=== PATIENT | male | born 1950 | race Hispanic/Latino ===

== ENCOUNTER 2016-07-20 12:24 | Inpatient (IN) | payer MEDICARE ==
[~2016-07-20] VITALS: Ht 170.2 cm; Wt 63.5 kg
[2016-07-20 12:24] VITALS: BP 122/69
[~2016-07-20 12:24] MED LIST: ACETAMINOPHEN325 M1 ORAL; ACETAMINOPHEN500 M5 PO; ACTOS15 MG ORAL; ACTOS30 MG ORAL; ASPIRIN; ASPIRIN81 MG ORAL; ATIVAN2 MG/ML PO; ATORVASTATIN CA80 MG ORAL; BUSPAR10 MG ORAL; CATAPRES0.1 MG ORAL; CEFTRIAXONE1 G2 IVPB; CIPRO500 MG PO; CLONIDINE0.1 MG ORAL; CLOPIDOGREL75 MG ORAL; COLACE100 MG ORAL; DILANTIN50 MG PO; DITROPAN XL5 MG ORAL; DOCUSATE SODIU100 MG ORAL; FEOSOL325 MG ORAL; FERROUS SULFAT325 MG ORAL; FINASTERIDE5 MG ORAL; FLOMAX0.4 MG ORAL; GEODON20 MG ORAL; GEODON40 MG ORAL; GLUCOPHAGE500 MG ORAL; GLUCOSE4 GM PO; HEPARIN SO5000 UNIT2 SUBQ; HEPARIN2000 UNIT/ SUBQ; IBUPROFEN400 MG ORAL; JANUMET 50-1,01 EACH ORAL; JANUVIA100 MG ORAL; KEPPRA500 MG ORAL; LAMICTAL25 MG ORAL; LEVAQUIN500 MG ORAL; LEVEMIR FL100 UNIT/1 SUBQ; LEVETIRACETAM500 MG ORAL; LISINOPRIL10 MG ORAL; LISINOPRIL20 MG ORAL; LORAZEPAM2 MG/1 M3 IVP; Levetiracetam ORAL; MAGNESIUM OXID400 M1 ORAL; MEGACE400 MG/11 PO; METFORMIN HCL1000 M1 ORAL; METFORMIN HCL500 M1 ORAL; MIRTAZAPINE15 M3 ORAL; MORPHINE 22 MG/1 ML IVP; MYLANTA II30 ML PO; NOVOLOG100 UNIT/3 SUBQ; NOVOLOG100 UNITS1 SUBQ; OMEPRAZOLE20 M2 ORAL; PANTOPRAZOLE SO40 MG ORAL; PLAVIX75 MG ORAL; POLYETHYLENE GL17 GM ORAL; PROSCAR5 MG ORAL; RISPERDAL1 MG ORAL; RISPERDAL2 MG ORAL; ROBITUSSIN DM5 ML PO; SERTRALINE HCL25 MG ORAL; SIMVASTATIN40 MG ORAL; STARLIX60 MG ORAL; TAMSULOSIN HCL0.4 MG ORAL; TRADJENTA5 MG PO; TYLENOL325 MG ORAL; ZESTRIL20 MG ORAL; ZOFRAN 4 MG4 MG/2 ML IVP; ZOFRAN4 M3 IVP; ZOLPIDEM TARTRAT5 MG ORAL; ZYPREXA2.5 MG ORAL
[2016-07-20] MEDS ORDERED: Haloperidol 5mg/ml Inj IM ONE (12:45)
[2016-07-20] MEDS ORDERED: ALBUTEROL2.5 MG/3 M INH (12:58)
[2016-07-20] MEDS ORDERED: DEPAKOTE ER500 MG ORAL (12:58)
[2016-07-20] MEDS ORDERED: STARLIX60 MG ORAL (12:58)
[2016-07-20] MEDS ORDERED: Ipratropium 0.02% Inh Soln 2.5ml UD HHN ONE (13:30)
[2016-07-20] MEDS ORDERED: LORazepam Inj 2mg/ml 1ml IM ONE (13:30)
[2016-07-20] MEDS ORDERED: Albuterol ud Inhalation HHN ONE (13:30)
[2016-07-20 13:40] VITALS: BP 105/58
--- NOTE | 2016-07-20 14:09 | Diagnostic Imaging Report ---
Indication: Dyspnea Comparison: 05/18/16 A single view chest radiograph was obtained. Findings: The left hemidiaphragm is mildly elevated. Heart size is within normal limits. Aorta is mildly patent. Bones are osteopenic. Impression: No acute findings
[2016-07-20 14:38] LABS: APPEARANCE,URINE CLEAR; KETONES,URINE 2+ (NEGATIVE); LEUKOCYTE ESTERASE ,URINE NEGATIVE (NEGATIVE); NITRITE,URINE NEGATIVE (NEGATIVE); PH,URINE 6 (4.5-8.0); PROTEIN,URINE NEGATIVE (NEGATIVE); UROBILINOGEN,URINE 1 MG/DL (0.0-1.0)
[2016-07-20 14:40] LABS: BASOPHILS % (AUTO) 1.2 % (0.0-2.0); EOSINOPHILS % (AUTO) 0.8 % (0.0-3.0); LYMPHOCYTES % (AUTO) 21.6 % (20.0-45.0); MEAN CORPUSCULAR HEMOGLOBIN 29.6 PG (27.0-31.0); MEAN CORPUSCULAR VOLUME 93 FL (80-99); MEAN PLATELET VOLUME 9.5 FL (6.5-10.1); MONOCYTES % (AUTO) 8.6 % (1.0-10.0); NEUTROPHILS % (AUTO) 67.8 % (45.0-75.0); PLATELET COUNT 158 K/UL (150-450); RED BLOOD COUNT 4.23 M/UL (4.70-6.10); RED CELL DISTRIBUTION WIDTH 12.4 % (11.6-14.8); WHITE BLOOD COUNT 6.3 K/UL (4.8-10.8)
[2016-07-20 14:49] LABS: BACTERIA,URINE OCCASIONAL /HPF; SQUAMOUS EPITHELIAL CELL,UR OCCASIONAL /LPF (NONE/OCC); WBC,URINE 0-2 /HPF (0 - 0)
[2016-07-20] MEDS ORDERED: Promethazine/Codeine 5ml UD ORAL PRN (15:00)
[2016-07-20] MEDS ORDERED: Morphine Sulfate 2mg/ml Inj IVP PRN (15:00)
[2016-07-20] MEDS ORDERED: DuoNeb 0.5-3(2.5)mg/3ml neb HHN PRN (15:00)
[2016-07-20] MEDS ORDERED: Nitroglycerin Subl 0.4mg tab (Bottle Of 25) SL PRN (15:00)
--- NOTE | 2016-07-20 15:01 | Emergency Room Report ---
History of Present Illness General Chief Complaint: Upper Respiratory Illness Source: Medical Record Present Illness HPI 65-year-old male presents ED for evaluation. Patient brought in by EMS for evaluation. Per convalescent home patient has been more weak than usual, congested. Patient has history of CVA and schizophrenia. Patient is unable to provide any additional history at this time. No reported fevers or chills. No reported cough chest pain or shortness of breath. Patient has history of COPD. No other aggravating or relieving factors. No other associated symptoms Allergies: Coded Allergies: No Known Allergies (Unverified , 01/05/13) Patient History Past Medical History: DM, HTN, CVA/TIA, seizures, psych hx Past Surgical History: none Social History: Denies: alcohol use, drug use, smoking Immunizations: UTD Reviewed Nursing Documentation: PMH: Agreed, PSxH: Agreed Nursing Documentation-PMH Hx Cardiac Problems: Yes - CHF Hx Hypertension: Yes Hx Diabetes: Yes Hx Cancer: No Hx Gastrointestinal Problems: No History Of Psychiatric Problem: Yes - anxiety disorder; schizophrenia; enecephalapathy Hx Neurological Problems: Yes - CVA, Dysphagia, epilepsy Hx Cerebrovascular Accident: Yes Hx Seizures: Yes Hx Epilepsy: Yes Hx Dysphasia: Yes Review of Systems All Other Systems: negative except mentioned in HPI Physical Exam Vital Signs Date Time Temp Pulse Resp B/P Pulse Ox O2 Delivery O2 Flow Rate FiO2 07/20/16 12:19 98.1 71 16 122/69 95 Room Air Sp02 EP Interpretation: reviewed, normal General Appearance: no apparent distress, alert, GCS 15, non-toxic Head: normocephalic Eyes: bilateral eye PERRL, bilateral eye normal inspection ENT: normal ENT inspection Neck: normal inspection Respiratory: decreased breath sounds, wheezing Cardiovascular #1: regular rate, rhythm, no edema Gastrointestinal: normal bowel sounds, non tender, soft, non-distended, no guarding, no rebound Rectal: deferred Genitourinary: no CVA tenderness Musculoskeletal: normal inspection Neurologic: other - CVA Psychiatric: other - schizophrenia Skin: normal inspection Lymphatic: normal inspection Medical Decision Making Diagnostic Impression: Primary Impression: COPD (chronic obstructive pulmonary disease) Qualified Codes: J44.9 - Chronic obstructive pulmonary disease, unspecified ER Course Hospital Course 65-year-old male presents to ED for reports of coughing congestion. History of COPD Differential diagnoses include: Pneumonia, CHF exacerbation, pneumothorax, fluid overload Clinical course Patient placed on stretcher. 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 After initial history and physical, I ordered nebulizer treatments. I ordered labs, IV fluids, EKG, chest x-ray, blood cultures, UA. Patient placed on nasal cannula with O2 saturation improving Labs - no leukocytosis, hemoglobin/hematocrit stable, electrolytes okay, lactate okay, troponins negative CXR - no acute infiltrate identified abx given. Case discussed with Dr. Gastelum and he agreed to the patient to his service for further care and support I feel this is a highly complex case requiring extensive working including EKG/ Rhythm strip, Xray/CT/US, Blood/urine lab work, repeat exams while in ED, and administration of strong opiates/narcotics for pain control, admission to hospital or close patient follow up. Diagnosis - COPD Patient admitted to floor in serious condition Labs Test 07/20/16 14:00 07/20/16 14:15 White Blood Count 6.3 K/UL (4.8-10.8) Red Blood Count 4.23 M/UL (4.70-6.10) Hemoglobin 12.5 G/DL (14.2-18.0) Hematocrit 39.2 % (42.0-52.0) Mean Corpuscular Volume 93 FL (80-99) Mean Corpuscular Hemoglobin 29.6 PG (27.0-31.0) Mean Corpuscular Hemoglobin Concent 32.0 G/DL (32.0-36.0) Red Cell Distribution Width 12.4 % (11.6-14.8) Platelet Count 158 K/UL (150-450) Mean Platelet Volume 9.5 FL (6.5-10.1) Neutrophils (%) (Auto) 67.8 % (45.0-75.0) Lymphocytes (%) (Auto) 21.6 % (20.0-45.0) Monocytes (%) (Auto) 8.6 % (1.0-10.0) Eosinophils (%) (Auto) 0.8 % (0.0-3.0) Basophils (%) (Auto) 1.2 % (0.0-2.0) Urine Color Yellow Urine Appearance Clear Urine pH 6 (4.5-8.0) Urine Specific [place] 1.010 (1.005-1.035) Urine Protein Negative (NEGATIVE) Urine Glucose (UA) Negative (NEGATIVE) Urine Ketones 2+ (NEGATIVE) Urine Occult Blood 1+ (NEGATIVE) Urine Nitrite Negative (NEGATIVE) Urine Bilirubin Negative (NEGATIVE) Urine Urobilinogen 1 MG/DL (0.0-1.0) Urine Leukocyte Esterase Negative (NEGATIVE) Urine RBC 2-4 /HPF (0 - 0) Urine WBC 0-2 /HPF (0 - 0) Urine Squamous Epithelial Cells Occasional /LPF Urine Bacteria Occasional /HPF (NONE) EKG Diagnostic Results Rate: normal Rhythm: NSR ST Segments: no acute changes ASA given to the pt in ED: No Rhythm Strip Diag. Results EP Interpretation: yes Rhythm: NSR, no PVC's, no ectopy Chest X-Ray Diagnostic Results EP Interpretation: Yes Findings: no consolidation, no effusion, no pneumothorax, no acute cardiopulmonary disease Number of Views: 1 Last Vital Signs Date Time Temp Pulse Resp B/P Pulse Ox O2 Delivery O2 Flow Rate FiO2 07/20/16 13:40 98.1 65 20 105/58 98 Room Air Status: improved Disposition: ADMITTED INPATIENT Condition: Serious Referrals: FABIO GASTELUM (PCP) GRACE JEFFERS M.D. Jul 20, 2016 15:01
[2016-07-20 15:12] LABS: ALANINE AMINOTRANSFERASE 12 U/L (3-41); ALBUMIN/GLOBULIN RATIO 1.6 (1.0-2.7); ANION GAP 13 (5-15); ASPARTATE AMINO TRANSFERASE 19 U/L (5-40); CARBON DIOXIDE 27 mEQ/L (20-30); CHLORIDE 100 mEQ/L (98-107); CREATININE 0.9 mg/dL (0.7-1.2); GLOMERULAR FILTRATION RATE > 60 mL/min (>60); HEMOLYSIS 39; POTASSIUM 4.3 mEQ/L (3.4-4.9); SODIUM 140 mEQ/L (135-145); TOTAL PROTEIN 6.6 g/dL (6.6-8.7); TROPONIN I < 0.30 ng/mL (<=0.30)
--- NOTE | 2016-07-20 15:18 | Infectious Diseases Prog Note ---
Assessment/Plan Problems: (1) Upper respiratory infection Assessment & Plan: will start doxycycline, send influenza screening (2) COPD (chronic obstructive pulmonary disease) Assessment & Plan: with acute exacerbation, continue nebulizer treatment, steroids, and doxycycline (3) DM (diabetes mellitus) Assessment & Plan: recommend tight glycemic control to keep blood glucose between 80-120 (4) HTN (hypertension) Assessment & Plan: continue meds to keep systolic less than 140 Subjective Allergies: Coded Allergies: No Known Allergies (Unverified , 01/05/13) Objective Vital Signs Last 24 Hour Vital Signs Date Time Temp Pulse Resp B/P Pulse Ox O2 Delivery O2 Flow Rate FiO2 07/20/16 13:40 98.1 65 20 105/58 98 Room Air 07/20/16 12:24 71 16 Room Air 07/20/16 12:24 98.1 16 122/69 95 Room Air 07/20/16 12:19 98.1 71 16 122/69 95 Room Air Height (Feet): 5 Height (Inches): 7.00 Weight (Pounds): 140 Laboratory Tests Test 07/20/16 14:00 07/20/16 14:15 White Blood Count 6.3 K/UL (4.8-10.8) Red Blood Count 4.23 M/UL (4.70-6.10) L Hemoglobin 12.5 G/DL (14.2-18.0) L Hematocrit 39.2 % (42.0-52.0) L Mean Corpuscular Volume 93 FL (80-99) Mean Corpuscular Hemoglobin 29.6 PG (27.0-31.0) Mean Corpuscular Hemoglobin Concent 32.0 G/DL (32.0-36.0) Red Cell Distribution Width 12.4 % (11.6-14.8) Platelet Count 158 K/UL (150-450) Mean Platelet Volume 9.5 FL (6.5-10.1) Neutrophils (%) (Auto) 67.8 % (45.0-75.0) Lymphocytes (%) (Auto) 21.6 % (20.0-45.0) Monocytes (%) (Auto) 8.6 % (1.0-10.0) Eosinophils (%) (Auto) 0.8 % (0.0-3.0) Basophils (%) (Auto) 1.2 % (0.0-2.0) Sodium Level 140 mEQ/L (135-145) Potassium Level 4.3 mEQ/L (3.4-4.9) Chloride Level 100 mEQ/L (98-107) Carbon Dioxide Level 27 mEQ/L (20-30) Anion Gap 13 (5-15) Blood Urea Nitrogen 17 mg/dL (7-23) Creatinine 0.9 mg/dL (0.7-1.2) Estimat Glomerular Filtration Rate > 60 mL/min (>60) Glucose Level 152 mg/dL (74-106) H Lactic Acid Level 1.50 mmol/L (0.66-2.22) Calcium Level 9.0 mg/dL (8.6-10.2) Total Bilirubin 0.4 mg/dL (0.0-1.2) Aspartate Amino Transf (AST/SGOT) 19 U/L (5-40) Alanine Aminotransferase (ALT/SGPT) 12 U/L (3-41) Alkaline Phosphatase 42 U/L (40-129) Total Creatine Kinase 104 U/L (38-174) Creatine Kinase MB Pending Troponin I Pending Pro-B-Type Natriuretic Peptide Pending Total Protein 6.6 g/dL (6.6-8.7) Albumin 4.1 g/dL (3.5-5.2) Globulin 2.5 g/dL Albumin/Globulin Ratio 1.6 (1.0-2.7) Urine Color Yellow Urine Appearance Clear Urine pH 6 (4.5-8.0) Urine Specific [place] 1.010 (1.005-1.035) Urine Protein Negative (NEGATIVE) Urine Glucose (UA) Negative (NEGATIVE) Urine Ketones 2+ (NEGATIVE) H Urine Occult Blood 1+ (NEGATIVE) H Urine Nitrite Negative (NEGATIVE) Urine Bilirubin Negative (NEGATIVE) Urine Urobilinogen 1 MG/DL (0.0-1.0) H Urine Leukocyte Esterase Negative (NEGATIVE) Urine RBC 2-4 /HPF (0 - 0) H Urine WBC 0-2 /HPF (0 - 0) Urine Squamous Epithelial Cells Occasional /LPF Urine Bacteria Occasional /HPF (NONE) Current Medications Medications (Trade) Dose Ordered Sig/Kun Route PRN Reason Start Time Stop Time Status Last Admin Dose Admin Acetaminophen (Tylenol) 650 mg Q4H PRN ORAL fever 07/20/16 15:00 08/19/16 14:59 UNV Albuterol/ Ipratropium (DuoNeb 0.5-3(2.5)mg/3ml) 3 ml EVERY 4 HOURS PRN HHN dyspnea 07/20/16 15:00 07/25/16 14:59 UNV Atorvastatin Calcium (Lipitor) 80 mg BEDTIME ORAL 07/20/16 21:00 08/19/16 20:59 UNV Buspirone HCl (Buspar) 7.5 mg BID ORAL 07/20/16 18:00 08/19/16 17:59 UNV Clonidine HCl (Catapres) 0.1 mg EVERY 4 HOURS PRN ORAL sbp more than 160 07/20/16 15:00 08/19/16 14:59 UNV Clonidine HCl (Catapres) 0.1 mg Q6H PRN ORAL For High Blood Pressure 07/20/16 15:00 08/19/16 14:59 UNV Dextrose (Dextrose 50%) STAT PRN IV Hypoglycemia 07/20/16 15:00 08/19/16 14:59 UNV Dextrose (Dextrose 50%) STAT PRN IV Hypoglycemia 07/20/16 15:00 08/19/16 14:59 UNV Divalproex Sodium (Depakote ER) 500 mg EVERY 12 HOURS ORAL 07/20/16 21:00 08/19/16 20:59 UNV Finasteride (Proscar) 5 mg DAILY ORAL 07/21/16 09:00 08/20/16 08:59 UNV Heparin Sodium (Porcine) (Heparin 5000 units/ml) 5,000 units EVERY 12 HOURS SUBQ 07/20/16 21:00 08/19/16 20:59 UNV Insulin Aspart (NovoLOG) BEFORE MEALS AND HS SUBQ 07/20/16 16:30 08/19/16 16:29 UNV Lamotrigine (LaMICtal) 25 mg BID ORAL 07/20/16 18:00 08/19/16 17:59 UNV Lisinopril (Prinivil) 20 mg DAILY ORAL 07/21/16 09:00 08/20/16 08:59 UNV Lorazepam (Ativan 2mg/ml 1ml) 0.5 mg Q4H PRN IV For Anxiety 07/20/16 15:00 07/27/16 14:59 UNV Methylprednisolone Sodium Succinate (Solu-MEDROL) 60 mg EVERY 6 HOURS IV 07/20/16 18:00 08/19/16 17:59 UNV Morphine Sulfate (Morphine Sulfate) 2 mg EVERY 4 HOURS PRN IVP severe pain 7-10 07/20/16 15:00 07/27/16 14:59 UNV Nitroglycerin (Ntg) 0.4 mg Q5M X 3 DOSES PRN SL Prn Chest Pain 07/20/16 15:00 08/19/16 14:59 UNV Olanzapine (ZyPREXA) 2.5 mg BID ORAL 07/20/16 18:00 08/19/16 17:59 UNV Ondansetron HCl (Zofran) 4 mg Q6H PRN IVP Nausea & Vomiting 07/20/16 15:00 08/19/16 14:59 UNV Promethazine HCl/ Codeine (Phenergan with Codeine) 5 ml EVERY 6 HOURS PRN ORAL cough 07/20/16 15:00 08/19/16 14:59 UNV Tamsulosin HCl (Flomax) 0.4 mg BEDTIME ORAL 07/20/16 21:00 08/19/16 20:59 UNV Temazepam (Restoril) 15 mg HSPRN PRN ORAL Insomnia 07/20/16 15:00 07/27/16 14:59 UNV Theophylline (John-Dur) 100 mg EVERY 12 HOURS ORAL 07/20/16 21:00 08/19/16 20:59 UNV Ziprasidone (Geodon) 40 mg DAILY ORAL 07/21/16 09:00 08/20/16 08:59 UNV Marcus Mobley M.D. Jul 20, 2016 15:18
[2016-07-20 15:22] LABS: CKMB 2.5 ng/mL (< 6.7)
[2016-07-20 15:41] VITALS: BP 111/61
--- NOTE | 2016-07-20 16:22 | Consultation ---
History of Present Illness General Date patient seen: Jul 20, 2016 Chief Complaint: Upper Respiratory Illness Present Illness HPI 65-year-old male with hx of CVA, COPD, bed bound, snf resident presents ED for evaluation of weakness, cough, dyspnea and congestion . Patient has history of CVA and schizophrenia. Patient is unable to provide any additional history at this time. No reported fevers or chills. No other aggravating or relieving factors. He is awake, can't communicate but looks comfortable and awake. Allergies: Coded Allergies: No Known Allergies (Unverified , 01/05/13) Medication History Scheduled Aspirin* (Aspirin*), 81 MG ORAL DAILY, (Reported) Atorvastatin Calcium* (Lipitor*), 80 MG ORAL BEDTIME, (Reported) Buspirone Hcl* (Buspar*), 7.5 MG ORAL BID, (Reported) Ceftriaxone Sodium (Ceftriaxone), 1 GM IVPB DAILY, (Reported) Clopidogrel Bisulfate* (Plavix*), 75 MG ORAL DAILY Clopidogrel Bisulfate* (Plavix*), 75 MG ORAL DAILY, (Reported) Divalproex Sodium* (Depakote Er*), 500 MG ORAL EVERY 12 HOURS, (Reported) Docusate Sodium* (Colace*), 100 MG ORAL TWICE A DAY Ferrous Sulfate (Feosol), 325 MG ORAL DAILY Finasteride (Finasteride), 5 MG ORAL DAILY Finasteride* (Proscar*), 5 MG ORAL DAILY, (Reported) Heparin Sod (Porcine) (Heparin Sodium*), 5,000 UNITS SUBQ EVERY 12 HOURS, ( Reported) Insulin Aspart (Novolog Flexpen), 0 UNITS SUBQ NOVOTIAC Insulin Detemir (Levemir Flexpen), 10 UNITS SUBQ BIAC Lamotrigine* (Lamictal*), 25 MG ORAL BID Lisinopril (Lisinopril*), 20 MG ORAL DAILY Lisinopril* (Zestril*), 20 MG ORAL DAILY, (Reported) Magnesium Oxide (Magnesium Oxide), 400 MG ORAL BID, (Reported) Megestrol Acetate (Megace), 400 MG PO DAILY, (Reported) Metformin Hcl* (Glucophage*), 500 MG ORAL BEFORE BREAKFAST Metformin Hcl* (Metformin Hcl*), 1,000 MG ORAL BID, (Reported) Nateglinide* (Starlix*), 120 MG ORAL THREE TIMES A DAY, (Reported) Nateglinide* (Starlix*), 120 MG ORAL THREE TIMES A DAY, (Reported) Olanzapine* (Zyprexa*), 2.5 MG ORAL BID, (Reported) Oxybutynin Chloride (Ditropan Xl), 2.5 MG ORAL BID, (Reported) Sitagliptin (Januvia), 100 MG ORAL ACBREAKFAST Tamsulosin HCl (Flomax), 0.4 MG ORAL BEDTIME Ziprasidone Hcl* (Geodon*), 40 MG ORAL DAILY [Levetiracetam], 500 MG ORAL Q12HR Scheduled PRN Acetaminophen* (Acetaminophen*), 650 MG ORAL Q6H PRN for Mild Pain/Temp > 100.5 Al Hydroxide/mg Hydroxide (Mag-Al Plus Suspension), 30 ML PO Q6HR PRN for dyspepsia, (Reported) Albuterol Sulfate* (Albuterol Sulfate Hhn*), 3 ML INH Q6H PRN for Shortness of Breath, (Reported) Clonidine HCl (Clonidine HCl), 0.1 MG ORAL Q6H PRN for For High Blood Pressure Clonidine Hcl* (Catapres*), 0.1 MG ORAL EVERY 6 HOURS PRN for For High Blood Pressure, (Reported) Lorazepam (Lorazepam), 0.5 MG IVP Q4H PRN for For Anxiety, (Reported) Morphine Sulfate* (Morphine Sulfate*), 1 MG IVP Q4HR PRN for For Pain, (Reported ) Ondansetron* (Zofran*), 4 MG IVP Q6HR PRN for Nausea & Vomiting, (Reported) Ondansetron* (Zofran*), 4 MG IVP Q6H PRN for Nausea & Vomiting, (Reported) Polyethylene Glycol 3350* (Polyethylene Glycol 3350*), 17 GM ORAL HS PRN for Constipation, (Reported) Zolpidem Tartrate* (Zolpidem Tartrate*), 5 MG ORAL BEDTIME PRN for Insomnia, ( Reported) Patient History Healthcare decision maker Resuscitation status Advanced Directive on File Past Medical/Surgical History Past Medical/Surgical History: (1) Arterial ischemic stroke, multifocal, mult vascular territories, chron (2) HTN (hypertension) (3) DM (diabetes mellitus) (4) COPD (chronic obstructive pulmonary disease) (5) Seizure disorder Review of Systems Respiratory: Reports: cough, shortness of breath All Other Systems: negative except mentioned in HPI Physical Exam General Appearance: WD/WN Lines, tubes and drains: peripheral, central line HEENT: normocephalic, atraumatic Neck: non-tender, normal alignment, abnormal alignment, limited range of motion Respiratory/Chest: chest wall non-tender, lungs clear Breasts: no masses Cardiovascular/Chest: normal peripheral pulses Abdomen: normal bowel sounds, non tender Last 24 Hour Vital Signs Date Time Temp Pulse Resp B/P Pulse Ox O2 Delivery O2 Flow Rate FiO2 07/20/16 15:41 98.0 66 15 111/61 95 Room Air 07/20/16 13:40 98.1 65 20 105/58 98 Room Air 07/20/16 12:24 71 16 Room Air 07/20/16 12:24 98.1 16 122/69 95 Room Air 07/20/16 12:19 98.1 71 16 122/69 95 Room Air Laboratory Tests Test 07/20/16 14:00 07/20/16 14:15 White Blood Count 6.3 K/UL (4.8-10.8) Red Blood Count 4.23 M/UL (4.70-6.10) L Hemoglobin 12.5 G/DL (14.2-18.0) L Hematocrit 39.2 % (42.0-52.0) L Mean Corpuscular Volume 93 FL (80-99) Mean Corpuscular Hemoglobin 29.6 PG (27.0-31.0) Mean Corpuscular Hemoglobin Concent 32.0 G/DL (32.0-36.0) Red Cell Distribution Width 12.4 % (11.6-14.8) Platelet Count 158 K/UL (150-450) Mean Platelet Volume 9.5 FL (6.5-10.1) Neutrophils (%) (Auto) 67.8 % (45.0-75.0) Lymphocytes (%) (Auto) 21.6 % (20.0-45.0) Monocytes (%) (Auto) 8.6 % (1.0-10.0) Eosinophils (%) (Auto) 0.8 % (0.0-3.0) Basophils (%) (Auto) 1.2 % (0.0-2.0) Sodium Level 140 mEQ/L (135-145) Potassium Level 4.3 mEQ/L (3.4-4.9) Chloride Level 100 mEQ/L (98-107) Carbon Dioxide Level 27 mEQ/L (20-30) Anion Gap 13 (5-15) Blood Urea Nitrogen 17 mg/dL (7-23) Creatinine 0.9 mg/dL (0.7-1.2) Estimat Glomerular Filtration Rate > 60 mL/min (>60) Glucose Level 152 mg/dL (74-106) H Lactic Acid Level 1.50 mmol/L (0.66-2.22) Calcium Level 9.0 mg/dL (8.6-10.2) Total Bilirubin 0.4 mg/dL (0.0-1.2) Aspartate Amino Transf (AST/SGOT) 19 U/L (5-40) Alanine Aminotransferase (ALT/SGPT) 12 U/L (3-41) Alkaline Phosphatase 42 U/L (40-129) Total Creatine Kinase 104 U/L (38-174) Creatine Kinase MB 2.5 ng/mL (< 6.7) Creatine Kinase MB Relative Index 2.4 Troponin I < 0.30 ng/mL (<=0.30) Pro-B-Type Natriuretic Peptide 241 pg/mL (0-125) H Total Protein 6.6 g/dL (6.6-8.7) Albumin 4.1 g/dL (3.5-5.2) Globulin 2.5 g/dL Albumin/Globulin Ratio 1.6 (1.0-2.7) Urine Color Yellow Urine Appearance Clear Urine pH 6 (4.5-8.0) Urine Specific [place] 1.010 (1.005-1.035) Urine Protein Negative (NEGATIVE) Urine Glucose (UA) Negative (NEGATIVE) Urine Ketones 2+ (NEGATIVE) H Urine Occult Blood 1+ (NEGATIVE) H Urine Nitrite Negative (NEGATIVE) Urine Bilirubin Negative (NEGATIVE) Urine Urobilinogen 1 MG/DL (0.0-1.0) H Urine Leukocyte Esterase Negative (NEGATIVE) Urine RBC 2-4 /HPF (0 - 0) H Urine WBC 0-2 /HPF (0 - 0) Urine Squamous Epithelial Cells Occasional /LPF Urine Bacteria Occasional /HPF (NONE) Microbiology Date/Time Source Procedure Growth Status 07/20/16 14:15 Nasal Nares Influenza Types A,B Antigen (LIZA) - Final Complete Height (Feet): 5 Height (Inches): 7.00 Weight (Pounds): 140 Medications Current Medications Medications (Trade) Dose Ordered Sig/Kun Route PRN Reason Start Time Stop Time Status Last Admin Dose Admin Acetaminophen (Tylenol) 650 mg Q4H PRN ORAL fever 07/20/16 15:00 08/19/16 14:59 UNV Albuterol/ Ipratropium (DuoNeb 0.5-3(2.5)mg/3ml) 3 ml EVERY 4 HOURS PRN HHN dyspnea 07/20/16 15:00 07/25/16 14:59 UNV Atorvastatin Calcium (Lipitor) 80 mg BEDTIME ORAL 07/20/16 21:00 08/19/16 20:59 UNV Buspirone HCl (Buspar) 7.5 mg BID ORAL 07/20/16 18:00 08/19/16 17:59 UNV Clonidine HCl (Catapres) 0.1 mg EVERY 4 HOURS PRN ORAL sbp more than 160 07/20/16 15:00 08/19/16 14:59 UNV Dextrose (Dextrose 50%) STAT PRN IV Hypoglycemia 07/20/16 15:00 08/19/16 14:59 Divalproex Sodium (Depakote ER) 500 mg EVERY 12 HOURS ORAL 07/20/16 21:00 08/19/16 20:59 UNV Doxycycline Monohydrate (Vibramycin) 100 mg ONCE ONCE ORAL 07/20/16 15:30 07/20/16 15:31 UNV Finasteride (Proscar) 5 mg DAILY ORAL 07/21/16 09:00 08/20/16 08:59 UNV Heparin Sodium (Porcine) (Heparin 5000 units/ml) 5,000 units EVERY 12 HOURS SUBQ 07/20/16 21:00 08/19/16 20:59 UNV Insulin Aspart (NovoLOG) BEFORE MEALS AND HS SUBQ 07/20/16 16:30 08/19/16 16:29 UNV Lamotrigine (LaMICtal) 25 mg BID ORAL 07/20/16 18:00 08/19/16 17:59 UNV Lisinopril (Prinivil) 20 mg DAILY ORAL 07/21/16 09:00 08/20/16 08:59 UNV Lorazepam (Ativan 2mg/ml 1ml) 0.5 mg Q4H PRN IV For Anxiety 07/20/16 15:00 07/27/16 14:59 UNV Methylprednisolone Sodium Succinate (Solu-MEDROL) 60 mg EVERY 6 HOURS IV 07/20/16 18:00 08/19/16 17:59 UNV Morphine Sulfate (Morphine Sulfate) 2 mg EVERY 4 HOURS PRN IVP severe pain 7-10 07/20/16 15:00 07/27/16 14:59 UNV Nitroglycerin (Ntg) 0.4 mg Q5M X 3 DOSES PRN SL Prn Chest Pain 07/20/16 15:00 08/19/16 14:59 Olanzapine (ZyPREXA) 2.5 mg BID ORAL 07/20/16 18:00 08/19/16 17:59 UNV Ondansetron HCl (Zofran) 4 mg Q6H PRN IVP Nausea & Vomiting 07/20/16 15:00 08/19/16 14:59 UNV Promethazine HCl/ Codeine (Phenergan with Codeine) 5 ml EVERY 6 HOURS PRN ORAL cough 07/20/16 15:00 08/19/16 14:59 Tamsulosin HCl (Flomax) 0.4 mg BEDTIME ORAL 07/20/16 21:00 08/19/16 20:59 UNV Temazepam (Restoril) 15 mg HSPRN PRN ORAL Insomnia 07/20/16 15:00 07/27/16 14:59 UNV Theophylline (John-Dur) 100 mg EVERY 12 HOURS ORAL 07/20/16 21:00 08/19/16 20:59 UNV Ziprasidone (Geodon) 40 mg DAILY ORAL 07/21/16 09:00 08/20/16 08:59 UNV Assessment/Plan Problem List: (1) Upper respiratory infection ICD Codes: J06.9 - Acute upper respiratory infection, unspecified SNOMED: 04690257 Qualifiers: (2) COPD with acute exacerbation ICD Codes: J44.1 - Chronic obstructive pulmonary disease with (acute) exacerbation SNOMED: 983260086 (3) Seizure disorder ICD Codes: G40.909 - Seizure disorder SNOMED: 585833914 (4) Episode of generalized weakness ICD Codes: R53.1 - Weakness SNOMED: 02759124 (5) HTN (hypertension) ICD Codes: I10 - Hypertension SNOMED: 59504621 Qualifiers: Qualified Codes: I10 - Essential (primary) hypertension Assessment/Plan respiratory treatment IV antibiotics check sputum check cultures f/u MICHELLE Segal Jul 20, 2016 16:22
[2016-07-20 17:41] VITALS: BP 125/70
[2016-07-20 19:56] VITALS: BP 160/83
[2016-07-20] MEDS: Atorvastatin 80mg tab ORAL SCH (21:00)
[2016-07-20] MEDS: Heparin 5000 units/ml inj SUBQ SCH (21:00)
[2016-07-20] MEDS: Tamsulosin 0.4mg cap ORAL SCH (21:00)
[2016-07-20] MEDS: Theophylline ER 100mg ORAL SCH (21:00)
[2016-07-20] MEDS ORDERED: LORazepam 1mg tab ORAL ONE (22:30)
[2016-07-20] MEDS ORDERED: cloNIDine 0.2mg Tab ORAL ONE (22:30)
[2016-07-20 22:50] VITALS: BP 146/76
--- NOTE | 2016-07-20 23:58 | History and Physical Report ---
DATE OF ADMISSION: 07/20/2016 TIME SEEN: At 3 p.m. ADMITTING PHYSICIAN: Nura Carter M.D. CONSULTING PHYSICIAN: 1. Mey Latham M.D. 2. Marcus Mobley M.D. 3. Berto Umana M.D. CHIEF COMPLAINT: Shortness of breath. BRIEF HISTORY OF PRESENT ILLNESS: This is a 65-year-old male, from [facility], presents to [place] ER with history of increasing shortness of breath for two days, getting worse, coughing, diagnosed with pneumonia and sepsis and encephalopathy, being admitted to the medical floor. Currently, calm in bed in the ER and not talking. REVIEW OF SYSTEMS: Not available. PAST MEDICAL HISTORY: Encephalopathy, CVA, and COPD. PAST SURGICAL HISTORY: Unknown. ALLERGIES: Denies. MEDICATIONS: Proscar, Prinivil, Geodon, Depakote, Lamictal, Zyprexa, Flomax, Solu-Medrol, and Catapres. SOCIAL HISTORY: No smoke. No alcohol. No intravenous drug abuse. FAMILY HISTORY: Noncontributory. PHYSICAL EXAMINATION: GENERAL: The patient is lethargic, in bed, oriented x1, no acute distress. VITAL SIGNS: Temperature is 98 degrees, pulse 65, respirations 20, and blood pressure 105/58. CARDIOVASCULAR: No murmur. LUNGS: Poor air exchange. ABDOMEN: Bowel sounds are positive. Nontender. Nondistended. EXTREMITIES: No cyanosis, clubbing, or edema. NEUROLOGICAL: The patient moves all extremities, slightly weak, x4. LABORATORY DATA: Hemoglobin is 12.5, otherwise CBC is normal. BMP is pending. Urinalysis, 2+ ketones and 1+ occult blood. ASSESSMENT: 1. Shortness of breath. 2. Pneumonia. 3. Encephalopathy. 4. Cerebrovascular accident. 5. Anemia. 6. Chronic obstructive pulmonary disease. PLAN: Continue premedications. O2 and pulmonary treatment. Steroids . Antibiotics per Infectious Diseases. Blood pressure and blood sugar control. Psychiatric treatment. OT/PT and dietary evaluation. CBC and BMP in the morning. Nura Carter D.O. DR: Adilia JOB#: [id number] CC:
--- NOTE | 2016-07-21 01:07 | Consultation ---
DATE OF CONSULTATION: REASON FOR CONSULTATION: Upper respiratory infection, COPD exacerbation, and recommendation for antibiotics therapy. REQUESTING PHYSICIAN: Nura Carter D.O. HISTORY OF PRESENT ILLNESS: The patient is a 65-year-old male with psychiatric disorder, dementia, and schizophrenia, was brought into [facility] for evaluation of upper respiratory illness. The patient was found to be congested. He is a poor historian, cannot provide any history. In the emergency room, temperature was 98.1 degrees with O2 saturation 95% on room air. Lung exam showed wheezing with diminished breathing sounds. Chest x-ray showed no evidence of acute infiltration or effusion. The patient was admitted to the hospital for evaluation of upper respiratory infection, bronchitis, and COPD exacerbation and I was asked by the primary provider for antibiotics recommendation. PAST MEDICAL HISTORY: Significant for diabetes, hypertension, CVA, seizure, and schizophrenia. PAST SURGICAL HISTORY: Negative. MEDICATIONS: He is on Proscar, Geodon, Lipitor, Depakote, Flomax, theophylline, BuSpar, lamotrigine, Zyprexa, methylprednisolone, NovoLog, Catapres, DuoNeb, Tylenol, morphine, Zofran, Ativan, Restoril, and nitroglycerin. ALLERGIES: He has no known drug allergy. SOCIAL HISTORY: He lives in detention facility. No recent drugs, tobacco, or alcohol. FAMILY HISTORY: Unable to obtain at this time. REVIEW OF SYSTEMS: Unable to obtain. The patient is a poor historian, cannot provide any history. PHYSICAL EXAMINATION: VITAL SIGNS: Temperature 98.1 degrees, pulse 65, respiration 20, blood pressure 105/68, and saturation 98% on room air. GENERAL: The patient is a middle-age male with dementia, lying in bed, alert, nonverbal, does not follow commands. HEENT: Normocephalic and atraumatic. Pupils reactive to light . NECK: Supple. No lymphadenopathy. CARDIOVASCULAR: Regular rate and rhythm. No murmur. LUNGS: Diminished breathing sound with wheezing on both sides. ABDOMEN: Soft, nontender, and nondistended. Positive bowel sounds. EXTREMITIES: No edema. No cyanosis. SKIN: No rash. No hives. LABORATORY AND DIAGNOSTIC DATA: Labs showed white count of 6.3, hemoglobin 12.5, platelet count of 158,000. BUN and creatinine so far pending. AST and ALT are pending. Urinalysis showed negative leukocyte esterase, negative nitrite, and 0-2 WBC. Microbiology pending. Imaging, chest x-ray showed no evidence of acute infiltration or effusion. ASSESSMENT AND PLAN: 1. Upper respiratory infection. The patient will be started on doxycycline empirically. We will send influenza screening. Await results. 2. Chronic obstructive pulmonary disease with acute exacerbation. Continue nebulizer treatment, steroids, and start doxycycline. 3. Diabetes. Recommend tight glycemic control to keep blood glucose between 80 to 120. 4. Hypertension. Continue oral medications to keep systolic blood sugar less than 140. 5. Psychiatric disorder, schizophrenic. Continue psychiatric medications. Follow up with Psychiatry. Marcus Mobley M.D. DR: Adam JOB#: [id number] CC: MASON
[2016-07-21 04:00] VITALS: BP 127/73
[2016-07-21] MEDS: Solu-MEDROL 125mg Inj IV SCH ×4 (06:04→17:28)
[2016-07-21] MEDS: NovoLOG Insulin Flexpen SUBQ SCH ×4 (06:32→20:34)
[2016-07-21 08:00] VITALS: BP 105/59
[2016-07-21 08:22] LABS: BASOPHILS % (AUTO) 0.5 % (0.0-2.0); EOSINOPHILS % (AUTO) 0.3 % (0.0-3.0); LYMPHOCYTES % (AUTO) 17.4 % (20.0-45.0); MEAN CORPUSCULAR HEMOGLOBIN 31.2 PG (27.0-31.0); MEAN CORPUSCULAR VOLUME 92 FL (80-99); MEAN PLATELET VOLUME 9.4 FL (6.5-10.1); MONOCYTES % (AUTO) 3.5 % (1.0-10.0); NEUTROPHILS % (AUTO) 78.4 % (45.0-75.0); PLATELET COUNT 151 K/UL (150-450); RED BLOOD COUNT 3.84 M/UL (4.70-6.10); RED CELL DISTRIBUTION WIDTH 12.4 % (11.6-14.8)
[2016-07-21 08:46] LABS: ALANINE AMINOTRANSFERASE 9 U/L (3-41); ALBUMIN/GLOBULIN RATIO 1.4 (1.0-2.7); ANION GAP 15 (5-15); ASPARTATE AMINO TRANSFERASE 15 U/L (5-40); CALCIUM 9.2 mg/dL (8.6-10.2); CARBON DIOXIDE 27 mEQ/L (20-30); CHLORIDE 101 mEQ/L (98-107); CREATININE 0.8 mg/dL (0.7-1.2); GLOMERULAR FILTRATION RATE > 60 mL/min (>60); HEMOLYSIS 5; POTASSIUM 4.4 mEQ/L (3.4-4.9); SODIUM 143 mEQ/L (135-145); TOTAL PROTEIN 6.4 g/dL (6.6-8.7)
[2016-07-21] MEDS: Lisinopril 20mg tab ORAL SCH (09:00)
[2016-07-21] MEDS: Heparin 5000 units/ml inj SUBQ SCH ×2 (09:00→20:33)
[2016-07-21] MEDS: Theophylline ER 100mg ORAL SCH ×2 (09:16→20:30)
[2016-07-21] MEDS: Depakote ER 500mg tab ORAL SCH ×2 (09:16→20:31)
[2016-07-21] MEDS: BusPIRone 5mg Tab ORAL SCH ×2 (09:18→17:28)
[2016-07-21] MEDS: Ziprasidone 20mg cap ORAL SCH (10:33)
[2016-07-21] MEDS: OLANZapine 2.5mg tab ORAL SCH ×3 (10:33→20:30)
[2016-07-21 12:00] VITALS: BP 115/63
--- NOTE | 2016-07-21 14:56 | General Progress Note ---
Assessment/Plan Problem List: (1) Pneumonia ICD Codes: J18.9 - Pneumonia, unspecified organism SNOMED: 102910761 (2) Arterial ischemic stroke, MCA (middle cerebral artery), right, chronic ICD Codes: Z86.73 - Arterial ischemic stroke, MCA (middle cerebral artery), right, chronic SNOMED: 399909905 (3) Sepsis ICD Codes: A41.9 - Sepsis, unspecified organism SNOMED: 32438718 (4) Encephalopathy ICD Codes: G93.40 - Encephalopathy, unspecified SNOMED: 71747844 (5) Episode of generalized weakness ICD Codes: R53.1 - Weakness SNOMED: 61666183 (6) Seizure disorder ICD Codes: G40.909 - Seizure disorder SNOMED: 643129980 (7) HTN (hypertension) ICD Codes: I10 - Hypertension SNOMED: 14808157 (8) COPD (chronic obstructive pulmonary disease) ICD Codes: J44.9 - Chronic obstructive pulmonary disease, unspecified SNOMED: 60511413 Qualifiers: Qualified Codes: J44.9 - Chronic obstructive pulmonary disease, unspecified Status: stable, progressing, tolerating diet Assessment/Plan o2 pulm tx ot pt diet abx cbc bmp am Subjective Constitutional: Reports: weakness Allergies: Coded Allergies: No Known Allergies (Unverified , 01/05/13) All Systems: reviewed and negative except above Subjective sleepy calm Objective Last 24 Hour Vital Signs Date Time Temp Pulse Resp B/P Pulse Ox O2 Delivery O2 Flow Rate FiO2 07/21/16 12:00 97.2 62 18 115/63 98 07/21/16 09:00 105/59 07/21/16 08:00 96.1 61 19 105/59 95 07/21/16 04:00 98.2 92 20 127/73 95 Room Air 07/20/16 22:50 97.3 67 18 146/76 94 Room Air 07/20/16 22:41 98.0 68 14 175/90 98 Room Air 07/20/16 22:39 175/90 07/20/16 21:17 Room Air 07/20/16 21:16 62 15 98 Room Air 07/20/16 21:16 62 15 Room Air 07/20/16 19:56 98.0 62 15 160/83 98 Room Air 07/20/16 17:41 98.0 67 11 125/70 96 Room Air 07/20/16 15:41 98.0 66 15 111/61 95 Room Air Intake and Output 07/20/16 07/21/16 18:59 06:59 Intake Total 120 ml Balance 120 ml Intake Oral 120 ml # Bowel Movements 2 Laboratory Tests 07/21/16 07:30: White Blood Count 5.0, Red Blood Count 3.84L, Hemoglobin 12.0L, Hematocrit 35.2L , Mean Corpuscular Volume 92, Mean Corpuscular Hemoglobin 31.2H, Mean Corpuscular Hemoglobin Concent 34.0, Red Cell Distribution Width 12.4, Platelet Count 151, Mean Platelet Volume 9.4, Neutrophils (%) (Auto) 78.4H, Lymphocytes ( %) (Auto) 17.4L, Monocytes (%) (Auto) 3.5, Eosinophils (%) (Auto) 0.3, Basophils (%) (Auto) 0.5, Sodium Level 143, Potassium Level 4.4, Chloride Level 101, Carbon Dioxide Level 27, Anion Gap 15, Blood Urea Nitrogen 18, Creatinine 0.8, Estimat Glomerular Filtration Rate > 60, Glucose Level 205H, Calcium Level 9.2, Total Bilirubin 0.4, Aspartate Amino Transf (AST/SGOT) 15, Alanine Aminotransferase (ALT/SGPT) 9, Alkaline Phosphatase 48, Total Protein 6.4L, Albumin 3.8, Globulin 2.6, Albumin/Globulin Ratio 1.4 Height (Feet): 5 Height (Inches): 7.00 Weight (Pounds): 140 General Appearance: lethargic EENT: normal ENT inspection Neck: normal alignment Cardiovascular: normal peripheral pulses, normal rate, regular rhythm Respiratory/Chest: chest wall non-tender, lungs clear, normal breath sounds Abdomen: normal bowel sounds, non tender, soft Extremities: normal inspection Edema: no edema noted Arm (L), no edema noted Arm (R), no edema noted Leg (L), no edema noted Leg (R), no edema noted Pedal (L), no edema noted Pedal (R), no edema noted Generalized Neurologic: motor weakness Skin: normal pigmentation, warm/dry FABIO GASTELUM Jul 21, 2016 14:56
[2016-07-21 16:00] VITALS: BP 100/61
--- NOTE | 2016-07-21 17:29 | Pulmonology Progress Note ---
Assessment/Plan Problems: (1) Upper respiratory infection (2) COPD with acute exacerbation (3) Seizure disorder (4) Episode of generalized weakness (5) HTN (hypertension) Assessment/Plan respiratory treatment IV antibiotics check sputum tolerating diet improving already dc planning in 1/2 days Subjective ROS Limited/Unobtainable: No Constitutional: Reports: no symptoms HEENT: Repors: no symptoms Respiratory: Reports: no symptoms Allergies: Coded Allergies: No Known Allergies (Unverified , 01/05/13) Objective Last 24 Hour Vital Signs Date Time Temp Pulse Resp B/P Pulse Ox O2 Delivery O2 Flow Rate FiO2 07/21/16 12:00 97.2 62 18 115/63 98 07/21/16 09:00 105/59 07/21/16 08:00 96.1 61 19 105/59 95 07/21/16 04:00 98.2 92 20 127/73 95 Room Air 07/20/16 22:50 97.3 67 18 146/76 94 Room Air 07/20/16 22:41 98.0 68 14 175/90 98 Room Air 07/20/16 22:39 175/90 07/20/16 21:17 Room Air 07/20/16 21:16 62 15 98 Room Air 07/20/16 21:16 62 15 Room Air 07/20/16 19:56 98.0 62 15 160/83 98 Room Air 07/20/16 17:41 98.0 67 11 125/70 96 Room Air Intake and Output 07/20/16 07/21/16 18:59 06:59 Intake Total 120 ml Balance 120 ml Intake Oral 120 ml # Bowel Movements 2 HEENT: normocephalic, atraumatic Respiratory/Chest: chest wall non-tender, lungs clear Cardiovascular: normal peripheral pulses, normal rate Abdomen: normal bowel sounds, soft, non tender Extremities: no cyanosis 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 Microbiology Date/Time Source Procedure Growth Status 07/20/16 14:15 Nasal Nares Influenza Types A,B Antigen (LIZA) - Final Complete Laboratory Tests 07/21/16 07:30: White Blood Count 5.0, Red Blood Count 3.84L, Hemoglobin 12.0L, Hematocrit 35.2L , Mean Corpuscular Volume 92, Mean Corpuscular Hemoglobin 31.2H, Mean Corpuscular Hemoglobin Concent 34.0, Red Cell Distribution Width 12.4, Platelet Count 151, Mean Platelet Volume 9.4, Neutrophils (%) (Auto) 78.4H, Lymphocytes ( %) (Auto) 17.4L, Monocytes (%) (Auto) 3.5, Eosinophils (%) (Auto) 0.3, Basophils (%) (Auto) 0.5, Sodium Level 143, Potassium Level 4.4, Chloride Level 101, Carbon Dioxide Level 27, Anion Gap 15, Blood Urea Nitrogen 18, Creatinine 0.8, Estimat Glomerular Filtration Rate > 60, Glucose Level 205H, Calcium Level 9.2, Total Bilirubin 0.4, Aspartate Amino Transf (AST/SGOT) 15, Alanine Aminotransferase (ALT/SGPT) 9, Alkaline Phosphatase 48, Total Protein 6.4L, Albumin 3.8, Globulin 2.6, Albumin/Globulin Ratio 1.4 Current Medications Medications (Trade) Dose Ordered Sig/Kun Route PRN Reason Start Time Stop Time Status Last Admin Dose Admin Acetaminophen (Tylenol) 650 mg Q4H PRN ORAL fever 07/20/16 15:00 08/19/16 14:59 Albuterol/ Ipratropium (DuoNeb 0.5-3(2.5)mg/3ml) 3 ml EVERY 4 HOURS PRN HHN dyspnea 07/20/16 15:00 07/25/16 14:59 Atorvastatin Calcium (Lipitor) 80 mg BEDTIME ORAL 07/20/16 21:00 08/19/16 20:59 07/20/16 21:00 Buspirone HCl (Buspar) 7.5 mg BID ORAL 07/21/16 09:00 08/20/16 08:59 07/21/16 09:18 Clonidine HCl (Catapres) 0.1 mg EVERY 4 HOURS PRN ORAL sbp more than 160 07/20/16 15:00 08/19/16 14:59 Dextrose (Dextrose 50%) STAT PRN IV Hypoglycemia 07/20/16 15:00 08/19/16 14:59 Divalproex Sodium (Depakote ER) 500 mg EVERY 12 HOURS ORAL 07/21/16 09:00 08/20/16 08:59 07/21/16 09:16 Doxycycline Monohydrate (Vibramycin) 100 mg Q12HR ORAL 07/20/16 21:00 07/27/16 20:59 07/21/16 09:16 Finasteride (Proscar) 5 mg DAILY ORAL 07/21/16 09:00 08/20/16 08:59 07/21/16 09:16 Heparin Sodium (Porcine) (Heparin 5000 units/ml) 5,000 units EVERY 12 HOURS SUBQ 07/20/16 21:00 08/19/16 20:59 07/20/16 21:00 Insulin Aspart (NovoLOG) BEFORE MEALS AND HS SUBQ 07/21/16 06:30 08/20/16 06:29 07/21/16 16:44 Lamotrigine (LaMICtal) 25 mg BID ORAL 07/21/16 09:00 08/20/16 08:59 07/21/16 09:16 Lisinopril (Prinivil) 20 mg DAILY ORAL 07/21/16 09:00 08/20/16 08:59 Lorazepam (Ativan 2mg/ml 1ml) 0.5 mg Q4H PRN IV For Anxiety 07/20/16 15:00 07/27/16 14:59 Methylprednisolone Sodium Succinate (Solu-MEDROL) 60 mg EVERY 6 HOURS IV 07/21/16 00:00 08/20/16 00:00 07/21/16 13:44 Morphine Sulfate (Morphine Sulfate) 2 mg EVERY 4 HOURS PRN IVP severe pain 7-10 07/20/16 15:00 07/27/16 14:59 Nitroglycerin (Ntg) 0.4 mg Q5M X 3 DOSES PRN SL Prn Chest Pain 07/20/16 15:00 08/19/16 14:59 Olanzapine (ZyPREXA) 2.5 mg Q12HR ORAL 07/21/16 00:00 08/20/16 00:00 07/21/16 10:33 Ondansetron HCl (Zofran) 4 mg Q6H PRN IVP Nausea & Vomiting 07/20/16 15:00 08/19/16 14:59 Promethazine HCl/ Codeine (Phenergan with Codeine) 5 ml EVERY 6 HOURS PRN ORAL cough 07/20/16 15:00 08/19/16 14:59 Tamsulosin HCl (Flomax) 0.4 mg BEDTIME ORAL 07/20/16 21:00 08/19/16 20:59 07/20/16 21:00 Temazepam (Restoril) 15 mg HSPRN PRN ORAL Insomnia 07/20/16 15:00 07/27/16 14:59 Theophylline (John-Dur) 100 mg EVERY 12 HOURS ORAL 07/20/16 21:00 08/19/16 20:59 07/21/16 09:16 Ziprasidone (Geodon) 40 mg DAILY ORAL 07/21/16 09:00 08/20/16 08:59 07/21/16 10:33 MICHELLE POLLARD Jul 21, 2016 17:29
[2016-07-21 20:00] VITALS: BP_SYST 148; BP_SYST 97; BP_DIAS 58; BP_DIAS 78
--- NOTE | 2016-07-21 20:19 | Cardiology Report ---
APPROVED REPORT EKG Measurement Heart [id number] Sinus bradycardia Right bundle branch block Abnormal ECG
[2016-07-21] MEDS: Tamsulosin 0.4mg cap ORAL SCH (20:30)
[2016-07-21] MEDS: Atorvastatin 80mg tab ORAL SCH (20:30)
[2016-07-22] VITALS: BP 124/72
[2016-07-22] MEDS: Solu-MEDROL 125mg Inj IV SCH ×4 (00:23→17:44)
[2016-07-22 04:00] VITALS: BP 134/71
[2016-07-22] MEDS: LORazepam Inj 2mg/ml 1ml IV PRN (04:57)
[2016-07-22] MEDS: NovoLOG Insulin Flexpen SUBQ SCH ×4 (06:56→22:05)
[2016-07-22 07:18] LABS: BASOPHILS % (AUTO) 0.3 % (0.0-2.0); LYMPHOCYTES % (AUTO) 10.6 % (20.0-45.0); MEAN CORPUSCULAR HEMOGLOBIN 30.4 PG (27.0-31.0); MEAN CORPUSCULAR HGB CONC 33.2 G/DL (32.0-36.0); MEAN CORPUSCULAR VOLUME 92 FL (80-99); MEAN PLATELET VOLUME 9.2 FL (6.5-10.1); MONOCYTES % (AUTO) 7.4 % (1.0-10.0); NEUTROPHILS % (AUTO) 81.8 % (45.0-75.0); PLATELET COUNT 168 K/UL (150-450); RED BLOOD COUNT 3.98 M/UL (4.70-6.10); RED CELL DISTRIBUTION WIDTH 12.3 % (11.6-14.8); WHITE BLOOD COUNT 11.7 K/UL (4.8-10.8)
[2016-07-22 07:27] LABS: ANION GAP 14 (5-15); CALCIUM 9.2 mg/dL (8.6-10.2); CARBON DIOXIDE 27 mEQ/L (20-30); CHLORIDE 102 mEQ/L (98-107); CREATININE 0.9 mg/dL (0.7-1.2); GLOMERULAR FILTRATION RATE > 60 mL/min (>60); HEMOLYSIS 14; POTASSIUM 4.5 mEQ/L (3.4-4.9); SODIUM 143 mEQ/L (135-145)
[2016-07-22 08:00] VITALS: BP 120/59
[2016-07-22] MEDS: Depakote ER 500mg tab ORAL SCH ×2 (08:34→22:02)
[2016-07-22] MEDS: OLANZapine 2.5mg tab ORAL SCH ×2 (08:34→22:02)
[2016-07-22] MEDS: Theophylline ER 100mg ORAL SCH ×2 (08:34→22:02)
[2016-07-22] MEDS: BusPIRone 5mg Tab ORAL SCH ×2 (08:34→17:45)
[2016-07-22] MEDS: Ziprasidone 20mg cap ORAL SCH (08:34)
[2016-07-22] MEDS: Lisinopril 20mg tab ORAL SCH (08:38)
[2016-07-22] MEDS: Heparin 5000 units/ml inj SUBQ SCH ×2 (08:39→22:05)
--- NOTE | 2016-07-22 08:47 | General Progress Note ---
Assessment/Plan Problem List: (1) Pneumonia ICD Codes: J18.9 - Pneumonia, unspecified organism SNOMED: 213434876 (2) Arterial ischemic stroke, MCA (middle cerebral artery), right, chronic ICD Codes: Z86.73 - Arterial ischemic stroke, MCA (middle cerebral artery), right, chronic SNOMED: 359389460 (3) Sepsis ICD Codes: A41.9 - Sepsis, unspecified organism SNOMED: 01620919 (4) Encephalopathy ICD Codes: G93.40 - Encephalopathy, unspecified SNOMED: 93904181 (5) Episode of generalized weakness ICD Codes: R53.1 - Weakness SNOMED: 95078059 (6) Seizure disorder ICD Codes: G40.909 - Seizure disorder SNOMED: 978527104 (7) HTN (hypertension) ICD Codes: I10 - Hypertension SNOMED: 69330478 Qualifiers: Qualified Codes: I10 - Essential (primary) hypertension (8) COPD (chronic obstructive pulmonary disease) ICD Codes: J44.9 - Chronic obstructive pulmonary disease, unspecified SNOMED: 66839337 Qualifiers: Qualified Codes: J44.9 - Chronic obstructive pulmonary disease, unspecified Status: stable, progressing, tolerating diet Assessment/Plan o2 pulm tx ot pt diet abx cbc bmp am dc if clear by id and pulm Subjective Constitutional: Reports: weakness Allergies: Coded Allergies: No Known Allergies (Unverified , 01/05/13) All Systems: reviewed and negative except above Subjective sleepy calm Objective Last 24 Hour Vital Signs Date Time Temp Pulse Resp B/P Pulse Ox O2 Delivery O2 Flow Rate FiO2 07/22/16 08:38 120/59 07/22/16 04:00 97.8 68 18 134/71 99 Room Air 07/22/16 00:00 97.5 72 17 124/72 97 Room Air 07/21/16 20:00 98.1 70 16 148/78 96 Room Air 07/21/16 16:00 97.5 70 19 100/61 96 07/21/16 12:00 97.2 62 18 115/63 98 07/21/16 09:00 105/59 Intake and Output 07/21/16 07/22/16 19:00 07:00 Intake Total 300 ml 540 ml Balance 300 ml 540 ml Intake Oral 300 ml 540 ml # Voids 2 Laboratory Tests 07/22/16 05:25: White Blood Count 11.7#H, Red Blood Count 3.98L, Hemoglobin 12.1L, Hematocrit 36.5L, Mean Corpuscular Volume 92, Mean Corpuscular Hemoglobin 30.4, Mean Corpuscular Hemoglobin Concent 33.2, Red Cell Distribution Width 12.3, Platelet Count 168, Mean Platelet Volume 9.2, Neutrophils (%) (Auto) 81.8H, Lymphocytes ( %) (Auto) 10.6L, Monocytes (%) (Auto) 7.4, Eosinophils (%) (Auto) 0.0, Basophils (%) (Auto) 0.3, Sodium Level 143, Potassium Level 4.5, Chloride Level 102, Carbon Dioxide Level 27, Anion Gap 14, Blood Urea Nitrogen 23, Creatinine 0.9, Estimat Glomerular Filtration Rate > 60, Glucose Level 290H, Calcium Level 9.2 Height (Feet): 5 Height (Inches): 7.00 Weight (Pounds): 140 General Appearance: lethargic EENT: normal ENT inspection Neck: normal alignment Cardiovascular: normal peripheral pulses, normal rate, regular rhythm Respiratory/Chest: chest wall non-tender, lungs clear, normal breath sounds Abdomen: normal bowel sounds, non tender, soft Extremities: normal inspection Edema: no edema noted Arm (L), no edema noted Arm (R), no edema noted Leg (L), no edema noted Leg (R), no edema noted Pedal (L), no edema noted Pedal (R), no edema noted Generalized Neurologic: motor weakness Skin: normal pigmentation, warm/dry FABIO GASTELUM Jul 22, 2016 08:47
[2016-07-22 12:00] VITALS: BP 119/55
--- NOTE | 2016-07-22 15:05 | Pulmonology Progress Note ---
Assessment/Plan Problems: (1) Upper respiratory infection (2) COPD with acute exacerbation (3) Seizure disorder (4) Episode of generalized weakness (5) HTN (hypertension) Assessment/Plan afebrile respiratory treatment IV antibiotics check sputum, not available yet tolerating diet improving already dc planning in 1/2 days Subjective Constitutional: Reports: no symptoms HEENT: Repors: no symptoms Respiratory: Reports: productive cough, sputum Cardiovascular: Reports: no symptoms Genitourinary: Reports: no symptoms Neurologic: Reports: no symptoms Allergies: Coded Allergies: No Known Allergies (Unverified , 01/05/13) Objective Last 24 Hour Vital Signs Date Time Temp Pulse Resp B/P Pulse Ox O2 Delivery O2 Flow Rate FiO2 07/22/16 12:00 96.4 54 20 119/55 98 Room Air 07/22/16 08:38 120/59 07/22/16 08:00 97.0 69 19 120/59 97 Room Air 07/22/16 04:00 97.8 68 18 134/71 99 Room Air 07/22/16 00:00 97.5 72 17 124/72 97 Room Air 07/21/16 20:00 98.1 70 16 148/78 96 Room Air 07/21/16 16:00 97.5 70 19 100/61 96 Intake and Output 07/21/16 07/22/16 19:00 07:00 Intake Total 300 ml 540 ml Balance 300 ml 540 ml Intake Oral 300 ml 540 ml # Voids 2 General Appearance: WD/WN HEENT: normocephalic, atraumatic Respiratory/Chest: chest wall non-tender, lungs clear Cardiovascular: normal peripheral pulses, normal rate Abdomen: normal bowel sounds, soft, non tender Microbiology Date/Time Source Procedure Growth Status 07/20/16 14:15 Blood Blood Culture - Preliminary NO GROWTH AFTER 24 HOURS Resulted 07/20/16 14:00 Blood Blood Culture - Preliminary NO GROWTH AFTER 24 HOURS Resulted 07/20/16 14:20 Nasal Nares MRSA Culture - Final NO METHICILLIN RESISTANT STAPH AUREUS... Complete 07/20/16 14:15 Nasal Nares Influenza Types A,B Antigen (LIZA) - Final Complete 07/20/16 14:20 Rectum VRE Culture - Final NO VANCOMYCIN RESISTANT ENTEROCOCCUS ... Complete Laboratory Tests 07/22/16 05:25: White Blood Count 11.7#H, Red Blood Count 3.98L, Hemoglobin 12.1L, Hematocrit 36.5L, Mean Corpuscular Volume 92, Mean Corpuscular Hemoglobin 30.4, Mean Corpuscular Hemoglobin Concent 33.2, Red Cell Distribution Width 12.3, Platelet Count 168, Mean Platelet Volume 9.2, Neutrophils (%) (Auto) 81.8H, Lymphocytes ( %) (Auto) 10.6L, Monocytes (%) (Auto) 7.4, Eosinophils (%) (Auto) 0.0, Basophils (%) (Auto) 0.3, Sodium Level 143, Potassium Level 4.5, Chloride Level 102, Carbon Dioxide Level 27, Anion Gap 14, Blood Urea Nitrogen 23, Creatinine 0.9, Estimat Glomerular Filtration Rate > 60, Glucose Level 290H, Calcium Level 9.2 Current Medications Medications (Trade) Dose Ordered Sig/Kun Route PRN Reason Start Time Stop Time Status Last Admin Dose Admin Acetaminophen (Tylenol) 650 mg Q4H PRN ORAL fever 07/20/16 15:00 08/19/16 14:59 Albuterol/ Ipratropium (DuoNeb 0.5-3(2.5)mg/3ml) 3 ml EVERY 4 HOURS PRN HHN dyspnea 07/20/16 15:00 07/25/16 14:59 Atorvastatin Calcium (Lipitor) 80 mg BEDTIME ORAL 07/20/16 21:00 08/19/16 20:59 07/21/16 20:30 Buspirone HCl (Buspar) 7.5 mg BID ORAL 07/21/16 09:00 08/20/16 08:59 07/22/16 08:34 Clonidine HCl (Catapres) 0.1 mg EVERY 4 HOURS PRN ORAL sbp more than 160 07/20/16 15:00 08/19/16 14:59 Dextrose (Dextrose 50%) STAT PRN IV Hypoglycemia 07/20/16 15:00 08/19/16 14:59 Divalproex Sodium (Depakote ER) 500 mg EVERY 12 HOURS ORAL 07/21/16 09:00 08/20/16 08:59 07/22/16 08:34 Doxycycline Monohydrate (Vibramycin) 100 mg Q12HR ORAL 07/20/16 21:00 07/27/16 20:59 07/22/16 08:38 Finasteride (Proscar) 5 mg DAILY ORAL 07/21/16 09:00 08/20/16 08:59 07/22/16 08:34 Heparin Sodium (Porcine) (Heparin 5000 units/ml) 5,000 units EVERY 12 HOURS SUBQ 07/20/16 21:00 08/19/16 20:59 07/22/16 08:39 Insulin Aspart (NovoLOG) BEFORE MEALS AND HS SUBQ 07/21/16 06:30 08/20/16 06:29 07/22/16 12:22 Lamotrigine (LaMICtal) 25 mg BID ORAL 07/21/16 09:00 08/20/16 08:59 07/22/16 08:34 Lisinopril (Prinivil) 20 mg DAILY ORAL 07/21/16 09:00 08/20/16 08:59 07/22/16 08:38 Lorazepam (Ativan 2mg/ml 1ml) 0.5 mg Q4H PRN IV For Anxiety 07/20/16 15:00 07/27/16 14:59 07/22/16 04:57 Methylprednisolone Sodium Succinate (Solu-MEDROL) 60 mg EVERY 6 HOURS IV 07/21/16 00:00 08/20/16 00:00 07/22/16 12:20 Morphine Sulfate (Morphine Sulfate) 2 mg EVERY 4 HOURS PRN IVP severe pain 7-10 07/20/16 15:00 07/27/16 14:59 Nitroglycerin (Ntg) 0.4 mg Q5M X 3 DOSES PRN SL Prn Chest Pain 07/20/16 15:00 08/19/16 14:59 Olanzapine (ZyPREXA) 2.5 mg Q12HR ORAL 07/21/16 00:00 08/20/16 00:00 07/22/16 08:34 Ondansetron HCl (Zofran) 4 mg Q6H PRN IVP Nausea & Vomiting 07/20/16 15:00 08/19/16 14:59 Promethazine HCl/ Codeine (Phenergan with Codeine) 5 ml EVERY 6 HOURS PRN ORAL cough 07/20/16 15:00 08/19/16 14:59 Tamsulosin HCl (Flomax) 0.4 mg BEDTIME ORAL 07/20/16 21:00 08/19/16 20:59 07/21/16 20:30 Temazepam (Restoril) 15 mg HSPRN PRN ORAL Insomnia 07/20/16 15:00 07/27/16 14:59 07/22/16 01:13 Theophylline (John-Dur) 100 mg EVERY 12 HOURS ORAL 07/20/16 21:00 08/19/16 20:59 07/22/16 08:34 Ziprasidone (Geodon) 40 mg DAILY ORAL 07/21/16 09:00 08/20/16 08:59 07/22/16 08:34 MICHELLE POLLARD Jul 22, 2016 15:05
[2016-07-22 16:00] VITALS: BP 102/51
[2016-07-22] MEDS ORDERED: D5NS 1000ml IV ONE (17:39)
--- NOTE | 2016-07-22 18:24 | Infectious Diseases Prog Note ---
Assessment/Plan Problems: (1) Upper respiratory infection Assessment & Plan: continue doxycycline for 7 days, influenza screening is negative (2) COPD (chronic obstructive pulmonary disease) Assessment & Plan: with acute exacerbation, continue nebulizer treatment, steroids, and doxycycline (3) DM (diabetes mellitus) Assessment & Plan: recommend tight glycemic control to keep blood glucose between 80-120 (4) HTN (hypertension) Assessment & Plan: continue meds to keep systolic less than 140 Subjective ROS Limited/Unobtainable: Yes Allergies: Coded Allergies: No Known Allergies (Unverified , 01/05/13) Subjective she is nonverbal, respond to questions by nodding her head. afebrile. Objective Vital Signs Last 24 Hour Vital Signs Date Time Temp Pulse Resp B/P Pulse Ox O2 Delivery O2 Flow Rate FiO2 07/22/16 16:00 96.6 65 18 102/51 96 Room Air 07/22/16 12:00 96.4 54 20 119/55 98 Room Air 07/22/16 08:38 120/59 07/22/16 08:00 97.0 69 19 120/59 97 Room Air 07/22/16 04:00 97.8 68 18 134/71 99 Room Air 07/22/16 00:00 97.5 72 17 124/72 97 Room Air 07/21/16 20:00 98.1 70 16 148/78 96 Room Air Height (Feet): 5 Height (Inches): 7.00 Weight (Pounds): 140 General Appearance: WD/WN, no acute distress HEENT: normocephalic, atraumatic, anicteric, mucous membranes moist Respiratory/Chest: normal breath sounds, no respiratory distress, no accessory muscle use, decreased breath sounds, crackles/rales Cardiovascular: normal peripheral pulses, normal rate, regular rhythm, no gallop/murmur, no JVD Abdomen: normal bowel sounds, soft, non tender, no organomegaly, non distended , no mass, no scars Extremities: no cyanosis, no clubbing Skin: no rash, no lesions Microbiology Date/Time Source Procedure Growth Status 07/20/16 14:15 Blood Blood Culture - Preliminary NO GROWTH AFTER 24 HOURS Resulted 07/20/16 14:00 Blood Blood Culture - Preliminary NO GROWTH AFTER 24 HOURS Resulted 07/20/16 14:20 Nasal Nares MRSA Culture - Final NO METHICILLIN RESISTANT STAPH AUREUS... Complete 07/20/16 14:15 Nasal Nares Influenza Types A,B Antigen (LIZA) - Final Complete 07/20/16 14:20 Rectum VRE Culture - Final NO VANCOMYCIN RESISTANT ENTEROCOCCUS ... Complete Laboratory Tests Test 07/22/16 05:25 White Blood Count 11.7 K/UL (4.8-10.8) #H Red Blood Count 3.98 M/UL (4.70-6.10) L Hemoglobin 12.1 G/DL (14.2-18.0) L Hematocrit 36.5 % (42.0-52.0) L Mean Corpuscular Volume 92 FL (80-99) Mean Corpuscular Hemoglobin 30.4 PG (27.0-31.0) Mean Corpuscular Hemoglobin Concent 33.2 G/DL (32.0-36.0) Red Cell Distribution Width 12.3 % (11.6-14.8) Platelet Count 168 K/UL (150-450) Mean Platelet Volume 9.2 FL (6.5-10.1) Neutrophils (%) (Auto) 81.8 % (45.0-75.0) H Lymphocytes (%) (Auto) 10.6 % (20.0-45.0) L Monocytes (%) (Auto) 7.4 % (1.0-10.0) Eosinophils (%) (Auto) 0.0 % (0.0-3.0) Basophils (%) (Auto) 0.3 % (0.0-2.0) Sodium Level 143 mEQ/L (135-145) Potassium Level 4.5 mEQ/L (3.4-4.9) Chloride Level 102 mEQ/L (98-107) Carbon Dioxide Level 27 mEQ/L (20-30) Anion Gap 14 (5-15) Blood Urea Nitrogen 23 mg/dL (7-23) Creatinine 0.9 mg/dL (0.7-1.2) Estimat Glomerular Filtration Rate > 60 mL/min (>60) Glucose Level 290 mg/dL (74-106) H Calcium Level 9.2 mg/dL (8.6-10.2) Current Medications Medications (Trade) Dose Ordered Sig/Kun Route PRN Reason Start Time Stop Time Status Last Admin Dose Admin Acetaminophen (Tylenol) 650 mg Q4H PRN ORAL fever 07/20/16 15:00 08/19/16 14:59 Albuterol/ Ipratropium (DuoNeb 0.5-3(2.5)mg/3ml) 3 ml EVERY 4 HOURS PRN HHN dyspnea 07/20/16 15:00 07/25/16 14:59 Atorvastatin Calcium (Lipitor) 80 mg BEDTIME ORAL 07/20/16 21:00 08/19/16 20:59 07/21/16 20:30 Buspirone HCl (Buspar) 7.5 mg BID ORAL 07/21/16 09:00 08/20/16 08:59 07/22/16 17:45 Clonidine HCl (Catapres) 0.1 mg EVERY 4 HOURS PRN ORAL sbp more than 160 07/20/16 15:00 08/19/16 14:59 Dextrose (Dextrose 50%) STAT PRN IV Hypoglycemia 07/20/16 15:00 08/19/16 14:59 Divalproex Sodium (Depakote ER) 500 mg EVERY 12 HOURS ORAL 07/21/16 09:00 08/20/16 08:59 07/22/16 08:34 Doxycycline Monohydrate (Vibramycin) 100 mg Q12HR ORAL 07/20/16 21:00 07/27/16 20:59 07/22/16 08:38 Finasteride (Proscar) 5 mg DAILY ORAL 07/21/16 09:00 08/20/16 08:59 07/22/16 08:34 Heparin Sodium (Porcine) (Heparin 5000 units/ml) 5,000 units EVERY 12 HOURS SUBQ 07/20/16 21:00 08/19/16 20:59 07/22/16 08:39 Insulin Aspart (NovoLOG) BEFORE MEALS AND HS SUBQ 07/21/16 06:30 08/20/16 06:29 07/22/16 16:41 Lamotrigine (LaMICtal) 25 mg BID ORAL 07/21/16 09:00 08/20/16 08:59 07/22/16 17:45 Lisinopril (Prinivil) 20 mg DAILY ORAL 07/21/16 09:00 08/20/16 08:59 07/22/16 08:38 Lorazepam (Ativan 2mg/ml 1ml) 0.5 mg Q4H PRN IV For Anxiety 07/20/16 15:00 07/27/16 14:59 07/22/16 04:57 Methylprednisolone Sodium Succinate (Solu-MEDROL) 60 mg EVERY 6 HOURS IV 07/21/16 00:00 08/20/16 00:00 07/22/16 17:44 Morphine Sulfate (Morphine Sulfate) 2 mg EVERY 4 HOURS PRN IVP severe pain 7-10 07/20/16 15:00 07/27/16 14:59 Nitroglycerin (Ntg) 0.4 mg Q5M X 3 DOSES PRN SL Prn Chest Pain 07/20/16 15:00 08/19/16 14:59 Olanzapine (ZyPREXA) 2.5 mg Q12HR ORAL 07/21/16 00:00 08/20/16 00:00 07/22/16 08:34 Ondansetron HCl (Zofran) 4 mg Q6H PRN IVP Nausea & Vomiting 07/20/16 15:00 08/19/16 14:59 Promethazine HCl/ Codeine (Phenergan with Codeine) 5 ml EVERY 6 HOURS PRN ORAL cough 07/20/16 15:00 08/19/16 14:59 Tamsulosin HCl (Flomax) 0.4 mg BEDTIME ORAL 07/20/16 21:00 08/19/16 20:59 07/21/16 20:30 Temazepam (Restoril) 15 mg HSPRN PRN ORAL Insomnia 07/20/16 15:00 07/27/16 14:59 07/22/16 01:13 Theophylline (John-Dur) 100 mg EVERY 12 HOURS ORAL 07/20/16 21:00 08/19/16 20:59 07/22/16 08:34 Ziprasidone (Geodon) 40 mg DAILY ORAL 07/21/16 09:00 08/20/16 08:59 07/22/16 08:34 Marcus Mobley M.D. Jul 22, 2016 18:24
[2016-07-22 19:00] VITALS: BP 118/58
--- NOTE | 2016-07-22 20:18 | Consultation ---
DATE OF CONSULTATION: 07/21/2016 POOR AUDIO QUALITY PSYCHOTHERAPY CONSULTATION PROGRESS NOTE CONSULTING PHYSICIAN: Beulah Villavicencio M.D. REFERRING PHYSICIAN: Nura Carter D.O. HISTORY OF PRESENT ILLNESS: The patient is a 65-year-old male. The patient has the history of paranoid schizophrenia. The patient is recently admitted to the hospital for pneumonia. The patient is confused, disorganized, altered mental status, . Of note, the patient has auditory and visual hallucinations. No suicidal or homicidal thoughts of ideation. The patient is lethargic. She has altered mental status. The patient PAST MEDICAL HISTORY: Includes a history of encephalopathy, CVA, and COPD. ALLERGIES: The patient has no known drug allergies. SUBSTANCE ABUSE HISTORY: There is no indication of history of alcohol use, illicit substance use, or smoking cigarettes for this patient. PSYCHIATRIC HISTORY: There is no indicated history of paranoid schizophrenia. No prior psychiatric hospitalizations in the past. SOCIAL HISTORY: The patient is 65-year-old male , financially sustained through Medicare. MENTAL STATUS EXAMINATION: The patient is alert and oriented to person and place. His mood is depressed. Affect is . Thought process, disorganized. The patient has poor attention and concentration. Poor insight, judgment, and impulse control. This clinician assessed the patient. Provided the patient with supportive psychotherapy, reality orientation, and coping skills. Encouraging the patient to . DIAGNOSES: AXIS I: 1. Altered mental status. 2. Paranoid schizophrenia. AXIS II: Deferred. AXIS III: Per History and Physical. AXIS IV: Psychosocial stressors are moderate. PLAN: We will continue to monitor the patient . Beulah Villavicencio PsyD. DR: Tomasa JOB#: [id number] CC:
[2016-07-22] MEDS: Atorvastatin 80mg tab ORAL SCH (22:02)
[2016-07-22] MEDS: Tamsulosin 0.4mg cap ORAL SCH (22:02)
[2016-07-23 00:33] VITALS: BP 126/59
--- NOTE | 2016-07-23 02:58 | Progress Note ---
DATE: 07/22/2016 PSYCHOTHERAPY CONSULTATION PROGRESS NOTE SUBJECTIVE: The patient is a 65-year-old male, very disorganized, confused, altered in mental status, requires continued hospitalization . This clinician assessed this patient and provided the patient with supportive psychotherapy, reality orientation, and coping skills. Encouraging the patient to participate in his treatment. Continue with medication management and behavioral management. This clinician has reviewed the patient's chart. Discussed the treatment with the nursing staff. Beulah Villavicencio PsyD. DR: ALECIA JOB#: [id number] CC:
[2016-07-23 04:52] VITALS: BP 100/52
[2016-07-23] MEDS: NovoLOG Insulin Flexpen SUBQ SCH ×4 (05:50→21:14)
[2016-07-23] MEDS: Solu-MEDROL 125mg Inj IV SCH ×2 (05:50)
[2016-07-23 08:00] VITALS: BP 147/86
[2016-07-23 08:21] LABS: ANION GAP 15 (5-15); CALCIUM 9.5 mg/dL (8.6-10.2); CARBON DIOXIDE 27 mEQ/L (20-30); CHLORIDE 101 mEQ/L (98-107); CREATININE 0.9 mg/dL (0.7-1.2); GLOMERULAR FILTRATION RATE > 60 mL/min (>60); HEMOLYSIS 6; POTASSIUM 4.4 mEQ/L (3.4-4.9); SODIUM 143 mEQ/L (135-145)
[2016-07-23 08:37] LABS: BASOPHILS % (AUTO) 0.2 % (0.0-2.0); LYMPHOCYTES % (AUTO) 14.1 % (20.0-45.0); MEAN CORPUSCULAR HEMOGLOBIN 30.4 PG (27.0-31.0); MEAN CORPUSCULAR VOLUME 92 FL (80-99); MEAN PLATELET VOLUME 8.4 FL (6.5-10.1); MONOCYTES % (AUTO) 3.8 % (1.0-10.0); NEUTROPHILS % (AUTO) 81.8 % (45.0-75.0); PLATELET COUNT 196 K/UL (150-450); RED BLOOD COUNT 4.31 M/UL (4.70-6.10); RED CELL DISTRIBUTION WIDTH 12.3 % (11.6-14.8); WHITE BLOOD COUNT 10.5 K/UL (4.8-10.8)
[2016-07-23] MEDS: BusPIRone 5mg Tab ORAL SCH ×2 (10:05→16:53)
[2016-07-23] MEDS: Depakote ER 500mg tab ORAL SCH ×2 (10:06→21:10)
[2016-07-23] MEDS: Ziprasidone 20mg cap ORAL SCH (10:07)
[2016-07-23] MEDS: OLANZapine 2.5mg tab ORAL SCH ×2 (10:08→21:09)
[2016-07-23] MEDS: Lisinopril 20mg tab ORAL SCH (10:08)
[2016-07-23] MEDS: Heparin 5000 units/ml inj SUBQ SCH ×2 (10:10→21:15)
--- NOTE | 2016-07-23 10:58 | Pulmonology Progress Note ---
Assessment/Plan Problems: (1) Upper respiratory infection (2) COPD with acute exacerbation (3) Seizure disorder (4) Episode of generalized weakness (5) HTN (hypertension) Assessment/Plan afebrile respiratory treatment IV antibiotics check sputum, not available yet tolerating diet improving already decrease solumedrol to qd no cultures yes VRE rectum dc planning in 1/2 days Subjective ROS Limited/Unobtainable: No Interval Events: didn't sleep last nig, sleepy now Constitutional: Reports: no symptoms Allergies: Coded Allergies: No Known Allergies (Unverified , 01/05/13) Objective Last 24 Hour Vital Signs Date Time Temp Pulse Resp B/P Pulse Ox O2 Delivery O2 Flow Rate FiO2 07/23/16 10:08 147/86 07/23/16 08:00 97.0 68 18 147/86 97 Room Air 07/23/16 04:52 97.2 72 19 100/52 97 Room Air 07/23/16 00:33 97.2 66 19 126/59 98 Room Air 07/22/16 19:00 97.1 70 18 118/58 97 Room Air 07/22/16 16:00 96.6 65 18 102/51 96 Room Air 07/22/16 12:00 96.4 54 20 119/55 98 Room Air Intake and Output 07/22/16 07/23/16 19:00 07:00 Intake Total 240 ml 300 ml Balance 240 ml 300 ml Intake Oral 240 ml 300 ml # Voids 2 4 # Bowel Movements 1 2 General Appearance: WD/WN HEENT: normocephalic, atraumatic Respiratory/Chest: chest wall non-tender, lungs clear Cardiovascular: normal peripheral pulses, normal rate Abdomen: normal bowel sounds, soft, non tender, no scars Extremities: no cyanosis Skin: no rash, no ulcers Microbiology Date/Time Source Procedure Growth Status 07/20/16 14:15 Blood Blood Culture - Preliminary NO GROWTH AFTER 48 HOURS Resulted 07/20/16 14:00 Blood Blood Culture - Preliminary NO GROWTH AFTER 48 HOURS Resulted 07/20/16 14:20 Nasal Nares MRSA Culture - Final NO METHICILLIN RESISTANT STAPH AUREUS... Complete 07/20/16 14:15 Nasal Nares Influenza Types A,B Antigen (LIZA) - Final Complete 07/20/16 14:20 Rectum VRE Culture - Final NO VANCOMYCIN RESISTANT ENTEROCOCCUS ... Complete Laboratory Tests 07/23/16 07:45: White Blood Count 10.5, Red Blood Count 4.31L, Hemoglobin 13.1L, Hematocrit 39.7L, Mean Corpuscular Volume 92, Mean Corpuscular Hemoglobin 30.4, Mean Corpuscular Hemoglobin Concent 33.0, Red Cell Distribution Width 12.3, Platelet Count 196, Mean Platelet Volume 8.4, Neutrophils (%) (Auto) 81.8H, Lymphocytes ( %) (Auto) 14.1L, Monocytes (%) (Auto) 3.8, Eosinophils (%) (Auto) 0.0, Basophils (%) (Auto) 0.2, Sodium Level 143, Potassium Level 4.4, Chloride Level 101, Carbon Dioxide Level 27, Anion Gap 15, Blood Urea Nitrogen 21, Creatinine 0.9, Estimat Glomerular Filtration Rate > 60, Glucose Level 240H, Calcium Level 9.5 Current Medications Medications (Trade) Dose Ordered Sig/Kun Route PRN Reason Start Time Stop Time Status Last Admin Dose Admin Acetaminophen (Tylenol) 650 mg Q4H PRN ORAL fever 07/20/16 15:00 08/19/16 14:59 Albuterol/ Ipratropium (DuoNeb 0.5-3(2.5)mg/3ml) 3 ml EVERY 4 HOURS PRN HHN dyspnea 07/20/16 15:00 07/25/16 14:59 Atorvastatin Calcium (Lipitor) 80 mg BEDTIME ORAL 07/20/16 21:00 08/19/16 20:59 07/22/16 22:02 Buspirone HCl (Buspar) 7.5 mg BID ORAL 07/21/16 09:00 08/20/16 08:59 07/23/16 10:05 Clonidine HCl (Catapres) 0.1 mg EVERY 4 HOURS PRN ORAL sbp more than 160 07/20/16 15:00 08/19/16 14:59 Dextrose (Dextrose 50%) STAT PRN IV Hypoglycemia 07/20/16 15:00 08/19/16 14:59 Divalproex Sodium (Depakote ER) 500 mg EVERY 12 HOURS ORAL 07/21/16 09:00 08/20/16 08:59 07/23/16 10:06 Doxycycline Monohydrate (Vibramycin) 100 mg Q12HR ORAL 07/20/16 21:00 07/27/16 20:59 07/23/16 10:08 Finasteride (Proscar) 5 mg DAILY ORAL 07/21/16 09:00 08/20/16 08:59 07/23/16 10:08 Heparin Sodium (Porcine) (Heparin 5000 units/ml) 5,000 units EVERY 12 HOURS SUBQ 07/20/16 21:00 08/19/16 20:59 07/23/16 10:10 Insulin Aspart (NovoLOG) BEFORE MEALS AND HS SUBQ 07/21/16 06:30 08/20/16 06:29 07/23/16 05:50 Lamotrigine (LaMICtal) 25 mg BID ORAL 07/21/16 09:00 08/20/16 08:59 07/23/16 10:07 Lisinopril (Prinivil) 20 mg DAILY ORAL 07/21/16 09:00 08/20/16 08:59 07/23/16 10:08 Lorazepam (Ativan 2mg/ml 1ml) 0.5 mg Q4H PRN IV For Anxiety 07/20/16 15:00 07/27/16 14:59 07/22/16 04:57 Methylprednisolone Sodium Succinate (Solu-MEDROL) 60 mg EVERY 6 HOURS IV 07/21/16 00:00 08/20/16 00:00 07/23/16 05:50 Morphine Sulfate (Morphine Sulfate) 2 mg EVERY 4 HOURS PRN IVP severe pain 7-10 07/20/16 15:00 07/27/16 14:59 Nitroglycerin (Ntg) 0.4 mg Q5M X 3 DOSES PRN SL Prn Chest Pain 07/20/16 15:00 08/19/16 14:59 Olanzapine (ZyPREXA) 2.5 mg Q12HR ORAL 07/21/16 00:00 08/20/16 00:00 07/23/16 10:08 Ondansetron HCl (Zofran) 4 mg Q6H PRN IVP Nausea & Vomiting 07/20/16 15:00 08/19/16 14:59 Promethazine HCl/ Codeine (Phenergan with Codeine) 5 ml EVERY 6 HOURS PRN ORAL cough 07/20/16 15:00 08/19/16 14:59 Tamsulosin HCl (Flomax) 0.4 mg BEDTIME ORAL 07/20/16 21:00 08/19/16 20:59 07/22/16 22:02 Temazepam (Restoril) 15 mg HSPRN PRN ORAL Insomnia 07/20/16 15:00 07/27/16 14:59 07/23/16 03:26 Theophylline (John-Dur) 100 mg EVERY 12 HOURS ORAL 07/20/16 21:00 08/19/16 20:59 07/22/16 22:02 Ziprasidone (Geodon) 40 mg DAILY ORAL 07/21/16 09:00 08/20/16 08:59 07/23/16 10:07 MICHELLE POLLARD Jul 23, 2016 10:58
[2016-07-23 12:00] VITALS: BP 114/41
[2016-07-23] MEDS: Theophylline ER 100mg ORAL SCH ×2 (12:38→21:10)
--- NOTE | 2016-07-23 13:33 | General Progress Note ---
Assessment/Plan Problem List: (1) Pneumonia ICD Codes: J18.9 - Pneumonia, unspecified organism SNOMED: 940123199 (2) Altered level of consciousness ICD Codes: R40.4 - Transient alteration of awareness SNOMED: 3030503 (3) Prerenal azotemia ICD Codes: R79.89 - Other specified abnormal findings of blood chemistry SNOMED: 004758331 (4) HTN (hypertension) ICD Codes: I10 - Hypertension SNOMED: 25124154 Qualifiers: Qualified Codes: I10 - Essential (primary) hypertension (5) DM (diabetes mellitus) ICD Codes: E11.9 - Diabetes mellitus SNOMED: 80571079 (6) COPD (chronic obstructive pulmonary disease) ICD Codes: J44.9 - Chronic obstructive pulmonary disease, unspecified SNOMED: 11426790 Qualifiers: Qualified Codes: J44.9 - Chronic obstructive pulmonary disease, unspecified (7) Seizure disorder ICD Codes: G40.909 - Seizure disorder SNOMED: 227546227 Status: progressing Assessment/Plan afebrile vitals stable no wheezing no acute events reviewed chart and labs Subjective ROS Limited/Unobtainable: Yes Constitutional: Reports: no symptoms Allergies: Coded Allergies: No Known Allergies (Unverified , 01/05/13) Objective Last 24 Hour Vital Signs Date Time Temp Pulse Resp B/P Pulse Ox O2 Delivery O2 Flow Rate FiO2 07/23/16 12:00 96.0 72 18 114/41 94 Room Air 07/23/16 10:08 147/86 07/23/16 08:00 97.0 68 18 147/86 97 Room Air 07/23/16 04:52 97.2 72 19 100/52 97 Room Air 07/23/16 00:33 97.2 66 19 126/59 98 Room Air 07/22/16 19:00 97.1 70 18 118/58 97 Room Air 07/22/16 16:00 96.6 65 18 102/51 96 Room Air Intake and Output 07/22/16 07/23/16 19:00 07:00 Intake Total 240 ml 300 ml Balance 240 ml 300 ml Intake Oral 240 ml 300 ml # Voids 2 4 # Bowel Movements 1 2 Laboratory Tests 07/23/16 07:45: White Blood Count 10.5, Red Blood Count 4.31L, Hemoglobin 13.1L, Hematocrit 39.7L, Mean Corpuscular Volume 92, Mean Corpuscular Hemoglobin 30.4, Mean Corpuscular Hemoglobin Concent 33.0, Red Cell Distribution Width 12.3, Platelet Count 196, Mean Platelet Volume 8.4, Neutrophils (%) (Auto) 81.8H, Lymphocytes ( %) (Auto) 14.1L, Monocytes (%) (Auto) 3.8, Eosinophils (%) (Auto) 0.0, Basophils (%) (Auto) 0.2, Sodium Level 143, Potassium Level 4.4, Chloride Level 101, Carbon Dioxide Level 27, Anion Gap 15, Blood Urea Nitrogen 21, Creatinine 0.9, Estimat Glomerular Filtration Rate > 60, Glucose Level 240H, Calcium Level 9.5 Height (Feet): 5 Height (Inches): 7.00 Weight (Pounds): 140 EENT: PERRL/EOMI Neck: supple Cardiovascular: normal rate Respiratory/Chest: lungs clear Abdomen: soft Mireille Soto MD Jul 23, 2016 13:33
--- NOTE | 2016-07-23 14:51 | Infectious Diseases Prog Note ---
Assessment/Plan Problems: (1) Upper respiratory infection Assessment & Plan: continue doxycycline for 7 days, influenza screening is negative (2) COPD (chronic obstructive pulmonary disease) Assessment & Plan: with acute exacerbation, continue nebulizer treatment, steroids, and doxycycline (3) DM (diabetes mellitus) Assessment & Plan: recommend tight glycemic control to keep blood glucose between 80-120 (4) HTN (hypertension) Assessment & Plan: continue meds to keep systolic less than 140 (5) Urinary retention Assessment & Plan: recommend austin catheter , and voiding trials . Subjective ROS Limited/Unobtainable: Yes Allergies: Coded Allergies: No Known Allergies (Unverified , 01/05/13) Subjective she is nonverbal, respond to questions by nodding her head. afebrile. Objective Vital Signs Last 24 Hour Vital Signs Date Time Temp Pulse Resp B/P Pulse Ox O2 Delivery O2 Flow Rate FiO2 07/23/16 12:00 96.0 72 18 114/41 94 Room Air 07/23/16 10:08 147/86 07/23/16 08:00 97.0 68 18 147/86 97 Room Air 07/23/16 04:52 97.2 72 19 100/52 97 Room Air 07/23/16 00:33 97.2 66 19 126/59 98 Room Air 07/22/16 19:00 97.1 70 18 118/58 97 Room Air 07/22/16 16:00 96.6 65 18 102/51 96 Room Air Height (Feet): 5 Height (Inches): 7.00 Weight (Pounds): 140 General Appearance: WD/WN, no acute distress HEENT: normocephalic, atraumatic, anicteric, mucous membranes moist Respiratory/Chest: chest wall non-tender, normal breath sounds, no respiratory distress, no accessory muscle use, decreased breath sounds Cardiovascular: normal peripheral pulses, normal rate, regular rhythm, no gallop/murmur Abdomen: normal bowel sounds, soft, non tender, no organomegaly, non distended , no mass, no scars Extremities: no cyanosis, no clubbing Skin: no rash, no lesions, no ulcers Laboratory Tests Test 07/23/16 07:45 White Blood Count 10.5 K/UL (4.8-10.8) Red Blood Count 4.31 M/UL (4.70-6.10) L Hemoglobin 13.1 G/DL (14.2-18.0) L Hematocrit 39.7 % (42.0-52.0) L Mean Corpuscular Volume 92 FL (80-99) Mean Corpuscular Hemoglobin 30.4 PG (27.0-31.0) Mean Corpuscular Hemoglobin Concent 33.0 G/DL (32.0-36.0) Red Cell Distribution Width 12.3 % (11.6-14.8) Platelet Count 196 K/UL (150-450) Mean Platelet Volume 8.4 FL (6.5-10.1) Neutrophils (%) (Auto) 81.8 % (45.0-75.0) H Lymphocytes (%) (Auto) 14.1 % (20.0-45.0) L Monocytes (%) (Auto) 3.8 % (1.0-10.0) Eosinophils (%) (Auto) 0.0 % (0.0-3.0) Basophils (%) (Auto) 0.2 % (0.0-2.0) Sodium Level 143 mEQ/L (135-145) Potassium Level 4.4 mEQ/L (3.4-4.9) Chloride Level 101 mEQ/L (98-107) Carbon Dioxide Level 27 mEQ/L (20-30) Anion Gap 15 (5-15) Blood Urea Nitrogen 21 mg/dL (7-23) Creatinine 0.9 mg/dL (0.7-1.2) Estimat Glomerular Filtration Rate > 60 mL/min (>60) Glucose Level 240 mg/dL (74-106) H Calcium Level 9.5 mg/dL (8.6-10.2) Current Medications Medications (Trade) Dose Ordered Sig/Kun Route PRN Reason Start Time Stop Time Status Last Admin Dose Admin Acetaminophen (Tylenol) 650 mg Q4H PRN ORAL fever 07/20/16 15:00 08/19/16 14:59 Albuterol/ Ipratropium (DuoNeb 0.5-3(2.5)mg/3ml) 3 ml EVERY 4 HOURS PRN HHN dyspnea 07/20/16 15:00 07/25/16 14:59 Atorvastatin Calcium (Lipitor) 80 mg BEDTIME ORAL 07/20/16 21:00 08/19/16 20:59 07/22/16 22:02 Buspirone HCl (Buspar) 7.5 mg BID ORAL 07/21/16 09:00 08/20/16 08:59 07/23/16 10:05 Clonidine HCl (Catapres) 0.1 mg EVERY 4 HOURS PRN ORAL sbp more than 160 07/20/16 15:00 08/19/16 14:59 Dextrose (Dextrose 50%) STAT PRN IV Hypoglycemia 07/20/16 15:00 08/19/16 14:59 Divalproex Sodium (Depakote ER) 500 mg EVERY 12 HOURS ORAL 07/21/16 09:00 08/20/16 08:59 07/23/16 10:06 Doxycycline Monohydrate (Vibramycin) 100 mg Q12HR ORAL 07/20/16 21:00 07/27/16 20:59 07/23/16 10:08 Finasteride (Proscar) 5 mg DAILY ORAL 07/21/16 09:00 08/20/16 08:59 07/23/16 10:08 Heparin Sodium (Porcine) (Heparin 5000 units/ml) 5,000 units EVERY 12 HOURS SUBQ 07/20/16 21:00 08/19/16 20:59 07/23/16 10:10 Insulin Aspart (NovoLOG) BEFORE MEALS AND HS SUBQ 07/21/16 06:30 08/20/16 06:29 07/23/16 12:39 Lamotrigine (LaMICtal) 25 mg BID ORAL 07/21/16 09:00 08/20/16 08:59 07/23/16 10:07 Lisinopril (Prinivil) 20 mg DAILY ORAL 07/21/16 09:00 08/20/16 08:59 07/23/16 10:08 Lorazepam (Ativan 2mg/ml 1ml) 0.5 mg Q4H PRN IV For Anxiety 07/20/16 15:00 07/27/16 14:59 07/22/16 04:57 Methylprednisolone Sodium Succinate (Solu-MEDROL) 60 mg DAILY IV 07/24/16 09:00 08/23/16 08:59 Morphine Sulfate (Morphine Sulfate) 2 mg EVERY 4 HOURS PRN IVP severe pain 7-10 07/20/16 15:00 07/27/16 14:59 Nitroglycerin (Ntg) 0.4 mg Q5M X 3 DOSES PRN SL Prn Chest Pain 07/20/16 15:00 08/19/16 14:59 Olanzapine (ZyPREXA) 2.5 mg Q12HR ORAL 07/21/16 00:00 08/20/16 00:00 07/23/16 10:08 Ondansetron HCl (Zofran) 4 mg Q6H PRN IVP Nausea & Vomiting 07/20/16 15:00 08/19/16 14:59 Promethazine HCl/ Codeine (Phenergan with Codeine) 5 ml EVERY 6 HOURS PRN ORAL cough 07/20/16 15:00 08/19/16 14:59 Tamsulosin HCl (Flomax) 0.4 mg BEDTIME ORAL 07/20/16 21:00 08/19/16 20:59 07/22/16 22:02 Temazepam (Restoril) 15 mg HSPRN PRN ORAL Insomnia 07/20/16 15:00 07/27/16 14:59 07/23/16 03:26 Theophylline (John-Dur) 100 mg EVERY 12 HOURS ORAL 07/20/16 21:00 08/19/16 20:59 07/23/16 12:38 Ziprasidone (Geodon) 40 mg DAILY ORAL 07/21/16 09:00 08/20/16 08:59 07/23/16 10:07 Marcus Mobley M.D. Jul 23, 2016 14:51
[2016-07-23 16:00] VITALS: BP 106/56
[2016-07-23] MEDS: LORazepam Inj 2mg/ml 1ml IV PRN (19:08)
[2016-07-23 20:00] VITALS: BP 109/58
[2016-07-23] MEDS: Atorvastatin 80mg tab ORAL SCH (21:09)
[2016-07-23] MEDS: Tamsulosin 0.4mg cap ORAL SCH (21:11)
[2016-07-24] VITALS: BP 133/72
[2016-07-24 04:00] VITALS: BP 135/69
[2016-07-24] MEDS: LORazepam Inj 2mg/ml 1ml IV PRN (04:33)
[2016-07-24] MEDS: NovoLOG Insulin Flexpen SUBQ SCH ×3 (05:46→17:11)
[2016-07-24 07:36] LABS: BASOPHILS % (AUTO) 0.7 % (0.0-2.0); EOSINOPHILS % (AUTO) 0.1 % (0.0-3.0); LYMPHOCYTES % (AUTO) 26.6 % (20.0-45.0); MEAN CORPUSCULAR HEMOGLOBIN 30.9 PG (27.0-31.0); MEAN CORPUSCULAR HGB CONC 33.2 G/DL (32.0-36.0); MEAN CORPUSCULAR VOLUME 93 FL (80-99); MEAN PLATELET VOLUME 8.2 FL (6.5-10.1); MONOCYTES % (AUTO) 6.8 % (1.0-10.0); NEUTROPHILS % (AUTO) 65.8 % (45.0-75.0); PLATELET COUNT 194 K/UL (150-450); RED BLOOD COUNT 3.89 M/UL (4.70-6.10); RED CELL DISTRIBUTION WIDTH 12.6 % (11.6-14.8); WHITE BLOOD COUNT 12.8 K/UL (4.8-10.8)
[2016-07-24 07:56] LABS: ALANINE AMINOTRANSFERASE 9 U/L (3-41); ALBUMIN/GLOBULIN RATIO 1.3 (1.0-2.7); ANION GAP 15 (5-15); ASPARTATE AMINO TRANSFERASE 10 U/L (5-40); CALCIUM 9.3 mg/dL (8.6-10.2); CARBON DIOXIDE 28 mEQ/L (20-30); CHLORIDE 101 mEQ/L (98-107); GLOMERULAR FILTRATION RATE > 60 mL/min (>60); HEMOLYSIS 25; MAGNESIUM 1.5 mg/dL (1.7-2.5); PHOSPHORUS 2.8 mg/dL (2.5-4.8); POTASSIUM 4.5 mEQ/L (3.4-4.9); SODIUM 144 mEQ/L (135-145); TOTAL PROTEIN 6.3 g/dL (6.6-8.7)
[2016-07-24 08:00] VITALS: BP 103/58
[2016-07-24] MEDS ORDERED: Solu-MEDROL 125mg Inj IV SCH (09:00)
[2016-07-24] MEDS: BusPIRone 5mg Tab ORAL SCH ×2 (09:40→18:35)
[2016-07-24] MEDS: Theophylline ER 100mg ORAL SCH (09:40)
[2016-07-24] MEDS: OLANZapine 2.5mg tab ORAL SCH (09:40)
[2016-07-24] MEDS: Depakote ER 500mg tab ORAL SCH (09:40)
[2016-07-24] MEDS: Ziprasidone 20mg cap ORAL SCH (09:41)
[2016-07-24] MEDS: Heparin 5000 units/ml inj SUBQ SCH (09:45)
[2016-07-24] MEDS: Lisinopril 20mg tab ORAL SCH (09:46)
[2016-07-24 12:00] VITALS: BP_SYST 127; BP_SYST 139; BP_DIAS 64; BP_DIAS 73
--- NOTE | 2016-07-24 13:29 | General Progress Note ---
Assessment/Plan Problem List: (1) Pneumonia ICD Codes: J18.9 - Pneumonia, unspecified organism SNOMED: 848420903 (2) Altered level of consciousness ICD Codes: R40.4 - Transient alteration of awareness SNOMED: 4110075 (3) Prerenal azotemia ICD Codes: R79.89 - Other specified abnormal findings of blood chemistry SNOMED: 777283573 (4) HTN (hypertension) ICD Codes: I10 - Hypertension SNOMED: 67670519 Qualifiers: Qualified Codes: I10 - Essential (primary) hypertension (5) DM (diabetes mellitus) ICD Codes: E11.9 - Diabetes mellitus SNOMED: 70814934 (6) COPD (chronic obstructive pulmonary disease) ICD Codes: J44.9 - Chronic obstructive pulmonary disease, unspecified SNOMED: 89159642 Qualifiers: Qualified Codes: J44.9 - Chronic obstructive pulmonary disease, unspecified (7) Seizure disorder ICD Codes: G40.909 - Seizure disorder SNOMED: 578004302 Status: progressing Assessment/Plan vitals stable resp insuff sepsis anemia dm cri Subjective ROS Limited/Unobtainable: Yes Constitutional: Reports: no symptoms Allergies: Coded Allergies: No Known Allergies (Unverified , 01/05/13) Objective Last 24 Hour Vital Signs Date Time Temp Pulse Resp B/P Pulse Ox O2 Delivery O2 Flow Rate FiO2 07/24/16 12:00 96.3 61 18 127/64 97 Room Air 07/24/16 09:46 103/58 07/24/16 08:00 96.3 70 18 103/58 97 Room Air 07/24/16 04:00 97.2 70 19 135/69 95 Room Air 07/24/16 00:00 97.3 68 20 133/72 96 Room Air 07/23/16 20:00 97.2 77 20 109/58 98 Room Air 07/23/16 16:00 97.2 76 20 106/56 97 Room Air Intake and Output 07/23/16 07/24/16 19:00 07:00 Intake Total 720 ml 360 ml Output Total 650 ml Balance 720 ml -290 ml Intake Oral 720 ml 360 ml Output Urine Total 650 ml # Voids 3 # Bowel Movements 1 Laboratory Tests 07/24/16 05:45: White Blood Count 12.8H, Red Blood Count 3.89L, Hemoglobin 12.0L, Hematocrit 36.1L, Mean Corpuscular Volume 93, Mean Corpuscular Hemoglobin 30.9, Mean Corpuscular Hemoglobin Concent 33.2, Red Cell Distribution Width 12.6, Platelet Count 194, Mean Platelet Volume 8.2, Neutrophils (%) (Auto) 65.8, Lymphocytes (% ) (Auto) 26.6, Monocytes (%) (Auto) 6.8, Eosinophils (%) (Auto) 0.1, Basophils ( %) (Auto) 0.7, Sodium Level 144, Potassium Level 4.5, Chloride Level 101, Carbon Dioxide Level 28, Anion Gap 15, Blood Urea Nitrogen 22, Creatinine 1.0, Estimat Glomerular Filtration Rate > 60, Glucose Level 282H, Calcium Level 9.3, Phosphorus Level 2.8, Magnesium Level 1.5L, Total Bilirubin 0.2, Aspartate Amino Transf (AST/SGOT) 10, Alanine Aminotransferase (ALT/SGPT) 9, Alkaline Phosphatase 56, Total Protein 6.3L, Albumin 3.6, Globulin 2.7, Albumin/Globulin Ratio 1.3 Height (Feet): 5 Height (Inches): 7.00 Weight (Pounds): 140 EENT: PERRL/EOMI Neck: supple Cardiovascular: normal rate Respiratory/Chest: lungs clear Abdomen: soft Mireille Soto MD Jul 24, 2016 13:29
[2016-07-24 16:00] VITALS: BP 124/77
--- NOTE | 2016-07-24 16:22 | Infectious Diseases Prog Note ---
Assessment/Plan Problems: (1) Upper respiratory infection Assessment & Plan: continue doxycycline for 7 days, influenza screening is negative (2) COPD (chronic obstructive pulmonary disease) Assessment & Plan: with acute exacerbation, continue nebulizer treatment, steroids, and doxycycline (3) DM (diabetes mellitus) Assessment & Plan: recommend tight glycemic control to keep blood glucose between 80-120 (4) HTN (hypertension) Assessment & Plan: continue meds to keep systolic less than 140 (5) Urinary retention Assessment & Plan: recommend austin catheter , and voiding trials . Subjective ROS Limited/Unobtainable: Yes Allergies: Coded Allergies: No Known Allergies (Unverified , 01/05/13) Subjective she is nonverbal, respond to questions by nodding her head. afebrile. Objective Vital Signs Last 24 Hour Vital Signs Date Time Temp Pulse Resp B/P Pulse Ox O2 Delivery O2 Flow Rate FiO2 07/24/16 12:00 96.3 61 18 127/64 97 Room Air 07/24/16 09:46 103/58 07/24/16 08:00 96.3 70 18 103/58 97 Room Air 07/24/16 04:00 97.2 70 19 135/69 95 Room Air 07/24/16 00:00 97.3 68 20 133/72 96 Room Air 07/23/16 20:00 97.2 77 20 109/58 98 Room Air Height (Feet): 5 Height (Inches): 7.00 Weight (Pounds): 140 General Appearance: WD/WN, no acute distress HEENT: normocephalic, atraumatic, anicteric, mucous membranes moist Respiratory/Chest: chest wall non-tender, normal breath sounds, no respiratory distress, no accessory muscle use, decreased breath sounds, crackles/rales Cardiovascular: normal peripheral pulses, normal rate, regular rhythm, no gallop/murmur Abdomen: normal bowel sounds, soft, non tender, no organomegaly, non distended , no mass, no scars Extremities: no cyanosis, no clubbing Skin: no rash, no lesions, no ulcers Laboratory Tests Test 07/24/16 05:45 White Blood Count 12.8 K/UL (4.8-10.8) H Red Blood Count 3.89 M/UL (4.70-6.10) L Hemoglobin 12.0 G/DL (14.2-18.0) L Hematocrit 36.1 % (42.0-52.0) L Mean Corpuscular Volume 93 FL (80-99) Mean Corpuscular Hemoglobin 30.9 PG (27.0-31.0) Mean Corpuscular Hemoglobin Concent 33.2 G/DL (32.0-36.0) Red Cell Distribution Width 12.6 % (11.6-14.8) Platelet Count 194 K/UL (150-450) Mean Platelet Volume 8.2 FL (6.5-10.1) Neutrophils (%) (Auto) 65.8 % (45.0-75.0) Lymphocytes (%) (Auto) 26.6 % (20.0-45.0) Monocytes (%) (Auto) 6.8 % (1.0-10.0) Eosinophils (%) (Auto) 0.1 % (0.0-3.0) Basophils (%) (Auto) 0.7 % (0.0-2.0) Sodium Level 144 mEQ/L (135-145) Potassium Level 4.5 mEQ/L (3.4-4.9) Chloride Level 101 mEQ/L (98-107) Carbon Dioxide Level 28 mEQ/L (20-30) Anion Gap 15 (5-15) Blood Urea Nitrogen 22 mg/dL (7-23) Creatinine 1.0 mg/dL (0.7-1.2) Estimat Glomerular Filtration Rate > 60 mL/min (>60) Glucose Level 282 mg/dL (74-106) H Calcium Level 9.3 mg/dL (8.6-10.2) Phosphorus Level 2.8 mg/dL (2.5-4.8) Magnesium Level 1.5 mg/dL (1.7-2.5) L Total Bilirubin 0.2 mg/dL (0.0-1.2) Aspartate Amino Transf (AST/SGOT) 10 U/L (5-40) Alanine Aminotransferase (ALT/SGPT) 9 U/L (3-41) Alkaline Phosphatase 56 U/L (40-129) Total Protein 6.3 g/dL (6.6-8.7) L Albumin 3.6 g/dL (3.5-5.2) Globulin 2.7 g/dL Albumin/Globulin Ratio 1.3 (1.0-2.7) Current Medications Medications (Trade) Dose Ordered Sig/Kun Route PRN Reason Start Time Stop Time Status Last Admin Dose Admin Acetaminophen (Tylenol) 650 mg Q4H PRN ORAL fever 07/20/16 15:00 08/19/16 14:59 Albuterol/ Ipratropium (DuoNeb 0.5-3(2.5)mg/3ml) 3 ml EVERY 4 HOURS PRN HHN dyspnea 07/20/16 15:00 07/25/16 14:59 Atorvastatin Calcium (Lipitor) 80 mg BEDTIME ORAL 07/20/16 21:00 08/19/16 20:59 07/23/16 21:09 Buspirone HCl (Buspar) 7.5 mg BID ORAL 07/21/16 09:00 08/20/16 08:59 07/24/16 09:40 Clonidine HCl (Catapres) 0.1 mg EVERY 4 HOURS PRN ORAL sbp more than 160 07/20/16 15:00 08/19/16 14:59 Dextrose (Dextrose 50%) STAT PRN IV Hypoglycemia 07/20/16 15:00 08/19/16 14:59 Divalproex Sodium (Depakote ER) 500 mg EVERY 12 HOURS ORAL 07/21/16 09:00 08/20/16 08:59 07/24/16 09:40 Doxycycline Monohydrate (Vibramycin) 100 mg Q12HR ORAL 07/20/16 21:00 07/27/16 20:59 07/24/16 09:41 Finasteride (Proscar) 5 mg DAILY ORAL 07/21/16 09:00 08/20/16 08:59 07/24/16 09:43 Heparin Sodium (Porcine) (Heparin 5000 units/ml) 5,000 units EVERY 12 HOURS SUBQ 07/20/16 21:00 08/19/16 20:59 07/24/16 09:45 Insulin Aspart (NovoLOG) BEFORE MEALS AND HS SUBQ 07/21/16 06:30 08/20/16 06:29 07/24/16 12:47 Lamotrigine (LaMICtal) 25 mg BID ORAL 07/21/16 09:00 08/20/16 08:59 07/24/16 09:40 Lisinopril (Prinivil) 20 mg DAILY ORAL 07/21/16 09:00 08/20/16 08:59 07/24/16 09:46 Lorazepam (Ativan 2mg/ml 1ml) 0.5 mg Q4H PRN IV For Anxiety 07/20/16 15:00 07/27/16 14:59 07/24/16 04:33 Methylprednisolone Sodium Succinate (Solu-MEDROL) 60 mg DAILY IV 07/24/16 09:00 08/23/16 08:59 07/24/16 09:41 Morphine Sulfate (Morphine Sulfate) 2 mg EVERY 4 HOURS PRN IVP severe pain 7-10 07/20/16 15:00 07/27/16 14:59 Nitroglycerin (Ntg) 0.4 mg Q5M X 3 DOSES PRN SL Prn Chest Pain 07/20/16 15:00 08/19/16 14:59 Olanzapine (ZyPREXA) 2.5 mg Q12HR ORAL 07/21/16 00:00 08/20/16 00:00 07/24/16 09:40 Ondansetron HCl (Zofran) 4 mg Q6H PRN IVP Nausea & Vomiting 07/20/16 15:00 08/19/16 14:59 Promethazine HCl/ Codeine (Phenergan with Codeine) 5 ml EVERY 6 HOURS PRN ORAL cough 07/20/16 15:00 08/19/16 14:59 Tamsulosin HCl (Flomax) 0.4 mg BEDTIME ORAL 07/20/16 21:00 08/19/16 20:59 07/23/16 21:11 Temazepam (Restoril) 15 mg HSPRN PRN ORAL Insomnia 07/20/16 15:00 07/27/16 14:59 07/23/16 21:28 Theophylline (John-Dur) 100 mg EVERY 12 HOURS ORAL 07/20/16 21:00 08/19/16 20:59 07/24/16 09:40 Ziprasidone (Geodon) 40 mg DAILY ORAL 07/21/16 09:00 08/20/16 08:59 07/24/16 09:41 Marcus Mobley M.D. Jul 24, 2016 16:22
[2016-07-24] MEDS ORDERED: ATORVASTATIN CA40 MG ORAL (17:49)
[2016-07-24] MEDS ORDERED: CATAPRES0.1 MG ORAL (17:53)
[2016-07-24] MEDS ORDERED: PROMETHAZINE-C118 M1 ORAL (17:56)
[2016-07-24] MEDS ORDERED: VIBRAMYCIN100 MG ORAL (17:58)
[2016-07-24] MEDS ORDERED: IPRATROPIU0.2 MG/1 M HHN (18:02)
[2016-07-24] MEDS ORDERED: [UNRECOGNIZED DRUG - OTHER] IV (18:07)
[2016-07-24] MEDS ORDERED: MORPHINE 22 MG/1 ML IVP (18:09)
[2016-07-24] MEDS ORDERED: NITROGLYCERIN0.4 MG SL (18:11)
[2016-07-24] MEDS ORDERED: SALINE 10ML FLU10 ML IVF (18:20)
[2016-07-24] MEDS ORDERED: TEMAZEPAM15 MG ORAL (18:21)
[2016-07-24] MEDS ORDERED: THEOPHYLLINE A100 MG ORAL (18:24)
--- NOTE | 2016-07-24 19:07 | Pulmonology Progress Note ---
Assessment/Plan Problems: (1) Upper respiratory infection (2) COPD with acute exacerbation (3) Seizure disorder (4) Episode of generalized weakness (5) HTN (hypertension) Assessment/Plan afebrile respiratory treatment IV antibiotics check sputum, not available yet tolerating diet improving already decrease solumedrol to qd no cultures yes VRE rectum dc planning in 1/2 days Subjective ROS Limited/Unobtainable: Yes Constitutional: Reports: fatigue Respiratory: Reports: dyspnea at rest, dyspnea on exertion, productive cough, shortness of breath, sputum Neurologic: Reports: confusion, headache, weakness Allergies: Coded Allergies: No Known Allergies (Unverified , 01/05/13) Objective Last 24 Hour Vital Signs Date Time Temp Pulse Resp B/P Pulse Ox O2 Delivery O2 Flow Rate FiO2 07/24/16 16:00 98.2 75 20 124/77 99 Room Air 07/24/16 12:00 96.3 61 18 127/64 97 Room Air 07/24/16 09:46 103/58 07/24/16 08:00 96.3 70 18 103/58 97 Room Air 07/24/16 04:00 97.2 70 19 135/69 95 Room Air 07/24/16 00:00 97.3 68 20 133/72 96 Room Air 07/23/16 20:00 97.2 77 20 109/58 98 Room Air Intake and Output 07/23/16 07/24/16 19:00 07:00 Intake Total 720 ml 360 ml Output Total 650 ml Balance 720 ml -290 ml Intake Oral 720 ml 360 ml Output Urine Total 650 ml # Voids 3 # Bowel Movements 1 General Appearance: no acute distress HEENT: normocephalic, atraumatic, anicteric, PERRL Respiratory/Chest: chest wall non-tender, decreased breath sounds, accessory muscle use, crackles/rales, rhonchi Cardiovascular: normal peripheral pulses, normal rate, regular rhythm, no JVD Abdomen: normal bowel sounds, soft, non tender, no organomegaly Genitourinary: normal external genitalia Extremities: no cyanosis Skin: no rash, no lesions Neurologic/Psychiatric: manager in home II-XII grossly normal, no motor/sensory deficits Laboratory Tests 07/24/16 05:45: White Blood Count 12.8H, Red Blood Count 3.89L, Hemoglobin 12.0L, Hematocrit 36.1L, Mean Corpuscular Volume 93, Mean Corpuscular Hemoglobin 30.9, Mean Corpuscular Hemoglobin Concent 33.2, Red Cell Distribution Width 12.6, Platelet Count 194, Mean Platelet Volume 8.2, Neutrophils (%) (Auto) 65.8, Lymphocytes (% ) (Auto) 26.6, Monocytes (%) (Auto) 6.8, Eosinophils (%) (Auto) 0.1, Basophils ( %) (Auto) 0.7, Sodium Level 144, Potassium Level 4.5, Chloride Level 101, Carbon Dioxide Level 28, Anion Gap 15, Blood Urea Nitrogen 22, Creatinine 1.0, Estimat Glomerular Filtration Rate > 60, Glucose Level 282H, Calcium Level 9.3, Phosphorus Level 2.8, Magnesium Level 1.5L, Total Bilirubin 0.2, Aspartate Amino Transf (AST/SGOT) 10, Alanine Aminotransferase (ALT/SGPT) 9, Alkaline Phosphatase 56, Total Protein 6.3L, Albumin 3.6, Globulin 2.7, Albumin/Globulin Ratio 1.3 Current Medications Medications (Trade) Dose Ordered Sig/Kun Route PRN Reason Start Time Stop Time Status Last Admin Dose Admin Acetaminophen (Tylenol) 650 mg Q4H PRN ORAL fever 07/20/16 15:00 08/19/16 14:59 Albuterol/ Ipratropium (DuoNeb 0.5-3(2.5)mg/3ml) 3 ml EVERY 4 HOURS PRN HHN dyspnea 07/20/16 15:00 07/25/16 14:59 Atorvastatin Calcium (Lipitor) 80 mg BEDTIME ORAL 07/20/16 21:00 08/19/16 20:59 07/23/16 21:09 Buspirone HCl (Buspar) 7.5 mg BID ORAL 07/21/16 09:00 08/20/16 08:59 07/24/16 18:35 Clonidine HCl (Catapres) 0.1 mg EVERY 4 HOURS PRN ORAL sbp more than 160 07/20/16 15:00 08/19/16 14:59 Dextrose (Dextrose 50%) STAT PRN IV Hypoglycemia 07/20/16 15:00 08/19/16 14:59 Divalproex Sodium (Depakote ER) 500 mg EVERY 12 HOURS ORAL 07/21/16 09:00 08/20/16 08:59 07/24/16 09:40 Doxycycline Monohydrate (Vibramycin) 100 mg Q12HR ORAL 07/20/16 21:00 07/27/16 20:59 07/24/16 09:41 Finasteride (Proscar) 5 mg DAILY ORAL 07/21/16 09:00 08/20/16 08:59 07/24/16 09:43 Heparin Sodium (Porcine) (Heparin 5000 units/ml) 5,000 units EVERY 12 HOURS SUBQ 07/20/16 21:00 08/19/16 20:59 07/24/16 09:45 Insulin Aspart (NovoLOG) BEFORE MEALS AND HS SUBQ 07/21/16 06:30 08/20/16 06:29 07/24/16 17:11 Lamotrigine (LaMICtal) 25 mg BID ORAL 07/21/16 09:00 08/20/16 08:59 07/24/16 18:35 Lisinopril (Prinivil) 20 mg DAILY ORAL 07/21/16 09:00 08/20/16 08:59 07/24/16 09:46 Lorazepam (Ativan 2mg/ml 1ml) 0.5 mg Q4H PRN IV For Anxiety 07/20/16 15:00 07/27/16 14:59 07/24/16 04:33 Methylprednisolone Sodium Succinate (Solu-MEDROL) 60 mg DAILY IV 07/24/16 09:00 08/23/16 08:59 07/24/16 09:41 Morphine Sulfate (Morphine Sulfate) 2 mg EVERY 4 HOURS PRN IVP severe pain 7-10 07/20/16 15:00 07/27/16 14:59 Nitroglycerin (Ntg) 0.4 mg Q5M X 3 DOSES PRN SL Prn Chest Pain 07/20/16 15:00 08/19/16 14:59 Olanzapine (ZyPREXA) 2.5 mg Q12HR ORAL 07/21/16 00:00 08/20/16 00:00 07/24/16 09:40 Ondansetron HCl (Zofran) 4 mg Q6H PRN IVP Nausea & Vomiting 07/20/16 15:00 08/19/16 14:59 Promethazine HCl/ Codeine (Phenergan with Codeine) 5 ml EVERY 6 HOURS PRN ORAL cough 07/20/16 15:00 08/19/16 14:59 Tamsulosin HCl (Flomax) 0.4 mg BEDTIME ORAL 07/20/16 21:00 08/19/16 20:59 07/23/16 21:11 Temazepam (Restoril) 15 mg HSPRN PRN ORAL Insomnia 07/20/16 15:00 07/27/16 14:59 07/23/16 21:28 Theophylline (John-Dur) 100 mg EVERY 12 HOURS ORAL 07/20/16 21:00 08/19/16 20:59 07/24/16 09:40 Ziprasidone (Geodon) 40 mg DAILY ORAL 07/21/16 09:00 08/20/16 08:59 07/24/16 09:41 MICHELLE POLLARD Jul 24, 2016 19:07
--- NOTE | 2016-07-25 02:27 | Progress Note ---
DATE: 07/23/2016 PSYCHOTHERAPY CONSULTATION PROGRESS NOTE SUBJECTIVE: The patient is a 65-year-old male. The patient has been very disorganized, confused, and altered mental status. He is also helpless, hopeless, and weak requiring continuous hospitalization for stabilization of symptoms. Mood is depressed. Affect is blunted. Thought process, disorganized. Has poor attention and concentration. Poor insight, judgment and impulse control. This clinician assessed the patient, provided the patient with supportive psychotherapy, reality orientation, coping skills, encouraging the patient to participate in treatment, and requires continuous hospitalization for stabilization of symptoms. This clinician assessed the patient's mental status and provided the patient with supportive psychotherapy. Continue with medication management and behavioral management. This clinician has reviewed the patient's chart. Discussed the treatment with nursing staff. Beulah Villavicencio PsyD. DR: Latisha JOB#: [id number] CC:
[2016-07-25] MEDS ORDERED: MEDROL4 MG ORAL (13:10)
--- NOTE | 2016-07-25 13:15 | Discharge Summary ---
Discharge Summary Hospital Course Date of Admission Jul 20, 2016 at 14:56 Date of Discharge Jul 24, 2016 at 19:40 Admitting Diagnosis PNEUMONIA HPI Pj Moon is a 65 year old male who was admitted on Jul 20, 2016 at 14:56 for Pneumonia Hospital Course dc summary dictated #[id number] Discharge Medications New Medications: Methylprednisolone* (Medrol*) 4 Mg Tablet 4 MG ORAL DAILY, #10 TAB 0 Refills Continued Medications: Acetaminophen* (Acetaminophen*) 325 Mg Tablet 650 MG ORAL Q6H PRN for Mild Pain/Temp > 100.5, #1 TAB Atorvastatin Calcium* (Atorvastatin Calcium*) 40 Mg Tablet 80 MG ORAL BEDTIME, TAB Buspirone Hcl* (Buspar*) 10 Mg Tablet 7.5 MG ORAL BID, #15 TAB 0 Refills Clonidine Hcl* (Catapres*) 0.1 Mg Tablet 0.1 MG ORAL EVERY 4 HOURS PRN for PRN, TAB SBP >160 Codeine/Promethazine Hcl* (Promethazine-Codeine Syrup*) 118 Ml Syrup 5 ML ORAL Q6H PRN for For Cough, ML 0 Refills Divalproex Sodium* (Depakote Er*) 500 Mg Tab.er.24h 500 MG ORAL EVERY 12 HOURS, TAB Doxycycline Hyclate* (Vibramycin*) 100 Mg Capsule 100 MG ORAL EVERY 12 HOURS, CAP 0 Refills Finasteride* (Proscar*) 5 Mg Tablet 5 MG ORAL DAILY, #30 TAB 0 Refills Heparin Sod (Porcine) (Heparin Sodium*) 5 000/1 Ml Vial 5000 UNITS SUBQ EVERY 12 HOURS, VIAL Insulin Aspart (Novolog Flexpen) 100 Units/Ml Pen 0 UNITS SUBQ NOVOTIAC, #1 EA Ipratropium [place] 0.5MG/2.5ML (Ipratropium [place] 0.5MG/2.5ML) 0.2 Mg/1 Ml Solution 0.5 MG HHN Q4HR PRN for Shortness of Breath, EA Lamotrigine* (Lamictal*) 25 Mg Tablet 25 MG ORAL BID, #1 TAB Lisinopril (Lisinopril*) 20 Mg Tablet 20 MG ORAL DAILY, #1 TAB Nitroglycerin (Nitroglycerin) 0.4 Mg Tab.subl 0.4 MG SL Q5MIN X 3 DOSES PRN PRN for Prn Chest Pain, TAB Olanzapine* (Zyprexa*) 2.5 Mg Tablet 2.5 MG ORAL Q12HR, TAB 0 Refills Saline (Sodium Chloride) 2.5 Ml Syringe 10 ML IVF Q8HR PRN for LINE FLUSH, SYR Tamsulosin HCl (Flomax) 0.4 Mg Cap 0.4 MG ORAL BEDTIME, #1 CAP Temazepam (Temazepam*) 15 Mg Capsule 15 MG ORAL BEDTIME PRN for PRN INSOMNIA, CAP 0 Refills Theophylline (Theodur*) 100 Mg Tab.er.12h 100 MG ORAL Q12HR, TAB 0 Refills Ziprasidone Hcl* (Geodon*) 20 Mg Capsule 40 MG ORAL DAILY, #1 CAP Discontinued Medications: Al Hydroxide/mg Hydroxide (Mag-Al Plus Suspension) 30 Ml Oral.susp 30 ML PO Q6HR PRN for dyspepsia, ML Albuterol Sulfate* (Albuterol Sulfate Hhn*) 2.5 Mg/3 Ml Vial.neb 3 ML INH Q6H PRN for Shortness of Breath, #30 EA 0 Refills Aspirin* (Aspirin*) 81 Mg Tab.chew 81 MG ORAL DAILY, TAB Atorvastatin Calcium* (Lipitor*) 80 Mg Tablet 80 MG ORAL BEDTIME, TAB Ceftriaxone Sodium (Ceftriaxone) 1 Gm Vial.port 1 GM IVPB DAILY, VIAL Clonidine HCl (Clonidine HCl) 0.1 Mg Tab 0.1 MG ORAL Q6H PRN for For High Blood Pressure, #1 TAB Clonidine Hcl* (Catapres*) 0.1 Mg Tablet 0.1 MG ORAL EVERY 6 HOURS PRN for For High Blood Pressure, TAB Clopidogrel Bisulfate* (Plavix*) 75 Mg Tablet 75 MG ORAL DAILY, #1 TAB Clopidogrel Bisulfate* (Plavix*) 75 Mg Tablet 75 MG ORAL DAILY, TAB Docusate Sodium* (Colace*) 100 Mg Capsule 100 MG ORAL TWICE A DAY, #1 CAP Ferrous Sulfate (Feosol) 325 Mg Tablet 325 MG ORAL DAILY, #1 TAB Finasteride (Finasteride) 5 Mg Tablet 5 MG ORAL DAILY, #1 TAB Insulin Detemir (Levemir Flexpen) 100 Unit/1 Ml Insuln.pen 10 UNITS SUBQ BIAC, #1 EA Lisinopril* (Zestril*) 20 Mg Tablet 20 MG ORAL DAILY, TAB Lorazepam (Lorazepam) 2 Mg/1 Ml Syringe 0.5 MG IVP Q4H PRN for For Anxiety, EA Magnesium Oxide (Magnesium Oxide) 400 Mg Tablet 400 MG ORAL BID, #30 TAB 0 Refills Megestrol Acetate (Megace) 400 Mg/10 Ml Oral.susp 400 MG PO DAILY, ML Metformin Hcl* (Glucophage*) 500 Mg Tablet 500 MG ORAL BEFORE BREAKFAST, #1 TAB Metformin Hcl* (Metformin Hcl*) 1,000 Mg Tablet 1000 MG ORAL BID, TAB Methylprednisolone Sod Succ (Methylprednisolone Sod Succ) 125 Mg Vial 60 MG IV DAILY, VIAL Morphine Sulfate* (Morphine Sulfate*) 2 Mg/1 Ml Cartridge 1 MG IVP Q4HR PRN for For Pain, EA Morphine Sulfate* (Morphine Sulfate*) 2 Mg/1 Ml Cartridge 2 MG IVP Q4HR PRN for PRN SEVERE PAIN 7-10, EA Nateglinide* (Starlix*) 60 Mg Tablet 120 MG ORAL THREE TIMES A DAY, TAB Nateglinide* (Starlix*) 60 Mg Tablet 120 MG ORAL THREE TIMES A DAY, TAB Ondansetron* (Zofran*) 4 Mg Tablet 4 MG IVP Q6HR PRN for Nausea & Vomiting, TAB Ondansetron* (Zofran*) 4 Mg/2 Ml Vial 4 MG IVP Q6H PRN for Nausea & Vomiting, VIAL Oxybutynin Chloride (Ditropan Xl) 5 Mg Tab.er.24 2.5 MG ORAL BID, TAB Polyethylene Glycol 3350* (Polyethylene Glycol 3350*) 17 Gm Powd.pack 17 GM ORAL HS PRN for Constipation, PACKET Sitagliptin (Januvia) 100 Mg Tab 100 MG ORAL ACBREAKFAST, #1 TAB Zolpidem Tartrate* (Zolpidem Tartrate*) 5 Mg Tablet 5 MG ORAL BEDTIME PRN for Insomnia, TAB 0 Refills [Levetiracetam] () 500 MG TAB 500 MG ORAL Q12HR, #1 Discharge Discharge Disposition Patient was discharged to [facility] ([facility]) Discharge Diagnoses: Dennis (Reginabhumika)Sarah NP Jul 25, 2016 13:15
--- NOTE | 2016-07-26 03:47 | Discharge Summary ---
DATE OF ADMISSION: 07/20/2016 DATE OF DISCHARGE: 07/24/2016 ADMITTING DIAGNOSES: 1. Chronic obstructive pulmonary disease with acute exacerbation. 2. Upper respiratory infection. 3. Seizure disorder. 4. Hypertension. 5. Acute toxic encephalopathy with altered level of consciousness possibly related to paranoid schizophrenia. DISCHARGE DIAGNOSES: 1. Upper respiratory infection. 2. Acute chronic obstructive pulmonary disease exacerbation. 3. Diabetes mellitus. 4. Hypertension. 5. Acute toxic encephalopathy, likely related tp paranoid schizophrenia, improved 6. Paranoid schizophrenia. 7. Seizure disorder. HOSPITAL STAY FOR PROBLEM: 1. Influenza screen was negative. The patient will be continued on doxycycline for 7 days. ID and pulmonary followed the patient. 2. Supplemental oxygen and pulmonary toilet were provided as needed. IV steroids with tapering administered in the hospital. Chest x-ray revealed no acute cardiopulmonary disease. Upon discharge, IV steroids were changed to oral Medrol Dosepak and continue oral antibiotics as indicated above ( doxycycline x 7 days). Continue antitussive as needed. Continue theophylline. Continue inhalers at home 3. Blood sugar was managed with sliding scale of insulin as needed. May need further optimization of antiglycemic regimen as outpatient. Blood sugar stable. 4, Blood pressure was managed with ACVE, stable. 5/6. Mental status back to the baseline. Acute toxic encephalopathy possibly due the paranoid schizophrenia and psychiatric medication. Psych therapist had seen the patient. The patient was continued on Zyprexa and Geodon. 7. Seizure precautions were maintained, no seizure activities while in the hospital. The patient was continued on Depakote and Lamictal. DISCHARGE MEDICATIONS: See medication reconciliation list. CONDITION: Stable. DISCHARGE INSTRUCTIONS: The patient was discharged to [facility] facility. FOLLOWUP: Follow up with medical doctor at the facility. Nura Carter D.O. Saarh Harriseleno N.P. DR: FLOYD JOB#: [id number] CC: MASON
--- NOTE | 2016-07-28 20:38 | Progress Note ---
DATE: 07/23/2016 SUBJECTIVE: This is a 65-year-old male patient. He continued to have some confusion, disorganized thought process, and altered mental status. PLAN: Continue treatment with BuSpar 7.5 mg twice a day, , Zyprexa 2.5 mg twice a day. Chart reviewed and discussed with staff. Seen and assessed at bedside. Berto Umana M.D. DR: DEX JOB#: [id number] CC:
--- NOTE | 2016-07-28 20:47 | Progress Note ---
DATE: 07/24/2016 PSYCHIATRIC PROGRESS NOTE PLAN: My plan for this patient is to continue treatment with Geodon 40 mg daily, Zyprexa 2.5 mg twice a day, and BuSpar 7.5 mg twice a day. Chart was reviewed and discussed with staff. He was seen and assessed at the bedside. Berto Umana M.D. DR: SAM JOB#: [id number] CC:
--- NOTE | 2016-07-29 00:37 | Consultation ---
DATE OF CONSULTATION: 07/21/2016 HISTORY OF PRESENT ILLNESS: This is a 65-year-old male patient who was admitted to [facility] confused, disorganized, and poor cognition secondary to progression of his medical illness. This patient was admitted to [facility] secondary to shortness of breath. The patient came in from [facility] to [facility] coughing diagnosed with pneumonia and sepsis, and he was admitted to the medical floor, but this patient has underlying diagnosis of schizoaffective, bipolar type, on Geodon and Depakote as well as Lamictal and Zyprexa. A psychiatric consultation was requested for to stabilize his mood swings and mood lability, and agitation has started to become more escalated secondary to the progression of his medical illness. PAST PSYCHIATRIC HISTORY: Schizoaffective, bipolar type. He has had psychiatric admissions. MEDICAL HISTORY: CVA, COPD, hyperlipidemia, and hypertension. ALLERGIES: No known drug allergies. SOCIAL HISTORY: The patient lives in a chcf, [facility]. He is financially supported by [employer] and Medicare. SUBSTANCE ABUSE HISTORY: Denies drug and alcohol use. MENTAL STATUS EXAMINATION: This is a 65-year-old male. He has some psychomotor agitation. Mood is irritable and agitated. Affect guarded and restricted. Thought process is disorganized and illogical. Denies suicidal or homicidal thoughts. His insight and judgment are poor. DIAGNOSIS: Schizoaffective, bipolar type. PLAN: Plan for this patient is throughout his hospital course at [facility], I am going to treat him with a dose of BuSpar 7.5 mg twice a day to reduce anxiety, and Depakote 500 mg twice a day for mood stabilization, as well as treatment with Geodon 40 mg daily, and Zyprexa 2.5 mg q. 12.h. He will continued to be followed by Psychiatry throughout his hospital course. Chart reviewed. Discussed with staff. I would like to thank, Dr. Nura Carter, for this interesting consultation. Chart reviewed and discussed with staff. The patient is seen and assessed at bedside. Berto Umana M.D. DR: SHI JOB#: [id number] CC:
== END 2016-07-24 19:40 | DRG 190 ==
LOC: ENRESERVDT → ENRESERVTM → EDBD 12:24 → EMR 14:41 → 3E 14:56 → EDBEDREQ 21:44 → 3E 07-21 01:00 → 4W 07-24 08:45
DX: J44.1 Chronic obstructive pulmonary disease with (acute) exacerbation (principal); G92 Toxic encephalopathy; I10 Essential (primary) hypertension; D64.9 Anemia, unspecified; E11.9 Type 2 diabetes mellitus without complications; F20.0 Paranoid schizophrenia; J06.9 Acute upper respiratory infection, unspecified; G40.909 Epilepsy, unspecified, not intractable, without status epilepticus; Z74.01 Bed confinement status; Z79.4 Long term (current) use of insulin; R53.1 Weakness; Z86.73 Personal history of transient ischemic attack (TIA), and cerebral infarction without residual deficits; R33.9 Retention of urine, unspecified
CPT/HCPCS: 36415; 71010; 80048; 80053; 81003; 82550; 82553; 82962; 83605; 83735; 83880; 84100; 84484; 85025; 86710; 87040; 87081; 93005; 94640; 94664; J1815

== ENCOUNTER 2017-04-10 11:15 | Inpatient (IN) | payer MEDICARE, MEDICAID ==
[~2017-04-10] VITALS: Ht 170.2 cm; Wt 68.0 kg
[~2017-04-10 11:15] MED LIST changes: +ALBUTEROL2.5 MG/3 M INH; +ATORVASTATIN CA40 MG ORAL; +DEPAKOTE ER500 MG ORAL; +IPRATROPIU0.2 MG/1 M HHN; +LORazepam Inj 2mg/ml 1ml IV ONE; +MEDROL4 MG ORAL; +NITROGLYCERIN0.4 MG SL; +PROMETHAZINE-C118 M1 ORAL; +SALINE 10ML FLU10 ML IVF; +TEMAZEPAM15 MG ORAL; +THEOPHYLLINE A100 MG ORAL; +VIBRAMYCIN100 MG ORAL; +[UNRECOGNIZED DRUG - OTHER] IV; +levETIRAcetam 500 MG in D5W 110 ML IV ONE
[2017-04-10 11:40] VITALS: BP 147/72
[2017-04-10] MEDS ORDERED: levETIRAcetam 500mg vial IV ONE (11:41)
[2017-04-10 11:55] LABS: BASOPHILS % (AUTO) 1.1 % (0.0-2.0); EOSINOPHILS % (AUTO) 1.9 % (0.0-3.0); LYMPHOCYTES % (AUTO) 40.5 % (20.0-45.0); MEAN CORPUSCULAR HGB CONC 32.8 G/DL (32.0-36.0); MEAN CORPUSCULAR VOLUME 95 FL (80-99); MEAN PLATELET VOLUME 6.7 FL (6.5-10.1); MONOCYTES % (AUTO) 8.2 % (1.0-10.0); NEUTROPHILS % (AUTO) 48.4 % (45.0-75.0); PLATELET COUNT 206 K/UL (150-450); RED BLOOD COUNT 4.22 M/UL (4.70-6.10); RED CELL DISTRIBUTION WIDTH 12.6 % (11.6-14.8); WHITE BLOOD COUNT 6.1 K/UL (4.8-10.8)
[2017-04-10 12:07] LABS: ALANINE AMINOTRANSFERASE 12 U/L (3-41); ALBUMIN/GLOBULIN RATIO 1.5 (1.0-2.7); ANION GAP 16 (5-15); ASPARTATE AMINO TRANSFERASE 24 U/L (5-40); CALCIUM 9.5 mg/dL (8.6-10.2); CARBON DIOXIDE 27 mEQ/L (20-30); CHLORIDE 98 mEQ/L (98-107); GLOMERULAR FILTRATION RATE > 60 mL/min (>60); HEMOLYSIS 7; POTASSIUM 4.4 mEQ/L (3.4-4.9); SODIUM 141 mEQ/L (135-145); TOTAL PROTEIN 7.2 g/dL (6.6-8.7); TROPONIN I < 0.30 ng/mL (<=0.30)
--- NOTE | 2017-04-10 12:10 | Diagnostic Imaging Report ---
Indication: Dyspnea Comparison: 07/20/16 A single view chest radiograph was obtained. Findings: Cardiomediastinal appearance is within normal limits for age. Lungs are clear although lung volumes are very low. Pulmonary vascularity is appropriate. The diaphragmatic contour is smooth and costophrenic angles are sharp. No pleural effusions are identified. The bones are osteopenic. Impression: No acute findings
[2017-04-10] MEDS ORDERED: COLACE100 MG ORAL (12:37)
[2017-04-10] MEDS ORDERED: FLEET ENEMA133 ML RECTAL (12:40)
[2017-04-10] MEDS ORDERED: DULCOLAX10 MG RC (12:40)
[2017-04-10] MEDS ORDERED: DEXTROSE PO (12:40)
[2017-04-10] MEDS ORDERED: GLUCAGON W/DILUE1 MG IM (12:41)
[2017-04-10] MEDS ORDERED: INSULIN NPH SUBQ ×2 (12:44)
--- NOTE | 2017-04-10 13:00 | Emergency Room Report ---
History of Present Illness General Chief Complaint: Seizure Source: Medical Record, EMS Present Illness HPI The patient is brought in by EMS. [facility] Is a history of seizures. He's on the monitor Lo. The assumption is that he is been getting his medications. The seizure lasted 1 minute. Paramedics transported patient. His blood sugar was 142 in the field. There is no history of trauma aside from oral trauma when he the inside of his mouth during the seizure. The patient is able to vocalize but does not follow commands. He's had a stroke in the past. Review of medication list only reveals lamotrigine for seizures. (Later review of prior hospitalization reveals depakote.) H/O DM H/O paranoid schizophrenia H/O COPD Allergies: Coded Allergies: No Known Allergies (Unverified , 01/05/13) Patient History Limited by: medical condition Past Medical History: see triage record, old chart reviewed Social History: Denies: smoking, alcohol use, drug use Social History Narrative SNF Reviewed Nursing Documentation: PMH: Agreed, PSxH: Agreed Nursing Documentation-PMH Hx Cardiac Problems: Yes - CHF Hx Hypertension: Yes Hx Diabetes: Yes Hx Cancer: No Hx Gastrointestinal Problems: No Hx Neurological Problems: Yes - CVA, Dysphagia, epilepsy Hx Cerebrovascular Accident: Yes Hx Seizures: Yes Hx Epilepsy: Yes Hx Dysphasia: Yes Review of Systems All Other Systems: limited Physical Exam Vital Signs Date Time Temp Pulse Resp B/P (MAP) Pulse Ox O2 Delivery O2 Flow Rate FiO2 04/10/17 11:16 97.7 92 20 164/92 95 Room Air Sp02 EP Interpretation: reviewed, normal General Appearance: no apparent distress, non-toxic, Chronically Ill, Postictal Head: normocephalic, atraumatic Eyes: bilateral eye normal inspection, bilateral eye PERRL ENT: moist mucus membranes - poor dentition, old blood R side of mouth, no active bleeding or obvious tongue macerations Neck: supple Respiratory: lungs clear, normal breath sounds Cardiovascular #1: regular rate, rhythm Cardiovascular #2: 2+ radial (L) Gastrointestinal: normal inspection, normal bowel sounds, non tender, no mass, non-distended Musculoskeletal: other - contractures L arm and leg Neurologic: alert - post ictal, responds to voice, responsive, motor weakness - L hemiparesis, Babinski - L Psychiatric: depressed affect - post ictal Skin: normal inspection, normal color, no rash Medical Decision Making Diagnostic Impression: Primary Impression: Epileptic seizure, generalized Additional Impressions: Uncontrolled seizures Qualified Codes: R56.9 - Unspecified convulsions Status post CVA DM (diabetes mellitus) Qualified Codes: E10.8 - Type 1 diabetes mellitus with unspecified complications ER Course Patient with generalized seizure with h/o same post CVA. On meds. DDx; non- compliance, breakthrough seizure, bleed, electrolyte abnormalities, cardiac cause amongst others. Emergent evaluation with EKG, CXR, labs and CT head. Treatment with ativan and dose of keppra as may need coverage beyond lamotrigine. Clinically not with aspiration. Some minimal oral trauma without continued bleeding. CT unable to complete due to movement - due to improving mentation, choose to observe and CT if mentation worsens. CXR no infiltrates. Labs with normal WBC, lytes. Patient with improving mentation. Needs observation to determine if seizures controlled with current treatment. Admit telemetry Dr. Gastelum. Laboratory Tests Test 04/10/17 11:35 White Blood Count 6.1 K/UL (4.8-10.8) Red Blood Count 4.22 M/UL (4.70-6.10) L Hemoglobin 13.1 G/DL (14.2-18.0) L Hematocrit 39.9 % (42.0-52.0) L Mean Corpuscular Volume 95 FL (80-99) Mean Corpuscular Hemoglobin 31.0 PG (27.0-31.0) Mean Corpuscular Hemoglobin Concent 32.8 G/DL (32.0-36.0) Red Cell Distribution Width 12.6 % (11.6-14.8) Platelet Count 206 K/UL (150-450) Mean Platelet Volume 6.7 FL (6.5-10.1) Neutrophils (%) (Auto) 48.4 % (45.0-75.0) Lymphocytes (%) (Auto) 40.5 % (20.0-45.0) Monocytes (%) (Auto) 8.2 % (1.0-10.0) Eosinophils (%) (Auto) 1.9 % (0.0-3.0) Basophils (%) (Auto) 1.1 % (0.0-2.0) Sodium Level 141 mEQ/L (135-145) Potassium Level 4.4 mEQ/L (3.4-4.9) Chloride Level 98 mEQ/L (98-107) Carbon Dioxide Level 27 mEQ/L (20-30) Anion Gap 16 (5-15) H Blood Urea Nitrogen 10 mg/dL (7-23) Creatinine 1.0 mg/dL (0.7-1.2) Estimate Glomerular Filtration Rate > 60 mL/min (>60) Glucose Level 194 mg/dL (74-106) H Calcium Level 9.5 mg/dL (8.6-10.2) Total Bilirubin 0.5 mg/dL (0.0-1.2) Aspartate Amino Transferase (AST) 24 U/L (5-40) Alanine Aminotransferase (ALT) 12 U/L (3-41) Alkaline Phosphatase 46 U/L (40-129) Total Creatine Kinase 117 U/L (38-174) Troponin I < 0.30 ng/mL (<=0.30) Total Protein 7.2 g/dL (6.6-8.7) Albumin 4.4 g/dL (3.5-5.2) Globulin 2.8 g/dL Albumin/Globulin Ratio 1.5 (1.0-2.7) EKG Diagnostic Results Rate: normal Rhythm: NSR ST Segments: other - Left axis deviation right bundle-branch block Rhythm Strip Diag. Results EP Interpretation: yes Rhythm: NSR, no PVC's, no ectopy Last Vital Signs Date Time Temp Pulse Resp B/P (MAP) Pulse Ox O2 Delivery O2 Flow Rate FiO2 04/10/17 20:00 97.3 76 18 159/86 95 Room Air Status: improved Disposition: ADMITTED INPATIENT Condition: Serious Referrals: FABIO GASTELUM (PCP) Abe Staley M.D. Apr 10, 2017 13:00
[2017-04-10 13:19] LABS: APPEARANCE,URINE CLEAR; KETONES,URINE 1+ (NEGATIVE); LEUKOCYTE ESTERASE ,URINE NEGATIVE (NEGATIVE); NITRITE,URINE NEGATIVE (NEGATIVE); PH,URINE 8 (4.5-8.0); PROTEIN,URINE 2+ (NEGATIVE); UROBILINOGEN,URINE NORMAL MG/DL (0.0-1.0)
[2017-04-10 13:21] VITALS: BP 158/78
[2017-04-10 13:32] LABS: BACTERIA,URINE FEW /HPF; SQUAMOUS EPITHELIAL CELL,UR OCCASIONAL /LPF (NONE/OCC); WBC,URINE 0-2 /HPF (0 - 0)
[2017-04-10] MEDS ORDERED: Morphine Sulfate 2mg/ml Inj IVP PRN (15:45)
[2017-04-10] MEDS ORDERED: Miralax 17gm pkt ORAL PRN (15:45)
[2017-04-10] MEDS ORDERED: Mylanta II UD 30ml ORAL PRN (15:45)
[2017-04-10 15:58] VITALS: BP 140/94
[2017-04-10 16:00] VITALS: BP 150/92
[2017-04-10] MEDS ORDERED: LORazepam Inj 2mg/ml 1ml IV ONE (16:30)
[2017-04-10] MEDS ORDERED: LORazepam Inj 2mg/ml 1ml IV PRN (17:00)
[2017-04-10] MEDS: BusPIRone 5mg Tab ORAL SCH (17:01)
[2017-04-10] MEDS: NovoLOG Insulin Flexpen SUBQ SCH ×2 (17:02→21:25)
--- NOTE | 2017-04-10 17:41 | Neurology Progress Note ---
Objective Physical Exam Last Vital Signs Date Time Temp Pulse Resp B/P (MAP) Pulse Ox O2 Delivery O2 Flow Rate FiO2 04/10/17 16:00 96.9 92 19 150/92 95 Room Air Laboratory Tests Test 04/10/17 11:35 04/10/17 12:30 White Blood Count 6.1 K/UL (4.8-10.8) Red Blood Count 4.22 M/UL (4.70-6.10) L Hemoglobin 13.1 G/DL (14.2-18.0) L Hematocrit 39.9 % (42.0-52.0) L Mean Corpuscular Volume 95 FL (80-99) Mean Corpuscular Hemoglobin 31.0 PG (27.0-31.0) Mean Corpuscular Hemoglobin Concent 32.8 G/DL (32.0-36.0) Red Cell Distribution Width 12.6 % (11.6-14.8) Platelet Count 206 K/UL (150-450) Mean Platelet Volume 6.7 FL (6.5-10.1) Neutrophils (%) (Auto) 48.4 % (45.0-75.0) Lymphocytes (%) (Auto) 40.5 % (20.0-45.0) Monocytes (%) (Auto) 8.2 % (1.0-10.0) Eosinophils (%) (Auto) 1.9 % (0.0-3.0) Basophils (%) (Auto) 1.1 % (0.0-2.0) Sodium Level 141 mEQ/L (135-145) Potassium Level 4.4 mEQ/L (3.4-4.9) Chloride Level 98 mEQ/L (98-107) Carbon Dioxide Level 27 mEQ/L (20-30) Anion Gap 16 (5-15) H Blood Urea Nitrogen 10 mg/dL (7-23) Creatinine 1.0 mg/dL (0.7-1.2) Estimat Glomerular Filtration Rate > 60 mL/min (>60) Glucose Level 194 mg/dL (74-106) H Calcium Level 9.5 mg/dL (8.6-10.2) Total Bilirubin 0.5 mg/dL (0.0-1.2) Aspartate Amino Transf (AST/SGOT) 24 U/L (5-40) Alanine Aminotransferase (ALT/SGPT) 12 U/L (3-41) Alkaline Phosphatase 46 U/L (40-129) Total Creatine Kinase 117 U/L (38-174) Troponin I < 0.30 ng/mL (<=0.30) Total Protein 7.2 g/dL (6.6-8.7) Albumin 4.4 g/dL (3.5-5.2) Globulin 2.8 g/dL Albumin/Globulin Ratio 1.5 (1.0-2.7) Urine Color Pale yellow Urine Appearance Clear Urine pH 8 (4.5-8.0) Urine Specific [place] 1.015 (1.005-1.035) Urine Protein 2+ (NEGATIVE) H Urine Glucose (UA) Negative (NEGATIVE) Urine Ketones 1+ (NEGATIVE) H Urine Occult Blood 2+ (NEGATIVE) H Urine Nitrite Negative (NEGATIVE) Urine Bilirubin Negative (NEGATIVE) Urine Urobilinogen Normal MG/DL (0.0-1.0) Urine Leukocyte Esterase Negative (NEGATIVE) Urine RBC 2-4 /HPF (0 - 0) H Urine WBC 0-2 /HPF (0 - 0) Urine Squamous Epithelial Cells Occasional /LPF Urine Bacteria Few /HPF (NONE) Impression/Recommendations Recommendations #[id number] JAIRO SALAS Apr 10, 2017 17:41
[2017-04-10 20:00] VITALS: BP 159/86
[2017-04-10] MEDS ORDERED: Depakote ER 500mg tab ORAL SCH (21:00)
[2017-04-10] MEDS ORDERED: Zolpidem 5mg tab ORAL PRN (21:00)
[2017-04-10] MEDS: Depakote ER 500mg tab ORAL SCH (21:17)
[2017-04-10] MEDS: Tamsulosin 0.4mg cap ORAL SCH (21:17)
[2017-04-10] MEDS: Theophylline ER 100mg ORAL SCH (21:17)
[2017-04-10] MEDS: OLANZapine 2.5mg tab ORAL SCH (21:17)
[2017-04-10] MEDS: Heparin 5000 units/ml inj SUBQ SCH (21:22)
--- NOTE | 2017-04-10 22:15 | History and Physical Report ---
DATE OF ADMISSION: 04/10/2017 TIME: At 2 p.m. ATTENDING PHYSICIAN: Nura Carter D.O. CONSULTANTS: 1. Rody Jerry M.D. 2. Brandon Bui M.D. 3. Berto Umana M.D. CHIEF COMPLAINT: Recurrent seizure and confusion. Brief History: This is a 66-year-old male from [facility], presents with seizure x2, postictal. The patient was diagnosed with the above in the ER, being admitted to the telemetry for further care. Currently, confused in bed, not talking much. Past Medial History: Includes seizure, CVA, hypertension, diabetes, and COPD. PAST SURGICAL HISTORY: Unknown. ALLERGIES: Denies. MEDICATIONS: Include Keppra and Ativan. Social History: No smoking. No alcohol. No intravenous drug abuse. FAMILY HISTORY: Noncontributory. REVIEW OF SYSTEMS: Not available. PHYSICAL EXAMINATION: GENERAL: Calm in bed, oriented x1, in no acute distress. Vital Signs: Temperature is 97 degrees, pulse 90, respirations 20, and blood pressure 158/78. CARDIOVASCULAR: No murmurs. LUNGS: Distant and clear. ABDOMEN: Positive bowel sounds. Nontender and nondistended. EXTREMITIES: No cyanosis, clubbing, or edema. Neurological: The patient is slightly weak x4, otherwise moves all extremities. Laboratory Data: Labs at this time show white count of 13, hemoglobin 13.1, otherwise CBC normal. BMP shows glucose 194, otherwise BMP normal. Urinalysis, 2+ occult blood, 1+ ketone, 2+ protein, otherwise normal. ASSESSMENT: 1. Seizure. 2. Altered mental status. 3. Cerebrovascular accident. 4. Anemia. 5. Diabetes. 6. Hypertension. 7. Chronic obstructive pulmonary disease. PLAN: 1. Continue premedications. 2. OT, PT, and dietary evaluation. 3. CBC and BMP in the morning. 4. Resume home medications. 5. Blood pressure and blood sugar control. 6. Seizure control. 7. Dietary followup. 8. Dr. Jerry, Dr. Bui, and Dr. Umana to consult. 9. We will continue to follow this patient. Nura Carter D.O. DR: GLENROY JOB#: [id number] CC:
[2017-04-11] VITALS: BP 130/85
--- NOTE | 2017-04-11 01:15 | Consultation ---
DATE OF CONSULTATION: 04/10/2017 NEUROLOGICAL CONSULTATION CONSULTING PHYSICIAN: Brandon Bui M.D. REQUESTING PHYSICIAN: Nura Carter D.O. History Of Present Illness: The patient is a 66-year-old chronically ill man, resident of a nursing facility, was admitted to this hospital after he had an episode of generalized seizure episode. Note that the patient is suffering from chronic seizure disorder. His current seizure lasted about 1 minute. Paramedics were called to the scene. Blood sugar was 142 in the field. He had a bitten tongue. Admission chest x-ray, no acute findings. Admission vital signs remained stable. Blood pressure 147/72, heart rate of 107, and temperature 96.9. Lab work was obtained revealing mild anemia, hemoglobin 13.1 and hematocrit 39.9. Chemistry panel with blood sugar 194, and anion gap of 16, otherwise, normal study. Urinalysis, 1+ ketone and 2+ protein. Since admission until present time, there was no further paroxysmal event according to nursing staff. The patient became extremely agitated and restless. He was able to speak Romanian only. He was demanding to remove monitors. He was yelling, screaming, able to follow few simple commands given in Romanian. He was then sedated with 2 mg of Ativan IV, still able to proceed with his dinner eating, but with limited verbal output. EKG, right bundle-branch block with normal sinus rhythm. Past Medical History: The patient has extensive medical history. This includes COPD. He had a previous stroke with left hemiparesis, diabetes type 2, hypertension, and chronic schizophrenia. Medications: His treatment list included atorvastatin, BuSpar, clonidine, cough syrup, Depakote 500 mg b.i.d., doxycycline, finasteride, glucagon, insulin, Lamictal 25 mg b.i.d., lisinopril, Medrol, nitroglycerin, olanzapine 2.5 mg b.i.d., tamsulosin, temazepam, theophylline, and Geodon 40 mg daily. Since admission until present, there was no seizure activity. ALLERGIES: None reported. SOCIAL HISTORY: Resident of a nursing facility. FAMILY HISTORY: Unavailable. REVIEW OF SYMPTOMS: Unable to obtain due to the patient's status. PHYSICAL EXAMINATION: General: A well-developed, somewhat malnourished appearing man, lying in bed, now being helped with dinner. Vital Signs: Stable. Blood pressure 150/92, temperature 96.9, and heart rate of 92. HEENT: Head, normocephalic. There is no evidence of trauma. Eyes, ears, and throat are clear. NECK: Supple. Musculoskeletal: Upper and lower extremities, with contracted left upper extremity. Peripheral pulses 1+ and symmetric. Neurologic: Mental Status: The patient is alert, but nonverbal. Does not have any eye contact home and refusing to follow command, but still able to eat. Cranial Nerves Cranial Nerve II: Pupils both responding to light and accommodation. Extraocular movements full range. CRANIAL NERVE V: Normal corneal responses. CRANIAL NERVE VII: Drooped left nasolabial fold. CRANIAL NERVE VIII: Grossly normal hearing. Cranial Nerves IX through XII: Tongue is in midline. Symmetric palate elevation. No evidence of dysphagia. Motor examination revealed a normal muscle tone and strength, right upper and right lower extremity. Spastic left extremities with spastic contracture of left wrist, weakness 1/5 left arm, 3/5 left lower extremity. Deep tendon reflexes 3+ on the left and 1+ on the right. Positive Babinski on the left. SENSORY EXAMINATION: Withdrawing to pin stimulation in all limbs. IMPRESSION: 1. Chronic seizure disorder exacerbation. 2. 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 3. Diabetes type 2. 4. Hypertension. 5. Chronic psychiatric disorder. 6. Chronic obstructive pulmonary disease. RECOMMENDATION: 1. Continue with sedative treatment including Geodon and olanzapine, as per Psychiatry. 2. Maintain appropriate blood pressure and diabetes control. 3. Obtain Depakote level and increase the dose up to mid high therapeutic range. 4. We will adjust Lamictal dose appropriately. 5. Check electroencephalogram and get a CT of the brain without contrast for baseline. Thank you for allowing me to see this interesting patient in neurological consultation. Brandon Bui M.D. DR: WARD JOB#: [id number] CC:
[2017-04-11 04:00] VITALS: BP 121/75
[2017-04-11] MEDS: NovoLOG Insulin Flexpen SUBQ SCH ×4 (06:39→21:00)
[2017-04-11 08:00] VITALS: BP 105/69
[2017-04-11 08:21] LABS: BASOPHILS % (AUTO) 0.9 % (0.0-2.0); EOSINOPHILS % (AUTO) 1.8 % (0.0-3.0); LYMPHOCYTES % (AUTO) 37.5 % (20.0-45.0); MEAN CORPUSCULAR HEMOGLOBIN 31.6 PG (27.0-31.0); MEAN CORPUSCULAR HGB CONC 33.5 G/DL (32.0-36.0); MEAN CORPUSCULAR VOLUME 94 FL (80-99); NEUTROPHILS % (AUTO) 52.9 % (45.0-75.0); PLATELET COUNT 237 K/UL (150-450); RED BLOOD COUNT 3.85 M/UL (4.70-6.10); RED CELL DISTRIBUTION WIDTH 12.5 % (11.6-14.8); WHITE BLOOD COUNT 5.8 K/UL (4.8-10.8)
[2017-04-11 08:31] LABS: ALANINE AMINOTRANSFERASE 10 U/L (3-41); ALBUMIN/GLOBULIN RATIO 1.3 (1.0-2.7); ANION GAP 10 (5-15); ASPARTATE AMINO TRANSFERASE 14 U/L (5-40); CALCIUM 9.2 mg/dL (8.6-10.2); CARBON DIOXIDE 29 mEQ/L (20-30); CHLORIDE 104 mEQ/L (98-107); GLOMERULAR FILTRATION RATE > 60 mL/min (>60); HEMOLYSIS 0; SODIUM 143 mEQ/L (135-145); TOTAL PROTEIN 6.6 g/dL (6.6-8.7)
[2017-04-11] MEDS: Ziprasidone 20mg cap ORAL SCH (09:00)
[2017-04-11] MEDS: Theophylline ER 100mg ORAL SCH ×2 (09:00→21:00)
[2017-04-11] MEDS: Depakote ER 500mg tab ORAL SCH (09:00)
[2017-04-11] MEDS: Lisinopril 20mg tab ORAL SCH (09:00)
[2017-04-11] MEDS: BusPIRone 5mg Tab ORAL SCH ×2 (09:00→17:02)
[2017-04-11] MEDS: OLANZapine 2.5mg tab ORAL SCH ×2 (09:00→21:00)
--- NOTE | 2017-04-11 09:48 | Consultation ---
History of Present Illness General Date patient seen: Apr 10, 2017 Chief Complaint: Seizure Present Illness HPI 66 year old male with hx of CVA, chronic seizures, DM, paranoid, schizophrenia, COPD, brought in by EMS with CC of seizure at [facility]. The seizure lasted 1 minute. Paramedics transported patient. The patient is able to vocalize but does not follow commands. He is admitted to telemetry for further work up. Allergies: Coded Allergies: No Known Allergies (Unverified , 01/05/13) Medication History Scheduled Atorvastatin Calcium* (Atorvastatin Calcium*), 80 MG ORAL BEDTIME, (Reported) Buspirone Hcl* (Buspar*), 5 MG ORAL BID, (Reported) Divalproex Sodium* (Depakote Er*), 500 MG ORAL EVERY 12 HOURS, (Reported) Docusate Sodium* (Colace*), 100 MG ORAL DAILY, (Reported) Doxycycline Hyclate* (Vibramycin*), 100 MG ORAL EVERY 12 HOURS, (Reported) Finasteride* (Proscar*), 5 MG ORAL DAILY, (Reported) Heparin Sod (Porcine) (Heparin Sodium*), 5,000 UNITS SUBQ EVERY 12 HOURS, ( Reported) Insulin Aspart (Novolog Flexpen), 0 UNITS SUBQ NOVOTIAC Lamotrigine* (Lamictal*), 25 MG ORAL BID Lisinopril (Lisinopril*), 20 MG ORAL DAILY Methylprednisolone* (Medrol*), 4 MG ORAL DAILY Olanzapine* (Zyprexa*), 2.5 MG ORAL Q12HR, (Reported) Tamsulosin HCl (Flomax), 0.4 MG ORAL BEDTIME Theophylline (Theodur*), 100 MG ORAL Q12HR, (Reported) Ziprasidone Hcl* (Geodon*), 40 MG ORAL DAILY [Insulin Nph], 12 UNITS SUBQ MORNING, (Reported) [Insulin Nph], 6 UNITS SUBQ EVENING, (Reported) Scheduled PRN Acetaminophen* (Acetaminophen 325MG Tablet*), 650 MG ORAL Q6H PRN for Mild Pain/ Temp > 100.5 Bisacodyl (Dulcolax), 10 MG RC DAILY PRN for Constipation, (Reported) Clonidine Hcl* (Catapres*), 0.1 MG ORAL EVERY 4 HOURS PRN for PRN, (Reported) Codeine/Promethazine Hcl* (Promethazine-Codeine Syrup*), 5 ML ORAL Q6H PRN for For Cough, (Reported) Glucagon (Glucagen), 1 MG IM PRN PRN for Hypoglycemia, (Reported) Ipratropium Sewell 0.5MG/2.5ML (Ipratropium [place]ell 0.5MG/2.5ML), 0.5 MG HHN Q4HR PRN for Shortness of Breath, (Reported) Na Phos,M-B/Na Phos,Di-Ba* (Fleet Enema*), 133 ML RECTAL DAILY PRN for Constipation, (Reported) Nitroglycerin (Nitroglycerin), 0.4 MG SL Q5MIN X 3 DOSES PRN PRN for Prn Chest Pain, (Reported) Saline (Sodium Chloride), 10 ML IVF Q8HR PRN for LINE FLUSH, (Reported) Temazepam (Temazepam*), 15 MG ORAL BEDTIME PRN for PRN INSOMNIA, (Reported) [Dextrose Powder], 15 GM PO PRN PRN for Hypoglycemia, (Reported) Patient History Healthcare decision maker Resuscitation status Full Code Advanced Directive on File No Review of Systems All Other Systems: negative except mentioned in HPI Physical Exam General Appearance: WD/WN Lines, tubes and drains: peripheral HEENT: normocephalic, atraumatic Neck: non-tender, normal alignment Respiratory/Chest: chest wall non-tender, lungs clear Cardiovascular/Chest: normal peripheral pulses, normal rate Abdomen: non tender Genitourinary/Rectal: normal genital exam Last 24 Hour Vital Signs Date Time Temp Pulse Resp B/P (MAP) Pulse Ox O2 Delivery O2 Flow Rate FiO2 04/11/17 08:00 96.8 67 22 105/69 96 Room Air 04/11/17 04:00 97.4 70 18 121/75 96 Room Air 04/11/17 04:00 71 04/11/17 00:00 97.9 73 18 130/85 95 Room Air 04/11/17 00:00 78 04/10/17 20:00 78 04/10/17 20:00 97.3 76 18 159/86 95 Room Air 04/10/17 16:00 89 04/10/17 16:00 96.9 92 19 150/92 95 Room Air 04/10/17 15:58 98.1 86 18 140/94 96 Room Air 04/10/17 13:42 107 24 163/83 97 Room Air 04/10/17 13:21 90 20 158/78 100 Room Air 04/10/17 11:40 79 20 147/72 100 Room Air 04/10/17 11:26 92 20 Room Air 04/10/17 11:16 97.7 92 20 164/92 95 Room Air Intake and Output 04/11/17 04/12/17 19:00 07:00 Intake Total 220 ml Balance 220 ml Intake Oral 220 ml Laboratory Tests Test 04/10/17 11:35 04/10/17 12:30 04/11/17 07:45 White Blood Count 6.1 K/UL (4.8-10.8) 5.8 K/UL (4.8-10.8) Red Blood Count 4.22 M/UL (4.70-6.10) L 3.85 M/UL (4.70-6.10) L Hemoglobin 13.1 G/DL (14.2-18.0) L 12.2 G/DL (14.2-18.0) L Hematocrit 39.9 % (42.0-52.0) L 36.3 % (42.0-52.0) L Mean Corpuscular Volume 95 FL (80-99) 94 FL (80-99) Mean Corpuscular Hemoglobin 31.0 PG (27.0-31.0) 31.6 PG (27.0-31.0) H Mean Corpuscular Hemoglobin Concent 32.8 G/DL (32.0-36.0) 33.5 G/DL (32.0-36.0) Red Cell Distribution Width 12.6 % (11.6-14.8) 12.5 % (11.6-14.8) Platelet Count 206 K/UL (150-450) 237 K/UL (150-450) Mean Platelet Volume 6.7 FL (6.5-10.1) 7.0 FL (6.5-10.1) Neutrophils (%) (Auto) 48.4 % (45.0-75.0) 52.9 % (45.0-75.0) Lymphocytes (%) (Auto) 40.5 % (20.0-45.0) 37.5 % (20.0-45.0) Monocytes (%) (Auto) 8.2 % (1.0-10.0) 7.0 % (1.0-10.0) Eosinophils (%) (Auto) 1.9 % (0.0-3.0) 1.8 % (0.0-3.0) Basophils (%) (Auto) 1.1 % (0.0-2.0) 0.9 % (0.0-2.0) Sodium Level 141 mEQ/L (135-145) 143 mEQ/L (135-145) Potassium Level 4.4 mEQ/L (3.4-4.9) 4.0 mEQ/L (3.4-4.9) Chloride Level 98 mEQ/L (98-107) 104 mEQ/L (98-107) Carbon Dioxide Level 27 mEQ/L (20-30) 29 mEQ/L (20-30) Anion Gap 16 (5-15) H 10 (5-15) Blood Urea Nitrogen 10 mg/dL (7-23) 13 mg/dL (7-23) Creatinine 1.0 mg/dL (0.7-1.2) 1.0 mg/dL (0.7-1.2) Estimat Glomerular Filtration Rate > 60 mL/min (>60) > 60 mL/min (>60) Glucose Level 194 mg/dL (74-106) H 141 mg/dL (74-106) H Calcium Level 9.5 mg/dL (8.6-10.2) 9.2 mg/dL (8.6-10.2) Total Bilirubin 0.5 mg/dL (0.0-1.2) 0.6 mg/dL (0.0-1.2) Aspartate Amino Transf (AST/SGOT) 24 U/L (5-40) 14 U/L (5-40) Alanine Aminotransferase (ALT/SGPT) 12 U/L (3-41) 10 U/L (3-41) Alkaline Phosphatase 46 U/L (40-129) 45 U/L (40-129) Total Creatine Kinase 117 U/L (38-174) Troponin I < 0.30 ng/mL (<=0.30) Total Protein 7.2 g/dL (6.6-8.7) 6.6 g/dL (6.6-8.7) Albumin 4.4 g/dL (3.5-5.2) 3.8 g/dL (3.5-5.2) Globulin 2.8 g/dL 2.8 g/dL Albumin/Globulin Ratio 1.5 (1.0-2.7) 1.3 (1.0-2.7) Valproic Acid (Depakene) Level 21 ug/mL (50-100) L Urine Color Pale yellow Urine Appearance Clear Urine pH 8 (4.5-8.0) Urine Specific [place] 1.015 (1.005-1.035) Urine Protein 2+ (NEGATIVE) H Urine Glucose (UA) Negative (NEGATIVE) Urine Ketones 1+ (NEGATIVE) H Urine Occult Blood 2+ (NEGATIVE) H Urine Nitrite Negative (NEGATIVE) Urine Bilirubin Negative (NEGATIVE) Urine Urobilinogen Normal MG/DL (0.0-1.0) Urine Leukocyte Esterase Negative (NEGATIVE) Urine RBC 2-4 /HPF (0 - 0) H Urine WBC 0-2 /HPF (0 - 0) Urine Squamous Epithelial Cells Occasional /LPF Urine Bacteria Few /HPF (NONE) Height (Feet): 5 Height (Inches): 7.00 Weight (Pounds): 150 Medications Current Medications Medications (Trade) Dose Ordered Sig/Kun Route PRN Reason Start Time Stop Time Status Last Admin Dose Admin Acetaminophen (Tylenol) 650 mg Q4H PRN ORAL T>100.5 04/10/17 15:45 05/10/17 15:44 Al Hydroxide/Mg Hydroxide (Mylanta II) 30 ml Q6H PRN ORAL dyspepsia 04/10/17 15:45 05/10/17 15:44 Buspirone HCl (Buspar) 5 mg BID ORAL 04/10/17 18:00 05/10/17 17:59 04/10/17 17:01 Clonidine HCl (Catapres) 0.1 mg Q4H PRN ORAL SBP>160 mmHg 04/10/17 15:45 05/10/17 15:44 Dextrose (Dextrose 50%) STAT PRN IV Hypoglycemia 04/10/17 15:45 05/10/17 15:44 Divalproex Sodium (Depakote ER) 1,000 mg EVERY 12 HOURS ORAL 04/10/17 21:00 11/1/17 20:59 04/10/17 21:17 Finasteride (Proscar) 5 mg DAILY ORAL 04/11/17 09:00 05/11/17 08:59 Heparin Sodium (Porcine) (Heparin 5000 units/ml) 5,000 units EVERY 12 HOURS SUBQ 04/10/17 21:00 05/10/17 20:59 04/10/17 21:22 Insulin Aspart (NovoLOG) BEFORE MEALS AND HS SUBQ 04/10/17 17:30 05/10/17 17:29 04/11/17 06:39 Lamotrigine (LaMICtal) 25 mg BID ORAL 04/10/17 18:00 05/10/17 17:59 04/10/17 17:30 Levetiracetam (Keppra) 500 mg Q12HR ORAL 04/10/17 17:45 05/10/17 17:44 04/10/17 21:16 Lisinopril (Prinivil) 20 mg DAILY ORAL 04/11/17 09:00 05/11/17 08:59 Lorazepam (Ativan 2mg/ml 1ml) 2 mg EVERY HOUR PRN IV seizures 04/10/17 17:00 04/17/17 16:59 04/10/17 21:27 Morphine Sulfate (Morphine Sulfate) 1 mg Q4H PRN IVP PAIN 4-10 04/10/17 15:45 04/17/17 15:44 Olanzapine (ZyPREXA) 2.5 mg Q12HR ORAL 04/10/17 21:00 05/10/17 20:59 04/10/17 21:17 Ondansetron HCl (Zofran) 4 mg Q6H PRN IVP Nausea & Vomiting 04/10/17 17:00 05/10/17 16:59 Polyethylene Glycol (Miralax) 17 gm HSPRN PRN ORAL Constipation 04/10/17 15:45 05/10/17 15:44 Tamsulosin HCl (Flomax) 0.4 mg BEDTIME ORAL 04/10/17 21:00 05/10/17 20:59 04/10/17 21:17 Theophylline (John-Dur) 100 mg Q12HR ORAL 04/10/17 21:00 05/10/17 20:59 04/10/17 21:17 Ziprasidone (Geodon) 40 mg DAILY ORAL 04/11/17 09:00 05/11/17 08:59 Zolpidem Tartrate (Ambien) 5 mg HSPRN PRN ORAL Insomnia 04/10/17 21:00 04/17/17 20:59 Assessment/Plan Problem List: (1) Uncontrolled seizures ICD Codes: R56.9 - Unspecified convulsions SNOMED: 17959240 Qualifiers: Qualified Codes: R56.9 - Unspecified convulsions (2) COPD (chronic obstructive pulmonary disease) ICD Codes: J44.9 - Chronic obstructive pulmonary disease, unspecified SNOMED: 24611011 (3) DM (diabetes mellitus) ICD Codes: E11.9 - Diabetes mellitus SNOMED: 25603715 Qualifiers: Qualified Codes: E10.8 - Type 1 diabetes mellitus with unspecified complications (4) Status post CVA ICD Codes: Z86.73 - Personal history of transient ischemic attack (TIA), and cerebral infarction without residual deficits SNOMED: 194888460 (5) HTN (hypertension) ICD Codes: I10 - Hypertension SNOMED: 86748775 Assessment/Plan telemetry monitoring neuro evaluation Ativan prn sliding scale swallow evaluation MICHELLE POLLARD Apr 11, 2017 09:48
--- NOTE | 2017-04-11 09:53 | Pulmonology Progress Note ---
Assessment/Plan Problems: (1) Uncontrolled seizures (2) COPD (chronic obstructive pulmonary disease) (3) DM (diabetes mellitus) (4) Status post CVA (5) HTN (hypertension) Assessment/Plan swallow study pending aspiration precaution sliding scale dvt propylaxis Subjective ROS Limited/Unobtainable: Yes Interval Events: awake, not cohorent Allergies: Coded Allergies: No Known Allergies (Unverified , 01/05/13) Objective Last 24 Hour Vital Signs Date Time Temp Pulse Resp B/P (MAP) Pulse Ox O2 Delivery O2 Flow Rate FiO2 04/11/17 08:00 96.8 67 22 105/69 96 Room Air 04/11/17 04:00 97.4 70 18 121/75 96 Room Air 04/11/17 04:00 71 04/11/17 00:00 97.9 73 18 130/85 95 Room Air 04/11/17 00:00 78 04/10/17 20:00 78 04/10/17 20:00 97.3 76 18 159/86 95 Room Air 04/10/17 16:00 89 04/10/17 16:00 96.9 92 19 150/92 95 Room Air 04/10/17 15:58 98.1 86 18 140/94 96 Room Air 04/10/17 13:42 107 24 163/83 97 Room Air 04/10/17 13:21 90 20 158/78 100 Room Air 04/10/17 11:40 79 20 147/72 100 Room Air 04/10/17 11:26 92 20 Room Air 04/10/17 11:16 97.7 92 20 164/92 95 Room Air Intake and Output 04/11/17 04/12/17 19:00 07:00 Intake Total 220 ml Balance 220 ml Intake Oral 220 ml General Appearance: cachetic HEENT: normocephalic, atraumatic Respiratory/Chest: chest wall non-tender, lungs clear, normal breath sounds Cardiovascular: normal peripheral pulses, normal rate Abdomen: normal bowel sounds, soft, non tender Genitourinary: normal external genitalia Extremities: no cyanosis Skin: no rash Neurologic/Psychiatric: mobile nurse II-XII grossly normal Laboratory Tests 04/10/17 11:35: White Blood Count 6.1, Red Blood Count 4.22L, Hemoglobin 13.1L, Hematocrit 39.9L , Mean Corpuscular Volume 95, Mean Corpuscular Hemoglobin 31.0, Mean Corpuscular Hemoglobin Concent 32.8, Red Cell Distribution Width 12.6, Platelet Count 206, Mean Platelet Volume 6.7, Neutrophils (%) (Auto) 48.4, Lymphocytes (% ) (Auto) 40.5, Monocytes (%) (Auto) 8.2, Eosinophils (%) (Auto) 1.9, Basophils ( %) (Auto) 1.1, Sodium Level 141, Potassium Level 4.4, Chloride Level 98, Carbon Dioxide Level 27, Anion Gap 16H, Blood Urea Nitrogen 10, Creatinine 1.0, Estimat Glomerular Filtration Rate > 60, Glucose Level 194H, Calcium Level 9.5, Total Bilirubin 0.5, Aspartate Amino Transf (AST/SGOT) 24, Alanine Aminotransferase (ALT/SGPT) 12, Alkaline Phosphatase 46, Total Creatine Kinase 117, Troponin I < 0.30, Total Protein 7.2, Albumin 4.4, Globulin 2.8, Albumin/ Globulin Ratio 1.5, Valproic Acid (Depakene) Level 21L 04/10/17 12:30: Urine Color Pale yellow, Urine Appearance Clear, Urine pH 8, Urine Specific [place] 1.015, Urine Protein 2+H, Urine Glucose (UA) Negative, Urine Ketones 1+H , Urine Occult Blood 2+H, Urine Nitrite Negative, Urine Bilirubin Negative, Urine Urobilinogen Normal, Urine Leukocyte Esterase Negative, Urine RBC 2-4H, Urine WBC 0-2, Urine Squamous Epithelial Cells Occasional, Urine Bacteria Few 04/11/17 07:45: White Blood Count 5.8, Red Blood Count 3.85L, Hemoglobin 12.2L, Hematocrit 36.3L , Mean Corpuscular Volume 94, Mean Corpuscular Hemoglobin 31.6H, Mean Corpuscular Hemoglobin Concent 33.5, Red Cell Distribution Width 12.5, Platelet Count 237, Mean Platelet Volume 7.0, Neutrophils (%) (Auto) 52.9, Lymphocytes (% ) (Auto) 37.5, Monocytes (%) (Auto) 7.0, Eosinophils (%) (Auto) 1.8, Basophils ( %) (Auto) 0.9, Sodium Level 143, Potassium Level 4.0, Chloride Level 104, Carbon Dioxide Level 29, Anion Gap 10, Blood Urea Nitrogen 13, Creatinine 1.0, Estimat Glomerular Filtration Rate > 60, Glucose Level 141H, Calcium Level 9.2, Total Bilirubin 0.6, Aspartate Amino Transf (AST/SGOT) 14, Alanine Aminotransferase (ALT/SGPT) 10, Alkaline Phosphatase 45, Total Protein 6.6, Albumin 3.8, Globulin 2.8, Albumin/Globulin Ratio 1.3 Current Medications Medications (Trade) Dose Ordered Sig/Kun Route PRN Reason Start Time Stop Time Status Last Admin Dose Admin Acetaminophen (Tylenol) 650 mg Q4H PRN ORAL T>100.5 04/10/17 15:45 05/10/17 15:44 Al Hydroxide/Mg Hydroxide (Mylanta II) 30 ml Q6H PRN ORAL dyspepsia 04/10/17 15:45 05/10/17 15:44 Buspirone HCl (Buspar) 5 mg BID ORAL 04/10/17 18:00 05/10/17 17:59 04/10/17 17:01 Clonidine HCl (Catapres) 0.1 mg Q4H PRN ORAL SBP>160 mmHg 04/10/17 15:45 05/10/17 15:44 Dextrose (Dextrose 50%) STAT PRN IV Hypoglycemia 04/10/17 15:45 05/10/17 15:44 Divalproex Sodium (Depakote ER) 1,000 mg EVERY 12 HOURS ORAL 04/10/17 21:00 05/10/17 20:59 04/10/17 21:17 Finasteride (Proscar) 5 mg DAILY ORAL 04/11/17 09:00 05/11/17 08:59 Heparin Sodium (Porcine) (Heparin 5000 units/ml) 5,000 units EVERY 12 HOURS SUBQ 04/10/17 21:00 05/10/17 20:59 04/10/17 21:22 Insulin Aspart (NovoLOG) BEFORE MEALS AND HS SUBQ 04/10/17 17:30 05/10/17 17:29 04/11/17 06:39 Lamotrigine (LaMICtal) 25 mg BID ORAL 04/10/17 18:00 05/10/17 17:59 04/10/17 17:30 Levetiracetam (Keppra) 500 mg Q12HR ORAL 04/10/17 17:45 05/10/17 17:44 04/10/17 21:16 Lisinopril (Prinivil) 20 mg DAILY ORAL 04/11/17 09:00 05/11/17 08:59 Lorazepam (Ativan 2mg/ml 1ml) 2 mg EVERY HOUR PRN IV seizures 04/10/17 17:00 04/17/17 16:59 04/10/17 21:27 Morphine Sulfate (Morphine Sulfate) 1 mg Q4H PRN IVP PAIN 4-10 04/10/17 15:45 04/17/17 15:44 Olanzapine (ZyPREXA) 2.5 mg Q12HR ORAL 04/10/17 21:00 05/10/17 20:59 04/10/17 21:17 Ondansetron HCl (Zofran) 4 mg Q6H PRN IVP Nausea & Vomiting 04/10/17 17:00 05/10/17 16:59 Polyethylene Glycol (Miralax) 17 gm HSPRN PRN ORAL Constipation 04/10/17 15:45 05/10/17 15:44 Tamsulosin HCl (Flomax) 0.4 mg BEDTIME ORAL 04/10/17 21:00 05/10/17 20:59 04/10/17 21:17 Theophylline (John-Dur) 100 mg Q12HR ORAL 04/10/17 21:00 05/10/17 20:59 04/10/17 21:17 Ziprasidone (Geodon) 40 mg DAILY ORAL 04/11/17 09:00 05/11/17 08:59 Zolpidem Tartrate (Ambien) 5 mg HSPRN PRN ORAL Insomnia 04/10/17 21:00 04/17/17 20:59 MICHELLE POLLARD Apr 11, 2017 09:53
[2017-04-11] MEDS: Heparin 5000 units/ml inj SUBQ SCH ×2 (10:18→21:20)
[2017-04-11] MEDS ORDERED: LORazepam Inj 2mg/ml 1ml IV PRN (10:45)
[2017-04-11 12:00] VITALS: BP 129/78
--- NOTE | 2017-04-11 12:39 | Diagnostic Imaging Report ---
Indication: Seizure. Headache Technique: Contiguous 5 mm thick transaxial imaging of the head obtained in a Siemens Sensation [address] scanner. Soft tissue and bone windows generated. Total Dose length Product (DLP): [address] Dose Index Volume (CTDIvol): 70.38, 0.15 mGy Comparison: 05/18/16 Findings: Large area of encephalomalacia demonstrated within the right posterior parietal lobe involving a portion of the right temporal lobe consistent with an old infarct. Focal volume loss associated with mild compensatory dilatation of the right lateral ventricle. There is moderate generalized atrophy of the brain noted globally involving cerebrum and cerebellum. No edema or mass effect, midline shift or acute hemorrhage identified. Small cystic focus noted in the left superior cerebellum and within bilateral basal ganglia consistent with old infarcts. Confluent low attenuation of periventricular white matter noted. The osseous structures are unremarkable. Vascular calcifications of anterior and posterior circulation arteries noted. Impression: No definite evidence of acute intracranial bleed, mass effect or edema. Old right MCA distribution infarct unchanged from the last study. Old left superior cerebellar infarct. Old bilateral basal ganglia lacunar infarct. Moderate generalized atrophy the brain. Periventricular low-attenuation consistent chronic small as a disease. Atherosclerotic vascular disease The CT scanner at [facility] is accredited by the [employer] and the scans are performed using dose optimization techniques as appropriate to a performed exam including Automatic Exposure control.
--- NOTE | 2017-04-11 13:09 | General Progress Note ---
Assessment/Plan Problem List: (1) Acute CVA (cerebrovascular accident) ICD Codes: I63.9 - Acute CVA (cerebrovascular accident) SNOMED: 298170986 (2) Seizure disorder ICD Codes: G40.909 - Seizure disorder SNOMED: 321222420 (3) Encephalopathy ICD Codes: G93.40 - Encephalopathy, unspecified SNOMED: 78393029 (4) COPD with acute exacerbation ICD Codes: J44.1 - Chronic obstructive pulmonary disease with (acute) exacerbation SNOMED: 582350352 (5) DM (diabetes mellitus) ICD Codes: E11.9 - Diabetes mellitus SNOMED: 95172625 Qualifiers: Qualified Codes: E10.8 - Type 1 diabetes mellitus with unspecified complications (6) Altered level of consciousness ICD Codes: R40.4 - Transient alteration of awareness SNOMED: 7134621 (7) HTN (hypertension) ICD Codes: I10 - Hypertension SNOMED: 50928814 Status: stable, progressing, tolerating diet Assessment/Plan seizure control ot pt diet cbc bmp am ltach eval Subjective Constitutional: Reports: weakness Allergies: Coded Allergies: No Known Allergies (Unverified , 01/05/13) All Systems: reviewed and negative except above Subjective calm confused in bed Objective Last 24 Hour Vital Signs Date Time Temp Pulse Resp B/P (MAP) Pulse Ox O2 Delivery O2 Flow Rate FiO2 04/11/17 12:00 83 04/11/17 08:00 96.8 67 22 105/69 96 Room Air 04/11/17 08:00 74 04/11/17 04:00 97.4 70 18 121/75 96 Room Air 04/11/17 04:00 71 04/11/17 00:00 97.9 73 18 130/85 95 Room Air 04/11/17 00:00 78 04/10/17 20:00 78 04/10/17 20:00 97.3 76 18 159/86 95 Room Air 04/10/17 16:00 89 04/10/17 16:00 96.9 92 19 150/92 95 Room Air 04/10/17 15:58 98.1 86 18 140/94 96 Room Air 04/10/17 13:42 107 24 163/83 97 Room Air 04/10/17 13:21 90 20 158/78 100 Room Air Intake and Output 04/11/17 04/12/17 19:00 07:00 Intake Total 220 ml Balance 220 ml Intake Oral 220 ml Laboratory Tests 04/11/17 07:45: White Blood Count 5.8, Red Blood Count 3.85L, Hemoglobin 12.2L, Hematocrit 36.3L , Mean Corpuscular Volume 94, Mean Corpuscular Hemoglobin 31.6H, Mean Corpuscular Hemoglobin Concent 33.5, Red Cell Distribution Width 12.5, Platelet Count 237, Mean Platelet Volume 7.0, Neutrophils (%) (Auto) 52.9, Lymphocytes (% ) (Auto) 37.5, Monocytes (%) (Auto) 7.0, Eosinophils (%) (Auto) 1.8, Basophils ( %) (Auto) 0.9, Sodium Level 143, Potassium Level 4.0, Chloride Level 104, Carbon Dioxide Level 29, Anion Gap 10, Blood Urea Nitrogen 13, Creatinine 1.0, Estimat Glomerular Filtration Rate > 60, Glucose Level 141H, Calcium Level 9.2, Total Bilirubin 0.6, Aspartate Amino Transf (AST/SGOT) 14, Alanine Aminotransferase (ALT/SGPT) 10, Alkaline Phosphatase 45, Total Protein 6.6, Albumin 3.8, Globulin 2.8, Albumin/Globulin Ratio 1.3 Height (Feet): 5 Height (Inches): 7.00 Weight (Pounds): 150 General Appearance: lethargic, confused EENT: normal ENT inspection Neck: normal alignment Cardiovascular: normal peripheral pulses, normal rate, regular rhythm Respiratory/Chest: chest wall non-tender, lungs clear, normal breath sounds Abdomen: normal bowel sounds, non tender, soft Extremities: normal inspection Edema: no edema noted Arm (L), no edema noted Arm (R), no edema noted Leg (L), no edema noted Leg (R), no edema noted Pedal (L), no edema noted Pedal (R), no edema noted Generalized Edema: trace edema, mild edema FABIO GASTELUM Apr 11, 2017 13:09
--- NOTE | 2017-04-11 13:15 | Neurology Progress Note ---
Interim History Interim History ROS Limited/Unobtainable: Yes Complaints: none Events: no sz noted Objective Physical Exam Last Vital Signs Date Time Temp Pulse Resp B/P (MAP) Pulse Ox O2 Delivery O2 Flow Rate FiO2 04/11/17 12:00 83 04/11/17 08:00 96.8 22 105/69 96 Room Air Laboratory Tests Test 04/11/17 07:45 White Blood Count 5.8 K/UL (4.8-10.8) Red Blood Count 3.85 M/UL (4.70-6.10) L Hemoglobin 12.2 G/DL (14.2-18.0) L Hematocrit 36.3 % (42.0-52.0) L Mean Corpuscular Volume 94 FL (80-99) Mean Corpuscular Hemoglobin 31.6 PG (27.0-31.0) H Mean Corpuscular Hemoglobin Concent 33.5 G/DL (32.0-36.0) Red Cell Distribution Width 12.5 % (11.6-14.8) Platelet Count 237 K/UL (150-450) Mean Platelet Volume 7.0 FL (6.5-10.1) Neutrophils (%) (Auto) 52.9 % (45.0-75.0) Lymphocytes (%) (Auto) 37.5 % (20.0-45.0) Monocytes (%) (Auto) 7.0 % (1.0-10.0) Eosinophils (%) (Auto) 1.8 % (0.0-3.0) Basophils (%) (Auto) 0.9 % (0.0-2.0) Sodium Level 143 mEQ/L (135-145) Potassium Level 4.0 mEQ/L (3.4-4.9) Chloride Level 104 mEQ/L (98-107) Carbon Dioxide Level 29 mEQ/L (20-30) Anion Gap 10 (5-15) Blood Urea Nitrogen 13 mg/dL (7-23) Creatinine 1.0 mg/dL (0.7-1.2) Estimat Glomerular Filtration Rate > 60 mL/min (>60) Glucose Level 141 mg/dL (74-106) H Calcium Level 9.2 mg/dL (8.6-10.2) Total Bilirubin 0.6 mg/dL (0.0-1.2) Aspartate Amino Transf (AST/SGOT) 14 U/L (5-40) Alanine Aminotransferase (ALT/SGPT) 10 U/L (3-41) Alkaline Phosphatase 45 U/L (40-129) Total Protein 6.6 g/dL (6.6-8.7) Albumin 3.8 g/dL (3.5-5.2) Globulin 2.8 g/dL Albumin/Globulin Ratio 1.3 (1.0-2.7) General: well developed, well nourished, no acute distress Head: normocophalic, atraumatic Neck: no rigidity Neurologic Exam Mental Status: awake, other - very limited verbal output, confused Speech: other - slurry Language: other - expr aphasia Cranial Nerve II: no papilledema Cranial Nerves III, IV, : pupils Cranial Nerve V: masseters function normal Cranial Nerve VIII: no nystagmus Cranial Nerve IX: gag response Cranial Nerve XI: trapezii function normal Cranial Nerve XII: no tongue atrophy/fasciculations Motor System: other - spastic L side Sensory: normal pinprick Coordination: other Deep Tendon Reflexes: 0 bicep (L), 0 bicep (R), 0 tricep (L), 0 tricep (R), 0 brachioradialis (L), 0 brachioradialis (R), 0 knee (L), 0 knee (R), 0 ankle (L) , 0 ankle (R) Reflexes: extensor plantar (L), extensor plantar (R) Impression/Recommendations Problems: (1) Epileptic seizure, generalized (2) Arterial ischemic stroke, multifocal, mult vascular territories, chron (3) DM (diabetes mellitus) (4) COPD (chronic obstructive pulmonary disease) (5) HTN (hypertension) Status: stable, progressing, tolerating diet Recommendations #[id number] depakote 1000mg bid EEg CT brain noted JAIRO SALAS Apr 11, 2017 13:15
[2017-04-11] MEDS: Valproate Sodium INJ 1,000 MG in D5W 55 ML IV SCH ×2 (13:42→21:11)
[2017-04-11] MEDS: levETIRAcetam 500mg/NS100ml 100 ML IVPB SCH (14:57)
[2017-04-11 16:00] VITALS: BP_SYST 138; BP_SYST 150; BP_DIAS 78; BP_DIAS 79
--- NOTE | 2017-04-11 17:37 | GI Initial Consult Note ---
History of Present Illness General Date patient seen: Apr 11, 2017 Time patient seen: 17:25 Reason for Hospitalization: Seizure Referring physician: FABIO GASTELUM Reason for Consultation: DYSPHAGIA Present Illness HPI The patient is brought in by EMS. He [facility] a [facility] at [facility]. Is a history of seizures. He's on the monitor Ol. The assumption is that he is been getting his medications. The seizure lasted 1 minute. Paramedics transported patient. His blood sugar was 142 in the field. There is no history of trauma aside from oral trauma when he the inside of his mouth during the seizure. The patient is able to vocalize but does not follow commands. He's had a stroke in the past. Review of medication list only reveals lamotrigine for seizures. (Later review of prior hospitalization reveals depakote.) H/O DM H/O paranoid schizophrenia H/O COPD GI Consult for dysphagia. HPI as noted above. ROS limited, patient lethargic possibly due to over medication. Pt seen on floor, asleep NAD with no active s/ sx of N/V/D. Patient presents today with mild anemia and dysphagia. ST evaluation noted patient high risk for aspiration at this time. Unknown history of any endoscopic procedures. Home Meds Active Scripts Methylprednisolone* (MEDROL*) 4 Mg Tablet, 4 MG ORAL DAILY, #10 TAB 0 Refills Prov:Collins (Vanchtein)Sarah TRADE MARKER 07/25/16 Ziprasidone Hcl* (GEODON*) 20 Mg Capsule, 40 MG ORAL DAILY, #1 CAP Prov:Ny Diez TRADE MARKER 09/21/15 Tamsulosin HCl (Flomax) 0.4 Mg Cap, 0.4 MG ORAL BEDTIME, #1 CAP Prov:Ny Diez TRADE MARKER 09/21/15 Lisinopril (LISINOPRIL*) 20 Mg Tablet, 20 MG ORAL DAILY, #1 TAB Prov:Ny Diez TRADE MARKER 09/21/15 Lamotrigine* (LAMICTAL*) 25 Mg Tablet, 25 MG ORAL BID, #1 TAB Prov:Ny Diez TRADE MARKER 09/21/15 Insulin Aspart (Novolog Flexpen) 100 Units/Ml Pen, 0 UNITS SUBQ NOVOTIAC, #1 EA Prov:Ny Diez TRADE MARKER 09/21/15 Acetaminophen* (ACETAMINOPHEN 325MG TABLET*) 325 Mg Tablet, 650 MG ORAL Q6H Y for Mild Pain/Temp > 100.5, #1 TAB Prov:Ny Diez TRADE MARKER 09/21/15 Reported Medications [Insulin Nph] No Conflict Check, 6 UNITS SUBQ EVENING 04/10/17 [Insulin Nph] No Conflict Check, 12 UNITS SUBQ MORNING 04/10/17 Glucagon (Glucagen) 1 Mg/1 Ml Vial, 1 MG IM PRN Y for Hypoglycemia, VIAL 04/10/17 Na Phos,M-B/Na Phos,Di-Ba* (FLEET ENEMA*) 133 Ml Enema, 133 ML RECTAL DAILY Y for Constipation, ML 0 Refills 04/10/17 Bisacodyl (DULCOLAX) 10 Mg Supp.rect, 10 MG RC DAILY Y for Constipation, SUPP 04/10/17 [Dextrose Powder] No Conflict Check, 15 GM PO PRN Y for Hypoglycemia 04/10/17 Docusate Sodium* (COLACE*) 100 Mg Capsule, 100 MG ORAL DAILY, CAP 04/10/17 Theophylline (THEODUR*) 100 Mg Tab.er.12h, 100 MG ORAL Q12HR, TAB 0 Refills 07/24/16 Temazepam (TEMAZEPAM*) 15 Mg Capsule, 15 MG ORAL BEDTIME Y for PRN INSOMNIA, CAP 0 Refills 07/24/16 Saline (Sodium Chloride) 2.5 Ml Syringe, 10 ML IVF Q8HR Y for LINE FLUSH, SYR 07/24/16 Nitroglycerin (NITROGLYCERIN) 0.4 Mg Tab.subl, 0.4 MG SL Q5MIN X 3 DOSES PRN Y for Prn Chest Pain, TAB 07/24/16 Ipratropium [place] 0.5MG/2.5ML (IPRATROPIUM BROMIDE 0.5MG/2.5ML) 0.2 Mg/1 Ml Solution, 0.5 MG HHN Q4HR Y for Shortness of Breath, EA 07/24/16 Doxycycline Hyclate* (VIBRAMYCIN*) 100 Mg Capsule, 100 MG ORAL EVERY 12 HOURS, CAP 0 Refills 07/24/16 Codeine/Promethazine Hcl* (PROMETHAZINE-CODEINE SYRUP*) 118 Ml Syrup, 5 ML ORAL Q6H Y for For Cough, ML 0 Refills 07/24/16 Clonidine Hcl* (CATAPRES*) 0.1 Mg Tablet, 0.1 MG ORAL EVERY 4 HOURS Y for PRN, TAB SBP >160 07/24/16 Atorvastatin Calcium* (ATORVASTATIN CALCIUM*) 40 Mg Tablet, 80 MG ORAL BEDTIME, TAB 07/24/16 Divalproex Sodium* (DEPAKOTE ER*) 500 Mg Tab.er.24h, 500 MG ORAL EVERY 12 HOURS , TAB 07/20/16 Heparin Sod (Porcine) (HEPARIN SODIUM*) 5 000/1 Ml Vial, 5000 UNITS SUBQ EVERY 12 HOURS, VIAL 05/20/16 Olanzapine* (ZYPREXA*) 2.5 Mg Tablet, 2.5 MG ORAL Q12HR, TAB 0 Refills 05/18/16 Buspirone Hcl* (BUSPAR*) 10 Mg Tablet, 5 MG ORAL BID, #15 TAB 0 Refills 05/18/16 Finasteride* (PROSCAR*) 5 Mg Tablet, 5 MG ORAL DAILY, #30 TAB 0 Refills 05/18/16 Med list reviewed/reconciled: Yes Allergies: Coded Allergies: No Known Allergies (Unverified , 01/05/13) Patient History Limited by: medical condition History Provided By: Medical Record PMH Narrative Limited by: medical condition Past Medical History: see triage record, old chart reviewed Social History: Denies: smoking, alcohol use, drug use Social History Narrative SNF Reviewed Nursing Documentation: PMH: Agreed, PSxH: Agreed Nursing Documentation-PMH Hx Cardiac Problems: Yes - CHF Hx Hypertension: Yes Hx Diabetes: Yes Hx Cancer: No Hx Gastrointestinal Problems: No Hx Neurological Problems: Yes - CVA, Dysphagia, epilepsy Hx Cerebrovascular Accident: Yes Hx Seizures: Yes Hx Epilepsy: Yes Hx Dysphasia: Yes Review of Systems All Other Systems: limited Physical Exam Vital Signs Date Time Temp Pulse Resp B/P (MAP) Pulse Ox O2 Delivery O2 Flow Rate FiO2 04/10/17 11:16 97.7 92 20 164/92 95 Room Air Sp02 EP Interpretation: reviewed Labs Laboratory Tests Test 04/11/17 07:45 White Blood Count 5.8 K/UL (4.8-10.8) Red Blood Count 3.85 M/UL (4.70-6.10) L Hemoglobin 12.2 G/DL (14.2-18.0) L Hematocrit 36.3 % (42.0-52.0) L Mean Corpuscular Volume 94 FL (80-99) Mean Corpuscular Hemoglobin 31.6 PG (27.0-31.0) H Mean Corpuscular Hemoglobin Concent 33.5 G/DL (32.0-36.0) Red Cell Distribution Width 12.5 % (11.6-14.8) Platelet Count 237 K/UL (150-450) Mean Platelet Volume 7.0 FL (6.5-10.1) Neutrophils (%) (Auto) 52.9 % (45.0-75.0) Lymphocytes (%) (Auto) 37.5 % (20.0-45.0) Monocytes (%) (Auto) 7.0 % (1.0-10.0) Eosinophils (%) (Auto) 1.8 % (0.0-3.0) Basophils (%) (Auto) 0.9 % (0.0-2.0) Sodium Level 143 mEQ/L (135-145) Potassium Level 4.0 mEQ/L (3.4-4.9) Chloride Level 104 mEQ/L (98-107) Carbon Dioxide Level 29 mEQ/L (20-30) Anion Gap 10 (5-15) Blood Urea Nitrogen 13 mg/dL (7-23) Creatinine 1.0 mg/dL (0.7-1.2) Estimat Glomerular Filtration Rate > 60 mL/min (>60) Glucose Level 141 mg/dL (74-106) H Calcium Level 9.2 mg/dL (8.6-10.2) Total Bilirubin 0.6 mg/dL (0.0-1.2) Aspartate Amino Transf (AST/SGOT) 14 U/L (5-40) Alanine Aminotransferase (ALT/SGPT) 10 U/L (3-41) Alkaline Phosphatase 45 U/L (40-129) Total Protein 6.6 g/dL (6.6-8.7) Albumin 3.8 g/dL (3.5-5.2) Globulin 2.8 g/dL Albumin/Globulin Ratio 1.3 (1.0-2.7) General Appearance: no apparent distress, lethargic Head: normocephalic EENT: PERRL/EOMI, normal ENT inspection Neck: supple Respiratory: normal breath sounds, no respiratory distress Cardiovascular: normal rate Gastrointestinal: normal inspection, non tender, soft Skin: normal inspection, normal color, no rash, warm/dry Lymphatic: normal inspection, no adenopathy Current Medications Current Medications Medications (Trade) Dose Ordered Sig/Kun Route PRN Reason Start Time Stop Time Status Last Admin Dose Admin Acetaminophen (Tylenol) 650 mg Q4H PRN ORAL T>100.5 04/10/17 15:45 05/10/17 15:44 Al Hydroxide/Mg Hydroxide (Mylanta II) 30 ml Q6H PRN ORAL dyspepsia 04/10/17 15:45 05/10/17 15:44 Buspirone HCl (Buspar) 5 mg BID ORAL 04/10/17 18:00 05/10/17 17:59 04/10/17 17:01 Clonidine HCl (Catapres) 0.1 mg Q4H PRN ORAL SBP>160 mmHg 04/10/17 15:45 05/10/17 15:44 Dextrose (Dextrose 50%) STAT PRN IV Hypoglycemia 04/10/17 15:45 05/10/17 15:44 Finasteride (Proscar) 5 mg DAILY ORAL 04/11/17 09:00 05/11/17 08:59 Heparin Sodium (Porcine) (Heparin 5000 units/ml) 5,000 units EVERY 12 HOURS SUBQ 04/10/17 21:00 05/10/17 20:59 04/11/17 10:18 Insulin Aspart (NovoLOG) BEFORE MEALS AND HS SUBQ 04/10/17 17:30 05/10/17 17:29 04/11/17 06:39 Levetiracetam 100 ml @ 400 mls/hr Q12H IVPB 04/11/17 14:30 05/11/17 14:29 04/11/17 14:57 Lisinopril (Prinivil) 20 mg DAILY ORAL 04/11/17 09:00 05/11/17 08:59 Lorazepam (Ativan 2mg/ml 1ml) 2 mg EVERY HOUR PRN IV seizures 04/10/17 17:00 04/17/17 16:59 04/10/17 21:27 Lorazepam (Ativan 2mg/ml 1ml) 2 mg Q4H PRN IV Agitation 04/11/17 10:45 04/18/17 10:44 04/11/17 11:19 Morphine Sulfate (Morphine Sulfate) 1 mg Q4H PRN IVP PAIN 4-10 04/10/17 15:45 04/17/17 15:44 Olanzapine (ZyPREXA) 2.5 mg Q12HR ORAL 04/10/17 21:00 05/10/17 20:59 04/10/17 21:17 Ondansetron HCl (Zofran) 4 mg Q6H PRN IVP Nausea & Vomiting 04/10/17 17:00 05/10/17 16:59 Polyethylene Glycol (Miralax) 17 gm HSPRN PRN ORAL Constipation 04/10/17 15:45 05/10/17 15:44 Tamsulosin HCl (Flomax) 0.4 mg BEDTIME ORAL 04/10/17 21:00 05/10/17 20:59 04/10/17 21:17 Theophylline (John-Dur) 100 mg Q12HR ORAL 04/10/17 21:00 05/10/17 20:59 04/10/17 21:17 Valproate Sodium 1000 mg/Dextrose 65 ml @ 32.5 mls/hr Q12HR IV 04/11/17 13:00 05/11/17 12:59 04/11/17 13:42 Ziprasidone (Geodon) 40 mg DAILY ORAL 04/11/17 09:00 05/11/17 08:59 Zolpidem Tartrate (Ambien) 5 mg HSPRN PRN ORAL Insomnia 04/10/17 21:00 04/17/17 20:59 GI: Plan Problems: (1) Dysphagia (2) Encounter for PEG (percutaneous endoscopic gastrostomy) (3) Anemia (4) Encephalopathy (5) DM (diabetes mellitus) Plan hold off PEG placement at this time ST will reassess tomorrow when more alert and awake >> patient may have been overmedicated. monitor H&H H2B prophylaxis DM mgmt fu labs Discussed with Dr. Stephens. Thank you for referring this patient, we will follow. Tara Muñiz N.P. Apr 11, 2017 17:36
--- NOTE | 2017-04-11 18:03 | Cardiology Report ---
APPROVED REPORT EKG Measurement Heart [id number] Normal sinus rhythm Left axis deviation Right bundle branch block Abnormal ECG
[2017-04-11 20:00] VITALS: BP 138/81
[2017-04-11] MEDS: Tamsulosin 0.4mg cap ORAL SCH (21:00)
[2017-04-11] MEDS ORDERED: levETIRAcetam 500mg/NS100ml 100 ML IVPB SCH (21:00)
--- NOTE | 2017-04-11 22:45 | Infectious Diseases Prog Note ---
Assessment/Plan Problems: (1) Epileptic seizure, generalized Assessment & Plan: with no infectious etiology, controlled on seizure meds, neurology is following (2) DM (diabetes mellitus) Assessment & Plan: recommend tight glycemic control to keep blood glucose less that 120 fasting and less than 130 pre meals (3) COPD (chronic obstructive pulmonary disease) Assessment & Plan: continue inhalers and oxygen therapy (4) HTN (hypertension) Assessment & Plan: continue meds , keep blood pressure less than 140/90 Subjective Allergies: Coded Allergies: No Known Allergies (Unverified , 01/05/13) Objective Vital Signs Last 24 Hour Vital Signs Date Time Temp Pulse Resp B/P (MAP) Pulse Ox O2 Delivery O2 Flow Rate FiO2 04/11/17 20:00 97.5 61 20 138/81 96 04/11/17 16:00 97.2 80 22 138/79 95 Room Air 04/11/17 16:00 78 04/11/17 12:00 83 04/11/17 12:00 96.9 85 21 129/78 95 Room Air 04/11/17 08:00 96.8 67 22 105/69 96 Room Air 04/11/17 08:00 74 04/11/17 04:00 97.4 70 18 121/75 96 Room Air 04/11/17 04:00 71 04/11/17 00:00 97.9 73 18 130/85 95 Room Air 04/11/17 00:00 78 Height (Feet): 5 Height (Inches): 7.00 Weight (Pounds): 150 Laboratory Tests Test 04/11/17 07:45 White Blood Count 5.8 K/UL (4.8-10.8) Red Blood Count 3.85 M/UL (4.70-6.10) L Hemoglobin 12.2 G/DL (14.2-18.0) L Hematocrit 36.3 % (42.0-52.0) L Mean Corpuscular Volume 94 FL (80-99) Mean Corpuscular Hemoglobin 31.6 PG (27.0-31.0) H Mean Corpuscular Hemoglobin Concent 33.5 G/DL (32.0-36.0) Red Cell Distribution Width 12.5 % (11.6-14.8) Platelet Count 237 K/UL (150-450) Mean Platelet Volume 7.0 FL (6.5-10.1) Neutrophils (%) (Auto) 52.9 % (45.0-75.0) Lymphocytes (%) (Auto) 37.5 % (20.0-45.0) Monocytes (%) (Auto) 7.0 % (1.0-10.0) Eosinophils (%) (Auto) 1.8 % (0.0-3.0) Basophils (%) (Auto) 0.9 % (0.0-2.0) Sodium Level 143 mEQ/L (135-145) Potassium Level 4.0 mEQ/L (3.4-4.9) Chloride Level 104 mEQ/L (98-107) Carbon Dioxide Level 29 mEQ/L (20-30) Anion Gap 10 (5-15) Blood Urea Nitrogen 13 mg/dL (7-23) Creatinine 1.0 mg/dL (0.7-1.2) Estimat Glomerular Filtration Rate > 60 mL/min (>60) Glucose Level 141 mg/dL (74-106) H Calcium Level 9.2 mg/dL (8.6-10.2) Total Bilirubin 0.6 mg/dL (0.0-1.2) Aspartate Amino Transf (AST/SGOT) 14 U/L (5-40) Alanine Aminotransferase (ALT/SGPT) 10 U/L (3-41) Alkaline Phosphatase 45 U/L (40-129) Total Protein 6.6 g/dL (6.6-8.7) Albumin 3.8 g/dL (3.5-5.2) Globulin 2.8 g/dL Albumin/Globulin Ratio 1.3 (1.0-2.7) Current Medications Medications (Trade) Dose Ordered Sig/Kun Route PRN Reason Start Time Stop Time Status Last Admin Dose Admin Acetaminophen (Tylenol) 650 mg Q4H PRN ORAL T>100.5 04/10/17 15:45 05/10/17 15:44 Al Hydroxide/Mg Hydroxide (Mylanta II) 30 ml Q6H PRN ORAL dyspepsia 04/10/17 15:45 05/10/17 15:44 Buspirone HCl (Buspar) 5 mg BID ORAL 04/10/17 18:00 05/10/17 17:59 04/10/17 17:01 Clonidine HCl (Catapres) 0.1 mg Q4H PRN ORAL SBP>160 mmHg 04/10/17 15:45 05/10/17 15:44 Dextrose (Dextrose 50%) STAT PRN IV Hypoglycemia 04/10/17 15:45 05/10/17 15:44 Finasteride (Proscar) 5 mg DAILY ORAL 04/11/17 09:00 05/11/17 08:59 Heparin Sodium (Porcine) (Heparin 5000 units/ml) 5,000 units EVERY 12 HOURS SUBQ 04/10/17 21:00 05/10/17 20:59 04/11/17 21:20 Insulin Aspart (NovoLOG) BEFORE MEALS AND HS SUBQ 04/10/17 17:30 05/10/17 17:29 04/11/17 06:39 Levetiracetam 100 ml @ 400 mls/hr Q12H IVPB 04/11/17 14:30 05/11/17 14:29 04/11/17 14:57 Lisinopril (Prinivil) 20 mg DAILY ORAL 04/11/17 09:00 05/11/17 08:59 Lorazepam (Ativan 2mg/ml 1ml) 2 mg EVERY HOUR PRN IV seizures 04/10/17 17:00 04/17/17 16:59 04/10/17 21:27 Lorazepam (Ativan 2mg/ml 1ml) 2 mg Q4H PRN IV Agitation 04/11/17 10:45 04/18/17 10:44 04/11/17 11:19 Morphine Sulfate (Morphine Sulfate) 1 mg Q4H PRN IVP PAIN 4-10 04/10/17 15:45 04/17/17 15:44 Olanzapine (ZyPREXA) 2.5 mg Q12HR ORAL 04/10/17 21:00 05/10/17 20:59 04/10/17 21:17 Ondansetron HCl (Zofran) 4 mg Q6H PRN IVP Nausea & Vomiting 04/10/17 17:00 05/10/17 16:59 Polyethylene Glycol (Miralax) 17 gm HSPRN PRN ORAL Constipation 04/10/17 15:45 05/10/17 15:44 Ranitidine HCl (Zantac) 150 mg BEDTIME ORAL 04/11/17 21:00 05/11/17 20:59 Tamsulosin HCl (Flomax) 0.4 mg BEDTIME ORAL 04/10/17 21:00 05/10/17 20:59 04/10/17 21:17 Theophylline (John-Dur) 100 mg Q12HR ORAL 04/10/17 21:00 05/10/17 20:59 04/10/17 21:17 Valproate Sodium 1000 mg/Dextrose 65 ml @ 32.5 mls/hr Q12HR IV 04/11/17 13:00 05/11/17 12:59 04/11/17 21:11 Ziprasidone (Geodon) 40 mg DAILY ORAL 04/11/17 09:00 05/11/17 08:59 Zolpidem Tartrate (Ambien) 5 mg HSPRN PRN ORAL Insomnia 04/10/17 21:00 04/17/17 20:59 Marcus Mobley M.D. Apr 11, 2017 22:45
[2017-04-12] VITALS: BP 152/87
[2017-04-12] MEDS: levETIRAcetam 500mg/NS100ml 100 ML IVPB SCH ×2 (02:13→15:35)
[2017-04-12 04:00] VITALS: BP 141/84
[2017-04-12] MEDS: NovoLOG Insulin Flexpen SUBQ SCH ×4 (06:28→21:04)
[2017-04-12 08:16] VITALS: BP 164/94
--- NOTE | 2017-04-12 08:47 | Electroencephalogram ---
DATE OF PROCEDURE: 04/10/2017 ELECTROENCEPHALOGRAPHY REPORT REQUESTING PHYSICIAN: Nura Carter D.O. 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 TECHNIQUE: EEG was done using 18 electrodes placed scalp to scalp, scalp to ear montages according to 10/20 International System. During the recording, the patient was awake or drowsy, but very difficult behavior, become agitated, restless, was given sedation with 2 mg of Ativan, which did not affect his agitation. Background activity in the most wakeful portions consists of poorly regulated mixture of 4 to 6 cycles per second theta activities with intermittent appearance of delta transients predominantly right frontal central region, occasional in the left temporal region. There was significant amount of EMG and movement artifact obscuring this recording. No paroxysmal activities noted during the recording. The patient pulled out some electrodes, to be replaced. He was continuously moving with his head side to side. IMPRESSION: Abnormal EEG presenting with generalized slowing, intermittent delta wave transients predominantly right frontal central region. COMMENT: Above abnormality indicate presence of global cerebral dysfunction, which may relate to underlying toxic metabolic derangement or multiple sites of structural lesion. More significant slowing in the right frontal central region may indicate underlying significant structural abnormality. Absence of paroxysmal seizure activities does not rule out seizure disorder. Brandon Bui M.D. DR: WARD JOB#: [id number] CC: MASON
[2017-04-12] MEDS: OLANZapine 2.5mg tab ORAL SCH ×2 (09:00→20:53)
[2017-04-12] MEDS ORDERED: Haloperidol Decanoate 50mg Inj IM ONE (09:00)
[2017-04-12] MEDS: Theophylline ER 100mg ORAL SCH ×2 (09:00→20:53)
[2017-04-12] MEDS: Lisinopril 20mg tab ORAL SCH (09:00)
[2017-04-12] MEDS: BusPIRone 5mg Tab ORAL SCH ×2 (09:00→17:30)
[2017-04-12] MEDS: Ziprasidone 20mg cap ORAL SCH (09:00)
[2017-04-12] MEDS: Heparin 5000 units/ml inj SUBQ SCH ×2 (09:56→20:55)
[2017-04-12 10:14] LABS: BASOPHILS % (AUTO) 0.8 % (0.0-2.0); EOSINOPHILS % (AUTO) 1.3 % (0.0-3.0); LYMPHOCYTES % (AUTO) 27.7 % (20.0-45.0); MEAN CORPUSCULAR HEMOGLOBIN 30.9 PG (27.0-31.0); MEAN CORPUSCULAR HGB CONC 32.7 G/DL (32.0-36.0); MEAN CORPUSCULAR VOLUME 95 FL (80-99); MEAN PLATELET VOLUME 7.3 FL (6.5-10.1); MONOCYTES % (AUTO) 5.4 % (1.0-10.0); NEUTROPHILS % (AUTO) 64.8 % (45.0-75.0); PLATELET COUNT 229 K/UL (150-450); RED BLOOD COUNT 4.66 M/UL (4.70-6.10); RED CELL DISTRIBUTION WIDTH 12.4 % (11.6-14.8); WHITE BLOOD COUNT 6.2 K/UL (4.8-10.8)
--- NOTE | 2017-04-12 10:24 | GI Progress Note ---
Assessment/Plan Problems: (1) Encounter for PEG (percutaneous endoscopic gastrostomy) ICD Codes: Z43.1 - Encounter for attention to gastrostomy SNOMED: 613987794, 398499396 (2) Dysphagia ICD Codes: R13.10 - Dysphagia, unspecified SNOMED: 23254310, 622502824 (3) Anemia ICD Codes: D64.9 - Anemia, unspecified SNOMED: 157559051 (4) Encephalopathy ICD Codes: G93.40 - Encephalopathy, unspecified SNOMED: 25088485 (5) DM (diabetes mellitus) ICD Codes: E11.9 - Diabetes mellitus SNOMED: 76078201 Qualifiers: Qualified Codes: E10.8 - Type 1 diabetes mellitus with unspecified complications Status: unchanged Status Narrative Discussed with Dr. Stephens. Assessment/Plan hold off PEG placement at this time fu ST evaluation when patient more alert monitor H&H H2B prophylaxis DM mgmt fu labs Subjective Subjective limited Objective Last 24 Hour Vital Signs Date Time Temp Pulse Resp B/P (MAP) Pulse Ox O2 Delivery O2 Flow Rate FiO2 04/12/17 08:16 96.3 74 20 164/94 100 Room Air 04/12/17 04:00 97.0 59 20 141/84 99 Room Air 04/12/17 00:00 97.0 65 20 152/87 97 Room Air 04/11/17 20:00 97.5 61 20 138/81 96 04/11/17 16:00 97.2 80 22 138/79 95 Room Air 04/11/17 16:00 78 04/11/17 12:00 83 04/11/17 12:00 96.9 85 21 129/78 95 Room Air Intake and Output 04/12/17 04/13/17 19:00 07:00 # Voids 1 Laboratory Tests Test 04/12/17 09:40 White Blood Count 6.2 K/UL (4.8-10.8) Red Blood Count 4.66 M/UL (4.70-6.10) L Hemoglobin 14.4 G/DL (14.2-18.0) Hematocrit 44.0 % (42.0-52.0) Mean Corpuscular Volume 95 FL (80-99) Mean Corpuscular Hemoglobin 30.9 PG (27.0-31.0) Mean Corpuscular Hemoglobin Concent 32.7 G/DL (32.0-36.0) Red Cell Distribution Width 12.4 % (11.6-14.8) Platelet Count 229 K/UL (150-450) Mean Platelet Volume 7.3 FL (6.5-10.1) Neutrophils (%) (Auto) 64.8 % (45.0-75.0) Lymphocytes (%) (Auto) 27.7 % (20.0-45.0) Monocytes (%) (Auto) 5.4 % (1.0-10.0) Eosinophils (%) (Auto) 1.3 % (0.0-3.0) Basophils (%) (Auto) 0.8 % (0.0-2.0) Sodium Level Pending Potassium Level Pending Chloride Level Pending Carbon Dioxide Level Pending Blood Urea Nitrogen Pending Creatinine Pending Estimat Glomerular Filtration Rate Pending Glucose Level Pending Calcium Level Pending Phosphorus Level Pending Magnesium Level Pending Height (Feet): 5 Height (Inches): 7.00 Weight (Pounds): 150 General Appearance: lethargic, thin, other - sleepy Cardiovascular: normal rate Respiratory/Chest: no respiratory distress Abdominal Exam: normal bowel sounds, non tender, soft Tara Muñiz N.P. Apr 12, 2017 10:24
[2017-04-12 10:30] LABS: ANION GAP 10 (5-15); CALCIUM 9.7 mg/dL (8.6-10.2); CARBON DIOXIDE 30 mEQ/L (20-30); CHLORIDE 100 mEQ/L (98-107); CREATININE 0.9 mg/dL (0.7-1.2); GLOMERULAR FILTRATION RATE > 60 mL/min (>60); HEMOLYSIS 2; POTASSIUM 3.9 mEQ/L (3.4-4.9); SODIUM 140 mEQ/L (135-145)
[2017-04-12] MEDS: Valproate Sodium INJ 1,000 MG in D5W 55 ML IV SCH ×2 (10:34→20:53)
[2017-04-12 10:41] LABS: MAGNESIUM 1.7 mg/dL (1.7-2.5); PHOSPHORUS 3.9 mg/dL (2.5-4.8)
[2017-04-12 11:23] VITALS: BP 140/92
--- NOTE | 2017-04-12 13:14 | Pulmonology Progress Note ---
Assessment/Plan Problems: (1) Uncontrolled seizures (2) COPD (chronic obstructive pulmonary disease) (3) DM (diabetes mellitus) (4) Status post CVA (5) HTN (hypertension) Assessment/Plan no more seizures refusing telemetry swallow study pending aspiration precaution sliding scale dvt propylaxis med/surg Subjective ROS Limited/Unobtainable: No Interval Events: refusing telemetry Constitutional: Reports: no symptoms Respiratory: Reports: no symptoms Cardiovascular: Reports: no symptoms Allergies: Coded Allergies: No Known Allergies (Unverified , 01/05/13) Objective Last 24 Hour Vital Signs Date Time Temp Pulse Resp B/P (MAP) Pulse Ox O2 Delivery O2 Flow Rate FiO2 04/12/17 11:23 96.2 61 20 140/92 99 Room Air 04/12/17 08:16 96.3 74 20 164/94 100 Room Air 04/12/17 04:00 97.0 59 20 141/84 99 Room Air 04/12/17 00:00 97.0 65 20 152/87 97 Room Air 04/11/17 20:00 97.5 61 20 138/81 96 04/11/17 16:00 97.2 80 22 138/79 95 Room Air 04/11/17 16:00 78 Intake and Output 04/12/17 04/13/17 19:00 07:00 # Voids 1 General Appearance: WD/WN HEENT: normocephalic Respiratory/Chest: chest wall non-tender, lungs clear Cardiovascular: normal peripheral pulses, normal rate Abdomen: normal bowel sounds, soft, non tender Extremities: no cyanosis Skin: no rash, no ulcers Microbiology Date/Time Source Procedure Growth Status 04/10/17 12:40 Nasal Nares MRSA Culture - Final NO METHICILLIN RESISTANT STAPH AUREUS... Complete 04/10/17 12:40 Rectum VRE Culture - Final NO VANCOMYCIN RESISTANT ENTEROCOCCUS ... Complete Laboratory Tests 04/12/17 09:40: White Blood Count 6.2, Red Blood Count 4.66L, Hemoglobin 14.4, Hematocrit 44.0, Mean Corpuscular Volume 95, Mean Corpuscular Hemoglobin 30.9, Mean Corpuscular Hemoglobin Concent 32.7, Red Cell Distribution Width 12.4, Platelet Count 229, Mean Platelet Volume 7.3, Neutrophils (%) (Auto) 64.8, Lymphocytes (%) (Auto) 27.7, Monocytes (%) (Auto) 5.4, Eosinophils (%) (Auto) 1.3, Basophils (%) (Auto ) 0.8, Sodium Level 140, Potassium Level 3.9, Chloride Level 100, Carbon Dioxide Level 30, Anion Gap 10, Blood Urea Nitrogen 14, Creatinine 0.9, Estimat Glomerular Filtration Rate > 60, Glucose Level 141H, Calcium Level 9.7, Phosphorus Level 3.9, Magnesium Level 1.7 Current Medications Medications (Trade) Dose Ordered Sig/Kun Route PRN Reason Start Time Stop Time Status Last Admin Dose Admin Acetaminophen (Tylenol) 650 mg Q4H PRN ORAL T>100.5 04/10/17 15:45 05/10/17 15:44 Al Hydroxide/Mg Hydroxide (Mylanta II) 30 ml Q6H PRN ORAL dyspepsia 04/10/17 15:45 05/10/17 15:44 Buspirone HCl (Buspar) 5 mg BID ORAL 04/10/17 18:00 05/10/17 17:59 04/10/17 17:01 Clonidine HCl (Catapres) 0.1 mg Q4H PRN ORAL SBP>160 mmHg 04/10/17 15:45 05/10/17 15:44 Dextrose (Dextrose 50%) STAT PRN IV Hypoglycemia 04/10/17 15:45 05/10/17 15:44 Finasteride (Proscar) 5 mg DAILY ORAL 04/11/17 09:00 05/11/17 08:59 Heparin Sodium (Porcine) (Heparin 5000 units/ml) 5,000 units EVERY 12 HOURS SUBQ 04/10/17 21:00 05/10/17 20:59 04/12/17 09:56 Insulin Aspart (NovoLOG) BEFORE MEALS AND HS SUBQ 04/10/17 17:30 05/10/17 17:29 04/11/17 06:39 Levetiracetam 100 ml @ 400 mls/hr Q12H IVPB 04/11/17 14:30 05/11/17 14:29 04/12/17 02:13 Lisinopril (Prinivil) 20 mg DAILY ORAL 04/11/17 09:00 05/11/17 08:59 Lorazepam (Ativan 2mg/ml 1ml) 2 mg EVERY HOUR PRN IV seizures 04/10/17 17:00 04/17/17 16:59 04/10/17 21:27 Lorazepam (Ativan 2mg/ml 1ml) 2 mg Q4H PRN IV Agitation 04/11/17 10:45 04/18/17 10:44 04/11/17 11:19 Morphine Sulfate (Morphine Sulfate) 1 mg Q4H PRN IVP PAIN 4-10 04/10/17 15:45 04/17/17 15:44 Olanzapine (ZyPREXA) 2.5 mg Q12HR ORAL 04/10/17 21:00 05/10/17 20:59 04/10/17 21:17 Ondansetron HCl (Zofran) 4 mg Q6H PRN IVP Nausea & Vomiting 04/10/17 17:00 05/10/17 16:59 Polyethylene Glycol (Miralax) 17 gm HSPRN PRN ORAL Constipation 04/10/17 15:45 05/10/17 15:44 Ranitidine HCl (Zantac) 150 mg BEDTIME ORAL 04/11/17 21:00 05/11/17 20:59 Tamsulosin HCl (Flomax) 0.4 mg BEDTIME ORAL 04/10/17 21:00 05/10/17 20:59 04/10/17 21:17 Theophylline (John-Dur) 100 mg Q12HR ORAL 04/10/17 21:00 05/10/17 20:59 04/10/17 21:17 Valproate Sodium 1000 mg/Dextrose 65 ml @ 32.5 mls/hr Q12HR IV 04/11/17 13:00 05/11/17 12:59 04/12/17 10:34 Ziprasidone (Geodon) 40 mg DAILY ORAL 04/11/17 09:00 05/11/17 08:59 Zolpidem Tartrate (Ambien) 5 mg HSPRN PRN ORAL Insomnia 04/10/17 21:00 04/17/17 20:59 MICHELLE POLLARD Apr 12, 2017 13:14
--- NOTE | 2017-04-12 13:47 | General Progress Note ---
Assessment/Plan Problem List: (1) Acute CVA (cerebrovascular accident) ICD Codes: I63.9 - Acute CVA (cerebrovascular accident) SNOMED: 784148095 (2) Seizure disorder ICD Codes: G40.909 - Seizure disorder SNOMED: 205163658 (3) Encephalopathy ICD Codes: G93.40 - Encephalopathy, unspecified SNOMED: 32463307 (4) COPD with acute exacerbation ICD Codes: J44.1 - Chronic obstructive pulmonary disease with (acute) exacerbation SNOMED: 379637214 (5) DM (diabetes mellitus) ICD Codes: E11.9 - Diabetes mellitus SNOMED: 61107604 Qualifiers: Qualified Codes: E10.8 - Type 1 diabetes mellitus with unspecified complications (6) Altered level of consciousness ICD Codes: R40.4 - Transient alteration of awareness SNOMED: 1706484 (7) HTN (hypertension) ICD Codes: I10 - Hypertension SNOMED: 10300347 Status: unchanged Assessment/Plan seizure control ot pt diet cbc bmp am ltach transfer Subjective Constitutional: Reports: weakness Allergies: Coded Allergies: No Known Allergies (Unverified , 01/05/13) All Systems: reviewed and negative except above Subjective calm confused in bed Objective Last 24 Hour Vital Signs Date Time Temp Pulse Resp B/P (MAP) Pulse Ox O2 Delivery O2 Flow Rate FiO2 04/12/17 12:00 58 04/12/17 11:23 96.2 61 20 140/92 99 Room Air 04/12/17 09:16 60 04/12/17 08:16 96.3 74 20 164/94 100 Room Air 04/12/17 04:00 97.0 59 20 141/84 99 Room Air 04/12/17 00:00 97.0 65 20 152/87 97 Room Air 04/11/17 20:00 97.5 61 20 138/81 96 04/11/17 16:00 97.2 80 22 138/79 95 Room Air 04/11/17 16:00 78 Intake and Output 04/12/17 04/13/17 19:00 07:00 # Voids 1 Laboratory Tests 04/12/17 09:40: White Blood Count 6.2, Red Blood Count 4.66L, Hemoglobin 14.4, Hematocrit 44.0, Mean Corpuscular Volume 95, Mean Corpuscular Hemoglobin 30.9, Mean Corpuscular Hemoglobin Concent 32.7, Red Cell Distribution Width 12.4, Platelet Count 229, Mean Platelet Volume 7.3, Neutrophils (%) (Auto) 64.8, Lymphocytes (%) (Auto) 27.7, Monocytes (%) (Auto) 5.4, Eosinophils (%) (Auto) 1.3, Basophils (%) (Auto ) 0.8, Sodium Level 140, Potassium Level 3.9, Chloride Level 100, Carbon Dioxide Level 30, Anion Gap 10, Blood Urea Nitrogen 14, Creatinine 0.9, Estimat Glomerular Filtration Rate > 60, Glucose Level 141H, Calcium Level 9.7, Phosphorus Level 3.9, Magnesium Level 1.7 Height (Feet): 5 Height (Inches): 7.00 Weight (Pounds): 150 General Appearance: lethargic, confused EENT: normal ENT inspection Neck: normal alignment Cardiovascular: normal peripheral pulses, normal rate, regular rhythm Respiratory/Chest: chest wall non-tender, lungs clear, normal breath sounds Abdomen: normal bowel sounds, non tender, soft Extremities: normal inspection Edema: no edema noted Arm (L), no edema noted Arm (R), no edema noted Leg (L), no edema noted Leg (R), no edema noted Pedal (L), no edema noted Pedal (R), no edema noted Generalized Neurologic: motor weakness Skin: normal pigmentation, warm/dry FABIO GASTELUM Apr 12, 2017 13:46
--- NOTE | 2017-04-12 14:54 | Infectious Diseases Prog Note ---
Assessment/Plan Problems: (1) Epileptic seizure, generalized Assessment & Plan: no evidence of infection to explain his seizure , now controlled on seizure meds, neurology is following, will monitor labs and vitals (2) DM (diabetes mellitus) Assessment & Plan: recommend tight glycemic control to keep blood glucose less that 120 fasting and less than 130 pre meals (3) COPD (chronic obstructive pulmonary disease) Assessment & Plan: continue inhalers and oxygen therapy (4) HTN (hypertension) Assessment & Plan: continue meds , keep blood pressure less than 140/90 Subjective ROS Limited/Unobtainable: Yes Allergies: Coded Allergies: No Known Allergies (Unverified , 01/05/13) Subjective he was awake and alert, no seizure activity, no fever or chills , no cough or SOB Objective Vital Signs Last 24 Hour Vital Signs Date Time Temp Pulse Resp B/P (MAP) Pulse Ox O2 Delivery O2 Flow Rate FiO2 04/12/17 12:00 58 04/12/17 11:23 96.2 61 20 140/92 99 Room Air 04/12/17 09:16 60 04/12/17 08:16 96.3 74 20 164/94 100 Room Air 04/12/17 04:00 97.0 59 20 141/84 99 Room Air 04/12/17 00:00 97.0 65 20 152/87 97 Room Air 04/11/17 20:00 97.5 61 20 138/81 96 04/11/17 16:00 97.2 80 22 138/79 95 Room Air 04/11/17 16:00 78 Height (Feet): 5 Height (Inches): 7.00 Weight (Pounds): 150 General Appearance: WD/WN, no acute distress HEENT: normocephalic, atraumatic, anicteric, mucous membranes moist, PERRL, EOMI, pharynx normal, supple, no JVD Respiratory/Chest: chest wall non-tender, lungs clear, normal breath sounds, no respiratory distress, no accessory muscle use Cardiovascular: normal peripheral pulses, normal rate, regular rhythm, no gallop/murmur, no JVD Abdomen: normal bowel sounds, soft, non tender, no organomegaly, non distended , no mass, no scars Extremities: no cyanosis, no clubbing Skin: no rash, no lesions, no ulcers Neurologic/Psychiatric: alert, responsive Lymphatic: no neck adenopathy, no groin adenopathy Microbiology Date/Time Source Procedure Growth Status 04/10/17 12:40 Nasal Nares MRSA Culture - Final NO METHICILLIN RESISTANT STAPH AUREUS... Complete 04/10/17 12:40 Rectum VRE Culture - Final NO VANCOMYCIN RESISTANT ENTEROCOCCUS ... Complete Laboratory Tests Test 04/12/17 09:40 White Blood Count 6.2 K/UL (4.8-10.8) Red Blood Count 4.66 M/UL (4.70-6.10) L Hemoglobin 14.4 G/DL (14.2-18.0) Hematocrit 44.0 % (42.0-52.0) Mean Corpuscular Volume 95 FL (80-99) Mean Corpuscular Hemoglobin 30.9 PG (27.0-31.0) Mean Corpuscular Hemoglobin Concent 32.7 G/DL (32.0-36.0) Red Cell Distribution Width 12.4 % (11.6-14.8) Platelet Count 229 K/UL (150-450) Mean Platelet Volume 7.3 FL (6.5-10.1) Neutrophils (%) (Auto) 64.8 % (45.0-75.0) Lymphocytes (%) (Auto) 27.7 % (20.0-45.0) Monocytes (%) (Auto) 5.4 % (1.0-10.0) Eosinophils (%) (Auto) 1.3 % (0.0-3.0) Basophils (%) (Auto) 0.8 % (0.0-2.0) Sodium Level 140 mEQ/L (135-145) Potassium Level 3.9 mEQ/L (3.4-4.9) Chloride Level 100 mEQ/L (98-107) Carbon Dioxide Level 30 mEQ/L (20-30) Anion Gap 10 (5-15) Blood Urea Nitrogen 14 mg/dL (7-23) Creatinine 0.9 mg/dL (0.7-1.2) Estimat Glomerular Filtration Rate > 60 mL/min (>60) Glucose Level 141 mg/dL (74-106) H Calcium Level 9.7 mg/dL (8.6-10.2) Phosphorus Level 3.9 mg/dL (2.5-4.8) Magnesium Level 1.7 mg/dL (1.7-2.5) Current Medications Medications (Trade) Dose Ordered Sig/Kun Route PRN Reason Start Time Stop Time Status Last Admin Dose Admin Acetaminophen (Tylenol) 650 mg Q4H PRN ORAL T>100.5 04/10/17 15:45 05/10/17 15:44 Al Hydroxide/Mg Hydroxide (Mylanta II) 30 ml Q6H PRN ORAL dyspepsia 04/10/17 15:45 05/10/17 15:44 Buspirone HCl (Buspar) 5 mg BID ORAL 04/10/17 18:00 05/10/17 17:59 04/10/17 17:01 Clonidine HCl (Catapres) 0.1 mg Q4H PRN ORAL SBP>160 mmHg 04/10/17 15:45 05/10/17 15:44 Dextrose (Dextrose 50%) STAT PRN IV Hypoglycemia 04/10/17 15:45 05/10/17 15:44 Finasteride (Proscar) 5 mg DAILY ORAL 04/11/17 09:00 05/11/17 08:59 Heparin Sodium (Porcine) (Heparin 5000 units/ml) 5,000 units EVERY 12 HOURS SUBQ 04/10/17 21:00 05/10/17 20:59 04/12/17 09:56 Insulin Aspart (NovoLOG) BEFORE MEALS AND HS SUBQ 04/10/17 17:30 05/10/17 17:29 04/11/17 06:39 Levetiracetam 100 ml @ 400 mls/hr Q12H IVPB 04/11/17 14:30 05/11/17 14:29 04/12/17 02:13 Lisinopril (Prinivil) 20 mg DAILY ORAL 04/11/17 09:00 05/11/17 08:59 Lorazepam (Ativan 2mg/ml 1ml) 2 mg EVERY HOUR PRN IV seizures 04/10/17 17:00 04/17/17 16:59 04/10/17 21:27 Lorazepam (Ativan 2mg/ml 1ml) 2 mg Q4H PRN IV Agitation 04/11/17 10:45 04/18/17 10:44 04/11/17 11:19 Morphine Sulfate (Morphine Sulfate) 1 mg Q4H PRN IVP PAIN 4-10 04/10/17 15:45 04/17/17 15:44 Olanzapine (ZyPREXA) 2.5 mg Q12HR ORAL 04/10/17 21:00 05/10/17 20:59 04/10/17 21:17 Ondansetron HCl (Zofran) 4 mg Q6H PRN IVP Nausea & Vomiting 04/10/17 17:00 05/10/17 16:59 Polyethylene Glycol (Miralax) 17 gm HSPRN PRN ORAL Constipation 04/10/17 15:45 05/10/17 15:44 Ranitidine HCl (Zantac) 150 mg BEDTIME ORAL 04/11/17 21:00 05/11/17 20:59 Tamsulosin HCl (Flomax) 0.4 mg BEDTIME ORAL 04/10/17 21:00 05/10/17 20:59 04/10/17 21:17 Theophylline (John-Dur) 100 mg Q12HR ORAL 04/10/17 21:00 05/10/17 20:59 04/10/17 21:17 Valproate Sodium 1000 mg/Dextrose 65 ml @ 32.5 mls/hr Q12HR IV 04/11/17 13:00 05/11/17 12:59 04/12/17 10:34 Ziprasidone (Geodon) 40 mg DAILY ORAL 04/11/17 09:00 05/11/17 08:59 Zolpidem Tartrate (Ambien) 5 mg HSPRN PRN ORAL Insomnia 04/10/17 21:00 04/17/17 20:59 Marcus Mobley M.D. Apr 12, 2017 14:54
[2017-04-12 15:17] VITALS: BP 125/68
--- NOTE | 2017-04-12 17:45 | Consultation ---
DATE OF CONSULTATION: 04/12/2017 INITIAL PSYCHIATRIC CONSULTATION History Of Present Illness: This is a 66-year-old male patient, who was admitted to [facility]. The reason for his admission is secondary to uncontrolled seizure, but in addition to seizure disorder, the patient has a history of paranoid schizophrenia. He is normally on psychotropic medications, but currently he is NPO right at this point. He came in from [facility] and he has also altered mental status and confusion. ALLERGIES: He has no known drug allergies. Social History: He lives in [facility]. Financially supported by [employer] and Medicare. SUBSTANCE ABUSE HISTORY: Denies drug or alcohol use. FAMILY PSYCHIATRIC HISTORY: No known family psychiatric history. Psychiatric History: Multiple psychiatric admissions, previously diagnosed with paranoid schizophrenia. Mental Status Examination: This is a 66-year-old male with psychomotor retardation. Mood is depressed. Affect guarded and restricted. Thought process, disorganized and illogical. Denies any current suicidal or homicidal thoughts. Insight and judgment is poor. Diagnosis: Paranoid schizophrenia with acute exacerbation, rule out dementia with psychosis. Plan: My plan for this patient is, since he is NPO currently, he does have a current psychotropic medication regimen consisting of Geodon 40 mg daily, Zyprexa 2.5 mg twice a day, which I am going to continue, but even though he has medication regimen currently, since he is on NPO status, I am going to do is I am going to also order a Haldol decanoate shot for this patient because he has been having a lot of restlessness and agitation and since he does not have any oral psychotropics to stabilize his mood he will need another route for getting his mood stabilization, so he will continue to be followed by Psychiatry. His chart is reviewed and discussed with staff. Seen and assessed at the bedside. I am going to give him Haldol decanoate 50 mg IM x1 now and I have to carry him over till the time when he is NPO. Chart reviewed and discussed with staff. I would like to thank, Dr. Nura Carter, for this interesting consultation. The patient continued to be followed by Psychiatry throughout his hospital course. The patient is seen and assessed at bedside. Berto Dong, M.D. DR: SOPHIE JOB#: [id number] CC:
[2017-04-12] MEDS ORDERED: LORazepam Inj 2mg/ml 1ml IV PRN ×2 (19:00)
[2017-04-12] MEDS ORDERED: Miralax 17gm pkt ORAL PRN (19:00)
[2017-04-12] MEDS ORDERED: Morphine Sulfate 2mg/ml Inj IVP PRN (19:00)
[2017-04-12] MEDS ORDERED: Mylanta II UD 30ml ORAL PRN (19:00)
[2017-04-12 20:00] VITALS: BP 138/62
[2017-04-12] MEDS ORDERED: Zolpidem 5mg tab ORAL PRN (21:00)
[2017-04-12] MEDS ORDERED: Tamsulosin 0.4mg cap ORAL SCH (21:00)
[2017-04-13] VITALS: BP 144/78
--- NOTE | 2017-04-13 00:15 | Consultation ---
DATE OF CONSULTATION: 04/12/2017 INFECTIOUS DISEASE CONSULTATION CONSULTING PHYSICIAN: Marcus Mobley M.D. REQUESTING PHYSICIAN: Nura Carter D.O. Reason For Consultation: Epileptic seizure, rule out infectious etiology. History Of Present Illness: The patient is a 66-year-old male with past medical history of CHF, hypertension, diabetes, seizure disorder, and CVA with dysphagia, who [facility]. The patient has well known history of seizure and his episode lasted about 1 minute as per the prison home personnel. When paramedics arrived, his blood sugar was 142 in the field. He was not actively seizing. There was no trauma to the head. The patient was taking his seizure medication as per the prison staff, so he was admitted to the hospital for further evaluation and management and I was consulted by the primary provider to rule out infectious etiology to rule out possible infection which triggered his breakthrough seizure. As of note, the patient is poor historian cannot provide any history. History was mainly obtained from the medical record. REVIEW OF SYSTEMS: Unable to obtain. The patient is poor historian. Past Medical History: Significant for congestive heart failure, hypertension, diabetes, CVA, dysphagia, seizure disorder, and epilepsy. PAST SURGICAL HISTORY: Negative. ALLERGIES: He has no known drug allergy. Medications: He is on ranitidine, Keppra, valproic acid, lorazepam, finasteride, lisinopril, Zyprexa, Geodon, Flomax, and John-Dur. FAMILY HISTORY: Unable to obtain. Social History: He lives at the prison facility. No recent drugs, tobacco, or alcohol. PHYSICAL EXAMINATION: Vital Signs: Temperature 96.9, pulse 83, respirations 21, blood pressure 129/78, and saturation 95% on room air. General: A middle-aged male, lying in bed, awake, alert, nonverbal, confused, no acute agitation, and not in distress. HEENT: Normocephalic and atraumatic. Pupils are reactive to light equally. Pale sclerae. Unable to assess oral mucosa. He does not follow command. NECK: Supple. No lymphadenopathy. CARDIOVASCULAR: Regular rate and rhythm. No murmur or gallop. Lungs: Clear bilaterally. No wheezing or rhonchi. Normal breathing effort. Abdomen: Soft, nontender, and nondistended. Positive bowel sounds. No hepatosplenomegaly. No ascites. Extremities: No edema or cyanosis. No ulceration. No pressure wounds. Laboratory And Diagnostic Data: Labs showed white count of 5.8, hemoglobin of 12.2, hematocrit of 36.3, and platelet count of 237,000. BUN of 13 and creatinine of 1. Urinalysis showed +1 ketone, +2 occult blood, 2 to 4 red blood cells, WBC 0 to 2, and few bacteria. Microbiology screening for VRE and MRSA is pending. IMAGING: Chest x-ray showed no acute finding or infiltration. Head CT scan showed no definite evidence of acute intracranial bleed, mass effect, or edema; old right MCA distribution infarct unchanged from the last study, old left superior cerebellar infarct, and old bilateral basal ganglia lacunar infarct. ASSESSMENT AND RECOMMENDATION: 1. Epileptic seizure, generalized. Based on his blood test and images, there is no evidence of infectious etiology at this point. We will keep him off antibiotics. No further workup is needed from infection standpoint. Continue seizure medications. Neurology is following. Continue neuro-check. 2. Diabetes. Recommend tight glycemic control to keep blood glucose less than 100 fasting and less than 130 pre-meals. 3. Chronic obstructive pulmonary disease. Continue inhalers and oxygen therapy. 4. Hypertension. Continue medications to keep blood pressure less than 140/90. Marcus Mobley M.D. DR: EARLE JOB#: [id number] CC:
[2017-04-13] MEDS: levETIRAcetam 500mg/NS100ml 100 ML IVPB SCH ×2 (02:01→15:17)
[2017-04-13 04:10] VITALS: BP 130/60
[2017-04-13] MEDS: NovoLOG Insulin Flexpen SUBQ SCH ×2 (05:50→12:54)
[2017-04-13 07:34] LABS: ANION GAP 14 (5-15); CALCIUM 9.4 mg/dL (8.6-10.2); CARBON DIOXIDE 26 mEQ/L (20-30); CHLORIDE 105 mEQ/L (98-107); CREATININE 0.8 mg/dL (0.7-1.2); GLOMERULAR FILTRATION RATE > 60 mL/min (>60); HEMOLYSIS 92; POTASSIUM 4.7 mEQ/L (3.4-4.9); SODIUM 145 mEQ/L (135-145)
[2017-04-13 07:35] LABS: BASOPHILS % (AUTO) 0.7 % (0.0-2.0); EOSINOPHILS % (AUTO) 1.2 % (0.0-3.0); LYMPHOCYTES % (AUTO) 29.6 % (20.0-45.0); MEAN CORPUSCULAR HEMOGLOBIN 30.1 PG (27.0-31.0); MEAN CORPUSCULAR HGB CONC 31.1 G/DL (32.0-36.0); MEAN CORPUSCULAR VOLUME 97 FL (80-99); MEAN PLATELET VOLUME 6.9 FL (6.5-10.1); MONOCYTES % (AUTO) 7.8 % (1.0-10.0); NEUTROPHILS % (AUTO) 60.8 % (45.0-75.0); PLATELET COUNT 194 K/UL (150-450); RED BLOOD COUNT 4.23 M/UL (4.70-6.10); RED CELL DISTRIBUTION WIDTH 12.2 % (11.6-14.8); WHITE BLOOD COUNT 7.3 K/UL (4.8-10.8)
[2017-04-13 08:15] VITALS: BP 134/73
[2017-04-13] MEDS ORDERED: Ziprasidone 20mg cap ORAL SCH (09:00)
[2017-04-13] MEDS ORDERED: BusPIRone 5mg Tab ORAL SCH (09:00)
[2017-04-13] MEDS ORDERED: Lisinopril 20mg tab ORAL SCH (09:00)
[2017-04-13] MEDS: Valproate Sodium INJ 1,000 MG in D5W 55 ML IV SCH (09:38)
[2017-04-13] MEDS: OLANZapine 2.5mg tab ORAL SCH (09:39)
[2017-04-13] MEDS: Theophylline ER 100mg ORAL SCH (09:39)
[2017-04-13] MEDS: Heparin 5000 units/ml inj SUBQ SCH (09:41)
[2017-04-13] MEDS ORDERED: ATIVAN2 MG/1 ML IV ×2 (10:37→10:38)
[2017-04-13] MEDS ORDERED: ZOFRAN 4 MG4 MG/2 ML IV (10:38)
[2017-04-13] MEDS ORDERED: MIRALAX17 G2 ORAL (10:38)
[2017-04-13] MEDS ORDERED: MORPHINE 22 MG/1 ML IV (10:38)
[2017-04-13] MEDS ORDERED: AMBIEN5 MG ORAL (10:39)
[2017-04-13] MEDS ORDERED: ZANTAC150 MG ORAL (10:39)
[2017-04-13] MEDS ORDERED: MYLANTA30 M1 PO (10:39)
[2017-04-13] MEDS ORDERED: LEVETIRACETAM500 MG ORAL (10:41)
[2017-04-13] MEDS ORDERED: DEPAKOTE250 MG PO (10:41)
--- NOTE | 2017-04-13 10:42 | GI Progress Note ---
Assessment/Plan Problems: (1) Encounter for PEG (percutaneous endoscopic gastrostomy) ICD Codes: Z43.1 - Encounter for attention to gastrostomy SNOMED: 438406572, 793160585 (2) Dysphagia ICD Codes: R13.10 - Dysphagia, unspecified SNOMED: 94211608, 676000001 (3) Anemia ICD Codes: D64.9 - Anemia, unspecified SNOMED: 240364523 (4) Encephalopathy ICD Codes: G93.40 - Encephalopathy, unspecified SNOMED: 31640399 (5) DM (diabetes mellitus) ICD Codes: E11.9 - Diabetes mellitus SNOMED: 20015230 Qualifiers: Qualified Codes: E10.8 - Type 1 diabetes mellitus with unspecified complications Status: stable Status Narrative Discussed with Dr. Stephens. Assessment/Plan clear for DC per GI standpoint hold PEG, patient passed ST eval currently tolerating diet monitor H&H H2B prophylaxis DM mgmt fu labs Subjective Subjective limited Objective Last 24 Hour Vital Signs Date Time Temp Pulse Resp B/P (MAP) Pulse Ox O2 Delivery O2 Flow Rate FiO2 04/13/17 09:39 134/73 04/13/17 08:15 97.7 58 20 134/73 96 Room Air 04/13/17 04:10 97.7 64 19 130/60 97 Room Air 04/13/17 00:00 97.8 66 20 144/78 97 Room Air 04/12/17 20:00 97.9 67 20 138/62 94 Room Air 04/12/17 16:00 73 04/12/17 15:17 97.1 64 20 125/68 98 Room Air 04/12/17 12:00 58 04/12/17 11:23 96.2 61 20 140/92 99 Room Air Laboratory Tests Test 04/13/17 04:35 White Blood Count 7.3 K/UL (4.8-10.8) Red Blood Count 4.23 M/UL (4.70-6.10) L Hemoglobin 12.7 G/DL (14.2-18.0) L Hematocrit 40.9 % (42.0-52.0) L Mean Corpuscular Volume 97 FL (80-99) Mean Corpuscular Hemoglobin 30.1 PG (27.0-31.0) Mean Corpuscular Hemoglobin Concent 31.1 G/DL (32.0-36.0) L Red Cell Distribution Width 12.2 % (11.6-14.8) Platelet Count 194 K/UL (150-450) Mean Platelet Volume 6.9 FL (6.5-10.1) Neutrophils (%) (Auto) 60.8 % (45.0-75.0) Lymphocytes (%) (Auto) 29.6 % (20.0-45.0) Monocytes (%) (Auto) 7.8 % (1.0-10.0) Eosinophils (%) (Auto) 1.2 % (0.0-3.0) Basophils (%) (Auto) 0.7 % (0.0-2.0) Sodium Level 145 mEQ/L (135-145) Potassium Level 4.7 mEQ/L (3.4-4.9) Chloride Level 105 mEQ/L (98-107) Carbon Dioxide Level 26 mEQ/L (20-30) Anion Gap 14 (5-15) Blood Urea Nitrogen 14 mg/dL (7-23) Creatinine 0.8 mg/dL (0.7-1.2) Estimat Glomerular Filtration Rate > 60 mL/min (>60) Glucose Level 117 mg/dL (74-106) H Calcium Level 9.4 mg/dL (8.6-10.2) Height (Feet): 5 Height (Inches): 7.00 Weight (Pounds): 150 General Appearance: no apparent distress, alert Cardiovascular: normal rate Respiratory/Chest: normal breath sounds, no respiratory distress Abdominal Exam: normal bowel sounds, non tender, soft Tara Muñiz N.P. Apr 13, 2017 10:42
--- NOTE | 2017-04-13 11:54 | Diagnostic Imaging Report ---
Indication: Dysphasia Procedure and findings: Real-time fluoroscopic imaging performed in a lateral projection in conjunction with the speech pathologist evaluation. Variable consistencies of barium given per mouth. Findings: Significant abnormalities of both oral and pharyngeal phases of swallowing are demonstrated. Total fluoroscopic time 142 seconds. No penetration or aspiration appreciated. Other abnormalities are significant such as a severe delay in swallowing. Abnormal video swallow. Please refer to speech pathology evaluation for more information.
[2017-04-13 11:56] VITALS: BP 119/68
--- NOTE | 2017-04-13 14:43 | General Progress Note ---
Assessment/Plan Problem List: (1) Acute CVA (cerebrovascular accident) ICD Codes: I63.9 - Acute CVA (cerebrovascular accident) SNOMED: 407373397 (2) Seizure disorder ICD Codes: G40.909 - Seizure disorder SNOMED: 878035924 (3) Encephalopathy ICD Codes: G93.40 - Encephalopathy, unspecified SNOMED: 92894265 (4) COPD with acute exacerbation ICD Codes: J44.1 - Chronic obstructive pulmonary disease with (acute) exacerbation SNOMED: 697120158 (5) DM (diabetes mellitus) ICD Codes: E11.9 - Diabetes mellitus SNOMED: 37149715 Qualifiers: Qualified Codes: E10.8 - Type 1 diabetes mellitus with unspecified complications (6) Altered level of consciousness ICD Codes: R40.4 - Transient alteration of awareness SNOMED: 8089996 (7) HTN (hypertension) ICD Codes: I10 - Hypertension SNOMED: 56319632 Status: stable, progressing, tolerating diet Assessment/Plan seizure control ot pt diet cbc bmp am dc plan snf Subjective Constitutional: Reports: weakness Allergies: Coded Allergies: No Known Allergies (Unverified , 01/05/13) All Systems: reviewed and negative except above Subjective calm confused in bed Objective Last 24 Hour Vital Signs Date Time Temp Pulse Resp B/P (MAP) Pulse Ox O2 Delivery O2 Flow Rate FiO2 04/13/17 11:56 97.1 60 19 119/68 97 Room Air 04/13/17 09:39 134/73 04/13/17 08:15 97.7 58 20 134/73 96 Room Air 04/13/17 04:10 97.7 64 19 130/60 97 Room Air 04/13/17 00:00 97.8 66 20 144/78 97 Room Air 04/12/17 20:00 97.9 67 20 138/62 94 Room Air 04/12/17 16:00 73 04/12/17 15:17 97.1 64 20 125/68 98 Room Air Laboratory Tests 04/13/17 04:35: White Blood Count 7.3, Red Blood Count 4.23L, Hemoglobin 12.7L, Hematocrit 40.9L , Mean Corpuscular Volume 97, Mean Corpuscular Hemoglobin 30.1, Mean Corpuscular Hemoglobin Concent 31.1L, Red Cell Distribution Width 12.2, Platelet Count 194, Mean Platelet Volume 6.9, Neutrophils (%) (Auto) 60.8, Lymphocytes (%) (Auto) 29.6, Monocytes (%) (Auto) 7.8, Eosinophils (%) (Auto) 1.2, Basophils (%) (Auto) 0.7, Sodium Level 145, Potassium Level 4.7, Chloride Level 105, Carbon Dioxide Level 26, Anion Gap 14, Blood Urea Nitrogen 14, Creatinine 0.8, Estimat Glomerular Filtration Rate > 60, Glucose Level 117H, Calcium Level 9.4 Height (Feet): 5 Height (Inches): 7.00 Weight (Pounds): 150 General Appearance: lethargic, confused EENT: normal ENT inspection Neck: normal alignment Cardiovascular: normal peripheral pulses, normal rate, regular rhythm Respiratory/Chest: chest wall non-tender, lungs clear, normal breath sounds Abdomen: normal bowel sounds, non tender, soft Extremities: normal inspection Edema: no edema noted Arm (L), no edema noted Arm (R), no edema noted Leg (L), no edema noted Leg (R), no edema noted Pedal (L), no edema noted Pedal (R), no edema noted Generalized Neurologic: motor weakness Skin: normal pigmentation, warm/dry FABIO GASTELUM Apr 13, 2017 14:43
--- NOTE | 2017-04-13 16:22 | Infectious Diseases Prog Note ---
Assessment/Plan Problems: (1) Epileptic seizure, generalized Assessment & Plan: no evidence of infection to explain his seizure , with negative CXR and UA. controlled on seizure meds, neurology is following, will monitor labs and vitals (2) DM (diabetes mellitus) Assessment & Plan: recommend tight glycemic control to keep blood glucose less that 120 fasting and less than 130 pre meals (3) COPD (chronic obstructive pulmonary disease) Assessment & Plan: continue inhalers and oxygen therapy (4) HTN (hypertension) Assessment & Plan: continue meds , keep blood pressure less than 140/90 Subjective ROS Limited/Unobtainable: Yes Allergies: Coded Allergies: No Known Allergies (Unverified , 01/05/13) Subjective he was awake and alert, no seizure activity, no fever or chills , no cough or SOB Objective Vital Signs Last 24 Hour Vital Signs Date Time Temp Pulse Resp B/P (MAP) Pulse Ox O2 Delivery O2 Flow Rate FiO2 04/13/17 11:56 97.1 60 19 119/68 97 Room Air 04/13/17 09:39 134/73 04/13/17 08:15 97.7 58 20 134/73 96 Room Air 04/13/17 04:10 97.7 64 19 130/60 97 Room Air 04/13/17 00:00 97.8 66 20 144/78 97 Room Air 04/12/17 20:00 97.9 67 20 138/62 94 Room Air Height (Feet): 5 Height (Inches): 7.00 Weight (Pounds): 150 General Appearance: WD/WN, no acute distress HEENT: normocephalic, atraumatic, anicteric, mucous membranes moist, EOMI, pharynx normal, supple Respiratory/Chest: chest wall non-tender, no respiratory distress, no accessory muscle use, decreased breath sounds Cardiovascular: normal peripheral pulses, normal rate, regular rhythm, no gallop/murmur, no JVD Abdomen: normal bowel sounds, soft, non tender, no organomegaly, non distended , no mass, no scars Extremities: no cyanosis, no clubbing Skin: no rash, no lesions, no ulcers Neurologic/Psychiatric: abnormal gait, alert, oriented x 3 Lymphatic: no neck adenopathy, no groin adenopathy Laboratory Tests Test 04/13/17 04:35 White Blood Count 7.3 K/UL (4.8-10.8) Red Blood Count 4.23 M/UL (4.70-6.10) L Hemoglobin 12.7 G/DL (14.2-18.0) L Hematocrit 40.9 % (42.0-52.0) L Mean Corpuscular Volume 97 FL (80-99) Mean Corpuscular Hemoglobin 30.1 PG (27.0-31.0) Mean Corpuscular Hemoglobin Concent 31.1 G/DL (32.0-36.0) L Red Cell Distribution Width 12.2 % (11.6-14.8) Platelet Count 194 K/UL (150-450) Mean Platelet Volume 6.9 FL (6.5-10.1) Neutrophils (%) (Auto) 60.8 % (45.0-75.0) Lymphocytes (%) (Auto) 29.6 % (20.0-45.0) Monocytes (%) (Auto) 7.8 % (1.0-10.0) Eosinophils (%) (Auto) 1.2 % (0.0-3.0) Basophils (%) (Auto) 0.7 % (0.0-2.0) Sodium Level 145 mEQ/L (135-145) Potassium Level 4.7 mEQ/L (3.4-4.9) Chloride Level 105 mEQ/L (98-107) Carbon Dioxide Level 26 mEQ/L (20-30) Anion Gap 14 (5-15) Blood Urea Nitrogen 14 mg/dL (7-23) Creatinine 0.8 mg/dL (0.7-1.2) Estimat Glomerular Filtration Rate > 60 mL/min (>60) Glucose Level 117 mg/dL (74-106) H Calcium Level 9.4 mg/dL (8.6-10.2) Current Medications Medications (Trade) Dose Ordered Sig/Kun Route PRN Reason Start Time Stop Time Status Last Admin Dose Admin Acetaminophen (Tylenol) 650 mg Q4H PRN ORAL T>100.5 04/12/17 19:00 05/10/17 18:59 Al Hydroxide/Mg Hydroxide (Mylanta II) 30 ml Q6H PRN ORAL dyspepsia 04/12/17 19:00 05/10/17 18:59 Buspirone HCl (Buspar) 5 mg BID ORAL 04/13/17 09:00 05/10/17 17:59 04/13/17 09:39 Clonidine HCl (Catapres) 0.1 mg Q4H PRN ORAL SBP>160 mmHg 04/12/17 19:00 05/10/17 18:59 Dextrose (Dextrose 50%) STAT PRN IV Hypoglycemia 04/12/17 19:00 05/12/17 18:59 Finasteride (Proscar) 5 mg DAILY ORAL 04/13/17 09:00 05/11/17 08:59 04/13/17 09:39 Heparin Sodium (Porcine) (Heparin 5000 units/ml) 5,000 units EVERY 12 HOURS SUBQ 04/12/17 21:00 05/10/17 20:59 04/13/17 09:41 Insulin Aspart (NovoLOG) BEFORE MEALS AND HS SUBQ 04/12/17 21:00 05/10/17 17:29 04/13/17 12:54 Levetiracetam 100 ml @ 400 mls/hr Q12H IVPB 04/13/17 02:30 05/11/17 14:29 04/13/17 15:17 Lisinopril (Prinivil) 20 mg DAILY ORAL 04/13/17 09:00 05/11/17 08:59 04/13/17 09:39 Lorazepam (Ativan 2mg/ml 1ml) 2 mg Q1H PRN IV seizures 04/12/17 19:00 04/19/17 18:59 Lorazepam (Ativan 2mg/ml 1ml) 2 mg Q4H PRN IV Agitation 04/12/17 19:00 04/18/17 18:59 Morphine Sulfate (Morphine Sulfate) 1 mg Q4H PRN IVP PAIN 4-10 04/12/17 19:00 04/17/17 18:59 Olanzapine (ZyPREXA) 2.5 mg Q12HR ORAL 04/12/17 21:00 05/10/17 20:59 04/13/17 09:39 Ondansetron HCl (Zofran) 4 mg Q6H PRN IVP Nausea & Vomiting 04/12/17 19:00 05/10/17 18:59 Polyethylene Glycol (Miralax) 17 gm HSPRN PRN ORAL Constipation 04/12/17 19:00 05/12/17 18:59 Ranitidine HCl (Zantac) 150 mg BEDTIME ORAL 04/12/17 21:00 05/11/17 20:59 04/12/17 20:53 Tamsulosin HCl (Flomax) 0.4 mg BEDTIME ORAL 04/12/17 21:00 05/10/17 20:59 04/12/17 20:53 Theophylline (John-Dur) 100 mg Q12HR ORAL 04/12/17 21:00 05/10/17 20:59 04/13/17 09:39 Valproate Sodium 1000 mg/Dextrose 65 ml @ 32.5 mls/hr Q12HR IV 04/12/17 21:00 05/11/17 12:59 04/13/17 09:38 Ziprasidone (Geodon) 40 mg DAILY ORAL 04/13/17 09:00 05/11/17 08:59 04/13/17 09:39 Zolpidem Tartrate (Ambien) 5 mg HSPRN PRN ORAL Insomnia 04/12/17 21:00 04/17/17 20:59 Marcus Mobley M.D. Apr 13, 2017 16:22
--- NOTE | 2017-04-13 16:28 | Pulmonology Progress Note ---
Assessment/Plan Problems: (1) Uncontrolled seizures (2) COPD (chronic obstructive pulmonary disease) (3) DM (diabetes mellitus) (4) Status post CVA (5) HTN (hypertension) Assessment/Plan no more seizures refusing telemetry swallow study pending aspiration precaution sliding scale dvt propylaxis med/surg dc planning Subjective ROS Limited/Unobtainable: No Constitutional: Reports: no symptoms HEENT: Repors: no symptoms Respiratory: Reports: no symptoms Allergies: Coded Allergies: No Known Allergies (Unverified , 01/05/13) Objective Last 24 Hour Vital Signs Date Time Temp Pulse Resp B/P (MAP) Pulse Ox O2 Delivery O2 Flow Rate FiO2 04/13/17 11:56 97.1 60 19 119/68 97 Room Air 04/13/17 09:39 134/73 04/13/17 08:15 97.7 58 20 134/73 96 Room Air 04/13/17 04:10 97.7 64 19 130/60 97 Room Air 04/13/17 00:00 97.8 66 20 144/78 97 Room Air 04/12/17 20:00 97.9 67 20 138/62 94 Room Air Intake and Output 04/13/17 04/14/17 19:00 07:00 Intake Total 240 ml Balance 240 ml Intake Oral 240 ml General Appearance: WD/WN HEENT: normocephalic Respiratory/Chest: chest wall non-tender, lungs clear Cardiovascular: normal peripheral pulses Abdomen: normal bowel sounds Skin: no rash Laboratory Tests 04/13/17 04:35: White Blood Count 7.3, Red Blood Count 4.23L, Hemoglobin 12.7L, Hematocrit 40.9L , Mean Corpuscular Volume 97, Mean Corpuscular Hemoglobin 30.1, Mean Corpuscular Hemoglobin Concent 31.1L, Red Cell Distribution Width 12.2, Platelet Count 194, Mean Platelet Volume 6.9, Neutrophils (%) (Auto) 60.8, Lymphocytes (%) (Auto) 29.6, Monocytes (%) (Auto) 7.8, Eosinophils (%) (Auto) 1.2, Basophils (%) (Auto) 0.7, Sodium Level 145, Potassium Level 4.7, Chloride Level 105, Carbon Dioxide Level 26, Anion Gap 14, Blood Urea Nitrogen 14, Creatinine 0.8, Estimat Glomerular Filtration Rate > 60, Glucose Level 117H, Calcium Level 9.4 Current Medications Medications (Trade) Dose Ordered Sig/Kun Route PRN Reason Start Time Stop Time Status Last Admin Dose Admin Acetaminophen (Tylenol) 650 mg Q4H PRN ORAL T>100.5 04/12/17 19:00 05/10/17 18:59 Al Hydroxide/Mg Hydroxide (Mylanta II) 30 ml Q6H PRN ORAL dyspepsia 04/12/17 19:00 05/10/17 18:59 Buspirone HCl (Buspar) 5 mg BID ORAL 04/13/17 09:00 05/10/17 17:59 04/13/17 09:39 Clonidine HCl (Catapres) 0.1 mg Q4H PRN ORAL SBP>160 mmHg 04/12/17 19:00 05/10/17 18:59 Dextrose (Dextrose 50%) STAT PRN IV Hypoglycemia 04/12/17 19:00 05/12/17 18:59 Finasteride (Proscar) 5 mg DAILY ORAL 04/13/17 09:00 05/11/17 08:59 04/13/17 09:39 Heparin Sodium (Porcine) (Heparin 5000 units/ml) 5,000 units EVERY 12 HOURS SUBQ 04/12/17 21:00 05/10/17 20:59 04/13/17 09:41 Insulin Aspart (NovoLOG) BEFORE MEALS AND HS SUBQ 04/12/17 21:00 05/10/17 17:29 04/13/17 12:54 Levetiracetam 100 ml @ 400 mls/hr Q12H IVPB 04/13/17 02:30 05/11/17 14:29 04/13/17 15:17 Lisinopril (Prinivil) 20 mg DAILY ORAL 04/13/17 09:00 05/11/17 08:59 04/13/17 09:39 Lorazepam (Ativan 2mg/ml 1ml) 2 mg Q1H PRN IV seizures 04/12/17 19:00 04/19/17 18:59 Lorazepam (Ativan 2mg/ml 1ml) 2 mg Q4H PRN IV Agitation 04/12/17 19:00 04/18/17 18:59 Morphine Sulfate (Morphine Sulfate) 1 mg Q4H PRN IVP PAIN 4-10 04/12/17 19:00 04/17/17 18:59 Olanzapine (ZyPREXA) 2.5 mg Q12HR ORAL 04/12/17 21:00 05/10/17 20:59 04/13/17 09:39 Ondansetron HCl (Zofran) 4 mg Q6H PRN IVP Nausea & Vomiting 04/12/17 19:00 05/10/17 18:59 Polyethylene Glycol (Miralax) 17 gm HSPRN PRN ORAL Constipation 04/12/17 19:00 05/12/17 18:59 Ranitidine HCl (Zantac) 150 mg BEDTIME ORAL 04/12/17 21:00 05/11/17 20:59 04/12/17 20:53 Tamsulosin HCl (Flomax) 0.4 mg BEDTIME ORAL 04/12/17 21:00 05/10/17 20:59 04/12/17 20:53 Theophylline (John-Dur) 100 mg Q12HR ORAL 04/12/17 21:00 05/10/17 20:59 04/13/17 09:39 Valproate Sodium 1000 mg/Dextrose 65 ml @ 32.5 mls/hr Q12HR IV 04/12/17 21:00 05/11/17 12:59 04/13/17 09:38 Ziprasidone (Geodon) 40 mg DAILY ORAL 04/13/17 09:00 05/11/17 08:59 04/13/17 09:39 Zolpidem Tartrate (Ambien) 5 mg HSPRN PRN ORAL Insomnia 04/12/17 21:00 04/17/17 20:59 MICHELLE POLLARD Apr 13, 2017 16:28
[2017-04-13] MEDS ORDERED: Tubing IV Secondary IV ONE ×2 (16:44)
[2017-04-13] MEDS ORDERED: NS 275ml ONE ×2 (16:44)
--- NOTE | 2017-04-14 08:00 | Progress Note ---
DATE: 04/13/2017 Subjective: The patient is a 66-year-old male patient with seizure disorder, paranoid schizophrenia. Plan: I am going to continue treatment with medications to prevent any decline in his cognition to prevent any decline in his cognition . Chart was reviewed and discussed with staff. Seen and assessed in his room. Berto Umana M.D. DR: Marbin JOB#: [id number] CC:
--- NOTE | 2017-04-14 10:42 | Discharge Summary ---
Discharge Summary Hospital Course Date of Admission Apr 10, 2017 at 12:44 Date of Discharge Apr 13, 2017 at 16:45 Admitting Diagnosis uncontrolled seizures LEX Moon is a 66 year old male who was admitted on Apr 10, 2017 at 12:44 for Uncontrolled Seizures Hospital Course [id number] Discharge Discharge Disposition Patient was discharged to SNF/Subacute Facility(03) Discharge Diagnoses: Ny Diez NP Apr 14, 2017 10:42
--- NOTE | 2017-04-14 19:45 | Discharge Summary 2 SIG ---
DATE OF ADMISSION: 04/10/2017 DATE OF DISCHARGE: 04/13/2017 CONSULTANTS: 1. Berto Umana M.D. 2. Mey Latham M.D. 3. Marcus Mobley M.D. 4. James Stephens M.D. 5. Brandon Bui M.D. Brief Hospital Course: The patient is a 66-year-old male from [facility], presented to [place] for seizure x2 at the residential. On evaluation at ED, CT of the head was negative. Chest x-ray done showed no infiltrate. Blood work was stable. EKG showed left axis deviation with right bundle-branch block. Normal sinus rhythm. He was then admitted to telemetry for seizures and was placed on seizure precautions. He was seen by Dr. Bui. There has been no further paroxysmal event; however, the patient became extremely agitated and restless and was screaming and yelling, demanding to remove the monitors. EEG done showed abnormal EEG with generalized slowing, intermittent delta wave transient predominantly in the right frontal central region. Head CT showed no definite evidence of acute intracranial bleed, mass effect, or edema. There was an old right MCA distribution infarct, an old left superior cerebellar infarct, old bilateral basal ganglia lacunar infarct. Valproic acid level was 21. He was given Depacon and Keppra. He has history of paranoid schizophrenia and was continued on Geodon and Zyprexa. He was given Haldol p.r.n. for restlessness. He underwent a swallow evaluation and was noted to be high risk for aspiration. He was placed on NPO. He had a re-evaluation done while more alert and was able to pass evaluation. He was then started on diet. There was no evidence of infectious etiology for seizure. Chest x-ray and UA were negative. He was observed off antibiotic treatment. He was eventually discharged back to SNF. FINAL DIAGNOSES: 1. Seizure disorder with acute exacerbation. 2. Encephalopathy. 3. Old cerebrovascular accident. 4. Chronic obstructive pulmonary disease. 5. Hypertension. 6. Encephalopathy. 7. Dysphagia. 8. Anemia. DISPOSITION: The patient was discharged to [facility]. DISCHARGE MEDICATIONS: Refer to medication list. Nura Carter D.O. I have been assigned to dictate discharge summary on this account and I was not involved in the patient's management. Ny Diez N.P. DR: AMBER JOB#: [id number] CC: MASON
== END 2017-04-13 16:45 | DRG 100 ==
LOC: EDBD 11:15 → EMR 12:41 → 2E 12:44 → EDBEDREQ 12:54 → 2E 14:12 → 4E 04-12 18:34
DX: G40.409 Other generalized epilepsy and epileptic syndromes, not intractable, without status epilepticus (principal); G93.40 Encephalopathy, unspecified; I69.354 Hemiplegia and hemiparesis following cerebral infarction affecting left non-dominant side; R13.10 Dysphagia, unspecified; I10 Essential (primary) hypertension; E11.9 Type 2 diabetes mellitus without complications; D64.9 Anemia, unspecified; J44.9 Chronic obstructive pulmonary disease, unspecified; F20.0 Paranoid schizophrenia; Z79.4 Long term (current) use of insulin
CPT/HCPCS: 36415; 70450; 71010; 74230; 80048; 80053; 80164; 80299; 81003; 82550; 82962; 83735; 84100; 84484; 85025; 87081; 93005; 95819; 97803; 99285; J1815

== ENCOUNTER 2017-09-23 16:35 | Inpatient (IN) | payer MEDICARE, MEDICAID ==
[~2017-09-23] VITALS: Ht 162.6 cm; Wt 63.0 kg
[~2017-09-23 16:35] MED LIST changes: +AMBIEN5 MG ORAL; +ATIVAN2 MG/1 ML IV; +DEPAKOTE250 MG PO; +DEXTROSE PO; +DULCOLAX10 MG RC; +FLEET ENEMA133 ML RECTAL; +GLUCAGON W/DILUE1 MG IM; +INSULIN NPH SUBQ; -LORazepam Inj 2mg/ml 1ml IV ONE; +MIRALAX17 G2 ORAL; +MORPHINE 22 MG/1 ML IV; +MYLANTA30 M1 PO; +ZANTAC150 MG ORAL; +ZOFRAN 4 MG4 MG/2 ML IV; -levETIRAcetam 500 MG in D5W 110 ML IV ONE
--- NOTE | 2017-09-23 16:57 | Emergency Room Report ---
History of Present Illness General Chief Complaint: Skin Rash/Abscess Source: Medical Record, EMS Present Illness HPI Patient presents from nursing facility with reports of abscess Medical records are being reviewed to see if patient is on antibiotics currently and how long the area has been ongoing Patient himself is not able to provide us that information Does limit the history of present illness No reports of vomiting or diarrhea Unknown regarding fever After review of medical records are notes from back possibly 6 days ago regarding application of basitracin and on that area no other obvious oral antibiotics Allergies: Coded Allergies: No Known Allergies (Unverified , 01/05/13) Patient History Limited by: medical condition Past Medical History: see triage record Pertinent Family History: unable to obtain Reviewed Nursing Documentation: PMH: Agreed, PSxH: Agreed Nursing Documentation-PMH Hx Cardiac Problems: Yes - CHF Hx Hypertension: Yes Hx Diabetes: Yes Hx Cancer: No Hx Gastrointestinal Problems: No Hx Neurological Problems: Yes - CVA, Dysphagia, epilepsy Hx Cerebrovascular Accident: Yes Hx Seizures: Yes Hx Epilepsy: Yes Hx Dysphasia: Yes Review of Systems All Other Systems: negative except mentioned in HPI Physical Exam Vital Signs Date Time Temp Pulse Resp B/P (MAP) Pulse Ox O2 Delivery O2 Flow Rate FiO2 09/23/17 16:33 99.5 90 16 159/67 90 Room Air 99.5 Sp02 EP Interpretation: reviewed, normal General Appearance: no apparent distress Head: normocephalic, atraumatic Eyes: bilateral eye PERRL ENT: normal pharynx, no angioedema Neck: supple Respiratory: lungs clear, normal breath sounds, no rhonchi Cardiovascular #1: regular rate, rhythm, no edema Gastrointestinal: non tender, soft Musculoskeletal: other - Left-sided hemiparesis Neurologic: responsive - To verbal commands and minimal response, moves her right side without deficit Skin: other - Large area of erythema with associated fluctuance involves the flank area on the right side, there is a central area of opening and there is some discharge from that region Lymphatic: no adenopathy Medical Decision Making Diagnostic Impression: Primary Impression: Abscess ER Course Multiple differentials considered Given the large an external evaluation of the area we also obtained imaging Patient initiated on IV antibiotics and hydration This area will require further specialty consultation and inpatient care Patient's white blood for count also elevated Labs Test 09/23/17 17:05 White Blood Count 16.0 K/UL (4.8-10.8) Red Blood Count 4.00 M/UL (4.70-6.10) Hemoglobin 12.2 G/DL (14.2-18.0) Hematocrit 36.9 % (42.0-52.0) Mean Corpuscular Volume 92 FL (80-99) Mean Corpuscular Hemoglobin 30.6 PG (27.0-31.0) Mean Corpuscular Hemoglobin Concent 33.1 G/DL (32.0-36.0) Red Cell Distribution Width 12.4 % (11.6-14.8) Platelet Count 258 K/UL (150-450) Mean Platelet Volume 7.0 FL (6.5-10.1) Neutrophils (%) (Auto) 82.6 % (45.0-75.0) Lymphocytes (%) (Auto) 6.8 % (20.0-45.0) Monocytes (%) (Auto) 10.0 % (1.0-10.0) Eosinophils (%) (Auto) 0.3 % (0.0-3.0) Basophils (%) (Auto) 0.4 % (0.0-2.0) Sodium Level 137 MMOL/L (136-145) Potassium Level 4.5 MMOL/L (3.5-5.1) Chloride Level 99 MMOL/L (98-107) Carbon Dioxide Level 30 MMOL/L (21-32) Anion Gap 8 mmol/L (5-15) Blood Urea Nitrogen 29 mg/dL (7-18) Creatinine 1.4 MG/DL (0.55-1.30) Estimat Glomerular Filtration Rate 51.0 mL/min (>60) Glucose Level 348 MG/DL (74-106) Lactic Acid Level 1.30 mmol/L (0.66-2.22) Calcium Level 8.5 MG/DL (8.5-10.1) Total Bilirubin 0.5 MG/DL (0.2-1.0) Aspartate Amino Transf (AST/SGOT) 12 U/L (15-37) Alanine Aminotransferase (ALT/SGPT) 11 U/L (12-78) Alkaline Phosphatase 63 U/L (46-116) Total Creatine Kinase 117 U/L (26-308) Creatine Kinase MB 1.0 NG/ML (0.0-3.6) Creatine Kinase MB Relative Index 0.8 Total Protein 7.7 G/DL (6.4-8.2) Albumin 3.3 G/DL (3.4-5.0) Globulin 4.4 g/dL Albumin/Globulin Ratio 0.8 (1.0-2.7) EKG Diagnostic Results Rate: normal Rhythm: NSR ST Segments: no acute changes Other Impression rbbb Rhythm Strip Diag. Results EP Interpretation: yes Rate: 77 Rhythm: NSR, no PVC's, no ectopy, other - Prolonged QRS in line with right bundle branch block Chest X-Ray Diagnostic Results Chest X-Ray Diagnostic Results : Chest X-Ray Ordered: Yes # of Views/Limited/Complete: 1 View Indication: Chest Pain EP Interpretation: Yes Interpretation: no consolidation, no effusion, no pneumothorax Impression: No acute disease Electronically Signed by: Mireille Jamison DO CT/MRI/US Diagnostic Results CT/MRI/US Diagnostic Results : Impression cT chestCT CHEST Without Contrast: Left lower lung linear and slightly nodular opacities. Question atelectasis, scarring, infectious or inflammatory. Evaluation is limited without contrast. Right mid to inferior lateral back has an area of subcutaneous soft tissue swelling. Presence of peripheral enhancing fluid collection cannot be well assessed without contrast. Most prominent soft tissue thickening Last Vital Signs Date Time Temp Pulse Resp B/P (MAP) Pulse Ox O2 Delivery O2 Flow Rate FiO2 09/23/17 16:33 99.5 90 16 159/67 90 Room Air 99.5 Status: improved Disposition: ADMITTED INPATIENT Condition: Serious Mireille Jamison DO Sep 23, 2017 16:57
[2017-09-23] MEDS ORDERED: Vancomycin 1.5gm/D5W 250ml 250 ML IVPB ONE (17:00)
[2017-09-23] MEDS ORDERED: ceFAZolin 1gm/50ml Premix 50 ML IV ONE (17:00)
[2017-09-23] MEDS ORDERED: NS 1000ml 2,200 ML IVLG ONE (17:00)
[2017-09-23 17:10] VITALS: BP 138/79
[2017-09-23 17:42] LABS: BASOPHILS % (AUTO) 0.4 % (0.0-2.0); EOSINOPHILS % (AUTO) 0.3 % (0.0-3.0); HEMATOCRIT 36.9 % (42.0-52.0); HEMOGLOBIN 12.2 G/DL (14.2-18.0); LYMPHOCYTES % (AUTO) 6.8 % (20.0-45.0); MEAN CORPUSCULAR VOLUME 92 FL (80-99); NEUTROPHILS % (AUTO) 82.6 % (45.0-75.0); PLATELET COUNT 258 K/UL (150-450); RED CELL DISTRIBUTION WIDTH 12.4 % (11.6-14.8)
[2017-09-23 18:00] LABS: ANION GAP 8 mmol/L (5-15); BLOOD UREA NITROGEN 29 mg/dL (7-18); CALCIUM 8.5 MG/DL (8.5-10.1); CARBON DIOXIDE 30 MMOL/L (21-32); CHLORIDE 99 MMOL/L (98-107); CREATININE 1.4 MG/DL (0.55-1.30); POTASSIUM 4.5 MMOL/L (3.5-5.1); SODIUM 137 MMOL/L (136-145)
[2017-09-23] MEDS ORDERED: BISACODYL10 M1 RC (18:07)
[2017-09-23] MEDS ORDERED: ACETAMINOPHEN325 M1 ORAL (18:07)
[2017-09-23] MEDS ORDERED: VALPROIC A250 MG/5 M PO (18:07)
[2017-09-23] MEDS ORDERED: NOVOLIN N100 UNIT/1 SUBQ ×2 (18:07)
[2017-09-23] MEDS ORDERED: FLEET ENEMA133 ML RECTAL (18:07)
[2017-09-23] MEDS ORDERED: MILK OF MA400 MG/51 ORAL (18:07)
[2017-09-23] MEDS ORDERED: DOCUSATE SODIU100 MG ORAL (18:07)
[2017-09-23 18:18] LABS: ALANINE AMINOTRANSFERASE 11 U/L (12-78); ALBUMIN 3.3 G/DL (3.4-5.0); ALBUMIN/GLOBULIN RATIO 0.8 (1.0-2.7); ALKALINE PHOSPHATASE 63 U/L (46-116); ASPARTATE AMINO TRANSFERASE 12 U/L (15-37); BILIRUBIN,TOTAL 0.5 MG/DL (0.2-1.0); CREATINE KINASE 117 U/L (26-308)
[2017-09-23] MEDS ORDERED: ceFAZolin sod 1 GM in NS 55 ML IVPB ONE (18:30)
[2017-09-23] MEDS ORDERED: MULTIVITAMINS1 EAC8 ORAL (20:13)
--- NOTE | 2017-09-23 20:44 | Consultation ---
Consult Note Consult Note ID DIC # [id number] OSEAS BOSS M.D. Sep 23, 2017 20:44
[2017-09-23] MEDS ORDERED: Milk of Magnesia 30ml Ud ORAL PRN (21:15)
[2017-09-23] MEDS: BusPIRone 5mg Tab ORAL SCH (21:15)
[2017-09-23] MEDS: D5 1/2NS 1,000 ML IV SCH (22:43)
[2017-09-23] MEDS: NovoLOG Insulin Flexpen SUBQ SCH (22:44)
[2017-09-24] VITALS: BP 122/68
[2017-09-24 04:00] VITALS: BP 128/62
--- NOTE | 2017-09-24 05:45 | Consultation ---
DATE OF CONSULTATION: 09/24/2017 INFECTIOUS DISEASE CONSULTATION CONSULTING PHYSICIAN: Parish Singh M.D. REFERRING PHYSICIAN: Nura Carter D.O. REASON FOR CONSULTATION: Evaluation of the patient for right chest abscess, antibiotic management. HISTORY OF PRESENT ILLNESS: The patient is a 66-year-old male with multiple medical problems, who was brought from [facility] to this medical facility due to abscesses on the right side of the chest. Infectious Disease consultation has been requested for further evaluation of the patient's antibiotic management. The patient is a poor historian, most of the information was gathered speaking to staff. PAST MEDICAL HISTORY: 1. CVA. 2. Seizure disorder. 3. History of dysphagia in the past. 4. Hyperlipidemia. 5. Hypertension. 6. BPH. 7. Diabetes. 8. Schizophrenia. 9. Depression/anxiety. MEDICATIONS: The patient received one dose of Ancef and vancomycin in the emergency room. ALLERGIES: No known drug allergies. SOCIAL HISTORY: The patient lives in assisted. PHYSICAL EXAMINATION: VITAL SIGNS: Temperature 98.6 degrees, pulse 83, respiratory rate 18, and blood pressure 122/86. HEENT: No pale conjunctivae. No icterus. NECK: No lymphadenopathy. CHEST: Clear. The patient has right lower chest abscess with erythema and cellulitis in the area, mild purulent discharge. ABDOMEN: Soft. EXTREMITIES: No cyanosis. NEUROLOGIC: Awake. LABORATORY AND DIAGNOSTIC DATA: White blood cells 16, hemoglobin 12 and platelets 258. BUN 29 and creatinine 1.4. Chest CT with no contrast was done. Preliminary report shows soft-tissue abscess. Official report is pending. ASSESSMENT: The patient is a 66-year-old male with: 1. Leukocytosis. 2. Right chest abscess, most likely due to Staphylococcus aureus. 3. Rule out bacteremia. 4. Doubt abscess at this time. 5. Doubt there is extension of infection come from the lungs towards the chest at this time, however, the official report of CT scan is pending. PLAN: 1. We will continue the patient on IV vancomycin. 2. Monitor CBC. 3. Monitor BMP. 4. Monitor cultures (blood, wound). 5. Monitor CBC. 6. Monitor BMP. 7. Monitor chest x-ray. 8. We will follow on the final CT report. Thank you, Dr. Nura Carter, for allowing me to participate in the care of the patient. We will follow the patient for surgical evaluation and recommendation for possible incision and drainage. Parish Singh M.D. DR: STEPHAN JOB#: [id number] CC:
[2017-09-24] MEDS: NovoLOG Insulin Flexpen SUBQ SCH ×4 (05:51→20:44)
[2017-09-24 08:00] VITALS: BP 100/56
[2017-09-24] MEDS: Heparin 5000 units/ml inj SUBQ SCH ×2 (09:00→20:44)
[2017-09-24] MEDS: Lisinopril 20mg tab ORAL SCH (09:00)
[2017-09-24] MEDS: OLANZapine 2.5mg tab ORAL SCH ×2 (09:05→17:55)
[2017-09-24] MEDS: Docusate 100mg cap ORAL SCH (09:05)
[2017-09-24] MEDS: BusPIRone 5mg Tab ORAL SCH ×2 (09:36→17:55)
--- NOTE | 2017-09-24 10:24 | Diagnostic Imaging Report ---
Indication: Chest pain Technique: XRAY Chest 1v Comparison: 04/10/2017 Findings: Heart size and mediastinal contours are stable. There is slight prominence of the vascular markings. No definite focal airspace consolidation is appreciated. No pleural effusion or pneumothorax. No acute osseous abnormality. Impression: Question mild pulmonary vascular congestion/fluid overload. Study obtained via the emergency department however patient admitted to the hospital at time of dictation of the final report.
[2017-09-24 11:02] LABS: BASOPHILS % (AUTO) 0.5 % (0.0-2.0); EOSINOPHILS % (AUTO) 0.8 % (0.0-3.0); HEMATOCRIT 34.2 % (42.0-52.0); HEMOGLOBIN 11.5 G/DL (14.2-18.0); LYMPHOCYTES % (AUTO) 12.6 % (20.0-45.0); MEAN CORPUSCULAR VOLUME 92 FL (80-99); MONOCYTES % (AUTO) 10.7 % (1.0-10.0); NEUTROPHILS % (AUTO) 75.5 % (45.0-75.0); PLATELET COUNT 255 K/UL (150-450); RED BLOOD COUNT 3.74 M/UL (4.70-6.10); RED CELL DISTRIBUTION WIDTH 12.1 % (11.6-14.8); WHITE BLOOD COUNT 13.5 K/UL (4.8-10.8)
[2017-09-24 11:16] LABS: ANION GAP 9 mmol/L (5-15); BLOOD UREA NITROGEN 25 mg/dL (7-18); CALCIUM 8.3 MG/DL (8.5-10.1); CARBON DIOXIDE 27 MMOL/L (21-32); CHLORIDE 103 MMOL/L (98-107); CREATININE 1.1 MG/DL (0.55-1.30); SODIUM 139 MMOL/L (136-145)
[2017-09-24 12:00] VITALS: BP 99/58
--- NOTE | 2017-09-24 13:06 | Consultation ---
History of Present Illness General Date patient seen: Sep 24, 2017 Chief Complaint: Skin Rash/Abscess Reason for Consultation: right chest wall abscess Present Illness HPI 66 year old male with multiple medical comorbidities who is currently under care of care facility was transferred to [facility] for evaluation of right lateral chest wall infection. From notes seems that started out as smaller site of infection that was noted about a week ago and treated with topical cream. Did not respond to therapy and enlarged with erythema, edema, skin breakdown prompting evaluation at [facility]. Patient alert but given medical condition limited and cannot give history. On admission noted to have moderate sized right lateral superficial chest wall infection with leukocytosis. Surgery called to evaluate above. Patient seen, chart reviewed, exam performed. Allergies: Coded Allergies: No Known Allergies (Unverified , 01/05/13) Medication History Scheduled Buspirone Hcl* (Buspar*), 5 MG ORAL BID, (Reported) Docusate Sodium* (Docusate Sodium*), 100 MG ORAL DAILY, (Reported) Finasteride* (Proscar*), 5 MG ORAL DAILY, (Reported) Levetiracetam* (Levetiracetam*), 500 MG ORAL Q12HR, (Reported) Lisinopril (Lisinopril*), 20 MG ORAL DAILY Multivitamin With Minerals (Multivitamins With Minerals*), 1 TAB ORAL DAILY, ( Reported) Nph, Human Insulin Isophane* (Novolin N*), 12 UNITS SUBQ BEFORE BREAKFAST, ( Reported) Nph, Human Insulin Isophane* (Novolin N*), 6 UNITS SUBQ QPM, (Reported) Olanzapine* (Zyprexa*), 2.5 MG ORAL BID, (Reported) Valproate Sodium (Valproic Acid), 10 ML PO BID, (Reported) Scheduled PRN Acetaminophen* (Acetaminophen 325MG Tablet*), 650 MG ORAL Q4H PRN for Fever/ Headache/Mild Pain, (Reported) Bisacodyl (Bisacodyl), 10 MG RC for Constipation, (Reported) Magnesium Hydroxide* (Milk Of Magnesia*), 30 ML ORAL HS PRN for Constipation, ( Reported) Na Phos,M-B/Na Phos,Di-Ba* (Fleet Enema*), 133 ML RECTAL for Constipation, ( Reported) Discontinued Medications Acetaminophen* (Acetaminophen 325MG Tablet*), 650 MG ORAL Q6H PRN for Mild Pain/ Temp > 100.5 Discontinued Reason: Pt stopped taking med Al Hydroxide/mg Hydroxide (Mag-Al Liquid), 30 ML PO Q6HR PRN for GASTRIC UPSET, (Reported) Discontinued Reason: Prescription changed Clonidine Hcl* (Catapres*), 0.1 MG ORAL EVERY 4 HOURS PRN for PRN, (Reported) Discontinued Reason: Pt stopped taking med Divalproex Sodium* (Depakote Er*), 500 MG ORAL EVERY 12 HOURS, (Reported) Discontinued Reason: Prescription changed Divalproex Sodium* (Depakote*), 500 MG PO Q12HR, (Reported) Discontinued Reason: Pt stopped taking med Insulin Aspart (Novolog Flexpen), 0 UNITS SUBQ NOVOTIAC Discontinued Reason: Pt stopped taking med Lorazepam* (Ativan*), 2 MG IV Q1HR PRN for SEIZURES, (Reported) Discontinued Reason: Therapy completed Morphine Sulfate* (Morphine Sulfate*), 1 MG IV Q4HR PRN for For Pain, (Reported) Discontinued Reason: Therapy completed Ondansetron* (Zofran*), 4 MG IV Q6H PRN for Nausea & Vomiting, (Reported) Discontinued Reason: Therapy completed Polyethylene Glycol 3350* (Miralax*), 17 GM ORAL HS PRN for Constipation, ( Reported) Discontinued Reason: Pt stopped taking med Ranitidine Hcl* (Zantac*), 150 MG ORAL BEDTIME, (Reported) Discontinued Reason: Pt stopped taking med Tamsulosin HCl (Flomax), 0.4 MG ORAL BEDTIME Discontinued Reason: Pt stopped taking med Theophylline (Theodur*), 100 MG ORAL Q12HR, (Reported) Discontinued Reason: Pt stopped taking med Ziprasidone Hcl* (Geodon*), 40 MG ORAL DAILY Discontinued Reason: Pt stopped taking med Zolpidem Tartrate* (Ambien*), 5 MG ORAL BEDTIME PRN for Insomnia, (Reported) Discontinued Reason: Pt stopped taking med Patient History Limited by: medical condition History Provided By: Medical Record, PMD Healthcare decision maker Resuscitation status Full Code Advanced Directive on File Past Medical/Surgical History Past Medical/Surgical History: (1) Fever (2) Hypokalemia (3) Hypoglycemia (4) Rhabdomyolysis (5) Bacteremia (6) Upper respiratory infection (7) Sepsis (8) Pneumonia (9) Arterial ischemic stroke, MCA (middle cerebral artery), right, chronic (10) Episode of generalized weakness (11) Prerenal azotemia (12) Pneumonia (13) Urinary retention (14) DM (diabetes mellitus) (15) COPD (chronic obstructive pulmonary disease) (16) HTN (hypertension) (17) Uncontrolled seizures (18) Seizure disorder (19) Encephalopathy (20) Altered level of consciousness (21) COPD with acute exacerbation (22) Acute CVA (cerebrovascular accident) (23) Arterial ischemic stroke, multifocal, mult vascular territories, chron (24) Anemia (25) Dysphagia (26) Encounter for PEG (percutaneous endoscopic gastrostomy) (27) Abscess Review of Systems ROS Narrative cannot obtain given patients medical condition Physical Exam General Appearance: no apparent distress Lines, tubes and drains: peripheral HEENT: mucous membranes moist Neck: normal alignment Respiratory/Chest: lungs clear, normal breath sounds, no respiratory distress, no accessory muscle use Cardiovascular/Chest: normal peripheral pulses, normal rate Abdomen: normal bowel sounds, non tender, soft, no organomegaly, no mass Extremities: normal inspection Skin Exam: warm/dry, other - right lateral mid axillary line superficial chest wall cellullitis noted. hard, tender, red, superficial skin breakdown, no fluctuance noted. Neurologic: alert Last 24 Hour Vital Signs Date Time Temp Pulse Resp B/P (MAP) Pulse Ox O2 Delivery O2 Flow Rate FiO2 09/24/17 12:00 98.4 84 17 99/58 97 Room Air 98.4 09/24/17 09:00 100/56 09/24/17 08:00 98.4 72 18 100/56 95 Room Air 98.4 09/24/17 04:00 98.5 80 20 128/62 95 98.5 09/24/17 04:00 Room Air 09/24/17 00:00 Room Air 09/24/17 00:00 98.6 84 20 122/68 95 98.6 09/23/17 18:40 98.9 18 147/84 95 09/23/17 17:10 98.7 18 138/79 96 Room Air 98.7 09/23/17 16:33 99.5 90 16 159/67 90 Room Air 99.5 Intake and Output 09/23/17 09/24/17 19:00 07:00 Intake Total 0 ml 60 ml Balance 0 ml 60 ml Intake Oral 0 ml IV Total 60 ml # Voids 3 Laboratory Tests Test 09/23/17 17:05 09/24/17 10:40 White Blood Count 16.0 K/UL (4.8-10.8) H 13.5 K/UL (4.8-10.8) H Red Blood Count 4.00 M/UL (4.70-6.10) L 3.74 M/UL (4.70-6.10) L Hemoglobin 12.2 G/DL (14.2-18.0) L 11.5 G/DL (14.2-18.0) L Hematocrit 36.9 % (42.0-52.0) L 34.2 % (42.0-52.0) L Mean Corpuscular Volume 92 FL (80-99) 92 FL (80-99) Mean Corpuscular Hemoglobin 30.6 PG (27.0-31.0) 30.8 PG (27.0-31.0) Mean Corpuscular Hemoglobin Concent 33.1 G/DL (32.0-36.0) 33.6 G/DL (32.0-36.0) Red Cell Distribution Width 12.4 % (11.6-14.8) 12.1 % (11.6-14.8) Platelet Count 258 K/UL (150-450) 255 K/UL (150-450) Mean Platelet Volume 7.0 FL (6.5-10.1) 6.9 FL (6.5-10.1) Neutrophils (%) (Auto) 82.6 % (45.0-75.0) H 75.5 % (45.0-75.0) H Lymphocytes (%) (Auto) 6.8 % (20.0-45.0) L 12.6 % (20.0-45.0) L Monocytes (%) (Auto) 10.0 % (1.0-10.0) 10.7 % (1.0-10.0) H Eosinophils (%) (Auto) 0.3 % (0.0-3.0) 0.8 % (0.0-3.0) Basophils (%) (Auto) 0.4 % (0.0-2.0) 0.5 % (0.0-2.0) Sodium Level 137 MMOL/L (136-145) 139 MMOL/L (136-145) Potassium Level 4.5 MMOL/L (3.5-5.1) 4.0 MMOL/L (3.5-5.1) Chloride Level 99 MMOL/L (98-107) 103 MMOL/L (98-107) Carbon Dioxide Level 30 MMOL/L (21-32) 27 MMOL/L (21-32) Anion Gap 8 mmol/L (5-15) 9 mmol/L (5-15) Blood Urea Nitrogen 29 mg/dL (7-18) H 25 mg/dL (7-18) H Creatinine 1.4 MG/DL (0.55-1.30) H 1.1 MG/DL (0.55-1.30) Estimat Glomerular Filtration Rate 51.0 mL/min (>60) > 60 mL/min (>60) Glucose Level 348 MG/DL (74-106) H 162 MG/DL (74-106) #H Lactic Acid Level 1.30 mmol/L (0.66-2.22) Calcium Level 8.5 MG/DL (8.5-10.1) 8.3 MG/DL (8.5-10.1) L Total Bilirubin 0.5 MG/DL (0.2-1.0) Aspartate Amino Transf (AST/SGOT) 12 U/L (15-37) L Alanine Aminotransferase (ALT/SGPT) 11 U/L (12-78) L Alkaline Phosphatase 63 U/L (46-116) Total Creatine Kinase 117 U/L (26-308) Creatine Kinase MB 1.0 NG/ML (0.0-3.6) Creatine Kinase MB Relative Index 0.8 Total Protein 7.7 G/DL (6.4-8.2) Albumin 3.3 G/DL (3.4-5.0) L Globulin 4.4 g/dL Albumin/Globulin Ratio 0.8 (1.0-2.7) L Height (Feet): 5 Height (Inches): 4.00 Weight (Pounds): 139 Medications Current Medications Medications (Trade) Dose Ordered Sig/Kun Route PRN Reason Start Time Stop Time Status Last Admin Dose Admin Acetaminophen (Tylenol) 650 mg Q4H PRN ORAL Fever/Headache/Mild Pain 09/23/17 21:15 4/16/18 21:14 Bisacodyl (Dulcolax) 10 mg DAILYPRN PRN RECTAL Constipation 09/23/17 21:15 10/23/17 21:14 Buspirone HCl (Buspar) 5 mg BID ORAL 09/23/17 21:15 10/23/17 21:14 09/24/17 09:36 Dextrose (Dextrose 50%) STAT PRN IV Hypoglycemia 09/23/17 21:15 10/23/17 21:14 Dextrose/Sodium Chloride 1,000 ml @ 60 mls/hr [id number] IV 09/23/17 22:00 10/23/17 21:59 09/23/17 22:43 Docusate Sodium (Colace) 100 mg DAILY ORAL 09/24/17 09:00 10/24/17 08:59 09/24/17 09:05 Finasteride (Proscar) 5 mg DAILY ORAL 09/24/17 09:00 10/24/17 08:59 09/24/17 09:05 Heparin Sodium (Porcine) (Heparin 5000 units/ml) 5,000 units EVERY 12 HOURS SUBQ 09/24/17 09:00 10/24/17 08:59 Insulin Aspart (NovoLOG) BEFORE MEALS AND HS SUBQ 09/24/17 06:30 10/24/17 06:29 09/24/17 12:24 Levetiracetam (Keppra) 500 mg Q12HR ORAL 09/23/17 21:15 10/23/17 21:14 09/24/17 09:05 Lisinopril (Prinivil) 20 mg DAILY ORAL 09/24/17 09:00 10/24/17 08:59 Magnesium Hydroxide (Mom) 30 ml DAILYPRN PRN ORAL Constipation 09/23/17 21:15 10/23/17 21:14 Olanzapine (ZyPREXA) 2.5 mg BID ORAL 09/24/17 09:00 10/24/17 08:59 09/24/17 09:05 Valproic Acid (Depakene) 250 mg TWICE A DAY ORAL 09/24/17 09:00 10/24/17 08:59 09/24/17 09:05 Vancomycin HCl (Vanco rx to dose) 1 ea DAILY PRN MISC Per rx protocol 09/23/17 20:45 10/23/17 20:44 Vancomycin HCl/ Dextrose 250 ml @ 166.667 mls/hr Q24H IVPB 09/24/17 18:00 09/29/17 17:59 Assessment/Plan Problem List: (1) Abscess Assessment & Plan: 66M right lateral superficial chest wall abscess. Afebrile , HD stable, leukocytosis improving. On exam has moderate sized area of induration without fluctuance. skin breakdown noted around apex. erythema, edema, warmth. no underlying abscess appreciated on exam. CT scan reviewed and moderate superficial (dermis/subcutaneous fat) area of cellulitis noted. no abscess or drainable fluid collection seen on CT. no extension to chest wall/ribs/lungs noted. -No acute surgical intervention necessary. area of cellulitis may form abscess later that may need drainage but currently no drainable fluid collection noted/ abscess noted. -keep skin clean and dry. dressing to protect skin from further breakdown. -Abx as per ID. input appreciated. -thank you for this consultation. will follow with recs. ICD Codes: L02.91 - Cutaneous abscess, unspecified SNOMED: [id number] Status: stable Dre Hope Sep 24, 2017 13:06
[2017-09-24] MEDS: D5 1/2NS 1,000 ML IV SCH (14:45)
--- NOTE | 2017-09-24 15:12 | Diagnostic Imaging Report ---
Indication: Pain. On the upper back. Technique: CT chest was performed utilizing automated exposure control without intravenous contrast material. Axial, sagittal and coronal images were generated. CT dose: Total DLP 920.52 mGycm; CTDI vol 26.5 mGy Comparison: None Findings: Limited evaluation of soft tissue structures without intravenous contrast. Partially visualized in the right mid to lower lateral back is an area of subcutaneous soft tissue swelling (series 3 image #50). Presence of peripheral enhancing fluid collection cannot be well-established without contrast. There is apparent overlying skin thickening. Correlation with physical exam recommended. If IV contrast cannot be administered, focused ultrasound could performed to assess for fluid collection. Evaluation of the chest and lungs limited by patient motion. There are linear opacities in the left lower lobe raising question for atelectasis, scarring or infection/inflammation. No pleural effusion or pneumothorax. Heart appears borderline enlarged. Question coronary arterial calcifications. Perinephric stranding is partially visualized. There is interposition of the colon anterior to the liver. There are degenerative changes of the spine. No acute osseous abnormality seen. IMPRESSION: Partially visualized soft tissue swelling and skin thickening about the right lateral mid/lower back as detailed above. Correlate with physical exam assess for cellulitis. Evaluation is limited without contrast and the presence of a rim-enhancing fluid collection/abscess cannot be well established. Consider focused ultrasound evaluation to assess for fluid component. Opacities in the left lower lobe may related to atelectasis, scarring, infection or inflammation. Please note that evaluation of the lungs is limited due to significant respiratory motion. Additional findings as above. This corresponds with the preliminary report issued by the stat rad radiologist. The CT scanner at [facility] is accredited by the [employer] and the scans are performed using protocols designed to limit radiation exposure to as low as reasonably achievable to attain images of sufficient resolution adequate for diagnostic evaluation.
[2017-09-24 16:00] VITALS: BP 101/62
[2017-09-24] MEDS ORDERED: D5 1/2NS 1000ml IV ONE (16:38)
[2017-09-24] MEDS: Vancomycin 1250mg/D5W 250ml IVPB SCH (17:43)
--- NOTE | 2017-09-24 18:15 | History and Physical Report ---
DATE OF ADMISSION: 09/23/2017 APPROXIMATE TIME: 9 a.m. CONSULTANTS: 1. Dre Hope M.D. 2. Parish Singh M.D. CHIEF COMPLAINT: Flank abscess. BRIEF HISTORY: This is a 66-year-old male from [facility] presented with left flank abscess, been dealing over the last couple of days, getting worse, came to [place], diagnosed with the above and admitted to medical floor for further treatment. Currently, calm in bed, eating. No complaint. No chest pain. No shortness of breath. No nausea, vomiting, or diarrhea. PAST MEDICAL HISTORY: Includes COPD, diabetes, hypertension, CVA, seizure. PAST SURGICAL HISTORY: PEG placement MEDICATIONS: Include vancomycin, heparin, docusate sodium, finasteride, lisinopril, olanzapine, insulin, Tylenol. ALLERGIES: Denies. SOCIAL HISTORY: No smoking. No alcohol. No intravenous drug abuse. FAMILY HISTORY: Noncontributory. PHYSICAL EXAMINATION: GENERAL: Calm in bed, oriented x2, in no acute distress. VITAL SIGNS: Temperature is 98, pulse 80, respiratory rate 20, blood pressure 128/62. CARDIOVASCULAR: No murmur. LUNGS: Poor exchange. ABDOMEN: Bowel sounds distant. EXTREMITIES: Show no cyanosis, clubbing, or edema. NEUROLOGIC: Left hemipareses noted, slightly weak. LABORATORY AND DIAGNOSTIC DATA: White count 16, hemoglobin and hematocrit, anemia 12 and 36, platelets 258. BMP show BUN and creatinine 29 and 1.4, glucose 348. ASSESSMENT: 1. Flank abscess. 2. Leukocytosis. 3. Hypertension. 4. Diabetes. 5. Anemia. 6. Renal insufficiency. 7. COPD. 8. CVA. 9. Seizure. PLAN: 1. Continue previous medications. 2. Wound care. 3. OT/PT. 4. Dietary followup. 5. Blood pressure and blood sugar control. 6. CBC and BMP in the morning. Dr. Hope, Dr. Singh, to consult. We will continue to follow the patient. Nura Carter D.O. DR: Barbra JOB#: [id number] CC:
[2017-09-24 20:00] VITALS: BP 113/56
[2017-09-25] VITALS: BP 119/59
[2017-09-25 04:00] VITALS: BP 115/57
--- NOTE | 2017-09-25 05:00 | Consultation ---
DATE OF CONSULTATION: 09/24/2017 PSYCHOTHERAPY CONSULTATION PROGRESS NOTE CONSULTING PHYSICIAN: Beulah Villavicencio PsyD. TREATING ATTENDING PHYSICIAN: Nura Carter D.O. HISTORY OF PRESENT ILLNESS: The patient is a 66-year-old male patient. The patient presented here from the nursing facility. The patient was brought into the hospital for flank abscess. He has a history of COPD and diabetes. The patient has a history of mental illness as well including a history of paranoid schizophrenia. The patient has been slightly disorganized, confused, altered in his mental status, helpless and for this reason, he is referred for psychotherapeutic services. This clinician assessed the patient. The patient remains disorganized, confused, helpless, and has no logical or viable plan for his self-care. The patient requires hospitalization for stabilization of symptoms. There is no indication of auditory or visual hallucinations. There is no indication of suicidal or homicidal thoughts of ideation. The patient is a 66-year-old male patient. PAST MEDICAL HISTORY: Includes history of CVA, hypertension, COPD, diabetes, and seizure disorder. ALLERGIES: The patient has no known drug allergies. SUBSTANCE ABUSE HISTORY: There is no indication of alcohol use, illicit substance use, or smoking cigarettes. PSYCHIATRIC HISTORY: The patient has history of schizophrenia and has been treated with psychotropic medications in the past. SOCIAL HISTORY: The patient is a 66-year-old male patient from [facility]. Financially sustained through [employer]. He is a single male patient. MENTAL STATUS EXAMINATION: The patient is alert and oriented to person and place. Mood is dysphoric. Affect blunted. Thought process disorganized. Poor attention and concentration. DIAGNOSIS: Schizophrenia, paranoid type. PLAN: Assessed the patient and assessed the patient's mental status, provided the patient with reality orientation, adjusting the patient's current inability to . At this time, the patient has no logical or viable plan for his self-care. continue with behavioral management. This clinician has reviewed the patient's chart and discussed the treatment with treatment team. Beulah Villavicencio PsyD. DR: DON JOB#: [id number] CC:
[2017-09-25] MEDS: D5 1/2NS 1,000 ML IV SCH (06:05)
[2017-09-25] MEDS: NovoLOG Insulin Flexpen SUBQ SCH ×4 (06:08→20:54)
[2017-09-25 08:00] VITALS: BP 119/69
[2017-09-25] MEDS: OLANZapine 2.5mg tab ORAL SCH ×4 (09:00→19:06)
[2017-09-25] MEDS: Heparin 5000 units/ml inj SUBQ SCH ×3 (09:00→20:55)
[2017-09-25] MEDS: Docusate 100mg cap ORAL SCH ×2 (09:00→09:23)
[2017-09-25] MEDS: Lisinopril 20mg tab ORAL SCH ×2 (09:00→09:22)
[2017-09-25] MEDS: BusPIRone 5mg Tab ORAL SCH ×4 (09:00→19:06)
--- NOTE | 2017-09-25 10:30 | Consultation ---
DATE OF CONSULTATION: 09/25/2017 INITIAL PSYCHIATRIC EVALUATION REPORT CONSULTING PHYSICIAN: Berto Umana M.D. HISTORY OF PRESENT ILLNESS: This is a 66-year-old male patient, who was admitted to [facility]. He was admitted because he had a flank abscess. The patient does have a history of schizoaffective, bipolar type and also his mood lability has worsened secondary to stress of his medical illness. So, daily psychiatric consultation has been requested by this patient's attending physician. I saw and assessed this patient at bedside today. He is confused. He has intermittent bouts of agitation, so his cognition has declined below baseline. So, the goal is to prevent any further decline in his cognition. MEDICAL HISTORY: This patient has a diagnosis of COPD, diabetes, hypertension, status post CVA, and seizure disorder. MEDICATIONS: His psychotropic medications on admission, he is on Zyprexa 2.5 mg p.o. twice a day and he is also on a dose of Depakote 250 mg twice a day to stabilize his mood and he is also on BuSpar 5 mg twice a day as an antianxiety, and he continues to have some mood lability and confusion. SOCIAL HISTORY: Lives in a senior living. Financially supported by [employer] and Medicare. FAMILY PSYCHIATRIC HISTORY: Denies. PSYCHIATRIC HISTORY: He has a diagnosis of schizoaffective, bipolar type. He has had previous psychiatric admissions. SUBSTANCE ABUSE HISTORY: Denies drug and alcohol use. STRENGTHS: He is moderately better and he has a place to live. WEAKNESSES: He is impulsive and minimal support system. MENTAL STATUS EXAMINATION: This is a 66-year-old male with psychomotor retardation. Mood is depressed. Affect guarded and restricted. Thought process, disorganized and illogical. Denies any current suicidal or homicidal thoughts. Insight and judgment is poor. Memory is 2/3 recall, so, poor memory. Orientation x2. Speech is low volume and slurred. Denies suicidal or homicidal thoughts. DIAGNOSES: 1. Schizoaffective, bipolar type. 2. Medical problems include chronic obstructive pulmonary disease, diabetes, hypertension, cerebrovascular accident, and seizures. 3. Psychosocial stressors, financial. PLAN: Plan for this patient is I am going to treat this patient with Zyprexa 2.5 mg twice a day, Depakote 250 mg twice a day, and BuSpar 5 mg twice a day. Provided 20 minutes supportive therapy to this patient and encouraged him to interact appropriately with staff and other patients. The patient was seen and assessed at bedside. Chart was reviewed and discussed with staff. I would like to thank, Dr. Nura Carter, for this interesting consultation. I will be happy to follow this patient with you throughout his hospital course. Berto Umana M.D. DR: VJ JOB#: [id number] CC:
[2017-09-25 11:04] LABS: BASOPHILS % (AUTO) 0.7 % (0.0-2.0); HEMATOCRIT 31.8 % (42.0-52.0); HEMOGLOBIN 10.7 G/DL (14.2-18.0); LYMPHOCYTES % (AUTO) 14.3 % (20.0-45.0); MEAN CORPUSCULAR VOLUME 92 FL (80-99); MONOCYTES % (AUTO) 10.7 % (1.0-10.0); NEUTROPHILS % (AUTO) 73.4 % (45.0-75.0); PLATELET COUNT 258 K/UL (150-450); RED BLOOD COUNT 3.47 M/UL (4.70-6.10); RED CELL DISTRIBUTION WIDTH 11.7 % (11.6-14.8); WHITE BLOOD COUNT 9.9 K/UL (4.8-10.8)
[2017-09-25 11:24] LABS: ANION GAP 6 mmol/L (5-15); BLOOD UREA NITROGEN 15 mg/dL (7-18); CALCIUM 8.1 MG/DL (8.5-10.1); CARBON DIOXIDE 29 MMOL/L (21-32); CHLORIDE 103 MMOL/L (98-107); CREATININE 0.9 MG/DL (0.55-1.30); POTASSIUM 4.1 MMOL/L (3.5-5.1); SODIUM 138 MMOL/L (136-145)
--- NOTE | 2017-09-25 11:47 | General Surgery Progress Note ---
General Surgery-Progress Note Subjective Symptoms: improved Additional Comments no acute events. Objective Last 24 Hour Vital Signs Date Time Temp Pulse Resp B/P (MAP) Pulse Ox O2 Delivery O2 Flow Rate FiO2 09/25/17 08:00 98.2 71 20 119/69 98 98.2 09/25/17 04:00 Room Air 09/25/17 04:00 97.4 74 20 115/57 92 97.4 09/25/17 00:00 97.5 76 20 119/59 93 97.5 09/25/17 00:00 Room Air 09/24/17 20:00 97.5 75 20 113/56 94 97.5 09/24/17 20:00 Room Air 09/24/17 16:00 98.2 81 18 101/62 98 Room Air 98.2 09/24/17 12:00 98.4 84 17 99/58 97 Room Air 98.4 I&O Intake and Output 09/24/17 09/25/17 19:00 07:00 Intake Total 946.667 ml 683.333 ml Output Total 650 ml Balance 296.667 ml 683.333 ml Intake Oral 240 ml IV Total 706.667 ml 683.333 ml Output Urine Total 650 ml # Voids 3 Dressing: saturated Wound: clean, intact Drains: none Cardiovascular: RSR Respiratory: clear Abdomen: soft, non-tender, present bowel sounds Extremities: no edema, no tenderness Laboratory Tests Test 09/25/17 09:50 White Blood Count 9.9 K/UL (4.8-10.8) Red Blood Count 3.47 M/UL (4.70-6.10) L Hemoglobin 10.7 G/DL (14.2-18.0) L Hematocrit 31.8 % (42.0-52.0) L Mean Corpuscular Volume 92 FL (80-99) Mean Corpuscular Hemoglobin 30.7 PG (27.0-31.0) Mean Corpuscular Hemoglobin Concent 33.6 G/DL (32.0-36.0) Red Cell Distribution Width 11.7 % (11.6-14.8) Platelet Count 258 K/UL (150-450) Mean Platelet Volume 7.3 FL (6.5-10.1) Neutrophils (%) (Auto) 73.4 % (45.0-75.0) Lymphocytes (%) (Auto) 14.3 % (20.0-45.0) L Monocytes (%) (Auto) 10.7 % (1.0-10.0) H Eosinophils (%) (Auto) 1.0 % (0.0-3.0) Basophils (%) (Auto) 0.7 % (0.0-2.0) Sodium Level Pending Potassium Level Pending Chloride Level Pending Carbon Dioxide Level Pending Blood Urea Nitrogen Pending Creatinine Pending Estimat Glomerular Filtration Rate Pending Glucose Level Pending Calcium Level Pending Plan Problems: (1) Abscess Assessment & Plan: 66M right lateral superficial chest wall abscess. Afebrile , HD stable, leukocytosis resolved. On exam has moderate sized area of induration without fluctuance. skin breakdown noted around apex. erythema, edema, warmth. no underlying abscess appreciated on exam. CT scan reviewed and moderate superficial (dermis/subcutaneous fat) area of cellulitis noted. no abscess or drainable fluid collection seen on CT. no extension to chest wall/ribs/lungs noted. -No acute surgical intervention necessary. area of cellulitis may form abscess later that may need drainage but currently no drainable fluid collection noted/ abscess noted. -keep skin clean and dry. dressing to protect skin from further breakdown. -Abx as per ID. input appreciated. -thank you for this consultation. will follow with recs. Dre Hope Sep 25, 2017 11:47
[2017-09-25 12:00] VITALS: BP 127/65
--- NOTE | 2017-09-25 13:13 | Consultation ---
History of Present Illness General Date patient seen: Sep 24, 2017 Chief Complaint: Skin Rash/Abscess Reason for Consultation: right chest wall abscess Present Illness HPI late entry for 09/24 - This is a 66-year-old male with PMH for CVA, Seizure disorder, Dyslipidemia. HTN. DM. BPH, Psychiatric disorder who was brought from [facility] due to abscesses on the right side of his chest. Patient unable to give further history given his medical condition. He had elevated BUN/Cr and nephrology was consulted. Allergies: Coded Allergies: No Known Allergies (Unverified , 01/05/13) Medication History Scheduled Buspirone Hcl* (Buspar*), 5 MG ORAL BID, (Reported) Docusate Sodium* (Docusate Sodium*), 100 MG ORAL DAILY, (Reported) Finasteride* (Proscar*), 5 MG ORAL DAILY, (Reported) Levetiracetam* (Levetiracetam*), 500 MG ORAL Q12HR, (Reported) Lisinopril (Lisinopril*), 20 MG ORAL DAILY Multivitamin With Minerals (Multivitamins With Minerals*), 1 TAB ORAL DAILY, ( Reported) Nph, Human Insulin Isophane* (Novolin N*), 12 UNITS SUBQ BEFORE BREAKFAST, ( Reported) Nph, Human Insulin Isophane* (Novolin N*), 6 UNITS SUBQ QPM, (Reported) Olanzapine* (Zyprexa*), 2.5 MG ORAL BID, (Reported) Valproate Sodium (Valproic Acid), 10 ML PO BID, (Reported) Scheduled PRN Acetaminophen* (Acetaminophen 325MG Tablet*), 650 MG ORAL Q4H PRN for Fever/ Headache/Mild Pain, (Reported) Bisacodyl (Bisacodyl), 10 MG RC for Constipation, (Reported) Magnesium Hydroxide* (Milk Of Magnesia*), 30 ML ORAL HS PRN for Constipation, ( Reported) Na Phos,M-B/Na Phos,Di-Ba* (Fleet Enema*), 133 ML RECTAL for Constipation, ( Reported) Discontinued Medications Acetaminophen* (Acetaminophen 325MG Tablet*), 650 MG ORAL Q6H PRN for Mild Pain/ Temp > 100.5 Discontinued Reason: Pt stopped taking med Al Hydroxide/mg Hydroxide (Mag-Al Liquid), 30 ML PO Q6HR PRN for GASTRIC UPSET, (Reported) Discontinued Reason: Prescription changed Clonidine Hcl* (Catapres*), 0.1 MG ORAL EVERY 4 HOURS PRN for PRN, (Reported) Discontinued Reason: Pt stopped taking med Divalproex Sodium* (Depakote Er*), 500 MG ORAL EVERY 12 HOURS, (Reported) Discontinued Reason: Prescription changed Divalproex Sodium* (Depakote*), 500 MG PO Q12HR, (Reported) Discontinued Reason: Pt stopped taking med Insulin Aspart (Novolog Flexpen), 0 UNITS SUBQ NOVOTIAC Discontinued Reason: Pt stopped taking med Lorazepam* (Ativan*), 2 MG IV Q1HR PRN for SEIZURES, (Reported) Discontinued Reason: Therapy completed Morphine Sulfate* (Morphine Sulfate*), 1 MG IV Q4HR PRN for For Pain, (Reported) Discontinued Reason: Therapy completed Ondansetron* (Zofran*), 4 MG IV Q6H PRN for Nausea & Vomiting, (Reported) Discontinued Reason: Therapy completed Polyethylene Glycol 3350* (Miralax*), 17 GM ORAL HS PRN for Constipation, ( Reported) Discontinued Reason: Pt stopped taking med Ranitidine Hcl* (Zantac*), 150 MG ORAL BEDTIME, (Reported) Discontinued Reason: Pt stopped taking med Tamsulosin HCl (Flomax), 0.4 MG ORAL BEDTIME Discontinued Reason: Pt stopped taking med Theophylline (Theodur*), 100 MG ORAL Q12HR, (Reported) Discontinued Reason: Pt stopped taking med Ziprasidone Hcl* (Geodon*), 40 MG ORAL DAILY Discontinued Reason: Pt stopped taking med Zolpidem Tartrate* (Ambien*), 5 MG ORAL BEDTIME PRN for Insomnia, (Reported) Discontinued Reason: Pt stopped taking med Patient History History Provided By: Medical Record Healthcare decision maker Resuscitation status Full Code Advanced Directive on File Past Medical/Surgical History Past Medical/Surgical History: (1) COPD (chronic obstructive pulmonary disease) (2) HTN (hypertension) (3) DM (diabetes mellitus) (4) Encephalopathy Review of Systems ROS Narrative unable to obtain Physical Exam General Appearance: WD/WN, no apparent distress HEENT: normocephalic Respiratory/Chest: lungs clear Cardiovascular/Chest: normal rate, regular rhythm Abdomen: normal bowel sounds, non tender, soft Extremities: no edema Neurologic: alert Last 24 Hour Vital Signs Date Time Temp Pulse Resp B/P (MAP) Pulse Ox O2 Delivery O2 Flow Rate FiO2 09/25/17 08:00 98.2 71 20 119/69 98 98.2 09/25/17 04:00 Room Air 09/25/17 04:00 97.4 74 20 115/57 92 97.4 09/25/17 00:00 97.5 76 20 119/59 93 97.5 09/25/17 00:00 Room Air 09/24/17 20:00 97.5 75 20 113/56 94 97.5 09/24/17 20:00 Room Air 09/24/17 16:00 98.2 81 18 101/62 98 Room Air 98.2 Intake and Output 09/24/17 09/25/17 19:00 07:00 Intake Total 946.667 ml 683.333 ml Output Total 650 ml Balance 296.667 ml 683.333 ml Intake Oral 240 ml IV Total 706.667 ml 683.333 ml Output Urine Total 650 ml # Voids 3 Laboratory Tests Test 09/25/17 09:50 White Blood Count 9.9 K/UL (4.8-10.8) Red Blood Count 3.47 M/UL (4.70-6.10) L Hemoglobin 10.7 G/DL (14.2-18.0) L Hematocrit 31.8 % (42.0-52.0) L Mean Corpuscular Volume 92 FL (80-99) Mean Corpuscular Hemoglobin 30.7 PG (27.0-31.0) Mean Corpuscular Hemoglobin Concent 33.6 G/DL (32.0-36.0) Red Cell Distribution Width 11.7 % (11.6-14.8) Platelet Count 258 K/UL (150-450) Mean Platelet Volume 7.3 FL (6.5-10.1) Neutrophils (%) (Auto) 73.4 % (45.0-75.0) Lymphocytes (%) (Auto) 14.3 % (20.0-45.0) L Monocytes (%) (Auto) 10.7 % (1.0-10.0) H Eosinophils (%) (Auto) 1.0 % (0.0-3.0) Basophils (%) (Auto) 0.7 % (0.0-2.0) Sodium Level 138 MMOL/L (136-145) Potassium Level 4.1 MMOL/L (3.5-5.1) Chloride Level 103 MMOL/L (98-107) Carbon Dioxide Level 29 MMOL/L (21-32) Anion Gap 6 mmol/L (5-15) Blood Urea Nitrogen 15 mg/dL (7-18) Creatinine 0.9 MG/DL (0.55-1.30) Estimat Glomerular Filtration Rate > 60 mL/min (>60) Glucose Level 218 MG/DL (74-106) H Calcium Level 8.1 MG/DL (8.5-10.1) L Height (Feet): 5 Height (Inches): 4.00 Weight (Pounds): 139 Medications Current Medications Medications (Trade) Dose Ordered Sig/Kun Route PRN Reason Start Time Stop Time Status Last Admin Dose Admin Acetaminophen (Tylenol) 650 mg Q4H PRN ORAL Fever/Headache/Mild Pain 09/23/17 21:15 10/23/17 21:14 Bisacodyl (Dulcolax) 10 mg DAILYPRN PRN RECTAL Constipation 09/23/17 21:15 10/23/17 21:14 Buspirone HCl (Buspar) 5 mg BID ORAL 09/23/17 21:15 10/23/17 21:14 09/24/17 09:36 Dextrose (Dextrose 50%) STAT PRN IV Hypoglycemia 09/23/17 21:15 10/23/17 21:14 Dextrose/Sodium Chloride 1,000 ml @ 60 mls/hr [id number] IV 09/23/17 22:00 10/23/17 21:59 09/25/17 06:05 Docusate Sodium (Colace) 100 mg DAILY ORAL 09/24/17 09:00 10/24/17 08:59 09/24/17 09:05 Finasteride (Proscar) 5 mg DAILY ORAL 09/24/17 09:00 10/24/17 08:59 09/24/17 09:05 Heparin Sodium (Porcine) (Heparin 5000 units/ml) 5,000 units EVERY 12 HOURS SUBQ 09/24/17 09:00 10/24/17 08:59 09/24/17 20:44 Insulin Aspart (NovoLOG) BEFORE MEALS AND HS SUBQ 09/24/17 06:30 10/24/17 06:29 09/25/17 06:08 Levetiracetam (Keppra) 500 mg Q12HR ORAL 09/23/17 21:15 10/23/17 21:14 09/24/17 20:43 Lisinopril (Prinivil) 20 mg DAILY ORAL 09/24/17 09:00 10/24/17 08:59 Magnesium Hydroxide (Mom) 30 ml DAILYPRN PRN ORAL Constipation 09/23/17 21:15 10/23/17 21:14 Olanzapine (ZyPREXA) 2.5 mg BID ORAL 09/24/17 09:00 10/24/17 08:59 09/24/17 09:05 Valproic Acid (Depakene) 250 mg TWICE A DAY ORAL 09/24/17 09:00 10/24/17 08:59 09/24/17 09:05 Vancomycin HCl (Vanco rx to dose) 1 ea DAILY PRN MISC Per rx protocol 09/23/17 20:45 10/23/17 20:44 Vancomycin HCl/ Dextrose 250 ml @ 166.667 mls/hr Q24H IVPB 09/24/17 18:00 09/29/17 17:59 09/24/17 17:43 Assessment/Plan Problem List: (1) Abscess ICD Codes: L02.91 - Cutaneous abscess, unspecified SNOMED: 469647373 (2) HTN (hypertension) ICD Codes: I10 - Hypertension SNOMED: 90658483 (3) DM (diabetes mellitus) ICD Codes: E11.9 - Diabetes mellitus SNOMED: 83249021 (4) Encephalopathy ICD Codes: G93.40 - Encephalopathy, unspecified SNOMED: 54493481 (5) Sepsis ICD Codes: A41.9 - Sepsis, unspecified organism SNOMED: 27343705 (6) Prerenal azotemia ICD Codes: R79.89 - Other specified abnormal findings of blood chemistry SNOMED: 591416904 Assessment/Plan cont IVF. Monitor renal function. Monitor I/O. s Avoid nephrotoxic meds. Monitor labs. Best reis thanks. MARTA HARMAN Sep 25, 2017 13:13
--- NOTE | 2017-09-25 14:27 | Wound Care Consultation ---
Wound Assessment Wound Assessment : Wound Number: 1 Wound Present on Admission: Yes New Wound: No Status Change of Wound: No Wound Location Body Site Modif: right Wound Location Body Site: other - flank Wound Type: abscess Geraldo Test: Does not Geraldo Wound Thickness: Full Thickness Wound Length: 2.5 Wound Width: 3.5 Wound Depth: utd Percent of Wound [place]/Red: 100 Wound Drainage Description: Serosanguineous Wound Drainage Amount: Moderate Wound Drainage Odor: None/Absent Tissue Surrounding Wound: Erythemic - and indurated Wound General Appearance: Draining Wound Comment #1 Right flank abscess Recommendation -Cleanse with saline, pat dry, apply Xeroform gauze, cover with Biatain silicone drg daily and PRN soiled/dislodged -Optimize nutrition -Keep clean and dry -Assess and f/u with MD for any changes ELPIDIO GUALLPA RN Sep 25, 2017 14:27
--- NOTE | 2017-09-25 14:29 | General Progress Note ---
Assessment/Plan Problem List: (1) Seizure ICD Codes: R56.9 - Unspecified convulsions SNOMED: 14385355 (2) Renal insufficiency ICD Codes: N28.9 - Disorder of kidney and ureter, unspecified SNOMED: 793848265, 657644199 (3) HTN (hypertension) ICD Codes: I10 - Hypertension SNOMED: 58752533 (4) DM (diabetes mellitus) ICD Codes: E11.9 - Diabetes mellitus SNOMED: 95933791 (5) COPD with acute exacerbation ICD Codes: J44.1 - Chronic obstructive pulmonary disease with (acute) exacerbation SNOMED: 632343242 (6) Episode of generalized weakness ICD Codes: R53.1 - Weakness SNOMED: 41403251 (7) Acute CVA (cerebrovascular accident) ICD Codes: I63.9 - Acute CVA (cerebrovascular accident) SNOMED: 442429613 (8) Abscess ICD Codes: L02.91 - Cutaneous abscess, unspecified SNOMED: 151951009 Status: unchanged Assessment/Plan ot pt diet wound care abx cbc bmp am Subjective Constitutional: Reports: weakness Allergies: Coded Allergies: No Known Allergies (Unverified , 01/05/13) All Systems: reviewed and negative except above Subjective sleepy in bed Objective Last 24 Hour Vital Signs Date Time Temp Pulse Resp B/P (MAP) Pulse Ox O2 Delivery O2 Flow Rate FiO2 09/25/17 12:00 97.7 71 20 127/65 98 97.7 09/25/17 08:00 98.2 71 20 119/69 98 98.2 09/25/17 04:00 Room Air 09/25/17 04:00 97.4 74 20 115/57 92 97.4 09/25/17 00:00 97.5 76 20 119/59 93 97.5 09/25/17 00:00 Room Air 09/24/17 20:00 97.5 75 20 113/56 94 97.5 09/24/17 20:00 Room Air 09/24/17 16:00 98.2 81 18 101/62 98 Room Air 98.2 Intake and Output 09/24/17 09/25/17 19:00 07:00 Intake Total 946.667 ml 683.333 ml Output Total 650 ml Balance 296.667 ml 683.333 ml Intake Oral 240 ml IV Total 706.667 ml 683.333 ml Output Urine Total 650 ml # Voids 3 Laboratory Tests 09/25/17 09:50: White Blood Count 9.9, Red Blood Count 3.47L, Hemoglobin 10.7L, Hematocrit 31.8L , Mean Corpuscular Volume 92, Mean Corpuscular Hemoglobin 30.7, Mean Corpuscular Hemoglobin Concent 33.6, Red Cell Distribution Width 11.7, Platelet Count 258, Mean Platelet Volume 7.3, Neutrophils (%) (Auto) 73.4, Lymphocytes (% ) (Auto) 14.3L, Monocytes (%) (Auto) 10.7H, Eosinophils (%) (Auto) 1.0, Basophils (%) (Auto) 0.7, Sodium Level 138, Potassium Level 4.1, Chloride Level 103, Carbon Dioxide Level 29, Anion Gap 6, Blood Urea Nitrogen 15, Creatinine 0.9, Estimat Glomerular Filtration Rate > 60, Glucose Level 218H, Calcium Level 8.1L Height (Feet): 5 Height (Inches): 4.00 Weight (Pounds): 139 General Appearance: lethargic EENT: normal ENT inspection Neck: normal alignment Cardiovascular: normal peripheral pulses, normal rate, regular rhythm Respiratory/Chest: chest wall non-tender, lungs clear, normal breath sounds Abdomen: normal bowel sounds, non tender, soft Extremities: normal inspection Edema: no edema noted Arm (L), no edema noted Arm (R), no edema noted Leg (L), no edema noted Leg (R), no edema noted Pedal (L), no edema noted Pedal (R), no edema noted Generalized Neurologic: motor weakness Skin: normal pigmentation, warm/dry FABIO GASTEULM Sep 25, 2017 14:29
[2017-09-25 16:00] VITALS: BP 139/62
[2017-09-25] MEDS: Vancomycin 1250mg/D5W 250ml IVPB SCH (19:00)
--- NOTE | 2017-09-25 19:09 | Infectious Diseases Prog Note ---
Assessment/Plan Assessment/Plan ASSESSMENT: The patient is a 66-year-old male with: 1. Leukocytosis, resolved. 2. Right chest cellulitis, 2ry to S. aureus- r/o MRSA- monitor for development of abscess -woudn cx S. aureus (sensi pending) -CT chest: Partially visualized soft tissue swelling and skin thickening about the right lateral mid/lower back as detailed above. Correlate with physical exam assess for cellulitis. Evaluation is limited without contrast and the presence of a rim-enhancing fluid collection/abscess cannot be well established. Consider focused ultrasound evaluation to assess for fluid component. Opacities in the left lower lobe may related to atelectasis, scarring , infection or inflammation. Please note that evaluation of the lungs is limited due to significant respiratory motion. 3. Rule out bacteremia. -. CVA. - Seizure disorder. -. History of dysphagia in the past. -. Hyperlipidemia. -. Hypertension. -. BPH. -. Diabetes. -. Schizophrenia. -. Depression/anxiety. PLAN: 1. We will continue the patient on IV vancomycin #09/16- pending S. aureus sensi.; may be able to switch to PO once improved and pending susceptibilities. 2. Monitor CBC. 3. Monitor BMP. 4. Monitor cultures (blood, wound). 5. Monitor CBC. 6. Monitor BMP. 7. Monitor chest x-ray. 8. appreciate surgical input- will monitor closely for developement of abscess and need for I+D. Thank you, Dr. Nura Carter, for allowing me to participate in the care of the patient. We will follow the patient for surgical evaluation and recommendation for possible incision and drainage. Subjective Allergies: Coded Allergies: No Known Allergies (Unverified , 01/05/13) Subjective afebrile leukocytosis resolved Objective Vital Signs Last 24 Hour Vital Signs Date Time Temp Pulse Resp B/P (MAP) Pulse Ox O2 Delivery O2 Flow Rate FiO2 09/25/17 16:00 97.2 77 18 139/62 97 97.2 09/25/17 12:00 97.7 71 20 127/65 98 97.7 09/25/17 08:00 98.2 71 20 119/69 98 98.2 09/25/17 04:00 Room Air 09/25/17 04:00 97.4 74 20 115/57 92 97.4 09/25/17 00:00 97.5 76 20 119/59 93 97.5 09/25/17 00:00 Room Air 09/24/17 20:00 97.5 75 20 113/56 94 97.5 09/24/17 20:00 Room Air Height (Feet): 5 Height (Inches): 4.00 Weight (Pounds): 139 Objective HEENT: No pale conjunctivae. No icterus. NECK: No lymphadenopathy. CHEST: Clear. The patient has right lower chest abscess with erythema and cellulitis in the area, mild purulent discharge. ABDOMEN: Soft. EXTREMITIES: No cyanosis. NEUROLOGIC: Awake. Microbiology Date/Time Source Procedure Growth Status 09/23/17 17:05 Blood Blood Culture - Preliminary NO GROWTH AFTER 24 HOURS Resulted 09/23/17 17:05 Blood Blood Culture - Preliminary NO GROWTH AFTER 24 HOURS Resulted 09/23/17 20:00 Nasal Nares MRSA Culture - Final NO METHICILLIN RESISTANT STAPH AUREUS... Complete 09/23/17 23:30 Back Gram Stain - Final Resulted 09/23/17 23:30 Wound Culture - Preliminary Staphylococcus Aureus Resulted Laboratory Tests Test 09/25/17 09:50 White Blood Count 9.9 K/UL (4.8-10.8) Red Blood Count 3.47 M/UL (4.70-6.10) L Hemoglobin 10.7 G/DL (14.2-18.0) L Hematocrit 31.8 % (42.0-52.0) L Mean Corpuscular Volume 92 FL (80-99) Mean Corpuscular Hemoglobin 30.7 PG (27.0-31.0) Mean Corpuscular Hemoglobin Concent 33.6 G/DL (32.0-36.0) Red Cell Distribution Width 11.7 % (11.6-14.8) Platelet Count 258 K/UL (150-450) Mean Platelet Volume 7.3 FL (6.5-10.1) Neutrophils (%) (Auto) 73.4 % (45.0-75.0) Lymphocytes (%) (Auto) 14.3 % (20.0-45.0) L Monocytes (%) (Auto) 10.7 % (1.0-10.0) H Eosinophils (%) (Auto) 1.0 % (0.0-3.0) Basophils (%) (Auto) 0.7 % (0.0-2.0) Sodium Level 138 MMOL/L (136-145) Potassium Level 4.1 MMOL/L (3.5-5.1) Chloride Level 103 MMOL/L (98-107) Carbon Dioxide Level 29 MMOL/L (21-32) Anion Gap 6 mmol/L (5-15) Blood Urea Nitrogen 15 mg/dL (7-18) Creatinine 0.9 MG/DL (0.55-1.30) Estimat Glomerular Filtration Rate > 60 mL/min (>60) Glucose Level 218 MG/DL (74-106) H Calcium Level 8.1 MG/DL (8.5-10.1) L Current Medications Medications (Trade) Dose Ordered Sig/Kun Route PRN Reason Start Time Stop Time Status Last Admin Dose Admin Acetaminophen (Tylenol) 650 mg Q4H PRN ORAL Fever/Headache/Mild Pain 09/23/17 21:15 10/23/17 21:14 Bisacodyl (Dulcolax) 10 mg DAILYPRN PRN RECTAL Constipation 09/23/17 21:15 10/23/17 21:14 Buspirone HCl (Buspar) 5 mg BID ORAL 09/23/17 21:15 10/23/17 21:14 09/24/17 09:36 Dextrose (Dextrose 50%) STAT PRN IV Hypoglycemia 09/23/17 21:15 10/23/17 21:14 Dextrose/Sodium Chloride 1,000 ml @ 60 mls/hr [id number] IV 09/23/17 22:00 10/23/17 21:59 09/25/17 06:05 Docusate Sodium (Colace) 100 mg DAILY ORAL 09/24/17 09:00 10/24/17 08:59 09/24/17 09:05 Finasteride (Proscar) 5 mg DAILY ORAL 09/24/17 09:00 10/24/17 08:59 09/24/17 09:05 Heparin Sodium (Porcine) (Heparin 5000 units/ml) 5,000 units EVERY 12 HOURS SUBQ 09/24/17 09:00 10/24/17 08:59 09/24/17 20:44 Insulin Aspart (NovoLOG) BEFORE MEALS AND HS SUBQ 09/24/17 06:30 10/24/17 06:29 09/25/17 06:08 Levetiracetam (Keppra) 500 mg Q12HR ORAL 09/23/17 21:15 10/23/17 21:14 09/24/17 20:43 Lisinopril (Prinivil) 20 mg DAILY ORAL 09/24/17 09:00 10/24/17 08:59 Magnesium Hydroxide (Mom) 30 ml DAILYPRN PRN ORAL Constipation 09/23/17 21:15 10/23/17 21:14 Olanzapine (ZyPREXA) 2.5 mg BID ORAL 09/24/17 09:00 10/24/17 08:59 09/24/17 09:05 Valproic Acid (Depakene) 250 mg TWICE A DAY ORAL 09/24/17 09:00 10/24/17 08:59 09/24/17 09:05 Vancomycin HCl (Vanco rx to dose) 1 ea DAILY PRN MISC Per rx protocol 09/23/17 20:45 10/23/17 20:44 Vancomycin HCl/ Dextrose 250 ml @ 166.667 mls/hr Q24H IVPB 09/24/17 18:00 09/29/17 17:59 09/24/17 17:43 Shell Niño M.D. Sep 25, 2017 19:09
[2017-09-25 20:00] VITALS: BP 110/56
[2017-09-26] VITALS: BP 114/64
[2017-09-26] MEDS: D5 1/2NS 1,000 ML IV SCH ×2 (02:29→16:40)
[2017-09-26 04:00] VITALS: BP 100/53
[2017-09-26] MEDS: NovoLOG Insulin Flexpen SUBQ SCH ×4 (05:41→20:44)
[2017-09-26 08:00] VITALS: BP 123/56
[2017-09-26] MEDS: Lisinopril 20mg tab ORAL SCH ×2 (09:00→09:55)
[2017-09-26] MEDS: BusPIRone 5mg Tab ORAL SCH ×3 (09:00→17:12)
[2017-09-26] MEDS: Docusate 100mg cap ORAL SCH (09:00)
[2017-09-26] MEDS: OLANZapine 2.5mg tab ORAL SCH ×3 (09:00→17:12)
[2017-09-26 09:25] LABS: BASOPHILS % (AUTO) 0.9 % (0.0-2.0); EOSINOPHILS % (AUTO) 1.5 % (0.0-3.0); HEMATOCRIT 31.3 % (42.0-52.0); HEMOGLOBIN 10.5 G/DL (14.2-18.0); LYMPHOCYTES % (AUTO) 14.6 % (20.0-45.0); MEAN CORPUSCULAR VOLUME 91 FL (80-99); MONOCYTES % (AUTO) 10.2 % (1.0-10.0); NEUTROPHILS % (AUTO) 72.9 % (45.0-75.0); PLATELET COUNT 284 K/UL (150-450); RED BLOOD COUNT 3.44 M/UL (4.70-6.10); RED CELL DISTRIBUTION WIDTH 11.4 % (11.6-14.8); WHITE BLOOD COUNT 8.1 K/UL (4.8-10.8)
[2017-09-26] MEDS: Heparin 5000 units/ml inj SUBQ SCH ×2 (09:56→20:45)
[2017-09-26 10:03] LABS: ANION GAP 8 mmol/L (5-15); BLOOD UREA NITROGEN 13 mg/dL (7-18); CALCIUM 8.4 MG/DL (8.5-10.1); CARBON DIOXIDE 27 MMOL/L (21-32); CHLORIDE 103 MMOL/L (98-107); POTASSIUM 4.1 MMOL/L (3.5-5.1); SODIUM 138 MMOL/L (136-145)
[2017-09-26 12:00] VITALS: BP 118/66
[2017-09-26] MEDS ORDERED: Haloperidol Decanoate 50mg Inj IM SCH (13:00)
--- NOTE | 2017-09-26 13:17 | General Surgery Progress Note ---
General Surgery-Progress Note Subjective Symptoms: improved, pain same Objective Last 24 Hour Vital Signs Date Time Temp Pulse Resp B/P (MAP) Pulse Ox O2 Delivery O2 Flow Rate FiO2 09/26/17 12:00 97.7 72 19 118/66 93 97.7 09/26/17 09:00 123/56 09/26/17 08:00 98.1 79 18 123/56 93 98.1 09/26/17 04:00 98.4 66 20 100/53 95 98.4 09/26/17 00:00 98.2 73 21 114/64 95 98.2 09/25/17 20:00 98.4 74 19 110/56 96 98.4 09/25/17 16:00 97.2 77 18 139/62 97 97.2 I&O Intake and Output 09/25/17 09/26/17 19:00 07:00 Intake Total 270 ml 550.000 ml Output Total 800 ml Balance 270 ml -250.000 ml Intake Oral 270 ml IV Total 550.000 ml Output Urine Total 800 ml # Voids 2 # Bowel Movements 1 Dressing: saturated Wound: clean, intact, other - cellulitis improving. no abscses noted still Drains: none Cardiovascular: RSR Respiratory: clear Abdomen: soft, flat, non-tender, present bowel sounds Extremities: no cyanosis Laboratory Tests Test 09/26/17 09:00 White Blood Count 8.1 K/UL (4.8-10.8) Red Blood Count 3.44 M/UL (4.70-6.10) L Hemoglobin 10.5 G/DL (14.2-18.0) L Hematocrit 31.3 % (42.0-52.0) L Mean Corpuscular Volume 91 FL (80-99) Mean Corpuscular Hemoglobin 30.5 PG (27.0-31.0) Mean Corpuscular Hemoglobin Concent 33.5 G/DL (32.0-36.0) Red Cell Distribution Width 11.4 % (11.6-14.8) L Platelet Count 284 K/UL (150-450) Mean Platelet Volume 6.6 FL (6.5-10.1) Neutrophils (%) (Auto) 72.9 % (45.0-75.0) Lymphocytes (%) (Auto) 14.6 % (20.0-45.0) L Monocytes (%) (Auto) 10.2 % (1.0-10.0) H Eosinophils (%) (Auto) 1.5 % (0.0-3.0) Basophils (%) (Auto) 0.9 % (0.0-2.0) Sodium Level 138 MMOL/L (136-145) Potassium Level 4.1 MMOL/L (3.5-5.1) Chloride Level 103 MMOL/L (98-107) Carbon Dioxide Level 27 MMOL/L (21-32) Anion Gap 8 mmol/L (5-15) Blood Urea Nitrogen 13 mg/dL (7-18) Creatinine 1.0 MG/DL (0.55-1.30) Estimat Glomerular Filtration Rate > 60 mL/min (>60) Glucose Level 237 MG/DL (74-106) H Calcium Level 8.4 MG/DL (8.5-10.1) L Plan Problems: (1) Abscess Assessment & Plan: 66M right lateral superficial chest wall abscess. Afebrile , HD stable, leukocytosis resolved. On exam has moderate sized area of induration without fluctuance. skin breakdown noted around apex. erythema, edema, warmth. no underlying abscess appreciated on exam. CT scan reviewed and moderate superficial (dermis/subcutaneous fat) area of cellulitis noted. no abscess or drainable fluid collection seen on CT. no extension to chest wall/ribs/lungs noted. -No acute surgical intervention necessary. area of cellulitis may form abscess later that may need drainage but currently no drainable fluid collection noted/ abscess noted. -keep skin clean and dry. dressing to protect skin from further breakdown. -Abx as per ID. input appreciated. -thank you for this consultation. will follow with recs. Dre Hope Sep 26, 2017 13:17
--- NOTE | 2017-09-26 13:18 | Infectious Diseases Prog Note ---
Assessment/Plan Assessment/Plan ASSESSMENT: The patient is a 66-year-old male with: 1. Leukocytosis, resolved. 2. Right chest cellulitis, 2ry to MRSA- monitor for development of abscess -woudn cx MRSA (S vancomycin, bactrim, tetracycline) -CT chest: Partially visualized soft tissue swelling and skin thickening about the right lateral mid/lower back as detailed above. Correlate with physical exam assess for cellulitis. Evaluation is limited without contrast and the presence of a rim-enhancing fluid collection/abscess cannot be well established. Consider focused ultrasound evaluation to assess for fluid component. Opacities in the left lower lobe may related to atelectasis, scarring , infection or inflammation. Please note that evaluation of the lungs is limited due to significant respiratory motion. -Bcx NTD -. CVA. - Seizure disorder. -. History of dysphagia in the past. -. Hyperlipidemia. -. Hypertension. -. BPH. -. Diabetes. -. Schizophrenia. -. Depression/anxiety. PLAN: 1. We will continue the patient on IV vancomycin #10/17- for MRSA cellulitis.; will switch to PO Bactrim or Doxycycline once further improvement. 2. Monitor CBC. 3. Monitor BMP. 4. Monitor cultures (blood, wound). 5. Monitor CBC. 6. Monitor BMP. 7. Monitor chest x-ray. 8. appreciate surgical input- will monitor closely for development of abscess and need for I+D. Thank you, Dr. Nura Carter, for allowing me to participate in the care of the patient. We will follow the patient for surgical evaluation and recommendation for possible incision and drainage. Subjective Allergies: Coded Allergies: No Known Allergies (Unverified , 01/05/13) Subjective afebrile leukocytosis resolved Bcx NTD wound cx gerw MRSA Objective Vital Signs Last 24 Hour Vital Signs Date Time Temp Pulse Resp B/P (MAP) Pulse Ox O2 Delivery O2 Flow Rate FiO2 09/26/17 12:00 97.7 72 19 118/66 93 97.7 09/26/17 09:00 123/56 09/26/17 08:00 98.1 79 18 123/56 93 98.1 09/26/17 04:00 98.4 66 20 100/53 95 98.4 09/26/17 00:00 98.2 73 21 114/64 95 98.2 09/25/17 20:00 98.4 74 19 110/56 96 98.4 09/25/17 16:00 97.2 77 18 139/62 97 97.2 Height (Feet): 5 Height (Inches): 4.00 Weight (Pounds): 139 Objective HEENT: No pale conjunctivae. No icterus. NECK: No lymphadenopathy. CHEST: Clear. The patient has right posterior lower chest area of erythema, induration, TTP and purulent discharge- has not yet formed into abscess ABDOMEN: Soft. EXTREMITIES: No cyanosis. NEUROLOGIC: Awake. Microbiology Date/Time Source Procedure Growth Status 09/23/17 17:05 Blood Blood Culture - Preliminary NO GROWTH AFTER 48 HOURS Resulted 09/23/17 17:05 Blood Blood Culture - Preliminary NO GROWTH AFTER 48 HOURS Resulted 09/23/17 20:00 Nasal Nares MRSA Culture - Final NO METHICILLIN RESISTANT STAPH AUREUS... Complete 09/23/17 23:30 Back Gram Stain - Final Resulted 09/23/17 23:30 Wound Culture - Preliminary Staphylococcus Aureus - Mrsa Resulted Laboratory Tests Test 09/26/17 09:00 White Blood Count 8.1 K/UL (4.8-10.8) Red Blood Count 3.44 M/UL (4.70-6.10) L Hemoglobin 10.5 G/DL (14.2-18.0) L Hematocrit 31.3 % (42.0-52.0) L Mean Corpuscular Volume 91 FL (80-99) Mean Corpuscular Hemoglobin 30.5 PG (27.0-31.0) Mean Corpuscular Hemoglobin Concent 33.5 G/DL (32.0-36.0) Red Cell Distribution Width 11.4 % (11.6-14.8) L Platelet Count 284 K/UL (150-450) Mean Platelet Volume 6.6 FL (6.5-10.1) Neutrophils (%) (Auto) 72.9 % (45.0-75.0) Lymphocytes (%) (Auto) 14.6 % (20.0-45.0) L Monocytes (%) (Auto) 10.2 % (1.0-10.0) H Eosinophils (%) (Auto) 1.5 % (0.0-3.0) Basophils (%) (Auto) 0.9 % (0.0-2.0) Sodium Level 138 MMOL/L (136-145) Potassium Level 4.1 MMOL/L (3.5-5.1) Chloride Level 103 MMOL/L (98-107) Carbon Dioxide Level 27 MMOL/L (21-32) Anion Gap 8 mmol/L (5-15) Blood Urea Nitrogen 13 mg/dL (7-18) Creatinine 1.0 MG/DL (0.55-1.30) Estimat Glomerular Filtration Rate > 60 mL/min (>60) Glucose Level 237 MG/DL (74-106) H Calcium Level 8.4 MG/DL (8.5-10.1) L Current Medications Medications (Trade) Dose Ordered Sig/Kun Route PRN Reason Start Time Stop Time Status Last Admin Dose Admin Acetaminophen (Tylenol) 650 mg Q4H PRN ORAL Fever/Headache/Mild Pain 09/23/17 21:15 10/23/17 21:14 Bisacodyl (Dulcolax) 10 mg DAILYPRN PRN RECTAL Constipation 09/23/17 21:15 10/23/17 21:14 Buspirone HCl (Buspar) 5 mg BID ORAL 09/23/17 21:15 10/23/17 21:14 09/24/17 09:36 Dextrose (Dextrose 50%) STAT PRN IV Hypoglycemia 09/23/17 21:15 10/23/17 21:14 Dextrose/Sodium Chloride 1,000 ml @ 60 mls/hr [id number] IV 09/23/17 22:00 10/23/17 21:59 09/26/17 02:29 Docusate Sodium (Colace) 100 mg DAILY ORAL 09/24/17 09:00 10/24/17 08:59 09/24/17 09:05 Finasteride (Proscar) 5 mg DAILY ORAL 09/24/17 09:00 10/24/17 08:59 09/24/17 09:05 Haloperidol Decanoate (Haldol) 50 mg [id number] IM 09/26/17 13:00 10/26/17 12:59 Heparin Sodium (Porcine) (Heparin 5000 units/ml) 5,000 units EVERY 12 HOURS SUBQ 09/24/17 09:00 10/24/17 08:59 09/26/17 09:56 Insulin Aspart (NovoLOG) BEFORE MEALS AND HS SUBQ 09/24/17 06:30 4/17/18 06:29 09/26/17 12:42 Levetiracetam (Keppra) 500 mg Q12HR ORAL 09/23/17 21:15 10/23/17 21:14 09/24/17 20:43 Lisinopril (Prinivil) 20 mg DAILY ORAL 09/24/17 09:00 10/24/17 08:59 Magnesium Hydroxide (Mom) 30 ml DAILYPRN PRN ORAL Constipation 09/23/17 21:15 10/23/17 21:14 Olanzapine (ZyPREXA) 2.5 mg BID ORAL 09/24/17 09:00 10/24/17 08:59 09/24/17 09:05 Valproic Acid (Depakene) 250 mg TWICE A DAY ORAL 09/24/17 09:00 10/24/17 08:59 09/24/17 09:05 Vancomycin HCl (Vanco rx to dose) 1 ea DAILY PRN MISC Per rx protocol 09/23/17 20:45 10/23/17 20:44 Vancomycin HCl/ Dextrose 250 ml @ 166.667 mls/hr Q24H IVPB 09/24/17 18:00 09/29/17 17:59 09/25/17 19:00 Shell Niño M.D. Sep 26, 2017 13:18
--- NOTE | 2017-09-26 14:18 | General Progress Note ---
Assessment/Plan Problem List: (1) Seizure ICD Codes: R56.9 - Unspecified convulsions SNOMED: 25555290 (2) Renal insufficiency ICD Codes: N28.9 - Disorder of kidney and ureter, unspecified SNOMED: 016256350, 113308388 (3) HTN (hypertension) ICD Codes: I10 - Hypertension SNOMED: 79426611 (4) DM (diabetes mellitus) ICD Codes: E11.9 - Diabetes mellitus SNOMED: 29526619 (5) COPD with acute exacerbation ICD Codes: J44.1 - Chronic obstructive pulmonary disease with (acute) exacerbation SNOMED: 281271166 (6) Episode of generalized weakness ICD Codes: R53.1 - Weakness SNOMED: 13797769 (7) Acute CVA (cerebrovascular accident) ICD Codes: I63.9 - Acute CVA (cerebrovascular accident) SNOMED: 581118612 (8) Abscess ICD Codes: L02.91 - Cutaneous abscess, unspecified SNOMED: 711942243 Status: unchanged Assessment/Plan ot pt diet wound care abx cbc bmp am psyc transfer Subjective Constitutional: Reports: weakness Allergies: Coded Allergies: No Known Allergies (Unverified , 01/05/13) All Systems: reviewed and negative except above Subjective sleepy in bed refusing meds Objective Last 24 Hour Vital Signs Date Time Temp Pulse Resp B/P (MAP) Pulse Ox O2 Delivery O2 Flow Rate FiO2 09/26/17 12:00 97.7 72 19 118/66 93 97.7 09/26/17 09:00 123/56 09/26/17 08:00 98.1 79 18 123/56 93 98.1 09/26/17 04:00 98.4 66 20 100/53 95 98.4 09/26/17 00:00 98.2 73 21 114/64 95 98.2 09/25/17 20:00 98.4 74 19 110/56 96 98.4 09/25/17 16:00 97.2 77 18 139/62 97 97.2 Intake and Output 09/25/17 09/26/17 19:00 07:00 Intake Total 270 ml 550.000 ml Output Total 800 ml Balance 270 ml -250.000 ml Intake Oral 270 ml IV Total 550.000 ml Output Urine Total 800 ml # Voids 2 # Bowel Movements 1 Laboratory Tests 09/26/17 09:00: White Blood Count 8.1, Red Blood Count 3.44L, Hemoglobin 10.5L, Hematocrit 31.3L , Mean Corpuscular Volume 91, Mean Corpuscular Hemoglobin 30.5, Mean Corpuscular Hemoglobin Concent 33.5, Red Cell Distribution Width 11.4L, Platelet Count 284, Mean Platelet Volume 6.6, Neutrophils (%) (Auto) 72.9, Lymphocytes (%) (Auto) 14.6L, Monocytes (%) (Auto) 10.2H, Eosinophils (%) (Auto ) 1.5, Basophils (%) (Auto) 0.9, Sodium Level 138, Potassium Level 4.1, Chloride Level 103, Carbon Dioxide Level 27, Anion Gap 8, Blood Urea Nitrogen 13 , Creatinine 1.0, Estimat Glomerular Filtration Rate > 60, Glucose Level 237H, Calcium Level 8.4L Height (Feet): 5 Height (Inches): 4.00 Weight (Pounds): 139 General Appearance: lethargic, confused EENT: normal ENT inspection Neck: normal alignment Cardiovascular: normal peripheral pulses, normal rate, regular rhythm Respiratory/Chest: chest wall non-tender, lungs clear, normal breath sounds Abdomen: normal bowel sounds, non tender, soft Extremities: normal inspection Edema: no edema noted Arm (L), no edema noted Arm (R), no edema noted Leg (L), no edema noted Leg (R), no edema noted Pedal (L), no edema noted Pedal (R), no edema noted Generalized Neurologic: motor weakness Skin: normal pigmentation, warm/dry FABIO GASTELUM Sep 26, 2017 14:18
[2017-09-26 16:00] VITALS: BP 136/72
[2017-09-26] MEDS: Valproic Acid 250mg/5ml Liquid ORAL SCH (17:12)
[2017-09-26] MEDS: Vancomycin 1250mg/D5W 250ml IVPB SCH (17:50)
--- NOTE | 2017-09-26 18:43 | Cardiology Report ---
APPROVED REPORT EKG Measurement Heart [id number] OR 118P [id number] Normal sinus rhythm Left axis deviation Right bundle branch block Abnormal ECG
[2017-09-26 20:00] VITALS: BP 101/51
[2017-09-26] MEDS: levETIRAcetam 500mg/5ml Liquid ORAL SCH (20:38)
[2017-09-27] VITALS: BP 103/46
[2017-09-27] MEDS: Vancomycin 750mg/NS 250ml IVPB SCH ×2 (01:25→14:07)
--- NOTE | 2017-09-27 02:46 | Progress Note ---
DATE: 09/26/2017 NOTE: POOR AUDIO SUBJECTIVE: The patient is a 66-year-old male patient extreme mood lability. That is why his attending has requested daily psychiatric consultation. As far as this patient's he is confused, disorganized, some slight agitation. MENTAL STATUS EXAMINATION: This is a 66-year-old male with psychomotor . Affect is guarded and restricted. Thought process, disorganized and illogical. Does not have any suicidal or homicidal thoughts. Insight and judgment is poor. DIAGNOSIS: Schizoaffective, bipolar type. PLAN: Treat him with Zyprexa 2.5 mg twice a day, Depakote 250 mg twice a day, and BuSpar 5 mg twice a day. Provided 18 to 20 minutes of supportive therapy. Encouraged him to interact appropriately with staff and other patients. Chart reviewed and discussed with staff. Seen and assessed at bedside. Betro Umana M.D. DR: SARAH JOB#: [id number] CC:
--- NOTE | 2017-09-27 04:16 | Progress Note ---
DATE: 09/25/2017 PSYCHOTHERAPY CONSULTATION PROGRESS NOTE TREATING ATTENDING PHYSICIAN: Nura Carter D.O. SUBJECTIVE: The patient is a 66-year-old male patient. The patient is from [facility]. The patient has been confused and disorganized in his mental status. He is communicative, has anxiety and feelings of helplessness. He remains slightly disorganized. He requires frequent redirection and reality orientation. DIAGNOSIS: Schizophrenia, paranoid type. PLAN: This clinician assessed this patient. The patient states that he wants to be able to return back to his nursing facility and . Provided the patient with reality orientation and provided the patient with supportive psychotherapy. Encouraging the patient to participate in treatment milieu. Adjusting the patient's poor frustration tolerance and confusion. This clinician has reviewed the patient's chart and discussed the treatment with treatment team. Beulah Villavicencio PsyD. DR: Carlos JOB#: [id number] CC:
[2017-09-27 04:33] VITALS: BP 143/68
[2017-09-27] MEDS: NovoLOG Insulin Flexpen SUBQ SCH ×3 (05:38→17:42)
[2017-09-27 09:00] VITALS: BP 116/66
[2017-09-27] MEDS: levETIRAcetam 500mg/5ml Liquid ORAL SCH (09:00)
[2017-09-27] MEDS: Heparin 5000 units/ml inj SUBQ SCH (09:00)
[2017-09-27] MEDS: OLANZapine 2.5mg tab ORAL SCH ×2 (09:00→18:00)
[2017-09-27] MEDS ORDERED: Docusate 100mg/10ml Liq GT SCH (09:00)
[2017-09-27] MEDS: Lisinopril 20mg tab ORAL SCH (09:00)
[2017-09-27] MEDS: Valproic Acid 250mg/5ml Liquid ORAL SCH (09:00)
[2017-09-27] MEDS: BusPIRone 5mg Tab ORAL SCH ×2 (09:00→18:00)
[2017-09-27] MEDS: D5 1/2NS 1,000 ML IV SCH (09:20)
--- NOTE | 2017-09-27 11:16 | Neurology Progress Note ---
Objective Physical Exam Last Vital Signs Date Time Temp Pulse Resp B/P (MAP) Pulse Ox O2 Delivery O2 Flow Rate FiO2 09/27/17 09:00 97.2 82 16 116/66 96 97.2 09/25/17 04:00 Room Air Laboratory Tests Test 09/26/17 17:20 Vancomycin Level Trough 6.3 ug/mL (5.0-12.0) Impression/Recommendations Problems: (1) Seizure disorder (2) Arterial ischemic stroke, MCA (middle cerebral artery), right, chronic (3) DM (diabetes mellitus) (4) HTN (hypertension) Status: unchanged Recommendations patient examined will dictate d/w staff nilson lin CT brain --patient lethargic JAIRO SALAS Sep 27, 2017 11:16
[2017-09-27 12:00] VITALS: BP 136/69
--- NOTE | 2017-09-27 12:18 | General Surgery Progress Note ---
General Surgery-Progress Note Subjective Symptoms: improved Additional Comments area of cellulitis much improved. Objective Last 24 Hour Vital Signs Date Time Temp Pulse Resp B/P (MAP) Pulse Ox O2 Delivery O2 Flow Rate FiO2 09/27/17 09:00 97.2 82 16 116/66 96 97.2 09/27/17 09:00 116/66 09/27/17 04:33 98.7 66 17 143/68 95 98.7 09/27/17 00:00 98.0 66 20 103/46 97 98.0 09/26/17 20:00 98.2 73 20 101/51 94 98.2 09/26/17 16:00 98.1 75 19 136/72 96 98.1 I&O Intake and Output 09/26/17 09/27/17 19:00 07:00 Intake Total 526.667 ml 730.000 ml Balance 526.667 ml 730.000 ml Intake Oral 360 ml 240 ml IV Total 166.667 ml 490.000 ml # Voids 3 3 # Bowel Movements 2 1 Wound: clean, intact Drains: none Cardiovascular: RSR Respiratory: clear Abdomen: soft, flat, non-tender, present bowel sounds Extremities: no edema, no tenderness, no cyanosis Laboratory Tests Test 09/26/17 17:20 Vancomycin Level Trough 6.3 ug/mL (5.0-12.0) Plan Problems: (1) Abscess Assessment & Plan: 66M right lateral superficial chest wall abscess. Afebrile , HD stable, leukocytosis resolved. On exam has moderate sized area of induration withOUT fluctuance. skin breakdown noted around apex. erythema, edema, warmth. no underlying abscess appreciated on exam. CT scan reviewed and moderate superficial (dermis/subcutaneous fat) area of cellulitis noted. no abscess or drainable fluid collection seen on CT. no extension to chest wall/ribs/lungs noted. cellulitis much improved since admission. -No acute surgical intervention necessary. area of cellulitis may form abscess later that may need drainage but currently no drainable fluid collection noted/ abscess noted. -keep skin clean and dry. dressing to protect skin from further breakdown. -Abx as per ID. input appreciated. -no abscess seems to be forming. can transition to oral antibiotics and discharge when ready. okay to go from surgical standpoint. can follow up as an outpatient. -thank you for this consultation. Dre Hope Sep 27, 2017 12:18
--- NOTE | 2017-09-27 14:49 | General Progress Note ---
Assessment/Plan Problem List: (1) Seizure ICD Codes: R56.9 - Unspecified convulsions SNOMED: 29339404 (2) Renal insufficiency ICD Codes: N28.9 - Disorder of kidney and ureter, unspecified SNOMED: 743276628, 509311308 (3) HTN (hypertension) ICD Codes: I10 - Hypertension SNOMED: 70919927 (4) DM (diabetes mellitus) ICD Codes: E11.9 - Diabetes mellitus SNOMED: 95076340 (5) COPD with acute exacerbation ICD Codes: J44.1 - Chronic obstructive pulmonary disease with (acute) exacerbation SNOMED: 403916642 (6) Episode of generalized weakness ICD Codes: R53.1 - Weakness SNOMED: 50007756 (7) Acute CVA (cerebrovascular accident) ICD Codes: I63.9 - Acute CVA (cerebrovascular accident) SNOMED: 149065609 (8) Abscess ICD Codes: L02.91 - Cutaneous abscess, unspecified SNOMED: 047530289 Status: unchanged Assessment/Plan ot pt diet wound care abx cbc bmp am dc if clear Subjective Constitutional: Reports: weakness Allergies: Coded Allergies: No Known Allergies (Unverified , 01/05/13) All Systems: reviewed and negative except above Subjective sleepy in bed refusing meds Objective Last 24 Hour Vital Signs Date Time Temp Pulse Resp B/P (MAP) Pulse Ox O2 Delivery O2 Flow Rate FiO2 09/27/17 12:00 97.3 74 18 136/69 95 97.3 09/27/17 09:00 97.2 82 16 116/66 96 97.2 09/27/17 09:00 116/66 09/27/17 04:33 98.7 66 17 143/68 95 98.7 09/27/17 00:00 98.0 66 20 103/46 97 98.0 09/26/17 20:00 98.2 73 20 101/51 94 98.2 09/26/17 16:00 98.1 75 19 136/72 96 98.1 Intake and Output 09/26/17 09/27/17 19:00 07:00 Intake Total 526.667 ml 730.000 ml Balance 526.667 ml 730.000 ml Intake Oral 360 ml 240 ml IV Total 166.667 ml 490.000 ml # Voids 3 3 # Bowel Movements 2 1 Laboratory Tests 09/26/17 17:20: Vancomycin Level Trough 6.3 Height (Feet): 5 Height (Inches): 4.00 Weight (Pounds): 139 General Appearance: lethargic EENT: normal ENT inspection Neck: normal alignment Cardiovascular: normal peripheral pulses, normal rate, regular rhythm Respiratory/Chest: chest wall non-tender, lungs clear, normal breath sounds Abdomen: normal bowel sounds, non tender, soft Extremities: normal inspection Edema: no edema noted Arm (L), no edema noted Arm (R), no edema noted Leg (L), no edema noted Leg (R), no edema noted Pedal (L), no edema noted Pedal (R), no edema noted Generalized Neurologic: motor weakness Skin: normal pigmentation, warm/dry FABIO GASTELUM Sep 27, 2017 14:49
--- NOTE | 2017-09-27 15:27 | Infectious Diseases Prog Note ---
Assessment/Plan Assessment/Plan ASSESSMENT: The patient is a 66-year-old male with: 1. Leukocytosis, resolved. 2. Right chest cellulitis, 2ry to MRSA- much improved today 09/27 -woudn cx MRSA (S vancomycin, bactrim, tetracycline) -CT chest: Partially visualized soft tissue swelling and skin thickening about the right lateral mid/lower back as detailed above. Correlate with physical exam assess for cellulitis. Evaluation is limited without contrast and the presence of a rim-enhancing fluid collection/abscess cannot be well established. Consider focused ultrasound evaluation to assess for fluid component. Opacities in the left lower lobe may related to atelectasis, scarring , infection or inflammation. Please note that evaluation of the lungs is limited due to significant respiratory motion. -Bcx NTD -. CVA. - Seizure disorder. -. History of dysphagia in the past. -. Hyperlipidemia. -. Hypertension. -. BPH. -. Diabetes. -. Schizophrenia. -. Depression/anxiety. PLAN: 1. Switch IV vancomycin #11/20 to PO Bactrim DS 1 tab bid for MRSA cellulitis 2. Monitor CBC. 3. Monitor BMP. 4. Monitor cultures (blood, wound). 5. Monitor CBC. 6. Monitor BMP. 7. Monitor chest x-ray. Thank you, Dr. Nura Carter, for allowing me to participate in the care of the patient. Discussed with RN Subjective Allergies: Coded Allergies: No Known Allergies (Unverified , 01/05/13) Subjective afebrile no leukocytosis Bcx NTD wound cx gerw MRSA Objective Vital Signs Last 24 Hour Vital Signs Date Time Temp Pulse Resp B/P (MAP) Pulse Ox O2 Delivery O2 Flow Rate FiO2 09/27/17 12:00 97.3 74 18 136/69 95 97.3 09/27/17 09:00 97.2 82 16 116/66 96 97.2 09/27/17 09:00 116/66 09/27/17 04:33 98.7 66 17 143/68 95 98.7 09/27/17 00:00 98.0 66 20 103/46 97 98.0 09/26/17 20:00 98.2 73 20 101/51 94 98.2 09/26/17 16:00 98.1 75 19 136/72 96 98.1 Height (Feet): 5 Height (Inches): 4.00 Weight (Pounds): 139 Objective HEENT: No pale conjunctivae. No icterus. NECK: No lymphadenopathy. CHEST: Clear. The patient has right posterior lower chest area of erythema, induration, TTP and purulent discharge- much improved ABDOMEN: Soft. EXTREMITIES: No cyanosis. NEUROLOGIC: Awake. Laboratory Tests Test 09/26/17 17:20 Vancomycin Level Trough 6.3 ug/mL (5.0-12.0) Current Medications Medications (Trade) Dose Ordered Sig/Kun Route PRN Reason Start Time Stop Time Status Last Admin Dose Admin Acetaminophen (Tylenol) 650 mg Q4H PRN ORAL Fever/Headache/Mild Pain 09/23/17 21:15 10/23/17 21:14 Bisacodyl (Dulcolax) 10 mg DAILYPRN PRN RECTAL Constipation 09/23/17 21:15 10/23/17 21:14 Buspirone HCl (Buspar) 5 mg BID ORAL 09/23/17 21:15 10/23/17 21:14 09/26/17 17:12 Dextrose (Dextrose 50%) STAT PRN IV Hypoglycemia 09/23/17 21:15 10/23/17 21:14 Dextrose/Sodium Chloride 1,000 ml @ 60 mls/hr [id number] IV 09/23/17 22:00 10/23/17 21:59 09/26/17 02:29 Docusate Sodium (Colace) 100 mg DAILY GT 09/27/17 09:00 10/27/17 08:59 Finasteride (Proscar) 5 mg DAILY ORAL 09/24/17 09:00 10/24/17 08:59 09/24/17 09:05 Haloperidol Decanoate (Haldol) 50 mg [id number] IM 09/26/17 13:00 10/26/17 12:59 09/26/17 13:55 Heparin Sodium (Porcine) (Heparin 5000 units/ml) 5,000 units EVERY 12 HOURS SUBQ 09/24/17 09:00 10/24/17 08:59 09/26/17 20:45 Insulin Aspart (NovoLOG) BEFORE MEALS AND HS SUBQ 09/24/17 06:30 10/24/17 06:29 09/27/17 11:54 Levetiracetam 100 ml @ 400 mls/hr Q12HR ONCE IVPB 09/27/17 21:00 09/27/17 21:14 Lisinopril (Prinivil) 20 mg DAILY ORAL 09/24/17 09:00 10/24/17 08:59 Magnesium Hydroxide (Mom) 30 ml DAILYPRN PRN ORAL Constipation 09/23/17 21:15 10/23/17 21:14 Olanzapine (ZyPREXA) 2.5 mg BID ORAL 09/24/17 09:00 10/24/17 08:59 09/26/17 17:12 Valproate Sodium 250 mg/Dextrose 57.5 ml @ 60 mls/hr Q12H IVPB 09/27/17 20:00 10/27/17 19:59 Vancomycin HCl (Vanco rx to dose) 1 ea DAILY PRN MISC Per rx protocol 09/23/17 20:45 10/23/17 20:44 Vancomycin/Sodium Chloride 250 ml @ 166.667 mls/hr Q12HR@0200,1400 IVPB 09/27/17 02:00 10/02/17 01:59 09/27/17 14:07 Shell Niño M.D. Sep 27, 2017 15:27
[2017-09-27] MEDS ORDERED: BACTRIM DS TAB1 EAC1 ORAL ×2 (15:47→15:49)
[2017-09-27] MEDS ORDERED: HEPARIN SO5000 UNIT2 SUBQ (15:55)
[2017-09-27] MEDS ORDERED: NOVOLOG100 UNIT/4 SQ (15:57)
[2017-09-27] MEDS ORDERED: NOVOLOG100 UNITS1 (15:58)
[2017-09-27 16:00] VITALS: BP 124/74
--- NOTE | 2017-09-27 16:16 | Diagnostic Imaging Report ---
Indications: Altered mental status Technique: Spiral acquisitions obtained through the brain. Angled axial and coronal 5 x 5 mm slices were reconstructed. Total dose length product 1376.09 mGycm. CTDI vol(s) 70.38 mGy. Dose reduction achieved using automated exposure control Comparison: 04/11/2017 Findings: Again demonstrated is a large area of encephalomalacia in the posterior left temporal and parietal lobes. Some dystrophic calcifications are seen at the posterior aspect of this There is resultant ex vacuo dilatation of the posterior body, atrium, and temporal horn of the right lateral ventricle. There is generalized age-related enlargement of the ventricles and extra-axial CSF spaces. Multiple old lacunar infarcts are seen in the left cerebellar hemisphere in the bilateral basal ganglia and left periventricular deep white matter. No acute intracranial hemorrhage or edema. No mass effect nor midline shift. The calvarium is intact. Sinuses are clear. Impression: Chronic and age-related changes, as described Large right convexity infarct, probably in the middle cerebral artery distribution, unchanged from 04/11/2017 Other old infarcts as described Negative for acute intracranial bleed or mass effect The CT scanner at [facility] is accredited by the [employer] and the scans are performed using protocols designed to limit radiation exposure to as low as reasonably achievable to attain images of sufficient resolution adequate for diagnostic evaluation.
[2017-09-27 16:18] VITALS: BP 124/74
--- NOTE | 2017-09-27 16:39 | Neurology Progress Note ---
Objective Physical Exam Last Vital Signs Date Time Temp Pulse Resp B/P (MAP) Pulse Ox O2 Delivery O2 Flow Rate FiO2 09/27/17 16:18 97.8 64 19 124/74 96 Room Air 97.8 Laboratory Tests Test 09/26/17 17:20 Vancomycin Level Trough 6.3 ug/mL (5.0-12.0) Impression/Recommendations Problems: (1) Seizure disorder (2) Arterial ischemic stroke, MCA (middle cerebral artery), right, chronic (3) DM (diabetes mellitus) (4) HTN (hypertension) Status: unchanged Recommendations patient examined will dictate d/w staff nilson judd and [place] CT brain --patient lethargic #[id number] JAIRO SALAS Sep 27, 2017 16:39
--- NOTE | 2017-09-27 19:01 | Progress Note ---
SUBJECTIVE: The patient is a 66-year-old male patient. He is confused and disorganized. He has got mood lability. He also has some agitation and irritability. Cognition has declined below baseline. That is why, his attending physician has requested daily psychiatric consultation to prevent any further decline in his cognition. He is confused and disorganized. He is still very mood labile. MENTAL STATUS EXAMINATION: This is a 66-year-old male with psychomotor agitation. Mood is irritable and agitated. Affect guarded and restricted. Thought process, disorganized and illogical. Denies any current suicidal or homicidal thoughts. Insight and judgment is poor. DIAGNOSIS: Schizoaffective, bipolar type. PLAN: Treat him with Zyprexa 2.5 mg twice a day, Depakote 250 mg twice a day, and BuSpar 5 mg twice a day. Provide 18-20 minutes of supportive therapy and encourage him to interact appropriately with staff. Also transfer to Psych when medically cleared and also Haldol decanoate 50 mg IM every two weeks for long-acting antipsychotic mood stabilization. Chart reviewed. Discussed with staff. Seen and assessed at bedside. Berto Umana M.D. DR: HARPER JOB#: [id number] CC:
[2017-09-27] MEDS ORDERED: Valproate Sodium INJ 250 MG in D5W 55 ML IVPB SCH (20:00)
[2017-09-27] MEDS ORDERED: levETIRAcetam 500mg/NS100ml 100 ML IVPB ONE (21:00)
[2017-09-27] MEDS ORDERED: D5 1/2NS 1000ml IV ONE (22:51)
[2017-09-27] MEDS ORDERED: Tubing IV Secondary IV ONE (22:51)
--- NOTE | 2017-09-28 00:31 | Consultation ---
DATE OF CONSULTATION: 09/27/2017 G NEUROLOGICAL CONSULTATION CONSULTING PHYSICIAN: Brandon Bui M.D. REQUESTING PHYSICIAN: Nura Carter D.O. HISTORY OF PRESENT ILLNESS: This is a 66-year-old man with multiple medical issues including chronic seizure disorder, now seen in neurological consultation to adjust treatment. The patient who is maintained on Keppra for his underlying seizure activities stopped using p.o. medications. Possible exacerbation of seizures was expected and Neurology consult was requested. The patient was admitted from nursing facility as he developed left flank abscess. The patient was started on IV fluids and antibiotics displaying some improvement, but continued to have behavioral abnormalities, refusal to eat, and refusal to take medications. He is being seen by Psychiatry addressing issue of underlying dementia. He is now being treated with Zyprexa. He is on Depakote 250 b.i.d. and BuSpar 5 mg. Current laboratory work with hemoglobin 10.5 and hematocrit 31.3. Chemistry panel with blood sugar 237 and calcium 8.4. Stat CT of the brain was just obtained. This revealed a large right convexity infart in right MCA distribution unchanged from previous study in May 2017, multiple other small infarcts, old were noted. Right chest cellulitis secondary to MRSA now improved. PAST MEDICAL HISTORY: The patient has a history of hyperlipidemia, hypertension, benign prostatic hypertrophy, diabetes type 2, chronic schizophrenia, and multiple strokes with vascular dementia. FAMILY HISTORY: Noncontributory. SOCIAL HISTORY: No evidence of alcohol or drug abuse. Now, a resident of nursing facility. REVIEW OF SYMPTOMS: Unable to obtain due to the patient's status. PHYSICAL EXAMINATION: GENERAL: A well-developed, somewhat cachectic, ill-appearing man, not in acute distress, lying comfortably in bed. Appears asleep. VITAL SIGNS: Now stable. Afebrile. Blood pressure 124/74. HEENT: Head, normocephalic. There is no evidence of injuries. Eyes, ears, and throat are clear. NECK: Supple. No meningeal signs. MUSCULOSKELETAL EXAMINATION: No deformities. Peripheral pulses 1+ and symmetric. MENTAL STATUS: The patient is arousable. He has a brief eye contact. He does not follow commands. Not cooperative. Nonverbal. CRANIAL NERVE II: Pupils both responding to light and accommodation. Extraocular movements normal. CRANIAL NERVE V: Normal corneal responses. CRANIAL NERVE VII: Drooped left nasolabial fold. CRANIAL NERVE VIII: Probably decreased hearing. CRANIAL NERVES IX THROUGH XII: Reduced gag response. MOTOR EXAMINATION: Revealed spasticity with weakness 3/5 in the left upper and left lower extremity. Deep tendon reflexes 2+ on the left and 1+ on the right. Positive Babinski on the left. SENSORY EXAMINATION: Inconsistent response to pin stimulation. IMPRESSION: 1. Vascular dementia with behavioral abnormalities. 2. Chronic psychiatric disorder exacerbation. 3. Chronic seizure disorder, fair control. 4. Extensive ischemic cerebrovascular disease, multiple ischemic strokes, with the large right middle cerebral artery distribution stroke in the past. 5. Hypertension. 6. Diabetes type 2. RECOMMENDATIONS: Start IV injection of Keppra 500 mg b.i.d. Continue with Depakote 250 b.i.d. Behavioral abnormalities to be deferred to Psychiatry. Neurologically, the patient is now stable. Thank you for allowing me to see this interesting patient in neurological consultation. Brandon Bui M.D. DR: YADY JOB#: [id number] CC:
--- NOTE | 2017-09-28 00:46 | Progress Note ---
PSYCHOTHERAPY CONSULTATION PROGRESS NOTE TREATING ATTENDING PHYSICIAN: Nura Carter D.O. SUBJECTIVE: The patient is a 66-year-old male patient. The patient has been confused and disorganized. He has feelings of helpless because his family wants to be able to the patient's coping skills . Encouraging the patient to participate in treatment milieu. Providing him with reality orientation the patient has. The clinician has reviewed the patient's chart and discussed the treatment with the treatment team. Beulah Villavicencio PsyD. DR: ASHANTI JOB#: [id number] CC:
--- NOTE | 2017-09-28 14:15 | Discharge Summary ---
Discharge Summary Hospital Course Date of Admission Sep 23, 2017 at 17:24 Date of Discharge Sep 27, 2017 at 19:10 Admitting Diagnosis FLANK ABCESS HPI Pj Moon is a 66 year old male who was admitted on Sep 23, 2017 at 17:24 for Flank Abcess Hospital Course [id number] Discharge Discharge Disposition Patient was discharged to SNF/Subacute Facility(03) Ny Diez NP Sep 28, 2017 14:15
--- NOTE | 2017-09-29 03:16 | Discharge Summary 2 SIG ---
DATE OF ADMISSION: 09/23/2017 DATE OF DISCHARGE: 09/27/2017 CONSULTANTS: 1. Shell Niño M.D. 2. Dre Hope M.D. 3. Berto Umana M.D. 4. Beulah Villavicencio PSYD. 5. Brandon Bui M.D. BRIEF HOSPITAL COURSE: The patient is a 66-year-old male from [facility], who presented with left flank pain. It has been ongoing for a couple of days and has gotten worse. He has history significant for COPD, diabetes, hypertension, CVA, seizure, dysphagia with PEG tube. On evaluation at ED, blood work showed leukocytosis. WBC was 16. There was a large area of erythema with associated fluctuance on the area of the right flank. There was central opening and some discharge coming out. CT of the chest showed left lower lung linear and slightly nodular opacity, there was a right [id number] lateral back area of subcutaneous soft tissue swelling and presence of peripheral-enhancing fluid collection. He had a chest x-ray done that showed no consolidation or effusion and no pneumothorax. EKG was in normal sinus rhythm. He was admitted for evaluation of right-sided chest abscess. He was followed by Infectious Disease specialist and was started on IV vancomycin. Surgical evaluation was done. There was no underlying abscess appreciated on exam. No extension to chest wall and lungs noted. No acute surgical intervention necessary. He was given wound care. He underwent neurologic evaluation. The patient has seizure disorder and has been maintained on Keppra however stopped using his medications. Stat CT of the brain was obtained and revealed a large right convexity infarct in right MCA distribution, unchanged from previous study in 05/29/2017. He was given IV Keppra 500 mg b.i.d. and Depakote 250 mg b.i.d. Psychiatric evaluation was done. He was diagnosed with schizoaffective bipolar-type and was given Zyprexa and BuSpar. Wound culture with growth of MRSA. Blood culture did not isolate any growth. IV vancomycin was transitioned to p.o. Bactrim DS and the patient was eventually discharged back to senior care. FINAL DIAGNOSES: 1. Right chest cellulitis secondary to MRSA. 2. CVA. 3. History of dysphagia in the past. 4. Hyperlipidemia. 5. BPH. 6. Depression/anxiety. 7. Vascular dementia with behavioral abnormalities. 8. Chronic psychiatric disorder with exacerbation. 9. Chronic seizure disorder. 10. Extensive ischemic cerebrovascular disease with multiple ischemic strokes and a large right middle cerebral artery distribution stroke in the past. 11. Type 2 diabetes. 12. Hypertension. 13. Schizoaffective, bipolar type. DISPOSITION: The patient was discharged to custodial facility. DISCHARGE MEDICATIONS: Refer to medication list. Nura Carter D.O. I have been assigned to dictate discharge summary on this account and I was not involved in the patient's management. Ny Diez N.P. DR: Anamaria JOB#: [id number] CC: MASON
== END 2017-09-27 19:10 | DRG 602 ==
LOC: EDBD 16:35 → EMR 17:18 → 4E 17:24 → EDBEDREQ 17:51 → 4E 09-25 15:00
DX: L02.213 Cutaneous abscess of chest wall (principal); G93.40 Encephalopathy, unspecified; F01.51 Vascular dementia, unspecified severity, with behavioral disturbance; I67.82 Cerebral ischemia; B95.62 Methicillin resistant Staphylococcus aureus infection as the cause of diseases classified elsewhere; I10 Essential (primary) hypertension; E11.9 Type 2 diabetes mellitus without complications; J44.9 Chronic obstructive pulmonary disease, unspecified; F25.0 Schizoaffective disorder, bipolar type; L03.313 Cellulitis of chest wall; D64.9 Anemia, unspecified; N28.9 Disorder of kidney and ureter, unspecified; Z86.73 Personal history of transient ischemic attack (TIA), and cerebral infarction without residual deficits; N40.0 Benign prostatic hyperplasia without lower urinary tract symptoms; E78.5 Hyperlipidemia, unspecified; G40.909 Epilepsy, unspecified, not intractable, without status epilepticus; F41.8 Other specified anxiety disorders; Z79.4 Long term (current) use of insulin
CPT/HCPCS: 36415; 70450; 71045; 71250; 80048; 80053; 80202; 80299; 82550; 82553; 82962; 83605; 85025; 87040; 87070; 87081; 87181; 87205; 93005; 99285; J1815

== ENCOUNTER 2018-06-07 16:02 | Inpatient (IN) | payer MEDICARE, MEDICAID ==
[~2018-06-07] VITALS: Ht 170.2 cm; Wt 56.4 kg
[~2018-06-07 16:02] MED LIST changes: +BACTRIM DS TAB1 EAC1 ORAL; +BISACODYL10 M1 RC; +MILK OF MA400 MG/51 ORAL; +MULTIVITAMINS1 EAC8 ORAL; +NOVOLIN N100 UNIT/1 SUBQ; +NOVOLOG100 UNIT/4 SQ; +NOVOLOG100 UNITS1; +VALPROIC A250 MG/5 M PO
[2018-06-07 17:13] VITALS: BP 125/76
--- NOTE | 2018-06-07 17:16 | Emergency Room Report ---
History of Present Illness General Chief Complaint: General Complaint Source: Patient, Medical Record Present Illness HPI 67-year-old male sent from long term for change in mental status, thought to be likely hepatic encephalopathy. Patient has a history of a stroke and residual left hemiparesis, Hebrew-speaking, and is currently having no complaints but is only alert oriented to person. Allergies: Coded Allergies: No Known Allergies (Unverified , 01/05/13) Patient History Limited by: medical condition Past Medical History: see triage record Reviewed Nursing Documentation: PMH: Agreed; PSxH: Agreed Nursing Documentation-PMH Past Medical History: No History, Except For Hx Hypertension: Yes Hx COPD: Yes Hx Diabetes: Yes Hx Cancer: No Hx Gastrointestinal Problems: Yes Hx Neurological Problems: Yes Hx Cerebrovascular Accident: Yes Hx Seizures: Yes Hx Epilepsy: Yes Hx Dysphasia: Yes Review of Systems All Other Systems: negative except mentioned in HPI Physical Exam Vital Signs Date Time Temp Pulse Resp B/P (MAP) Pulse Ox O2 Delivery O2 Flow Rate FiO2 06/07/18 15:53 98.2 94 21 115/70 91 Room Air Sp02 EP Interpretation: reviewed, normal General Appearance: no apparent distress, alert, non-toxic Head: normocephalic Eyes: bilateral eye normal inspection, bilateral eye EOMI ENT: normal ENT inspection, hearing grossly normal, normal pharynx, no angioedema, normal voice, moist mucus membranes Neck: normal inspection, full range of motion, supple, supple/symm/no masses Respiratory: chest non-tender, lungs clear, normal breath sounds, chest symmetrical, palpation of chest normal Cardiovascular #1: normal peripheral pulses, regular rate, rhythm Cardiovascular #2: 2+ radial (R), 2+ radial (L) Gastrointestinal: normal inspection, non tender, soft, no mass, no guarding, no rebound Rectal: deferred Genitourinary: normal inspection, no CVA tenderness Musculoskeletal: back normal, gait/station normal, normal range of motion, non- tender, no calf tenderness Neurologic: alert, responsive, maintenance coordinator III-XII nml as tested - L facial droop, motor strength/tone normal - L sided weakness, sensory intact, speech normal - dysarthric Psychiatric: mood/affect normal Skin: normal color, no rash, warm/dry, normal turgor Lymphatic: no adenopathy Medical Decision Making Diagnostic Impression: Primary Impression: Encephalopathy ER Course Patient with normal eval today, sent for possible hepatic encephalopathy but normal exam other than L sided deficits, workup normal. Recent labs showed elevated ammonia per Dr. Carter, d/w him, he'd like to admit to repeat eval in AM. EKG Diagnostic Results EKG Time: 17:06 EP Interpretation: no st-t changes, no twi's Rate: normal Rhythm: NSR ST Segments: no acute changes ASA given to the pt in ED: No Rhythm Strip Diag. Results Rhythm Strip Time: 17:15 EP Interpretation: yes Rate: 78 Rhythm: NSR, no PVC's, no ectopy Last Vital Signs Date Time Temp Pulse Resp B/P (MAP) Pulse Ox O2 Delivery O2 Flow Rate FiO2 06/07/18 15:53 98.2 94 21 115/70 91 Room Air Disposition: ADMITTED INPATIENT Condition: Stable Referrals: Nura Carter DO (PCP) AMY PHELPS M.D Jun 07, 2018 17:15
[2018-06-07 17:51] LABS: EOSINOPHILS % (AUTO) 0.5 % (0.0-3.0); HEMATOCRIT 34.6 % (42.0-52.0); HEMOGLOBIN 11.7 G/DL (14.2-18.0); MEAN CORPUSCULAR VOLUME 88 FL (80-99); NEUTROPHILS % (AUTO) 55.6 % (45.0-75.0); PLATELET COUNT 316 K/UL (150-450); RED BLOOD COUNT 3.92 M/UL (4.70-6.10); RED CELL DISTRIBUTION WIDTH 11.4 % (11.6-14.8)
[2018-06-07 17:57] LABS: CHLORIDE 103 MMOL/L (98-107); CREATININE 0.9 MG/DL (0.55-1.30); SODIUM 139 MMOL/L (136-145)
[2018-06-07 18:02] LABS: AMMONIA < 10 umol/L (11-32)
[2018-06-07 18:05] LABS: ALANINE AMINOTRANSFERASE 8 U/L (12-78); ALBUMIN 3.5 G/DL (3.4-5.0); ALBUMIN/GLOBULIN RATIO 0.8 (1.0-2.7); ALKALINE PHOSPHATASE 51 U/L (46-116); ANION GAP 8 mmol/L (5-15); ASPARTATE AMINO TRANSFERASE 10 U/L (15-37); BILIRUBIN,TOTAL 0.3 MG/DL (0.2-1.0); BLOOD UREA NITROGEN 28 mg/dL (7-18); CALCIUM 8.9 MG/DL (8.5-10.1); CARBON DIOXIDE 28 MMOL/L (21-32); POTASSIUM 4.3 MMOL/L (3.5-5.1)
[2018-06-07 19:01] VITALS: BP 162/82
[2018-06-07 19:17] LABS: APPEARANCE,URINE CLEAR; BILIRUBIN, URINE NEGATIVE (NEGATIVE); GLUCOSE, URINE (UA) NEGATIVE (NEGATIVE); KETONES,URINE 1+ (NEGATIVE); LEUKOCYTE ESTERASE ,URINE NEGATIVE (NEGATIVE); NITRITE,URINE NEGATIVE (NEGATIVE); PH,URINE 6 (4.5-8.0); PROTEIN,URINE NEGATIVE (NEGATIVE); UROBILINOGEN,URINE 1 MG/DL (0.0-1.0)
[2018-06-07 19:20] LABS: COLOR,URINE YELLOW
[2018-06-07] MEDS ORDERED: Mylanta II UD 30ml ORAL PRN (21:45)
[2018-06-07] MEDS ORDERED: Morphine Sulfate 2mg/ml Inj IVP PRN (21:45)
[2018-06-07] MEDS ORDERED: Miralax 17gm pkt ORAL PRN (21:45)
[2018-06-07 23:30] VITALS: BP 158/79
[2018-06-08 00:32] VITALS: BP 151/81
[2018-06-08] MEDS ORDERED: FLEET ENEMA133 ML RECTAL (02:16)
[2018-06-08] MEDS ORDERED: TYLENOL325 M1 PO (02:33)
[2018-06-08] MEDS ORDERED: TYLENOL EXTRA500 MG ORAL (02:35)
[2018-06-08] MEDS ORDERED: METFORMIN HCL1000 M1 ORAL (02:38)
[2018-06-08] MEDS: Zolpidem 5mg tab ORAL PRN (02:40)
[2018-06-08 04:00] VITALS: BP 144/75
[2018-06-08] MEDS: NovoLOG Insulin Flexpen SUBQ SCH ×4 (07:03→21:05)
[2018-06-08 08:00] VITALS: BP 100/67
[2018-06-08] MEDS: OLANZapine 2.5mg tab ORAL SCH ×4 (08:13→17:49)
[2018-06-08] MEDS: BusPIRone 10mg Tab ORAL SCH ×4 (08:13→17:49)
[2018-06-08] MEDS: Heparin 5000 units/ml inj SUBQ SCH ×2 (08:14→21:05)
--- NOTE | 2018-06-08 09:31 | Diagnostic Imaging Report ---
Indications: Altered mental status Technique: Spiral acquisitions obtained through the brain. Angled axial and coronal 5 x 5 mm slices were reconstructed. Total dose length product 1404.24 mGycm. CTDI vol(s) 70.38 mGy. Dose reduction achieved using automated exposure control Comparison: 09/27/2017 Findings: Large area of encephalomalacia involving the right temporal and parietal lobes again demonstrated, unchanged. Extensive periventricular deep white matter low-attenuation is unchanged. Ventriculomegaly and generalized enlargement of the cortical sulci is again demonstrated. Multiple old bilateral basal ganglia lacunar infarcts and left fonseca radiata lacunar infarcts again demonstrated. There is an old infarct in the left cerebellar hemisphere again noted. No acute intracranial hemorrhage nor edema. No mass effect nor midline shift. Visualized orbits and sinuses are unremarkable. There is evidence of minimal mastoid opacification on the right. Impression: Multiple old infarcts, as described, also demonstrated on prior 09/27/2017 exam Other chronic and age-related changes, as described Negative for acute intracranial bleed or mass effect This agrees with the preliminary interpretation provided overnight by [facility] teleradiology service. The CT scanner at [facility] is accredited by the [employer] and the scans are performed using protocols designed to limit radiation exposure to as low as reasonably achievable to attain images of sufficient resolution adequate for diagnostic evaluation.
--- NOTE | 2018-06-08 09:36 | Diagnostic Imaging Report ---
Indication: Shortness of breath Technique: One view of the chest Comparison: 09/23/2017 Findings: Lungs and pleural spaces are clear. Heart size is normal. No significant interim change Impression: No acute process
[2018-06-08 10:36] LABS: BASOPHILS % (AUTO) 1.2 % (0.0-2.0); HEMATOCRIT 35.5 % (42.0-52.0); HEMOGLOBIN 11.8 G/DL (14.2-18.0); LYMPHOCYTES % (AUTO) 30.4 % (20.0-45.0); MEAN CORPUSCULAR VOLUME 88 FL (80-99); MONOCYTES % (AUTO) 8.9 % (1.0-10.0); NEUTROPHILS % (AUTO) 57.5 % (45.0-75.0); PLATELET COUNT 290 K/UL (150-450); RED BLOOD COUNT 4.01 M/UL (4.70-6.10); RED CELL DISTRIBUTION WIDTH 11.7 % (11.6-14.8); WHITE BLOOD COUNT 4.7 K/UL (4.8-10.8)
[2018-06-08 10:50] LABS: ALANINE AMINOTRANSFERASE 9 U/L (12-78); ALBUMIN 3.4 G/DL (3.4-5.0); ALBUMIN/GLOBULIN RATIO 0.8 (1.0-2.7); ALKALINE PHOSPHATASE 52 U/L (46-116); ANION GAP 7 mmol/L (5-15); ASPARTATE AMINO TRANSFERASE 11 U/L (15-37); BILIRUBIN,TOTAL 0.3 MG/DL (0.2-1.0); BLOOD UREA NITROGEN 22 mg/dL (7-18); CALCIUM 8.7 MG/DL (8.5-10.1); CARBON DIOXIDE 29 MMOL/L (21-32); CHLORIDE 104 MMOL/L (98-107); CHOLESTEROL 205 MG/DL (< 200); CREATININE 0.9 MG/DL (0.55-1.30); HDL CHOLESTEROL 53 MG/DL (40-60); POTASSIUM 4.1 MMOL/L (3.5-5.1); SODIUM 140 MMOL/L (136-145); TRIGLYCERIDES 83 MG/DL (30-150)
[2018-06-08 12:00] VITALS: BP 123/73
--- NOTE | 2018-06-08 12:48 | Consultation ---
History of Present Illness General Date patient seen: Jun 08, 2018 Chief Complaint: General Complaint Present Illness HPI 67-year-old male with hx of COPD, seizures, HTN, CVA with residual left hemiparesis,bed bound, half-way resident sent in from half-way for change in mental status. Pt is awake, but doesn't seem to understand or follow any commands. Allergies: Coded Allergies: No Known Allergies (Unverified , 01/05/13) Medication History Scheduled Buspirone Hcl* (Buspar*), 5 MG ORAL BID, (Reported) Docusate Sodium* (Docusate Sodium*), 100 MG ORAL DAILY, (Reported) Finasteride* (Proscar*), 5 MG ORAL DAILY, (Reported) Heparin Sod (Porcine) (Heparin Sodium*), 5,000 UNITS SUBQ EVERY 12 HOURS, ( Reported) Levetiracetam* (Levetiracetam*), 500 MG ORAL Q12HR, (Reported) Lisinopril (Lisinopril*), 20 MG ORAL DAILY Metformin Hcl* (Metformin Hcl*), 1,000 MG ORAL BID, (Reported) Multivitamin With Minerals (Multivitamins With Minerals*), 1 TAB ORAL DAILY, ( Reported) Nph, Human Insulin Isophane* (Novolin N*), 12 UNITS SUBQ BEFORE BREAKFAST, ( Reported) Nph, Human Insulin Isophane* (Novolin N*), 6 UNITS SUBQ QPM, (Reported) Olanzapine* (Zyprexa*), 2.5 MG ORAL BID, (Reported) Trimethoprim/Sulfamethoxazole 160/800* (Bactrim Ds Tablet*), 1 TAB ORAL BID, ( Reported) Trimethoprim/Sulfamethoxazole 160/800* (Bactrim Ds Tablet*), 1 TAB ORAL BID, ( Reported) Valproate Sodium (Valproic Acid), 10 ML PO BID, (Reported) Scheduled PRN Acetaminophen (Tylenol), 325 MG PO Q4HR PRN for Mild Pain (Pain Scale 1-3), ( Reported) Acetaminophen* (Acetaminophen 325MG Tablet*), 650 MG ORAL Q4H PRN for Fever/ Headache/Mild Pain, (Reported) Acetaminophen* (Tylenol Extra Strength*), 500 MG ORAL Q4HR PRN for Moderate Breakthru Pain (5-7), (Reported) Bisacodyl (Bisacodyl), 10 MG RC for Constipation, (Reported) Magnesium Hydroxide* (Milk Of Magnesia*), 30 ML ORAL HS PRN for Constipation, ( Reported) Na Phos,M-B/Na Phos,Di-Ba* (Fleet Enema*), 133 ML RECTAL for Constipation, ( Reported) Na Phos,M-B/Na Phos,Di-Ba* (Fleet Enema*), 133 ML RECTAL DAILY PRN for Constipation, (Reported) Miscellaneous Medications Insulin Aspart (Novolog), 100 UNIT SQ, (Reported) Insulin Aspart (Novolog Flexpen), (Reported) Patient History Healthcare decision maker N/A Resuscitation status Full Code Advanced Directive on File No Past Medical/Surgical History Past Medical/Surgical History: (1) COPD (chronic obstructive pulmonary disease) (2) Anemia (3) Seizure disorder (4) HTN (hypertension) (5) DM (diabetes mellitus) Review of Systems All Other Systems: negative except mentioned in HPI Physical Exam General Appearance: cachetic Lines, tubes and drains: peripheral HEENT: normocephalic, atraumatic Neck: non-tender, normal alignment Respiratory/Chest: chest wall non-tender, lungs clear Breasts: no masses Cardiovascular/Chest: normal peripheral pulses Abdomen: hyperactive bowel sounds Extremities: normal range of motion Last 24 Hour Vital Signs Date Time Temp Pulse Resp B/P (MAP) Pulse Ox O2 Delivery O2 Flow Rate FiO2 06/08/18 12:00 99.5 66 18 123/73 (90) 97 06/08/18 09:00 Room Air 06/08/18 08:00 97.0 79 18 100/67 (78) 97 06/08/18 04:00 97.7 66 20 144/75 (98) 97 06/08/18 01:00 Room Air 06/08/18 00:32 97.5 61 18 151/81 (104) 96 06/07/18 23:50 97.4 72 20 158/79 100 Room Air 06/07/18 23:30 97.4 72 20 158/79 100 Room Air 06/07/18 19:01 98.2 80 22 162/82 98 Room Air 06/07/18 17:13 98.2 76 21 125/76 96 Room Air 06/07/18 16:54 94 21 Room Air 06/07/18 15:53 98.2 94 21 115/70 91 Room Air Intake and Output 06/07/18 06/08/18 18:59 06:59 Intake Total 420 ml Balance 420 ml Intake Oral 420 ml # Voids 3 # Bowel Movements 3 Laboratory Tests Test 06/07/18 17:10 06/07/18 19:00 06/07/18 21:32 06/08/18 10:05 White Blood Count 6.0 K/UL (4.8-10.8) 4.7 K/UL (4.8-10.8) L Red Blood Count 3.92 M/UL (4.70-6.10) L 4.01 M/UL (4.70-6.10) L Hemoglobin 11.7 G/DL (14.2-18.0) L 11.8 G/DL (14.2-18.0) L Hematocrit 34.6 % (42.0-52.0) L 35.5 % (42.0-52.0) L Mean Corpuscular Volume 88 FL (80-99) 88 FL (80-99) Mean Corpuscular Hemoglobin 29.8 PG (27.0-31.0) 29.5 PG (27.0-31.0) Mean Corpuscular Hemoglobin Concent 33.8 G/DL (32.0-36.0) 33.3 G/DL (32.0-36.0) Red Cell Distribution Width 11.4 % (11.6-14.8) L 11.7 % (11.6-14.8) Platelet Count 316 K/UL (150-450) 290 K/UL (150-450) Mean Platelet Volume 6.3 FL (6.5-10.1) L 6.5 FL (6.5-10.1) Neutrophils (%) (Auto) 55.6 % (45.0-75.0) 57.5 % (45.0-75.0) Lymphocytes (%) (Auto) 35.0 % (20.0-45.0) 30.4 % (20.0-45.0) Monocytes (%) (Auto) 8.0 % (1.0-10.0) 8.9 % (1.0-10.0) Eosinophils (%) (Auto) 0.5 % (0.0-3.0) 2.0 % (0.0-3.0) Basophils (%) (Auto) 1.0 % (0.0-2.0) 1.2 % (0.0-2.0) Prothrombin Time 10.7 SEC (9.30-11.50) Prothromb Time International Ratio 1.0 (0.9-1.1) Activated Partial Thromboplast Time 27 SEC (23-33) Sodium Level 139 MMOL/L (136-145) 140 MMOL/L (136-145) Potassium Level 4.3 MMOL/L (3.5-5.1) 4.1 MMOL/L (3.5-5.1) Chloride Level 103 MMOL/L (98-107) 104 MMOL/L (98-107) Carbon Dioxide Level 28 MMOL/L (21-32) 29 MMOL/L (21-32) Anion Gap 8 mmol/L (5-15) 7 mmol/L (5-15) Blood Urea Nitrogen 28 mg/dL (7-18) H 22 mg/dL (7-18) H Creatinine 0.9 MG/DL (0.55-1.30) 0.9 MG/DL (0.55-1.30) Estimat Glomerular Filtration Rate > 60 mL/min (>60) > 60 mL/min (>60) Glucose Level 177 MG/DL (74-106) H 168 MG/DL (74-106) H Calcium Level 8.9 MG/DL (8.5-10.1) 8.7 MG/DL (8.5-10.1) Total Bilirubin 0.3 MG/DL (0.2-1.0) 0.3 MG/DL (0.2-1.0) Aspartate Amino Transf (AST/SGOT) 10 U/L (15-37) L 11 U/L (15-37) L Alanine Aminotransferase (ALT/SGPT) 8 U/L (12-78) L 9 U/L (12-78) L Alkaline Phosphatase 51 U/L (46-116) 52 U/L (46-116) Ammonia < 10 umol/L (11-32) L < 10 umol/L (11-32) L Troponin I 0.000 ng/mL (0.000-0.056) Total Protein 7.9 G/DL (6.4-8.2) 7.8 G/DL (6.4-8.2) Albumin 3.5 G/DL (3.4-5.0) 3.4 G/DL (3.4-5.0) Globulin 4.4 g/dL 4.4 g/dL Albumin/Globulin Ratio 0.8 (1.0-2.7) L 0.8 (1.0-2.7) L Thyroid Stimulating Hormone (TSH) 1.249 uiU/mL (0.358-3.740) Serum Alcohol < 3 mg/dL Urine Color Yellow Urine Appearance Clear Urine pH 6 (4.5-8.0) Urine Specific [place] 1.015 (1.005-1.035) Urine Protein Negative (NEGATIVE) Urine Glucose (UA) Negative (NEGATIVE) Urine Ketones 1+ (NEGATIVE) H Urine Blood 3+ (NEGATIVE) H Urine Nitrite Negative (NEGATIVE) Urine Bilirubin Negative (NEGATIVE) Urine Urobilinogen 1 MG/DL (0.0-1.0) H Urine Leukocyte Esterase Negative (NEGATIVE) Urine RBC 5-10 /HPF (0 - 0) H Urine WBC 0 /HPF (0 - 0) Urine Squamous Epithelial Cells Few /LPF (NONE/OCC) Urine Bacteria Occasional /HPF (NONE) Urine Opiates Screen Negative (NEGATIVE) Urine Barbiturates Screen Negative (NEGATIVE) Phencyclidine (PCP) Screen Negative (NEGATIVE) Urine Amphetamines Screen Negative (NEGATIVE) Urine Benzodiazepines Screen Negative (NEGATIVE) Urine Cocaine Screen Negative (NEGATIVE) Urine Marijuana (THC) Screen Negative (NEGATIVE) Triglycerides Level 83 MG/DL (30-150) Cholesterol Level 205 MG/DL (< 200) H LDL Cholesterol 141 mg/dL (<100) H HDL Cholesterol 53 MG/DL (40-60) Cholesterol/HDL Ratio 3.9 (3.3-4.4) Microbiology Date/Time Source Procedure Growth Status 06/07/18 18:50 Rectum Received Height (Feet): 5 Height (Inches): 7.00 Weight (Pounds): 118 Medications Current Medications Medications (Trade) Dose Ordered Sig/Kun Route PRN Reason Start Time Stop Time Status Last Admin Dose Admin Acetaminophen (Tylenol) 650 mg Q4H PRN ORAL fever 06/07/18 21:45 07/07/18 21:44 Al Hydroxide/Mg Hydroxide (Mylanta II) 30 ml Q6H PRN ORAL dyspepsia 06/07/18 21:45 07/07/18 21:44 Buspirone HCl (Buspar) 5 mg BID ORAL 06/08/18 09:00 07/08/18 08:59 06/08/18 08:13 Dextrose (Dextrose 50%) 25 ml Q30M PRN IV Hypoglycemia 06/07/18 21:45 07/07/18 21:44 Dextrose (Dextrose 50%) 50 ml Q30M PRN IV Hypoglycemia 06/07/18 21:45 07/07/18 21:44 Heparin Sodium (Porcine) (Heparin 5000 units/ml) 5,000 units EVERY 12 HOURS SUBQ 06/08/18 09:00 07/08/18 08:59 06/08/18 08:14 Insulin Aspart (NovoLOG) BEFORE MEALS AND HS SUBQ 06/08/18 06:30 07/08/18 06:29 06/08/18 11:38 Levetiracetam (Keppra) 500 mg Q12HR ORAL 06/08/18 09:00 07/08/18 08:59 06/08/18 08:13 Lorazepam (Ativan 2mg/ml 1ml) 0.5 mg Q4H PRN IV For Anxiety 06/07/18 21:45 06/14/18 21:44 Morphine Sulfate (Morphine Sulfate) 1 mg Q4H PRN IVP For Pain 06/07/18 21:45 06/14/18 21:44 Olanzapine (ZyPREXA) 2.5 mg BID ORAL 06/08/18 09:00 07/08/18 08:59 06/08/18 08:13 Ondansetron HCl (Zofran) 4 mg Q6H PRN IVP Nausea & Vomiting 06/07/18 21:45 07/07/18 21:44 Polyethylene Glycol (Miralax) 17 gm HSPRN PRN ORAL Constipation 06/07/18 21:45 07/07/18 21:44 Zolpidem Tartrate (Ambien) 5 mg HSPRN PRN ORAL Insomnia 06/07/18 21:45 06/14/18 21:44 06/08/18 02:40 Assessment/Plan Problem List: (1) Acute encephalopathy ICD Codes: G93.40 - Encephalopathy, unspecified SNOMED: 82466207, 180120796 (2) COPD (chronic obstructive pulmonary disease) ICD Codes: J44.9 - Chronic obstructive pulmonary disease, unspecified SNOMED: 01388257 (3) Seizure disorder ICD Codes: G40.909 - Seizure disorder SNOMED: 384437230 (4) HTN (hypertension) ICD Codes: I10 - Hypertension SNOMED: 38979324 (5) DM (diabetes mellitus) ICD Codes: E11.9 - Diabetes mellitus SNOMED: 28850654 Assessment/Plan rule out acute hepatic encephalopathy. unlikely considering normal Neuro evaluation sliding scale diabetic diet fall precaution seizure precaution Mey Latham MD Jun 08, 2018 12:48
--- NOTE | 2018-06-08 13:00 | Cardiac Electrophysiology PN ---
Subjective Subjective [id number] Objective Last 24 Hour Vital Signs Date Time Temp Pulse Resp B/P (MAP) Pulse Ox O2 Delivery O2 Flow Rate FiO2 06/08/18 12:00 99.5 66 18 123/73 (90) 97 06/08/18 09:00 Room Air 06/08/18 08:00 97.0 79 18 100/67 (78) 97 06/08/18 04:00 97.7 66 20 144/75 (98) 97 06/08/18 01:00 Room Air 06/08/18 00:32 97.5 61 18 151/81 (104) 96 06/07/18 23:50 97.4 72 20 158/79 100 Room Air 06/07/18 23:30 97.4 72 20 158/79 100 Room Air 06/07/18 19:01 98.2 80 22 162/82 98 Room Air 06/07/18 17:13 98.2 76 21 125/76 96 Room Air 06/07/18 16:54 94 21 Room Air 06/07/18 15:53 98.2 94 21 115/70 91 Room Air Intake and Output 06/07/18 06/08/18 18:59 06:59 Intake Total 420 ml Balance 420 ml Intake Oral 420 ml # Voids 3 # Bowel Movements 3 Laboratory Tests Test 06/07/18 17:10 06/07/18 19:00 06/07/18 21:32 06/08/18 10:05 White Blood Count 6.0 K/UL (4.8-10.8) 4.7 K/UL (4.8-10.8) L Red Blood Count 3.92 M/UL (4.70-6.10) L 4.01 M/UL (4.70-6.10) L Hemoglobin 11.7 G/DL (14.2-18.0) L 11.8 G/DL (14.2-18.0) L Hematocrit 34.6 % (42.0-52.0) L 35.5 % (42.0-52.0) L Mean Corpuscular Volume 88 FL (80-99) 88 FL (80-99) Mean Corpuscular Hemoglobin 29.8 PG (27.0-31.0) 29.5 PG (27.0-31.0) Mean Corpuscular Hemoglobin Concent 33.8 G/DL (32.0-36.0) 33.3 G/DL (32.0-36.0) Red Cell Distribution Width 11.4 % (11.6-14.8) L 11.7 % (11.6-14.8) Platelet Count 316 K/UL (150-450) 290 K/UL (150-450) Mean Platelet Volume 6.3 FL (6.5-10.1) L 6.5 FL (6.5-10.1) Neutrophils (%) (Auto) 55.6 % (45.0-75.0) 57.5 % (45.0-75.0) Lymphocytes (%) (Auto) 35.0 % (20.0-45.0) 30.4 % (20.0-45.0) Monocytes (%) (Auto) 8.0 % (1.0-10.0) 8.9 % (1.0-10.0) Eosinophils (%) (Auto) 0.5 % (0.0-3.0) 2.0 % (0.0-3.0) Basophils (%) (Auto) 1.0 % (0.0-2.0) 1.2 % (0.0-2.0) Prothrombin Time 10.7 SEC (9.30-11.50) Prothromb Time International Ratio 1.0 (0.9-1.1) Activated Partial Thromboplast Time 27 SEC (23-33) Sodium Level 139 MMOL/L (136-145) 140 MMOL/L (136-145) Potassium Level 4.3 MMOL/L (3.5-5.1) 4.1 MMOL/L (3.5-5.1) Chloride Level 103 MMOL/L (98-107) 104 MMOL/L (98-107) Carbon Dioxide Level 28 MMOL/L (21-32) 29 MMOL/L (21-32) Anion Gap 8 mmol/L (5-15) 7 mmol/L (5-15) Blood Urea Nitrogen 28 mg/dL (7-18) H 22 mg/dL (7-18) H Creatinine 0.9 MG/DL (0.55-1.30) 0.9 MG/DL (0.55-1.30) Estimat Glomerular Filtration Rate > 60 mL/min (>60) > 60 mL/min (>60) Glucose Level 177 MG/DL (74-106) H 168 MG/DL (74-106) H Calcium Level 8.9 MG/DL (8.5-10.1) 8.7 MG/DL (8.5-10.1) Total Bilirubin 0.3 MG/DL (0.2-1.0) 0.3 MG/DL (0.2-1.0) Aspartate Amino Transf (AST/SGOT) 10 U/L (15-37) L 11 U/L (15-37) L Alanine Aminotransferase (ALT/SGPT) 8 U/L (12-78) L 9 U/L (12-78) L Alkaline Phosphatase 51 U/L (46-116) 52 U/L (46-116) Ammonia < 10 umol/L (11-32) L < 10 umol/L (11-32) L Troponin I 0.000 ng/mL (0.000-0.056) Total Protein 7.9 G/DL (6.4-8.2) 7.8 G/DL (6.4-8.2) Albumin 3.5 G/DL (3.4-5.0) 3.4 G/DL (3.4-5.0) Globulin 4.4 g/dL 4.4 g/dL Albumin/Globulin Ratio 0.8 (1.0-2.7) L 0.8 (1.0-2.7) L Thyroid Stimulating Hormone (TSH) 1.249 uiU/mL (0.358-3.740) Serum Alcohol < 3 mg/dL Urine Color Yellow Urine Appearance Clear Urine pH 6 (4.5-8.0) Urine Specific [place] 1.015 (1.005-1.035) Urine Protein Negative (NEGATIVE) Urine Glucose (UA) Negative (NEGATIVE) Urine Ketones 1+ (NEGATIVE) H Urine Blood 3+ (NEGATIVE) H Urine Nitrite Negative (NEGATIVE) Urine Bilirubin Negative (NEGATIVE) Urine Urobilinogen 1 MG/DL (0.0-1.0) H Urine Leukocyte Esterase Negative (NEGATIVE) Urine RBC 5-10 /HPF (0 - 0) H Urine WBC 0 /HPF (0 - 0) Urine Squamous Epithelial Cells Few /LPF (NONE/OCC) Urine Bacteria Occasional /HPF (NONE) Urine Opiates Screen Negative (NEGATIVE) Urine Barbiturates Screen Negative (NEGATIVE) Phencyclidine (PCP) Screen Negative (NEGATIVE) Urine Amphetamines Screen Negative (NEGATIVE) Urine Benzodiazepines Screen Negative (NEGATIVE) Urine Cocaine Screen Negative (NEGATIVE) Urine Marijuana (THC) Screen Negative (NEGATIVE) Triglycerides Level 83 MG/DL (30-150) Cholesterol Level 205 MG/DL (< 200) H LDL Cholesterol 141 mg/dL (<100) H HDL Cholesterol 53 MG/DL (40-60) Cholesterol/HDL Ratio 3.9 (3.3-4.4) Microbiology Date/Time Source Procedure Growth Status 06/07/18 18:50 Rectum Received Javier Becker MD Jun 08, 2018 13:00
--- NOTE | 2018-06-08 13:05 | GI Initial Consult Note ---
History of Present Illness General Date patient seen: Jun 08, 2018 Time patient seen: 13:06 Reason for Hospitalization: General Complaint Referring physician: FABIO GASTELUM Reason for Consultation: HEPATIC ENCEPHALOPATHY Present Illness HPI 67-year-old male sent from assisted for change in mental status, thought to be likely hepatic encephalopathy. Patient has a history of a stroke and residual left hemiparesis, Serbian-speaking, and is currently having no complaints but is only alert oriented to person. GI consulted for AMS, possible hepatic encephalopathy. ROS limited, patient is alert and oriented x1 denies any pain at this time. Previous history noted in chart include; H/O DM. H/O paranoid schizophrenia. H/O COPD. Patient had previous admission here at [facility] 1 year ago, where he passed ST evaluation. Unknown history of endoscopy / colonoscopy. Labs reviewed; GI Consult for dysphagia. HPI as noted above. ROS limited, patient lethargic possibly due to over medication. Pt seen on floor, asleep NAD with no active s/ sx of N/V/D. Patient presents today with mild anemia and dysphagia. ST evaluation noted patient high risk for aspiration at this time. Unknown history of any endoscopic procedures. Labs reviewed show mild anemia and leukopenia. No transaminitis. Ammonia levels low. Home Meds Active Scripts Lisinopril (LISINOPRIL*) 20 Mg Tablet, 20 MG ORAL DAILY, #1 TAB Prov:Ny Diez [facility] 09/21/15 Reported Medications Metformin Hcl* (METFORMIN HCL*) 1,000 Mg Tablet, 1000 MG ORAL BID, TAB 06/08/18 Acetaminophen* (TYLENOL EXTRA STRENGTH*) 500 Mg Tablet, 500 MG ORAL Q4HR PRN for Moderate [place] Pain (5-7), TAB 0 Refills 06/08/18 Acetaminophen (Tylenol) 325 Mg Capsule, 325 MG PO Q4HR PRN for Mild Pain (Pain Scale 1-3), CAP 06/08/18 Na Phos,M-B/Na Phos,Di-Ba* (FLEET ENEMA*) 133 Ml Enema, 133 ML RECTAL DAILY PRN for Constipation, ML 0 Refills 06/08/18 Insulin Aspart (Novolog Flexpen) 100 Unit/1 Ml Insuln.pen 09/27/17 Insulin Aspart (NOVOLOG) 100 Unit/1 Ml Cartridge, 100 UNIT SQ per sliding scale 09/27/17 Heparin Sod (Porcine) (HEPARIN SODIUM*) 5 000/1 Ml Vial, 5000 UNITS SUBQ EVERY 12 HOURS, VIAL 09/27/17 Trimethoprim/Sulfamethoxazole 160/800* (BACTRIM DS TABLET*) 1 Each Tablet, 1 TAB ORAL BID, #18 TAB 18 Trimethoprim/Sulfamethoxazole 160/800* (BACTRIM DS TABLET*) 1 Each Tablet, 1 TAB ORAL BID, #18 TAB 18 Multivitamin With Minerals (MULTIVITAMINS WITH MINERALS*) 1 Each Tablet, 1 TAB ORAL DAILY, TAB 09/23/17 Na Phos,M-B/Na Phos,Di-Ba* (FLEET ENEMA*) 133 Ml Enema, 133 ML RECTAL PRN for Constipation 09/23/17 Bisacodyl (BISACODYL) 10 Mg Supp.rect, 10 MG RC PRN for Constipation, SUPP 09/23/17 Docusate Sodium* (DOCUSATE SODIUM*) 100 Mg Capsule, 100 MG ORAL DAILY, CAP 09/23/17 Nph, Human Insulin Isophane* (NOVOLIN N*) 100 Unit/1 Ml Vial, 6 UNITS SUBQ QPM, VIAL 09/23/17 Nph, Human Insulin Isophane* (NOVOLIN N*) 100 Unit/1 Ml Vial, 12 UNITS SUBQ BEFORE BREAKFAST, VIAL 09/23/17 Acetaminophen* (ACETAMINOPHEN 325MG TABLET*) 325 Mg Tablet, 650 MG ORAL Q4H PRN for Fever/Headache/Mild Pain 09/23/17 Magnesium Hydroxide* (MILK OF MAGNESIA*) 400 Mg/5 Ml Oral.susp, 30 ML ORAL HS PRN for Constipation, ML 09/23/17 Valproate Sodium (VALPROIC ACID) 250 Mg/5 Ml Solution, 10 ML PO BID 09/23/17 Levetiracetam* (LEVETIRACETAM*) 500 Mg Tablet, 500 MG ORAL Q12HR 04/13/17 Olanzapine* (ZYPREXA*) 2.5 Mg Tablet, 2.5 MG ORAL BID 05/18/16 Buspirone Hcl* (BUSPAR*) 10 Mg Tablet, 5 MG ORAL BID 05/18/16 Finasteride* (PROSCAR*) 5 Mg Tablet, 5 MG ORAL DAILY 05/18/16 Med list reviewed/reconciled: Yes Allergies: Coded Allergies: No Known Allergies (Unverified , 01/05/13) Patient History Limited by: medical condition History Provided By: Medical Record PMH Narrative Past Medical History: No History, Except For Hx Hypertension: Yes Hx COPD: Yes Hx Diabetes: Yes Hx Cancer: No Hx Gastrointestinal Problems: Yes Hx Neurological Problems: Yes Hx Cerebrovascular Accident: Yes Hx Seizures: Yes Hx Epilepsy: Yes Hx Dysphasia: Yes Social History: Denies: smoking, alcohol use, drug use, other Review of Systems All Other Systems: negative except mentioned in HPI Physical Exam Vital Signs Date Time Temp Pulse Resp B/P (MAP) Pulse Ox O2 Delivery O2 Flow Rate FiO2 06/07/18 15:53 98.2 94 21 115/70 91 Room Air Sp02 EP Interpretation: reviewed, normal Labs Laboratory Tests Test 06/07/18 17:10 06/07/18 19:00 06/07/18 21:32 06/08/18 10:05 White Blood Count 6.0 K/UL (4.8-10.8) 4.7 K/UL (4.8-10.8) L Red Blood Count 3.92 M/UL (4.70-6.10) L 4.01 M/UL (4.70-6.10) L Hemoglobin 11.7 G/DL (14.2-18.0) L 11.8 G/DL (14.2-18.0) L Hematocrit 34.6 % (42.0-52.0) L 35.5 % (42.0-52.0) L Mean Corpuscular Volume 88 FL (80-99) 88 FL (80-99) Mean Corpuscular Hemoglobin 29.8 PG (27.0-31.0) 29.5 PG (27.0-31.0) Mean Corpuscular Hemoglobin Concent 33.8 G/DL (32.0-36.0) 33.3 G/DL (32.0-36.0) Red Cell Distribution Width 11.4 % (11.6-14.8) L 11.7 % (11.6-14.8) Platelet Count 316 K/UL (150-450) 290 K/UL (150-450) Mean Platelet Volume 6.3 FL (6.5-10.1) L 6.5 FL (6.5-10.1) Neutrophils (%) (Auto) 55.6 % (45.0-75.0) 57.5 % (45.0-75.0) Lymphocytes (%) (Auto) 35.0 % (20.0-45.0) 30.4 % (20.0-45.0) Monocytes (%) (Auto) 8.0 % (1.0-10.0) 8.9 % (1.0-10.0) Eosinophils (%) (Auto) 0.5 % (0.0-3.0) 2.0 % (0.0-3.0) Basophils (%) (Auto) 1.0 % (0.0-2.0) 1.2 % (0.0-2.0) Prothrombin Time 10.7 SEC (9.30-11.50) Prothromb Time International Ratio 1.0 (0.9-1.1) Activated Partial Thromboplast Time 27 SEC (23-33) Sodium Level 139 MMOL/L (136-145) 140 MMOL/L (136-145) Potassium Level 4.3 MMOL/L (3.5-5.1) 4.1 MMOL/L (3.5-5.1) Chloride Level 103 MMOL/L (98-107) 104 MMOL/L (98-107) Carbon Dioxide Level 28 MMOL/L (21-32) 29 MMOL/L (21-32) Anion Gap 8 mmol/L (5-15) 7 mmol/L (5-15) Blood Urea Nitrogen 28 mg/dL (7-18) H 22 mg/dL (7-18) H Creatinine 0.9 MG/DL (0.55-1.30) 0.9 MG/DL (0.55-1.30) Estimat Glomerular Filtration Rate > 60 mL/min (>60) > 60 mL/min (>60) Glucose Level 177 MG/DL (74-106) H 168 MG/DL (74-106) H Calcium Level 8.9 MG/DL (8.5-10.1) 8.7 MG/DL (8.5-10.1) Total Bilirubin 0.3 MG/DL (0.2-1.0) 0.3 MG/DL (0.2-1.0) Aspartate Amino Transf (AST/SGOT) 10 U/L (15-37) L 11 U/L (15-37) L Alanine Aminotransferase (ALT/SGPT) 8 U/L (12-78) L 9 U/L (12-78) L Alkaline Phosphatase 51 U/L (46-116) 52 U/L (46-116) Ammonia < 10 umol/L (11-32) L < 10 umol/L (11-32) L Troponin I 0.000 ng/mL (0.000-0.056) Total Protein 7.9 G/DL (6.4-8.2) 7.8 G/DL (6.4-8.2) Albumin 3.5 G/DL (3.4-5.0) 3.4 G/DL (3.4-5.0) Globulin 4.4 g/dL 4.4 g/dL Albumin/Globulin Ratio 0.8 (1.0-2.7) L 0.8 (1.0-2.7) L Thyroid Stimulating Hormone (TSH) 1.249 uiU/mL (0.358-3.740) Serum Alcohol < 3 mg/dL Urine Color Yellow Urine Appearance Clear Urine pH 6 (4.5-8.0) Urine Specific [place] 1.015 (1.005-1.035) Urine Protein Negative (NEGATIVE) Urine Glucose (UA) Negative (NEGATIVE) Urine Ketones 1+ (NEGATIVE) H Urine Blood 3+ (NEGATIVE) H Urine Nitrite Negative (NEGATIVE) Urine Bilirubin Negative (NEGATIVE) Urine Urobilinogen 1 MG/DL (0.0-1.0) H Urine Leukocyte Esterase Negative (NEGATIVE) Urine RBC 5-10 /HPF (0 - 0) H Urine WBC 0 /HPF (0 - 0) Urine Squamous Epithelial Cells Few /LPF (NONE/OCC) Urine Bacteria Occasional /HPF (NONE) Urine Opiates Screen Negative (NEGATIVE) Urine Barbiturates Screen Negative (NEGATIVE) Phencyclidine (PCP) Screen Negative (NEGATIVE) Urine Amphetamines Screen Negative (NEGATIVE) Urine Benzodiazepines Screen Negative (NEGATIVE) Urine Cocaine Screen Negative (NEGATIVE) Urine Marijuana (THC) Screen Negative (NEGATIVE) Triglycerides Level 83 MG/DL (30-150) Cholesterol Level 205 MG/DL (< 200) H LDL Cholesterol 141 mg/dL (<100) H HDL Cholesterol 53 MG/DL (40-60) Cholesterol/HDL Ratio 3.9 (3.3-4.4) General Appearance: well appearing, no apparent distress, alert Head: normocephalic EENT: PERRL/EOMI, normal ENT inspection Neck: supple Respiratory: normal breath sounds, no respiratory distress Cardiovascular: normal rate Gastrointestinal: normal inspection, non tender, soft, normal bowel sounds, non -distended Rectal: deferred Genitourinary: deferred Musculoskeletal: other - left hemiparesis Neurologic: alert, responsive Psychiatric: memory normal Skin: normal inspection, normal color, no rash, warm/dry, palpation normal, well hydrated Lymphatic: normal inspection, no adenopathy Current Medications Current Medications Medications (Trade) Dose Ordered Sig/Kun Route PRN Reason Start Time Stop Time Status Last Admin Dose Admin Acetaminophen (Tylenol) 650 mg Q4H PRN ORAL fever 06/07/18 21:45 07/07/18 21:44 Al Hydroxide/Mg Hydroxide (Mylanta II) 30 ml Q6H PRN ORAL dyspepsia 06/07/18 21:45 07/07/18 21:44 Buspirone HCl (Buspar) 5 mg BID ORAL 06/08/18 09:00 07/08/18 08:59 06/08/18 08:13 Dextrose (Dextrose 50%) 25 ml Q30M PRN IV Hypoglycemia 06/07/18 21:45 07/07/18 21:44 Dextrose (Dextrose 50%) 50 ml Q30M PRN IV Hypoglycemia 06/07/18 21:45 07/07/18 21:44 Heparin Sodium (Porcine) (Heparin 5000 units/ml) 5,000 units EVERY 12 HOURS SUBQ 06/08/18 09:00 07/08/18 08:59 06/08/18 08:14 Insulin Aspart (NovoLOG) BEFORE MEALS AND HS SUBQ 06/08/18 06:30 07/08/18 06:29 06/08/18 11:38 Levetiracetam (Keppra) 500 mg Q12HR ORAL 06/08/18 09:00 07/08/18 08:59 06/08/18 08:13 Lorazepam (Ativan 2mg/ml 1ml) 0.5 mg Q4H PRN IV For Anxiety 06/07/18 21:45 06/14/18 21:44 Morphine Sulfate (Morphine Sulfate) 1 mg Q4H PRN IVP For Pain 06/07/18 21:45 06/14/18 21:44 Olanzapine (ZyPREXA) 2.5 mg BID ORAL 06/08/18 09:00 07/08/18 08:59 06/08/18 08:13 Ondansetron HCl (Zofran) 4 mg Q6H PRN IVP Nausea & Vomiting 06/07/18 21:45 07/07/18 21:44 Polyethylene Glycol (Miralax) 17 gm HSPRN PRN ORAL Constipation 06/07/18 21:45 07/07/18 21:44 Zolpidem Tartrate (Ambien) 5 mg HSPRN PRN ORAL Insomnia 06/07/18 21:45 06/14/18 21:44 06/08/18 02:40 GI: Plan Problems: (1) Dysphagia (2) Anemia (3) Acute encephalopathy Plan AMS not due to hepatic encephalopathy given no transaminitis, no history of cirrhosis and normal ammonia levels. history of dysphagia >> passed by ST last year CVA with left hemiparesis okay to advance diet DM management anemia work up OB stool r/o GI bleed monitor H&H, prn transfusions bowel regime ppi fu labs outpatient GI procedures Discussed with Dr. Stephens. Thank you for this patient referral, we will follow. The patient was seen and examined at bedside and all new and available data was reviewed in the patients chart. I agree with the above findings, impression and plan. (Patient seen earlier today. Signature stamp does not reflect patient encounter time.). - MD Mary Kay Black,[facility] Jun 08, 2018 13:05
[2018-06-08 16:00] VITALS: BP 141/78
--- NOTE | 2018-06-08 19:30 | History and Physical Report ---
DATE OF ADMISSION: 06/07/2018 CONSULTANTS: 1. Mey Latham M.D. 2. James Stephens M.D. CHIEF COMPLAINT: Increased confusion, weakness, and hepatic encephalopathy. BRIEF HISTORY: This is a 67-year-old male from [facility] presented with the above-mentioned diagnosis, admitted to medical floor for further treatment. Currently, eating, calm, slightly confused, no complaint. PAST MEDICAL HISTORY: Includes hypertension, chronic obstructive pulmonary disease, seizure, diabetes, and CVA. PAST SURGICAL HISTORY: Unknown. MEDICATIONS: Include BuSpar, Keppra, Zyprexa, heparin, NovoLog, Tylenol, morphine, MiraLAX, Zofran, Ambien, and Mylanta. ALLERGIES: Denies. SOCIAL HISTORY: No smoking. No alcohol. No intravenous drug abuse. FAMILY HISTORY: Noncontributory. REVIEW OF SYSTEMS: No chest pain. No shortness of breath. No nausea, vomiting, or diarrhea. Unavailable. The patient is not very forthcoming. PHYSICAL EXAMINATION: GENERAL: Calm in bed, slightly confused. No complaint. Oriented x1, in no acute distress. VITAL SIGNS: Temperature is 99, pulse 66, respirations 18, and blood pressure 123/73. CARDIOVASCULAR: No murmurs. LUNGS: Distant and clear. ABDOMEN: Bowel sounds positive. Nontender and nondistended. EXTREMITIES: No cyanosis, clubbing, or edema. NEUROLOGIC: The patient moves all extremities, slightly weak. LABORATORY AND DIAGNOSTIC DATA: Labs, at this time, show hemoglobin 11.8, white count 4.7, otherwise CBC is normal. BMP show BUN 22 and glucose 168. INR is 1.0. Urine toxicology is negative. Urinalysis 3+ blood and 1+ ketone. ASSESSMENT: 1. Weakness. 2. Hypertension. 3. Encephalopathy. 4. Chronic obstructive pulmonary disease. 5. Seizure. 6. Diabetes. 7. CVA. 8. Anemia. 9. Confusion. PLAN: 1. Continue previous medications. 2. Blood pressure control. 3. Seizure control. 4. Blood sugar control. 5. Dietary followup. 6. OT, PT, and dietary evaluation. 7. CBC and BMP in the morning. 8. We will continue to follow the patient. Nura Carter D.O. DR: ALEJA JOB#: [id number] CC:
[2018-06-08 20:00] VITALS: BP 135/71
--- NOTE | 2018-06-08 20:00 | Consultation ---
DATE OF CONSULTATION: 06/08/2018 CARDIOLOGY CONSULTATION CONSULTING PHYSICIAN: Javier Becker M.D. REFERRING PHYSICIAN: Nura Carter D.O. REASON FOR CONSULTATION: Evaluation of hypertension. HISTORY OF PRESENT ILLNESS: The patient is a 67-year-old gentleman with history of hypertension and history of CVA with left hemiplegia, as well as seizure disorder, chronic obstructive pulmonary disease, who is bedbound, group home resident, was sent for altered mental status and hypertension. The patient was admitted and Cardiology consultation was obtained for further evaluation. At the time of my evaluation, the patient is alert, but is not fully communicative. REVIEW OF SYSTEMS: Cannot be obtained. PAST MEDICAL HISTORY: Includes: 1. Hypertension. 2. Seizure disorder. 3. CVA. 4. Chronic obstructive pulmonary disease. 5. Left hemiplegia. MEDICATIONS: Include lisinopril, levetiracetam, metformin, Novolin, Zyprexa, Bactrim, valproic acid. FAMILY HISTORY: Noncontributory. PHYSICAL EXAMINATION: VITAL SIGNS: Blood pressure of 122/73, pulse 66, respirations 18, and he is afebrile. His initial blood pressure was 151/81. HEENT: Head and neck Showed no JVD or carotid bruit. LUNGS: Clear. CARDIOVASCULAR: Regular S1 and S2 with no gallop or murmur. ABDOMEN: Soft. EXTREMITIES: No pitting edema. ASSESSMENT AND PLAN: 1. Hypertension. Resume the patient's lisinopril. I will add p.r.n. clonidine to his medical regimen and get an echocardiogram to evaluate for ejection fraction and wall motion abnormality. 2. Seizure disorder on Keppra. 3. Altered mental status and psychosis, on Zyprexa. 4. Diabetes on insulin. 5. History of CVA with left hemiplegia. Thank you very much, Dr. Carter for allowing me to participate in the care of this patient. Please do not hesitate to contact me for any questions regarding my evaluation. Javier Becker M.D. DR: Giorgio JOB#: [id number] CC:
[2018-06-09] VITALS: BP 119/75
[2018-06-09 04:00] VITALS: BP 137/87
[2018-06-09] MEDS: NovoLOG Insulin Flexpen SUBQ SCH ×5 (06:30→22:01)
--- NOTE | 2018-06-09 06:44 | General Progress Note ---
Assessment/Plan Problem List: (1) Acute encephalopathy ICD Codes: G93.40 - Encephalopathy, unspecified SNOMED: 98829369, 756479282 (2) Anemia ICD Codes: D64.9 - Anemia, unspecified SNOMED: 518053433 (3) Seizure disorder ICD Codes: G40.909 - Seizure disorder SNOMED: 179953551 (4) HTN (hypertension) ICD Codes: I10 - Hypertension SNOMED: 20072700 (5) DM (diabetes mellitus) ICD Codes: E11.9 - Diabetes mellitus SNOMED: 46140574 (6) Arterial ischemic stroke, MCA (middle cerebral artery), right, chronic ICD Codes: Z86.73 - Arterial ischemic stroke, MCA (middle cerebral artery), right, chronic SNOMED: 076855454 Assessment/Plan anemia work up caloric count fu labs dvt prophylaxis Subjective ROS Limited/Unobtainable: No Allergies: Coded Allergies: No Known Allergies (Unverified , 01/05/13) Objective Last 24 Hour Vital Signs Date Time Temp Pulse Resp B/P (MAP) Pulse Ox O2 Delivery O2 Flow Rate FiO2 06/09/18 04:00 97.2 64 16 137/87 (104) 98 06/09/18 00:00 61 16 119/75 (90) 06/08/18 21:00 Room Air 06/08/18 20:00 97.0 68 20 135/71 (92) 96 06/08/18 16:00 97.5 70 18 141/78 (99) 97 06/08/18 12:00 99.5 66 18 123/73 (90) 97 06/08/18 09:00 Room Air 06/08/18 08:00 97.0 79 18 100/67 (78) 97 Intake and Output 06/08/18 06/09/18 19:00 07:00 Intake Total 520 ml Balance 520 ml Intake Oral 520 ml # Voids 5 Laboratory Tests 06/08/18 10:05: White Blood Count 4.7L, Red Blood Count 4.01L, Hemoglobin 11.8L, Hematocrit 35.5L, Mean Corpuscular Volume 88, Mean Corpuscular Hemoglobin 29.5, Mean Corpuscular Hemoglobin Concent 33.3, Red Cell Distribution Width 11.7, Platelet Count 290, Mean Platelet Volume 6.5, Neutrophils (%) (Auto) 57.5, Lymphocytes (% ) (Auto) 30.4, Monocytes (%) (Auto) 8.9, Eosinophils (%) (Auto) 2.0, Basophils ( %) (Auto) 1.2, Sodium Level 140, Potassium Level 4.1, Chloride Level 104, Carbon Dioxide Level 29, Anion Gap 7, Blood Urea Nitrogen 22H, Creatinine 0.9, Estimat Glomerular Filtration Rate > 60, Glucose Level 168H, Calcium Level 8.7, Total Bilirubin 0.3, Aspartate Amino Transf (AST/SGOT) 11L, Alanine Aminotransferase (ALT/SGPT) 9L, Alkaline Phosphatase 52, Total Protein 7.8, Albumin 3.4, Globulin 4.4, Albumin/Globulin Ratio 0.8L, Triglycerides Level 83, Cholesterol Level 205H, LDL Cholesterol 141H, HDL Cholesterol 53, Cholesterol/ HDL Ratio 3.9 06/09/18 05:40: White Blood Count [Pending], Red Blood Count [Pending], Hemoglobin [Pending], Hematocrit [Pending], Mean Corpuscular Volume [Pending], Mean Corpuscular Hemoglobin [Pending], Mean Corpuscular Hemoglobin Concent [Pending], Red Cell Distribution Width [Pending], Platelet Count [Pending], Mean Platelet Volume [ Pending], Neutrophils (%) (Auto) [Pending], Lymphocytes (%) (Auto) [Pending], Monocytes (%) (Auto) [Pending], Eosinophils (%) (Auto) [Pending], Basophils (%) (Auto) [Pending], Sodium Level [Pending], Potassium Level [Pending], Chloride Level [Pending], Carbon Dioxide Level [Pending], Blood Urea Nitrogen [Pending], Creatinine [Pending], Estimat Glomerular Filtration Rate [Pending], Glucose Level [Pending], Calcium Level [Pending], Total Bilirubin [Pending], Aspartate Amino Transf (AST/SGOT) [Pending], Alanine Aminotransferase (ALT/SGPT) [Pending] , Alkaline Phosphatase [Pending], Total Protein [Pending], Albumin [Pending], Globulin [Pending], Prothrombin Time [Pending], Prothromb Time International Ratio [Pending], Activated Partial Thromboplast Time [Pending], Phosphorus Level [Pending], Magnesium Level [Pending], Troponin I [Pending], Pro-B-Type Natriuretic Peptide [Pending] Height (Feet): 5 Height (Inches): 7.00 Weight (Pounds): 118 General Appearance: confused EENT: normal ENT inspection Neck: supple Cardiovascular: normal rate Respiratory/Chest: lungs clear Abdomen: normal bowel sounds, non tender, soft Extremities: non-tender James Stephens MD Jun 09, 2018 06:44
[2018-06-09 06:46] LABS: BASOPHILS % (AUTO) 1.4 % (0.0-2.0); EOSINOPHILS % (AUTO) 1.5 % (0.0-3.0); HEMATOCRIT 35.7 % (42.0-52.0); LYMPHOCYTES % (AUTO) 49.6 % (20.0-45.0); MEAN CORPUSCULAR VOLUME 89 FL (80-99); MONOCYTES % (AUTO) 9.5 % (1.0-10.0); PLATELET COUNT 303 K/UL (150-450); RED BLOOD COUNT 4.03 M/UL (4.70-6.10); RED CELL DISTRIBUTION WIDTH 12.1 % (11.6-14.8); WHITE BLOOD COUNT 5.2 K/UL (4.8-10.8)
[2018-06-09 07:09] LABS: ALANINE AMINOTRANSFERASE 8 U/L (12-78); ALBUMIN 3.5 G/DL (3.4-5.0); ALBUMIN/GLOBULIN RATIO 0.8 (1.0-2.7); ALKALINE PHOSPHATASE 49 U/L (46-116); ANION GAP 6 mmol/L (5-15); ASPARTATE AMINO TRANSFERASE 11 U/L (15-37); BILIRUBIN,TOTAL 0.3 MG/DL (0.2-1.0); BLOOD UREA NITROGEN 20 mg/dL (7-18); CALCIUM 8.9 MG/DL (8.5-10.1); CARBON DIOXIDE 30 MMOL/L (21-32); CHLORIDE 105 MMOL/L (98-107); CREATININE 0.9 MG/DL (0.55-1.30); POTASSIUM 3.8 MMOL/L (3.5-5.1); SODIUM 141 MMOL/L (136-145)
--- NOTE | 2018-06-09 08:15 | General Progress Note ---
Assessment/Plan Problem List: (1) Acute encephalopathy ICD Codes: G93.40 - Encephalopathy, unspecified SNOMED: 29241669, 694716413 (2) COPD (chronic obstructive pulmonary disease) ICD Codes: J44.9 - Chronic obstructive pulmonary disease, unspecified SNOMED: 91732486 (3) Anemia ICD Codes: D64.9 - Anemia, unspecified SNOMED: 819032729 (4) DM (diabetes mellitus) ICD Codes: E11.9 - Diabetes mellitus SNOMED: 23386146 (5) Acute CVA (cerebrovascular accident) ICD Codes: I63.9 - Acute CVA (cerebrovascular accident) SNOMED: 240474030 (6) Seizure disorder ICD Codes: G40.909 - Seizure disorder SNOMED: 894664759 (7) HTN (hypertension) ICD Codes: I10 - Hypertension SNOMED: 76194703 Status: unchanged Assessment/Plan ot pt diet bp bs seizure control cbc bmp am Subjective Allergies: Coded Allergies: No Known Allergies (Unverified , 01/05/13) All Systems: reviewed and negative except above Subjective calm in bed eating Objective Last 24 Hour Vital Signs Date Time Temp Pulse Resp B/P (MAP) Pulse Ox O2 Delivery O2 Flow Rate FiO2 06/09/18 04:00 97.2 64 16 137/87 (104) 98 06/09/18 00:00 61 16 119/75 (90) 06/08/18 21:00 Room Air 06/08/18 20:00 97.0 68 20 135/71 (92) 96 06/08/18 16:00 97.5 70 18 141/78 (99) 97 06/08/18 12:00 99.5 66 18 123/73 (90) 97 06/08/18 09:00 Room Air Intake and Output 06/08/18 06/09/18 19:00 07:00 Intake Total 520 ml Output Total 3 ml Balance 520 ml -3 ml Intake Oral 520 ml Output Urine Total 3 ml # Voids 5 Laboratory Tests 06/08/18 10:05: White Blood Count 4.7L, Red Blood Count 4.01L, Hemoglobin 11.8L, Hematocrit 35.5L, Mean Corpuscular Volume 88, Mean Corpuscular Hemoglobin 29.5, Mean Corpuscular Hemoglobin Concent 33.3, Red Cell Distribution Width 11.7, Platelet Count 290, Mean Platelet Volume 6.5, Neutrophils (%) (Auto) 57.5, Lymphocytes (% ) (Auto) 30.4, Monocytes (%) (Auto) 8.9, Eosinophils (%) (Auto) 2.0, Basophils ( %) (Auto) 1.2, Sodium Level 140, Potassium Level 4.1, Chloride Level 104, Carbon Dioxide Level 29, Anion Gap 7, Blood Urea Nitrogen 22H, Creatinine 0.9, Estimat Glomerular Filtration Rate > 60, Glucose Level 168H, Calcium Level 8.7, Total Bilirubin 0.3, Aspartate Amino Transf (AST/SGOT) 11L, Alanine Aminotransferase (ALT/SGPT) 9L, Alkaline Phosphatase 52, Total Protein 7.8, Albumin 3.4, Globulin 4.4, Albumin/Globulin Ratio 0.8L, Triglycerides Level 83, Cholesterol Level 205H, LDL Cholesterol 141H, HDL Cholesterol 53, Cholesterol/ HDL Ratio 3.9 06/09/18 05:40: White Blood Count 5.2, Red Blood Count 4.03L, Hemoglobin 12.0L, Hematocrit 35.7L , Mean Corpuscular Volume 89, Mean Corpuscular Hemoglobin 29.8, Mean Corpuscular Hemoglobin Concent 33.7, Red Cell Distribution Width 12.1, Platelet Count 303, Mean Platelet Volume 6.5, Neutrophils (%) (Auto) 38.0L, Lymphocytes ( %) (Auto) 49.6H, Monocytes (%) (Auto) 9.5, Eosinophils (%) (Auto) 1.5, Basophils (%) (Auto) 1.4, Sodium Level 141, Potassium Level 3.8, Chloride Level 105, Carbon Dioxide Level 30, Anion Gap 6, Blood Urea Nitrogen 20H, Creatinine 0.9, Estimat Glomerular Filtration Rate > 60, Glucose Level 132H, Calcium Level 8.9, Total Bilirubin 0.3, Aspartate Amino Transf (AST/SGOT) 11L, Alanine Aminotransferase (ALT/SGPT) 8L, Alkaline Phosphatase 49, Total Protein 7.9, Albumin 3.5, Globulin 4.4, Albumin/Globulin Ratio 0.8L, Prothrombin Time 10.9, Prothromb Time International Ratio 1.0, Activated Partial Thromboplast Time 27, Phosphorus Level 4.0, Magnesium Level 1.5L, Troponin I 0.001, Pro-B-Type Natriuretic Peptide 98, Thyroid Stimulating Hormone (TSH) 2.504 Height (Feet): 5 Height (Inches): 7.00 Weight (Pounds): 118 General Appearance: lethargic EENT: normal ENT inspection Neck: normal alignment Cardiovascular: normal peripheral pulses, normal rate, regular rhythm Respiratory/Chest: chest wall non-tender, lungs clear, normal breath sounds Abdomen: normal bowel sounds, non tender, soft Extremities: normal inspection Edema: no edema noted Arm (L), no edema noted Arm (R), no edema noted Leg (L), no edema noted Leg (R), no edema noted Pedal (L), no edema noted Pedal (R), no edema noted Generalized Neurologic: responsive, motor weakness Skin: normal pigmentation, warm/dry Nura Carter DO Jun 09, 2018 08:15
--- NOTE | 2018-06-09 08:42 | Pulmonology Progress Note ---
Assessment/Plan Assessment/Plan ASSESSMENT Acute encephalopathy on chronic psychosis COPD Hypertension Seizure disorder Severe protein calorie malnutrition Anemia Hyperlipidemia Extensive cerebrovascular disease with multiple CVAs and residual left hemiparesis Diabetes mellitus Hypo Mg PLAN OF CARE Med Surg floor CT head with evidence of multiply old infarcts, no acute intracranial pathology. Urine tox negative, serum alcohol negative ,ammonia level within range possible seizure? consider neuro eval no evidence of infection to explain AMS chest x-ray stable O2 prn to keep sat above 92 % BP management with RAGHAV and Clonidine prn ECHO with pEF 55% , mild LVH, no evidence of wall motion abnormality to the extent visualized cardio follows lipid panel with elevated TC and LDL, start Lipitor, continue low cholesterol low fat diabetic cardiac diet swallow eval replace Mg seizure precautions, continue Keppra BS management with SSI dietary recs regarding severe malnutrition implemented in POC monitor H&H with goal to keep hemoglobin above 7 , GI follows PT/OT anemia workup in progress continue Zyprexa consider psych eval -per PMD discretion case discussed and evaluated by supervising physician Subjective Allergies: Coded Allergies: No Known Allergies (Unverified , 01/05/13) Subjective no signs of resp distress Mg-1.5 Objective Last 24 Hour Vital Signs Date Time Temp Pulse Resp B/P (MAP) Pulse Ox O2 Delivery O2 Flow Rate FiO2 06/09/18 04:00 97.2 64 16 137/87 (104) 98 06/09/18 00:00 61 16 119/75 (90) 06/08/18 21:00 Room Air 06/08/18 20:00 97.0 68 20 135/71 (92) 96 06/08/18 16:00 97.5 70 18 141/78 (99) 97 06/08/18 12:00 99.5 66 18 123/73 (90) 97 06/08/18 09:00 Room Air Intake and Output 06/08/18 06/09/18 19:00 07:00 Intake Total 520 ml Output Total 3 ml Balance 520 ml -3 ml Intake Oral 520 ml Output Urine Total 3 ml # Voids 5 General Appearance: no acute distress, other - bedridden, sleeping but easily arousable, not willing to be engaged in eye contact or conversation HEENT: normocephalic, atraumatic Respiratory/Chest: lungs clear - with moderate air exchange Cardiovascular: normal rate Abdomen: normal bowel sounds, soft, non tender, non distended Extremities: no edema, other - L hemiparesis Neurologic/Psychiatric: abnormal gait - bedridden , other - not verbally responsive, Left hemiparesis Musculoskeletal: atrophy - BLE Microbiology Date/Time Source Procedure Growth Status 06/07/18 18:50 Rectum Received Laboratory Tests 06/08/18 10:05: White Blood Count 4.7L, Red Blood Count 4.01L, Hemoglobin 11.8L, Hematocrit 35.5L, Mean Corpuscular Volume 88, Mean Corpuscular Hemoglobin 29.5, Mean Corpuscular Hemoglobin Concent 33.3, Red Cell Distribution Width 11.7, Platelet Count 290, Mean Platelet Volume 6.5, Neutrophils (%) (Auto) 57.5, Lymphocytes (% ) (Auto) 30.4, Monocytes (%) (Auto) 8.9, Eosinophils (%) (Auto) 2.0, Basophils ( %) (Auto) 1.2, Sodium Level 140, Potassium Level 4.1, Chloride Level 104, Carbon Dioxide Level 29, Anion Gap 7, Blood Urea Nitrogen 22H, Creatinine 0.9, Estimat Glomerular Filtration Rate > 60, Glucose Level 168H, Calcium Level 8.7, Total Bilirubin 0.3, Aspartate Amino Transf (AST/SGOT) 11L, Alanine Aminotransferase (ALT/SGPT) 9L, Alkaline Phosphatase 52, Total Protein 7.8, Albumin 3.4, Globulin 4.4, Albumin/Globulin Ratio 0.8L, Triglycerides Level 83, Cholesterol Level 205H, LDL Cholesterol 141H, HDL Cholesterol 53, Cholesterol/ HDL Ratio 3.9 06/09/18 05:40: White Blood Count 5.2, Red Blood Count 4.03L, Hemoglobin 12.0L, Hematocrit 35.7L , Mean Corpuscular Volume 89, Mean Corpuscular Hemoglobin 29.8, Mean Corpuscular Hemoglobin Concent 33.7, Red Cell Distribution Width 12.1, Platelet Count 303, Mean Platelet Volume 6.5, Neutrophils (%) (Auto) 38.0L, Lymphocytes ( %) (Auto) 49.6H, Monocytes (%) (Auto) 9.5, Eosinophils (%) (Auto) 1.5, Basophils (%) (Auto) 1.4, Sodium Level 141, Potassium Level 3.8, Chloride Level 105, Carbon Dioxide Level 30, Anion Gap 6, Blood Urea Nitrogen 20H, Creatinine 0.9, Estimat Glomerular Filtration Rate > 60, Glucose Level 132H, Calcium Level 8.9, Total Bilirubin 0.3, Aspartate Amino Transf (AST/SGOT) 11L, Alanine Aminotransferase (ALT/SGPT) 8L, Alkaline Phosphatase 49, Total Protein 7.9, Albumin 3.5, Globulin 4.4, Albumin/Globulin Ratio 0.8L, Prothrombin Time 10.9, Prothromb Time International Ratio 1.0, Activated Partial Thromboplast Time 27, Phosphorus Level 4.0, Magnesium Level 1.5L, Troponin I 0.001, Pro-B-Type Natriuretic Peptide 98, Thyroid Stimulating Hormone (TSH) 2.504 Current Medications Medications (Trade) Dose Ordered Sig/Kun Route PRN Reason Start Time Stop Time Status Last Admin Dose Admin Acetaminophen (Tylenol) 650 mg Q4H PRN ORAL fever 06/07/18 21:45 07/07/18 21:44 Al Hydroxide/Mg Hydroxide (Mylanta II) 30 ml Q6H PRN ORAL dyspepsia 06/07/18 21:45 07/07/18 21:44 Buspirone HCl (Buspar) 5 mg BID ORAL 06/08/18 18:00 07/08/18 17:59 Dextrose (Dextrose 50%) 25 ml Q30M PRN IV Hypoglycemia 06/07/18 21:45 07/07/18 21:44 Dextrose (Dextrose 50%) 50 ml Q30M PRN IV Hypoglycemia 06/07/18 21:45 07/07/18 21:44 Docusate Sodium (Colace) 100 mg TWICE A DAY ORAL 06/09/18 09:00 07/09/18 08:59 Heparin Sodium (Porcine) (Heparin 5000 units/ml) 5,000 units EVERY 12 HOURS SUBQ 06/08/18 09:00 07/08/18 08:59 06/08/18 21:05 Insulin Aspart (NovoLOG) BEFORE MEALS AND HS SUBQ 06/08/18 06:30 07/08/18 06:29 06/08/18 21:05 Levetiracetam (Keppra) 500 mg Q12HR ORAL 06/08/18 09:00 07/08/18 08:59 06/08/18 21:05 Lorazepam (Ativan 2mg/ml 1ml) 0.5 mg Q4H PRN IV For Anxiety 06/07/18 21:45 06/14/18 21:44 Morphine Sulfate (Morphine Sulfate) 1 mg Q4H PRN IVP For Pain 06/07/18 21:45 06/14/18 21:44 Olanzapine (ZyPREXA) 2.5 mg BID ORAL 06/08/18 18:00 07/08/18 17:59 Ondansetron HCl (Zofran) 4 mg Q6H PRN IVP Nausea & Vomiting 06/07/18 21:45 07/07/18 21:44 Polyethylene Glycol (Miralax) 17 gm HSPRN PRN ORAL Constipation 06/07/18 21:45 07/07/18 21:44 Zolpidem Tartrate (Ambien) 5 mg HSPRN PRN ORAL Insomnia 06/07/18 21:45 06/14/18 21:44 06/08/18 02:40 Sarah Collins NP Jun 09, 2018 08:42
[2018-06-09 09:00] VITALS: BP 117/62
[2018-06-09] MEDS: BusPIRone 10mg Tab ORAL SCH ×2 (09:11→17:04)
[2018-06-09] MEDS: Docusate 100mg cap ORAL SCH ×2 (09:11→17:04)
[2018-06-09] MEDS: OLANZapine 2.5mg tab ORAL SCH ×2 (09:11→17:04)
[2018-06-09] MEDS: Heparin 5000 units/ml inj SUBQ SCH ×2 (09:17→21:42)
[2018-06-09 11:53] VITALS: BP 101/54
[2018-06-09] MEDS: LORazepam Inj 2mg/ml 1ml IV PRN (14:12)
--- NOTE | 2018-06-09 14:31 | Cardiology Report ---
APPROVED REPORT EXAM: Two-dimensional and M-mode echocardiogram with Doppler and color Doppler. INDICATION Hypertension M-Mode DIMENSIONS IVSd1.2 (0.7-1.1cm)Left Atrium (MM)3.2 (1.6-4.0cm) LVDd3.7 (3.5-5.6cm)Aortic Root2.7 (2.0-3.7cm) PWd1.1 (0.7-1.1cm)Aortic Cusp Exc.1.5 (1.5-2.0cm) LVDs2.1 (2.5-4.0cm) PWs1.5 cm Technically difficult and limited study due to poor acoustic windows and patient was agitated. Study quality precludes accurate assessment of regional wall motion. Normal left ventricular chamber size, systolic function and wall motion to extent visualized. Left ventricular ejection fraction estimated to be 55 %. Mild left ventricular hypertrophy. Anterior Echo-free space, may be due to pericardial fat or effusion. All other cardiac chamber sizes are within normal limits. Mild focal aortic valve sclerosis with adequate cusp excursion. Mildly thickened mitral valve leaflets with normal excursion. Mild mitral annulus and aortic root calcification. Pulmonic valve not well visualized. Normal tricuspid valve structure. Subcostal views not obtainable. A color flow and spectral Doppler study was performed and revealed: No aortic insufficiency. No mitral regurgitation. Mitral diastolic velocities suggest mild left ventricular diastolic dysfunction (Grade I).
--- NOTE | 2018-06-09 14:53 | Cardiology Report ---
APPROVED REPORT EKG Measurement Heart [id number] Normal sinus rhythm Right bundle branch block Abnormal ECG
--- NOTE | 2018-06-09 15:33 | Cardiac Electrophysiology PN ---
Assessment/Plan Assessment/Plan 1. Hypertension. Continue lisinopril and p.r.n. clonidine Echo EF 55% 2. Seizure disorder on Keppra. 3. Altered mental status and psychosis, on Zyprexa. 4. Diabetes on insulin. 5. History of CVA with left hemiplegia. Subjective Subjective More alert in NAD. BP better. Coughing with food Objective Last 24 Hour Vital Signs Date Time Temp Pulse Resp B/P (MAP) Pulse Ox O2 Delivery O2 Flow Rate FiO2 06/09/18 11:53 97.4 63 18 101/54 (70) 95 06/09/18 09:00 97.2 67 17 117/62 (80) 97 06/09/18 09:00 Room Air 06/09/18 04:00 97.2 64 16 137/87 (104) 98 06/09/18 00:00 61 16 119/75 (90) 06/08/18 21:00 Room Air 06/08/18 20:00 97.0 68 20 135/71 (92) 96 06/08/18 16:00 97.5 70 18 141/78 (99) 97 Intake and Output 06/08/18 06/09/18 18:59 06:59 Intake Total 520 ml Output Total 3 ml Balance 520 ml -3 ml Intake Oral 520 ml Output Urine Total 3 ml # Voids 5 Laboratory Tests Test 06/09/18 05:40 White Blood Count 5.2 K/UL (4.8-10.8) Red Blood Count 4.03 M/UL (4.70-6.10) L Hemoglobin 12.0 G/DL (14.2-18.0) L Hematocrit 35.7 % (42.0-52.0) L Mean Corpuscular Volume 89 FL (80-99) Mean Corpuscular Hemoglobin 29.8 PG (27.0-31.0) Mean Corpuscular Hemoglobin Concent 33.7 G/DL (32.0-36.0) Red Cell Distribution Width 12.1 % (11.6-14.8) Platelet Count 303 K/UL (150-450) Mean Platelet Volume 6.5 FL (6.5-10.1) Neutrophils (%) (Auto) 38.0 % (45.0-75.0) L Lymphocytes (%) (Auto) 49.6 % (20.0-45.0) H Monocytes (%) (Auto) 9.5 % (1.0-10.0) Eosinophils (%) (Auto) 1.5 % (0.0-3.0) Basophils (%) (Auto) 1.4 % (0.0-2.0) Prothrombin Time 10.9 SEC (9.30-11.50) Prothromb Time International Ratio 1.0 (0.9-1.1) Activated Partial Thromboplast Time 27 SEC (23-33) Sodium Level 141 MMOL/L (136-145) Potassium Level 3.8 MMOL/L (3.5-5.1) Chloride Level 105 MMOL/L (98-107) Carbon Dioxide Level 30 MMOL/L (21-32) Anion Gap 6 mmol/L (5-15) Blood Urea Nitrogen 20 mg/dL (7-18) H Creatinine 0.9 MG/DL (0.55-1.30) Estimat Glomerular Filtration Rate > 60 mL/min (>60) Glucose Level 132 MG/DL (74-106) H Calcium Level 8.9 MG/DL (8.5-10.1) Phosphorus Level 4.0 MG/DL (2.5-4.9) Magnesium Level 1.5 MG/DL (1.8-2.4) L Total Bilirubin 0.3 MG/DL (0.2-1.0) Aspartate Amino Transf (AST/SGOT) 11 U/L (15-37) L Alanine Aminotransferase (ALT/SGPT) 8 U/L (12-78) L Alkaline Phosphatase 49 U/L (46-116) Troponin I 0.001 ng/mL (0.000-0.056) Pro-B-Type Natriuretic Peptide 98 pg/mL (0-125) Total Protein 7.9 G/DL (6.4-8.2) Albumin 3.5 G/DL (3.4-5.0) Globulin 4.4 g/dL Albumin/Globulin Ratio 0.8 (1.0-2.7) L Thyroid Stimulating Hormone (TSH) 2.504 uiU/mL (0.358-3.740) Microbiology Date/Time Source Procedure Growth Status 06/07/18 18:50 Rectum Received Objective HEENT: No JVD or carotid bruit. LUNGS: Clear. CARDIOVASCULAR: Regular S1 and S2 with no gallop or murmur. ABDOMEN: Soft. EXTREMITIES: No pitting edema. Javier Becker MD Jun 09, 2018 15:33
[2018-06-09 15:47] VITALS: BP 130/72
--- NOTE | 2018-06-09 19:36 | Diagnostic Imaging Report ---
EXAM: XR Chest, 1 View CLINICAL HISTORY: COUGH TECHNIQUE: Frontal view of the chest. COMPARISON: 06/07/18 FINDINGS: Lungs: The lungs are grossly clear. Pleural space: No plain film evidence for pneumothorax. Heart: Unremarkable. No cardiomegaly. Mediastinum: Unremarkable. Bones/joints: Unremarkable. IMPRESSION: Unremarkable frontal view of the chest.
[2018-06-09 20:00] VITALS: BP 127/76
[2018-06-10] VITALS: BP 132/68
--- NOTE | 2018-06-10 02:00 | Consultation ---
DATE OF CONSULTATION: 06/09/2018 NOTE: POOR AUDIO. PSYCHOTHERAPY CONSULTATION PROGRESS NOTE CONSULTING PHYSICIAN: Beulah Villavicencio M.D. TREATING ATTENDING PHYSICIAN: Nura Carter D.O. HISTORY OF PRESENT ILLNESS: This patient is a 67-year-old male patient from [facility]. The patient has been very confused and disorganized. The patient has a long-term history of paranoid schizophrenia. The patient is admitted at this time to the hospital for increased confusion, weakness, and hepatic encephalopathy. The patient has been confused, disorganized, and referred for psychotherapeutic services. The patient , the patient is very disoriented, confused, very minimal in his expressions. He is a very poor historian and denies any feelings of helplessness and hopelessness and depression. He had a very difficult time recalling information such as his birthday, living prior to this hospitalization, pending. The patient at this time has no logical plan for his own self-care. He is disheveled. The patient was eating his meal by himself today. He is cooperative . PAST MEDICAL HISTORY: Includes a history of hypertension, COPD, seizures, diabetes, CVA. ALLERGIES: The patient has no known drug allergies. SUBSTANCE ABUSE HISTORY: As noted, there is no indication of alcohol use, illicit substance use, or smoking cigarettes. PSYCHIATRIC HISTORY: The patient has history of paranoid schizophrenia and treated with psychotropic medications in the past. SOCIAL HISTORY: The patient is a 67-year-old male patient from [facility]. Financially sustained through [facility]. MENTAL STATUS EXAMINATION: The patient is alert and oriented to person. Mood is dysphoric. Affect is blunted. Thought process is disorganized. Thought content, he has poor attention and concentration. Poor insight, judgment, and impulse control. ASSESSMENT AND PLAN: 1. Paranoid schizophrenia. 2. Hypertension, COPD, seizures, diabetes, and CVA. 3. Psychosocial stressors, moderate. This clinician assessed the patient. Provided the patient with supportive psychotherapy, which is any current emotional hospital setting. At this time, the patient . The patient is confused and oriented only to person, place, time, and situation. Encouraging the patient to participate in treatment milieu. hospitalization and current status. Continue with behavioral management. This clinician has reviewed the patient's chart and discussed the treatment with treatment team. provided 35 minutes. Beulah Villavicencio PsyD. DR: DON JOB#: [id number] CC:
[2018-06-10 04:00] VITALS: BP 121/72
[2018-06-10] MEDS: NovoLOG Insulin Flexpen SUBQ SCH ×4 (06:29→20:49)
[2018-06-10 07:19] LABS: BASOPHILS % (AUTO) 1.2 % (0.0-2.0); EOSINOPHILS % (AUTO) 1.8 % (0.0-3.0); HEMATOCRIT 36.3 % (42.0-52.0); HEMOGLOBIN 12.1 G/DL (14.2-18.0); LYMPHOCYTES % (AUTO) 43.9 % (20.0-45.0); MEAN CORPUSCULAR VOLUME 90 FL (80-99); MONOCYTES % (AUTO) 10.2 % (1.0-10.0); NEUTROPHILS % (AUTO) 42.9 % (45.0-75.0); PLATELET COUNT 306 K/UL (150-450); RED BLOOD COUNT 4.04 M/UL (4.70-6.10); RED CELL DISTRIBUTION WIDTH 11.9 % (11.6-14.8); WHITE BLOOD COUNT 5.2 K/UL (4.8-10.8)
[2018-06-10 07:40] LABS: ANION GAP 10 mmol/L (5-15); BLOOD UREA NITROGEN 19 mg/dL (7-18); CARBON DIOXIDE 29 MMOL/L (21-32); CHLORIDE 105 MMOL/L (98-107); CREATININE 0.9 MG/DL (0.55-1.30); POTASSIUM 4.1 MMOL/L (3.5-5.1); SODIUM 143 MMOL/L (136-145)
[2018-06-10 08:00] VITALS: BP 143/74
[2018-06-10] MEDS: Docusate 100mg cap ORAL SCH ×2 (08:01→17:03)
[2018-06-10] MEDS: BusPIRone 10mg Tab ORAL SCH ×2 (08:02→17:03)
[2018-06-10] MEDS: Heparin 5000 units/ml inj SUBQ SCH ×2 (08:03→20:49)
[2018-06-10] MEDS: OLANZapine 2.5mg tab ORAL SCH ×2 (08:03→17:03)
[2018-06-10 08:11] LABS: % IRON SATURATION 34 % (15-50); IRON 104 ug/dL (50-175); TOTAL IRON BINDING CAPACITY 309 ug/dL (250-450)
--- NOTE | 2018-06-10 08:11 | General Progress Note ---
Assessment/Plan Problem List: (1) Acute encephalopathy ICD Codes: G93.40 - Encephalopathy, unspecified SNOMED: 07461379, 153814341 (2) COPD (chronic obstructive pulmonary disease) ICD Codes: J44.9 - Chronic obstructive pulmonary disease, unspecified SNOMED: 16493955 (3) Anemia ICD Codes: D64.9 - Anemia, unspecified SNOMED: 842361076 (4) DM (diabetes mellitus) ICD Codes: E11.9 - Diabetes mellitus SNOMED: 49062683 (5) Acute CVA (cerebrovascular accident) ICD Codes: I63.9 - Acute CVA (cerebrovascular accident) SNOMED: 985805679 (6) Seizure disorder ICD Codes: G40.909 - Seizure disorder SNOMED: 037256976 (7) HTN (hypertension) ICD Codes: I10 - Hypertension SNOMED: 87482369 Status: stable, progressing Assessment/Plan ot pt diet bp bs seizure control dc plan if clear Subjective Constitutional: Reports: weakness Allergies: Coded Allergies: No Known Allergies (Unverified , 01/05/13) All Systems: reviewed and negative except above Subjective calm in bed eating Objective Last 24 Hour Vital Signs Date Time Temp Pulse Resp B/P (MAP) Pulse Ox O2 Delivery O2 Flow Rate FiO2 06/10/18 04:00 97.5 56 19 121/72 (88) 97 06/10/18 00:00 97.5 66 19 132/68 (89) 96 06/09/18 21:00 Room Air 06/09/18 20:00 96.8 72 17 127/76 (93) 93 06/09/18 15:47 97.0 66 18 130/72 (91) 96 06/09/18 11:53 97.4 63 18 101/54 (70) 95 06/09/18 09:00 97.2 67 17 117/62 (80) 97 06/09/18 09:00 Room Air Intake and Output 06/09/18 06/10/18 19:00 07:00 Intake Total 920 ml Balance 920 ml Intake Oral 720 ml IV Total 200 ml # Voids 4 3 # Bowel Movements 1 Laboratory Tests 06/10/18 06:05: White Blood Count 5.2, Red Blood Count 4.04L, Hemoglobin 12.1L, Hematocrit 36.3L , Mean Corpuscular Volume 90, Mean Corpuscular Hemoglobin 29.8, Mean Corpuscular Hemoglobin Concent 33.2, Red Cell Distribution Width 11.9, Platelet Count 306, Mean Platelet Volume 6.9, Neutrophils (%) (Auto) 42.9L, Lymphocytes ( %) (Auto) 43.9, Monocytes (%) (Auto) 10.2H, Eosinophils (%) (Auto) 1.8, Basophils (%) (Auto) 1.2, Sodium Level 143, Potassium Level 4.1, Chloride Level 105, Carbon Dioxide Level 29, Anion Gap 10, Blood Urea Nitrogen 19H, Creatinine 0.9, Estimat Glomerular Filtration Rate > 60, Glucose Level 157H, Calcium Level 9.0, Magnesium Level 1.8, Iron Level [Pending], Unsaturated Iron Binding [ Pending], Carcinoembryonic Antigen [Pending], Vitamin B12 Level [Pending], Folate [Pending], Free Thyroxine 0.91 Height (Feet): 5 Height (Inches): 7.00 Weight (Pounds): 118 General Appearance: lethargic EENT: normal ENT inspection Neck: normal alignment Cardiovascular: normal peripheral pulses, normal rate, regular rhythm Respiratory/Chest: chest wall non-tender, lungs clear, normal breath sounds Abdomen: normal bowel sounds, non tender, soft Extremities: normal range of motion Edema: no edema noted Arm (L), no edema noted Arm (R), no edema noted Leg (L), no edema noted Leg (R), no edema noted Pedal (L), no edema noted Pedal (R), no edema noted Generalized Neurologic: motor weakness Skin: normal pigmentation, warm/dry Nura Carter DO Jun 10, 2018 08:11
--- NOTE | 2018-06-10 08:30 | General Progress Note ---
Assessment/Plan Problem List: (1) Acute encephalopathy ICD Codes: G93.40 - Encephalopathy, unspecified SNOMED: 38278510, 651200624 (2) Anemia ICD Codes: D64.9 - Anemia, unspecified SNOMED: 957636945 (3) Seizure disorder ICD Codes: G40.909 - Seizure disorder SNOMED: 570853234 (4) HTN (hypertension) ICD Codes: I10 - Hypertension SNOMED: 04560888 (5) DM (diabetes mellitus) ICD Codes: E11.9 - Diabetes mellitus SNOMED: 14112976 (6) Arterial ischemic stroke, MCA (middle cerebral artery), right, chronic ICD Codes: Z86.73 - Arterial ischemic stroke, MCA (middle cerebral artery), right, chronic SNOMED: 536885854 Assessment/Plan anemia work up caloric count fu labs dvt prophylaxis Subjective Allergies: Coded Allergies: No Known Allergies (Unverified , 01/05/13) Objective Last 24 Hour Vital Signs Date Time Temp Pulse Resp B/P (MAP) Pulse Ox O2 Delivery O2 Flow Rate FiO2 06/10/18 08:00 97.8 65 20 143/74 (97) 98 06/10/18 04:00 97.5 56 19 121/72 (88) 97 06/10/18 00:00 97.5 66 19 132/68 (89) 96 06/09/18 21:00 Room Air 06/09/18 20:00 96.8 72 17 127/76 (93) 93 06/09/18 15:47 97.0 66 18 130/72 (91) 96 06/09/18 11:53 97.4 63 18 101/54 (70) 95 06/09/18 09:00 97.2 67 17 117/62 (80) 97 06/09/18 09:00 Room Air Intake and Output 06/09/18 06/10/18 19:00 07:00 Intake Total 920 ml Balance 920 ml Intake Oral 720 ml IV Total 200 ml # Voids 4 3 # Bowel Movements 1 Laboratory Tests 06/10/18 06:05: White Blood Count 5.2, Red Blood Count 4.04L, Hemoglobin 12.1L, Hematocrit 36.3L , Mean Corpuscular Volume 90, Mean Corpuscular Hemoglobin 29.8, Mean Corpuscular Hemoglobin Concent 33.2, Red Cell Distribution Width 11.9, Platelet Count 306, Mean Platelet Volume 6.9, Neutrophils (%) (Auto) 42.9L, Lymphocytes ( %) (Auto) 43.9, Monocytes (%) (Auto) 10.2H, Eosinophils (%) (Auto) 1.8, Basophils (%) (Auto) 1.2, Sodium Level 143, Potassium Level 4.1, Chloride Level 105, Carbon Dioxide Level 29, Anion Gap 10, Blood Urea Nitrogen 19H, Creatinine 0.9, Estimat Glomerular Filtration Rate > 60, Glucose Level 157H, Calcium Level 9.0, Magnesium Level 1.8, Iron Level 104, Total Iron Binding Capacity 309, Percent Iron Saturation 34, Unsaturated Iron Binding 205, Carcinoembryonic Antigen [Pending], Vitamin B12 Level [Pending], Folate 5.6L, Free Thyroxine 0.91 Height (Feet): 5 Height (Inches): 7.00 Weight (Pounds): 118 General Appearance: no apparent distress EENT: normal ENT inspection Neck: supple Cardiovascular: normal rate Respiratory/Chest: decreased breath sounds Abdomen: normal bowel sounds, non tender, soft Extremities: non-tender James Stephens MD Jun 10, 2018 08:30
--- NOTE | 2018-06-10 09:02 | Pulmonology Progress Note ---
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 Urine tox negative, serum alcohol negative ,ammonia level within range possible seizure? consider neuro eval no evidence of infection to explain AMS chest x-ray stable O2 prn to keep sat above 92 % BP management with RAGHAV and Clonidine prn ECHO with pEF 55% , mild LVH, no evidence of wall motion abnormality to the extent visualized cardio follows lipid panel with elevated TC and LDL, start Lipitor, continue low cholesterol low fat diabetic cardiac diet swallow eval Mg stable after replacement seizure precautions, continue Keppra BS management with SSI dietary recs regarding severe malnutrition implemented in POC monitor H&H with goal to keep hemoglobin above 7 , GI follows PT/OT anemia workup with stable iron, normocytic, likely of chronic disease also noted folate deficiency, started on folic acid supplement continue Zyprexa consider psych eval -per PMD discretion case discussed and evaluated by supervising physician Subjective Allergies: Coded Allergies: No Known Allergies (Unverified , 01/05/13) Subjective no signs of resp distress Mg-1.5 Objective Last 24 Hour Vital Signs Date Time Temp Pulse Resp B/P (MAP) Pulse Ox O2 Delivery O2 Flow Rate FiO2 06/10/18 08:00 97.8 65 20 143/74 (97) 98 06/10/18 04:00 97.5 56 19 121/72 (88) 97 06/10/18 00:00 97.5 66 19 132/68 (89) 96 06/09/18 21:00 Room Air 06/09/18 20:00 96.8 72 17 127/76 (93) 93 06/09/18 15:47 97.0 66 18 130/72 (91) 96 06/09/18 11:53 97.4 63 18 101/54 (70) 95 Intake and Output 06/09/18 06/10/18 19:00 07:00 Intake Total 920 ml Balance 920 ml Intake Oral 720 ml IV Total 200 ml # Voids 4 3 # Bowel Movements 1 Objective General Appearance: no acute distress, bedridden, sleeping but easily arousable, not willing to be engaged in eye contact or conversation HEENT: normocephalic, atraumatic Respiratory/Chest: lungs clear with moderate air exchange Cardiovascular: normal rate Abdomen: normal bowel sounds, soft, non tender, non distended Extremities: no edema, L hemiparesis Neurologic/Psychiatric: abnormal gait - bedridden , not verbally responsive, left hemiparesis Musculoskeletal: atrophy of BLE Microbiology Date/Time Source Procedure Growth Status 06/07/18 18:50 Rectum - Final NO CARBAPENEM-RESISTANT ENTEROBACTERI... Complete 06/07/18 18:50 Rectum VRE Culture - Final NO VANCOMYCIN RESISTANT ENTEROCOCCUS ... Complete Laboratory Tests 06/10/18 06:05: White Blood Count 5.2, Red Blood Count 4.04L, Hemoglobin 12.1L, Hematocrit 36.3L , Mean Corpuscular Volume 90, Mean Corpuscular Hemoglobin 29.8, Mean Corpuscular Hemoglobin Concent 33.2, Red Cell Distribution Width 11.9, Platelet Count 306, Mean Platelet Volume 6.9, Neutrophils (%) (Auto) 42.9L, Lymphocytes ( %) (Auto) 43.9, Monocytes (%) (Auto) 10.2H, Eosinophils (%) (Auto) 1.8, Basophils (%) (Auto) 1.2, Sodium Level 143, Potassium Level 4.1, Chloride Level 105, Carbon Dioxide Level 29, Anion Gap 10, Blood Urea Nitrogen 19H, Creatinine 0.9, Estimat Glomerular Filtration Rate > 60, Glucose Level 157H, Calcium Level 9.0, Magnesium Level 1.8, Iron Level 104, Total Iron Binding Capacity 309, Percent Iron Saturation 34, Unsaturated Iron Binding 205, Carcinoembryonic Antigen [Pending], Vitamin B12 Level 639, Folate 5.6L, Free Thyroxine 0.91 Current Medications Medications (Trade) Dose Ordered Sig/Kun Route PRN Reason Start Time Stop Time Status Last Admin Dose Admin Acetaminophen (Tylenol) 650 mg Q4H PRN ORAL fever 06/07/18 21:45 07/07/18 21:44 Al Hydroxide/Mg Hydroxide (Mylanta II) 30 ml Q6H PRN ORAL dyspepsia 06/07/18 21:45 07/07/18 21:44 Atorvastatin Calcium (Lipitor) 10 mg BEDTIME ORAL 06/09/18 21:00 07/09/18 20:59 06/09/18 21:40 Buspirone HCl (Buspar) 5 mg BID ORAL 06/08/18 18:00 07/08/18 17:59 06/10/18 08:02 Dextrose (Dextrose 50%) 25 ml Q30M PRN IV Hypoglycemia 06/07/18 21:45 07/07/18 21:44 Dextrose (Dextrose 50%) 50 ml Q30M PRN IV Hypoglycemia 06/07/18 21:45 07/07/18 21:44 Docusate Sodium (Colace) 100 mg TWICE A DAY ORAL 06/09/18 09:00 07/09/18 08:59 06/10/18 08:01 Folic Acid (Folate) 1 mg DAILY ORAL 06/10/18 09:00 07/10/18 08:59 Heparin Sodium (Porcine) (Heparin 5000 units/ml) 5,000 units EVERY 12 HOURS SUBQ 06/08/18 09:00 07/08/18 08:59 06/10/18 08:03 Insulin Aspart (NovoLOG) BEFORE MEALS AND HS SUBQ 06/08/18 06:30 07/08/18 06:29 06/09/18 22:01 Levetiracetam (Keppra) 500 mg Q12HR ORAL 06/08/18 09:00 07/08/18 08:59 06/10/18 08:01 Lorazepam (Ativan 2mg/ml 1ml) 0.5 mg Q4H PRN IV For Anxiety 06/07/18 21:45 06/14/18 21:44 06/09/18 14:12 Morphine Sulfate (Morphine Sulfate) 1 mg Q4H PRN IVP For Pain 06/07/18 21:45 06/14/18 21:44 Olanzapine (ZyPREXA) 2.5 mg BID ORAL 06/08/18 18:00 07/08/18 17:59 06/10/18 08:03 Ondansetron HCl (Zofran) 4 mg Q6H PRN IVP Nausea & Vomiting 06/07/18 21:45 07/07/18 21:44 Polyethylene Glycol (Miralax) 17 gm HSPRN PRN ORAL Constipation 06/07/18 21:45 07/07/18 21:44 Zolpidem Tartrate (Ambien) 5 mg HSPRN PRN ORAL Insomnia 06/07/18 21:45 06/14/18 21:44 06/08/18 02:40 Sarah Collins NP Jun 10, 2018 09:02
[2018-06-10 11:24] VITALS: BP 104/58
[2018-06-10] MEDS: LORazepam Inj 2mg/ml 1ml IV PRN ×2 (15:28→22:41)
[2018-06-10 16:02] VITALS: BP 130/67
[2018-06-10 20:00] VITALS: BP 150/76
[2018-06-11] VITALS: BP 143/82
[2018-06-11 04:00] VITALS: BP 131/60
[2018-06-11] MEDS: NovoLOG Insulin Flexpen SUBQ SCH ×4 (06:02→20:56)
[2018-06-11 07:34] LABS: BASOPHILS % (AUTO) 1.3 % (0.0-2.0); EOSINOPHILS % (AUTO) 1.5 % (0.0-3.0); HEMATOCRIT 35.7 % (42.0-52.0); HEMOGLOBIN 12.1 G/DL (14.2-18.0); LYMPHOCYTES % (AUTO) 46.4 % (20.0-45.0); MEAN CORPUSCULAR VOLUME 89 FL (80-99); MONOCYTES % (AUTO) 8.1 % (1.0-10.0); NEUTROPHILS % (AUTO) 42.7 % (45.0-75.0); PLATELET COUNT 280 K/UL (150-450); RED CELL DISTRIBUTION WIDTH 11.8 % (11.6-14.8); WHITE BLOOD COUNT 6.4 K/UL (4.8-10.8)
[2018-06-11 07:46] LABS: ANION GAP 10 mmol/L (5-15); BLOOD UREA NITROGEN 17 mg/dL (7-18); CALCIUM 8.9 MG/DL (8.5-10.1); CARBON DIOXIDE 26 MMOL/L (21-32); CHLORIDE 106 MMOL/L (98-107); CREATININE 0.8 MG/DL (0.55-1.30); POTASSIUM 3.9 MMOL/L (3.5-5.1); SODIUM 142 MMOL/L (136-145)
[2018-06-11 08:00] VITALS: BP 116/71
[2018-06-11] MEDS: Docusate 100mg cap ORAL SCH ×2 (08:13→18:21)
[2018-06-11] MEDS: Heparin 5000 units/ml inj SUBQ SCH ×2 (08:14→20:54)
[2018-06-11] MEDS: BusPIRone 10mg Tab ORAL SCH ×2 (08:14→18:21)
--- NOTE | 2018-06-11 11:02 | GI Progress Note ---
Assessment/Plan Problems: (1) Anemia ICD Codes: D64.9 - Anemia, unspecified SNOMED: 545021302 (2) Dysphagia ICD Codes: R13.10 - Dysphagia, unspecified SNOMED: 48061450, 977717606 (3) Uncontrolled seizures ICD Codes: R56.9 - Unspecified convulsions SNOMED: 42938306 (4) DM (diabetes mellitus) ICD Codes: E11.9 - Diabetes mellitus SNOMED: 62690084 Status: stable Status Narrative Discussed with Dr. Stephens. Assessment/Plan anemia work up >> folate deficiency OB stool pending caloric count pending ADA diet, tolerating fu labs dvt prophylaxis outpatient GI procedures The patient was seen and examined at bedside and all new and available data was reviewed in the patients chart. I agree with the above findings, impression and plan. (Patient seen earlier today. Signature stamp does not reflect patient encounter time.). - James Stephens MD Subjective Gastrointestinal/Abdominal: Reports: no symptoms Objective Last 24 Hour Vital Signs Date Time Temp Pulse Resp B/P (MAP) Pulse Ox O2 Delivery O2 Flow Rate FiO2 06/11/18 08:00 97.7 72 20 116/71 (86) 99 06/11/18 04:00 96.6 67 17 131/60 (83) 100 06/11/18 00:00 97.7 63 19 143/82 (102) 98 06/10/18 21:00 Room Air 06/10/18 20:00 97.5 76 16 150/76 (100) 97 06/10/18 16:02 97.2 67 20 130/67 (88) 97 06/10/18 11:24 97.7 59 16 104/58 (73) 95 Intake and Output 06/10/18 06/11/18 19:00 07:00 Intake Total 600 ml Balance 600 ml Intake Oral 600 ml # Voids 2 2 Laboratory Tests Test 06/11/18 06:10 White Blood Count 6.4 K/UL (4.8-10.8) Red Blood Count 4.00 M/UL (4.70-6.10) L Hemoglobin 12.1 G/DL (14.2-18.0) L Hematocrit 35.7 % (42.0-52.0) L Mean Corpuscular Volume 89 FL (80-99) Mean Corpuscular Hemoglobin 30.2 PG (27.0-31.0) Mean Corpuscular Hemoglobin Concent 33.8 G/DL (32.0-36.0) Red Cell Distribution Width 11.8 % (11.6-14.8) Platelet Count 280 K/UL (150-450) Mean Platelet Volume 6.6 FL (6.5-10.1) Neutrophils (%) (Auto) 42.7 % (45.0-75.0) L Lymphocytes (%) (Auto) 46.4 % (20.0-45.0) H Monocytes (%) (Auto) 8.1 % (1.0-10.0) Eosinophils (%) (Auto) 1.5 % (0.0-3.0) Basophils (%) (Auto) 1.3 % (0.0-2.0) Sodium Level 142 MMOL/L (136-145) Potassium Level 3.9 MMOL/L (3.5-5.1) Chloride Level 106 MMOL/L (98-107) Carbon Dioxide Level 26 MMOL/L (21-32) Anion Gap 10 mmol/L (5-15) Blood Urea Nitrogen 17 mg/dL (7-18) Creatinine 0.8 MG/DL (0.55-1.30) Estimat Glomerular Filtration Rate > 60 mL/min (>60) Glucose Level 147 MG/DL (74-106) H Calcium Level 8.9 MG/DL (8.5-10.1) Height (Feet): 5 Height (Inches): 7.00 Weight (Pounds): 118 General Appearance: WD/WN, no apparent distress, alert Cardiovascular: normal rate Respiratory/Chest: normal breath sounds, no respiratory distress Abdominal Exam: normal bowel sounds, non tender, soft Extremities: normal range of motion, non-tender Orville Muñiz NP Jun 11, 2018 11:02
--- NOTE | 2018-06-11 11:29 | Cardiac Electrophysiology PN ---
Assessment/Plan Assessment/Plan 1. Hypertension. Continue lisinopril and p.r.n. clonidine Echo EF 55% 2. Seizure disorder on Keppra. 3. Altered mental status and psychosis, on Zyprexa. 4. Diabetes on insulin. 5. History of CVA with left hemiplegia. KUSHAL RN Subjective Subjective More alert in NAD. BP better. Able to feed himself. No events overnight Objective Last 24 Hour Vital Signs Date Time Temp Pulse Resp B/P (MAP) Pulse Ox O2 Delivery O2 Flow Rate FiO2 06/11/18 08:00 97.7 72 20 116/71 (86) 99 06/11/18 04:00 96.6 67 17 131/60 (83) 100 06/11/18 00:00 97.7 63 19 143/82 (102) 98 06/10/18 21:00 Room Air 06/10/18 20:00 97.5 76 16 150/76 (100) 97 06/10/18 16:02 97.2 67 20 130/67 (88) 97 Intake and Output 06/10/18 06/11/18 19:00 07:00 Intake Total 600 ml Balance 600 ml Intake Oral 600 ml # Voids 2 2 Laboratory Tests Test 06/11/18 06:10 White Blood Count 6.4 K/UL (4.8-10.8) Red Blood Count 4.00 M/UL (4.70-6.10) L Hemoglobin 12.1 G/DL (14.2-18.0) L Hematocrit 35.7 % (42.0-52.0) L Mean Corpuscular Volume 89 FL (80-99) Mean Corpuscular Hemoglobin 30.2 PG (27.0-31.0) Mean Corpuscular Hemoglobin Concent 33.8 G/DL (32.0-36.0) Red Cell Distribution Width 11.8 % (11.6-14.8) Platelet Count 280 K/UL (150-450) Mean Platelet Volume 6.6 FL (6.5-10.1) Neutrophils (%) (Auto) 42.7 % (45.0-75.0) L Lymphocytes (%) (Auto) 46.4 % (20.0-45.0) H Monocytes (%) (Auto) 8.1 % (1.0-10.0) Eosinophils (%) (Auto) 1.5 % (0.0-3.0) Basophils (%) (Auto) 1.3 % (0.0-2.0) Sodium Level 142 MMOL/L (136-145) Potassium Level 3.9 MMOL/L (3.5-5.1) Chloride Level 106 MMOL/L (98-107) Carbon Dioxide Level 26 MMOL/L (21-32) Anion Gap 10 mmol/L (5-15) Blood Urea Nitrogen 17 mg/dL (7-18) Creatinine 0.8 MG/DL (0.55-1.30) Estimat Glomerular Filtration Rate > 60 mL/min (>60) Glucose Level 147 MG/DL (74-106) H Calcium Level 8.9 MG/DL (8.5-10.1) Objective HEENT: No JVD or carotid bruit. LUNGS: Clear. CARDIOVASCULAR: Regular S1 and S2 with no gallop or murmur. ABDOMEN: Soft. EXTREMITIES: No pitting edema. Javier Becker MD Jun 11, 2018 11:29
[2018-06-11 12:00] VITALS: BP 140/87
--- NOTE | 2018-06-11 13:01 | General Progress Note ---
Assessment/Plan Problem List: (1) Acute encephalopathy ICD Codes: G93.40 - Encephalopathy, unspecified SNOMED: 71482376, 333015500 (2) COPD (chronic obstructive pulmonary disease) ICD Codes: J44.9 - Chronic obstructive pulmonary disease, unspecified SNOMED: 80520067 (3) Anemia ICD Codes: D64.9 - Anemia, unspecified SNOMED: 949883816 (4) DM (diabetes mellitus) ICD Codes: E11.9 - Diabetes mellitus SNOMED: 98941588 (5) Acute CVA (cerebrovascular accident) ICD Codes: I63.9 - Acute CVA (cerebrovascular accident) SNOMED: 287182172 (6) Seizure disorder ICD Codes: G40.909 - Seizure disorder SNOMED: 593433155 (7) HTN (hypertension) ICD Codes: I10 - Hypertension SNOMED: 14518019 Status: stable, progressing Assessment/Plan ot pt diet bp bs seizure control dc if clear Subjective Constitutional: Reports: weakness Allergies: Coded Allergies: No Known Allergies (Unverified , 01/05/13) All Systems: reviewed and negative except above Subjective calm in bed eating Objective Last 24 Hour Vital Signs Date Time Temp Pulse Resp B/P (MAP) Pulse Ox O2 Delivery O2 Flow Rate FiO2 06/11/18 12:00 97.6 67 20 140/87 (104) 95 06/11/18 08:00 97.7 72 20 116/71 (86) 99 06/11/18 04:00 96.6 67 17 131/60 (83) 100 06/11/18 00:00 97.7 63 19 143/82 (102) 98 06/10/18 21:00 Room Air 06/10/18 20:00 97.5 76 16 150/76 (100) 97 06/10/18 16:02 97.2 67 20 130/67 (88) 97 Intake and Output 06/10/18 06/11/18 19:00 07:00 Intake Total 600 ml Balance 600 ml Intake Oral 600 ml # Voids 2 2 Laboratory Tests 06/11/18 06:10: White Blood Count 6.4, Red Blood Count 4.00L, Hemoglobin 12.1L, Hematocrit 35.7L , Mean Corpuscular Volume 89, Mean Corpuscular Hemoglobin 30.2, Mean Corpuscular Hemoglobin Concent 33.8, Red Cell Distribution Width 11.8, Platelet Count 280, Mean Platelet Volume 6.6, Neutrophils (%) (Auto) 42.7L, Lymphocytes ( %) (Auto) 46.4H, Monocytes (%) (Auto) 8.1, Eosinophils (%) (Auto) 1.5, Basophils (%) (Auto) 1.3, Sodium Level 142, Potassium Level 3.9, Chloride Level 106, Carbon Dioxide Level 26, Anion Gap 10, Blood Urea Nitrogen 17, Creatinine 0.8, Estimat Glomerular Filtration Rate > 60, Glucose Level 147H, Calcium Level 8.9 Height (Feet): 5 Height (Inches): 7.00 Weight (Pounds): 118 General Appearance: lethargic EENT: normal ENT inspection Neck: normal alignment Cardiovascular: normal peripheral pulses, normal rate, regular rhythm Respiratory/Chest: chest wall non-tender, lungs clear, normal breath sounds Abdomen: normal bowel sounds, non tender, soft Extremities: normal inspection Edema: no edema noted Arm (L), no edema noted Arm (R), no edema noted Leg (L), no edema noted Leg (R), no edema noted Pedal (L), no edema noted Pedal (R), no edema noted Generalized Neurologic: motor weakness Skin: normal pigmentation, warm/dry Nura Carter DO Jun 11, 2018 13:01
--- NOTE | 2018-06-11 14:45 | Pulmonology Progress Note ---
Assessment/Plan Problems: (1) Acute encephalopathy (2) COPD (chronic obstructive pulmonary disease) (3) Seizure disorder (4) HTN (hypertension) (5) DM (diabetes mellitus) Assessment/Plan improving respiratory treatment sliding scale diabetic diet monitor BP no more seizures dc planning Subjective ROS Limited/Unobtainable: No Constitutional: Reports: no symptoms HEENT: Repors: no symptoms Respiratory: Reports: no symptoms Allergies: Coded Allergies: No Known Allergies (Unverified , 01/05/13) Objective Last 24 Hour Vital Signs Date Time Temp Pulse Resp B/P (MAP) Pulse Ox O2 Delivery O2 Flow Rate FiO2 06/11/18 12:00 97.6 67 20 140/87 (104) 95 06/11/18 09:00 Room Air 06/11/18 08:00 97.7 72 20 116/71 (86) 99 06/11/18 04:00 96.6 67 17 131/60 (83) 100 06/11/18 00:00 97.7 63 19 143/82 (102) 98 06/10/18 21:00 Room Air 06/10/18 20:00 97.5 76 16 150/76 (100) 97 06/10/18 16:02 97.2 67 20 130/67 (88) 97 Intake and Output 06/10/18 06/11/18 19:00 07:00 Intake Total 600 ml Balance 600 ml Intake Oral 600 ml # Voids 2 2 Objective General Appearance: WD/WN HEENT: normocephalic, atraumatic Respiratory/Chest: chest wall non-tender, lungs clear Breasts: no masses Cardiovascular: normal peripheral pulses Abdomen: normal bowel sounds, soft, non tender, no organomegaly 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 Lymphatic: no neck adenopathy Laboratory Tests 06/11/18 06:10: White Blood Count 6.4, Red Blood Count 4.00L, Hemoglobin 12.1L, Hematocrit 35.7L , Mean Corpuscular Volume 89, Mean Corpuscular Hemoglobin 30.2, Mean Corpuscular Hemoglobin Concent 33.8, Red Cell Distribution Width 11.8, Platelet Count 280, Mean Platelet Volume 6.6, Neutrophils (%) (Auto) 42.7L, Lymphocytes ( %) (Auto) 46.4H, Monocytes (%) (Auto) 8.1, Eosinophils (%) (Auto) 1.5, Basophils (%) (Auto) 1.3, Sodium Level 142, Potassium Level 3.9, Chloride Level 106, Carbon Dioxide Level 26, Anion Gap 10, Blood Urea Nitrogen 17, Creatinine 0.8, Estimat Glomerular Filtration Rate > 60, Glucose Level 147H, Calcium Level 8.9 Current Medications Medications (Trade) Dose Ordered Sig/Kun Route PRN Reason Start Time Stop Time Status Last Admin Dose Admin Acetaminophen (Tylenol) 650 mg Q4H PRN ORAL fever 06/07/18 21:45 07/07/18 21:44 Al Hydroxide/Mg Hydroxide (Mylanta II) 30 ml Q6H PRN ORAL dyspepsia 06/07/18 21:45 07/07/18 21:44 Atorvastatin Calcium (Lipitor) 10 mg BEDTIME ORAL 06/09/18 21:00 07/09/18 20:59 06/10/18 20:48 Buspirone HCl (Buspar) 5 mg BID ORAL 06/08/18 18:00 07/08/18 17:59 06/11/18 08:14 Dextrose (Dextrose 50%) 25 ml Q30M PRN IV Hypoglycemia 06/07/18 21:45 07/07/18 21:44 Dextrose (Dextrose 50%) 50 ml Q30M PRN IV Hypoglycemia 06/07/18 21:45 07/07/18 21:44 Docusate Sodium (Colace) 100 mg TWICE A DAY ORAL 06/09/18 09:00 07/09/18 08:59 06/11/18 08:13 Folic Acid (Folate) 1 mg DAILY ORAL 06/10/18 09:00 07/10/18 08:59 06/11/18 08:14 Folic Acid (Folate) 1 mg DAILY ORAL 06/11/18 09:00 07/11/18 08:59 Heparin Sodium (Porcine) (Heparin 5000 units/ml) 5,000 units EVERY 12 HOURS SUBQ 06/08/18 09:00 07/08/18 08:59 06/11/18 08:14 Insulin Aspart (NovoLOG) BEFORE MEALS AND HS SUBQ 06/08/18 06:30 07/08/18 06:29 06/11/18 12:14 Levetiracetam (Keppra) 500 mg Q12HR ORAL 06/08/18 09:00 07/08/18 08:59 06/11/18 08:13 Lorazepam (Ativan 2mg/ml 1ml) 0.5 mg Q4H PRN IV For Anxiety 06/07/18 21:45 06/14/18 21:44 06/10/18 22:41 Morphine Sulfate (Morphine Sulfate) 1 mg Q4H PRN IVP For Pain 06/07/18 21:45 06/14/18 21:44 Olanzapine (ZyPREXA) 5 mg BID ORAL 06/11/18 09:00 07/08/18 17:59 06/11/18 08:14 Ondansetron HCl (Zofran) 4 mg Q6H PRN IVP Nausea & Vomiting 06/07/18 21:45 07/07/18 21:44 Polyethylene Glycol (Miralax) 17 gm HSPRN PRN ORAL Constipation 06/07/18 21:45 07/07/18 21:44 06/10/18 17:03 Valproic Acid (Depakene) 500 mg TWICE A DAY ORAL 06/11/18 09:00 07/11/18 08:59 06/11/18 08:13 Zolpidem Tartrate (Ambien) 5 mg HSPRN PRN ORAL Insomnia 06/07/18 21:45 06/14/18 21:44 06/08/18 02:40 Mey Latham MD Jun 11, 2018 14:45
[2018-06-11 16:00] VITALS: BP 138/72
--- NOTE | 2018-06-11 16:00 | Consultation ---
DATE OF CONSULTATION: 06/11/2018 CONSULTING PHYSICIAN: Berto Umana M.D. HISTORY OF PRESENT ILLNESS: The patient is a 67-year-old with hypertension, confused, disorganized . MEDICAL HISTORY: Hypertension. ALLERGIES: No known drug allergies. PSYCHOTROPIC MEDICATIONS: On admission, mg twice a day. SOCIAL HISTORY: He lives [place]. Financially supported by [employer] and Medicare. PSYCHIATRIC HISTORY: Paranoid schizophrenia. MENTAL STATUS EXAMINATION: The patient is a 67-year-old male. Appearance is disheveled. Attitude, irritable and agitated. Affect guarded and restricted. Intellect poor. Mood depressed and anxious. Motor activity, psychomotor agitation. Attention span is poor. Orientation x2. Speech is pressured. Thought process, disorganized and illogical. Insight and judgment are poor. DIAGNOSES: 1. Paranoid schizophrenia, bipolar. 2. Hypertension. 3. Psychosocial stressors, financial. PLAN: Plan is to treat him with Depakote 500 mg twice a day. Provided 20 minutes of cognitive behavioral therapy to help identify his automatic negative thoughts and to help with negative thoughts to more positive thoughts to reduce depression, anxiety, and suicidal thoughts. . Berto Umana M.D. DR: VJ JOB#: [id number] CC:
[2018-06-11 20:00] VITALS: BP 156/92
[2018-06-12] VITALS: BP 148/69
[2018-06-12] MEDS: LORazepam Inj 2mg/ml 1ml IV PRN (02:19)
[2018-06-12 04:00] VITALS: BP 137/67
[2018-06-12] MEDS: NovoLOG Insulin Flexpen SUBQ SCH ×4 (06:25→20:43)
[2018-06-12 06:48] LABS: ANION GAP 8 mmol/L (5-15); BLOOD UREA NITROGEN 16 mg/dL (7-18); CALCIUM 8.9 MG/DL (8.5-10.1); CARBON DIOXIDE 29 MMOL/L (21-32); CHLORIDE 104 MMOL/L (98-107); CREATININE 0.9 MG/DL (0.55-1.30); POTASSIUM 4.4 MMOL/L (3.5-5.1); SODIUM 141 MMOL/L (136-145)
[2018-06-12 07:02] LABS: BASOPHILS % (AUTO) 0.6 % (0.0-2.0); EOSINOPHILS % (AUTO) 0.8 % (0.0-3.0); HEMATOCRIT 35.2 % (42.0-52.0); HEMOGLOBIN 12.1 G/DL (14.2-18.0); LYMPHOCYTES % (AUTO) 18.5 % (20.0-45.0); MEAN CORPUSCULAR VOLUME 89 FL (80-99); MONOCYTES % (AUTO) 10.8 % (1.0-10.0); NEUTROPHILS % (AUTO) 69.4 % (45.0-75.0); PLATELET COUNT 293 K/UL (150-450); RED BLOOD COUNT 3.95 M/UL (4.70-6.10); RED CELL DISTRIBUTION WIDTH 12.1 % (11.6-14.8); WHITE BLOOD COUNT 12.9 K/UL (4.8-10.8)
[2018-06-12] MEDS: Docusate 100mg cap ORAL SCH ×2 (08:06→17:09)
[2018-06-12] MEDS: BusPIRone 10mg Tab ORAL SCH ×2 (08:06→17:09)
[2018-06-12] MEDS: Heparin 5000 units/ml inj SUBQ SCH ×2 (08:07→20:43)
[2018-06-12 09:00] VITALS: BP 116/59
[2018-06-12 12:00] VITALS: BP 100/50
--- NOTE | 2018-06-12 12:12 | Consultation ---
History of Present Illness General Date patient seen: Jun 12, 2018 Chief Complaint: General Complaint Referring physician: FABIO GASTELUM Reason for Consultation: HEPATIC ENCEPHALOPATHY Present Illness HPI 67 y/o M with hx of paranoid schizophrenia, HTN, HLD, BPH, COPD, DM2, Depression /Anxiety, seizure disorder, CVA w/ L hemiplegia, bedbound, [facility] resident presents to ED on 06/07 with mental status change (increased confusion) and weakness Of note, admitted here in September 2017 for R side chest abscess 2ry to MRSA Allergies: Coded Allergies: No Known Allergies (Unverified , 01/05/13) Medication History Scheduled Buspirone Hcl* (Buspar*), 5 MG ORAL BID, (Reported) Docusate Sodium* (Docusate Sodium*), 100 MG ORAL DAILY, (Reported) Finasteride* (Proscar*), 5 MG ORAL DAILY, (Reported) Heparin Sod (Porcine) (Heparin Sodium*), 5,000 UNITS SUBQ EVERY 12 HOURS, ( Reported) Levetiracetam* (Levetiracetam*), 500 MG ORAL Q12HR, (Reported) Lisinopril (Lisinopril*), 20 MG ORAL DAILY Metformin Hcl* (Metformin Hcl*), 1,000 MG ORAL BID, (Reported) Multivitamin With Minerals (Multivitamins With Minerals*), 1 TAB ORAL DAILY, ( Reported) Nph, Human Insulin Isophane* (Novolin N*), 12 UNITS SUBQ BEFORE BREAKFAST, ( Reported) Nph, Human Insulin Isophane* (Novolin N*), 6 UNITS SUBQ QPM, (Reported) Olanzapine* (Zyprexa*), 2.5 MG ORAL BID, (Reported) Trimethoprim/Sulfamethoxazole 160/800* (Bactrim Ds Tablet*), 1 TAB ORAL BID, ( Reported) Trimethoprim/Sulfamethoxazole 160/800* (Bactrim Ds Tablet*), 1 TAB ORAL BID, ( Reported) Valproate Sodium (Valproic Acid), 10 ML PO BID, (Reported) Scheduled PRN Acetaminophen (Tylenol), 325 MG PO Q4HR PRN for Mild Pain (Pain Scale 1-3), ( Reported) Acetaminophen* (Acetaminophen 325MG Tablet*), 650 MG ORAL Q4H PRN for Fever/ Headache/Mild Pain, (Reported) Acetaminophen* (Tylenol Extra Strength*), 500 MG ORAL Q4HR PRN for Moderate Breakthru Pain (5-7), (Reported) Bisacodyl (Bisacodyl), 10 MG RC for Constipation, (Reported) Magnesium Hydroxide* (Milk Of Magnesia*), 30 ML ORAL HS PRN for Constipation, ( Reported) Na Phos,M-B/Na Phos,Di-Ba* (Fleet Enema*), 133 ML RECTAL for Constipation, ( Reported) Na Phos,M-B/Na Phos,Di-Ba* (Fleet Enema*), 133 ML RECTAL DAILY PRN for Constipation, (Reported) Miscellaneous Medications Insulin Aspart (Novolog), 100 UNIT SQ, (Reported) Insulin Aspart (Novolog Flexpen), (Reported) Patient History Healthcare decision maker N/A Resuscitation status Full Code Advanced Directive on File No Patient History Narrative Pmhx: as above Shx:no indication of alcohol use, illicit substance use, or smoking cigarettes. FHx: non contributory Physical Exam Physical Exam Narrative GENERAL: Calm in bed, slightly confused. No complaint. Oriented x1, in no acute distress. CARDIOVASCULAR: No murmurs. LUNGS: Distant and clear. ABDOMEN: Bowel sounds positive. Nontender and nondistended. EXTREMITIES: No cyanosis, clubbing, or edema. NEUROLOGIC: The patient moves all extremities, slightly weak. Last 24 Hour Vital Signs Date Time Temp Pulse Resp B/P (MAP) Pulse Ox O2 Delivery O2 Flow Rate FiO2 06/12/18 09:00 97.0 61 11 116/59 (78) 96 06/12/18 08:29 Room Air 06/12/18 04:00 97.0 65 17 137/67 (90) 96 06/12/18 00:00 98.7 65 18 148/69 (95) 100 06/11/18 21:00 Room Air 06/11/18 20:00 97.3 78 17 156/92 (113) 95 06/11/18 16:00 98.8 65 19 138/72 (94) 99 65 Intake and Output 06/11/18 06/12/18 19:00 07:00 Intake Total 720 ml Balance 720 ml Intake Oral 720 ml # Voids 3 2 # Bowel Movements 1 1 Laboratory Tests Test 06/11/18 16:30 06/12/18 05:35 Stool Occult Blood Negative (NEGATIVE) White Blood Count 12.9 K/UL (4.8-10.8) #H Red Blood Count 3.95 M/UL (4.70-6.10) L Hemoglobin 12.1 G/DL (14.2-18.0) L Hematocrit 35.2 % (42.0-52.0) L Mean Corpuscular Volume 89 FL (80-99) Mean Corpuscular Hemoglobin 30.5 PG (27.0-31.0) Mean Corpuscular Hemoglobin Concent 34.2 G/DL (32.0-36.0) Red Cell Distribution Width 12.1 % (11.6-14.8) Platelet Count 293 K/UL (150-450) Mean Platelet Volume 7.0 FL (6.5-10.1) Neutrophils (%) (Auto) 69.4 % (45.0-75.0) Lymphocytes (%) (Auto) 18.5 % (20.0-45.0) L Monocytes (%) (Auto) 10.8 % (1.0-10.0) H Eosinophils (%) (Auto) 0.8 % (0.0-3.0) Basophils (%) (Auto) 0.6 % (0.0-2.0) Sodium Level 141 MMOL/L (136-145) Potassium Level 4.4 MMOL/L (3.5-5.1) Chloride Level 104 MMOL/L (98-107) Carbon Dioxide Level 29 MMOL/L (21-32) Anion Gap 8 mmol/L (5-15) Blood Urea Nitrogen 16 mg/dL (7-18) Creatinine 0.9 MG/DL (0.55-1.30) Estimat Glomerular Filtration Rate > 60 mL/min (>60) Glucose Level 140 MG/DL (74-106) H Calcium Level 8.9 MG/DL (8.5-10.1) Height (Feet): 5 Height (Inches): 7.00 Weight (Pounds): 118 Medications Current Medications Medications (Trade) Dose Ordered Sig/Kun Route PRN Reason Start Time Stop Time Status Last Admin Dose Admin Acetaminophen (Tylenol) 650 mg Q4H PRN ORAL fever 06/07/18 21:45 07/07/18 21:44 Al Hydroxide/Mg Hydroxide (Mylanta II) 30 ml Q6H PRN ORAL dyspepsia 06/07/18 21:45 07/07/18 21:44 Atorvastatin Calcium (Lipitor) 10 mg BEDTIME ORAL 06/09/18 21:00 07/09/18 20:59 06/11/18 20:53 Buspirone HCl (Buspar) 5 mg BID ORAL 06/08/18 18:00 07/08/18 17:59 06/12/18 08:06 Dextrose (Dextrose 50%) 25 ml Q30M PRN IV Hypoglycemia 06/07/18 21:45 07/07/18 21:44 Dextrose (Dextrose 50%) 50 ml Q30M PRN IV Hypoglycemia 06/07/18 21:45 07/07/18 21:44 Docusate Sodium (Colace) 100 mg TWICE A DAY ORAL 06/09/18 09:00 07/09/18 08:59 06/12/18 08:06 Folic Acid (Folate) 1 mg DAILY ORAL 06/10/18 09:00 07/10/18 08:59 06/12/18 08:06 Heparin Sodium (Porcine) (Heparin 5000 units/ml) 5,000 units EVERY 12 HOURS SUBQ 06/08/18 09:00 07/08/18 08:59 06/12/18 08:07 Insulin Aspart (NovoLOG) BEFORE MEALS AND HS SUBQ 06/08/18 06:30 07/08/18 06:29 06/12/18 06:25 Levetiracetam (Keppra) 500 mg Q12HR ORAL 06/08/18 09:00 07/08/18 08:59 06/12/18 08:06 Lorazepam (Ativan 2mg/ml 1ml) 0.5 mg Q4H PRN IV For Anxiety 06/07/18 21:45 06/14/18 21:44 06/12/18 02:19 Morphine Sulfate (Morphine Sulfate) 1 mg Q4H PRN IVP For Pain 06/07/18 21:45 06/14/18 21:44 Olanzapine (ZyPREXA) 5 mg BID ORAL 06/11/18 09:00 07/08/18 17:59 06/12/18 08:06 Ondansetron HCl (Zofran) 4 mg Q6H PRN IVP Nausea & Vomiting 06/07/18 21:45 07/07/18 21:44 Polyethylene Glycol (Miralax) 17 gm HSPRN PRN ORAL Constipation 06/07/18 21:45 07/07/18 21:44 06/10/18 17:03 Valproic Acid (Depakene) 500 mg TWICE A DAY ORAL 06/11/18 09:00 07/11/18 08:59 06/12/18 08:06 Zolpidem Tartrate (Ambien) 5 mg HSPRN PRN ORAL Insomnia 06/07/18 21:45 06/14/18 21:44 06/08/18 02:40 Assessment/Plan Assessment/Plan Abx: Assessment: Acute encephalopathy -CT head:Multiple old infarcts, as described, also demonstrated on prior 2017 exam. Other chronic and age-related changes, as described. Negative for acute intracranial bleed or mass effect Seizures episodes Afebrile Mild leukocytosis- suspect likely reactive, no evidence of infectious process. -u/a neg -06/09 CXR: The lungs are grossly clear. hx of R chest abscess 2ry to MRSA -09/2017 wound cx MRSA (S vancomycin, bactrim, tetracycline) -. CVA w/ L hemiplegia - Seizure disorder. -. History of dysphagia in the past. -. Hyperlipidemia. -. Hypertension. -. BPH. -. Diabetes. -. Schizophrenia. -. Depression/anxiety. -. COPD -. bedbound -. [facility] resident Plan: -Continue to monitor off abx -10/05 SP Bactrim #8 -09/27/17 SP IV Vancomycin #5 -f/u cx -Monitor CBC/CMP, temperatures -Aspiration precautions -CBC, CMP am Thank you for this consultation. Will continue to follow along with you. Discussed with Shell Lozano M.D. Jun 12, 2018 12:12
--- NOTE | 2018-06-12 12:28 | General Progress Note ---
Assessment/Plan Problem List: (1) Acute encephalopathy ICD Codes: G93.40 - Encephalopathy, unspecified SNOMED: 96967526, 481981254 (2) COPD (chronic obstructive pulmonary disease) ICD Codes: J44.9 - Chronic obstructive pulmonary disease, unspecified SNOMED: 48312838 (3) Anemia ICD Codes: D64.9 - Anemia, unspecified SNOMED: 906416263 (4) DM (diabetes mellitus) ICD Codes: E11.9 - Diabetes mellitus SNOMED: 47282253 (5) Acute CVA (cerebrovascular accident) ICD Codes: I63.9 - Acute CVA (cerebrovascular accident) SNOMED: 425186187 (6) Seizure disorder ICD Codes: G40.909 - Seizure disorder SNOMED: 010375598 (7) HTN (hypertension) ICD Codes: I10 - Hypertension SNOMED: 14881844 Status: stable, progressing Assessment/Plan ot pt diet bp bs seizure control cbc bmp am dc if clear by id neuro and cardio Subjective Constitutional: Reports: weakness Allergies: Coded Allergies: No Known Allergies (Unverified , 01/05/13) All Systems: reviewed and negative except above Subjective calm in bed sleepy Objective Last 24 Hour Vital Signs Date Time Temp Pulse Resp B/P (MAP) Pulse Ox O2 Delivery O2 Flow Rate FiO2 06/12/18 09:00 97.0 61 11 116/59 (78) 96 06/12/18 08:29 Room Air 06/12/18 04:00 97.0 65 17 137/67 (90) 96 06/12/18 00:00 98.7 65 18 148/69 (95) 100 06/11/18 21:00 Room Air 06/11/18 20:00 97.3 78 17 156/92 (113) 95 06/11/18 16:00 98.8 65 19 138/72 (94) 99 65 Intake and Output 06/11/18 06/12/18 19:00 07:00 Intake Total 720 ml Balance 720 ml Intake Oral 720 ml # Voids 3 2 # Bowel Movements 1 1 Laboratory Tests 06/11/18 16:30: Stool Occult Blood Negative 06/12/18 05:35: White Blood Count 12.9#H, Red Blood Count 3.95L, Hemoglobin 12.1L, Hematocrit 35.2L, Mean Corpuscular Volume 89, Mean Corpuscular Hemoglobin 30.5, Mean Corpuscular Hemoglobin Concent 34.2, Red Cell Distribution Width 12.1, Platelet Count 293, Mean Platelet Volume 7.0, Neutrophils (%) (Auto) 69.4, Lymphocytes (% ) (Auto) 18.5L, Monocytes (%) (Auto) 10.8H, Eosinophils (%) (Auto) 0.8, Basophils (%) (Auto) 0.6, Sodium Level 141, Potassium Level 4.4, Chloride Level 104, Carbon Dioxide Level 29, Anion Gap 8, Blood Urea Nitrogen 16, Creatinine 0.9, Estimat Glomerular Filtration Rate > 60, Glucose Level 140H, Calcium Level 8.9 Height (Feet): 5 Height (Inches): 7.00 Weight (Pounds): 118 General Appearance: lethargic EENT: normal ENT inspection Neck: normal alignment Cardiovascular: normal peripheral pulses, normal rate, regular rhythm Respiratory/Chest: chest wall non-tender, lungs clear, normal breath sounds Abdomen: normal bowel sounds, non tender, soft Extremities: normal inspection Edema: no edema noted Arm (L), no edema noted Arm (R), no edema noted Leg (L), no edema noted Leg (R), no edema noted Pedal (L), no edema noted Pedal (R), no edema noted Generalized Neurologic: motor weakness Skin: normal pigmentation, warm/dry Nura Carter DO Jun 12, 2018 12:28
--- NOTE | 2018-06-12 13:47 | Pulmonology Progress Note ---
Assessment/Plan Problems: (1) Acute encephalopathy (2) COPD (chronic obstructive pulmonary disease) (3) Seizure disorder (4) HTN (hypertension) (5) DM (diabetes mellitus) Assessment/Plan improving respiratory treatment sliding scale diabetic diet monitor BP no more seizures dc planning for today Subjective ROS Limited/Unobtainable: No Constitutional: Reports: no symptoms HEENT: Repors: no symptoms Respiratory: Reports: no symptoms Allergies: Coded Allergies: No Known Allergies (Unverified , 01/05/13) Objective Last 24 Hour Vital Signs Date Time Temp Pulse Resp B/P (MAP) Pulse Ox O2 Delivery O2 Flow Rate FiO2 06/12/18 12:00 96.8 67 13 100/50 (67) 96 67 06/12/18 09:00 97.0 61 11 116/59 (78) 96 06/12/18 08:29 Room Air 06/12/18 04:00 97.0 65 17 137/67 (90) 96 06/12/18 00:00 98.7 65 18 148/69 (95) 100 06/11/18 21:00 Room Air 06/11/18 20:00 97.3 78 17 156/92 (113) 95 06/11/18 16:00 98.8 65 19 138/72 (94) 99 65 Intake and Output 06/11/18 06/12/18 19:00 07:00 Intake Total 720 ml Balance 720 ml Intake Oral 720 ml # Voids 3 2 # Bowel Movements 1 1 Objective General Appearance: WD/WN HEENT: normocephalic, atraumatic Respiratory/Chest: chest wall non-tender, lungs clear Breasts: no masses Cardiovascular: normal peripheral pulses Abdomen: normal bowel sounds, soft, non tender, no organomegaly 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 Lymphatic: no neck adenopathy Laboratory Tests 06/11/18 16:30: Stool Occult Blood Negative 06/12/18 05:35: White Blood Count 12.9#H, Red Blood Count 3.95L, Hemoglobin 12.1L, Hematocrit 35.2L, Mean Corpuscular Volume 89, Mean Corpuscular Hemoglobin 30.5, Mean Corpuscular Hemoglobin Concent 34.2, Red Cell Distribution Width 12.1, Platelet Count 293, Mean Platelet Volume 7.0, Neutrophils (%) (Auto) 69.4, Lymphocytes (% ) (Auto) 18.5L, Monocytes (%) (Auto) 10.8H, Eosinophils (%) (Auto) 0.8, Basophils (%) (Auto) 0.6, Sodium Level 141, Potassium Level 4.4, Chloride Level 104, Carbon Dioxide Level 29, Anion Gap 8, Blood Urea Nitrogen 16, Creatinine 0.9, Estimat Glomerular Filtration Rate > 60, Glucose Level 140H, Calcium Level 8.9 Current Medications Medications (Trade) Dose Ordered Sig/Kun Route PRN Reason Start Time Stop Time Status Last Admin Dose Admin Acetaminophen (Tylenol) 650 mg Q4H PRN ORAL fever 06/07/18 21:45 07/07/18 21:44 Al Hydroxide/Mg Hydroxide (Mylanta II) 30 ml Q6H PRN ORAL dyspepsia 06/07/18 21:45 07/07/18 21:44 Atorvastatin Calcium (Lipitor) 10 mg BEDTIME ORAL 06/09/18 21:00 07/09/18 20:59 06/11/18 20:53 Buspirone HCl (Buspar) 5 mg BID ORAL 06/08/18 18:00 07/08/18 17:59 06/12/18 08:06 Dextrose (Dextrose 50%) 25 ml Q30M PRN IV Hypoglycemia 06/07/18 21:45 07/07/18 21:44 Dextrose (Dextrose 50%) 50 ml Q30M PRN IV Hypoglycemia 06/07/18 21:45 07/07/18 21:44 Docusate Sodium (Colace) 100 mg TWICE A DAY ORAL 06/09/18 09:00 07/09/18 08:59 06/12/18 08:06 Folic Acid (Folate) 1 mg DAILY ORAL 06/10/18 09:00 07/10/18 08:59 06/12/18 08:06 Heparin Sodium (Porcine) (Heparin 5000 units/ml) 5,000 units EVERY 12 HOURS SUBQ 06/08/18 09:00 07/08/18 08:59 06/12/18 08:07 Insulin Aspart (NovoLOG) BEFORE MEALS AND HS SUBQ 06/08/18 06:30 07/08/18 06:29 06/12/18 13:00 Levetiracetam (Keppra) 500 mg Q12HR ORAL 06/08/18 09:00 07/08/18 08:59 06/12/18 08:06 Lorazepam (Ativan 2mg/ml 1ml) 0.5 mg Q4H PRN IV For Anxiety 06/07/18 21:45 06/14/18 21:44 06/12/18 02:19 Morphine Sulfate (Morphine Sulfate) 1 mg Q4H PRN IVP For Pain 06/07/18 21:45 06/14/18 21:44 Olanzapine (ZyPREXA) 5 mg BID ORAL 06/11/18 09:00 07/08/18 17:59 06/12/18 08:06 Ondansetron HCl (Zofran) 4 mg Q6H PRN IVP Nausea & Vomiting 06/07/18 21:45 07/07/18 21:44 Polyethylene Glycol (Miralax) 17 gm HSPRN PRN ORAL Constipation 06/07/18 21:45 07/07/18 21:44 06/10/18 17:03 Valproic Acid (Depakene) 500 mg TWICE A DAY ORAL 06/11/18 09:00 07/11/18 08:59 06/12/18 08:06 Zolpidem Tartrate (Ambien) 5 mg HSPRN PRN ORAL Insomnia 06/07/18 21:45 06/14/18 21:44 06/08/18 02:40 Mey Latham MD Jun 12, 2018 13:47
--- NOTE | 2018-06-12 15:22 | Cardiac Electrophysiology PN ---
Assessment/Plan Assessment/Plan 1. Hypertension. Continue lisinopril and p.r.n. clonidine Echo EF 55% 2. Seizure disorder on Keppra.Neuro eval pending 3. Altered mental status and psychosis, on Zyprexa. 4. Diabetes on insulin. 5. History of CVA with left hemiplegia. KUSHAL RN Subjective Subjective Comfortable in NAD. No events overnight. Awaiting neuro consult for ? seizure Objective Last 24 Hour Vital Signs Date Time Temp Pulse Resp B/P (MAP) Pulse Ox O2 Delivery O2 Flow Rate FiO2 06/12/18 12:00 96.8 67 13 100/50 (67) 96 67 06/12/18 09:00 97.0 61 11 116/59 (78) 96 06/12/18 08:29 Room Air 06/12/18 04:00 97.0 65 17 137/67 (90) 96 06/12/18 00:00 98.7 65 18 148/69 (95) 100 06/11/18 21:00 Room Air 06/11/18 20:00 97.3 78 17 156/92 (113) 95 06/11/18 16:00 98.8 65 19 138/72 (94) 99 65 Intake and Output 06/11/18 06/12/18 19:00 07:00 Intake Total 720 ml Balance 720 ml Intake Oral 720 ml # Voids 3 2 # Bowel Movements 1 1 Laboratory Tests Test 06/11/18 16:30 06/12/18 05:35 Stool Occult Blood Negative (NEGATIVE) White Blood Count 12.9 K/UL (4.8-10.8) #H Red Blood Count 3.95 M/UL (4.70-6.10) L Hemoglobin 12.1 G/DL (14.2-18.0) L Hematocrit 35.2 % (42.0-52.0) L Mean Corpuscular Volume 89 FL (80-99) Mean Corpuscular Hemoglobin 30.5 PG (27.0-31.0) Mean Corpuscular Hemoglobin Concent 34.2 G/DL (32.0-36.0) Red Cell Distribution Width 12.1 % (11.6-14.8) Platelet Count 293 K/UL (150-450) Mean Platelet Volume 7.0 FL (6.5-10.1) Neutrophils (%) (Auto) 69.4 % (45.0-75.0) Lymphocytes (%) (Auto) 18.5 % (20.0-45.0) L Monocytes (%) (Auto) 10.8 % (1.0-10.0) H Eosinophils (%) (Auto) 0.8 % (0.0-3.0) Basophils (%) (Auto) 0.6 % (0.0-2.0) Sodium Level 141 MMOL/L (136-145) Potassium Level 4.4 MMOL/L (3.5-5.1) Chloride Level 104 MMOL/L (98-107) Carbon Dioxide Level 29 MMOL/L (21-32) Anion Gap 8 mmol/L (5-15) Blood Urea Nitrogen 16 mg/dL (7-18) Creatinine 0.9 MG/DL (0.55-1.30) Estimat Glomerular Filtration Rate > 60 mL/min (>60) Glucose Level 140 MG/DL (74-106) H Calcium Level 8.9 MG/DL (8.5-10.1) Objective HEENT: No JVD or carotid bruit. LUNGS: Clear. CARDIOVASCULAR: Regular S1 and S2 with no gallop or murmur. ABDOMEN: Soft. EXTREMITIES: No pitting edema. Javier Becker MD Jun 12, 2018 15:22
[2018-06-12 16:00] VITALS: BP 95/53
--- NOTE | 2018-06-12 16:03 | GI Progress Note ---
Assessment/Plan Problems: (1) Anemia ICD Codes: D64.9 - Anemia, unspecified SNOMED: 956805058 (2) Dysphagia ICD Codes: R13.10 - Dysphagia, unspecified SNOMED: 50062290, 089722702 (3) Uncontrolled seizures ICD Codes: R56.9 - Unspecified convulsions SNOMED: 06241934 (4) DM (diabetes mellitus) ICD Codes: E11.9 - Diabetes mellitus SNOMED: 05843481 Status: stable Status Narrative Discussed with Dr. Stephens. Assessment/Plan anemia work up >> folate deficiency OB stool negative caloric count pending symptomatic treatment ADA diet, tolerating fu labs dvt prophylaxis outpatient GI procedures The patient was seen and examined at bedside and all new and available data was reviewed in the patients chart. I agree with the above findings, impression and plan. (Patient seen earlier today. Signature stamp does not reflect patient encounter time.). - James Stephens MD Subjective Gastrointestinal/Abdominal: Reports: no symptoms Objective Last 24 Hour Vital Signs Date Time Temp Pulse Resp B/P (MAP) Pulse Ox O2 Delivery O2 Flow Rate FiO2 06/12/18 12:00 96.8 67 13 100/50 (67) 96 67 06/12/18 09:00 97.0 61 11 116/59 (78) 96 06/12/18 08:29 Room Air 06/12/18 04:00 97.0 65 17 137/67 (90) 96 06/12/18 00:00 98.7 65 18 148/69 (95) 100 06/11/18 21:00 Room Air 06/11/18 20:00 97.3 78 17 156/92 (113) 95 Intake and Output 06/11/18 06/12/18 19:00 07:00 Intake Total 720 ml Balance 720 ml Intake Oral 720 ml # Voids 3 2 # Bowel Movements 1 1 Laboratory Tests Test 06/11/18 16:30 06/12/18 05:35 Stool Occult Blood Negative (NEGATIVE) White Blood Count 12.9 K/UL (4.8-10.8) #H Red Blood Count 3.95 M/UL (4.70-6.10) L Hemoglobin 12.1 G/DL (14.2-18.0) L Hematocrit 35.2 % (42.0-52.0) L Mean Corpuscular Volume 89 FL (80-99) Mean Corpuscular Hemoglobin 30.5 PG (27.0-31.0) Mean Corpuscular Hemoglobin Concent 34.2 G/DL (32.0-36.0) Red Cell Distribution Width 12.1 % (11.6-14.8) Platelet Count 293 K/UL (150-450) Mean Platelet Volume 7.0 FL (6.5-10.1) Neutrophils (%) (Auto) 69.4 % (45.0-75.0) Lymphocytes (%) (Auto) 18.5 % (20.0-45.0) L Monocytes (%) (Auto) 10.8 % (1.0-10.0) H Eosinophils (%) (Auto) 0.8 % (0.0-3.0) Basophils (%) (Auto) 0.6 % (0.0-2.0) Sodium Level 141 MMOL/L (136-145) Potassium Level 4.4 MMOL/L (3.5-5.1) Chloride Level 104 MMOL/L (98-107) Carbon Dioxide Level 29 MMOL/L (21-32) Anion Gap 8 mmol/L (5-15) Blood Urea Nitrogen 16 mg/dL (7-18) Creatinine 0.9 MG/DL (0.55-1.30) Estimat Glomerular Filtration Rate > 60 mL/min (>60) Glucose Level 140 MG/DL (74-106) H Calcium Level 8.9 MG/DL (8.5-10.1) Height (Feet): 5 Height (Inches): 7.00 Weight (Pounds): 118 General Appearance: WD/WN, no apparent distress, alert, thin Cardiovascular: normal rate Respiratory/Chest: normal breath sounds, no respiratory distress Abdominal Exam: normal bowel sounds, non tender, soft Extremities: non-tender Orville Muñiz NP Jun 12, 2018 16:03
[2018-06-12 20:00] VITALS: BP 121/71
[2018-06-12] MEDS: Zolpidem 5mg tab ORAL PRN (20:42)
[2018-06-13] VITALS: BP 137/69
--- NOTE | 2018-06-13 | Consultation ---
DATE OF CONSULTATION: 06/12/2018 CONSULTING PHYSICIAN: Berto Umana M.D. HISTORY OF PRESENT ILLNESS: This is a 67-year-old male patient with hypertension, increased mood lability and agitation worsened by stress of his medical illness. That is why his attending has requested daily psychiatric consultation. MENTAL STATUS EXAMINATION: The patient is a 67-year-old male. Appearance is disheveled. Attitude, irritable and agitated. Affect, guarded and restricted. Intellect poor. Mood, depressed and anxious. Motor activity, psychomotor agitation. Attention is poor. Orientation x2. Speech is pressured. Thought process is logical. Thought content, auditory hallucinations and paranoid delusions. Insight and judgment is poor. As far as his . DIAGNOSIS: Schizoaffective, bipolar type. PLAN: Treat him with Zyprexa 5 mg twice a day, , BuSpar 5 mg twice a day. Provided him with 20 minutes of cognitive behavioral therapy to help him identify automatic negative thoughts and help him to convert the negative thoughts to more positive thinking to reduce depression and anxiety. Chart reviewed. Discussed with staff. Seen and assessed in his room. Berto Umana M.D. DR: GERRI JOB#: [id number] CC:
[2018-06-13 04:00] VITALS: BP 150/70
[2018-06-13] MEDS: NovoLOG Insulin Flexpen SUBQ SCH ×2 (05:38→12:21)
[2018-06-13 06:35] LABS: EOSINOPHILS % (AUTO) 1.7 % (0.0-3.0); HEMATOCRIT 35.4 % (42.0-52.0); HEMOGLOBIN 11.8 G/DL (14.2-18.0); LYMPHOCYTES % (AUTO) 35.7 % (20.0-45.0); MEAN CORPUSCULAR VOLUME 90 FL (80-99); MONOCYTES % (AUTO) 9.9 % (1.0-10.0); NEUTROPHILS % (AUTO) 51.7 % (45.0-75.0); PLATELET COUNT 302 K/UL (150-450); RED BLOOD COUNT 3.92 M/UL (4.70-6.10); RED CELL DISTRIBUTION WIDTH 12.2 % (11.6-14.8); WHITE BLOOD COUNT 7.3 K/UL (4.8-10.8)
[2018-06-13 06:59] LABS: ALANINE AMINOTRANSFERASE 14 U/L (12-78); ALBUMIN 3.5 G/DL (3.4-5.0); ALBUMIN/GLOBULIN RATIO 0.7 (1.0-2.7); ALKALINE PHOSPHATASE 58 U/L (46-116); ANION GAP 9 mmol/L (5-15); ASPARTATE AMINO TRANSFERASE 10 U/L (15-37); BILIRUBIN,TOTAL 0.4 MG/DL (0.2-1.0); BLOOD UREA NITROGEN 18 mg/dL (7-18); CALCIUM 9.3 MG/DL (8.5-10.1); CARBON DIOXIDE 28 MMOL/L (21-32); CHLORIDE 108 MMOL/L (98-107); CREATININE 0.9 MG/DL (0.55-1.30); POTASSIUM 4.2 MMOL/L (3.5-5.1); SODIUM 145 MMOL/L (136-145)
[2018-06-13 08:00] VITALS: BP 152/78
--- NOTE | 2018-06-13 09:34 | General Progress Note ---
Assessment/Plan Problem List: (1) Acute encephalopathy ICD Codes: G93.40 - Encephalopathy, unspecified SNOMED: 89871529, 957610122 (2) Anemia ICD Codes: D64.9 - Anemia, unspecified SNOMED: 316865537 (3) Seizure disorder ICD Codes: G40.909 - Seizure disorder SNOMED: 104051641 (4) HTN (hypertension) ICD Codes: I10 - Hypertension SNOMED: 60945477 (5) DM (diabetes mellitus) ICD Codes: E11.9 - Diabetes mellitus SNOMED: 49428907 (6) Arterial ischemic stroke, MCA (middle cerebral artery), right, chronic ICD Codes: Z86.73 - Arterial ischemic stroke, MCA (middle cerebral artery), right, chronic SNOMED: 863417380 Assessment/Plan stable H&H fu labs dvt prophylaxis no plans for GI procedures in this admission Subjective ROS Limited/Unobtainable: No Allergies: Coded Allergies: No Known Allergies (Unverified , 01/05/13) Objective Last 24 Hour Vital Signs Date Time Temp Pulse Resp B/P (MAP) Pulse Ox O2 Delivery O2 Flow Rate FiO2 06/13/18 04:00 96.4 62 16 150/70 (96) 93 06/13/18 00:00 74 18 137/69 (91) 06/12/18 21:00 Room Air 06/12/18 20:00 97.4 83 16 121/71 (88) 96 06/12/18 16:00 97.5 64 18 95/53 (67) 98 64 06/12/18 12:00 96.8 67 13 100/50 (67) 96 67 Intake and Output 06/12/18 06/13/18 19:00 07:00 Intake Total 680 ml Balance 680 ml Intake Oral 680 ml # Voids 3 2 Laboratory Tests 06/13/18 05:50: White Blood Count 7.3, Red Blood Count 3.92L, Hemoglobin 11.8L, Hematocrit 35.4L , Mean Corpuscular Volume 90, Mean Corpuscular Hemoglobin 30.1, Mean Corpuscular Hemoglobin Concent 33.3, Red Cell Distribution Width 12.2, Platelet Count 302, Mean Platelet Volume 7.3, Neutrophils (%) (Auto) 51.7, Lymphocytes (% ) (Auto) 35.7, Monocytes (%) (Auto) 9.9, Eosinophils (%) (Auto) 1.7, Basophils ( %) (Auto) 1.0, Sodium Level 145, Potassium Level 4.2, Chloride Level 108H, Carbon Dioxide Level 28, Anion Gap 9, Blood Urea Nitrogen 18, Creatinine 0.9, Estimat Glomerular Filtration Rate > 60, Glucose Level 157H, Calcium Level 9.3, Total Bilirubin 0.4, Aspartate Amino Transf (AST/SGOT) 10L, Alanine Aminotransferase (ALT/SGPT) 14, Alkaline Phosphatase 58, Total Protein 8.3H, Albumin 3.5, Globulin 4.8, Albumin/Globulin Ratio 0.7L Height (Feet): 5 Height (Inches): 7.00 Weight (Pounds): 124 General Appearance: no apparent distress EENT: normal ENT inspection Neck: supple Cardiovascular: normal rate Respiratory/Chest: decreased breath sounds Abdomen: normal bowel sounds, non tender, soft Extremities: non-tender James Stehpens MD Jun 13, 2018 09:34
[2018-06-13] MEDS: Heparin 5000 units/ml inj SUBQ SCH (09:37)
[2018-06-13] MEDS: Docusate 100mg cap ORAL SCH (09:37)
[2018-06-13] MEDS: BusPIRone 10mg Tab ORAL SCH (09:38)
--- NOTE | 2018-06-13 11:58 | Cardiac Electrophysiology PN ---
Assessment/Plan Assessment/Plan 1. Hypertension. Start lisinopril 10 daily and p.r.n. clonidine Echo EF 55% 2. Seizure disorder on Keppra.FU with Neuro 3. Altered mental status and psychosis, on Zyprexa. 4. Diabetes on insulin. 5. History of CVA with left hemiplegia.MRI brain pending DW RN Subjective Subjective Comfortable in NAD. No events overnight. MRI brain pending Objective Last 24 Hour Vital Signs Date Time Temp Pulse Resp B/P (MAP) Pulse Ox O2 Delivery O2 Flow Rate FiO2 06/13/18 09:00 Room Air 06/13/18 08:00 97.3 73 12 152/78 (102) 100 06/13/18 04:00 96.4 62 16 150/70 (96) 93 06/13/18 00:00 74 18 137/69 (91) 06/12/18 21:00 Room Air 06/12/18 20:00 97.4 83 16 121/71 (88) 96 06/12/18 16:00 97.5 64 18 95/53 (67) 98 64 06/12/18 12:00 96.8 67 13 100/50 (67) 96 67 Intake and Output 06/12/18 06/13/18 19:00 07:00 Intake Total 680 ml Balance 680 ml Intake Oral 680 ml # Voids 3 2 Laboratory Tests Test 06/13/18 05:50 White Blood Count 7.3 K/UL (4.8-10.8) Red Blood Count 3.92 M/UL (4.70-6.10) L Hemoglobin 11.8 G/DL (14.2-18.0) L Hematocrit 35.4 % (42.0-52.0) L Mean Corpuscular Volume 90 FL (80-99) Mean Corpuscular Hemoglobin 30.1 PG (27.0-31.0) Mean Corpuscular Hemoglobin Concent 33.3 G/DL (32.0-36.0) Red Cell Distribution Width 12.2 % (11.6-14.8) Platelet Count 302 K/UL (150-450) Mean Platelet Volume 7.3 FL (6.5-10.1) Neutrophils (%) (Auto) 51.7 % (45.0-75.0) Lymphocytes (%) (Auto) 35.7 % (20.0-45.0) Monocytes (%) (Auto) 9.9 % (1.0-10.0) Eosinophils (%) (Auto) 1.7 % (0.0-3.0) Basophils (%) (Auto) 1.0 % (0.0-2.0) Sodium Level 145 MMOL/L (136-145) Potassium Level 4.2 MMOL/L (3.5-5.1) Chloride Level 108 MMOL/L (98-107) H Carbon Dioxide Level 28 MMOL/L (21-32) Anion Gap 9 mmol/L (5-15) Blood Urea Nitrogen 18 mg/dL (7-18) Creatinine 0.9 MG/DL (0.55-1.30) Estimat Glomerular Filtration Rate > 60 mL/min (>60) Glucose Level 157 MG/DL (74-106) H Calcium Level 9.3 MG/DL (8.5-10.1) Total Bilirubin 0.4 MG/DL (0.2-1.0) Aspartate Amino Transf (AST/SGOT) 10 U/L (15-37) L Alanine Aminotransferase (ALT/SGPT) 14 U/L (12-78) Alkaline Phosphatase 58 U/L (46-116) Total Protein 8.3 G/DL (6.4-8.2) H Albumin 3.5 G/DL (3.4-5.0) Globulin 4.8 g/dL Albumin/Globulin Ratio 0.7 (1.0-2.7) L Objective HEENT: No JVD or carotid bruit. LUNGS: Clear. CARDIOVASCULAR: Regular S1 and S2 with no gallop or murmur. ABDOMEN: Soft. EXTREMITIES: No pitting edema. Javier Becker MD Jun 13, 2018 11:58
[2018-06-13 12:00] VITALS: BP 113/68
--- NOTE | 2018-06-13 12:27 | Pulmonology Progress Note ---
Assessment/Plan Problems: (1) Acute encephalopathy (2) COPD (chronic obstructive pulmonary disease) (3) Seizure disorder (4) HTN (hypertension) (5) DM (diabetes mellitus) Assessment/Plan improving respiratory treatment sliding scale diabetic diet monitor BP no more seizures dc planning for today Subjective ROS Limited/Unobtainable: No Constitutional: Reports: no symptoms HEENT: Repors: no symptoms Respiratory: Reports: no symptoms Allergies: Coded Allergies: No Known Allergies (Unverified , 01/05/13) Objective Last 24 Hour Vital Signs Date Time Temp Pulse Resp B/P (MAP) Pulse Ox O2 Delivery O2 Flow Rate FiO2 06/13/18 09:00 Room Air 06/13/18 08:00 97.3 73 12 152/78 (102) 100 06/13/18 04:00 96.4 62 16 150/70 (96) 93 06/13/18 00:00 74 18 137/69 (91) 06/12/18 21:00 Room Air 06/12/18 20:00 97.4 83 16 121/71 (88) 96 06/12/18 16:00 97.5 64 18 95/53 (67) 98 64 Intake and Output 06/12/18 06/13/18 19:00 07:00 Intake Total 680 ml Balance 680 ml Intake Oral 680 ml # Voids 3 2 Objective General Appearance: WD/WN HEENT: normocephalic, atraumatic Respiratory/Chest: chest wall non-tender, lungs clear Breasts: no masses Cardiovascular: normal peripheral pulses Abdomen: normal bowel sounds, soft, non tender, no organomegaly 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 Lymphatic: no neck adenopathy Laboratory Tests 06/13/18 05:50: White Blood Count 7.3, Red Blood Count 3.92L, Hemoglobin 11.8L, Hematocrit 35.4L , Mean Corpuscular Volume 90, Mean Corpuscular Hemoglobin 30.1, Mean Corpuscular Hemoglobin Concent 33.3, Red Cell Distribution Width 12.2, Platelet Count 302, Mean Platelet Volume 7.3, Neutrophils (%) (Auto) 51.7, Lymphocytes (% ) (Auto) 35.7, Monocytes (%) (Auto) 9.9, Eosinophils (%) (Auto) 1.7, Basophils ( %) (Auto) 1.0, Sodium Level 145, Potassium Level 4.2, Chloride Level 108H, Carbon Dioxide Level 28, Anion Gap 9, Blood Urea Nitrogen 18, Creatinine 0.9, Estimat Glomerular Filtration Rate > 60, Glucose Level 157H, Calcium Level 9.3, Total Bilirubin 0.4, Aspartate Amino Transf (AST/SGOT) 10L, Alanine Aminotransferase (ALT/SGPT) 14, Alkaline Phosphatase 58, Total Protein 8.3H, Albumin 3.5, Globulin 4.8, Albumin/Globulin Ratio 0.7L Current Medications Medications (Trade) Dose Ordered Sig/Kun Route PRN Reason Start Time Stop Time Status Last Admin Dose Admin Acetaminophen (Tylenol) 650 mg Q4H PRN ORAL fever 06/07/18 21:45 07/07/18 21:44 Al Hydroxide/Mg Hydroxide (Mylanta II) 30 ml Q6H PRN ORAL dyspepsia 06/07/18 21:45 07/07/18 21:44 Atorvastatin Calcium (Lipitor) 10 mg BEDTIME ORAL 06/09/18 21:00 07/09/18 20:59 06/12/18 20:42 Buspirone HCl (Buspar) 5 mg BID ORAL 06/08/18 18:00 07/08/18 17:59 06/13/18 09:38 Dextrose (Dextrose 50%) 25 ml Q30M PRN IV Hypoglycemia 06/07/18 21:45 07/07/18 21:44 Dextrose (Dextrose 50%) 50 ml Q30M PRN IV Hypoglycemia 06/07/18 21:45 07/07/18 21:44 Docusate Sodium (Colace) 100 mg TWICE A DAY ORAL 06/09/18 09:00 07/09/18 08:59 06/13/18 09:37 Folic Acid (Folate) 1 mg DAILY ORAL 06/10/18 09:00 07/10/18 08:59 06/13/18 09:38 Heparin Sodium (Porcine) (Heparin 5000 units/ml) 5,000 units EVERY 12 HOURS SUBQ 06/08/18 09:00 07/08/18 08:59 06/13/18 09:37 Insulin Aspart (NovoLOG) BEFORE MEALS AND HS SUBQ 06/08/18 06:30 07/08/18 06:29 06/13/18 12:21 Levetiracetam (Keppra) 500 mg Q12HR ORAL 06/08/18 09:00 07/08/18 08:59 06/13/18 09:37 Lorazepam (Ativan 2mg/ml 1ml) 0.5 mg Q4H PRN IV For Anxiety 06/07/18 21:45 06/14/18 21:44 06/12/18 02:19 Morphine Sulfate (Morphine Sulfate) 1 mg Q4H PRN IVP For Pain 06/07/18 21:45 06/14/18 21:44 Olanzapine (ZyPREXA) 5 mg BID ORAL 06/11/18 09:00 07/08/18 17:59 06/13/18 09:37 Ondansetron HCl (Zofran) 4 mg Q6H PRN IVP Nausea & Vomiting 06/07/18 21:45 07/07/18 21:44 Polyethylene Glycol (Miralax) 17 gm HSPRN PRN ORAL Constipation 06/07/18 21:45 07/07/18 21:44 06/10/18 17:03 Valproic Acid (Depakene) 500 mg TWICE A DAY ORAL 06/11/18 09:00 07/11/18 08:59 06/13/18 09:37 Zolpidem Tartrate (Ambien) 5 mg HSPRN PRN ORAL Insomnia 06/07/18 21:45 06/14/18 21:44 06/12/18 20:42 Mey Latham MD Jun 13, 2018 12:27
--- NOTE | 2018-06-13 13:39 | General Progress Note ---
Assessment/Plan Problem List: (1) Acute encephalopathy ICD Codes: G93.40 - Encephalopathy, unspecified SNOMED: 78493379, 256831021 (2) COPD (chronic obstructive pulmonary disease) ICD Codes: J44.9 - Chronic obstructive pulmonary disease, unspecified SNOMED: 82207925 (3) Anemia ICD Codes: D64.9 - Anemia, unspecified SNOMED: 565617736 (4) DM (diabetes mellitus) ICD Codes: E11.9 - Diabetes mellitus SNOMED: 13320218 (5) Acute CVA (cerebrovascular accident) ICD Codes: I63.9 - Acute CVA (cerebrovascular accident) SNOMED: 022194136 (6) Seizure disorder ICD Codes: G40.909 - Seizure disorder SNOMED: 229712806 (7) HTN (hypertension) ICD Codes: I10 - Hypertension SNOMED: 03081453 Status: stable, progressing Assessment/Plan ot pt diet bp bs seizure control dc to snf Subjective Constitutional: Reports: weakness Allergies: Coded Allergies: No Known Allergies (Unverified , 01/05/13) All Systems: reviewed and negative except above Subjective calm in bed sleepy Objective Last 24 Hour Vital Signs Date Time Temp Pulse Resp B/P (MAP) Pulse Ox O2 Delivery O2 Flow Rate FiO2 06/13/18 12:00 97.5 70 13 113/68 (83) 100 06/13/18 09:00 Room Air 06/13/18 08:00 97.3 73 12 152/78 (102) 100 06/13/18 04:00 96.4 62 16 150/70 (96) 93 06/13/18 00:00 74 18 137/69 (91) 06/12/18 21:00 Room Air 06/12/18 20:00 97.4 83 16 121/71 (88) 96 06/12/18 16:00 97.5 64 18 95/53 (67) 98 64 Intake and Output 06/12/18 06/13/18 19:00 07:00 Intake Total 680 ml Balance 680 ml Intake Oral 680 ml # Voids 3 2 Laboratory Tests 06/13/18 05:50: White Blood Count 7.3, Red Blood Count 3.92L, Hemoglobin 11.8L, Hematocrit 35.4L , Mean Corpuscular Volume 90, Mean Corpuscular Hemoglobin 30.1, Mean Corpuscular Hemoglobin Concent 33.3, Red Cell Distribution Width 12.2, Platelet Count 302, Mean Platelet Volume 7.3, Neutrophils (%) (Auto) 51.7, Lymphocytes (% ) (Auto) 35.7, Monocytes (%) (Auto) 9.9, Eosinophils (%) (Auto) 1.7, Basophils ( %) (Auto) 1.0, Sodium Level 145, Potassium Level 4.2, Chloride Level 108H, Carbon Dioxide Level 28, Anion Gap 9, Blood Urea Nitrogen 18, Creatinine 0.9, Estimat Glomerular Filtration Rate > 60, Glucose Level 157H, Calcium Level 9.3, Total Bilirubin 0.4, Aspartate Amino Transf (AST/SGOT) 10L, Alanine Aminotransferase (ALT/SGPT) 14, Alkaline Phosphatase 58, Total Protein 8.3H, Albumin 3.5, Globulin 4.8, Albumin/Globulin Ratio 0.7L Height (Feet): 5 Height (Inches): 7.00 Weight (Pounds): 124 General Appearance: lethargic EENT: normal ENT inspection Neck: normal alignment Cardiovascular: normal peripheral pulses, normal rate, regular rhythm Respiratory/Chest: chest wall non-tender, lungs clear, normal breath sounds Abdomen: normal bowel sounds, non tender, soft Extremities: normal inspection Edema: no edema noted Arm (L), no edema noted Arm (R), no edema noted Leg (L), no edema noted Leg (R), no edema noted Pedal (L), no edema noted Pedal (R), no edema noted Generalized Neurologic: motor weakness Skin: normal pigmentation, warm/dry Nura Carter DO Jun 13, 2018 13:39
[2018-06-13] MEDS ORDERED: LIPITOR10 MG ORAL (14:40)
[2018-06-13] MEDS ORDERED: FOLIC ACID1 M1 PO ×2 (14:42→14:43)
[2018-06-13] MEDS ORDERED: ZYPREXA5 MG ORAL (14:45)
[2018-06-13] MEDS ORDERED: DEPAKENE250 MG ORAL (14:47)
[2018-06-13] MEDS ORDERED: LORAZEPAM2 MG/1 M3 IV (14:49)
[2018-06-13] MEDS ORDERED: PCA MORPHINE1 MG/ML IV (14:50)
[2018-06-13] MEDS ORDERED: MORPHINE 22 MG/1 ML IV (14:52)
[2018-06-13] MEDS ORDERED: MORPHINE SU4 MG/1 ML IV (14:52)
[2018-06-13] MEDS ORDERED: ZOFRAN 4 MG4 MG/2 ML IV (14:52)
[2018-06-13] MEDS ORDERED: POLYETHYLENE GL17 GM ORAL (14:53)
[2018-06-13] MEDS ORDERED: AMBIEN5 MG ORAL (14:54)
[2018-06-13] MEDS ORDERED: DOCUSATE SODIU100 M2 ORAL (14:57)
[2018-06-13] MEDS ORDERED: NOVOLOG100 UNIT/4 SQ (15:00)
--- NOTE | 2018-06-13 15:11 | Infectious Diseases Prog Note ---
Assessment/Plan Assessment/Plan Assessment: Acute encephalopathy -CT head:Multiple old infarcts, as described, also demonstrated on prior 2017 exam. Other chronic and age-related changes, as described. Negative for acute intracranial bleed or mass effect Seizures episodes Afebrile Mild leukocytosis- suspect likely reactive, no evidence of infectious process. resolved off abx -u/a neg -06/09 CXR: The lungs are grossly clear. hx of R chest abscess 2ry to MRSA -09/2017 wound cx MRSA (S vancomycin, bactrim, tetracycline) -. CVA w/ L hemiplegia - Seizure disorder. -. History of dysphagia in the past. -. Hyperlipidemia. -. Hypertension. -. BPH. -. Diabetes. -. Schizophrenia. -. Depression/anxiety. -. COPD -. bedbound -. [facility] resident Plan: -Continue to monitor off abx -10/05 SP Bactrim #8 -09/27/17 SP IV Vancomycin #5 -f/u cx -Monitor CBC/CMP, temperatures -Aspiration precautions Thank you for this consultation. Will continue to follow along with you. Discussed with RN. Subjective Allergies: Coded Allergies: No Known Allergies (Unverified , 01/05/13) Subjective afebrile leukocytosis resolved off abx Objective Vital Signs Last 24 Hour Vital Signs Date Time Temp Pulse Resp B/P (MAP) Pulse Ox O2 Delivery O2 Flow Rate FiO2 06/13/18 12:00 97.5 70 13 113/68 (83) 100 06/13/18 09:00 Room Air 06/13/18 08:00 97.3 73 12 152/78 (102) 100 06/13/18 04:00 96.4 62 16 150/70 (96) 93 06/13/18 00:00 74 18 137/69 (91) 06/12/18 21:00 Room Air 06/12/18 20:00 97.4 83 16 121/71 (88) 96 06/12/18 16:00 97.5 64 18 95/53 (67) 98 64 Height (Feet): 5 Height (Inches): 7.00 Weight (Pounds): 124 Objective GENERAL: Calm in bed, slightly confused. No complaint. Oriented x1, in no acute distress. CARDIOVASCULAR: No murmurs. LUNGS: Distant and clear. ABDOMEN: Bowel sounds positive. Nontender and nondistended. EXTREMITIES: No cyanosis, clubbing, or edema. NEUROLOGIC: The patient moves all extremities, slightly weak. Laboratory Tests Test 06/13/18 05:50 White Blood Count 7.3 K/UL (4.8-10.8) Red Blood Count 3.92 M/UL (4.70-6.10) L Hemoglobin 11.8 G/DL (14.2-18.0) L Hematocrit 35.4 % (42.0-52.0) L Mean Corpuscular Volume 90 FL (80-99) Mean Corpuscular Hemoglobin 30.1 PG (27.0-31.0) Mean Corpuscular Hemoglobin Concent 33.3 G/DL (32.0-36.0) Red Cell Distribution Width 12.2 % (11.6-14.8) Platelet Count 302 K/UL (150-450) Mean Platelet Volume 7.3 FL (6.5-10.1) Neutrophils (%) (Auto) 51.7 % (45.0-75.0) Lymphocytes (%) (Auto) 35.7 % (20.0-45.0) Monocytes (%) (Auto) 9.9 % (1.0-10.0) Eosinophils (%) (Auto) 1.7 % (0.0-3.0) Basophils (%) (Auto) 1.0 % (0.0-2.0) Sodium Level 145 MMOL/L (136-145) Potassium Level 4.2 MMOL/L (3.5-5.1) Chloride Level 108 MMOL/L (98-107) H Carbon Dioxide Level 28 MMOL/L (21-32) Anion Gap 9 mmol/L (5-15) Blood Urea Nitrogen 18 mg/dL (7-18) Creatinine 0.9 MG/DL (0.55-1.30) Estimat Glomerular Filtration Rate > 60 mL/min (>60) Glucose Level 157 MG/DL (74-106) H Calcium Level 9.3 MG/DL (8.5-10.1) Total Bilirubin 0.4 MG/DL (0.2-1.0) Aspartate Amino Transf (AST/SGOT) 10 U/L (15-37) L Alanine Aminotransferase (ALT/SGPT) 14 U/L (12-78) Alkaline Phosphatase 58 U/L (46-116) Total Protein 8.3 G/DL (6.4-8.2) H Albumin 3.5 G/DL (3.4-5.0) Globulin 4.8 g/dL Albumin/Globulin Ratio 0.7 (1.0-2.7) L Current Medications Medications (Trade) Dose Ordered Sig/Kun Route PRN Reason Start Time Stop Time Status Last Admin Dose Admin Acetaminophen (Tylenol) 650 mg Q4H PRN ORAL fever 06/07/18 21:45 07/07/18 21:44 Al Hydroxide/Mg Hydroxide (Mylanta II) 30 ml Q6H PRN ORAL dyspepsia 06/07/18 21:45 07/07/18 21:44 Atorvastatin Calcium (Lipitor) 10 mg BEDTIME ORAL 06/09/18 21:00 07/09/18 20:59 06/12/18 20:42 Buspirone HCl (Buspar) 5 mg BID ORAL 06/08/18 18:00 07/08/18 17:59 06/13/18 09:38 Dextrose (Dextrose 50%) 25 ml Q30M PRN IV Hypoglycemia 06/07/18 21:45 07/07/18 21:44 Dextrose (Dextrose 50%) 50 ml Q30M PRN IV Hypoglycemia 06/07/18 21:45 07/07/18 21:44 Docusate Sodium (Colace) 100 mg TWICE A DAY ORAL 06/09/18 09:00 07/09/18 08:59 06/13/18 09:37 Folic Acid (Folate) 1 mg DAILY ORAL 06/10/18 09:00 07/10/18 08:59 06/13/18 09:38 Heparin Sodium (Porcine) (Heparin 5000 units/ml) 5,000 units EVERY 12 HOURS SUBQ 06/08/18 09:00 07/08/18 08:59 06/13/18 09:37 Insulin Aspart (NovoLOG) BEFORE MEALS AND HS SUBQ 06/08/18 06:30 07/08/18 06:29 06/13/18 12:21 Levetiracetam (Keppra) 500 mg Q12HR ORAL 06/08/18 09:00 07/08/18 08:59 06/13/18 09:37 Lorazepam (Ativan 2mg/ml 1ml) 0.5 mg Q4H PRN IV For Anxiety 06/07/18 21:45 06/14/18 21:44 06/12/18 02:19 Morphine Sulfate (Morphine Sulfate) 1 mg Q4H PRN IVP For Pain 06/07/18 21:45 06/14/18 21:44 Olanzapine (ZyPREXA) 5 mg BID ORAL 06/11/18 09:00 07/08/18 17:59 06/13/18 09:37 Ondansetron HCl (Zofran) 4 mg Q6H PRN IVP Nausea & Vomiting 06/07/18 21:45 07/07/18 21:44 Polyethylene Glycol (Miralax) 17 gm HSPRN PRN ORAL Constipation 06/07/18 21:45 07/07/18 21:44 06/10/18 17:03 Valproic Acid (Depakene) 500 mg TWICE A DAY ORAL 06/11/18 09:00 07/11/18 08:59 06/13/18 09:37 Zolpidem Tartrate (Ambien) 5 mg HSPRN PRN ORAL Insomnia 06/07/18 21:45 06/14/18 21:44 06/12/18 20:42 Shell Niño M.D. Jun 13, 2018 15:11
[2018-06-13 16:37] VITALS: BP 146/71
--- NOTE | 2018-06-13 20:00 | Progress Note ---
DATE: 06/13/2018 NOTE: INCOMPLETE DICTATION HISTORY OF PRESENT ILLNESS: This is a 67-year-old male patient Berto Umana M.D. DR: ZI JOB#: [id number] CC:
--- NOTE | 2018-06-14 00:15 | Progress Note ---
DATE: 06/13/2018 SUBJECTIVE: This is a 67-year-old male with hypertension. He has a diagnosis of paranoid schizophrenia and mood lability. That is why his attending has requested daily psychiatric consultation. MENTAL STATUS EXAMINATION: The patient is a 67-year-old male. Appearance is disheveled. Attitude, irritable and agitated. Affect, guarded and restricted. Intellect poor. Mood, depressed and anxious. Motor activity, psychomotor agitation. Attention span is poor. Orientation x2. Speech is pressured. Thought process, disorganized and illogical. Insight and judgment are poor. DIAGNOSIS: Schizoaffective, bipolar type. PLAN: Treat him with Zyprexa 5 mg twice a day . Provided him with 20 minutes of cognitive behavioral therapy to help him identify automatic negative thoughts and help him to convert the negative thoughts to more positive thoughts to reduce depression and anxiety. . Chart reviewed. Discussed with staff. Seen and assessed in his room. Berto Umana M.D. DR: ZI JOB#: [id number] CC:
--- NOTE | 2018-06-14 15:47 | Discharge Summary ---
Discharge Summary Discharge Summary _ DATE OF ADMISSION: June 09, 2018 DATE OF DISCHARGE: June 13, 2018 CONSULTANTS: Dr. Berto Villavicencio PsyD BRIEF HOSPITAL COURSE: Patient is a 57-year-old female, from [facility], presented with severe headache, migraine x 1 week. Symptoms became excruciating, 9 out of 10 and had low back pain 8/10 with sciatica. She reported falling from standing position and struck her head. She had increased headache after the recent fall. She complained of right hip pain. On evaluation at the ED, blood work did not show any leukocytosis, hemoglobin and hematocrit were stable. Platelet count was 93. Electrolytes were stable. Urinalysis essentially negative. Head CT was without any acute findings. Pelvic x-ray was without fracture or dislocation. Cervical CT showed no cervical fractures no malalignment, there was cervical spondylosis with voiding degrees of central canal stenosis. Lumbar spine CT was without fracture or malalignment, there was L5-S1 disc space narrowing. She was given pain management. She was given [place] and Flexeril. Vision complaint of headache, she was given Fioricet and Neurontin. Psychiatrist was consulted. Patient was diagnosed with bipolar 2 disorder. She was given Prozac, Wellbutrin, Lamictal. Given supportive psychotherapy. She was noted to have pancytopenia. HIV and hepatitis screen were negative from previous admission. Abdominal ultrasound, likewise showed normal liver and spleen. Anemia workup showed iron 65, ferritin 32. She was given IV iron. Was given PT and OT. IV fluids were discontinued. She was eventually cleared for discharge back to shelter. FINAL DIAGNOSES: Acute bilateral low back pain Migraine Cervical and lumbar disc disease Depression Bipolar 2 disorder Headache Pancytopenia Anemia of iron deficiency Ataxia with recurrent falls Generalized weakness DISPOSITION: Patient was discharged to [facility]. DISCHARGE MEDICATIONS: Refer to Discharge Medication List. I have been assigned to dictate discharge summary on this account, and I was not involved in the patient's management. Ny Diez NP Jun 14, 2018 15:47
== END 2018-06-13 17:27 | DRG 71 ==
LOC: EDBD 16:02 → EMR 17:05 → EDBEDREQ 20:51 → 4E 21:02 → EDBEDREQ 21:50 → 4E 06-08 01:54
DX: G93.40 Encephalopathy, unspecified (principal); I69.359 Hemiplegia and hemiparesis following cerebral infarction affecting unspecified side; F31.81 Bipolar II disorder; D61.818 Other pancytopenia; I69.354 Hemiplegia and hemiparesis following cerebral infarction affecting left non-dominant side; F20.0 Paranoid schizophrenia; G40.909 Epilepsy, unspecified, not intractable, without status epilepticus; I10 Essential (primary) hypertension; J44.9 Chronic obstructive pulmonary disease, unspecified; E11.9 Type 2 diabetes mellitus without complications; Z86.73 Personal history of transient ischemic attack (TIA), and cerebral infarction without residual deficits; G43.909 Migraine, unspecified, not intractable, without status migrainosus; M50.30 Other cervical disc degeneration, unspecified cervical region; M51.36 Other intervertebral disc degeneration, lumbar region; D50.9 Iron deficiency anemia, unspecified; R27.0 Ataxia, unspecified; W19.XXXA Unspecified fall, initial encounter; Z91.81 History of falling; Z79.4 Long term (current) use of insulin; R53.1 Weakness; Z86.14 Personal history of Methicillin resistant Staphylococcus aureus infection; N40.0 Benign prostatic hyperplasia without lower urinary tract symptoms; E83.42 Hypomagnesemia
CPT/HCPCS: 36415; 70450; 71045; 80048; 80053; 80061; 80299; 80307; 80329; 81003; 82140; 82270; 82378; 82607; 82746; 82962; 83540; 83550; 83735; 83880; 84100; 84439; 84443; 84484; 85025; 85610; 85730; 87081; 93005; 93306; 99285; J1815

== ENCOUNTER 2018-09-24 12:39 | Inpatient (IN) | payer MEDICARE, MEDICAID ==
[~2018-09-24] VITALS: Ht 177.8 cm; Wt 57.7 kg
[~2018-09-24 12:39] MED LIST changes: +DEPAKENE250 MG ORAL; +DOCUSATE SODIU100 M2 ORAL; +FOLIC ACID1 M1 PO; +LIPITOR10 MG ORAL; +LORAZEPAM2 MG/1 M3 IV; +MORPHINE SU4 MG/1 ML IV; +PCA MORPHINE1 MG/ML IV; +TYLENOL EXTRA500 MG ORAL; +TYLENOL325 M1 PO; +ZYPREXA5 MG ORAL
[2018-09-24 12:45] VITALS: BP 141/87
--- NOTE | 2018-09-24 12:45 | NUR ---
ED Nurse Note: PT BROUGHT IN BY AMBULANCE FROM [facility]. AOX2 - BASELINE PER EMS. PER EMS, PT IS BEING SENT OVER BY FACILITY DUE TO VOMITING X 3 DAYS AGO. ACTIVE BOWEL SOUNDS IN ALL QUADRANTS. ABDOMEN NONDISTENDED AND NONTENDER TO PALPATION. OF NOTE, PT PRESENTS WITH CONTRACTURES TO BILATERAL LOWER EXTREMITIES AND LEFT UPPER EXTREMITY. SKIN INTACT.
--- NOTE | 2018-09-24 12:46 | NUR ---
ED Nurse Note: ON ARRIVAL, PT O2 SAT 88% ON RA. PT PLACED ON 3L O2 VIA NASAL CANNULA. RR24 @ 98% O2 SATURATION ON 3L.
[2018-09-24 13:39] LABS: BASOPHILS % (AUTO) 0.7 % (0.0-2.0); EOSINOPHILS % (AUTO) 0.2 % (0.0-3.0); HEMATOCRIT 36.5 % (42.0-52.0); HEMOGLOBIN 11.8 G/DL (14.2-18.0); LYMPHOCYTES % (AUTO) 18.8 % (20.0-45.0); MEAN CORPUSCULAR VOLUME 91 FL (80-99); MONOCYTES % (AUTO) 8.6 % (1.0-10.0); NEUTROPHILS % (AUTO) 71.8 % (45.0-75.0); PLATELET COUNT 291 K/UL (150-450); RED BLOOD COUNT 4.03 M/UL (4.70-6.10); RED CELL DISTRIBUTION WIDTH 13.5 % (11.6-14.8); WHITE BLOOD COUNT 11.4 K/UL (4.8-10.8)
[2018-09-24 13:44] LABS: ANION GAP 12 mmol/L (5-15); BLOOD UREA NITROGEN 38 mg/dL (7-18); CALCIUM 9.5 MG/DL (8.5-10.1); CARBON DIOXIDE 27 MMOL/L (21-32); CHLORIDE 99 MMOL/L (98-107); CREATININE 1.1 MG/DL (0.55-1.30); POTASSIUM 4.3 MMOL/L (3.5-5.1); SODIUM 138 MMOL/L (136-145)
[2018-09-24 13:55] LABS: ALANINE AMINOTRANSFERASE 10 U/L (12-78); ALBUMIN 3.2 G/DL (3.4-5.0); ALBUMIN/GLOBULIN RATIO 0.6 (1.0-2.7); ALKALINE PHOSPHATASE 69 U/L (46-116); ASPARTATE AMINO TRANSFERASE 16 U/L (15-37); BILIRUBIN,TOTAL 0.4 MG/DL (0.2-1.0)
--- NOTE | 2018-09-24 14:17 | Diagnostic Imaging Report ---
Indication: Cough Technique: One view of the chest Comparison: 06/09/2018 Findings: Calcifications are seen in the left pulmonary hilar region. The lungs and pleural spaces are clear. The heart size is normal. No significant interim change Impression: No acute process
[2018-09-24 14:24] LABS: APPEARANCE,URINE CLEAR; BILIRUBIN, URINE NEGATIVE (NEGATIVE); GLUCOSE, URINE (UA) 3+ (NEGATIVE); KETONES,URINE 3+ (NEGATIVE); LEUKOCYTE ESTERASE ,URINE 1+ (NEGATIVE); NITRITE,URINE NEGATIVE (NEGATIVE); PH,URINE 6 (4.5-8.0); PROTEIN,URINE 1+ (NEGATIVE); UROBILINOGEN,URINE 4 MG/DL (0.0-1.0)
[2018-09-24 14:31] LABS: COLOR,URINE YELLOW
[2018-09-24 14:45] VITALS: BP 149/79
--- NOTE | 2018-09-24 14:52 | Emergency Room Report ---
History of Present Illness General Chief Complaint: Vomiting Source: Medical Record, EMS Present Illness HPI 67-year-old male presents ED for evaluation. Brought in by EMS for evaluation. Coming from [facility] facility. Has not eaten and has had vomiting for the last 3 days. Increasingly weak. Upon arrival patient denies any abdominal pain. Denies any fevers or chills. Denies chest pain or shortness of breath. No other aggravating relieving factors. Denies any associated symptoms Allergies: Coded Allergies: No Known Allergies (Unverified , 01/05/13) Patient History Past Medical History: DM, HTN, COPD, CVA/TIA, seizures Past Surgical History: none Pertinent Family History: none Social History: Denies: smoking, alcohol use, drug use Immunizations: UTD Reviewed Nursing Documentation: PMH: Agreed; PSxH: Agreed Nursing Documentation-PMH Hx Cardiac Problems: Yes Hx Hypertension: Yes Hx COPD: Yes Hx Diabetes: Yes Hx Cancer: No Hx Gastrointestinal Problems: Yes Hx Neurological Problems: Yes Hx Cerebrovascular Accident: Yes - CVA WITH LEFT SIDE WEAKNESS Hx Seizures: Yes Hx Epilepsy: Yes Hx Speech Problem: Yes Hx Dysphasia: Yes Review of Systems All Other Systems: negative except mentioned in HPI Physical Exam Vital Signs Date Time Temp Pulse Resp B/P (MAP) Pulse Ox O2 Delivery O2 Flow Rate FiO2 09/24/18 12:40 97.9 82 20 117/76 83 Room Air 09/24/18 12:45 3.0 Sp02 EP Interpretation: reviewed, normal General Appearance: no apparent distress, alert, GCS 15, non-toxic Head: normocephalic, atraumatic Eyes: bilateral eye normal inspection, bilateral eye PERRL ENT: hearing grossly normal, normal pharynx, no angioedema, normal voice Neck: full range of motion, supple/symm/no masses Respiratory: chest non-tender, lungs clear, normal breath sounds, speaking full sentences Cardiovascular #1: regular rate, rhythm, no edema Cardiovascular #2: 2+ carotid (R), 2+ carotid (L), 2+ radial (R), 2+ radial (L) , 2+ dorsalis pedis (R), 2+ dorsalis pedis (L) Gastrointestinal: normal bowel sounds, non tender, soft, non-distended, no guarding, no rebound Rectal: deferred Genitourinary: normal inspection, no CVA tenderness Musculoskeletal: back normal, gait/station normal, normal range of motion, non- tender Neurologic: alert, oriented x3, responsive, motor strength/tone normal, sensory intact, speech normal Psychiatric: judgement/insight normal, memory normal, mood/affect normal, no suicidal/homicidal ideation Reflexes: 3+ bicep (R), 3+ bicep (L), 3+ tricep (R), 3+ tricep (L), 3+ knee (R) , 3+ knee (L) Skin: normal color, no rash, warm/dry, well hydrated Lymphatic: no adenopathy Medical Decision Making Diagnostic Impression: Primary Impression: Dehydration Additional Impressions: Failure to thrive Qualified Codes: R62.7 - Adult failure to thrive DM (diabetes mellitus) Qualified Codes: E13.8 - Other specified diabetes mellitus with unspecified complications ER Course Hospital Course 67-year-old male presenting to ED with generalized weakness, poor appetite, vomiting Differential diagnoses include: Pneumonia, UTI, sepsis, dehydration, failure to thrive Clinical course Patient placed on stretcher. On environmental monitoring technician with tachycardia. After initial history and physical, I ordered labs, IV fluids, EKG, chest x-ray, blood cultures, UA. Labs - no leukocytosis, hb/hct stable, glucose 395 no evidence of DKA, ua negative CXR - no acute process case discussed with Dr Carter and they agreed to admit patient to their service for further care and support I feel this is a highly complex case requiring extensive working including EKG/ Rhythm strip, Xray/CT/US, Blood/urine lab work, repeat exams while in ED, and administration of strong opiates/narcotics for pain control, admission to hospital or close patient follow up. Diagnosis - failure to thrive, dehydration, DM Patient admitted to floor in serious condition Labs Test 09/24/18 13:09 09/24/18 14:00 White Blood Count 11.4 K/UL (4.8-10.8) Red Blood Count 4.03 M/UL (4.70-6.10) Hemoglobin 11.8 G/DL (14.2-18.0) Hematocrit 36.5 % (42.0-52.0) Mean Corpuscular Volume 91 FL (80-99) Mean Corpuscular Hemoglobin 29.2 PG (27.0-31.0) Mean Corpuscular Hemoglobin Concent 32.2 G/DL (32.0-36.0) Red Cell Distribution Width 13.5 % (11.6-14.8) Platelet Count 291 K/UL (150-450) Mean Platelet Volume 6.4 FL (6.5-10.1) Neutrophils (%) (Auto) 71.8 % (45.0-75.0) Lymphocytes (%) (Auto) 18.8 % (20.0-45.0) Monocytes (%) (Auto) 8.6 % (1.0-10.0) Eosinophils (%) (Auto) 0.2 % (0.0-3.0) Basophils (%) (Auto) 0.7 % (0.0-2.0) Sodium Level 138 MMOL/L (136-145) Potassium Level 4.3 MMOL/L (3.5-5.1) Chloride Level 99 MMOL/L (98-107) Carbon Dioxide Level 27 MMOL/L (21-32) Anion Gap 12 mmol/L (5-15) Blood Urea Nitrogen 38 mg/dL (7-18) Creatinine 1.1 MG/DL (0.55-1.30) Estimat Glomerular Filtration Rate > 60 mL/min (>60) Glucose Level 359 MG/DL (74-106) Lactic Acid Level 1.70 mmol/L (0.4-2.0) Calcium Level 9.5 MG/DL (8.5-10.1) Total Bilirubin 0.4 MG/DL (0.2-1.0) Aspartate Amino Transf (AST/SGOT) 16 U/L (15-37) Alanine Aminotransferase (ALT/SGPT) 10 U/L (12-78) Alkaline Phosphatase 69 U/L (46-116) Pro-B-Type Natriuretic Peptide 120 pg/mL (0-125) Total Protein 8.5 G/DL (6.4-8.2) Albumin 3.2 G/DL (3.4-5.0) Globulin 5.3 g/dL Albumin/Globulin Ratio 0.6 (1.0-2.7) Urine Color Yellow Urine Appearance Clear Urine pH 6 (4.5-8.0) Urine Specific [place] 1.015 (1.005-1.035) Urine Protein 1+ (NEGATIVE) Urine Glucose (UA) 3+ (NEGATIVE) Urine Ketones 3+ (NEGATIVE) Urine Blood 3+ (NEGATIVE) Urine Nitrite Negative (NEGATIVE) Urine Bilirubin Negative (NEGATIVE) Urine Urobilinogen 4 MG/DL (0.0-1.0) Urine Leukocyte Esterase 1+ (NEGATIVE) Urine RBC 5-10 /HPF (0 - 0) Urine WBC 0-2 /HPF (0 - 0) Urine Squamous Epithelial Cells Occasional /LPF Urine Bacteria Occasional /HPF (NONE) Chest X-Ray Diagnostic Results Chest X-Ray Diagnostic Results : Chest X-Ray Ordered: Yes # of Views/Limited/Complete: 1 View Indication: Other EP Interpretation: Yes Interpretation: no consolidation, no effusion, no pneumothorax, no acute cardiopulmonary disease Impression: No acute disease Electronically Signed by: Electronically signed by Lowell Kiser MD Last Vital Signs Date Time Temp Pulse Resp B/P (MAP) Pulse Ox O2 Delivery O2 Flow Rate FiO2 09/24/18 12:45 80 24 Nasal Cannula 3.0 09/24/18 12:45 98.2 141/87 98 Status: improved Disposition: ADMITTED INPATIENT Condition: Serious Referrals: Nura Carter DO (PCP) Lowell Kiser MD Sep 24, 2018 14:52
[2018-09-24] MEDS ORDERED: Morphine Sulfate 2mg/ml Inj(IV/IM USE ONLY) IVP PRN (15:30)
[2018-09-24] MEDS ORDERED: Mylanta II UD 30ml ORAL PRN (15:30)
[2018-09-24] MEDS ORDERED: Ketorolac 30mg Inj IV PRN (15:30)
[2018-09-24] MEDS ORDERED: Albuterol/Ipratropium 3ml neb HHN PRN (15:30)
[2018-09-24] MEDS ORDERED: Nitroglycerin Subl 0.4mg tab SL PRN (15:45)
--- NOTE | 2018-09-24 16:20 | NUR ---
ED Nurse Note: [facility] CALLED FOR PT TRANSFER. PER CHARGE, RN NOT ASSIGNED. WILL CALL BACK IN 5 MINUTES.
--- NOTE | 2018-09-24 16:29 | NUR ---
ED Nurse Note: CALLED [facility] FOR PT TRANSFER. PER MARGE CHOUDHARY, STILL NO RN ASSIGNED TO PT AND CHARGE NURSE STEPPED AWAY. WILL CALL BACK.
--- NOTE | 2018-09-24 16:43 | NUR ---
ED Nurse Note: [facility] CALLED FOR PT TRANSFER. REPORT GIVEN TO MARGE THORPE. PER RN, ROOM IS STILL BEING CLEANED AND WILL TAKE AN ADDITIONAL 15 MINUTES. PT TO BE TRANSFERRED AT 1700.
--- NOTE | 2018-09-24 17:04 | NUR ---
ED Nurse Note: PT TAKEN UP TO [facility] VIA GURNEY WITH ALL BELONGINGS ACCOMPANIED BY PRIMARY, RN. VSS.
[2018-09-24] MEDS: NovoLOG Insulin Flexpen SUBQ SCH ×2 (17:30→21:00)
--- NOTE | 2018-09-24 17:32 | Consultation ---
History of Present Illness General Date patient seen: Sep 24, 2018 Chief Complaint: Vomiting Present Illness HPI 67 y/o M with hx of DM2, HTN, COPD, CVA/TIA w/ L side weakness, seizure disorder , SNF resident presents to ED on 09/24 with 3 days of vomiting, poor PO intake, weakness. Denied abd pain, f/c, CP, SOB upon admission. Allergies: Coded Allergies: No Known Allergies (Unverified , 01/05/13) Medication History Scheduled Atorvastatin Calcium* (Lipitor*), 10 MG ORAL BEDTIME, (Reported) Buspirone Hcl* (Buspar*), 5 MG ORAL BID, (Reported) Docusate Sodium (Docusate Sodium), 100 MG ORAL TWICE A DAY, (Reported) Docusate Sodium* (Docusate Sodium*), 100 MG ORAL DAILY, (Reported) Folic Acid (Folic Acid), 1 MG PO DAILY, (Reported) Folic Acid (Folic Acid), 1 MG PO DAILY, (Reported) Heparin Sod (Porcine) (Heparin Sodium*), 5,000 UNITS SUBQ EVERY 12 HOURS, ( Reported) Levetiracetam* (Levetiracetam*), 500 MG ORAL Q12HR, (Reported) Morphine Sulfate (Morphine Sulfate), 0.5 MG IV Q4HR, (Reported) Olanzapine* (Zyprexa*), 5 MG ORAL BID, (Reported) Valproic Acid (Depakene), 500 MG ORAL BID, (Reported) Scheduled PRN Insulin Aspart (Novolog), 100 UNIT SQ AC+HS PRN for Per rx protocol, (Reported) Lorazepam (Lorazepam), 0.5 MG IV Q4H PRN for For Anxiety, (Reported) Magnesium Hydroxide* (Milk Of Magnesia*), 30 ML ORAL HS PRN for Constipation, ( Reported) Ondansetron* (Zofran*), 4 MG IV Q6H PRN for Nausea & Vomiting, (Reported) Polyethylene Glycol 3350* (Polyethylene Glycol 3350*), 17 GM ORAL BEDTIME PRN for Constipation, (Reported) Zolpidem Tartrate* (Ambien*), 5 MG ORAL BEDTIME PRN for Insomnia, (Reported) Miscellaneous Medications Insulin Aspart (Novolog), 100 UNIT SQ, (Reported) Insulin Aspart (Novolog Flexpen), (Reported) Patient History Healthcare decision maker Resuscitation status Advanced Directive on File Patient History Narrative Pmhx: as above Shx: Denies: smoking, alcohol use, drug use Fhx: non contributory Physical Exam Physical Exam Narrative General Appearance: no apparent distress, alert HEENT: bilateral eye normal inspection, bilateral eye PERRL normal pharynx Neck: full range of motion, supple/symm/no masses Respiratory: chest non-tender, lungs clear, normal breath sounds, speaking full sentences Cardiovascular regular rate, rhythm, no edema Gastrointestinal: normal bowel sounds, non tender, soft, non-distended, no guarding, no rebound Genitourinary: normal inspection, no CVA tenderness Musculoskeletal: back normal, gait/station normal, normal range of motion, non- tender Skin: normal color, no rash, warm/dry, well hydrated Last 24 Hour Vital Signs Date Time Temp Pulse Resp B/P (MAP) Pulse Ox O2 Delivery O2 Flow Rate FiO2 09/24/18 17:02 98.3 73 14 146/74 96 3.0 09/24/18 14:45 98.4 73 17 149/79 97 Nasal Cannula 3.0 09/24/18 12:45 80 24 Nasal Cannula 3.0 09/24/18 12:45 98.2 80 24 141/87 98 Room Air 3.0 09/24/18 12:40 97.9 82 20 117/76 83 Room Air Laboratory Tests Test 09/24/18 13:09 09/24/18 14:00 White Blood Count 11.4 K/UL (4.8-10.8) H Red Blood Count 4.03 M/UL (4.70-6.10) L Hemoglobin 11.8 G/DL (14.2-18.0) L Hematocrit 36.5 % (42.0-52.0) L Mean Corpuscular Volume 91 FL (80-99) Mean Corpuscular Hemoglobin 29.2 PG (27.0-31.0) Mean Corpuscular Hemoglobin Concent 32.2 G/DL (32.0-36.0) Red Cell Distribution Width 13.5 % (11.6-14.8) Platelet Count 291 K/UL (150-450) Mean Platelet Volume 6.4 FL (6.5-10.1) L Neutrophils (%) (Auto) 71.8 % (45.0-75.0) Lymphocytes (%) (Auto) 18.8 % (20.0-45.0) L Monocytes (%) (Auto) 8.6 % (1.0-10.0) Eosinophils (%) (Auto) 0.2 % (0.0-3.0) Basophils (%) (Auto) 0.7 % (0.0-2.0) Sodium Level 138 MMOL/L (136-145) Potassium Level 4.3 MMOL/L (3.5-5.1) Chloride Level 99 MMOL/L (98-107) Carbon Dioxide Level 27 MMOL/L (21-32) Anion Gap 12 mmol/L (5-15) Blood Urea Nitrogen 38 mg/dL (7-18) H Creatinine 1.1 MG/DL (0.55-1.30) Estimat Glomerular Filtration Rate > 60 mL/min (>60) Glucose Level 359 MG/DL (74-106) H Lactic Acid Level 1.70 mmol/L (0.4-2.0) Calcium Level 9.5 MG/DL (8.5-10.1) Total Bilirubin 0.4 MG/DL (0.2-1.0) Aspartate Amino Transf (AST/SGOT) 16 U/L (15-37) Alanine Aminotransferase (ALT/SGPT) 10 U/L (12-78) L Alkaline Phosphatase 69 U/L (46-116) Pro-B-Type Natriuretic Peptide 120 pg/mL (0-125) Total Protein 8.5 G/DL (6.4-8.2) H Albumin 3.2 G/DL (3.4-5.0) L Globulin 5.3 g/dL Albumin/Globulin Ratio 0.6 (1.0-2.7) L Urine Color Yellow Urine Appearance Clear Urine pH 6 (4.5-8.0) Urine Specific [place] 1.015 (1.005-1.035) Urine Protein 1+ (NEGATIVE) H Urine Glucose (UA) 3+ (NEGATIVE) H Urine Ketones 3+ (NEGATIVE) H Urine Blood 3+ (NEGATIVE) H Urine Nitrite Negative (NEGATIVE) Urine Bilirubin Negative (NEGATIVE) Urine Urobilinogen 4 MG/DL (0.0-1.0) H Urine Leukocyte Esterase 1+ (NEGATIVE) H Urine RBC 5-10 /HPF (0 - 0) H Urine WBC 0-2 /HPF (0 - 0) Urine Squamous Epithelial Cells Occasional /LPF Urine Bacteria Occasional /HPF (NONE) Height (Feet): 5 Height (Inches): 10.00 Weight (Pounds): 150 Medications Current Medications Medications (Trade) Dose Ordered Sig/Kun Route PRN Reason Start Time Stop Time Status Last Admin Dose Admin Acetaminophen (Tylenol) 650 mg Q4H PRN ORAL T>100.5 09/24/18 15:30 10/24/18 15:29 Al Hydroxide/Mg Hydroxide (Mylanta II) 30 ml Q6H PRN ORAL dyspepsia 09/24/18 15:30 10/24/18 15:29 Albuterol/ Ipratropium (Albuterol/ Ipratropium) 3 ml Q4H PRN HHN Shortness of Breath 09/24/18 15:30 09/29/18 15:29 Buspirone HCl (Buspar) 5 mg BID ORAL 09/24/18 18:00 10/24/18 17:59 Clonidine HCl (Catapres Tab) 0.1 mg Q4H PRN ORAL SBP > 160mmHg 09/24/18 15:30 10/24/18 15:29 Dextrose (Dextrose 50%) 25 ml Q30M PRN IV Hypoglycemia 09/24/18 15:30 10/24/18 15:29 Dextrose (Dextrose 50%) 50 ml Q30M PRN IV Hypoglycemia 09/24/18 15:30 10/24/18 15:29 Folic Acid (Folate) 1 mg DAILY ORAL 09/25/18 09:00 10/25/18 08:59 Heparin Sodium (Porcine) (Heparin 5000 units/ml) 5,000 units EVERY 12 HOURS SUBQ 09/24/18 21:00 10/24/18 20:59 Insulin Aspart (NovoLOG) BEFORE MEALS AND HS SUBQ 09/24/18 17:30 10/24/18 17:29 Ketorolac Tromethamine (Toradol 30mg) 30 mg Q6H PRN IV Moderate Pain (Pain Scale 4-6) 09/24/18 15:30 09/29/18 15:29 Levetiracetam (Keppra) 500 mg Q12HR ORAL 09/24/18 21:00 10/24/18 20:59 Morphine Sulfate (Morphine Sulfate) 2 mg Q4H PRN IVP Severe Pain (Pain Scale 7-10) 09/24/18 15:30 10/01/18 15:29 Nitroglycerin (Ntg) 0.4 mg Q5MIN X 3 DOSES PRN SL Prn Chest Pain 09/24/18 15:45 10/24/18 15:44 Olanzapine (ZyPREXA) 5 mg Q12HR ORAL 09/24/18 21:00 10/24/18 20:59 Ondansetron HCl (Zofran) 4 mg Q6H PRN IVP Nausea & Vomiting 09/24/18 15:30 10/24/18 15:29 Polyethylene Glycol (Miralax) 17 gm HSPRN PRN ORAL Constipation 09/24/18 21:00 10/24/18 20:59 Sodium Chloride 1,000 ml @ 100 mls/hr Q10H IVLG 09/24/18 17:00 10/24/18 16:59 Temazepam (Restoril) 15 mg HSPRN PRN ORAL Insomnia 09/24/18 21:00 10/01/18 20:59 Valproic Acid (Depakene) 500 mg BID ORAL 09/24/18 18:00 10/24/18 17:59 Assessment/Plan Assessment/Plan Abx: None Assessment: Vomiting- ?gastroenteritis vs PUD vs other- r/o flu FTT -CXR: No acute process Afebrile Mild leukocytosis, suspect reactive -u/a neg DM2 HTN COPD CVA/TIA w/ L side weakness seizure disorder SNF resident Plan: -Continue to monitor off abx unless febrile, increasing WBC and/or HD unstable -f/u cx -Monitor CBC/CMP, temperatures -aspiration precautions -GI eval Thank you for this consultation. Will continue to follow along with you. Discussed with Shell Lozano M.D. Sep 24, 2018 17:32
[2018-09-24] MEDS: BusPIRone 5mg Tab ORAL SCH (17:42)
--- NOTE | 2018-09-24 18:40 | NUR ---
NURSE NOTES: Patient received from ER belongings reviewed. No belongings, nasal cannula 3L/min. Stable condition, no signs of respiratory distress. Denies pain.
--- NOTE | 2018-09-24 19:41 | NUR ---
HAND-OFF: Report given to Praveen BIRD.
[2018-09-24 20:00] VITALS: BP 120/75
--- NOTE | 2018-09-24 20:00 | NUR ---
NURSE NOTES: Patient received in bed, awake, verbal, repositioned for comfort. IV is intact and patent, skin is intact. HOB elevated, O2 via NC at 2LPM. Patient keep disrobing himself, educated regarding need for hospital gown, patient unable to comprehend. Will continue to re-apply hospital gown on patient during shift.
[2018-09-24] MEDS ORDERED: Miralax 17gm pkt ORAL PRN (21:00)
[2018-09-24] MEDS: Heparin 5000 units/ml inj SUBQ SCH (21:13)
--- NOTE | 2018-09-24 21:45 | History and Physical Report ---
DATE OF ADMISSION: 09/24/2018 CONSULTANTS: 1. Mey Latham M.D. 2. Berto Umana M.D. 3. Dr. Medrano. 4. James Stephens M.D. 5. Parish Singh M.D. 6. Chetan Barrientos M.D. CHIEF COMPLAINT: Failure to thrive, weakness. UTI, sepsis, leukocytosis, diabetes, and hyperglycemia. HISTORY: This is a 67-year-old male from [facility], who presents with past week of gradually increased lethargy and failure to thrive. The patient came to [place] ER, diagnosed with urinary tract infection, sepsis, failure to thrive, hyperglycemia, and being admitted shortly. Currently, slightly confused, O2 NC, in bed, not talking much. REVIEW OF SYSTEMS: Unavailable. PAST MEDICAL HISTORY: Encephalopathy, chronic obstructive pulmonary disease, malnutrition, anemia, hypertension, seizure, diabetes, CVA, and chronic obstructive pulmonary disease. PAST SURGICAL HISTORY: Unknown. MEDICATIONS: So far is Zofran and intravenous fluids. We will obtain the list shortly. ALLERGIES: Denies. SOCIAL HISTORY: Unable to obtain secondary to the patient's condition . PHYSICAL EXAMINATION: GENERAL: Calm in bed, lethargic, O2 NC, slight short of breath, and oriented x1. VITAL SIGNS: Temperature is 98 degrees, pulse 80, respiration 24, and blood pressure 141/87. CARDIOVASCULAR: No murmurs. LUNGS: Poor air exchange. ABDOMEN: Bowel sounds distant. EXTREMITIES: Show no cyanosis, clubbing, or edema. NEUROLOGIC: The patient moves all extremities, slightly weak. LABORATORY AND DIAGNOSTIC DATA: Labs, at this time, show urinalysis 1+ leukocyte esterase. BMP shows BUN 38 and glucose 359. ALT 10. Albumin 3.2. CBC shows white count 11.4, hemoglobin and hematocrit is 11.8 and 36, and platelets 391,000. ASSESSMENT: 1. Failure to thrive. 2. UTI. 3. Sepsis. 4. Leukocytosis. 5. Weakness. 6. Anemia. 7. Diabetes. 8. Hyperglycemia. 9. History of encephalopathy. 10. Chronic obstructive pulmonary disease. 11. Malnutrition. 12. Hypertension. 13. Seizure. 14. CVA. PLAN: 1. O2 and pulmonary treatment. 2. Antibiotics per Infectious Disease. 3. Blood pressure and blood sugar control. 4. PT and dietary evaluation. 5. CBC and BMP in the morning. 6. Resume home medications. 7. We will continue to follow this patient. Nura Carter D.O. DR: ALEJA JOB#: [id number] CC:
[2018-09-25] VITALS: BP 120/66
--- NOTE | 2018-09-25 01:00 | NUR ---
NURSE NOTES: Patient noted with very productive cough. Patient orally suctioned, still with audible congestion, nasotracheally suctioned with help of RT. Pt appears to breath better, will continue pt on o2 and will monitor.
[2018-09-25 04:00] VITALS: BP 121/72
[2018-09-25] MEDS: NovoLOG Insulin Flexpen SUBQ SCH ×4 (05:55→21:24)
[2018-09-25 06:49] LABS: BASOPHILS % (AUTO) 0.5 % (0.0-2.0); EOSINOPHILS % (AUTO) 0.7 % (0.0-3.0); HEMATOCRIT 30.7 % (42.0-52.0); HEMOGLOBIN 9.9 G/DL (14.2-18.0); LYMPHOCYTES % (AUTO) 20.9 % (20.0-45.0); MEAN CORPUSCULAR VOLUME 91 FL (80-99); MONOCYTES % (AUTO) 9.3 % (1.0-10.0); NEUTROPHILS % (AUTO) 68.6 % (45.0-75.0); PLATELET COUNT 260 K/UL (150-450); RED BLOOD COUNT 3.37 M/UL (4.70-6.10); RED CELL DISTRIBUTION WIDTH 13.7 % (11.6-14.8); WHITE BLOOD COUNT 9.1 K/UL (4.8-10.8)
--- NOTE | 2018-09-25 07:18 | NUR ---
HAND-OFF: Report given to Kristie BIRD.
[2018-09-25 07:41] LABS: ALANINE AMINOTRANSFERASE 9 U/L (12-78); ALBUMIN 2.7 G/DL (3.4-5.0); ALBUMIN/GLOBULIN RATIO 0.6 (1.0-2.7); ALKALINE PHOSPHATASE 51 U/L (46-116); ANION GAP 9 mmol/L (5-15); ASPARTATE AMINO TRANSFERASE 10 U/L (15-37); BILIRUBIN,TOTAL 0.4 MG/DL (0.2-1.0); BLOOD UREA NITROGEN 22 mg/dL (7-18); CALCIUM 8.3 MG/DL (8.5-10.1); CARBON DIOXIDE 27 MMOL/L (21-32); CHLORIDE 107 MMOL/L (98-107); CHOLESTEROL 139 MG/DL (< 200); CREATININE 0.9 MG/DL (0.55-1.30); HDL CHOLESTEROL 39 MG/DL (40-60); POTASSIUM 3.5 MMOL/L (3.5-5.1); SODIUM 143 MMOL/L (136-145); TRIGLYCERIDES 111 MG/DL (30-150)
[2018-09-25 08:00] VITALS: BP 114/66
--- NOTE | 2018-09-25 08:00 | NUR ---
NURSE NOTES: RECEIVED PATIENT IN BED, RESTING AND RESPONSIVE TO LIGHT SHAKING. IV INTACT. NO SIGNS OF RESPIRATORY DISTRESS, PATIENT ON NC 2L. BED IN LOWEST POSITION, CALL LIGHT WITHIN REACH. WILL CONTINUE TO MONITOR.
--- NOTE | 2018-09-25 08:45 | Consultation ---
DATE OF CONSULTATION: 09/25/2018 ENDOCRINOLOGY CONSULTATION CONSULTING PHYSICIAN: Chetan Barrientos M.D. REFERRING PHYSICIAN: Nura Carter D.O. REASON FOR CONSULTATION: Diabetes management. HISTORY OF PRESENT ILLNESS: The patient is a 67-year-old male from [facility], presented with increased lethargy, failure to thrive, sepsis, and diabetes, out of control. Endocrinology was consulted in order to assist in the management of diabetes. PAST MEDICAL HISTORY: 1. Encephalopathy. 2. COPD. 3. Malnutrition. 4. Anemia. 5. Hypertension. 6. Seizure. 7. Diabetes. 8. CVA. PAST SURGICAL HISTORY: Unknown. MEDICATIONS: Reviewed and reconciled. ALLERGIES TO MEDICATIONS: None. SOCIAL HISTORY: No smoking, alcohol, or drug use. Resident of a shelter facility. REVIEW OF SYSTEMS: Unobtainable. PHYSICAL EXAMINATION: GENERAL: The patient is lying down calm in bed. VITAL SIGNS: Blood pressure 141/87, pulse 80, temperature of 98, respiratory rate of 20. HEENT: Pupils are equal and reactive to light and accommodation. Sclerae anicteric. NECK: No JVD. HEART: Regular. LUNGS: Clear. ABDOMEN: Positive bowel sounds. EXTREMITIES: No clubbing, cyanosis, or edema. LABORATORY VALUES: WBC 11, hemoglobin 11, hematocrit 36, platelets of 291. Sodium 138, potassium 4.3, chloride 99, bicarbonate 27, BUN 38, creatinine 1.1, and glucose 359. Lactic acid 1.7. DIAGNOSES: 1. Diabetes, out of control. 2. Sepsis. 3. Encephalopathy. PLAN: 1. Start Levemir 10 units daily. 2. NovoLog sliding scale before meals and at bedtime. 3. Further adjustment according to blood glucose values. I will follow the patient closely during hospital stay. Thank you, Dr. Carter, for the courtesy of this consultation. Chetan Barrientos M.D. DR: MARGE/BEST JOB#: [id number] CC: MASON
[2018-09-25] MEDS: BusPIRone 5mg Tab ORAL SCH ×3 (08:59→18:08)
[2018-09-25] MEDS: Heparin 5000 units/ml inj SUBQ SCH ×2 (09:02→21:23)
[2018-09-25] MEDS: Levemir Flexpen SUBQ SCH (09:03)
[2018-09-25] MEDS ORDERED: LORazepam 1mg tab ORAL PRN (09:15)
--- NOTE | 2018-09-25 09:16 | NUR ---
NURSE NOTES: Patient refusing all PO medications and breakfast. Attempted to awaken patient and patient arousable to shaking but drifts back to sleep. Tried to give patient orange juice and patient pushed orange juice off, spilling juice on bed. Continues to refuse PO meds as well. Dr. Latham made aware patient is refusing medications. Asked about changing keppra from PO to IV. Awaiting call back, will continue to monitor.
--- NOTE | 2018-09-25 10:12 | NUR ---
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 DEHYDRATION . FAILURE TO THRIVE VS:BP 141/87, P 80, T 98.2, RR 24, SpO2 98 on 3.0L NC WBC 11.4, RBC 4.03, BUN 38, URINE BLOOD 3+ CXR Findings: Calcifications are seen in the left pulmonary hilar region. IS:NS x1L IV ZOFRAN 4mg IVP ADMITTED TO MED/SURG DC PLAN: RETURN TO [facility]
[2018-09-25] MEDS: levETIRAcetam 500mg/NS100ml 100 ML IVPB SCH ×2 (10:46→21:23)
--- NOTE | 2018-09-25 11:06 | NUR ---
P.T Note: P.T consult received. P.T evaluation attempted however unable to perform due to patient is unarousable at this time. Will reattempt when/as appropriate. Conferred with RN.
--- NOTE | 2018-09-25 11:20 | GI Initial Consult Note ---
History of Present Illness General Date patient seen: Sep 25, 2018 Time patient seen: 11:14 Reason for Hospitalization: Vomiting Referring physician: FABIO GASTELUM Reason for Consultation: VOMITING Present Illness HPI 67-year-old male presents ED for evaluation. Brought in by EMS for evaluation. Coming from [facility] facility. Has not eaten and has had vomiting for the last 3 days. Increasingly weak. Upon arrival patient denies any abdominal pain. Denies any fevers or chills. Denies chest pain or shortness of breath. No other aggravating relieving factors. Denies any associated symptoms GI consulted for poor p.o. intake and vomiting for the past 3 days. ROS is limited, patient is alert and oriented x1 denies any pain at this time. Patient had a previous admission here in [facility] approximately 1.5 years ago for a passive ST evaluation.Labs reviewed; hemoglobin of 9.9, HG A1c of 8.8, no transaminitis. Unknown history of endoscopic colonoscopy. Home Meds Reported Medications Insulin Aspart (NOVOLOG) 100 Unit/1 Ml Cartridge, 100 UNIT SQ AC+HS PRN for Per rx protocol 06/13/18 Docusate Sodium (DOCUSATE SODIUM) 100 Mg Tablet, 100 MG ORAL TWICE A DAY for CONSTIPATION, #60 TAB 0 Refills 06/13/18 Zolpidem Tartrate* (AMBIEN*) 5 Mg Tablet, 5 MG ORAL BEDTIME PRN for Insomnia, TAB 06/13/18 Polyethylene Glycol 3350* (POLYETHYLENE GLYCOL 3350*) 17 Gm Powd.pack, 17 GM ORAL BEDTIME PRN for Constipation, PACKET 06/13/18 Ondansetron* (ZOFRAN*) 4 Mg/2 Ml Vial, 4 MG IV Q6H PRN for Nausea & Vomiting, VIAL 06/13/18 Morphine Sulfate (Morphine Sulfate) 4 Mg/1 Ml Syringe, 0.5 MG IV Q4HR for PAIN, EA 06/13/18 Lorazepam (Lorazepam) 2 Mg/1 Ml Syringe, 0.5 MG IV Q4H PRN for For Anxiety, EA 06/13/18 Valproic Acid (Depakene) 250 Mg Capsule, 500 MG ORAL BID, CAP 06/13/18 Olanzapine* (ZYPREXA*) 5 Mg Tablet, 5 MG ORAL BID, TAB 06/13/18 Folic Acid (Folic Acid) 1 Mg Tablet, 1 MG PO DAILY, TAB 06/13/18 Folic Acid (Folic Acid) 1 Mg Tablet, 1 MG PO DAILY, TAB 06/13/18 Atorvastatin Calcium* (LIPITOR*) 10 Mg Tablet, 10 MG ORAL BEDTIME, TAB 06/13/18 Insulin Aspart (Novolog Flexpen) 100 Unit/1 Ml Insuln.pen 09/27/17 Insulin Aspart (NOVOLOG) 100 Unit/1 Ml Cartridge, 100 UNIT SQ per sliding scale 09/27/17 Heparin Sod (Porcine) (HEPARIN SODIUM*) 5 000/1 Ml Vial, 5000 UNITS SUBQ EVERY 12 HOURS, VIAL 09/27/17 Docusate Sodium* (DOCUSATE SODIUM*) 100 Mg Capsule, 100 MG ORAL DAILY, CAP 09/23/17 Magnesium Hydroxide* (MILK OF MAGNESIA*) 400 Mg/5 Ml Oral.susp, 30 ML ORAL HS PRN for Constipation, ML 09/23/17 Levetiracetam* (LEVETIRACETAM*) 500 Mg Tablet, 500 MG ORAL Q12HR 04/13/17 Buspirone Hcl* (BUSPAR*) 10 Mg Tablet, 5 MG ORAL BID 05/18/16 Med list reviewed/reconciled: Yes Allergies: Coded Allergies: No Known Allergies (Unverified , 01/05/13) Patient History Limited by: medical condition History Provided By: Patient, Medical Record PMH Narrative Past Medical History: DM, HTN, COPD, CVA/TIA, seizures Past Surgical History: none Pertinent Family History: none Social History: Denies: smoking, alcohol use, drug use Immunizations: UTD Reviewed Nursing Documentation: PMH: Agreed; PSxH: Agreed Nursing Documentation-PMH Hx Cardiac Problems: Yes Hx Hypertension: Yes Hx COPD: Yes Hx Diabetes: Yes Hx Cancer: No Hx Gastrointestinal Problems: Yes Hx Neurological Problems: Yes 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8 G/DL (14.2-18.0) L 9.9 G/DL (14.2-18.0) L Hematocrit 36.5 % (42.0-52.0) L 30.7 % (42.0-52.0) L Mean Corpuscular Volume 91 FL (80-99) 91 FL (80-99) Mean Corpuscular Hemoglobin 29.2 PG (27.0-31.0) 29.5 PG (27.0-31.0) Mean Corpuscular Hemoglobin Concent 32.2 G/DL (32.0-36.0) 32.4 G/DL (32.0-36.0) Red Cell Distribution Width 13.5 % (11.6-14.8) 13.7 % (11.6-14.8) Platelet Count 291 K/UL (150-450) 260 K/UL (150-450) Mean Platelet Volume 6.4 FL (6.5-10.1) L 6.0 FL (6.5-10.1) L Neutrophils (%) (Auto) 71.8 % (45.0-75.0) 68.6 % (45.0-75.0) Lymphocytes (%) (Auto) 18.8 % (20.0-45.0) L 20.9 % (20.0-45.0) Monocytes (%) (Auto) 8.6 % (1.0-10.0) 9.3 % (1.0-10.0) Eosinophils (%) (Auto) 0.2 % (0.0-3.0) 0.7 % (0.0-3.0) Basophils (%) (Auto) 0.7 % (0.0-2.0) 0.5 % (0.0-2.0) Sodium Level 138 MMOL/L (136-145) 143 MMOL/L (136-145) Potassium Level 4.3 MMOL/L (3.5-5.1) 3.5 MMOL/L (3.5-5.1) Chloride Level 99 MMOL/L (98-107) 107 MMOL/L (98-107) Carbon Dioxide Level 27 MMOL/L (21-32) 27 MMOL/L (21-32) Anion Gap 12 mmol/L (5-15) 9 mmol/L (5-15) Blood Urea Nitrogen 38 mg/dL (7-18) H 22 mg/dL (7-18) H Creatinine 1.1 MG/DL (0.55-1.30) 0.9 MG/DL (0.55-1.30) Estimat Glomerular Filtration Rate > 60 mL/min (>60) > 60 mL/min (>60) Glucose Level 359 MG/DL (74-106) H 141 MG/DL (74-106) #H Lactic Acid Level 1.70 mmol/L (0.4-2.0) Calcium Level 9.5 MG/DL (8.5-10.1) 8.3 MG/DL (8.5-10.1) L Total Bilirubin 0.4 MG/DL (0.2-1.0) 0.4 MG/DL (0.2-1.0) Aspartate Amino Transf (AST/SGOT) 16 U/L (15-37) 10 U/L (15-37) L Alanine Aminotransferase (ALT/SGPT) 10 U/L (12-78) L 9 U/L (12-78) L Alkaline Phosphatase 69 U/L (46-116) 51 U/L (46-116) Pro-B-Type Natriuretic Peptide 120 pg/mL (0-125) Total Protein 8.5 G/DL (6.4-8.2) H 6.9 G/DL (6.4-8.2) Albumin 3.2 G/DL (3.4-5.0) L 2.7 G/DL (3.4-5.0) L Globulin 5.3 g/dL 4.2 g/dL Albumin/Globulin Ratio 0.6 (1.0-2.7) L 0.6 (1.0-2.7) L Urine Color Yellow Urine Appearance Clear Urine pH 6 (4.5-8.0) Urine Specific [place] 1.015 (1.005-1.035) Urine Protein 1+ (NEGATIVE) H Urine Glucose (UA) 3+ (NEGATIVE) H Urine Ketones 3+ (NEGATIVE) H Urine Blood 3+ (NEGATIVE) H Urine Nitrite Negative (NEGATIVE) Urine Bilirubin Negative (NEGATIVE) Urine Urobilinogen 4 MG/DL (0.0-1.0) H Urine Leukocyte Esterase 1+ (NEGATIVE) H Urine RBC 5-10 /HPF (0 - 0) H Urine WBC 0-2 /HPF (0 - 0) Urine Squamous Epithelial Cells Occasional /LPF Urine Bacteria Occasional /HPF (NONE) Hemoglobin A1c 8.8 % (4.3-6.0) H Triglycerides Level 111 MG/DL (30-150) Cholesterol Level 139 MG/DL (< 200) LDL Cholesterol 76 mg/dL (<100) HDL Cholesterol 39 MG/DL (40-60) L Cholesterol/HDL Ratio 3.6 (3.3-4.4) Thyroid Stimulating Hormone (TSH) 1.535 uiU/mL (0.358-3.740) General Appearance: well appearing, no apparent distress, alert Head: normocephalic EENT: PERRL/EOMI, normal ENT inspection Neck: supple Respiratory: normal breath sounds, no respiratory distress Cardiovascular: normal rate Gastrointestinal: normal inspection, non tender, soft, normal bowel sounds, non -distended Rectal: deferred Genitourinary: deferred Musculoskeletal: normal inspection, back normal Neurologic: normal inspection, alert, oriented x3, responsive Psychiatric: normal inspection, judgement/insight normal, memory normal Skin: normal inspection, normal color, no rash, warm/dry, palpation normal, well hydrated Lymphatic: normal inspection, no adenopathy Current Medications Current Medications Medications (Trade) Dose Ordered Sig/Kun Route PRN Reason Start Time Stop Time Status Last Admin Dose Admin Acetaminophen (Tylenol) 650 mg Q4H PRN ORAL T>100.5 09/24/18 15:30 10/24/18 15:29 Al Hydroxide/Mg Hydroxide (Mylanta II) 30 ml Q6H PRN ORAL dyspepsia 09/24/18 15:30 10/24/18 15:29 Albuterol/ Ipratropium (Albuterol/ Ipratropium) 3 ml Q4H PRN HHN Shortness of Breath 3/18/19 15:30 09/29/18 15:29 Buspirone HCl (Buspar) 5 mg BID ORAL 09/24/18 18:00 10/24/18 17:59 09/24/18 17:42 Clonidine HCl (Catapres Tab) 0.1 mg Q4H PRN ORAL SBP > 160mmHg 09/24/18 15:30 10/24/18 15:29 Dextrose (Dextrose 50%) 25 ml Q30M PRN IV Hypoglycemia 09/25/18 06:30 10/25/18 06:29 Dextrose (Dextrose 50%) 50 ml Q30M PRN IV Hypoglycemia 09/25/18 06:30 10/25/18 06:29 Folic Acid (Folate) 1 mg DAILY ORAL 09/25/18 09:00 10/25/18 08:59 Heparin Sodium (Porcine) (Heparin 5000 units/ml) 5,000 units EVERY 12 HOURS SUBQ 09/24/18 21:00 10/24/18 20:59 09/25/18 09:02 Insulin Aspart (NovoLOG) BEFORE MEALS AND HS SUBQ 09/24/18 17:30 10/24/18 17:29 09/25/18 05:55 Insulin Detemir (Levemir) 10 units DAILY SUBQ 09/25/18 09:00 10/25/18 08:59 09/25/18 09:03 Ketorolac Tromethamine (Toradol 30mg) 30 mg Q6H PRN IV Moderate Pain (Pain Scale 4-6) 09/24/18 15:30 09/29/18 15:29 Levetiracetam 100 ml @ 400 mls/hr Q12HR IVPB 09/25/18 10:30 10/25/18 10:29 09/25/18 10:46 Lorazepam (Ativan) 1 mg Q6H PRN ORAL For Anxiety 09/25/18 09:15 10/02/18 09:14 Morphine Sulfate (Morphine Sulfate) 2 mg Q4H PRN IVP Severe Pain (Pain Scale 7-10) 09/24/18 15:30 10/01/18 15:29 Nitroglycerin (Ntg) 0.4 mg Q5MIN X 3 DOSES PRN SL Prn Chest Pain 09/24/18 15:45 10/24/18 15:44 Olanzapine (ZyPREXA) 5 mg Q12HR ORAL 09/24/18 21:00 10/24/18 20:59 09/24/18 21:11 Ondansetron HCl (Zofran) 4 mg Q6H PRN IVP Nausea & Vomiting 09/24/18 15:30 10/24/18 15:29 Polyethylene Glycol (Miralax) 17 gm HSPRN PRN ORAL Constipation 09/24/18 21:00 10/24/18 20:59 Sodium Chloride 1,000 ml @ 100 mls/hr Q10H IVLG 09/24/18 17:00 10/24/18 16:59 09/25/18 03:00 Temazepam (Restoril) 15 mg HSPRN PRN ORAL Insomnia 09/24/18 21:00 10/01/18 20:59 Valproic Acid (Depakene) 500 mg BID ORAL 09/24/18 18:00 10/24/18 17:59 09/24/18 17:42 GI: Plan Problems: (1) Gastroparesis (2) Acute encephalopathy (3) Failure to thrive (4) Dehydration (5) Anemia (6) Dysphagia (7) DM (diabetes mellitus) Plan Obtain ST evaluation Calorie count for 48 hours Will consider PEG if nutritional needs are not met Erythromycin ATC given possible gastroparesis secondary to DM PPI OB stool rule out GI bleed Monitor H&H, PRN transfusion Zofran as needed Electrolyte correction Follow labs Discussed with Dr. Stephens. Thank you for this patient referral, we will follow. The patient was seen and examined at bedside and all new and available data was reviewed in the patients chart. I agree with the above findings, impression and plan. (Patient seen earlier today. Signature stamp does not reflect patient encounter time.). - MD Mary Kay Black,[facility] [place] SILK SCREEN OPERATOR Sep 25, 2018 11:20
[2018-09-25 12:00] VITALS: BP 127/68
--- NOTE | 2018-09-25 12:14 | NUR ---
*-* DISCHARGE PLANNING *-* PATIENT HAS BEEN REFERRED TO: [facility] F:[phone]
--- NOTE | 2018-09-25 12:18 | Consultation ---
History of Present Illness General Date patient seen: Sep 25, 2018 Chief Complaint: Vomiting Referring physician: FABIO GASTELUM Reason for Consultation: inpatient management Present Illness HPI 67-year-old male with hx of DM, HTN, COPD, CVA/TIA, seizures [facility] of vomiting and not t eating. He has had vomiting for the last 3 days. Increasingly weak. Denies any fevers or chills. Denies chest pain or shortness of breath. Pt had leukocytosis, hyperglycemia and azotemia. He is admitted for further work up. Allergies: Coded Allergies: No Known Allergies (Unverified , 01/05/13) Medication History Scheduled Atorvastatin Calcium* (Lipitor*), 10 MG ORAL BEDTIME, (Reported) Buspirone Hcl* (Buspar*), 5 MG ORAL BID, (Reported) Docusate Sodium (Docusate Sodium), 100 MG ORAL TWICE A DAY, (Reported) Docusate Sodium* (Docusate Sodium*), 100 MG ORAL DAILY, (Reported) Folic Acid (Folic Acid), 1 MG PO DAILY, (Reported) Folic Acid (Folic Acid), 1 MG PO DAILY, (Reported) Heparin Sod (Porcine) (Heparin Sodium*), 5,000 UNITS SUBQ EVERY 12 HOURS, ( Reported) Levetiracetam* (Levetiracetam*), 500 MG ORAL Q12HR, (Reported) Morphine Sulfate (Morphine Sulfate), 0.5 MG IV Q4HR, (Reported) Olanzapine* (Zyprexa*), 5 MG ORAL BID, (Reported) Valproic Acid (Depakene), 500 MG ORAL BID, (Reported) Scheduled PRN Insulin Aspart (Novolog), 100 UNIT SQ AC+HS PRN for Per rx protocol, (Reported) Lorazepam (Lorazepam), 0.5 MG IV Q4H PRN for For Anxiety, (Reported) Magnesium Hydroxide* (Milk Of Magnesia*), 30 ML ORAL HS PRN for Constipation, ( Reported) Ondansetron* (Zofran*), 4 MG IV Q6H PRN for Nausea & Vomiting, (Reported) Polyethylene Glycol 3350* (Polyethylene Glycol 3350*), 17 GM ORAL BEDTIME PRN for Constipation, (Reported) Zolpidem Tartrate* (Ambien*), 5 MG ORAL BEDTIME PRN for Insomnia, (Reported) Miscellaneous Medications Insulin Aspart (Novolog), 100 UNIT SQ, (Reported) Insulin Aspart (Novolog Flexpen), (Reported) Patient History Healthcare decision maker Resuscitation status Full Code Advanced Directive on File Past Medical/Surgical History Past Medical/Surgical History: (1) COPD (chronic obstructive pulmonary disease) (2) Seizure disorder (3) HTN (hypertension) (4) DM (diabetes mellitus) (5) Gastroparesis Review of Systems All Other Systems: negative except mentioned in HPI Physical Exam General Appearance: combative, cachetic Lines, tubes and drains: peripheral HEENT: normocephalic, atraumatic Neck: non-tender, normal alignment Respiratory/Chest: chest wall non-tender, lungs clear Cardiovascular/Chest: normal rate Abdomen: normal bowel sounds, soft Genitourinary/Rectal: normal genital exam Extremities: normal range of motion Last 24 Hour Vital Signs Date Time Temp Pulse Resp B/P (MAP) Pulse Ox O2 Delivery O2 Flow Rate FiO2 09/25/18 09:00 Nasal Cannula 3.0 09/25/18 08:00 98.4 74 18 114/66 (82) 100 09/25/18 04:00 98.0 69 16 121/72 (88) 94 09/25/18 00:00 97.8 65 18 120/66 (84) 95 09/24/18 21:00 Nasal Cannula 3.0 09/24/18 20:00 98.8 92 19 120/75 (90) 90 09/24/18 18:28 Nasal Cannula 3.0 09/24/18 17:02 98.3 73 14 146/74 96 3.0 09/24/18 14:45 98.4 73 17 149/79 97 Nasal Cannula 3.0 09/24/18 12:45 80 24 Nasal Cannula 3.0 09/24/18 12:45 98.2 80 24 141/87 98 Room Air 3.0 09/24/18 12:40 97.9 82 20 117/76 83 Room Air Intake and Output 09/24/18 09/25/18 19:00 07:00 Intake Total 1100 ml 1340 ml Output Total 400 ml Balance 1100 ml 940 ml Intake Oral 240 ml IV Total 1100 ml 1100 ml Output Urine Total 400 ml # Voids 1 2 # Bowel Movements 1 Laboratory Tests Test 09/24/18 13:09 09/24/18 14:00 09/25/18 06:15 White Blood Count 11.4 K/UL (4.8-10.8) H 9.1 K/UL (4.8-10.8) Red Blood Count 4.03 M/UL (4.70-6.10) L 3.37 M/UL (4.70-6.10) L Hemoglobin 11.8 G/DL (14.2-18.0) L 9.9 G/DL (14.2-18.0) L Hematocrit 36.5 % (42.0-52.0) L 30.7 % (42.0-52.0) L Mean Corpuscular Volume 91 FL (80-99) 91 FL (80-99) Mean Corpuscular Hemoglobin 29.2 PG (27.0-31.0) 29.5 PG (27.0-31.0) Mean Corpuscular Hemoglobin Concent 32.2 G/DL (32.0-36.0) 32.4 G/DL (32.0-36.0) Red Cell Distribution Width 13.5 % (11.6-14.8) 13.7 % (11.6-14.8) Platelet Count 291 K/UL (150-450) 260 K/UL (150-450) Mean Platelet Volume 6.4 FL (6.5-10.1) L 6.0 FL (6.5-10.1) L Neutrophils (%) (Auto) 71.8 % (45.0-75.0) 68.6 % (45.0-75.0) Lymphocytes (%) (Auto) 18.8 % (20.0-45.0) L 20.9 % (20.0-45.0) Monocytes (%) (Auto) 8.6 % (1.0-10.0) 9.3 % (1.0-10.0) Eosinophils (%) (Auto) 0.2 % (0.0-3.0) 0.7 % (0.0-3.0) Basophils (%) (Auto) 0.7 % (0.0-2.0) 0.5 % (0.0-2.0) Sodium Level 138 MMOL/L (136-145) 143 MMOL/L (136-145) Potassium Level 4.3 MMOL/L (3.5-5.1) 3.5 MMOL/L (3.5-5.1) Chloride Level 99 MMOL/L (98-107) 107 MMOL/L (98-107) Carbon Dioxide Level 27 MMOL/L (21-32) 27 MMOL/L (21-32) Anion Gap 12 mmol/L (5-15) 9 mmol/L (5-15) Blood Urea Nitrogen 38 mg/dL (7-18) H 22 mg/dL (7-18) H Creatinine 1.1 MG/DL (0.55-1.30) 0.9 MG/DL (0.55-1.30) Estimat Glomerular Filtration Rate > 60 mL/min (>60) > 60 mL/min (>60) Glucose Level 359 MG/DL (74-106) H 141 MG/DL (74-106) #H Lactic Acid Level 1.70 mmol/L (0.4-2.0) Calcium Level 9.5 MG/DL (8.5-10.1) 8.3 MG/DL (8.5-10.1) L Total Bilirubin 0.4 MG/DL (0.2-1.0) 0.4 MG/DL (0.2-1.0) Aspartate Amino Transf (AST/SGOT) 16 U/L (15-37) 10 U/L (15-37) L Alanine Aminotransferase (ALT/SGPT) 10 U/L (12-78) L 9 U/L (12-78) L Alkaline Phosphatase 69 U/L (46-116) 51 U/L (46-116) Pro-B-Type Natriuretic Peptide 120 pg/mL (0-125) Total Protein 8.5 G/DL (6.4-8.2) H 6.9 G/DL (6.4-8.2) Albumin 3.2 G/DL (3.4-5.0) L 2.7 G/DL (3.4-5.0) L Globulin 5.3 g/dL 4.2 g/dL Albumin/Globulin Ratio 0.6 (1.0-2.7) L 0.6 (1.0-2.7) L Urine Color Yellow Urine Appearance Clear Urine pH 6 (4.5-8.0) Urine Specific [place] 1.015 (1.005-1.035) Urine Protein 1+ (NEGATIVE) H Urine Glucose (UA) 3+ (NEGATIVE) H Urine Ketones 3+ (NEGATIVE) H Urine Blood 3+ (NEGATIVE) H Urine Nitrite Negative (NEGATIVE) Urine Bilirubin Negative (NEGATIVE) Urine Urobilinogen 4 MG/DL (0.0-1.0) H Urine Leukocyte Esterase 1+ (NEGATIVE) H Urine RBC 5-10 /HPF (0 - 0) H Urine WBC 0-2 /HPF (0 - 0) Urine Squamous Epithelial Cells Occasional /LPF Urine Bacteria Occasional /HPF (NONE) Hemoglobin A1c 8.8 % (4.3-6.0) H Triglycerides Level 111 MG/DL (30-150) Cholesterol Level 139 MG/DL (< 200) LDL Cholesterol 76 mg/dL (<100) HDL Cholesterol 39 MG/DL (40-60) L Cholesterol/HDL Ratio 3.6 (3.3-4.4) Thyroid Stimulating Hormone (TSH) 1.535 uiU/mL (0.358-3.740) Microbiology Date/Time Source Procedure Growth Status 09/24/18 19:30 Nasopharynx Influenza Types A,B Antigen (LIZA) - Final Complete Height (Feet): 5 Height (Inches): 10.00 Weight (Pounds): 150 Medications Current Medications Medications (Trade) Dose Ordered Sig/Kun Route PRN Reason Start Time Stop Time Status Last Admin Dose Admin Acetaminophen (Tylenol) 650 mg Q4H PRN ORAL T>100.5 09/24/18 15:30 10/24/18 15:29 Al Hydroxide/Mg Hydroxide (Mylanta II) 30 ml Q6H PRN ORAL dyspepsia 09/24/18 15:30 10/24/18 15:29 Albuterol/ Ipratropium (Albuterol/ Ipratropium) 3 ml Q4H PRN HHN Shortness of Breath 09/24/18 15:30 09/29/18 15:29 Buspirone HCl (Buspar) 5 mg BID ORAL 09/24/18 18:00 10/24/18 17:59 09/24/18 17:42 Clonidine HCl (Catapres Tab) 0.1 mg Q4H PRN ORAL SBP > 160mmHg 09/24/18 15:30 10/24/18 15:29 Dextrose (Dextrose 50%) 25 ml Q30M PRN IV Hypoglycemia 09/25/18 06:30 10/25/18 06:29 Dextrose (Dextrose 50%) 50 ml Q30M PRN IV Hypoglycemia 09/25/18 06:30 10/25/18 06:29 Erythromycin (Erythrocin) 500 mg Q6HR ORAL 09/25/18 13:00 10/02/18 12:59 Folic Acid (Folate) 1 mg DAILY ORAL 09/25/18 09:00 10/25/18 08:59 Heparin Sodium (Porcine) (Heparin 5000 units/ml) 5,000 units EVERY 12 HOURS SUBQ 09/24/18 21:00 10/24/18 20:59 09/25/18 09:02 Insulin Aspart (NovoLOG) BEFORE MEALS AND HS SUBQ 09/24/18 17:30 10/24/18 17:29 09/25/18 05:55 Insulin Detemir (Levemir) 10 units DAILY SUBQ 09/25/18 09:00 10/25/18 08:59 09/25/18 09:03 Ketorolac Tromethamine (Toradol 30mg) 30 mg Q6H PRN IV Moderate Pain (Pain Scale 4-6) 09/24/18 15:30 09/29/18 15:29 Levetiracetam 100 ml @ 400 mls/hr Q12HR IVPB 09/25/18 10:30 10/25/18 10:29 09/25/18 10:46 Lorazepam (Ativan) 1 mg Q6H PRN ORAL For Anxiety 09/25/18 09:15 10/02/18 09:14 Morphine Sulfate (Morphine Sulfate) 2 mg Q4H PRN IVP Severe Pain (Pain Scale 7-10) 09/24/18 15:30 10/01/18 15:29 Nitroglycerin (Ntg) 0.4 mg Q5MIN X 3 DOSES PRN SL Prn Chest Pain 09/24/18 15:45 10/24/18 15:44 Olanzapine (ZyPREXA) 5 mg Q12HR ORAL 09/24/18 21:00 10/24/18 20:59 09/24/18 21:11 Ondansetron HCl (Zofran) 4 mg Q6H PRN IVP Nausea & Vomiting 09/24/18 15:30 4/17/19 15:29 Polyethylene Glycol (Miralax) 17 gm HSPRN PRN ORAL Constipation 09/24/18 21:00 10/24/18 20:59 Sodium Chloride 1,000 ml @ 100 mls/hr Q10H IVLG 09/24/18 17:00 10/24/18 16:59 09/25/18 03:00 Temazepam (Restoril) 15 mg HSPRN PRN ORAL Insomnia 09/24/18 21:00 10/01/18 20:59 Valproic Acid (Depakene) 500 mg BID ORAL 09/24/18 18:00 10/24/18 17:59 09/24/18 17:42 Assessment/Plan Problem List: (1) Acute encephalopathy ICD Codes: G93.40 - Encephalopathy, unspecified SNOMED: 79476050, 855012945 (2) Failure to thrive SNOMED: 10491884 Qualifiers: Qualified Codes: R62.7 - Adult failure to thrive (3) COPD (chronic obstructive pulmonary disease) ICD Codes: J44.9 - Chronic obstructive pulmonary disease, unspecified SNOMED: 74994412 (4) Sepsis ICD Codes: A41.9 - Sepsis, unspecified organism SNOMED: 15615250 (5) HTN (hypertension) ICD Codes: I10 - Hypertension SNOMED: 89547040 (6) DM (diabetes mellitus) ICD Codes: E11.9 - Diabetes mellitus SNOMED: 83242449 Qualifiers: Qualified Codes: E13.8 - Other specified diabetes mellitus with unspecified complications (7) Gastroparesis ICD Codes: K31.84 - Gastroparesis SNOMED: 252513911 (8) Seizure disorder ICD Codes: G40.909 - Seizure disorder SNOMED: 403163214 Assessment/Plan respiratory treatment check electrolytes check cultures iv abx GI evaluation symptomatic treatment titrate fio2 to saturation of 92% dvt prophylaxis. Mey Latham MD Sep 25, 2018 12:18
--- NOTE | 2018-09-25 12:28 | Infectious Diseases Prog Note ---
Assessment/Plan Assessment/Plan Abx: None Assessment: Vomiting- probable related to gastropresis FTT -CXR: No acute process Afebrile Mild leukocytosis, suspect reactive- now resolved; no evidence of active infectious process -u/a neg DM2 HTN COPD CVA/TIA w/ L side weakness seizure disorder SNF resident Plan: -Continue to monitor off abx unless febrile, increasing WBC and/or HD unstable -f/u cx -Monitor CBC/CMP, temperatures -aspiration precautions -GI f/u Thank you for this consultation. Will continue to follow along with you. Discussed with RN. Subjective Allergies: Coded Allergies: No Known Allergies (Unverified , 01/05/13) Objective Vital Signs Last 24 Hour Vital Signs Date Time Temp Pulse Resp B/P (MAP) Pulse Ox O2 Delivery O2 Flow Rate FiO2 09/25/18 09:00 Nasal Cannula 3.0 09/25/18 08:00 98.4 74 18 114/66 (82) 100 09/25/18 04:00 98.0 69 16 121/72 (88) 94 09/25/18 00:00 97.8 65 18 120/66 (84) 95 09/24/18 21:00 Nasal Cannula 3.0 09/24/18 20:00 98.8 92 19 120/75 (90) 90 09/24/18 18:28 Nasal Cannula 3.0 09/24/18 17:02 98.3 73 14 146/74 96 3.0 09/24/18 14:45 98.4 73 17 149/79 97 Nasal Cannula 3.0 09/24/18 12:45 80 24 Nasal Cannula 3.0 09/24/18 12:45 98.2 80 24 141/87 98 Room Air 3.0 09/24/18 12:40 97.9 82 20 117/76 83 Room Air Height (Feet): 5 Height (Inches): 10.00 Weight (Pounds): 150 Objective General Appearance: no apparent distress, alert HEENT: bilateral eye normal inspection, bilateral eye PERRL normal pharynx Neck: full range of motion, supple/symm/no masses Respiratory: chest non-tender, lungs clear, normal breath sounds, speaking full sentences Cardiovascular regular rate, rhythm, no edema Gastrointestinal: normal bowel sounds, non tender, soft, non-distended, no guarding, no rebound Genitourinary: normal inspection, no CVA tenderness Musculoskeletal: back normal, gait/station normal, normal range of motion, non- tender Skin: normal color, no rash, warm/dry, well hydrated Microbiology Date/Time Source Procedure Growth Status 09/24/18 19:30 Nasopharynx Influenza Types A,B Antigen (LIZA) - Final Complete Laboratory Tests Test 09/24/18 13:09 09/24/18 14:00 09/25/18 06:15 White Blood Count 11.4 K/UL (4.8-10.8) H 9.1 K/UL (4.8-10.8) Red Blood Count 4.03 M/UL (4.70-6.10) L 3.37 M/UL (4.70-6.10) L Hemoglobin 11.8 G/DL (14.2-18.0) L 9.9 G/DL (14.2-18.0) L Hematocrit 36.5 % (42.0-52.0) L 30.7 % (42.0-52.0) L Mean Corpuscular Volume 91 FL (80-99) 91 FL (80-99) Mean Corpuscular Hemoglobin 29.2 PG (27.0-31.0) 29.5 PG (27.0-31.0) Mean Corpuscular Hemoglobin Concent 32.2 G/DL (32.0-36.0) 32.4 G/DL (32.0-36.0) Red Cell Distribution Width 13.5 % (11.6-14.8) 13.7 % (11.6-14.8) Platelet Count 291 K/UL (150-450) 260 K/UL (150-450) Mean Platelet Volume 6.4 FL (6.5-10.1) L 6.0 FL (6.5-10.1) L Neutrophils (%) (Auto) 71.8 % (45.0-75.0) 68.6 % (45.0-75.0) Lymphocytes (%) (Auto) 18.8 % (20.0-45.0) L 20.9 % (20.0-45.0) Monocytes (%) (Auto) 8.6 % (1.0-10.0) 9.3 % (1.0-10.0) Eosinophils (%) (Auto) 0.2 % (0.0-3.0) 0.7 % (0.0-3.0) Basophils (%) (Auto) 0.7 % (0.0-2.0) 0.5 % (0.0-2.0) Sodium Level 138 MMOL/L (136-145) 143 MMOL/L (136-145) Potassium Level 4.3 MMOL/L (3.5-5.1) 3.5 MMOL/L (3.5-5.1) Chloride Level 99 MMOL/L (98-107) 107 MMOL/L (98-107) Carbon Dioxide Level 27 MMOL/L (21-32) 27 MMOL/L (21-32) Anion Gap 12 mmol/L (5-15) 9 mmol/L (5-15) Blood Urea Nitrogen 38 mg/dL (7-18) H 22 mg/dL (7-18) H Creatinine 1.1 MG/DL (0.55-1.30) 0.9 MG/DL (0.55-1.30) Estimat Glomerular Filtration Rate > 60 mL/min (>60) > 60 mL/min (>60) Glucose Level 359 MG/DL (74-106) H 141 MG/DL (74-106) #H Lactic Acid Level 1.70 mmol/L (0.4-2.0) Calcium Level 9.5 MG/DL (8.5-10.1) 8.3 MG/DL (8.5-10.1) L Total Bilirubin 0.4 MG/DL (0.2-1.0) 0.4 MG/DL (0.2-1.0) Aspartate Amino Transf (AST/SGOT) 16 U/L (15-37) 10 U/L (15-37) L Alanine Aminotransferase (ALT/SGPT) 10 U/L (12-78) L 9 U/L (12-78) L Alkaline Phosphatase 69 U/L (46-116) 51 U/L (46-116) Pro-B-Type Natriuretic Peptide 120 pg/mL (0-125) Total Protein 8.5 G/DL (6.4-8.2) H 6.9 G/DL (6.4-8.2) Albumin 3.2 G/DL (3.4-5.0) L 2.7 G/DL (3.4-5.0) L Globulin 5.3 g/dL 4.2 g/dL Albumin/Globulin Ratio 0.6 (1.0-2.7) L 0.6 (1.0-2.7) L Urine Color Yellow Urine Appearance Clear Urine pH 6 (4.5-8.0) Urine Specific [place] 1.015 (1.005-1.035) Urine Protein 1+ (NEGATIVE) H Urine Glucose (UA) 3+ (NEGATIVE) H Urine Ketones 3+ (NEGATIVE) H Urine Blood 3+ (NEGATIVE) H Urine Nitrite Negative (NEGATIVE) Urine Bilirubin Negative (NEGATIVE) Urine Urobilinogen 4 MG/DL (0.0-1.0) H Urine Leukocyte Esterase 1+ (NEGATIVE) H Urine RBC 5-10 /HPF (0 - 0) H Urine WBC 0-2 /HPF (0 - 0) Urine Squamous Epithelial Cells Occasional /LPF Urine Bacteria Occasional /HPF (NONE) Hemoglobin A1c 8.8 % (4.3-6.0) H Triglycerides Level 111 MG/DL (30-150) Cholesterol Level 139 MG/DL (< 200) LDL Cholesterol 76 mg/dL (<100) HDL Cholesterol 39 MG/DL (40-60) L Cholesterol/HDL Ratio 3.6 (3.3-4.4) Thyroid Stimulating Hormone (TSH) 1.535 uiU/mL (0.358-3.740) Current Medications Medications (Trade) Dose Ordered Sig/Kun Route PRN Reason Start Time Stop Time Status Last Admin Dose Admin Acetaminophen (Tylenol) 650 mg Q4H PRN ORAL T>100.5 09/24/18 15:30 10/24/18 15:29 Al Hydroxide/Mg Hydroxide (Mylanta II) 30 ml Q6H PRN ORAL dyspepsia 09/24/18 15:30 10/24/18 15:29 Albuterol/ Ipratropium (Albuterol/ Ipratropium) 3 ml Q4H PRN HHN Shortness of Breath 09/24/18 15:30 09/29/18 15:29 Buspirone HCl (Buspar) 5 mg BID ORAL 09/24/18 18:00 10/24/18 17:59 09/24/18 17:42 Clonidine HCl (Catapres Tab) 0.1 mg Q4H PRN ORAL SBP > 160mmHg 09/24/18 15:30 10/24/18 15:29 Dextrose (Dextrose 50%) 25 ml Q30M PRN IV Hypoglycemia 09/25/18 06:30 10/25/18 06:29 Dextrose (Dextrose 50%) 50 ml Q30M PRN IV Hypoglycemia 09/25/18 06:30 10/25/18 06:29 Erythromycin (Erythrocin) 500 mg Q6HR ORAL 09/25/18 13:00 10/02/18 12:59 Folic Acid (Folate) 1 mg DAILY ORAL 09/25/18 09:00 10/25/18 08:59 Heparin Sodium (Porcine) (Heparin 5000 units/ml) 5,000 units EVERY 12 HOURS SUBQ 09/24/18 21:00 10/24/18 20:59 09/25/18 09:02 Insulin Aspart (NovoLOG) BEFORE MEALS AND HS SUBQ 09/24/18 17:30 10/24/18 17:29 09/25/18 05:55 Insulin Detemir (Levemir) 10 units DAILY SUBQ 09/25/18 09:00 10/25/18 08:59 09/25/18 09:03 Ketorolac Tromethamine (Toradol 30mg) 30 mg Q6H PRN IV Moderate Pain (Pain Scale 4-6) 09/24/18 15:30 09/29/18 15:29 Levetiracetam 100 ml @ 400 mls/hr Q12HR IVPB 09/25/18 10:30 10/25/18 10:29 09/25/18 10:46 Lorazepam (Ativan) 1 mg Q6H PRN ORAL For Anxiety 09/25/18 09:15 10/02/18 09:14 Morphine Sulfate (Morphine Sulfate) 2 mg Q4H PRN IVP Severe Pain (Pain Scale 7-10) 09/24/18 15:30 10/01/18 15:29 Nitroglycerin (Ntg) 0.4 mg Q5MIN X 3 DOSES PRN SL Prn Chest Pain 09/24/18 15:45 10/24/18 15:44 Olanzapine (ZyPREXA) 5 mg Q12HR ORAL 09/24/18 21:00 10/24/18 20:59 09/24/18 21:11 Ondansetron HCl (Zofran) 4 mg Q6H PRN IVP Nausea & Vomiting 09/24/18 15:30 10/24/18 15:29 Polyethylene Glycol (Miralax) 17 gm HSPRN PRN ORAL Constipation 09/24/18 21:00 10/24/18 20:59 Sodium Chloride 1,000 ml @ 100 mls/hr Q10H IVLG 09/24/18 17:00 10/24/18 16:59 09/25/18 03:00 Temazepam (Restoril) 15 mg HSPRN PRN ORAL Insomnia 09/24/18 21:00 10/01/18 20:59 Valproic Acid (Depakene) 500 mg BID ORAL 09/24/18 18:00 10/24/18 17:59 09/24/18 17:42 Shell Niño M.D. Sep 25, 2018 12:28
--- NOTE | 2018-09-25 13:27 | NUR ---
RD ASSESSMENT & RECOMMENDATIONS SEE CARE ACTIVITY FOR COMPLETE ASSESSMENT DAILY ESTIMATED NEEDS: Needs based on DM, underweight, possible wt loss / 54kg 30-35 kcals/kg 3160-4537 total kcals 1-1.5 g protein/kg 54-81 g total protein 25-30 mL/kg 7912-5118 total fluid mLs NUTRITION DIAGNOSIS: 1) Suspected swallowing difficulty R/T dysphagia w/ h/o CVA as evidenced by pt on pureed moist texture diet, NTL. 2) Altered nutrition related lab values R/T diabetes as evidenced by elev BG of 359 upon adm, now improved, POC glu (137 255 259), A1C of 8.8. 3) Increased kcal/prot needs R/T wt loss, underweight status as evidenced by pt is 80% IBW, possible recent wt loss of 8.5lbs/6.7% in <4 months. CURRENT DIET:CCHO MED, pureed moist + NTL PO DIET RECOMMENDATIONS: CCHO MED (TEXTURE PER WOOL MIXER) ADDITIONAL RECOMMENDATIONS: - Monitor PO intake closely, f/up w/ mariel count x 48 hrs - CALIBRATED bedscale wt for accurate CBW, weekly wt monitoring -> possible recent wt loss, underweight status - Add Glucerna 1 tetra sudarshan TID w/ meals - Monitor PO tolerance- admitted w/ c/o vomitting - Add LOW NA to diet order w/ PO intake consistently >70%
--- NOTE | 2018-09-25 14:15 | General Progress Note ---
Assessment/Plan Problem List: (1) UTI (urinary tract infection) ICD Codes: N39.0 - Urinary tract infection, site not specified SNOMED: 49728917 (2) CVA (cerebral vascular accident) ICD Codes: I63.9 - Cerebral infarction, unspecified SNOMED: 551568533 (3) COPD (chronic obstructive pulmonary disease) ICD Codes: J44.9 - Chronic obstructive pulmonary disease, unspecified SNOMED: 99702216 (4) Anemia ICD Codes: D64.9 - Anemia, unspecified SNOMED: 661968160 (5) Seizure disorder ICD Codes: G40.909 - Seizure disorder SNOMED: 257590573 (6) HTN (hypertension) ICD Codes: I10 - Hypertension SNOMED: 14117534 (7) Sepsis ICD Codes: A41.9 - Sepsis, unspecified organism SNOMED: 30915388 (8) DM (diabetes mellitus) ICD Codes: E11.9 - Diabetes mellitus SNOMED: 65805010 Qualifiers: Qualified Codes: E13.8 - Other specified diabetes mellitus with unspecified complications (9) Failure to thrive SNOMED: 76383980 Qualifiers: Qualified Codes: R62.7 - Adult failure to thrive Status: unchanged Assessment/Plan pt diet abx o2 pulm tx cbc bmp am Subjective Constitutional: Reports: weakness Allergies: Coded Allergies: No Known Allergies (Unverified , 01/05/13) All Systems: reviewed and negative except above Subjective 02nc sleepy in bed Objective Last 24 Hour Vital Signs Date Time Temp Pulse Resp B/P (MAP) Pulse Ox O2 Delivery O2 Flow Rate FiO2 09/25/18 12:00 97.9 60 16 127/68 (87) 97 09/25/18 09:00 Nasal Cannula 3.0 09/25/18 08:00 98.4 74 18 114/66 (82) 100 09/25/18 04:00 98.0 69 16 121/72 (88) 94 09/25/18 00:00 97.8 65 18 120/66 (84) 95 09/24/18 21:00 Nasal Cannula 3.0 09/24/18 20:00 98.8 92 19 120/75 (90) 90 09/24/18 18:28 Nasal Cannula 3.0 09/24/18 17:02 98.3 73 14 146/74 96 3.0 09/24/18 14:45 98.4 73 17 149/79 97 Nasal Cannula 3.0 Intake and Output 09/24/18 09/25/18 19:00 07:00 Intake Total 1100 ml 1340 ml Output Total 400 ml Balance 1100 ml 940 ml Intake Oral 240 ml IV Total 1100 ml 1100 ml Output Urine Total 400 ml # Voids 1 2 # Bowel Movements 1 Laboratory Tests 09/25/18 06:15: White Blood Count 9.1, Red Blood Count 3.37L, Hemoglobin 9.9L, Hematocrit 30.7L , Mean Corpuscular Volume 91, Mean Corpuscular Hemoglobin 29.5, Mean Corpuscular Hemoglobin Concent 32.4, Red Cell Distribution Width 13.7, Platelet Count 260, Mean Platelet Volume 6.0L, Neutrophils (%) (Auto) 68.6, Lymphocytes ( %) (Auto) 20.9, Monocytes (%) (Auto) 9.3, Eosinophils (%) (Auto) 0.7, Basophils (%) (Auto) 0.5, Sodium Level 143, Potassium Level 3.5, Chloride Level 107, Carbon Dioxide Level 27, Anion Gap 9, Blood Urea Nitrogen 22H, Creatinine 0.9, Estimat Glomerular Filtration Rate > 60, Glucose Level 141#H, Hemoglobin A1c 8.8H, Calcium Level 8.3L, Total Bilirubin 0.4, Aspartate Amino Transf (AST/SGOT ) 10L, Alanine Aminotransferase (ALT/SGPT) 9L, Alkaline Phosphatase 51, Total Protein 6.9, Albumin 2.7L, Globulin 4.2, Albumin/Globulin Ratio 0.6L, Triglycerides Level 111, Cholesterol Level 139, LDL Cholesterol 76, HDL Cholesterol 39L, Cholesterol/HDL Ratio 3.6, Thyroid Stimulating Hormone (TSH) 1.535 Height (Feet): 5 Height (Inches): 10.00 Weight (Pounds): 150 General Appearance: lethargic EENT: normal ENT inspection Neck: normal alignment Cardiovascular: normal peripheral pulses, normal rate, regular rhythm Respiratory/Chest: chest wall non-tender, lungs clear, normal breath sounds Abdomen: normal bowel sounds, non tender, soft Extremities: normal inspection Edema: no edema noted Arm (L), no edema noted Arm (R), no edema noted Leg (L), no edema noted Leg (R), no edema noted Pedal (L), no edema noted Pedal (R), no edema noted Generalized Neurologic: motor weakness Skin: normal pigmentation, warm/dry Nura Carter DO Sep 25, 2018 14:15
--- NOTE | 2018-09-25 14:34 | NUR ---
ST NOTE: BEDSIDE SWALLOW EVAL/CONSULT RECEIVED BEDSIDE SWALLOW EVAL ORDER CHART REVIEWED PRIOR THE EVALUATION COMPLETED SWALLOW CONSULT. PT IS A 67-YEAR-OLD HUNGARIAN-SPEAKING MALE WHO WAS ADMITTED DUE TO WEAKNESS AND FAILURE TO THRIVE. PT VOMITED LAST 3 DAYS. DYSPHAGIA RISK FACTORS: COPD, CVA W/L-SIDED WEAKNESS, H/O DYSPHAGIA, DMII, H/O PNA, BRONCHITIS, H/O SEIZURE, CHF, PSYCH(PARANOID SCHIZOPHRENIA, ANXIETY), POOR PO INTAKE. PER CXR: LUNGS ARE CLEAR. POLST ON 05/2016 OK FOR TF, AT SNF ON A BECCA MINCED AND MOIST CCHO BECCA WITH THIN LIQUID DIET. [place] [facility] [place] WITH NECTAR THICK LIQUIDS WITH GOOD INTAKE. [place] [facility] [place] HAD SEVERE OP DYSPHAGIA WITH NO ASP BUT HIGH RISK AND INEFFICIENT SWALLOW TF REC BUT LATER PLACED ON PUREED/NECTAR THICK LIQ AT THAT TIME. DID NOT HAVE VIDEO AT [facility] ADMIT BUT IT WAS RECOMMENDED. CURRENT STATUS: PT SEEN AT BEDSIDE IN AM AND LATE AM. NOT AWAKE EVEN GIVEN MAX CUES. PT WITH NC(3L). PT IS CURRENTLY ON A [facility]-MED MECH SOFT GROUND THIN LIQUID DIET. UNABLE TO GIVE PO TRIALS FOR NOW. PER MARLY BIRD, MACHINIST WOOD RN REPORTED THAT PT COUGHED ON THIN LIQUIDS BUT ABLE TO TAKE WHOLE PILLS. BASED ON PT'S MEDICAL HISTORY, PT HAS RISK FOR ASPIRATION. RECOMMENDATIONS: 1. CONSERVATIVELY, NPO FOR NOW. 2. IF PO IS GIVEN FOR QUALITY OF LIFE, CHANGED DIET TO CCHO(MEDIUM) MOIST PUREE WITH NECTAR THICK LIQUIDS. 3. STRICT ASPIRATION/REFLUX PRECAUTIONS WITH 1TO1 FEEDING. (FEED PT WHEN ALERT) 4. VIDEOSWALLOW STUDY IP OR OP. 5. CONSIDER LONG-TERM NONORAL FEEDING MEANS IF PT'S PO INTAKE IS SUBOPTIMAL. D/W MARLY BIRD AND THE STAFF POSTED ASPIRATION/REFLUX PRECAUTIONS SIGN.
[2018-09-25 16:00] VITALS: BP 130/70
--- NOTE | 2018-09-25 19:15 | NUR ---
HAND-OFF: Report given to MARGE DYE.
[2018-09-25 20:00] VITALS: BP 135/74
--- NOTE | 2018-09-25 23:21 | NUR ---
NURSE NOTES: Patient is asleep, wakes up to shaking. Patient not following commands. patient is on aspiration precaution. Attempted to give apple sauce in the beginning patient not able to follow command. Will reorient patient.
[2018-09-26] VITALS: BP 117/68
--- NOTE | 2018-09-26 02:30 | Consultation ---
DATE OF CONSULTATION: 09/25/2018 NOTE: "VERY POOR AUDIO QUALITY" HISTORY OF PRESENT ILLNESS: The patient is a male patient who is 67-year-old with weakness, dehydration, failure to thrive, and that is the reason why he is admitted to [facility]. This patient has overlying psychiatric history. He has also failure to thrive, urinary tract infection, sepsis, leukocytosis, and diabetes, so he was brought in from [facility] and the patient has failure to thrive. He was diagnosed with urinary tract infection, sepsis, a lot of other medical problems, but when he came in, he was confused and appeared to have altered mental status, agitation, increased mood lability worsened by stress of his medical illness. He cannot give any other remaining details. He is very confused, disorganized, but he also has mood lability worsened by stress of his medical illness. That is why, his attending physician has requested daily psychiatric consultation. I have seen this patient before on previous admissions as well, but he does appear to be slightly below baseline secondary to stress of his medical illness. MEDICAL HISTORY: This patient has urinary tract infection, failure to thrive, leukocytosis, diabetes, hyperglycemia. He also has anemia, seizure disorder, pneumonitis, status post COPD, acute CVA in the past, hyperlipidemia, urinary retention, dehydration, hypertension, pneumonia, and sepsis. ALLERGIES: He has no known drug allergies. PSYCHOTROPIC MEDICATIONS: On admission, this patient is on a psychotropic medication regimen consisting of Zyprexa 5 mg q.12 h. The patient is also on Depakote at a dose of 500 mg twice a day. He is also on BuSpar at a dose of 5 mg twice a day. SUBSTANCE ABUSE HISTORY: Cannot be obtained because the patient is a poor historian, but on reviewing the chart, the patient did not have any history of any recent drug or alcohol use history. FAMILY PSYCHIATRIC HISTORY: Denies. PAIN ASSESSMENT: 0/10. DEVELOPMENTAL PROBLEMS: Denies. SOCIAL HISTORY: The patient is living in [facility]. Financially supported by [employer] and Medicare. PSYCHIATRIC HISTORY: He has history of schizoaffective, bipolar type. He has been seen by Psychiatry multiple times, even on his last admission to [facility]. STRENGTHS: He is motivated to get better. He has a place to live. WEAKNESSES: He is impulsive with minimal support system. MENTAL STATUS EXAMINATION: This is a 67-year-old male. Appearance is disheveled. Attitude, irritable and agitated. Affect is labile. Intellect poor because he does not know current events or the last four presidents. Mood, depressed and anxious. Motor activity, psychomotor agitation. Attention span is poor because he cannot do serial 7's or spell world backwards. Orientation x1 as he has been only oriented to person, but not place or situation. Speech is nonsensical. Thought process, disorganized and illogical. Thought content, auditory hallucinations and paranoia. Perception is poor because he has perceptual disturbances such as auditory hallucinations and paranoid delusions. Abstract reasoning is poor because he does not understand proverbs, he only has concrete thinking. Insight is poor because he does not recognize having psychiatric disorder. Judgment is poor because he is not able to make clear decisions for himself. No signs of any suicidal or homicidal ideations. Short-term memory is 0/3 of 3-word recall, so poor short-term memory. Long-term memory is poor because he cannot recall long-term events in his life such as high school he went to. DIAGNOSES: 1. Schizoaffective, bipolar type. 2. Medical diagnoses, this patient has acute encephalopathy, weakness, failure to thrive, COPD, hyperlipidemia, urinary tract infection, urinary retention, bacteremia, dysphagia, rhabdomyolysis. 3. Psychosocial stressors, financial. Functional impairment is severe. PLAN: I am going to treat this patient with Zyprexa 5 mg q.12 h., Depakote 500 mg twice a day, BuSpar 5 mg twice a day. I am also going to add Ativan 1 mg every 6 hours p.r.n. anxiety or agitation. Provided him with 20 minutes of cognitive behavioral therapy to help him identify his automatic negative thoughts and to help him convert those negative thoughts to more positive thoughts to reduce depression, anxiety, and suicidality. He will continue to be followed by Psychiatry throughout his hospital course. . Twenty minutes of cognitive behavioral therapy provided. Seen and assessed in his room. I would like to thank Dr. Nura Carter for this interesting consultation. Chart was reviewed. Discussed with staff. The patient was seen and assessed at bedside. Berto Umana M.D. DR: Charla JOB#: [id number] CC:
[2018-09-26 04:00] VITALS: BP 143/73
[2018-09-26] MEDS: NovoLOG Insulin Flexpen SUBQ SCH ×4 (05:47→20:37)
--- NOTE | 2018-09-26 06:03 | General Progress Note ---
Assessment/Plan Problem List: (1) COPD (chronic obstructive pulmonary disease) ICD Codes: J44.9 - Chronic obstructive pulmonary disease, unspecified SNOMED: 46385551 (2) Acute encephalopathy ICD Codes: G93.40 - Encephalopathy, unspecified SNOMED: 82293195, 435228727 (3) DM (diabetes mellitus) ICD Codes: E11.9 - Diabetes mellitus SNOMED: 80401680 Qualifiers: Qualified Codes: E13.8 - Other specified diabetes mellitus with unspecified complications (4) HTN (hypertension) ICD Codes: I10 - Hypertension SNOMED: 08673897 Assessment/Plan continue Levemir 10 units daily continue NISS ac / hs Subjective ROS Limited/Unobtainable: Yes Allergies: Coded Allergies: No Known Allergies (Unverified , 01/05/13) Subjective events noted Item Value Date Time Bedside Blood Glucose 119 mg/dl 09/26/18 0547 Bedside Blood Glucose 144 mg/dl H 09/25/18 2124 Bedside Blood Glucose 244 mg/dl H 09/25/18 1809 Bedside Blood Glucose 140 mg/dl H 09/25/18 1324 Bedside Blood Glucose 137 mg/dl H 09/25/18 0903 Bedside Blood Glucose 137 mg/dl H 09/25/18 0555 Hemoglobin A1c 8.8 % H 09/25/18 0615 Objective Last 24 Hour Vital Signs Date Time Temp Pulse Resp B/P (MAP) Pulse Ox O2 Delivery O2 Flow Rate FiO2 09/26/18 04:00 97.7 58 20 143/73 (96) 95 09/26/18 00:00 98.0 60 20 117/68 (84) 95 09/25/18 21:36 63 24 Nasal Cannula 3.0 09/25/18 20:57 Nasal Cannula 3.0 09/25/18 20:00 99.5 82 20 135/74 (94) 94 09/25/18 16:00 98.2 54 20 130/70 (90) 99 09/25/18 12:00 97.9 60 16 127/68 (87) 97 09/25/18 09:00 Nasal Cannula 3.0 09/25/18 08:00 98.4 74 18 114/66 (82) 100 Intake and Output 09/25/18 09/26/18 19:00 07:00 Intake Total 220 ml 900 ml Output Total 400 ml Balance -180 ml 900 ml Intake Oral 120 ml IV Total 100 ml 900 ml Output Urine Total 400 ml Laboratory Tests 09/25/18 06:15: White Blood Count 9.1, Red Blood Count 3.37L, Hemoglobin 9.9L, Hematocrit 30.7L , Mean Corpuscular Volume 91, Mean Corpuscular Hemoglobin 29.5, Mean Corpuscular Hemoglobin Concent 32.4, Red Cell Distribution Width 13.7, Platelet Count 260, Mean Platelet Volume 6.0L, Neutrophils (%) (Auto) 68.6, Lymphocytes ( %) (Auto) 20.9, Monocytes (%) (Auto) 9.3, Eosinophils (%) (Auto) 0.7, Basophils (%) (Auto) 0.5, Sodium Level 143, Potassium Level 3.5, Chloride Level 107, Carbon Dioxide Level 27, Anion Gap 9, Blood Urea Nitrogen 22H, Creatinine 0.9, Estimat Glomerular Filtration Rate > 60, Glucose Level 141#H, Hemoglobin A1c 8.8H, Calcium Level 8.3L, Total Bilirubin 0.4, Aspartate Amino Transf (AST/SGOT ) 10L, Alanine Aminotransferase (ALT/SGPT) 9L, Alkaline Phosphatase 51, Total Protein 6.9, Albumin 2.7L, Globulin 4.2, Albumin/Globulin Ratio 0.6L, Triglycerides Level 111, Cholesterol Level 139, LDL Cholesterol 76, HDL Cholesterol 39L, Cholesterol/HDL Ratio 3.6, Thyroid Stimulating Hormone (TSH) 1.535 Height (Feet): 5 Height (Inches): 10.00 Weight (Pounds): 150 General Appearance: no apparent distress Neck: normal alignment Cardiovascular: normal rate Respiratory/Chest: normal breath sounds Abdomen: normal bowel sounds Pelvis: normal external exam Objective Current Medications Medications (Trade) Dose Ordered Sig/Kun Route PRN Reason Start Time Stop Time Status Last Admin Dose Admin Acetaminophen (Tylenol) 650 mg Q4H PRN ORAL T>100.5 09/24/18 15:30 10/24/18 15:29 Al Hydroxide/Mg Hydroxide (Mylanta II) 30 ml Q6H PRN ORAL dyspepsia 09/24/18 15:30 10/24/18 15:29 Albuterol/ Ipratropium (Albuterol/ Ipratropium) 3 ml Q4H PRN HHN Shortness of Breath 09/24/18 15:30 09/29/18 15:29 Buspirone HCl (Buspar) 5 mg BID ORAL 09/24/18 18:00 10/24/18 17:59 09/25/18 18:08 Clonidine HCl (Catapres Tab) 0.1 mg Q4H PRN ORAL SBP > 160mmHg 09/24/18 15:30 10/24/18 15:29 Dextrose (Dextrose 50%) 25 ml Q30M PRN IV Hypoglycemia 09/25/18 06:30 10/25/18 06:29 Dextrose (Dextrose 50%) 50 ml Q30M PRN IV Hypoglycemia 09/25/18 06:30 10/25/18 06:29 Erythromycin (Erythrocin) 500 mg Q6HR ORAL 09/25/18 13:00 10/02/18 12:59 09/26/18 05:44 Folic Acid (Folate) 1 mg DAILY ORAL 09/25/18 09:00 10/25/18 08:59 Heparin Sodium (Porcine) (Heparin 5000 units/ml) 5,000 units EVERY 12 HOURS SUBQ 09/24/18 21:00 10/24/18 20:59 09/25/18 21:23 Insulin Aspart (NovoLOG) BEFORE MEALS AND HS SUBQ 09/24/18 17:30 10/24/18 17:29 09/26/18 05:47 Insulin Detemir (Levemir) 10 units DAILY SUBQ 09/25/18 09:00 10/25/18 08:59 09/25/18 09:03 Ketorolac Tromethamine (Toradol 30mg) 30 mg Q6H PRN IV Moderate Pain (Pain Scale 4-6) 09/24/18 15:30 09/29/18 15:29 Levetiracetam 100 ml @ 400 mls/hr Q12HR IVPB 09/25/18 10:30 10/25/18 10:29 09/25/18 21:23 Lorazepam (Ativan) 1 mg Q6H PRN ORAL For Anxiety 09/25/18 09:15 10/02/18 09:14 Morphine Sulfate (Morphine Sulfate) 2 mg Q4H PRN IVP Severe Pain (Pain Scale 7-10) 09/24/18 15:30 10/01/18 15:29 Nitroglycerin (Ntg) 0.4 mg Q5MIN X 3 DOSES PRN SL Prn Chest Pain 09/24/18 15:45 10/24/18 15:44 Olanzapine (ZyPREXA) 5 mg Q12HR ORAL 09/24/18 21:00 10/24/18 20:59 09/25/18 21:23 Ondansetron HCl (Zofran) 4 mg Q6H PRN IVP Nausea & Vomiting 09/24/18 15:30 10/24/18 15:29 Polyethylene Glycol (Miralax) 17 gm HSPRN PRN ORAL Constipation 09/24/18 21:00 10/24/18 20:59 Sodium Chloride 1,000 ml @ 100 mls/hr Q10H IVLG 09/24/18 17:00 10/24/18 16:59 09/25/18 13:14 Temazepam (Restoril) 15 mg HSPRN PRN ORAL Insomnia 09/24/18 21:00 10/01/18 20:59 Valproic Acid (Depakene) 500 mg BID ORAL 09/24/18 18:00 10/24/18 17:59 09/25/18 18:08 Chetan Barrientos MD Sep 26, 2018 06:03
[2018-09-26 06:56] LABS: BASOPHILS % (AUTO) 0.7 % (0.0-2.0); EOSINOPHILS % (AUTO) 1.3 % (0.0-3.0); HEMATOCRIT 31.9 % (42.0-52.0); HEMOGLOBIN 10.3 G/DL (14.2-18.0); LYMPHOCYTES % (AUTO) 23.3 % (20.0-45.0); MEAN CORPUSCULAR VOLUME 92 FL (80-99); MONOCYTES % (AUTO) 8.1 % (1.0-10.0); NEUTROPHILS % (AUTO) 66.6 % (45.0-75.0); PLATELET COUNT 227 K/UL (150-450); RED BLOOD COUNT 3.49 M/UL (4.70-6.10); RED CELL DISTRIBUTION WIDTH 13.5 % (11.6-14.8); WHITE BLOOD COUNT 9.7 K/UL (4.8-10.8)
--- NOTE | 2018-09-26 07:19 | NUR ---
NURSE NOTES: Patient asleep, on nasal cannula 2 liter, no sign of distress and shortness of breath; no sign of chest pain; condom cath in place, drains yellow urine; IV RFA fluid running; side rails padded; bed side rails up x2; bed at lowest position; will keep monitoring.
--- NOTE | 2018-09-26 07:22 | NUR ---
HAND-OFF: Report given to Yulisa Roblero.
[2018-09-26 07:28] LABS: ANION GAP 11 mmol/L (5-15); BLOOD UREA NITROGEN 14 mg/dL (7-18); CALCIUM 8.4 MG/DL (8.5-10.1); CARBON DIOXIDE 26 MMOL/L (21-32); CHLORIDE 108 MMOL/L (98-107); CREATININE 0.7 MG/DL (0.55-1.30); POTASSIUM 3.5 MMOL/L (3.5-5.1); SODIUM 144 MMOL/L (136-145)
[2018-09-26 08:00] VITALS: BP 146/71
[2018-09-26] MEDS: BusPIRone 5mg Tab ORAL SCH ×3 (08:16→17:35)
[2018-09-26] MEDS: levETIRAcetam 500mg/NS100ml 100 ML IVPB SCH ×2 (08:18→21:44)
[2018-09-26] MEDS: Levemir Flexpen SUBQ SCH (08:21)
[2018-09-26] MEDS: Heparin 5000 units/ml inj SUBQ SCH ×3 (08:22→20:35)
--- NOTE | 2018-09-26 08:50 | NUR ---
NURSE NOTES: Patient refused morning medications after medications scanned, crushed and mixed with apple sauce.
--- NOTE | 2018-09-26 11:23 | GI Progress Note ---
Assessment/Plan Problems: (1) Gastroparesis ICD Codes: K31.84 - Gastroparesis SNOMED: 232975862 (2) Failure to thrive SNOMED: 47534131 Qualifiers: Qualified Codes: R62.7 - Adult failure to thrive (3) Uncontrolled seizures ICD Codes: R56.9 - Unspecified convulsions SNOMED: 83914743 (4) Dysphagia ICD Codes: R13.10 - Dysphagia, unspecified SNOMED: 17608986, 253506336 (5) Anemia ICD Codes: D64.9 - Anemia, unspecified SNOMED: 395334389 Status: stable Status Narrative Discussed with Dr. Stephens. Assessment/Plan Obtain ST evaluation, passed on CCHO(MEDIUM) MOIST PUREE WITH NECTAR THICK LIQUIDS. Calorie count for 48 hours Will consider PEG if nutritional needs are not met Erythromycin ATC given possible gastroparesis secondary to DM PPI OB stool rule out GI bleed Monitor H&H, PRN transfusion Zofran as needed Electrolyte correction Follow labs The patient was seen and examined at bedside and all new and available data was reviewed in the patients chart. I agree with the above findings, impression and plan. (Patient seen earlier today. Signature stamp does not reflect patient encounter time.). - James Stephens MD Subjective Subjective Limited Objective Last 24 Hour Vital Signs Date Time Temp Pulse Resp B/P (MAP) Pulse Ox O2 Delivery O2 Flow Rate FiO2 09/26/18 09:00 Nasal Cannula 3.0 09/26/18 08:00 97.5 61 16 146/71 (96) 98 09/26/18 04:00 97.7 58 20 143/73 (96) 95 09/26/18 00:00 98.0 60 20 117/68 (84) 95 09/25/18 21:36 63 24 Nasal Cannula 3.0 09/25/18 20:57 Nasal Cannula 3.0 09/25/18 20:00 99.5 82 20 135/74 (94) 94 09/25/18 16:00 98.2 54 20 130/70 (90) 99 09/25/18 12:00 97.9 60 16 127/68 (87) 97 Intake and Output 09/25/18 09/26/18 18:59 06:59 Intake Total 120 ml 1000 ml Output Total 400 ml 700 ml Balance -280 ml 300 ml Intake Oral 120 ml IV Total 1000 ml Output Urine Total 400 ml 700 ml Laboratory Tests Test 09/26/18 06:05 White Blood Count 9.7 K/UL (4.8-10.8) Red Blood Count 3.49 M/UL (4.70-6.10) L Hemoglobin 10.3 G/DL (14.2-18.0) L Hematocrit 31.9 % (42.0-52.0) L Mean Corpuscular Volume 92 FL (80-99) Mean Corpuscular Hemoglobin 29.5 PG (27.0-31.0) Mean Corpuscular Hemoglobin Concent 32.2 G/DL (32.0-36.0) Red Cell Distribution Width 13.5 % (11.6-14.8) Platelet Count 227 K/UL (150-450) Mean Platelet Volume 5.9 FL (6.5-10.1) L Neutrophils (%) (Auto) 66.6 % (45.0-75.0) Lymphocytes (%) (Auto) 23.3 % (20.0-45.0) Monocytes (%) (Auto) 8.1 % (1.0-10.0) Eosinophils (%) (Auto) 1.3 % (0.0-3.0) Basophils (%) (Auto) 0.7 % (0.0-2.0) Sodium Level 144 MMOL/L (136-145) Potassium Level 3.5 MMOL/L (3.5-5.1) Chloride Level 108 MMOL/L (98-107) H Carbon Dioxide Level 26 MMOL/L (21-32) Anion Gap 11 mmol/L (5-15) Blood Urea Nitrogen 14 mg/dL (7-18) Creatinine 0.7 MG/DL (0.55-1.30) Estimat Glomerular Filtration Rate > 60 mL/min (>60) Glucose Level 112 MG/DL (74-106) H Calcium Level 8.4 MG/DL (8.5-10.1) L Height (Feet): 5 Height (Inches): 10.00 Weight (Pounds): 127 General Appearance: WD/WN, no apparent distress, alert, thin Cardiovascular: normal rate Respiratory/Chest: normal breath sounds, no respiratory distress Abdominal Exam: normal bowel sounds, non tender, soft Extremities: non-tender Muñiz,Tara-Alfredito FAMILY MEDICINE PHYSICIAN ASSISTANT Sep 26, 2018 11:23
[2018-09-26 12:00] VITALS: BP 146/79
--- NOTE | 2018-09-26 12:03 | NUR ---
NURSE NOTES: Patient refused to take Erythrocin after medication crushed and mixed with apple sauce. Will keep monitoring.
--- NOTE | 2018-09-26 12:26 | NUR ---
NURSE NOTES: I communicated Dr Carter regarding patient's refusal for medications.
--- NOTE | 2018-09-26 12:35 | NUR ---
NURSE NOTES: Dr Carter order to communicate Psych , I communicated MD Umana, order received.
--- NOTE | 2018-09-26 12:41 | Pulmonology Progress Note ---
Assessment/Plan Problems: (1) Acute encephalopathy (2) Failure to thrive (3) COPD (chronic obstructive pulmonary disease) (4) Sepsis (5) HTN (hypertension) (6) DM (diabetes mellitus) (7) Gastroparesis (8) Seizure disorder Assessment/Plan improving swallow study respiratory treatment calorie count sliding scale seizure precaution. Subjective ROS Limited/Unobtainable: No Constitutional: Reports: no symptoms HEENT: Repors: no symptoms Allergies: Coded Allergies: No Known Allergies (Unverified , 01/05/13) Objective Last 24 Hour Vital Signs Date Time Temp Pulse Resp B/P (MAP) Pulse Ox O2 Delivery O2 Flow Rate FiO2 09/26/18 12:00 97.3 63 16 146/79 (101) 98 09/26/18 09:00 Nasal Cannula 3.0 09/26/18 08:00 97.5 61 16 146/71 (96) 98 09/26/18 04:00 97.7 58 20 143/73 (96) 95 09/26/18 00:00 98.0 60 20 117/68 (84) 95 09/25/18 21:36 63 24 Nasal Cannula 3.0 09/25/18 20:57 Nasal Cannula 3.0 09/25/18 20:00 99.5 82 20 135/74 (94) 94 09/25/18 16:00 98.2 54 20 130/70 (90) 99 Intake and Output 09/25/18 09/26/18 18:59 06:59 Intake Total 120 ml 1000 ml Output Total 400 ml 700 ml Balance -280 ml 300 ml Intake Oral 120 ml IV Total 1000 ml Output Urine Total 400 ml 700 ml Objective General Appearance: cachetic Lines, tubes and drains: peripheral HEENT: normocephalic, atraumatic Neck: non-tender, normal alignment Respiratory/Chest: chest wall non-tender, lungs clear Cardiovascular/Chest: normal rate Abdomen: normal bowel sounds, soft Genitourinary/Rectal: normal genital exam Extremities: normal range of motion Microbiology Date/Time Source Procedure Growth Status 09/24/18 13:30 Blood Blood Culture - Preliminary NO GROWTH AFTER 24 HOURS Resulted 09/24/18 13:10 Blood Blood Culture - Preliminary NO GROWTH AFTER 24 HOURS Resulted 09/24/18 19:30 Nasopharynx Influenza Types A,B Antigen (LIZA) - Final Complete 09/24/18 14:12 Nasal Nares MRSA Culture - Final NO METHICILLIN RESISTANT STAPH AUREUS... Complete 09/24/18 14:12 Rectum VRE Culture - Final NO VANCOMYCIN RESISTANT ENTEROCOCCUS ... Complete 09/24/18 14:12 Rectum - Final NO CARBAPENEM-RESISTANT ENTEROBACTERI... Complete Laboratory Tests 09/26/18 06:05: White Blood Count 9.7, Red Blood Count 3.49L, Hemoglobin 10.3L, Hematocrit 31.9L , Mean Corpuscular Volume 92, Mean Corpuscular Hemoglobin 29.5, Mean Corpuscular Hemoglobin Concent 32.2, Red Cell Distribution Width 13.5, Platelet Count 227, Mean Platelet Volume 5.9L, Neutrophils (%) (Auto) 66.6, Lymphocytes ( %) (Auto) 23.3, Monocytes (%) (Auto) 8.1, Eosinophils (%) (Auto) 1.3, Basophils (%) (Auto) 0.7, Sodium Level 144, Potassium Level 3.5, Chloride Level 108H, Carbon Dioxide Level 26, Anion Gap 11, Blood Urea Nitrogen 14, Creatinine 0.7, Estimat Glomerular Filtration Rate > 60, Glucose Level 112H, Calcium Level 8.4L Current Medications Medications (Trade) Dose Ordered Sig/Kun Route PRN Reason Start Time Stop Time Status Last Admin Dose Admin Acetaminophen (Tylenol) 650 mg Q4H PRN ORAL T>100.5 09/24/18 15:30 10/24/18 15:29 Al Hydroxide/Mg Hydroxide (Mylanta II) 30 ml Q6H PRN ORAL dyspepsia 09/24/18 15:30 10/24/18 15:29 Albuterol/ Ipratropium (Albuterol/ Ipratropium) 3 ml Q4H PRN HHN Shortness of Breath 09/24/18 15:30 09/29/18 15:29 Buspirone HCl (Buspar) 5 mg BID ORAL 09/24/18 18:00 10/24/18 17:59 09/25/18 18:08 Clonidine HCl (Catapres Tab) 0.1 mg Q4H PRN ORAL SBP > 160mmHg 09/24/18 15:30 10/24/18 15:29 Dextrose (Dextrose 50%) 25 ml Q30M PRN IV Hypoglycemia 09/25/18 06:30 10/25/18 06:29 Dextrose (Dextrose 50%) 50 ml Q30M PRN IV Hypoglycemia 09/25/18 06:30 10/25/18 06:29 Erythromycin (Erythrocin) 500 mg Q6HR ORAL 09/25/18 13:00 10/02/18 12:59 09/26/18 05:44 Folic Acid (Folate) 1 mg DAILY ORAL 09/25/18 09:00 10/25/18 08:59 Heparin Sodium (Porcine) (Heparin 5000 units/ml) 5,000 units EVERY 12 HOURS SUBQ 09/24/18 21:00 10/24/18 20:59 09/25/18 21:23 Insulin Aspart (NovoLOG) BEFORE MEALS AND HS SUBQ 09/24/18 17:30 10/24/18 17:29 09/26/18 05:47 Insulin Detemir (Levemir) 10 units DAILY SUBQ 09/25/18 09:00 10/25/18 08:59 09/26/18 08:21 Ketorolac Tromethamine (Toradol 30mg) 30 mg Q6H PRN IV Moderate Pain (Pain Scale 4-6) 09/24/18 15:30 09/29/18 15:29 Levetiracetam 100 ml @ 400 mls/hr Q12HR IVPB 09/25/18 10:30 10/25/18 10:29 09/26/18 08:18 Lorazepam (Ativan) 1 mg Q6H PRN ORAL For Anxiety 09/25/18 09:15 10/02/18 09:14 Morphine Sulfate (Morphine Sulfate) 2 mg Q4H PRN IVP Severe Pain (Pain Scale 7-10) 09/24/18 15:30 10/01/18 15:29 Nitroglycerin (Ntg) 0.4 mg Q5MIN X 3 DOSES PRN SL Prn Chest Pain 09/24/18 15:45 10/24/18 15:44 Olanzapine (ZyPREXA) 5 mg Q12HR ORAL 09/24/18 21:00 10/24/18 20:59 09/25/18 21:23 Ondansetron HCl (Zofran) 4 mg Q6H PRN IVP Nausea & Vomiting 09/24/18 15:30 10/24/18 15:29 Polyethylene Glycol (Miralax) 17 gm HSPRN PRN ORAL Constipation 09/24/18 21:00 10/24/18 20:59 Sodium Chloride 1,000 ml @ 100 mls/hr Q10H IVLG 09/24/18 17:00 10/24/18 16:59 09/26/18 08:17 Temazepam (Restoril) 15 mg HSPRN PRN ORAL Insomnia 09/24/18 21:00 10/01/18 20:59 Valproic Acid (Depakene) 500 mg BID ORAL 09/24/18 18:00 10/24/18 17:59 09/25/18 18:08 Mey Latham MD Sep 26, 2018 12:41
[2018-09-26] MEDS ORDERED: Haloperidol Decanoate 50mg Inj IM SCH (14:00)
--- NOTE | 2018-09-26 14:34 | General Progress Note ---
Assessment/Plan Problem List: (1) UTI (urinary tract infection) ICD Codes: N39.0 - Urinary tract infection, site not specified SNOMED: 68052993 (2) CVA (cerebral vascular accident) ICD Codes: I63.9 - Cerebral infarction, unspecified SNOMED: 997989643 (3) COPD (chronic obstructive pulmonary disease) ICD Codes: J44.9 - Chronic obstructive pulmonary disease, unspecified SNOMED: 06948305 (4) Anemia ICD Codes: D64.9 - Anemia, unspecified SNOMED: 811481941 (5) Seizure disorder ICD Codes: G40.909 - Seizure disorder SNOMED: 408877004 (6) HTN (hypertension) ICD Codes: I10 - Hypertension SNOMED: 30872761 (7) Sepsis ICD Codes: A41.9 - Sepsis, unspecified organism SNOMED: 63585201 (8) DM (diabetes mellitus) ICD Codes: E11.9 - Diabetes mellitus SNOMED: 16327516 Qualifiers: Qualified Codes: E13.8 - Other specified diabetes mellitus with unspecified complications (9) Failure to thrive SNOMED: 48294630 Qualifiers: Qualified Codes: R62.7 - Adult failure to thrive Status: stable, progressing Assessment/Plan pt diet abx o2 pulm tx cbc bmp am dc planning Subjective Constitutional: Reports: weakness Allergies: Coded Allergies: No Known Allergies (Unverified , 01/05/13) All Systems: reviewed and negative except above Subjective calm in bed confused Objective Last 24 Hour Vital Signs Date Time Temp Pulse Resp B/P (MAP) Pulse Ox O2 Delivery O2 Flow Rate FiO2 09/26/18 12:00 97.3 63 16 146/79 (101) 98 09/26/18 09:00 Nasal Cannula 3.0 09/26/18 08:00 97.5 61 16 146/71 (96) 98 09/26/18 04:00 97.7 58 20 143/73 (96) 95 09/26/18 00:00 98.0 60 20 117/68 (84) 95 09/25/18 21:36 63 24 Nasal Cannula 3.0 09/25/18 20:57 Nasal Cannula 3.0 09/25/18 20:00 99.5 82 20 135/74 (94) 94 09/25/18 16:00 98.2 54 20 130/70 (90) 99 Intake and Output 3/19/19 3/20/19 18:59 06:59 Intake Total 120 ml 1000 ml Output Total 400 ml 700 ml Balance -280 ml 300 ml Intake Oral 120 ml IV Total 1000 ml Output Urine Total 400 ml 700 ml Laboratory Tests 09/26/18 06:05: White Blood Count 9.7, Red Blood Count 3.49L, Hemoglobin 10.3L, Hematocrit 31.9L , Mean Corpuscular Volume 92, Mean Corpuscular Hemoglobin 29.5, Mean Corpuscular Hemoglobin Concent 32.2, Red Cell Distribution Width 13.5, Platelet Count 227, Mean Platelet Volume 5.9L, Neutrophils (%) (Auto) 66.6, Lymphocytes ( %) (Auto) 23.3, Monocytes (%) (Auto) 8.1, Eosinophils (%) (Auto) 1.3, Basophils (%) (Auto) 0.7, Sodium Level 144, Potassium Level 3.5, Chloride Level 108H, Carbon Dioxide Level 26, Anion Gap 11, Blood Urea Nitrogen 14, Creatinine 0.7, Estimat Glomerular Filtration Rate > 60, Glucose Level 112H, Calcium Level 8.4L Height (Feet): 5 Height (Inches): 10.00 Weight (Pounds): 127 General Appearance: lethargic EENT: normal ENT inspection Neck: normal alignment Cardiovascular: normal peripheral pulses, normal rate, regular rhythm Respiratory/Chest: chest wall non-tender, lungs clear, normal breath sounds Abdomen: normal bowel sounds, non tender, soft Extremities: normal inspection Edema: no edema noted Arm (L), no edema noted Arm (R), no edema noted Leg (L), no edema noted Leg (R), no edema noted Pedal (L), no edema noted Pedal (R), no edema noted Generalized Neurologic: motor weakness Skin: normal pigmentation, warm/dry Nura Carter DO Sep 26, 2018 14:34
--- NOTE | 2018-09-26 14:50 | Infectious Diseases Prog Note ---
Assessment/Plan Assessment/Plan Abx: None Assessment: Vomiting- probable related to gastropresis FTT -CXR: No acute process Afebrile Mild leukocytosis, suspect reactive- now resolved; no evidence of active infectious process -u/a neg DM2 HTN COPD CVA/TIA w/ L side weakness seizure disorder SNF resident Plan: -Continue to monitor off abx unless febrile, increasing WBC and/or HD unstable -f/u cx -Monitor CBC/CMP, temperatures -aspiration precautions -GI f/u Thank you for this consultation. Will continue to follow along with you. Discussed with RN. Subjective Allergies: Coded Allergies: No Known Allergies (Unverified , 01/05/13) Subjective afebrile no leukocytosis off abx Objective Vital Signs Last 24 Hour Vital Signs Date Time Temp Pulse Resp B/P (MAP) Pulse Ox O2 Delivery O2 Flow Rate FiO2 09/26/18 12:00 97.3 63 16 146/79 (101) 98 09/26/18 09:00 Nasal Cannula 3.0 09/26/18 08:00 97.5 61 16 146/71 (96) 98 09/26/18 04:00 97.7 58 20 143/73 (96) 95 09/26/18 00:00 98.0 60 20 117/68 (84) 95 09/25/18 21:36 63 24 Nasal Cannula 3.0 09/25/18 20:57 Nasal Cannula 3.0 09/25/18 20:00 99.5 82 20 135/74 (94) 94 09/25/18 16:00 98.2 54 20 130/70 (90) 99 Height (Feet): 5 Height (Inches): 10.00 Weight (Pounds): 127 Objective General Appearance: no apparent distress, alert HEENT: bilateral eye normal inspection, bilateral eye PERRL normal pharynx Neck: full range of motion, supple/symm/no masses Respiratory: chest non-tender, lungs clear, normal breath sounds, speaking full sentences Cardiovascular regular rate, rhythm, no edema Gastrointestinal: normal bowel sounds, non tender, soft, non-distended, no guarding, no rebound Genitourinary: normal inspection, no CVA tenderness Musculoskeletal: back normal, gait/station normal, normal range of motion, non- tender Skin: normal color, no rash, warm/dry, well hydrated Microbiology Date/Time Source Procedure Growth Status 3/18/19 13:30 Blood Blood Culture - Preliminary NO GROWTH AFTER 24 HOURS Resulted 09/24/18 13:10 Blood Blood Culture - Preliminary NO GROWTH AFTER 24 HOURS Resulted 09/24/18 19:30 Nasopharynx Influenza Types A,B Antigen (LIZA) - Final Complete 09/24/18 14:12 Nasal Nares MRSA Culture - Final NO METHICILLIN RESISTANT STAPH AUREUS... Complete 09/24/18 14:12 Rectum VRE Culture - Final NO VANCOMYCIN RESISTANT ENTEROCOCCUS ... Complete 09/24/18 14:12 Rectum - Final NO CARBAPENEM-RESISTANT ENTEROBACTERI... Complete Laboratory Tests Test 09/26/18 06:05 White Blood Count 9.7 K/UL (4.8-10.8) Red Blood Count 3.49 M/UL (4.70-6.10) L Hemoglobin 10.3 G/DL (14.2-18.0) L Hematocrit 31.9 % (42.0-52.0) L Mean Corpuscular Volume 92 FL (80-99) Mean Corpuscular Hemoglobin 29.5 PG (27.0-31.0) Mean Corpuscular Hemoglobin Concent 32.2 G/DL (32.0-36.0) Red Cell Distribution Width 13.5 % (11.6-14.8) Platelet Count 227 K/UL (150-450) Mean Platelet Volume 5.9 FL (6.5-10.1) L Neutrophils (%) (Auto) 66.6 % (45.0-75.0) Lymphocytes (%) (Auto) 23.3 % (20.0-45.0) Monocytes (%) (Auto) 8.1 % (1.0-10.0) Eosinophils (%) (Auto) 1.3 % (0.0-3.0) Basophils (%) (Auto) 0.7 % (0.0-2.0) Sodium Level 144 MMOL/L (136-145) Potassium Level 3.5 MMOL/L (3.5-5.1) Chloride Level 108 MMOL/L (98-107) H Carbon Dioxide Level 26 MMOL/L (21-32) Anion Gap 11 mmol/L (5-15) Blood Urea Nitrogen 14 mg/dL (7-18) Creatinine 0.7 MG/DL (0.55-1.30) Estimat Glomerular Filtration Rate > 60 mL/min (>60) Glucose Level 112 MG/DL (74-106) H Calcium Level 8.4 MG/DL (8.5-10.1) L Current Medications Medications (Trade) Dose Ordered Sig/Kun Route PRN Reason Start Time Stop Time Status Last Admin Dose Admin Acetaminophen (Tylenol) 650 mg Q4H PRN ORAL T>100.5 09/24/18 15:30 10/24/18 15:29 Al Hydroxide/Mg Hydroxide (Mylanta II) 30 ml Q6H PRN ORAL dyspepsia 09/24/18 15:30 10/24/18 15:29 Albuterol/ Ipratropium (Albuterol/ Ipratropium) 3 ml Q4H PRN HHN Shortness of Breath 09/24/18 15:30 09/29/18 15:29 Buspirone HCl (Buspar) 5 mg BID ORAL 09/24/18 18:00 10/24/18 17:59 09/25/18 18:08 Clonidine HCl (Catapres Tab) 0.1 mg Q4H PRN ORAL SBP > 160mmHg 09/24/18 15:30 10/24/18 15:29 Dextrose (Dextrose 50%) 25 ml Q30M PRN IV Hypoglycemia 09/25/18 06:30 10/25/18 06:29 Dextrose (Dextrose 50%) 50 ml Q30M PRN IV Hypoglycemia 09/25/18 06:30 10/25/18 06:29 Erythromycin (Erythrocin) 500 mg Q6HR ORAL 09/25/18 13:00 10/02/18 12:59 09/26/18 05:44 Folic Acid (Folate) 1 mg DAILY ORAL 09/25/18 09:00 10/25/18 08:59 Haloperidol Decanoate (Haldol) 50 mg ONCE IM 09/26/18 14:00 09/26/18 16:00 Heparin Sodium (Porcine) (Heparin 5000 units/ml) 5,000 units EVERY 12 HOURS SUBQ 09/24/18 21:00 10/24/18 20:59 09/25/18 21:23 Insulin Aspart (NovoLOG) BEFORE MEALS AND HS SUBQ 09/24/18 17:30 10/24/18 17:29 09/26/18 05:47 Insulin Detemir (Levemir) 10 units DAILY SUBQ 09/25/18 09:00 10/25/18 08:59 09/26/18 08:21 Ketorolac Tromethamine (Toradol 30mg) 30 mg Q6H PRN IV Moderate Pain (Pain Scale 4-6) 09/24/18 15:30 09/29/18 15:29 Levetiracetam 100 ml @ 400 mls/hr Q12HR IVPB 09/25/18 10:30 10/25/18 10:29 09/26/18 08:18 Lorazepam (Ativan) 1 mg Q6H PRN ORAL For Anxiety 09/25/18 09:15 10/02/18 09:14 Morphine Sulfate (Morphine Sulfate) 2 mg Q4H PRN IVP Severe Pain (Pain Scale 7-10) 09/24/18 15:30 10/01/18 15:29 Nitroglycerin (Ntg) 0.4 mg Q5MIN X 3 DOSES PRN SL Prn Chest Pain 09/24/18 15:45 10/24/18 15:44 Olanzapine (ZyPREXA) 5 mg Q12HR ORAL 09/24/18 21:00 10/24/18 20:59 09/25/18 21:23 Ondansetron HCl (Zofran) 4 mg Q6H PRN IVP Nausea & Vomiting 09/24/18 15:30 10/24/18 15:29 Polyethylene Glycol (Miralax) 17 gm HSPRN PRN ORAL Constipation 09/24/18 21:00 10/24/18 20:59 Sodium Chloride 1,000 ml @ 100 mls/hr Q10H IVLG 09/24/18 17:00 10/24/18 16:59 09/26/18 08:17 Temazepam (Restoril) 15 mg HSPRN PRN ORAL Insomnia 09/24/18 21:00 10/01/18 20:59 Valproic Acid (Depakene) 500 mg BID ORAL 09/24/18 18:00 10/24/18 17:59 09/25/18 18:08 Shell Niño M.D. Sep 26, 2018 14:50
--- NOTE | 2018-09-26 15:13 | NUR ---
ST NOTE: SWALLOW STATUS FOLLOWED UP PT'S CONDITIONS. PER RIMA BIRD, PT REFUSED BREAKFAST THIS MORNING AND PT DID NOT EAT LUNCH, ONLY TOOK THE THICKENED LIQUIDS(JUICE AND MILK), NO OVERT S/S OF ASPIRATION. DISCUSSED WITH CARRILLO Nair RE:PT'S CONDITIONS AND POSS PEG IF PO INTAKE IS SUBOPTIMAL. DISCUSSED WITH RIMA BIRD. WILL CHANGED DIET TO LIQUIFIED PUREED, LIKE NECTAR THICK SOUP CONSISTENCY WITH NECTAR THICK LIQUIDS WITH STRICT ASPIRATION PRECAUTIONS WITH 1TO1 FEEDING. UPDATED ASPIRATION PRECAUTIONS SIGN.
[2018-09-26 16:00] VITALS: BP 133/93
--- NOTE | 2018-09-26 17:45 | Progress Note ---
DATE: 09/26/2018 SUBJECTIVE: This is a 67-year-old male patient with generalized weakness, dehydration, failure to thrive. That is why he is at [facility] currently. He also has agitation, irritability, altered mental status, decline in cognition below his baseline. That is why, his attending physician has requested daily psychiatric consultation for this patient to be seen. This patient still has some psychomotor agitation, irritability, confusion worsened by stress of his medical illness. That is why, his attending has requested daily psychiatric consultation. He has sepsis, leukocytosis, diabetes. This patient does have some confusion, altered mental status, decline in cognition below his baseline and that is why he does require daily psychiatric consultation at this time. He is impulsive. He has minimal support system. MENTAL STATUS EXAMINATION: This is a 67-year-old male. Appearance is disheveled. Attitude irritable and agitated. Affect, guarded and restricted. Intellect poor. Mood depressed and anxious. Motor activity, psychomotor agitation. Attention span is poor. Orientation x2. Speech is low volume. Thought process, disorganized and illogical. Insight and judgment is poor. DIAGNOSIS: Schizoaffective, bipolar type. PLAN: My plan for this patient is to treat him with a psychotropic medication regimen consisting of Zyprexa 5 mg orally q.12 hours to reduce psychosis and also to stabilize his mood and Depakote 500 mg twice a day, BuSpar 5 mg twice a day for anxiety and also Ativan 1 mg every 6 hours p.r.n. anxiety and agitation. In addition to medication management, I am also going to provide him 20 minutes of cognitive behavioral therapy to help him identify his automatic negative thoughts help him convert those negative thoughts to more positive thoughts to reduce depression, anxiety, suicidality. Chart reviewed. Discussed with staff. Seen and assessed in his room. Berto Umana M.D. DR: CHEIKH JOB#: [id number] CC:
--- NOTE | 2018-09-26 19:25 | NUR ---
HAND-OFF: Report given to MARGE Palma.
[2018-09-26 20:00] VITALS: BP 145/72
--- NOTE | 2018-09-26 20:13 | NUR ---
NURSE NOTES: RECEIVED PATIENT IN BED, RESTING AND RESPONSIVE TO LIGHT SHAKING. IV INTACT. NO SIGNS OF RESPIRATORY DISTRESS, PATIENT ON NC 2L. PLACED CONDOM CATHETER WITH ANCHOR. BED IN LOWEST POSITION, CALL LIGHT WITHIN REACH. WILL CONTINUE TO MONITOR.
[2018-09-27] VITALS (8 sets, daily range): BP systolic 118–162; BP diastolic 71–87
[2018-09-27] MEDS: NovoLOG Insulin Flexpen SUBQ SCH ×4 (06:30→20:36)
--- NOTE | 2018-09-27 06:38 | General Progress Note ---
Assessment/Plan Problem List: (1) COPD (chronic obstructive pulmonary disease) ICD Codes: J44.9 - Chronic obstructive pulmonary disease, unspecified SNOMED: 03444750 (2) Acute encephalopathy ICD Codes: G93.40 - Encephalopathy, unspecified SNOMED: 95597294, 992530056 (3) DM (diabetes mellitus) ICD Codes: E11.9 - Diabetes mellitus SNOMED: 29212603 Qualifiers: Qualified Codes: E13.8 - Other specified diabetes mellitus with unspecified complications (4) HTN (hypertension) ICD Codes: I10 - Hypertension SNOMED: 29477303 Assessment/Plan reduce Levemir to 6 units daily continue NISS ac / hs Subjective Allergies: Coded Allergies: No Known Allergies (Unverified , 01/05/13) All Systems: reviewed and negative except above Subjective events noted hypoglycemia this morning Item Value Date Time Bedside Blood Glucose 59 mg/dl L 09/27/18 0629 Bedside Blood Glucose 219 mg/dl H 09/26/18 2100 Bedside Blood Glucose 89 mg/dl 09/26/18 1630 Bedside Blood Glucose 93 mg/dl 09/26/18 0821 Bedside Blood Glucose 106 mg/dl 09/26/18 1130 Bedside Blood Glucose 119 mg/dl 09/26/18 0630 Objective Last 24 Hour Vital Signs Date Time Temp Pulse Resp B/P (MAP) Pulse Ox O2 Delivery O2 Flow Rate FiO2 09/27/18 04:00 97.1 60 18 149/74 (99) 98 09/27/18 02:00 97.2 62 20 155/87 (109) 98 09/27/18 00:00 97.0 66 20 159/86 (110) 96 09/26/18 21:00 Nasal Cannula 3.0 09/26/18 20:47 64 20 Nasal Cannula 3.0 32 09/26/18 20:00 97.5 65 18 145/72 (96) 97 09/26/18 16:00 98.0 72 18 133/93 (106) 96 09/26/18 12:00 97.3 63 16 146/79 (101) 98 09/26/18 09:00 Nasal Cannula 3.0 09/26/18 08:00 97.5 61 16 146/71 (96) 98 Intake and Output 09/26/18 09/27/18 19:00 07:00 Intake Total 1140 ml 800 ml Balance 1140 ml 800 ml Intake Oral 240 ml IV Total 900 ml 800 ml # Voids 4 Height (Feet): 5 Height (Inches): 10.00 Weight (Pounds): 127 General Appearance: no apparent distress Neck: normal alignment Cardiovascular: normal rate Respiratory/Chest: normal breath sounds Abdomen: normal bowel sounds Objective Current Medications Medications (Trade) Dose Ordered Sig/Kun Route PRN Reason Start Time Stop Time Status Last Admin Dose Admin Acetaminophen (Tylenol) 650 mg Q4H PRN ORAL T>100.5 09/24/18 15:30 10/24/18 15:29 Al Hydroxide/Mg Hydroxide (Mylanta II) 30 ml Q6H PRN ORAL dyspepsia 09/24/18 15:30 10/24/18 15:29 Albuterol/ Ipratropium (Albuterol/ Ipratropium) 3 ml Q4H PRN HHN Shortness of Breath 09/24/18 15:30 09/29/18 15:29 Buspirone HCl (Buspar) 5 mg BID ORAL 09/24/18 18:00 10/24/18 17:59 09/26/18 17:35 Clonidine HCl (Catapres Tab) 0.1 mg Q4H PRN ORAL SBP > 160mmHg 09/24/18 15:30 10/24/18 15:29 Dextrose (Dextrose 50%) 25 ml Q30M PRN IV Hypoglycemia 09/25/18 06:30 10/25/18 06:29 Dextrose (Dextrose 50%) 50 ml Q30M PRN IV Hypoglycemia 09/25/18 06:30 10/25/18 06:29 Erythromycin (Erythrocin) 500 mg Q6HR ORAL 09/25/18 13:00 10/02/18 12:59 09/27/18 06:27 Folic Acid (Folate) 1 mg DAILY ORAL 09/25/18 09:00 10/25/18 08:59 Heparin Sodium (Porcine) (Heparin 5000 units/ml) 5,000 units EVERY 12 HOURS SUBQ 09/24/18 21:00 10/24/18 20:59 09/26/18 20:35 Insulin Aspart (NovoLOG) BEFORE MEALS AND HS SUBQ 09/24/18 17:30 10/24/18 17:29 09/26/18 20:37 Insulin Detemir (Levemir) 10 units DAILY SUBQ 09/25/18 09:00 10/25/18 08:59 09/26/18 08:21 Ketorolac Tromethamine (Toradol 30mg) 30 mg Q6H PRN IV Moderate Pain (Pain Scale 4-6) 09/24/18 15:30 09/29/18 15:29 Levetiracetam 100 ml @ 400 mls/hr Q12HR IVPB 09/25/18 10:30 10/25/18 10:29 09/26/18 21:44 Lorazepam (Ativan) 1 mg Q6H PRN ORAL For Anxiety 09/25/18 09:15 10/02/18 09:14 Morphine Sulfate (Morphine Sulfate) 2 mg Q4H PRN IVP Severe Pain (Pain Scale 7-10) 09/24/18 15:30 10/01/18 15:29 Nitroglycerin (Ntg) 0.4 mg Q5MIN X 3 DOSES PRN SL Prn Chest Pain 09/24/18 15:45 10/24/18 15:44 Olanzapine (ZyPREXA) 5 mg Q12HR ORAL 09/24/18 21:00 10/24/18 20:59 09/26/18 20:34 Ondansetron HCl (Zofran) 4 mg Q6H PRN IVP Nausea & Vomiting 09/24/18 15:30 10/24/18 15:29 Polyethylene Glycol (Miralax) 17 gm HSPRN PRN ORAL Constipation 09/24/18 21:00 10/24/18 20:59 Sodium Chloride 1,000 ml @ 100 mls/hr Q10H IVLG 09/24/18 17:00 10/24/18 16:59 09/27/18 05:00 Temazepam (Restoril) 15 mg HSPRN PRN ORAL Insomnia 09/24/18 21:00 10/01/18 20:59 Valproic Acid (Depakene) 500 mg BID ORAL 09/24/18 18:00 10/24/18 17:59 09/26/18 17:35 Chetan Barrientos MD Sep 27, 2018 06:38
--- NOTE | 2018-09-27 07:06 | NUR ---
NURSE NOTES: BS at 0600 was 54. Gave apple juice plus 4 packets of sugar. rechecked BS at 0700, now at 154. AM nurse aware and will monitor.
--- NOTE | 2018-09-27 07:09 | NUR ---
HAND-OFF: Report given to MARGE Roblero.
--- NOTE | 2018-09-27 07:32 | NUR ---
NURSE NOTES: Patient alert x2, confused; on nasal cannula at 2 liter, no sign of distress and shortness of breath; no sign of chest pain; IV FRA fluid running; on calory count and hospital nursing assistant notified; bed side rails padded for seizure percussion; bed at lowest position, side rials up x2, breaks engaged; will keep monitoring blood sugar.
[2018-09-27 07:57] LABS: BASOPHILS % (AUTO) 0.8 % (0.0-2.0); HEMATOCRIT 34.1 % (42.0-52.0); HEMOGLOBIN 11.3 G/DL (14.2-18.0); LYMPHOCYTES % (AUTO) 19.1 % (20.0-45.0); MEAN CORPUSCULAR VOLUME 90 FL (80-99); MONOCYTES % (AUTO) 7.3 % (1.0-10.0); NEUTROPHILS % (AUTO) 71.8 % (45.0-75.0); PLATELET COUNT 258 K/UL (150-450); RED BLOOD COUNT 3.81 M/UL (4.70-6.10); RED CELL DISTRIBUTION WIDTH 12.9 % (11.6-14.8); WHITE BLOOD COUNT 9.2 K/UL (4.8-10.8)
[2018-09-27 08:24] LABS: ANION GAP 11 mmol/L (5-15); BLOOD UREA NITROGEN 8 mg/dL (7-18); CALCIUM 8.7 MG/DL (8.5-10.1); CARBON DIOXIDE 27 MMOL/L (21-32); CHLORIDE 106 MMOL/L (98-107); CREATININE 0.7 MG/DL (0.55-1.30); PHOSPHORUS 2.7 MG/DL (2.5-4.9); POTASSIUM 3.3 MMOL/L (3.5-5.1); SODIUM 144 MMOL/L (136-145)
[2018-09-27] MEDS: Heparin 5000 units/ml inj SUBQ SCH ×2 (08:32→20:35)
[2018-09-27] MEDS: BusPIRone 5mg Tab ORAL SCH ×2 (08:32→17:29)
[2018-09-27] MEDS: levETIRAcetam 500mg/NS100ml 100 ML IVPB SCH ×2 (08:32→20:34)
[2018-09-27] MEDS ORDERED: Levemir Flexpen SUBQ SCH (09:00)
--- NOTE | 2018-09-27 10:59 | NUR ---
NURSE NOTES: Patient's K 3.3 and Mg 1.3, I communicated MD Carter, waiting for order.
--- NOTE | 2018-09-27 11:21 | NUR ---
NURSE NOTES: Order received from MD Carter, carried out as ordered. Will keep monitoring.
--- NOTE | 2018-09-27 11:33 | GI Progress Note ---
Assessment/Plan Problems: (1) Gastroparesis ICD Codes: K31.84 - Gastroparesis SNOMED: 198777545 (2) Failure to thrive SNOMED: 93396272 Qualifiers: Qualified Codes: R62.7 - Adult failure to thrive (3) Uncontrolled seizures ICD Codes: R56.9 - Unspecified convulsions SNOMED: 28920284 (4) Dysphagia ICD Codes: R13.10 - Dysphagia, unspecified SNOMED: 56779872, 536891708 (5) Anemia ICD Codes: D64.9 - Anemia, unspecified SNOMED: 601333374 Status: unchanged Status Narrative Discussed with Dr. Stephens Assessment/Plan ST evaluation reviewed, passed on CCHO(MEDIUM) MOIST PUREE WITH NECTAR THICK LIQUIDS. Calorie count for 48 hours in progress Will consider PEG if nutritional needs are not met Erythromycin ATC given possible gastroparesis secondary to DM PPI OB stool rule out GI bleed Monitor H&H, PRN transfusion Zofran as needed Electrolyte correction Follow labs The patient was seen and examined at bedside and all new and available data was reviewed in the patients chart. I agree with the above findings, impression and plan. (Patient seen earlier today. Signature stamp does not reflect patient encounter time.). - James Stephens MD Subjective Subjective Limited Objective Last 24 Hour Vital Signs Date Time Temp Pulse Resp B/P (MAP) Pulse Ox O2 Delivery O2 Flow Rate FiO2 09/27/18 11:16 97.0 65 20 155/82 (106) 96 09/27/18 09:49 162/71 09/27/18 09:00 Nasal Cannula 3.0 09/27/18 08:00 97.2 62 20 162/71 (101) 95 09/27/18 04:00 97.1 60 18 149/74 (99) 98 09/27/18 02:00 97.2 62 20 155/87 (109) 98 09/27/18 00:00 97.0 66 20 159/86 (110) 96 09/26/18 21:00 Nasal Cannula 3.0 09/26/18 20:47 64 20 Nasal Cannula 3.0 32 09/26/18 20:00 97.5 65 18 145/72 (96) 97 09/26/18 16:00 98.0 72 18 133/93 (106) 96 09/26/18 12:00 97.3 63 16 146/79 (101) 98 Intake and Output 09/26/18 09/27/18 19:00 07:00 Intake Total 1140 ml 1000 ml Output Total 1300 ml Balance 1140 ml -300 ml Intake Oral 240 ml IV Total 900 ml 1000 ml Output Urine Total 1300 ml # Voids 4 Laboratory Tests Test 09/27/18 05:08 White Blood Count 9.2 K/UL (4.8-10.8) Red Blood Count 3.81 M/UL (4.70-6.10) L Hemoglobin 11.3 G/DL (14.2-18.0) L Hematocrit 34.1 % (42.0-52.0) L Mean Corpuscular Volume 90 FL (80-99) Mean Corpuscular Hemoglobin 29.5 PG (27.0-31.0) Mean Corpuscular Hemoglobin Concent 33.0 G/DL (32.0-36.0) Red Cell Distribution Width 12.9 % (11.6-14.8) Platelet Count 258 K/UL (150-450) Mean Platelet Volume 5.5 FL (6.5-10.1) L Neutrophils (%) (Auto) 71.8 % (45.0-75.0) Lymphocytes (%) (Auto) 19.1 % (20.0-45.0) L Monocytes (%) (Auto) 7.3 % (1.0-10.0) Eosinophils (%) (Auto) 1.0 % (0.0-3.0) Basophils (%) (Auto) 0.8 % (0.0-2.0) Sodium Level 144 MMOL/L (136-145) Potassium Level 3.3 MMOL/L (3.5-5.1) L Chloride Level 106 MMOL/L (98-107) Carbon Dioxide Level 27 MMOL/L (21-32) Anion Gap 11 mmol/L (5-15) Blood Urea Nitrogen 8 mg/dL (7-18) Creatinine 0.7 MG/DL (0.55-1.30) Estimat Glomerular Filtration Rate > 60 mL/min (>60) Glucose Level 43 MG/DL (74-106) L Calcium Level 8.7 MG/DL (8.5-10.1) Phosphorus Level 2.7 MG/DL (2.5-4.9) Magnesium Level 1.3 MG/DL (1.8-2.4) L Height (Feet): 5 Height (Inches): 10.00 Weight (Pounds): 127 General Appearance: WD/WN, no apparent distress, alert Cardiovascular: normal rate Respiratory/Chest: normal breath sounds, no respiratory distress Abdominal Exam: normal bowel sounds, non tender, soft Extremities: non-tender Objective Reported patient ate 100% of dinner last night with family members at bedside Orville Muñiz NP Sep 27, 2018 11:33
--- NOTE | 2018-09-27 12:36 | Pulmonology Progress Note ---
Assessment/Plan Problems: (1) Acute encephalopathy (2) Failure to thrive (3) COPD (chronic obstructive pulmonary disease) (4) Sepsis (5) HTN (hypertension) (6) DM (diabetes mellitus) (7) Gastroparesis (8) Seizure disorder Assessment/Plan improving swallow study respiratory treatment calorie count sliding scale seizure precaution. dc planning all reviewed Subjective Constitutional: Reports: no symptoms HEENT: Repors: no symptoms Allergies: Coded Allergies: No Known Allergies (Unverified , 01/05/13) Objective Last 24 Hour Vital Signs Date Time Temp Pulse Resp B/P (MAP) Pulse Ox O2 Delivery O2 Flow Rate FiO2 09/27/18 12:26 97.5 64 20 158/81 (106) 94 09/27/18 11:16 97.0 65 20 155/82 (106) 96 09/27/18 09:49 162/71 09/27/18 09:00 Nasal Cannula 3.0 09/27/18 08:00 97.2 62 20 162/71 (101) 95 09/27/18 04:00 97.1 60 18 149/74 (99) 98 09/27/18 02:00 97.2 62 20 155/87 (109) 98 09/27/18 00:00 97.0 66 20 159/86 (110) 96 09/26/18 21:00 Nasal Cannula 3.0 09/26/18 20:47 64 20 Nasal Cannula 3.0 32 09/26/18 20:00 97.5 65 18 145/72 (96) 97 09/26/18 16:00 98.0 72 18 133/93 (106) 96 Intake and Output 09/26/18 09/27/18 18:59 06:59 Intake Total 1240 ml 900 ml Output Total 1300 ml Balance 1240 ml -400 ml Intake Oral 240 ml IV Total 1000 ml 900 ml Output Urine Total 1300 ml # Voids 4 Objective General Appearance: cachetic Lines, tubes and drains: peripheral HEENT: normocephalic, atraumatic Neck: non-tender, normal alignment Respiratory/Chest: chest wall non-tender, lungs clear Cardiovascular/Chest: normal rate Abdomen: normal bowel sounds, soft Genitourinary/Rectal: normal genital exam Extremities: normal range of motion Microbiology Date/Time Source Procedure Growth Status 09/24/18 13:30 Blood Blood Culture - Preliminary NO GROWTH AFTER 48 HOURS Resulted 09/24/18 13:10 Blood Blood Culture - Preliminary NO GROWTH AFTER 48 HOURS Resulted 09/24/18 19:30 Nasopharynx Influenza Types A,B Antigen (LIZA) - Final Complete 09/24/18 14:12 Nasal Nares MRSA Culture - Final NO METHICILLIN RESISTANT STAPH AUREUS... Complete 09/24/18 14:12 Rectum VRE Culture - Final NO VANCOMYCIN RESISTANT ENTEROCOCCUS ... Complete 09/24/18 14:12 Rectum - Final NO CARBAPENEM-RESISTANT ENTEROBACTERI... Complete Laboratory Tests 09/27/18 05:08: White Blood Count 9.2, Red Blood Count 3.81L, Hemoglobin 11.3L, Hematocrit 34.1L , Mean Corpuscular Volume 90, Mean Corpuscular Hemoglobin 29.5, Mean Corpuscular Hemoglobin Concent 33.0, Red Cell Distribution Width 12.9, Platelet Count 258, Mean Platelet Volume 5.5L, Neutrophils (%) (Auto) 71.8, Lymphocytes ( %) (Auto) 19.1L, Monocytes (%) (Auto) 7.3, Eosinophils (%) (Auto) 1.0, Basophils (%) (Auto) 0.8, Sodium Level 144, Potassium Level 3.3L, Chloride Level 106, Carbon Dioxide Level 27, Anion Gap 11, Blood Urea Nitrogen 8, Creatinine 0.7, Estimat Glomerular Filtration Rate > 60, Glucose Level 43L, Calcium Level 8.7, Phosphorus Level 2.7, Magnesium Level 1.3L Current Medications Medications (Trade) Dose Ordered Sig/Kun Route PRN Reason Start Time Stop Time Status Last Admin Dose Admin Acetaminophen (Tylenol) 650 mg Q4H PRN ORAL T>100.5 09/24/18 15:30 10/24/18 15:29 Al Hydroxide/Mg Hydroxide (Mylanta II) 30 ml Q6H PRN ORAL dyspepsia 09/24/18 15:30 10/24/18 15:29 Albuterol/ Ipratropium (Albuterol/ Ipratropium) 3 ml Q4H PRN HHN Shortness of Breath 09/24/18 15:30 09/29/18 15:29 Buspirone HCl (Buspar) 5 mg BID ORAL 09/24/18 18:00 10/24/18 17:59 09/26/18 17:35 Clonidine HCl (Catapres Tab) 0.1 mg Q4H PRN ORAL SBP > 160mmHg 09/24/18 15:30 10/24/18 15:29 09/27/18 09:49 Dextrose (Dextrose 50%) 25 ml Q30M PRN IV Hypoglycemia 09/25/18 06:30 10/25/18 06:29 Dextrose (Dextrose 50%) 50 ml Q30M PRN IV Hypoglycemia 09/25/18 06:30 10/25/18 06:29 Erythromycin (Erythrocin) 500 mg Q6HR ORAL 09/25/18 13:00 10/02/18 12:59 09/27/18 11:42 Folic Acid (Folate) 1 mg DAILY ORAL 09/25/18 09:00 10/25/18 08:59 Heparin Sodium (Porcine) (Heparin 5000 units/ml) 5,000 units EVERY 12 HOURS SUBQ 09/24/18 21:00 10/24/18 20:59 09/26/18 20:35 Insulin Aspart (NovoLOG) BEFORE MEALS AND HS SUBQ 09/24/18 17:30 10/24/18 17:29 09/27/18 11:44 Insulin Detemir (Levemir) 6 units DAILY SUBQ 09/27/18 09:00 10/25/18 08:59 09/27/18 08:30 Ketorolac Tromethamine (Toradol 30mg) 30 mg Q6H PRN IV Moderate Pain (Pain Scale 4-6) 09/24/18 15:30 09/29/18 15:29 Levetiracetam 100 ml @ 400 mls/hr Q12HR IVPB 09/25/18 10:30 10/25/18 10:29 09/26/18 21:44 Lorazepam (Ativan) 1 mg Q6H PRN ORAL For Anxiety 09/25/18 09:15 10/02/18 09:14 Magnesium Sulfate 100 ml @ 100 mls/hr Q1H IVPB 09/27/18 12:30 09/27/18 14:29 09/27/18 12:06 Morphine Sulfate (Morphine Sulfate) 2 mg Q4H PRN IVP Severe Pain (Pain Scale 7-10) 09/24/18 15:30 10/01/18 15:29 Nitroglycerin (Ntg) 0.4 mg Q5MIN X 3 DOSES PRN SL Prn Chest Pain 09/24/18 15:45 10/24/18 15:44 Olanzapine (ZyPREXA) 5 mg Q12HR ORAL 09/24/18 21:00 10/24/18 20:59 09/26/18 20:34 Ondansetron HCl (Zofran) 4 mg Q6H PRN IVP Nausea & Vomiting 09/24/18 15:30 10/24/18 15:29 Polyethylene Glycol (Miralax) 17 gm HSPRN PRN ORAL Constipation 09/24/18 21:00 10/24/18 20:59 Potassium Chloride (K-Dur) 40 meq ONCE ORAL 09/27/18 11:30 09/27/18 13:00 09/27/18 11:42 Sodium Chloride 1,000 ml @ 100 mls/hr Q10H IVLG 09/24/18 17:00 10/24/18 16:59 09/27/18 05:00 Temazepam (Restoril) 15 mg HSPRN PRN ORAL Insomnia 09/24/18 21:00 10/01/18 20:59 Valproic Acid (Depakene) 500 mg BID ORAL 09/24/18 18:00 10/24/18 17:59 09/26/18 17:35 Mey Latham MD Sep 27, 2018 12:36
--- NOTE | 2018-09-27 13:37 | Infectious Diseases Prog Note ---
Assessment/Plan Assessment/Plan Abx: None Assessment: Vomiting- probable related to gastropresis FTT -CXR: No acute process Afebrile Mild leukocytosis, suspect reactive- now resolved; no evidence of active infectious process -u/a neg -Bcx NTD DM2 HTN COPD CVA/TIA w/ L side weakness seizure disorder SNF resident Plan: -Continue to monitor off abx unless febrile, increasing WBC and/or HD unstable -f/u cx -Monitor CBC/CMP, temperatures -aspiration precautions -GI f/u Thank you for this consultation. Will continue to follow along with you. Discussed with RN. Subjective Allergies: Coded Allergies: No Known Allergies (Unverified , 01/05/13) Subjective afebrile no leukocytosis off abx Bcx NTD Objective Vital Signs Last 24 Hour Vital Signs Date Time Temp Pulse Resp B/P (MAP) Pulse Ox O2 Delivery O2 Flow Rate FiO2 09/27/18 12:26 97.5 64 20 158/81 (106) 94 09/27/18 11:16 97.0 65 20 155/82 (106) 96 09/27/18 09:49 162/71 09/27/18 09:00 Nasal Cannula 3.0 09/27/18 08:00 97.2 62 20 162/71 (101) 95 09/27/18 04:00 97.1 60 18 149/74 (99) 98 09/27/18 02:00 97.2 62 20 155/87 (109) 98 09/27/18 00:00 97.0 66 20 159/86 (110) 96 09/26/18 21:00 Nasal Cannula 3.0 09/26/18 20:47 64 20 Nasal Cannula 3.0 32 09/26/18 20:00 97.5 65 18 145/72 (96) 97 09/26/18 16:00 98.0 72 18 133/93 (106) 96 Height (Feet): 5 Height (Inches): 10.00 Weight (Pounds): 127 Objective General Appearance: no apparent distress, alert HEENT: bilateral eye normal inspection, bilateral eye PERRL normal pharynx Neck: full range of motion, supple/symm/no masses Respiratory: chest non-tender, lungs clear, normal breath sounds, speaking full sentences Cardiovascular regular rate, rhythm, no edema Gastrointestinal: normal bowel sounds, non tender, soft, non-distended, no guarding, no rebound Genitourinary: normal inspection, no CVA tenderness Musculoskeletal: back normal, gait/station normal, normal range of motion, non- tender Skin: normal color, no rash, warm/dry, well hydrated Microbiology Date/Time Source Procedure Growth Status 09/24/18 19:30 Nasopharynx Influenza Types A,B Antigen (LIZA) - Final Complete 09/24/18 14:12 Nasal Nares MRSA Culture - Final NO METHICILLIN RESISTANT STAPH AUREUS... Complete 09/24/18 14:12 Rectum VRE Culture - Final NO VANCOMYCIN RESISTANT ENTEROCOCCUS ... Complete 09/24/18 14:12 Rectum - Final NO CARBAPENEM-RESISTANT ENTEROBACTERI... Complete Laboratory Tests Test 09/27/18 05:08 White Blood Count 9.2 K/UL (4.8-10.8) Red Blood Count 3.81 M/UL (4.70-6.10) L Hemoglobin 11.3 G/DL (14.2-18.0) L Hematocrit 34.1 % (42.0-52.0) L Mean Corpuscular Volume 90 FL (80-99) Mean Corpuscular Hemoglobin 29.5 PG (27.0-31.0) Mean Corpuscular Hemoglobin Concent 33.0 G/DL (32.0-36.0) Red Cell Distribution Width 12.9 % (11.6-14.8) Platelet Count 258 K/UL (150-450) Mean Platelet Volume 5.5 FL (6.5-10.1) L Neutrophils (%) (Auto) 71.8 % (45.0-75.0) Lymphocytes (%) (Auto) 19.1 % (20.0-45.0) L Monocytes (%) (Auto) 7.3 % (1.0-10.0) Eosinophils (%) (Auto) 1.0 % (0.0-3.0) Basophils (%) (Auto) 0.8 % (0.0-2.0) Sodium Level 144 MMOL/L (136-145) Potassium Level 3.3 MMOL/L (3.5-5.1) L Chloride Level 106 MMOL/L (98-107) Carbon Dioxide Level 27 MMOL/L (21-32) Anion Gap 11 mmol/L (5-15) Blood Urea Nitrogen 8 mg/dL (7-18) Creatinine 0.7 MG/DL (0.55-1.30) Estimat Glomerular Filtration Rate > 60 mL/min (>60) Glucose Level 43 MG/DL (74-106) L Calcium Level 8.7 MG/DL (8.5-10.1) Phosphorus Level 2.7 MG/DL (2.5-4.9) Magnesium Level 1.3 MG/DL (1.8-2.4) L Current Medications Medications (Trade) Dose Ordered Sig/Kun Route PRN Reason Start Time Stop Time Status Last Admin Dose Admin Acetaminophen (Tylenol) 650 mg Q4H PRN ORAL T>100.5 09/24/18 15:30 10/24/18 15:29 Al Hydroxide/Mg Hydroxide (Mylanta II) 30 ml Q6H PRN ORAL dyspepsia 09/24/18 15:30 10/24/18 15:29 Albuterol/ Ipratropium (Albuterol/ Ipratropium) 3 ml Q4H PRN HHN Shortness of Breath 09/24/18 15:30 09/29/18 15:29 Buspirone HCl (Buspar) 5 mg BID ORAL 09/24/18 18:00 10/24/18 17:59 09/26/18 17:35 Clonidine HCl (Catapres Tab) 0.1 mg Q4H PRN ORAL SBP > 160mmHg 09/24/18 15:30 10/24/18 15:29 09/27/18 09:49 Dextrose (Dextrose 50%) 25 ml Q30M PRN IV Hypoglycemia 09/25/18 06:30 10/25/18 06:29 Dextrose (Dextrose 50%) 50 ml Q30M PRN IV Hypoglycemia 09/25/18 06:30 10/25/18 06:29 Erythromycin (Erythrocin) 500 mg Q6HR ORAL 09/25/18 13:00 10/02/18 12:59 09/27/18 11:42 Folic Acid (Folate) 1 mg DAILY ORAL 09/25/18 09:00 10/25/18 08:59 Heparin Sodium (Porcine) (Heparin 5000 units/ml) 5,000 units EVERY 12 HOURS SUBQ 09/24/18 21:00 10/24/18 20:59 09/26/18 20:35 Insulin Aspart (NovoLOG) BEFORE MEALS AND HS SUBQ 09/24/18 17:30 10/24/18 17:29 09/27/18 11:44 Insulin Detemir (Levemir) 6 units DAILY SUBQ 09/27/18 09:00 10/25/18 08:59 09/27/18 08:30 Ketorolac Tromethamine (Toradol 30mg) 30 mg Q6H PRN IV Moderate Pain (Pain Scale 4-6) 09/24/18 15:30 09/29/18 15:29 Levetiracetam 100 ml @ 400 mls/hr Q12HR IVPB 09/25/18 10:30 10/25/18 10:29 09/26/18 21:44 Lorazepam (Ativan) 1 mg Q6H PRN ORAL For Anxiety 09/25/18 09:15 10/02/18 09:14 Magnesium Sulfate 100 ml @ 100 mls/hr Q1H IVPB 09/27/18 12:30 09/27/18 14:29 09/27/18 13:26 Morphine Sulfate (Morphine Sulfate) 2 mg Q4H PRN IVP Severe Pain (Pain Scale 7-10) 09/24/18 15:30 10/01/18 15:29 Nitroglycerin (Ntg) 0.4 mg Q5MIN X 3 DOSES PRN SL Prn Chest Pain 09/24/18 15:45 10/24/18 15:44 Olanzapine (ZyPREXA) 5 mg Q12HR ORAL 09/24/18 21:00 10/24/18 20:59 09/26/18 20:34 Ondansetron HCl (Zofran) 4 mg Q6H PRN IVP Nausea & Vomiting 09/24/18 15:30 10/24/18 15:29 Polyethylene Glycol (Miralax) 17 gm HSPRN PRN ORAL Constipation 09/24/18 21:00 10/24/18 20:59 Sodium Chloride 1,000 ml @ 100 mls/hr Q10H IVLG 09/24/18 17:00 10/24/18 16:59 09/27/18 05:00 Temazepam (Restoril) 15 mg HSPRN PRN ORAL Insomnia 09/24/18 21:00 10/01/18 20:59 Valproic Acid (Depakene) 500 mg BID ORAL 09/24/18 18:00 10/24/18 17:59 09/26/18 17:35 Shell Niño M.D. Sep 27, 2018 13:37
--- NOTE | 2018-09-27 14:37 | General Progress Note ---
Assessment/Plan Problem List: (1) UTI (urinary tract infection) ICD Codes: N39.0 - Urinary tract infection, site not specified SNOMED: 43726722 (2) CVA (cerebral vascular accident) ICD Codes: I63.9 - Cerebral infarction, unspecified SNOMED: 115739371 (3) COPD (chronic obstructive pulmonary disease) ICD Codes: J44.9 - Chronic obstructive pulmonary disease, unspecified SNOMED: 41529725 (4) Anemia ICD Codes: D64.9 - Anemia, unspecified SNOMED: 020052650 (5) Seizure disorder ICD Codes: G40.909 - Seizure disorder SNOMED: 661203307 (6) HTN (hypertension) ICD Codes: I10 - Hypertension SNOMED: 43882073 (7) Sepsis ICD Codes: A41.9 - Sepsis, unspecified organism SNOMED: 51939833 (8) DM (diabetes mellitus) ICD Codes: E11.9 - Diabetes mellitus SNOMED: 39034526 Qualifiers: Qualified Codes: E13.8 - Other specified diabetes mellitus with unspecified complications (9) Failure to thrive SNOMED: 10607233 Qualifiers: Qualified Codes: R62.7 - Adult failure to thrive Status: unchanged Assessment/Plan pt diet abx o2 pulm tx cbc bmp am dc planning Subjective Constitutional: Reports: weakness Allergies: Coded Allergies: No Known Allergies (Unverified , 01/05/13) All Systems: reviewed and negative except above Subjective calm in bed confused Objective Last 24 Hour Vital Signs Date Time Temp Pulse Resp B/P (MAP) Pulse Ox O2 Delivery O2 Flow Rate FiO2 09/27/18 12:26 97.5 64 20 158/81 (106) 94 09/27/18 11:16 97.0 65 20 155/82 (106) 96 09/27/18 09:49 162/71 09/27/18 09:00 Nasal Cannula 3.0 09/27/18 08:00 97.2 62 20 162/71 (101) 95 09/27/18 04:00 97.1 60 18 149/74 (99) 98 09/27/18 02:00 97.2 62 20 155/87 (109) 98 09/27/18 00:00 97.0 66 20 159/86 (110) 96 09/26/18 21:00 Nasal Cannula 3.0 09/26/18 20:47 64 20 Nasal Cannula 3.0 32 09/26/18 20:00 97.5 65 18 145/72 (96) 97 09/26/18 16:00 98.0 72 18 133/93 (106) 96 Intake and Output 09/26/18 09/27/18 18:59 06:59 Intake Total 1240 ml 900 ml Output Total 1300 ml Balance 1240 ml -400 ml Intake Oral 240 ml IV Total 1000 ml 900 ml Output Urine Total 1300 ml # Voids 4 Laboratory Tests 09/27/18 05:08: White Blood Count 9.2, Red Blood Count 3.81L, Hemoglobin 11.3L, Hematocrit 34.1L , Mean Corpuscular Volume 90, Mean Corpuscular Hemoglobin 29.5, Mean Corpuscular Hemoglobin Concent 33.0, Red Cell Distribution Width 12.9, Platelet Count 258, Mean Platelet Volume 5.5L, Neutrophils (%) (Auto) 71.8, Lymphocytes ( %) (Auto) 19.1L, Monocytes (%) (Auto) 7.3, Eosinophils (%) (Auto) 1.0, Basophils (%) (Auto) 0.8, Sodium Level 144, Potassium Level 3.3L, Chloride Level 106, Carbon Dioxide Level 27, Anion Gap 11, Blood Urea Nitrogen 8, Creatinine 0.7, Estimat Glomerular Filtration Rate > 60, Glucose Level 43L, Calcium Level 8.7, Phosphorus Level 2.7, Magnesium Level 1.3L Height (Feet): 5 Height (Inches): 10.00 Weight (Pounds): 127 General Appearance: lethargic EENT: normal ENT inspection Neck: normal alignment Cardiovascular: normal peripheral pulses, normal rate, regular rhythm Respiratory/Chest: chest wall non-tender, lungs clear, normal breath sounds Abdomen: normal bowel sounds, non tender, soft Extremities: normal inspection Edema: no edema noted Arm (L), no edema noted Arm (R), no edema noted Leg (L), no edema noted Leg (R), no edema noted Pedal (L), no edema noted Pedal (R), no edema noted Generalized Neurologic: motor weakness Skin: normal pigmentation, warm/dry Nura Carter DO Sep 27, 2018 14:36
--- NOTE | 2018-09-27 19:30 | Progress Note ---
DATE: 09/27/2018 SUBJECTIVE: He is a 67-year-old male patient. He had generalized weakness, dehydration, and failure to thrive. He also has a lot of psychomotor agitation, irritability, and mood lability. as well. That is why, his attending has requested daily psychiatric consultation. MENTAL STATUS EXAMINATION: This is a 67-year-old male. Appearance is disheveled. Attitude, irritable and agitated. Affect, guarded and restricted. Intellect poor. Mood depressed and anxious. Motor activity, psychomotor agitation. Attention span is poor. Orientation x2. Speech is low volume. Thought process, disorganized. Thought process is poor. DIAGNOSIS: Schizoaffective, bipolar type. PLAN: Treat him with Zyprexa 5 mg q.12 h., Depakote 500 mg twice a day, BuSpar 5 mg twice a day, and Ativan 1 mg every 6 hours p.r.n. anxiety and agitation. Provide him with 20 minutes of cognitive behavioral therapy to help him identify his automatic negative thoughts help him convert those negative thoughts to more positive thoughts to reduce depression, anxiety, suicidality. . Chart reviewed. Discussed with staff. Seen and assessed in his room. A 20 minutes of cognitive behavioral therapy provided. Berto Umana M.D. DR: MILTON JOB#: [id number] CC:
--- NOTE | 2018-09-27 19:37 | NUR ---
HAND-OFF: Report given to MARGE Palma.
--- NOTE | 2018-09-27 19:46 | NUR ---
NURSE NOTES: Received patient awake in bed, able to verbalize needs, no c/o pain at this time, no s/s of acute distress. Condom catheter noted. IV site dressing reinforced, IV patent and asymptomatic. Bed on lowest position, 2 side rails up, call light within reach.
[2018-09-28] VITALS: BP 159/85
[2018-09-28 04:00] VITALS: BP 152/83
[2018-09-28] MEDS: NovoLOG Insulin Flexpen SUBQ SCH ×3 (05:58→16:48)
--- NOTE | 2018-09-28 06:30 | General Progress Note ---
Assessment/Plan Problem List: (1) COPD (chronic obstructive pulmonary disease) ICD Codes: J44.9 - Chronic obstructive pulmonary disease, unspecified SNOMED: 46091297 (2) Acute encephalopathy ICD Codes: G93.40 - Encephalopathy, unspecified SNOMED: 44468722, 298855883 (3) DM (diabetes mellitus) ICD Codes: E11.9 - Diabetes mellitus SNOMED: 86500679 Qualifiers: Qualified Codes: E13.8 - Other specified diabetes mellitus with unspecified complications (4) HTN (hypertension) ICD Codes: I10 - Hypertension SNOMED: 04939257 Assessment/Plan DC Levemir continue NISS ac / hs Subjective Allergies: Coded Allergies: No Known Allergies (Unverified , 01/05/13) All Systems: reviewed and negative except above Subjective events noted hypoglycemia this morning Item Value Date Time Bedside Blood Glucose 65 mg/dl L 09/28/18 0558 Bedside Blood Glucose 216 mg/dl H 09/27/18 2213 Bedside Blood Glucose 203 mg/dl H 09/27/18 1737 Bedside Blood Glucose 115 mg/dl 09/27/18 1144 Bedside Blood Glucose 132 mg/dl H 09/27/18 0830 Bedside Blood Glucose 59 mg/dl L 09/27/18 0629 Objective Last 24 Hour Vital Signs Date Time Temp Pulse Resp B/P (MAP) Pulse Ox O2 Delivery O2 Flow Rate FiO2 09/28/18 04:00 97.8 64 18 152/83 (106) 94 09/28/18 00:00 97.7 72 18 159/85 (109) 93 09/27/18 21:50 Nasal Cannula 3.0 09/27/18 20:00 97.7 72 18 140/74 (96) 94 09/27/18 16:00 97.8 71 20 118/82 (94) 95 09/27/18 12:26 97.5 64 20 158/81 (106) 94 09/27/18 11:16 97.0 65 20 155/82 (106) 96 09/27/18 09:49 162/71 09/27/18 09:00 Nasal Cannula 3.0 09/27/18 08:00 97.2 62 20 162/71 (101) 95 Intake and Output 09/27/18 09/28/18 19:00 07:00 Intake Total 2260 ml Output Total 400 ml Balance 1860 ml Intake Oral 960 ml IV Total 1300 ml Output Urine Total 400 ml # Voids 6 Height (Feet): 5 Height (Inches): 10.00 Weight (Pounds): 127 General Appearance: no apparent distress Neck: normal alignment Cardiovascular: regular rhythm Respiratory/Chest: normal breath sounds Abdomen: normal bowel sounds Objective Current Medications Medications (Trade) Dose Ordered Sig/Kun Route PRN Reason Start Time Stop Time Status Last Admin Dose Admin Acetaminophen (Tylenol) 650 mg Q4H PRN ORAL T>100.5 09/24/18 15:30 10/24/18 15:29 Al Hydroxide/Mg Hydroxide (Mylanta II) 30 ml Q6H PRN ORAL dyspepsia 09/24/18 15:30 10/24/18 15:29 Albuterol/ Ipratropium (Albuterol/ Ipratropium) 3 ml Q4H PRN HHN Shortness of Breath 09/24/18 15:30 09/29/18 15:29 Buspirone HCl (Buspar) 5 mg BID ORAL 09/24/18 18:00 10/24/18 17:59 09/27/18 17:29 Clonidine HCl (Catapres Tab) 0.1 mg Q4H PRN ORAL SBP > 160mmHg 09/24/18 15:30 10/24/18 15:29 09/27/18 09:49 Dextrose (Dextrose 50%) 25 ml Q30M PRN IV Hypoglycemia 09/25/18 06:30 10/25/18 06:29 Dextrose (Dextrose 50%) 50 ml Q30M PRN IV Hypoglycemia 09/25/18 06:30 10/25/18 06:29 Erythromycin (Erythrocin) 500 mg Q6HR ORAL 09/25/18 13:00 10/02/18 12:59 09/27/18 17:28 Folic Acid (Folate) 1 mg DAILY ORAL 09/25/18 09:00 10/25/18 08:59 Heparin Sodium (Porcine) (Heparin 5000 units/ml) 5,000 units EVERY 12 HOURS SUBQ 09/24/18 21:00 10/24/18 20:59 09/27/18 20:35 Insulin Aspart (NovoLOG) BEFORE MEALS AND HS SUBQ 09/24/18 17:30 10/24/18 17:29 09/27/18 20:36 Insulin Detemir (Levemir) 6 units DAILY SUBQ 09/27/18 09:00 10/25/18 08:59 09/27/18 08:30 Ketorolac Tromethamine (Toradol 30mg) 30 mg Q6H PRN IV Moderate Pain (Pain Scale 4-6) 09/24/18 15:30 09/29/18 15:29 Levetiracetam 100 ml @ 400 mls/hr Q12HR IVPB 09/25/18 10:30 10/25/18 10:29 09/27/18 20:34 Lorazepam (Ativan) 1 mg Q6H PRN ORAL For Anxiety 09/25/18 09:15 10/02/18 09:14 Morphine Sulfate (Morphine Sulfate) 2 mg Q4H PRN IVP Severe Pain (Pain Scale 7-10) 09/24/18 15:30 10/01/18 15:29 Nitroglycerin (Ntg) 0.4 mg Q5MIN X 3 DOSES PRN SL Prn Chest Pain 09/24/18 15:45 10/24/18 15:44 Olanzapine (ZyPREXA) 5 mg Q12HR ORAL 09/24/18 21:00 10/24/18 20:59 09/27/18 20:35 Ondansetron HCl (Zofran) 4 mg Q6H PRN IVP Nausea & Vomiting 09/24/18 15:30 10/24/18 15:29 Polyethylene Glycol (Miralax) 17 gm HSPRN PRN ORAL Constipation 09/24/18 21:00 10/24/18 20:59 Sodium Chloride 1,000 ml @ 100 mls/hr Q10H IVLG 09/24/18 17:00 10/24/18 16:59 09/27/18 15:00 Temazepam (Restoril) 15 mg HSPRN PRN ORAL Insomnia 09/24/18 21:00 10/01/18 20:59 Valproic Acid (Depakene) 500 mg BID ORAL 09/24/18 18:00 10/24/18 17:59 09/27/18 17:29 Chetan Barrientos MD Sep 28, 2018 06:30
--- NOTE | 2018-09-28 07:45 | NUR ---
HAND-OFF: Report given to MARGE Seay.
[2018-09-28 07:47] LABS: EOSINOPHILS % (AUTO) 1.7 % (0.0-3.0); HEMATOCRIT 35.1 % (42.0-52.0); HEMOGLOBIN 11.6 G/DL (14.2-18.0); LYMPHOCYTES % (AUTO) 18.9 % (20.0-45.0); MEAN CORPUSCULAR VOLUME 90 FL (80-99); MONOCYTES % (AUTO) 8.4 % (1.0-10.0); NEUTROPHILS % (AUTO) 70.1 % (45.0-75.0); PLATELET COUNT 288 K/UL (150-450); RED CELL DISTRIBUTION WIDTH 13.4 % (11.6-14.8); WHITE BLOOD COUNT 9.2 K/UL (4.8-10.8)
[2018-09-28 08:00] VITALS: BP 129/77
[2018-09-28 08:16] LABS: ANION GAP 6 mmol/L (5-15); BLOOD UREA NITROGEN 3 mg/dL (7-18); CALCIUM 8.4 MG/DL (8.5-10.1); CARBON DIOXIDE 27 MMOL/L (21-32); CHLORIDE 108 MMOL/L (98-107); CREATININE 0.7 MG/DL (0.55-1.30); POTASSIUM 3.8 MMOL/L (3.5-5.1); SODIUM 141 MMOL/L (136-145)
[2018-09-28] MEDS: levETIRAcetam 500mg/NS100ml 100 ML IVPB SCH (08:32)
[2018-09-28] MEDS: BusPIRone 5mg Tab ORAL SCH ×2 (08:32→17:09)
[2018-09-28] MEDS: Heparin 5000 units/ml inj SUBQ SCH (08:35)
--- NOTE | 2018-09-28 10:24 | NUR ---
NURSE NOTES: pt in bed with no sob nor in any form of distress noted. all due meds given as ordered. denies any pain at this time. will continue to monitor
--- NOTE | 2018-09-28 11:32 | NUR ---
RD ASSESSMENT & RECOMMENDATIONS SEE CARE ACTIVITY FOR COMPLETE ASSESSMENT DAILY ESTIMATED NEEDS: Needs based on underweight 30-35 kcals/kg 9505-6812 total kcals 1-1.5 g protein/kg 54-81 g total protein 25-30 mL/kg 1030-8254 total fluid mLs NUTRITION DIAGNOSIS: 1) Suspected swallowing difficulty R/T dysphagia w/ h/o CVA as evidenced by pt on liquify pureed, NTL 2) Altered nutrition related lab values R/T diabetes as evidenced by elev BG of 359 upon adm, now w/ episodes of hypoglycemia (65 [phone]), A1C of 8.8. 3) Increased kcal/prot needs R/T wt loss, underweight status as evidenced by pt is 80% IBW, possible recent wt loss of 8.5lbs/6.7% in <4 months. MICHELET COUNT X 48 HRS COMPLETED Only 3 out of 6 data (meal tickets w/ % intake recorded of each meal) available. 09/25 lunch : ~ 480kcal, 25g prot 100% chicken rice soup 100% baked sole pureed 50% broccoli pureed 100% juice 09/25 dinner refused 09/26 breakfast refused per EMR (data missing) 09/26 lunch refused per EMR (data missing) 09/26 dinner (diet texture now changed to liquify pureed) 50% per EMR 09/27 breakfast : ~105kcal, 7g prot 50% juice 100% eggs liquify pureed 09/27 lunch 75% per EMR (data missing) 09/28 dinner 75% per EMR (data missing) RESULT: Incomplete data. From data available, pt w/ variable PO intake w/ initially refusing meals. However, it appears that pt w/ improved PO acceptance w/ new texture of liquify pureed, NTL, 75% of last recorded meals in EMR. Rec to add Glucerna 1 tetra sudarshan TID w/ meals (220kcal/10g prot per sudarshan) and snacks TID in b/w meals to help prevent hypoglycemia. Cont to monitor PO intake closely. CURRENT DIET:CCHO MED, LIQUIFY PUREED, NTL PO DIET RECOMMENDATIONS: CCHO MED (TEXTURE PER SHIPFITTER) + GLUCERNA TID ADDITIONAL RECOMMENDATIONS: - CALIBRATED bedscale wt for accurate CBW, weekly wt monitoring -> possible recent wt loss, underweight status - Add Glucerna 1 tetra sudarshan TID w/ meals (220kcal/10g prot per sudarshan) - Snacks TID in b/w meals to prevent hypoglycemia - Monitor PO tolerance- admitted w/ c/o vomiting - Michelet count completed on 09/28/18 - Monitor PO intake closely -> improving at this time
[2018-09-28 12:00] VITALS: BP 155/99
--- NOTE | 2018-09-28 12:05 | General Progress Note ---
Assessment/Plan Problem List: (1) Failure to thrive SNOMED: 36752613 Qualifiers: Qualified Codes: R62.7 - Adult failure to thrive (2) COPD with acute exacerbation ICD Codes: J44.1 - Chronic obstructive pulmonary disease with (acute) exacerbation SNOMED: 735419400 (3) DM (diabetes mellitus) ICD Codes: E11.9 - Diabetes mellitus SNOMED: 09074397 Qualifiers: Qualified Codes: E13.8 - Other specified diabetes mellitus with unspecified complications (4) HTN (hypertension) ICD Codes: I10 - Hypertension SNOMED: 04623465 (5) Anemia ICD Codes: D64.9 - Anemia, unspecified SNOMED: 679647252 Assessment/Plan ST evaluation reviewed, passed on CCHO(MEDIUM) MOIST PUREE WITH NECTAR THICK LIQUIDS. ate 30% Will consider PEG if nutritional needs are not met Erythromycin ATC given possible gastroparesis secondary to DM PPI OB stool rule out GI bleed Monitor H&H, PRN transfusion Zofran as needed Electrolyte correction Follow lab Subjective ROS Limited/Unobtainable: Yes Allergies: Coded Allergies: No Known Allergies (Unverified , 01/05/13) Objective Last 24 Hour Vital Signs Date Time Temp Pulse Resp B/P (MAP) Pulse Ox O2 Delivery O2 Flow Rate FiO2 09/28/18 09:05 Nasal Cannula 3.0 09/28/18 08:00 98.6 70 20 129/77 (94) 95 09/28/18 04:00 97.8 64 18 152/83 (106) 94 09/28/18 00:00 97.7 72 18 159/85 (109) 93 09/27/18 21:50 Nasal Cannula 3.0 09/27/18 20:00 97.7 72 18 140/74 (96) 94 09/27/18 16:00 97.8 71 20 118/82 (94) 95 09/27/18 12:26 97.5 64 20 158/81 (106) 94 Intake and Output 09/27/18 09/28/18 19:00 07:00 Intake Total 2260 ml 100 ml Output Total 400 ml 1100 ml Balance 1860 ml -1000 ml Intake Oral 960 ml IV Total 1300 ml 100 ml Output Urine Total 400 ml 1100 ml # Voids 6 Laboratory Tests 09/28/18 07:21: White Blood Count 9.2, Red Blood Count 3.90L, Hemoglobin 11.6L, Hematocrit 35.1L , Mean Corpuscular Volume 90, Mean Corpuscular Hemoglobin 29.7, Mean Corpuscular Hemoglobin Concent 33.1, Red Cell Distribution Width 13.4, Platelet Count 288, Mean Platelet Volume 6.2L, Neutrophils (%) (Auto) 70.1, Lymphocytes ( %) (Auto) 18.9L, Monocytes (%) (Auto) 8.4, Eosinophils (%) (Auto) 1.7, Basophils (%) (Auto) 1.0, Sodium Level 141, Potassium Level 3.8, Chloride Level 108H, Carbon Dioxide Level 27, Anion Gap 6, Blood Urea Nitrogen 3L, Creatinine 0.7, Estimat Glomerular Filtration Rate > 60, Glucose Level 115H, Calcium Level 8.4L, Magnesium Level 1.6L Height (Feet): 5 Height (Inches): 10.00 Weight (Pounds): 127 General Appearance: no apparent distress EENT: normal ENT inspection Neck: supple Cardiovascular: normal rate Respiratory/Chest: decreased breath sounds Abdomen: normal bowel sounds, non tender, soft Extremities: non-tender James Stephens MD Sep 28, 2018 12:05
--- NOTE | 2018-09-28 12:13 | NUR ---
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 DEHYDRATION . FAILURE TO THRIVE VS:BP 159/85, P 68, T 98.6, RR 20, SpO2 93 on 3.0L NC RBC 3.90, BUN 3 IS:NS x1L IV VALPROIC ACID 500mg BUSPIRONE 5mg ZYPREXA 5mg LEVETIRACETAM 100ml IVPB MED/SURG STATUS
--- NOTE | 2018-09-28 13:27 | General Progress Note ---
Assessment/Plan Problem List: (1) UTI (urinary tract infection) ICD Codes: N39.0 - Urinary tract infection, site not specified SNOMED: 37373162 (2) CVA (cerebral vascular accident) ICD Codes: I63.9 - Cerebral infarction, unspecified SNOMED: 240366809 (3) COPD (chronic obstructive pulmonary disease) ICD Codes: J44.9 - Chronic obstructive pulmonary disease, unspecified SNOMED: 19460809 (4) Anemia ICD Codes: D64.9 - Anemia, unspecified SNOMED: 950335207 (5) Seizure disorder ICD Codes: G40.909 - Seizure disorder SNOMED: 050623449 (6) HTN (hypertension) ICD Codes: I10 - Hypertension SNOMED: 03444134 (7) Sepsis ICD Codes: A41.9 - Sepsis, unspecified organism SNOMED: 38210017 (8) DM (diabetes mellitus) ICD Codes: E11.9 - Diabetes mellitus SNOMED: 36815466 Qualifiers: Qualified Codes: E13.8 - Other specified diabetes mellitus with unspecified complications (9) Failure to thrive SNOMED: 70790824 Qualifiers: Qualified Codes: R62.7 - Adult failure to thrive Status: stable, progressing Assessment/Plan pt diet abx o2 pulm tx dc if clear Subjective Constitutional: Reports: weakness Allergies: Coded Allergies: No Known Allergies (Unverified , 01/05/13) All Systems: reviewed and negative except above Subjective calm in bed sleepy Objective Last 24 Hour Vital Signs Date Time Temp Pulse Resp B/P (MAP) Pulse Ox O2 Delivery O2 Flow Rate FiO2 09/28/18 09:05 Nasal Cannula 3.0 09/28/18 08:00 98.6 70 20 129/77 (94) 95 09/28/18 04:00 97.8 64 18 152/83 (106) 94 09/28/18 00:00 97.7 72 18 159/85 (109) 93 09/27/18 21:50 Nasal Cannula 3.0 09/27/18 20:00 97.7 72 18 140/74 (96) 94 09/27/18 16:00 97.8 71 20 118/82 (94) 95 Intake and Output 09/27/18 09/28/18 18:59 06:59 Intake Total 2260 ml 100 ml Output Total 400 ml 1100 ml Balance 1860 ml -1000 ml Intake Oral 960 ml IV Total 1300 ml 100 ml Output Urine Total 400 ml 1100 ml # Voids 6 Laboratory Tests 09/28/18 07:21: White Blood Count 9.2, Red Blood Count 3.90L, Hemoglobin 11.6L, Hematocrit 35.1L , Mean Corpuscular Volume 90, Mean Corpuscular Hemoglobin 29.7, Mean Corpuscular Hemoglobin Concent 33.1, Red Cell Distribution Width 13.4, Platelet Count 288, Mean Platelet Volume 6.2L, Neutrophils (%) (Auto) 70.1, Lymphocytes ( %) (Auto) 18.9L, Monocytes (%) (Auto) 8.4, Eosinophils (%) (Auto) 1.7, Basophils (%) (Auto) 1.0, Sodium Level 141, Potassium Level 3.8, Chloride Level 108H, Carbon Dioxide Level 27, Anion Gap 6, Blood Urea Nitrogen 3L, Creatinine 0.7, Estimat Glomerular Filtration Rate > 60, Glucose Level 115H, Calcium Level 8.4L, Magnesium Level 1.6L Height (Feet): 5 Height (Inches): 10.00 Weight (Pounds): 127 General Appearance: lethargic EENT: normal ENT inspection Neck: normal alignment Cardiovascular: normal peripheral pulses, normal rate, regular rhythm Respiratory/Chest: chest wall non-tender, lungs clear, normal breath sounds Abdomen: normal bowel sounds, non tender, soft Extremities: normal inspection Edema: no edema noted Arm (L), no edema noted Arm (R), no edema noted Leg (L), no edema noted Leg (R), no edema noted Pedal (L), no edema noted Pedal (R), no edema noted Generalized Neurologic: motor weakness Skin: normal pigmentation, warm/dry Nura Carter DO Sep 28, 2018 13:27
--- NOTE | 2018-09-28 14:10 | Pulmonology Progress Note ---
Assessment/Plan Problems: (1) Acute encephalopathy (2) Failure to thrive (3) COPD (chronic obstructive pulmonary disease) (4) Sepsis (5) HTN (hypertension) (6) DM (diabetes mellitus) (7) Gastroparesis (8) Seizure disorder Assessment/Plan improving swallow study respiratory treatment calorie count sliding scale seizure precaution. dc planning all reviewed Subjective ROS Limited/Unobtainable: No Constitutional: Reports: no symptoms HEENT: Repors: no symptoms Allergies: Coded Allergies: No Known Allergies (Unverified , 01/05/13) Objective Last 24 Hour Vital Signs Date Time Temp Pulse Resp B/P (MAP) Pulse Ox O2 Delivery O2 Flow Rate FiO2 09/28/18 09:05 Nasal Cannula 3.0 09/28/18 08:00 98.6 70 20 129/77 (94) 95 09/28/18 04:00 97.8 64 18 152/83 (106) 94 09/28/18 00:00 97.7 72 18 159/85 (109) 93 09/27/18 21:50 Nasal Cannula 3.0 09/27/18 20:00 97.7 72 18 140/74 (96) 94 09/27/18 16:00 97.8 71 20 118/82 (94) 95 Intake and Output 09/27/18 09/28/18 19:00 07:00 Intake Total 2260 ml 100 ml Output Total 400 ml 1100 ml Balance 1860 ml -1000 ml Intake Oral 960 ml IV Total 1300 ml 100 ml Output Urine Total 400 ml 1100 ml # Voids 6 Objective General Appearance: cachetic Lines, tubes and drains: peripheral HEENT: normocephalic, atraumatic Neck: non-tender, normal alignment Respiratory/Chest: chest wall non-tender, lungs clear Cardiovascular/Chest: normal rate Abdomen: normal bowel sounds, soft Genitourinary/Rectal: normal genital exam Extremities: normal range of motion Laboratory Tests 09/28/18 07:21: White Blood Count 9.2, Red Blood Count 3.90L, Hemoglobin 11.6L, Hematocrit 35.1L , Mean Corpuscular Volume 90, Mean Corpuscular Hemoglobin 29.7, Mean Corpuscular Hemoglobin Concent 33.1, Red Cell Distribution Width 13.4, Platelet Count 288, Mean Platelet Volume 6.2L, Neutrophils (%) (Auto) 70.1, Lymphocytes ( %) (Auto) 18.9L, Monocytes (%) (Auto) 8.4, Eosinophils (%) (Auto) 1.7, Basophils (%) (Auto) 1.0, Sodium Level 141, Potassium Level 3.8, Chloride Level 108H, Carbon Dioxide Level 27, Anion Gap 6, Blood Urea Nitrogen 3L, Creatinine 0.7, Estimat Glomerular Filtration Rate > 60, Glucose Level 115H, Calcium Level 8.4L, Magnesium Level 1.6L Current Medications Medications (Trade) Dose Ordered Sig/Kun Route PRN Reason Start Time Stop Time Status Last Admin Dose Admin Acetaminophen (Tylenol) 650 mg Q4H PRN ORAL T>100.5 09/24/18 15:30 10/24/18 15:29 Al Hydroxide/Mg Hydroxide (Mylanta II) 30 ml Q6H PRN ORAL dyspepsia 09/24/18 15:30 10/24/18 15:29 Albuterol/ Ipratropium (Albuterol/ Ipratropium) 3 ml Q4H PRN HHN Shortness of Breath 09/24/18 15:30 09/29/18 15:29 Buspirone HCl (Buspar) 5 mg BID ORAL 09/24/18 18:00 10/24/18 17:59 09/28/18 08:32 Clonidine HCl (Catapres Tab) 0.1 mg Q4H PRN ORAL SBP > 160mmHg 09/24/18 15:30 10/24/18 15:29 09/27/18 09:49 Dextrose (Dextrose 50%) 25 ml Q30M PRN IV Hypoglycemia 09/25/18 06:30 10/25/18 06:29 Dextrose (Dextrose 50%) 50 ml Q30M PRN IV Hypoglycemia 09/25/18 06:30 10/25/18 06:29 Erythromycin (Erythrocin) 500 mg Q6HR ORAL 09/25/18 13:00 10/02/18 12:59 09/27/18 17:28 Folic Acid (Folate) 1 mg DAILY ORAL 09/25/18 09:00 10/25/18 08:59 09/28/18 08:32 Heparin Sodium (Porcine) (Heparin 5000 units/ml) 5,000 units EVERY 12 HOURS SUBQ 09/24/18 21:00 10/24/18 20:59 09/28/18 08:35 Insulin Aspart (NovoLOG) BEFORE MEALS AND HS SUBQ 09/24/18 17:30 10/24/18 17:29 09/27/18 20:36 Ketorolac Tromethamine (Toradol 30mg) 30 mg Q6H PRN IV Moderate Pain (Pain Scale 4-6) 09/24/18 15:30 09/29/18 15:29 Levetiracetam 100 ml @ 400 mls/hr Q12HR IVPB 09/25/18 10:30 10/25/18 10:29 09/28/18 08:32 Lorazepam (Ativan) 1 mg Q6H PRN ORAL For Anxiety 09/25/18 09:15 10/02/18 09:14 Morphine Sulfate (Morphine Sulfate) 2 mg Q4H PRN IVP Severe Pain (Pain Scale 7-10) 09/24/18 15:30 10/01/18 15:29 Nitroglycerin (Ntg) 0.4 mg Q5MIN X 3 DOSES PRN SL Prn Chest Pain 09/24/18 15:45 10/24/18 15:44 Olanzapine (ZyPREXA) 5 mg Q12HR ORAL 09/24/18 21:00 10/24/18 20:59 09/28/18 08:32 Ondansetron HCl (Zofran) 4 mg Q6H PRN IVP Nausea & Vomiting 09/24/18 15:30 10/24/18 15:29 Polyethylene Glycol (Miralax) 17 gm HSPRN PRN ORAL Constipation 09/24/18 21:00 10/24/18 20:59 Sodium Chloride 1,000 ml @ 100 mls/hr Q10H IVLG 09/24/18 17:00 10/24/18 16:59 09/28/18 12:13 Temazepam (Restoril) 15 mg HSPRN PRN ORAL Insomnia 09/24/18 21:00 10/01/18 20:59 Valproic Acid (Depakene) 500 mg BID ORAL 09/24/18 18:00 10/24/18 17:59 09/28/18 08:32 Mey Latham MD Sep 28, 2018 14:10
[2018-09-28] MEDS ORDERED: ACETAMINOPHEN325 M1 ORAL (14:42)
[2018-09-28] MEDS ORDERED: CLONIDINE0.1 MG PO (14:43)
[2018-09-28] MEDS ORDERED: ERYTHROMYCIN500 M1 ORAL (14:45)
--- NOTE | 2018-09-28 14:49 | NUR ---
*-* DISCHARGE PLANNING *-* PATIENT HAS BEEN REFERRED TO: [facility] P:[phone] F:[phone]
--- NOTE | 2018-09-28 15:03 | NUR ---
*-* DISCHARGE PLANNED *-* PATIENT DISCHARGED BACK [place]: [facility] RO[facility]-[address] SKILLED T:[phone] FOR NURSE TO NURSE REPORT [facility] HAS BEEN ARRANGED FOR PICK YP AT [address] [id number] *-* TRIED TO NOTIFY KATIE "AMBAR MARAVILLA" WITH [employer] LEFT VM ADVISING OF PTS [place] [facility] *-*
--- NOTE | 2018-09-28 15:15 | Progress Note ---
DATE: 09/28/2018 SUBJECTIVE: This is a 67-year-old male with weakness and dehydration, but he still has mood lability, agitation, irritability worsened by stress of his medical illness. Intermittently refusing treatment. That is why, his attending has requested daily psychiatric consultation. DIAGNOSIS: Schizoaffective, bipolar type. PLAN: Treat him with Zyprexa 5 q.12 h., Depakote 500 mg twice a day, BuSpar 5 mg 3 times a day, Ativan 1 every 6 hours p.r.n. anxiety and agitation, Haldol Decanoate 100 mg IM every month. Provide him with 20 minutes of cognitive behavioral therapy to help him identify his automatic negative thoughts help him convert those negative thoughts to more positive thoughts to reduce depression, anxiety, and mood lability and help him to have more adaptive behavior pattern. 20 minutes of cognitive behavioral therapy. Chart reviewed. Discussed with staff. Seen and assessed in his room. Berto Umana M.D. DR: CHEIKH JOB#: [id number] CC:
--- NOTE | 2018-09-28 15:35 | Infectious Diseases Prog Note ---
Assessment/Plan Assessment/Plan Abx: None Assessment: Vomiting- probable related to gastropresis FTT -CXR: No acute process Afebrile Mild leukocytosis, suspect reactive- now resolved; no evidence of active infectious process -u/a neg -Bcx NTD DM2 HTN COPD CVA/TIA w/ L side weakness seizure disorder SNF resident Plan: -Continue to monitor off abx unless febrile, increasing WBC and/or HD unstable -ok to discharge from ID stand point -f/u cx -Monitor CBC/CMP, temperatures -aspiration precautions -GI f/u Thank you for this consultation. Will continue to follow along with you. Discussed with RN. Subjective Allergies: Coded Allergies: No Known Allergies (Unverified , 01/05/13) Subjective afebrile no leukocytosis off abx Bcx NTD Objective Vital Signs Last 24 Hour Vital Signs Date Time Temp Pulse Resp B/P (MAP) Pulse Ox O2 Delivery O2 Flow Rate FiO2 09/28/18 12:00 98.6 66 20 155/99 (117) 95 09/28/18 09:05 Nasal Cannula 3.0 09/28/18 08:00 98.6 70 20 129/77 (94) 95 09/28/18 04:00 97.8 64 18 152/83 (106) 94 09/28/18 00:00 97.7 72 18 159/85 (109) 93 09/27/18 21:50 Nasal Cannula 3.0 09/27/18 20:00 97.7 72 18 140/74 (96) 94 09/27/18 16:00 97.8 71 20 118/82 (94) 95 Height (Feet): 5 Height (Inches): 10.00 Weight (Pounds): 127 Objective General Appearance: no apparent distress, alert HEENT: bilateral eye normal inspection, bilateral eye PERRL normal pharynx Neck: full range of motion, supple/symm/no masses Respiratory: chest non-tender, lungs clear, normal breath sounds, speaking full sentences Cardiovascular regular rate, rhythm, no edema Gastrointestinal: normal bowel sounds, non tender, soft, non-distended, no guarding, no rebound Genitourinary: normal inspection, no CVA tenderness Musculoskeletal: back normal, gait/station normal, normal range of motion, non- tender Skin: normal color, no rash, warm/dry, well hydrated Laboratory Tests Test 09/28/18 07:21 White Blood Count 9.2 K/UL (4.8-10.8) Red Blood Count 3.90 M/UL (4.70-6.10) L Hemoglobin 11.6 G/DL (14.2-18.0) L Hematocrit 35.1 % (42.0-52.0) L Mean Corpuscular Volume 90 FL (80-99) Mean Corpuscular Hemoglobin 29.7 PG (27.0-31.0) Mean Corpuscular Hemoglobin Concent 33.1 G/DL (32.0-36.0) Red Cell Distribution Width 13.4 % (11.6-14.8) Platelet Count 288 K/UL (150-450) Mean Platelet Volume 6.2 FL (6.5-10.1) L Neutrophils (%) (Auto) 70.1 % (45.0-75.0) Lymphocytes (%) (Auto) 18.9 % (20.0-45.0) L Monocytes (%) (Auto) 8.4 % (1.0-10.0) Eosinophils (%) (Auto) 1.7 % (0.0-3.0) Basophils (%) (Auto) 1.0 % (0.0-2.0) Sodium Level 141 MMOL/L (136-145) Potassium Level 3.8 MMOL/L (3.5-5.1) Chloride Level 108 MMOL/L (98-107) H Carbon Dioxide Level 27 MMOL/L (21-32) Anion Gap 6 mmol/L (5-15) Blood Urea Nitrogen 3 mg/dL (7-18) L Creatinine 0.7 MG/DL (0.55-1.30) Estimat Glomerular Filtration Rate > 60 mL/min (>60) Glucose Level 115 MG/DL (74-106) H Calcium Level 8.4 MG/DL (8.5-10.1) L Magnesium Level 1.6 MG/DL (1.8-2.4) L Current Medications Medications (Trade) Dose Ordered Sig/Kun Route PRN Reason Start Time Stop Time Status Last Admin Dose Admin Acetaminophen (Tylenol) 650 mg Q4H PRN ORAL T>100.5 09/24/18 15:30 10/24/18 15:29 Al Hydroxide/Mg Hydroxide (Mylanta II) 30 ml Q6H PRN ORAL dyspepsia 09/24/18 15:30 10/24/18 15:29 Albuterol/ Ipratropium (Albuterol/ Ipratropium) 3 ml Q4H PRN HHN Shortness of Breath 09/24/18 15:30 09/29/18 15:29 Buspirone HCl (Buspar) 5 mg BID ORAL 09/24/18 18:00 10/24/18 17:59 09/28/18 08:32 Clonidine HCl (Catapres Tab) 0.1 mg Q4H PRN ORAL SBP > 160mmHg 09/24/18 15:30 10/24/18 15:29 09/27/18 09:49 Dextrose (Dextrose 50%) 25 ml Q30M PRN IV Hypoglycemia 09/25/18 06:30 10/25/18 06:29 Dextrose (Dextrose 50%) 50 ml Q30M PRN IV Hypoglycemia 09/25/18 06:30 10/25/18 06:29 Erythromycin (Erythrocin) 500 mg Q6HR ORAL 09/25/18 13:00 10/02/18 12:59 09/28/18 14:44 Folic Acid (Folate) 1 mg DAILY ORAL 09/25/18 09:00 10/25/18 08:59 09/28/18 08:32 Heparin Sodium (Porcine) (Heparin 5000 units/ml) 5,000 units EVERY 12 HOURS SUBQ 09/24/18 21:00 10/24/18 20:59 09/28/18 08:35 Insulin Aspart (NovoLOG) BEFORE MEALS AND HS SUBQ 09/24/18 17:30 10/24/18 17:29 09/27/18 20:36 Ketorolac Tromethamine (Toradol 30mg) 30 mg Q6H PRN IV Moderate Pain (Pain Scale 4-6) 09/24/18 15:30 09/29/18 15:29 Levetiracetam 100 ml @ 400 mls/hr Q12HR IVPB 09/25/18 10:30 10/25/18 10:29 09/28/18 08:32 Lorazepam (Ativan) 1 mg Q6H PRN ORAL For Anxiety 09/25/18 09:15 10/02/18 09:14 Morphine Sulfate (Morphine Sulfate) 2 mg Q4H PRN IVP Severe Pain (Pain Scale 7-10) 09/24/18 15:30 10/01/18 15:29 Nitroglycerin (Ntg) 0.4 mg Q5MIN X 3 DOSES PRN SL Prn Chest Pain 09/24/18 15:45 10/24/18 15:44 Olanzapine (ZyPREXA) 5 mg Q12HR ORAL 09/24/18 21:00 10/24/18 20:59 09/28/18 08:32 Ondansetron HCl (Zofran) 4 mg Q6H PRN IVP Nausea & Vomiting 09/24/18 15:30 10/24/18 15:29 Polyethylene Glycol (Miralax) 17 gm HSPRN PRN ORAL Constipation 09/24/18 21:00 10/24/18 20:59 Sodium Chloride 1,000 ml @ 100 mls/hr Q10H IVLG 09/24/18 17:00 10/24/18 16:59 09/28/18 12:13 Temazepam (Restoril) 15 mg HSPRN PRN ORAL Insomnia 09/24/18 21:00 10/01/18 20:59 Valproic Acid (Depakene) 500 mg BID ORAL 09/24/18 18:00 10/24/18 17:59 09/28/18 08:32 Shell Niño M.D. Sep 28, 2018 15:35
[2018-09-28 16:00] VITALS: BP 110/65
--- NOTE | 2018-09-28 17:40 | NUR ---
NURSE NOTES: pt discharged to [facility] picked up by ambulance with stable condition. all discharge report given to the nurse michael and verbalized understanding. Iv heplock removed and covered with gauze and taped. pt has no belongings. Daughter (steffanie) made aware of discharge. VSS. denies any pain.
--- NOTE | 2018-10-01 11:43 | Discharge Summary ---
Discharge Summary Discharge Summary _ DATE OF ADMISSION: 09/24/2018 DATE OF DISCHARGE: [] 09/28/2018 DISCHARGED BY: Dr Carter REASON FOR ADMISSION: 67 years old male resident of detention facility, with past medical history of COPD, CVA with left-sided hemiparesis, seizure disorder, was sent from the detention facility for evaluation due to not eating for 3 days. Nursing staff also reported vomiting. Patient was getting progressively weak. Upon upon arrival patient denied abdominal pain. He denied fever chills. He denies chest pain or shortness of breath. Vital signs are stable. Laboratory workup revealed mild leukocytosis WBC 11.4, hemoglobin 11.8, hematocrit 26.5. BUN 28 creatinine 1.1 lactic acid 1.7. Stable electrolytes. Urinalysis revealed no pyuria occasional bacteria. +3 ketones +1 protein. Chest x-ray revealed no acute cardiopulmonary pathology. Patient was admitted for further management CONSULTANTS: house piping inspector neurologist pulmonary Dr. Latham ID specialist Dr. Singh GI specialist Dr. Stephens front window cashier rn camp/oncologist surgery psychiatrist Dr. Umana Slip Seat Coverer Dr. Barrientos [facility] COURSE: [] Patient admitted to medical surgical floor. Patient started on IV hydration and empiric antibiotics. Supplemental oxygen titrated as needed to keep pulse oximetry above 90%. Pulmonary toilet provided as needed. Pulse oximetry was stable on oxygen 3 L via nasal cannula. Infectious disease specialist followed. Blood cultures were negative. Rapid influenza screen test was negative. Mild leukocytosis likely reactive and resolved. No evidence of active infectious disease. Infectious disease doctor recommended to continue monitor patient off antibiotic unless febrile increasing WBC count or hemodynamically unstable. Vomiting was likely related to gastroparesis. Slip Seat Coverer followed. Hemoglobin A1c 8.8 patient initially started on long-acting Levemir and sliding scale of insulin before meals at bedtime. Patient was provided with diabetic diet. Antiemetic provided as needed. Slip Seat Coverer closely followed. Blood sugar was closely monitored. Patient initially was on long-standing Levemir and sliding scale of insulin as needed. Levemir was discontinued and infectious and stage director recommended continue only with a sliding scale of insulin as needed. A1c 8.8. However the hospital blood pressure blood sugar remained stable. Patient had episode of hypoglycemia on 320 1 in the morning blood sugar 43. Subsequently Levemir was discontinued as per stage director recommendation who recommended to continue sliding scale of insulin only. GI specialist closely follow. Bedside swallow evaluation noted patient passed swallow evaluation on diet and moist pure diet with nectar thick liquids and ate about 30% of meal. GI strict aspiration precautions were maintained with direct supervision with one-to-one supervision of during the feeding and texture provided as per speech therapist recommendation. GI specialist recommended consider palliative nutritional needs are not met. Patient started on erythromycin around [id number] given possible gastroparesis secondary to diabetes mellitus. Patient started on PPI. Antiemetic provided as needed. Renal parameters and electrolytes closely monitor. Electrolytes corrected as needed. Hemoglobin hematocrit were closely monitored with goal to keep hemoglobin above 7. Hemoglobin hematocrit remained in the baseline prior to discharge hemoglobin 11.6 hematocrit 25.1. Lipid panel was stable Renal parameters and electrolytes were closely monitored. Electrolytes corrected as needed namely potassium and magnesium. Nephrotoxins were avoided. Precautions were maintained. Patient was continued on Depakote and Keppra. No evidence of seizure activity while in the hospital. Bowel regimen instituted. Supportive care provided. Patient clinically stabilized and was ready for transfer back to detention facility for continuation of care. Psychiatrist closely follow. Psychiatric medication regimen was optimized as per psychiatrist. Cognitive behavioral therapy provided. FINAL DIAGNOSES: 1. [] Acute encephalopathy COPD Diabetes mellitus out of control History of paresis Seizure disorder Failure to thrive Anemia Failure to thrive due to poor oral intake and severe protein calorie malnutrition Dysphagia Gastroparesis likely secondary to diabetes mellitus schizoaffective bipolar type DISCHARGE MEDICATIONS:See Medication Reconciliation list. DISCHARGE INSTRUCTIONS: Patient was discharged to the detention facility. Follow up with medical doctor at the facility. I have been assigned to dictate discharge summary for this account. I was not involved in the patient's management. Sarah Collins NP Oct 01, 2018 11:43
== END 2018-09-28 17:36 | DRG 73 ==
LOC: EDBD 12:39 → EDUNIT# 12:39 → EMR 14:04 → 4E 14:10 → EDBEDREQ 16:18 → 4E 21:27
DX: E11.43 Type 2 diabetes mellitus with diabetic autonomic (poly)neuropathy (principal); E43 Unspecified severe protein-calorie malnutrition; I69.354 Hemiplegia and hemiparesis following cerebral infarction affecting left non-dominant side; N39.0 Urinary tract infection, site not specified; G93.40 Encephalopathy, unspecified; Z68.1 Body mass index [BMI] 19.9 or less, adult; K31.84 Gastroparesis; K52.9 Noninfective gastroenteritis and colitis, unspecified; E11.8 Type 2 diabetes mellitus with unspecified complications; I10 Essential (primary) hypertension; J44.9 Chronic obstructive pulmonary disease, unspecified; G40.909 Epilepsy, unspecified, not intractable, without status epilepticus; E11.65 Type 2 diabetes mellitus with hyperglycemia; R62.7 Adult failure to thrive; D64.9 Anemia, unspecified; R13.10 Dysphagia, unspecified; Z79.4 Long term (current) use of insulin; F25.0 Schizoaffective disorder, bipolar type
CPT/HCPCS: 36415; 71045; 80048; 80053; 80061; 80299; 81003; 82962; 83036; 83605; 83735; 83880; 84100; 84443; 85025; 86710; 87040; 87081; 94664; 96361; 96374; 97803; 99285; J1815; J2405; J8499; S5561

== ENCOUNTER 2020-09-14 16:01 | Inpatient (IN) | payer MEDICARE, MEDICAID ==
[~2020-09-14] VITALS: Ht 152.4 cm; Wt 72.6 kg
[~2020-09-14 16:01] MED LIST changes: +CLONIDINE0.1 MG PO; +ERYTHROMYCIN500 M1 ORAL
--- NOTE | 2020-09-14 16:26 | Emergency Room Report ---
History of Present Illness General Chief Complaint: General Complaint Present Illness HPI Disclaimer: Please note that this report is being documented using [employer]og[employer] technology. This can lead to erroneous entry secondary to incorrect interpretation by the dictating instrument. HPI: 69-year-old male history of diabetes, stroke with dysphagia presents from [facility], [facility] for gastrostomy tube placement. Apparently patient is high risk for aspiration due to his history of stroke and sent by his primary care doctor, Dr. Carter for gastrostomy tube placement. Patient alert and oriented x1. Denies any medical complaints at this time. Allergies: Coded Allergies: No Known Allergies (Unverified , 01/05/13) COVID-19 Screening Contact w/high risk pt: No Experienced COVID-19 symptoms?: No COVID-19 Testing performed REMELT WORKER: No Patient History Reviewed Nursing Documentation: PMH: Agreed; PSxH: Agreed Nursing Documentation-PMH Hx Cardiac Problems: Yes Hx Hypertension: Yes Hx COPD: Yes Hx Diabetes: Yes Hx Cancer: No Hx Gastrointestinal Problems: Yes Hx Cerebrovascular Accident: Yes - CVA WITH LEFT SIDE WEAKNESS Hx Seizures: Yes Hx Epilepsy: Yes Hx Speech Problem: Yes Hx Dysphasia: Yes Review of Systems All Other Systems: negative except mentioned in HPI Physical Exam Vital Signs Date Time Temp Pulse Resp B/P (MAP) Pulse Ox O2 Delivery O2 Flow Rate FiO2 09/14/20 16:03 97.9 78 18 130/80 (97) 98 Room Air Sp02 EP Interpretation: reviewed, normal General Appearance: well appearing, no apparent distress, Chronically Ill Head: normocephalic, atraumatic Eyes: bilateral eye PERRL, bilateral eye EOMI ENT: hearing grossly normal, moist mucus membranes Neck: full range of motion, supple Respiratory: lungs clear, normal breath sounds, no rhonchi, no respiratory distress, no retraction, no wheezing Cardiovascular #1: normal peripheral pulses, regular rate, rhythm, no murmur Gastrointestinal: non tender, soft, non-distended, no guarding Neurologic: alert, aphasia, other - Oriented x2 Skin: normal color, warm/dry Medical Decision Making Diagnostic Impression: Primary Impression: Failure to thrive Additional Impression: Arterial ischemic stroke, MCA (middle cerebral artery), right, chronic ER Course MDM: Differential included but not limited to dysphagia, aspiration risk, failure to thrive, to name a few Clinical course-patient had basic laboratory studies sent. Unfortunately due to his history of stroke he is a high risk for aspiration so does require gastrostomy tube. Sent by his primary care doctor. He does not have an existing gastrostomy tube. Will require admission for gastrostomy tube placement. Will be admitted to the medical floor under patient's primary care doctor. Accepted by Dr. Raul Carreno Laboratory Tests Test 09/14/20 17:04 White Blood Count 7.0 K/UL (4.8-10.8) Red Blood Count 3.77 M/UL (4.70-6.10) L Hemoglobin 10.8 G/DL (14.2-18.0) L Hematocrit 35.0 % (42.0-52.0) L Mean Corpuscular Volume 93 FL (80-99) Mean Corpuscular Hemoglobin 28.5 PG (27.0-31.0) Mean Corpuscular Hemoglobin Concent 30.7 G/DL (32.0-36.0) L Red Cell Distribution Width 14.7 % (11.6-14.8) Platelet Count 287 K/UL (150-450) Mean Platelet Volume 7.1 FL (6.5-10.1) Neutrophils (%) (Auto) 61.7 % (45.0-75.0) Lymphocytes (%) (Auto) 25.5 % (20.0-45.0) Monocytes (%) (Auto) 9.9 % (1.0-10.0) Eosinophils (%) (Auto) 1.8 % (0.0-3.0) Basophils (%) (Auto) 1.1 % (0.0-2.0) Prothrombin Time Pending Prothrombin Time INR Pending Activated Partial Thromboplast Time Pending Sodium Level 145 MMOL/L (136-145) Potassium Level 4.1 MMOL/L (3.5-5.1) Chloride Level 105 MMOL/L (98-107) Carbon Dioxide Level 29 MMOL/L (21-32) Anion Gap 11 mmol/L (5-15) Blood Urea Nitrogen 30 mg/dL (7-18) H Creatinine 1.1 MG/DL (0.55-1.30) Estimated Glomerular Filtration Rate > 60 mL/min (>60) Glucose Level 184 MG/DL (74-106) H Calcium Level 9.6 MG/DL (8.5-10.1) Total Bilirubin 0.2 MG/DL (0.2-1.0) Aspartate Amino Transferase (AST) 19 U/L (15-37) Alanine Aminotransferase (ALT) 18 U/L (12-78) Alkaline Phosphatase 84 U/L (46-116) Total Protein 8.0 G/DL (6.4-8.2) Albumin 4.0 G/DL (3.4-5.0) Globulin 4.0 g/dL Albumin/Globulin Ratio 1.0 (1.0-2.7) Last Vital Signs Date Time Temp Pulse Resp B/P (MAP) Pulse Ox O2 Delivery O2 Flow Rate FiO2 09/14/20 16:03 97.9 78 18 130/80 (97) 98 Room Air Disposition: ADMITTED INPATIENT Condition: Serious Tevin Rios M.D. Sep 14, 2020 16:26
[2020-09-14 17:21] LABS: BASOPHILS % (AUTO) 1.1 % (0.0-2.0); EOSINOPHILS % (AUTO) 1.8 % (0.0-3.0); HEMOGLOBIN 10.8 G/DL (14.2-18.0); LYMPHOCYTES % (AUTO) 25.5 % (20.0-45.0); MEAN CORPUSCULAR VOLUME 93 FL (80-99); MONOCYTES % (AUTO) 9.9 % (1.0-10.0); NEUTROPHILS % (AUTO) 61.7 % (45.0-75.0); PLATELET COUNT 287 K/UL (150-450); RED BLOOD COUNT 3.77 M/UL (4.70-6.10); RED CELL DISTRIBUTION WIDTH 14.7 % (11.6-14.8)
--- NOTE | 2020-09-14 17:24 | NUR ---
69-year-old male presents from [facility] for gastrostomy tube placement by Dr Carter. Patient has a medical hx of history of diabetes and stroke with dysphagia. Patient AOX1.
[2020-09-14 17:31] LABS: ANION GAP 11 mmol/L (5-15); BLOOD UREA NITROGEN 30 mg/dL (7-18); CALCIUM 9.6 MG/DL (8.5-10.1); CARBON DIOXIDE 29 MMOL/L (21-32); CHLORIDE 105 MMOL/L (98-107); CREATININE 1.1 MG/DL (0.55-1.30); POTASSIUM 4.1 MMOL/L (3.5-5.1); SODIUM 145 MMOL/L (136-145)
[2020-09-14 17:36] LABS: ALANINE AMINOTRANSFERASE 18 U/L (12-78); ALKALINE PHOSPHATASE 84 U/L (46-116); ASPARTATE AMINO TRANSFERASE 19 U/L (15-37); BILIRUBIN,TOTAL 0.2 MG/DL (0.2-1.0)
[2020-09-14] MEDS ORDERED: VITAMIN C500 M1 ORAL (17:42)
[2020-09-14] MEDS ORDERED: DULCOLAX10 MG RC (17:42)
[2020-09-14] MEDS ORDERED: ZINC50 M2 ORAL (17:42)
[2020-09-14] MEDS ORDERED: LACTULOSE20 GM/301 ORAL (17:42)
[2020-09-14] MEDS ORDERED: METFORMIN HCL500 M1 ORAL (17:42)
[2020-09-14] MEDS ORDERED: ATORVASTATIN CA10 MG ORAL (17:42)
[2020-09-14] MEDS ORDERED: MILK OF MA400 MG/51 ORAL (17:42)
[2020-09-14] MEDS ORDERED: FERROUS SULFAT325 MG ORAL (17:42)
[2020-09-14 17:43] VITALS: BP 130/80
[2020-09-14 19:28] VITALS: BP 154/84
--- NOTE | 2020-09-14 19:40 | NUR ---
TRANSFER TO FLOOR: Patient transferred to [facility] as ordered, per MD. Report given to MARGE Joshi. No belongings
--- NOTE | 2020-09-14 19:40 | NUR ---
Recieved report from ER nurse Prudence. Pt alert to name and that he is in the hospital. Pt arrived on the floor in stable condition via hospital bed. Pt lying in bed responds to ever no. no acute respiratory distress noted pt on room air. IV to right hand SL. site patent and intact. condom cather in place. bed in lowest position call light in place. will continue to monitor for treatment and care
--- NOTE | 2020-09-14 20:51 | NUR ---
Nurses notes. Dr. Carter notified of patients arrival to the floor new orders given. consult with Dr Barrios regarding medications pt admitted for being high aspiration risk with GT placement.
[2020-09-14] MEDS ORDERED: Potassium Chloride 10 MEQ in D5 1/2NS 1,000 ML IV SCH (23:30)
[2020-09-15] VITALS: BP 145/81
[2020-09-15] MEDS: D5 1/2NS 1,000 ML IV SCH ×2 (03:00→19:40)
[2020-09-15 04:00] VITALS: BP 140/88
[2020-09-15 06:37] LABS: BASOPHILS % (AUTO) 0.7 % (0.0-2.0); EOSINOPHILS % (AUTO) 1.4 % (0.0-3.0); HEMATOCRIT 32.6 % (42.0-52.0); HEMOGLOBIN 10.3 G/DL (14.2-18.0); LYMPHOCYTES % (AUTO) 20.7 % (20.0-45.0); MEAN CORPUSCULAR VOLUME 92 FL (80-99); MONOCYTES % (AUTO) 7.9 % (1.0-10.0); NEUTROPHILS % (AUTO) 69.3 % (45.0-75.0); PLATELET COUNT 290 K/UL (150-450); RED BLOOD COUNT 3.55 M/UL (4.70-6.10); RED CELL DISTRIBUTION WIDTH 12.9 % (11.6-14.8)
[2020-09-15 06:46] LABS: ANION GAP 9 mmol/L (5-15); BLOOD UREA NITROGEN 24 mg/dL (7-18); CALCIUM 9.3 MG/DL (8.5-10.1); CARBON DIOXIDE 29 MMOL/L (21-32); CHLORIDE 104 MMOL/L (98-107); SODIUM 142 MMOL/L (136-145)
[2020-09-15] MEDS: NovoLOG Insulin Flexpen SUBQ SCH ×4 (06:47→20:11)
--- NOTE | 2020-09-15 07:48 | NUR ---
Nurse Notes Report given to Jaymie BIRD
[2020-09-15 08:00] VITALS: BP 153/78
--- NOTE | 2020-09-15 08:17 | NUR ---
NURSE NOTES: RN received report from Madelyn and patient in bed. Patient is aao 2. Patient does not show s/s of respiratory distress or pain. Bed in lowest position, locked, bed alarm on. Call light within reach. IV site, intact, symptomatic and infusing. Will continue to monitor.
--- NOTE | 2020-09-15 08:26 | NUR ---
RD ASSESSMENT & RECOMMENDATIONS SEE CARE ACTIVITY FOR COMPLETE ASSESSMENT DAILY ESTIMATED NEEDS: Needs based on underweight, DM 49kg 30-40 kcals/kg 9773-1536 total kcals 1-1.5 g protein/kg 49-74 g total protein 25-35ml/kcal mL/kg 6863-6924 total fluid mLs NUTRITION DIAGNOSIS: Increased kcal/prot needs R/T underweight status as evidenced by pt is 73% IBW, suspected 8.7% unfavorable wt loss x2 years, adm for possible GT placement. PO DIET RECOMMENDATIONS: W/ TRACTOR CRANE OPERATOR eval, liberalized regular diet + Glucerna TID w/ meals ENTERAL NUTRITION RECOMMENDATIONS: Glucerna 1.2 goal of 55ml/hr x24 hrs to provide 1320ml, 1584 kcal, 79g pro, 1063ml free H2O - If part of POC, rec Glucerna 1.2. Start @low rate 25ml/hr for 6 hrs, advance as tolerated 10ml/hr q4-6 hrs to goal rate. - Flush per MD/ HOB over 30 degrees. ADDITIONAL RECOMMENDATIONS: - CALIBRATED bedscale wt for accurate CBW, weekly wt monitoring - F/up w/ POC, oral PO vs GT - rec TRACTOR CRANE OPERATOR eval prior to oral po intake
[2020-09-15 12:00] VITALS: BP 155/86
--- NOTE | 2020-09-15 13:00 | NUR ---
NURSE NOTES: RN received consent from EGD and peg placement from daughter Zakia via phone witnessed by destiny Jarrell charge nurse.
--- NOTE | 2020-09-15 13:00 | NUR ---
NURSE NOTES: RN made Dr. Carter aware that the patient has aspiration risk and that some of the home medications may be modified. and that the patient has HTN. Dr. Carter told RN to ask Dr. Stephens and that Dr. Carter will notified Dr. Cabrera for the BP. RN verified and carried out the order. No further orders from Dr. Stephens or Dr. Cbarera.
[2020-09-15 16:00] VITALS: BP 160/86
--- NOTE | 2020-09-15 16:48 | NUR ---
NURSE NOTES: RN made charge nurse Chrystal of rising BP. Chrystal said to monitor. Will continue to monitor.
--- NOTE | 2020-09-15 18:59 | Consultation ---
DATE OF CONSULTATION: 09/15/2020 CONSULTING PHYSICIAN: James Stephens MD CHIEF COMPLAINT: Referral for G-tube placement. HISTORY OF PRESENT ILLNESS: Most of the history is per chart. This is a 69-year-old male with past medical history of diabetes, stroke, dysphagia presented from [facility]. He is not eating and needs a G-tube placement. PAST MEDICAL HISTORY: 1. Hypertension. 2. COPD. 3. Diabetes. 4. CVA with left-sided weakness. 5. Seizure disorder. 6. Dysphagia. 7. Failure to thrive. 8. CHF. 9. Hypercholesteremia. 10. DVT. 11. Pneumonia. 12. Schizophrenia. ALLERGIES: No known drug allergies. MEDICATIONS: Please see medication reconciliation list. PAST SURGICAL HISTORY: Unknown. SOCIAL HISTORY: Currently lives in a [facility]. No history of tobacco, alcohol, or drug abuse. PHYSICAL EXAMINATION: VITAL SIGNS: Temperature is 97.9, pulse 74, respirations 20, blood pressure 153/78. HEENT: Normocephalic, atraumatic. Sclerae anicteric. NECK: Supple. No evidence of obvious lymphadenopathy. CARDIOVASCULAR: Regular rate and rhythm. Plus S1-S2. LUNGS: Clear to auscultation bilaterally. ABDOMEN: Positive bowel sounds. Soft and nontender. No rebound. No guarding. No peritoneal sign. EXTREMITIES: No cyanosis, no clubbing, no edema. LABORATORY DATA: White count is 8, hemoglobin 10, hematocrit 32, platelets 290. BUN is 24, creatinine is 1.0, glucose is 215. ASSESSMENT AND PLAN: This is a 69-year-old male, referred to us for G-tube placement given patient is not eating. Plan to place patient NPO after midnight. Consented family for PEG placement. Patient will need a dose of antibiotics prior to the procedure. Meanwhile, we are going to order anemia workup. I want to thank Dr. Nura Carter for this kind referral. James Stephens M.D. DR: CARSON JOB#: [id number] CC: Nura Carter D.O.
--- NOTE | 2020-09-15 19:16 | NUR ---
NURSE NOTES: Rn notified Dr. Becker of elevated BP. No further orders at this time.
--- NOTE | 2020-09-15 19:32 | NUR ---
NURSE HAND-OFF: Important Events on Shift:medication orders pending, HTN, g-tube placement tomorrow Patient Status: HTN Diet: NPO Pending Orders: medications Pending Results/Labs:n/a Pending MD notification:n/a Latest Vital Signs: Temperature 97.9 , Pulse 72 , B/P 160 /86 , Respiratory Rate 20 , O2 SAT 95 , Room Air, O2 Flow Rate . Vital Sign Comment: HTN Latest Ledbetter Fall Score: 50 Fall Risk: High Risk Safety Measures: Call light Within Reach, Bed Alarm Zone 1, Side Rails Side Rails x2, Bed position Low and Locked. Fall Precautions: Yellow Socks Yellow Gown Door Sign Patient Fall Education Report given to Stephanie.
--- NOTE | 2020-09-15 19:44 | History and Physical Report ---
DATE OF ADMISSION: 09/14/2020 DATE AND TIME SEEN: 09/15/2020 at 1 p.m. CONSULTANTS: 1. James Stephens MD 2. Berto Umana MD 3. Javier Becker MD CHIEF COMPLAINT: Failure to thrive, weakness. BRIEF HISTORY: This is a 69-year-old male from [facility], presented with increased lethargy, weakness, and failure to thrive for about a week. Patient was diagnosed with the above, sent to [facility] for evaluation and possible G-tube placement. Currently calm in bed, confused, not talking much. REVIEW OF SYSTEMS: Unavailable. PAST MEDICAL HISTORY: Malnutrition, anemia, diabetes, hypertension, COPD, seizure, CVA. PAST SURGICAL HISTORY: Unknown. ALLERGIES: Denies. MEDICATIONS: Include insulin, potassium. SOCIAL HISTORY: No smoking. No alcohol. No intravenous drug abuse. FAMILY HISTORY: Noncontributory. PHYSICAL EXAMINATION: GENERAL: Calm in bed, oriented x1, no acute distress. VITAL SIGNS: Temperature 97, pulse 76, respirations 20, blood pressure 155/86. CARDIOVASCULAR: No murmur. LUNGS: Distant and clear. ABDOMEN: Bowel sounds positive. Soft, nontender, nondistended. EXTREMITIES: No cyanosis, clubbing, or edema. NEUROLOGIC: Patient moves all extremities, slightly weak. LABORATORY AND DIAGNOSTIC DATA: Labs at this time show hemoglobin and hematocrit 10/32, otherwise CBC is normal. BMP shows BUN 24, glucose 215, otherwise BMP is normal. INR is 1.0. ASSESSMENT: 1. Failure to thrive. 2. Weakness. 3. Malnutrition. 4. Diabetes. 5. Hypertension. 6. COPD. 7. Seizure. 8. CVA. 9. Anemia. PLAN: 1. Resume home medications. 2. Blood pressure, blood sugar, seizure control. 3. Dietary followup. 4. PT/OT evaluation. 5. Possible G-tube placement. 6. CBC, BMP in morning. Nura Carter D.O. DR: CHRISTINA JOB#: [id number] CC:
[2020-09-15 20:00] VITALS: BP 157/94
[2020-09-15] MEDS: Heparin 5000 units/ml inj SUBQ SCH (20:11)
--- NOTE | 2020-09-15 20:33 | NUR ---
NURSE NOTES: Received patient awake in bed, no s/s of acute distress, side rails padded for seizure precaution. Iv access patent, running IVF maintenance, dressing dry and intact. Bed low and locked, patient wearing non slip socks.
[2020-09-16] VITALS (15 sets, daily range): BP systolic 110–197; BP diastolic 71–105
[2020-09-16 06:12] LABS: BASOPHILS % (AUTO) 0.8 % (0.0-2.0); EOSINOPHILS % (AUTO) 1.6 % (0.0-3.0); HEMATOCRIT 33.4 % (42.0-52.0); HEMOGLOBIN 10.7 G/DL (14.2-18.0); LYMPHOCYTES % (AUTO) 28.2 % (20.0-45.0); MEAN CORPUSCULAR VOLUME 92 FL (80-99); MONOCYTES % (AUTO) 8.8 % (1.0-10.0); NEUTROPHILS % (AUTO) 60.6 % (45.0-75.0); PLATELET COUNT 305 K/UL (150-450); RED BLOOD COUNT 3.64 M/UL (4.70-6.10); RED CELL DISTRIBUTION WIDTH 13.2 % (11.6-14.8); WHITE BLOOD COUNT 6.3 K/UL (4.8-10.8)
[2020-09-16] MEDS: NovoLOG Insulin Flexpen SUBQ SCH ×4 (06:17→20:54)
[2020-09-16 06:23] LABS: INR 1.1 (0.9-1.1)
[2020-09-16 06:41] LABS: % IRON SATURATION 25 % (15-50); IRON 89 ug/dL (50-175); TOTAL IRON BINDING CAPACITY 354 ug/dL (250-450)
[2020-09-16 06:52] LABS: ANION GAP 8 mmol/L (5-15); BLOOD UREA NITROGEN 15 mg/dL (7-18); CALCIUM 9.2 MG/DL (8.5-10.1); CARBON DIOXIDE 29 MMOL/L (21-32); CHLORIDE 105 MMOL/L (98-107); POTASSIUM 3.8 MMOL/L (3.5-5.1); SODIUM 142 MMOL/L (136-145)
--- NOTE | 2020-09-16 07:16 | NUR ---
NURSE NOTES: Report given to MARGE Genao. G tube placement scheduled for 0900, AM nurse aware.
[2020-09-16] MEDS ORDERED: cefOXitin Sod 1 GM in D5W 55 ML IVPB SCH (07:30)
--- NOTE | 2020-09-16 07:30 | NUR ---
NURSE NOTES: RN received report from Stephanie and patient in bed. Patient is aaoX2, shows no s/s of respiratory distress or pain. IV intact, clean, patent and asymptomatic. Bed in lowest position and locked. Call light within reach. Legs elevated. Kept NPO for procedure in the morning. Will continue to monitor.
--- NOTE | 2020-09-16 08:24 | Cardiac Electrophysiology PN ---
Subjective Subjective [id number] Objective Last 24 Hour Vital Signs Date Time Temp Pulse Resp B/P (MAP) Pulse Ox O2 Delivery O2 Flow Rate FiO2 09/16/20 04:00 98.4 69 20 135/90 (105) 96 09/16/20 00:00 98.2 71 20 147/87 (107) 96 09/15/20 23:15 Room Air 09/15/20 20:00 98.8 72 20 157/94 (115) 95 09/15/20 16:00 97.9 72 20 160/86 (110) 95 09/15/20 12:00 97.6 76 20 155/86 (109) 95 09/15/20 09:00 Room Air Intake and Output 09/15/20 09/16/20 19:00 07:00 Intake Total 720 ml Output Total 650 ml 725 ml Balance 70 ml -725 ml IV Total 720 ml Output Urine Total 650 ml 725 ml # Voids 3 Laboratory Tests Test 09/15/20 11:44 09/15/20 16:19 09/16/20 04:45 POC Whole Blood Glucose 250 MG/DL (74-106) H 159 MG/DL (74-106) H White Blood Count 6.3 K/UL (4.8-10.8) Red Blood Count 3.64 M/UL (4.70-6.10) L Hemoglobin 10.7 G/DL (14.2-18.0) L Hematocrit 33.4 % (42.0-52.0) L Mean Corpuscular Volume 92 FL (80-99) Mean Corpuscular Hemoglobin 29.4 PG (27.0-31.0) Mean Corpuscular Hemoglobin Concent 32.1 G/DL (32.0-36.0) Red Cell Distribution Width 13.2 % (11.6-14.8) Platelet Count 305 K/UL (150-450) Mean Platelet Volume 7.4 FL (6.5-10.1) Neutrophils (%) (Auto) 60.6 % (45.0-75.0) Lymphocytes (%) (Auto) 28.2 % (20.0-45.0) Monocytes (%) (Auto) 8.8 % (1.0-10.0) Eosinophils (%) (Auto) 1.6 % (0.0-3.0) Basophils (%) (Auto) 0.8 % (0.0-2.0) Prothrombin Time 11.7 SEC (9.30-11.50) H Prothromb Time International Ratio 1.1 (0.9-1.1) Activated Partial Thromboplast Time 25 SEC (23-33) Sodium Level 142 MMOL/L (136-145) Potassium Level 3.8 MMOL/L (3.5-5.1) Chloride Level 105 MMOL/L (98-107) Carbon Dioxide Level 29 MMOL/L (21-32) Anion Gap 8 mmol/L (5-15) Blood Urea Nitrogen 15 mg/dL (7-18) Creatinine 1.0 MG/DL (0.55-1.30) Estimat Glomerular Filtration Rate > 60 mL/min (>60) Glucose Level 181 MG/DL (74-106) H Calcium Level 9.2 MG/DL (8.5-10.1) Iron Level 89 ug/dL (50-175) Total Iron Binding Capacity 354 ug/dL (250-450) Percent Iron Saturation 25 % (15-50) Unsaturated Iron Binding 265 ug/dL (112-346) Microbiology Date/Time Source Procedure Growth Status 09/14/20 17:04 Nasopharynx SARS-CoV-2 Antigen (Rapid)(LIZA) - Final Complete Javier Becker MD Sep 16, 2020 08:24
--- NOTE | 2020-09-16 08:30 | NUR ---
NURSE NOTES: Patient left the floor for gtube placement with stable vitals via hospital bed. Blood glucose was 245. Dr. Carter is made aware, no further orders.
--- NOTE | 2020-09-16 08:56 | Pre-Procedure Note/Attestation ---
Pre-Procedure Note/Attestation Complete Prior to Procedure Planned Procedure: not applicable Procedure Narrative: egd/peg Indications for Procedure Pre-Operative Diagnosis: dysphagia Attestation I attest that I discussed the nature of the procedure; its benefits; risks and complications; and alternatives (and the risks and benefits of such alternatives), prior to the procedure, with the patient (or the patient's legal public utilities sales representative). I attest that, if there was a reasonable possibility of needing a blood transfu analisa, the patient (or the patient's legal public utilities sales representative) was given the [facility] standardized written summary, pursuant to the Gary Nathaniel Blood Safety Act ([place] Health and Safety Code # 1645, as amended). I attest that I re-evaluated the patient just prior to the surgery and that there has been no change in the patient's H&P, except as documented below: James Stephens MD Sep 16, 2020 08:56
[2020-09-16] MEDS: Heparin 5000 units/ml inj SUBQ SCH ×2 (09:00→20:53)
[2020-09-16] MEDS ORDERED: Lidocaine 1% MPF 10mg/ml 5ml ONE (09:00)
[2020-09-16] MEDS ORDERED: NS 500ML IVPB ONE (09:00)
[2020-09-16] MEDS ORDERED: LR 1000ml ONE (09:00)
--- NOTE | 2020-09-16 09:00 | NUR ---
PT NOTE Attempted to see patient for PT evaluation. Patient off floor for PEG placement. Will re-attempt later as schedule permits, Regina BIRD notified.
--- NOTE | 2020-09-16 09:04 | General Progress Note ---
Subjective Allergies: Coded Allergies: No Known Allergies (Unverified , 01/05/13) All Systems: reviewed and negative except above Subjective calm in bed Objective Last 24 Hour Vital Signs Date Time Temp Pulse Resp B/P (MAP) Pulse Ox O2 Delivery O2 Flow Rate FiO2 09/16/20 04:00 98.4 69 20 135/90 (105) 96 09/16/20 00:00 98.2 71 20 147/87 (107) 96 09/15/20 23:15 Room Air 09/15/20 20:00 98.8 72 20 157/94 (115) 95 09/15/20 16:00 97.9 72 20 160/86 (110) 95 09/15/20 12:00 97.6 76 20 155/86 (109) 95 Intake and Output 09/15/20 09/16/20 19:00 07:00 Intake Total 720 ml Output Total 650 ml 725 ml Balance 70 ml -725 ml IV Total 720 ml Output Urine Total 650 ml 725 ml # Voids 3 Laboratory Tests 09/15/20 11:44: POC Whole Blood Glucose 250H 09/15/20 16:19: POC Whole Blood Glucose 159H 09/16/20 04:45: White Blood Count 6.3, Red Blood Count 3.64L, Hemoglobin 10.7L, Hematocrit 33.4L , Mean Corpuscular Volume 92, Mean Corpuscular Hemoglobin 29.4, Mean Corpuscular Hemoglobin Concent 32.1, Red Cell Distribution Width 13.2, Platelet Count 305, Mean Platelet Volume 7.4, Neutrophils (%) (Auto) 60.6, Lymphocytes (%) (Auto) 28.2, Monocytes (%) (Auto) 8.8, Eosinophils (%) (Auto) 1.6, Basophils (%) (Auto) 0.8, Prothrombin Time 11.7H, Prothromb Time International Ratio 1.1, Activated Partial Thromboplast Time 25, Sodium Level 142, Potassium Level 3.8, Chloride Level 105, Carbon Dioxide Level 29, Anion Gap 8, Blood Urea Nitrogen 15, Creatinine 1.0, Estimat Glomerular Filtration Rate > 60, Glucose Level 181H, Calcium Level 9.2, Iron Level 89, Total Iron Binding Capacity 354, Percent Iron Saturation 25, Unsaturated Iron Binding 265 09/16/20 08:47: POC Whole Blood Glucose 245H Height (Feet): 5 Height (Inches): 8.00 Weight (Pounds): 160 General Appearance: lethargic EENT: normal ENT inspection Neck: normal alignment Cardiovascular: normal peripheral pulses, normal rate, regular rhythm Respiratory/Chest: chest wall non-tender, lungs clear, normal breath sounds Abdomen: normal bowel sounds, non tender, soft Extremities: normal inspection Edema: no edema noted Arm (L), no edema noted Arm (R), no edema noted Leg (L), no edema noted Leg (R), no edema noted Pedal (L), no edema noted Pedal (R), no edema noted Generalized Neurologic: responsive, motor weakness Skin: normal pigmentation, warm/dry Assessment/Plan Problem List: (1) CVA (cerebral vascular accident) ICD Codes: I63.9 - Cerebral infarction, unspecified SNOMED: 089653518 (2) COPD (chronic obstructive pulmonary disease) ICD Codes: J44.9 - Chronic obstructive pulmonary disease, unspecified SNOMED: 44835270 (3) Anemia ICD Codes: D64.9 - Anemia, unspecified SNOMED: 401194054 (4) Seizure disorder ICD Codes: G40.909 - Seizure disorder SNOMED: 347679052 (5) HTN (hypertension) ICD Codes: I10 - Hypertension SNOMED: 57805989 (6) DM (diabetes mellitus) ICD Codes: E11.9 - Diabetes mellitus SNOMED: 15573506 (7) Failure to thrive SNOMED: 86596928 Status: unchanged Assessment/Plan: pt diet gtube cbc bmp am dc to aru if clear Nura Carter DO Sep 16, 2020 09:04
--- NOTE | 2020-09-16 09:34 | Anethesia Preoperative Eval ---
Anesthesia Pre-op PMH/ROS General Date of Evaluation: Sep 16, 2020 Time of Evaluation: 08:49 Anesthesiologist: Jose ASA Score: ASA 4 Mallampati Score Class I : Soft palate, uvula, fauces, pillars visible Class II: Soft palate, uvula, fauces visible Class III: Soft palate, base of uvula visible Class IV: Only hard plate visible Mallampati Classification: Class III Surgeon: Kat Diagnosis: Malnutrition Surgical Procedure: PEG Anesthesia History: none Family History: no anesthesia problems Allergies: Coded Allergies: No Known Allergies (Unverified , 01/05/13) Medications: see eMAR Patient NPO?: Yes Past Medical History Cardiovascular: Reports: HTN, other - CHF, HL Pulmonary: Reports: COPD - Covid Pneumonia Neurologic/Psychiatric: Reports: dementia - Seizures, depression/anxiety Endocrine: Reports: DM Hematology/Immune: Reports: anemia Musculoskeletal/Integumentary: Reports: other - Contractures Anesthesia Pre-op Phys. Exam Physician Exam Last Vital Signs Date Time Temp Pulse Resp B/P (MAP) Pulse Ox O2 Delivery O2 Flow Rate FiO2 09/16/20 04:00 98.4 69 20 135/90 (105) 96 09/15/20 23:15 Room Air Constitutional: NAD Neurologic: CN 2-12 intact Cardiovascular: RRR Respiratory: CTA Gastrointestinal: S/NT/ND Airway Exam Mallampati Score: Class III MO: limited ROM: limited Teeth: missing Anesthesia Pre-op A/P Labs Hematology Test 09/16/20 04:45 White Blood Count 6.3 K/UL (4.8-10.8) Red Blood Count 3.64 M/UL (4.70-6.10) L Hemoglobin 10.7 G/DL (14.2-18.0) L Hematocrit 33.4 % (42.0-52.0) L Mean Corpuscular Volume 92 FL (80-99) Mean Corpuscular Hemoglobin 29.4 PG (27.0-31.0) Mean Corpuscular Hemoglobin Concent 32.1 G/DL (32.0-36.0) Red Cell Distribution Width 13.2 % (11.6-14.8) Platelet Count 305 K/UL (150-450) Mean Platelet Volume 7.4 FL (6.5-10.1) Neutrophils (%) (Auto) 60.6 % (45.0-75.0) Lymphocytes (%) (Auto) 28.2 % (20.0-45.0) Monocytes (%) (Auto) 8.8 % (1.0-10.0) Eosinophils (%) (Auto) 1.6 % (0.0-3.0) Basophils (%) (Auto) 0.8 % (0.0-2.0) Coagulation Test 09/16/20 04:45 Prothrombin Time 11.7 SEC (9.30-11.50) H Prothromb Time International Ratio 1.1 (0.9-1.1) Activated Partial Thromboplast Time 25 SEC (23-33) Chemistry Test 09/15/20 11:44 09/15/20 16:19 09/16/20 04:45 09/16/20 08:47 POC Whole Blood Glucose 250 MG/DL (74-106) H 159 MG/DL (74-106) H 245 MG/DL (74-106) H Sodium Level 142 MMOL/L (136-145) Potassium Level 3.8 MMOL/L (3.5-5.1) Chloride Level 105 MMOL/L (98-107) Carbon Dioxide Level 29 MMOL/L (21-32) Anion Gap 8 mmol/L (5-15) Blood Urea Nitrogen 15 mg/dL (7-18) Creatinine 1.0 MG/DL (0.55-1.30) Estimat Glomerular Filtration Rate > 60 mL/min (>60) Glucose Level 181 MG/DL (74-106) H Calcium Level 9.2 MG/DL (8.5-10.1) Iron Level 89 ug/dL (50-175) Total Iron Binding Capacity 354 ug/dL (250-450) Percent Iron Saturation 25 % (15-50) Unsaturated Iron Binding 265 ug/dL (112-346) Risk Assessment & Plan Assessment: ASA 4 Plan: TIVA Status Change Before Surgery: Ronni Evans MD Sep 16, 2020 09:34
--- NOTE | 2020-09-16 09:35 | Immediate Post-Op Evaluation ---
Immediate Post-Op Evalulation Immediate Post-Op Evalulation Procedure: PEG Date of Evaluation: Sep 16, 2020 Time of Evaluation: 09:58 IV Fluids: 400 NS Blood Products: 0 Estimated Blood Loss: 1 Urinary Output: 0 Blood Pressure Systolic: 184 Blood Pressure Diastolic: 94 Pulse Rate: 66 Respiratory Rate: 16 O2 Sat by Pulse Oximetry: 100 Temperature (Fahrenheit): 98.7 Pain Score (1-10): 0 Nausea: No Vomiting: No Complications 0 Patient Status: awake, reacts, patent, none Hydration Status: adequate Ronni Garcia MD Sep 16, 2020 09:35
--- NOTE | 2020-09-16 09:36 | 48 Hour Post Anesthesia Eval ---
Post Anesthesia Evaluation Procedure: PEG Date of Evaluation: Sep 16, 2020 Time of Evaluation: 12:12 Blood Pressure Systolic: 181 0: 93 Pulse Rate: 64 Respiratory Rate: 18 Temperature (Fahrenheit): 98.6 O2 Sat by Pulse Oximetry: 97 Airway: patent Nausea: No Vomiting: No Pain Intensity: 0 Hydration Status: adequate Cardiopulmonary Status: STABLE Mental Status/LOC: patient returned to baseline Follow-up Care/Observations: 0 Post-Anesthesia Complications: 0 Follow-up care needed: N/A Ronni Garcia MD Sep 16, 2020 09:36
--- NOTE | 2020-09-16 09:52 | Endoscopy Procedure Note ---
Endoscopy Procedure Note General Indication for Procedure: dysphagi Procedures Performed: EGD, PEG Operative Findings/Diagnosis: saame Specimen: yes Pt Tolerated Procedure Well: Yes Estimated Blood Loss: none Anesthesia Anesthesiologist: gee Anesthesia: MAC Inserted Devices Implant(s) used?: No GI Core Measures 50 yrs or older w/o bx or poly: Not Applicable 10yrs. F/U recommended: Not Applicable James Stephens MD Sep 16, 2020 09:52
[2020-09-16] MEDS: Lisinopril 10mg tab ORAL SCH (10:51)
--- NOTE | 2020-09-16 11:04 | NUR ---
NURSE NOTES: RN received the report from Zuleika Patel from recovery room and patient in bed. Patient denies pain. Patient came from the recovery room with unstable vital signs: Oz 83-85%, BP: 192/96 Temp: 97.1, RR 20. RN put 4 L of O2 and patient now satting at 97%. RN gave BP med: Lisonopril and clonidine. RN notified Dr. Carter and received order to give 2L of NC; titrate to keep above 92$. Order verified and carried out. G tube dressing intact, clean and dry. Binder is on. Will continue to monitor.
--- NOTE | 2020-09-16 11:12 | NUR ---
*-*DISCHARGE PLANNING*-* PATIENT HAS BEEN REFERRED TO: [facility] P: [phone] S/W VÍCTOR, WILL CALL BACK AFTER REVIEW
[2020-09-16] MEDS: D5 1/2NS 1,000 ML IV SCH (12:09)
--- NOTE | 2020-09-16 13:14 | Procedure Note ---
DATE OF PROCEDURE: 09/16/2020 SURGEON: James Stephens MD. PROCEDURE: Upper endoscopy with biopsy and PEG placement. ANESTHESIA: Per Dr. Garcia. INSTRUMENT: Olympus adult flexible upper endoscope. INDICATION: Dysphagia. REASON FOR PROCEDURE: The procedure, risks, benefits, and possible consequences, including hemorrhage, aspiration, perforation and infection, and alternative treatments, were explained to the patient/legal guardian by Dr. James Stephens and the patient/legal guardian understood and accepted these risks. PROCEDURE IN DETAIL: After informed consent was obtained and the patient was adequately sedated, Olympus upper endoscope was advanced from mouth into the second portion of the duodenum and retroflexion was performed in the stomach. The patient had evidence of diffuse atrophic gastritis. Random biopsy from antrum was obtained to rule out H. pylori infection. Then under endoscopic guidance and under sterile condition, a 20-Bulgarian pull type of G-tube was successfully placed in epigastric area. The distance from the tip of the tube to skin was about 2.5 cm in size. The patient tolerated the procedure very well without any complication. SUMMARY OF FINDINGS: 1. Atrophic gastritis, status post biopsy. 2. Status post successful PEG placement. RECOMMENDATIONS: 1. Abdominal binder. 2. Elevate the head of the bed at all times. 3. G-tube flush. 4. G-tube care. 5. Start tube feeding later today. I want to thank Dr. Nura Carter for this kind referral. James Stephens M.D. DR: OZZIE JOB#: [id number] CC: Nura Carter DO.
--- NOTE | 2020-09-16 14:42 | NUR ---
PT NOTE Second attempt to see patient for PT evaluation. PT evaluation deferred at this time due to elevated BP at 168/99. Regina BIRD notified, will follow up tomorrow.
--- NOTE | 2020-09-16 14:50 | NUR ---
NURSE NOTES: At 1436, BP was 168/99. When RN checked the BP again at 1450, it was down to 140/85 so RN did not administer PRN Clonidine.
--- NOTE | 2020-09-16 14:59 | Consultation ---
DATE OF CONSULTATION: 09/16/2020 CARDIOLOGY CONSULTATION CONSULTING PHYSICIAN: Javier Becker MD. REFERRING PHYSICIAN: Nura Carter DO. REASON FOR CONSULTATION: Management of hypertension. HISTORY OF PRESENT ILLNESS: The patient is a 69-year-old gentleman with a history of hypertension, diabetes, and history of CVA and left hemiplegia as well as dysphagia, was brought from long-term facility at [facility] for G-tube placement as the patient is high risk for aspiration. The patient noted to be hypertensive. The patient has not been able to take p.o. and Cardiology consultation was obtained for further evaluation. REVIEW OF SYSTEMS: Cannot be obtained in view of the patient's mental status. PAST MEDICAL HISTORY: Include hypertension, diabetes, COPD, CVA with left-sided weakness, seizure, and dysphagia. PHYSICAL EXAMINATION: VITAL SIGNS: Show blood pressure of 135/90, pulse 69, respirations 18, and temperature 98.4. HEAD AND NECK: Showed no JVD. LUNGS: Coarse rhonchi. CARDIOVASCULAR: Shows regular S1 and S2 with no gallop. ABDOMEN: Soft. EXTREMITIES: Upper extremities are contracted. No pitting edema. LABORATORY AND DIAGNOSTIC DATA: His labs show white count of , hemoglobin 10.7, hematocrit 33.4, and platelet count of 305,000. Sodium 142, potassium 3.8, BUN of 15, creatinine 1.0, and glucose of 215. ASSESSMENT AND PLAN: 1. Hypertension. We will start the patient on lisinopril 10 mg daily, but most likely the patient will get that after he has a G-tube. I will add p.r.n. clonidine as well. 2. Lkc-pkikyzx-jjaqazrcf diabetes, on insulin. 3. History of CVA and seizure disorder. 4. Dysphagia. The patient is scheduled for EGD and PEG placement today. 5. History of left fracture. Thank you very much for allowing me to participate in the care of this patient. Please do not hesitate to contact if you have any questions regarding my evaluation. Javier Becker M.D. DR: CORNELIO JOB#: [id number] CC:
--- NOTE | 2020-09-16 15:47 | NUR ---
*-*DISCHARGE PLANNING*-* PATIENT HAS BEEN REFERRED TO: [facility] P: [phone] S/W MANOJ WILL CALL BACK WITH ROOM#.
--- NOTE | 2020-09-16 16:30 | NUR ---
NURSE NOTES: BP at 1600 was 176/96. When RN rechecked BP at 1700 and 1815, they were 130/75 and 150/73 so patient did not need PRN clonidine.
--- NOTE | 2020-09-16 18:20 | NUR ---
5 Addendum: 09/16/20 at 1820 by Regina Genao RN Error
--- NOTE | 2020-09-16 18:20 | NUR ---
NURSE NOTES: RN found the patient's hand under the abdominal binder. The anchor seems to be partially out. There are some dry drainage on the gtube site but tube is not leaking. RN notified Dr. Stephnes and Dr. Carter. No further orders at this time.
--- NOTE | 2020-09-16 18:33 | NUR ---
Plush Weaver: Rn received order from Dr. Stephens to hold G-tube feeding until he checks the site tomorrow. RN verified the order and carried out.
--- NOTE | 2020-09-16 19:45 | NUR ---
NURSE HAND-OFF: Important Events on Shift:g-tube placement, g-tube may be pulled out, gtube stopped Patient Status: HTN Diet: gtube feeding Pending Orders: gtube feeding Pending Results/Labs:n/a Pending MD notification:n/a Latest Vital Signs: Temperature 97.9 , Pulse 73 , B/P / , Respiratory Rate 19 , O2 SAT 100 , Room Air, O2 Flow Rate 6 . Vital Sign Comment: HTN Latest Ledbetter Fall Score: 50 Fall Risk: High Risk Safety Measures: Call light Within Reach, Bed Alarm Zone 1, Side Rails Side Rails x2, Bed position Low and Locked. Fall Precautions: Yellow Socks Yellow Gown Door Sign Patient Fall Education Report given to John.
--- NOTE | 2020-09-16 19:50 | NUR ---
NURSE NOTES: The resident is alert and oriented x1 and is sleeping and doesn't appear to be in any distress. The patient is on Gtube but is presently on hold per the GI Dr. as endorsed.The patient is also running fluids. The Resp is even and unlabored and he has a Right hand 20g that is patent and asymptomatic. Will continue to monitor as indicated.
--- NOTE | 2020-09-16 20:14 | Consultation ---
DATE OF CONSULTATION: 09/16/2020 PSYCHOTHERAPY CONSULTATION PROGRESS NOTE CONSULTING PHYSICIAN: Beulah Villavicencio PsyD TREATING ATTENDING PHYSICIAN: Nura Carter D.O. HISTORY OF PRESENT ILLNESS: This patient is a male patient 69 years old from [facility]. The patient admitted to the hospital for failure to thrive, needed possible G-tube placement, schizoaffective disorder. The patient has been confused, disorganized, and helpless. For these reasons, he was referred for psychotherapeutic services. At this time, there is no indication of suicidal or homicidal thoughts of ideation. There is no indication of auditory or visual hallucinations for the patient. He continues to remain very confused, disorganized, and altered mental status. At this time, the patient is a poor historian. PAST MEDICAL HISTORY: Incudes history of malnutrition, anemia, diabetes, hypertension, COPD, CVA, seizures. ALLERGIES: No known drug allergies. SUBSTANCE ABUSE HISTORY: There is no indication of alcohol use, illicit substance use, or smoking cigarettes. PSYCHIATRIC HISTORY: He has a history of schizoaffective disorder, bipolar type, has been treated with psychotropic medications in the past. SOCIAL HISTORY: The patient is a 69-year-old male patient from [facility]. Financially sustained through [employer]. MENTAL STATUS EXAMINATION: Alert and oriented to person. Mood is dysphoric. Affect is blunted. Thought process is disorganized. Thought content, confused. The patient has poor attention and concentration. Poor insight, judgment, and impulse control. PROVIDED THE PATIENT WITH: 1. Reality orientation, oriented to person, place, time, and situation. 2. Attempted to provide the patient with psychotherapy, however, the patient is very confused, disorganized, and helpless at this time. DIAGNOSES: 1. Schizoaffective disorder, bipolar type. 2. CVA. 3. COPD. 4. Hypertension. 5. Diabetes. 6. Psychosocial stressors are moderate. STRENGTHS: The patient is from a care home facility. WEAKNESSES: At this time, the patient remains disorganized, confused, and helpless. This clinician has reviewed the patient's chart and discussed treatment with treatment team. PLAN: Plan is to maintain medication compliance with positive coping skills . Psychotherapy services for this patient is 45 minutes. Beulah Villavicencio PsyD. DR: ALY JOB#: [id number] CC:
[2020-09-17] VITALS: BP 119/66
[2020-09-17 04:00] VITALS: BP 132/65
[2020-09-17] MEDS: D5 1/2NS 1,000 ML IV SCH ×2 (05:00→21:41)
--- NOTE | 2020-09-17 05:36 | NUR ---
NURSE NOTES: The patient was confused and was yelling and agitating most of the night. consulting on Dr. Carter ordered that is ok to resumed home Meds.
--- NOTE | 2020-09-17 06:08 | General Progress Note ---
Subjective HEENT: Denies: no symptoms, eye pain, blurred vision, tearing, double vision, ear pain, ear discharge, nose pain, nose congestion, throat pain, throat swelling, mouth pain, mouth swelling, other Cardiovascular: Denies: no symptoms, chest pain, edema, irregular heart rate, lightheadedness, palpitations, syncope, other Gastrointestinal/Abdominal: Denies: no symptoms, abdomen distended, abdominal pain, black stools, tarry stools, blood in stool, constipated, diarrhea, difficulty swallowing, nausea, poor appetite, poor fluid intake, rectal bleeding, vomiting, other Neurologic/Psychiatric: Denies: no symptoms, anxiety, depressed, emotional problems, headache, numbness, paresthesia, pre-existing deficit, seizure, tingling, tremors, weakness, other Endocrine: Denies: no symptoms, excessive sweating, flushing, intolerance to cold, intolerance to heat, increased hunger, increased thirst, increased urine, unexplained weight gain, unexplained weight loss, other Hematologic/Lymphatic: Denies: no symptoms, anemia, easy bleeding, easy bruising, other Allergies: Coded Allergies: No Known Allergies (Unverified , 01/05/13) Subjective 09/17 is calm, cooperative, talked to John Rn, to restart home psych and antiseizure meds Objective Last 24 Hour Vital Signs Date Time Temp Pulse Resp B/P (MAP) Pulse Ox O2 Delivery O2 Flow Rate FiO2 09/17/20 00:00 98.5 64 18 119/66 (83) 99 09/16/20 21:00 Room Air 09/16/20 20:00 98.9 70 20 110/71 (84) 99 09/16/20 17:34 130/75 (93) 09/16/20 16:20 130/75 (93) 09/16/20 16:00 97.9 73 19 176/96 (122) 100 09/16/20 14:50 140/85 (103) 09/16/20 14:34 168/99 (122) 09/16/20 12:00 98.2 64 20 157/105 (122) 97 09/16/20 10:51 192/96 09/16/20 10:50 192/96 09/16/20 10:40 97.1 60 20 192/96 (128) 96 09/16/20 10:00 98.6 61 16 197/99 96 Room Air 09/16/20 09:55 54 14 184/93 97 Room Air 09/16/20 09:50 60 11 180/90 100 Simple Mask 6 09/16/20 09:45 97.7 66 12 184/94 100 Simple Mask 6 09/16/20 09:43 64 18 97 09/16/20 09:00 Room Air 09/16/20 08:00 97.5 66 19 153/90 (111) 95 Intake and Output 09/16/20 09/17/20 19:00 07:00 Intake Total 920 ml 60 ml Output Total 675 ml Balance 245 ml 60 ml IV Total 920 ml 60 ml Output Urine Total 675 ml Estimated Blood Loss 0 ml Laboratory Tests 09/16/20 08:47: POC Whole Blood Glucose 245H 09/16/20 12:04: POC Whole Blood Glucose 203H 09/16/20 16:48: POC Whole Blood Glucose 168H 09/16/20 20:51: POC Whole Blood Glucose 141H Height (Feet): 5 Height (Inches): 0.00 Weight (Pounds): 160 Objective General Appearance: lethargic EENT: normal ENT inspection Neck: normal alignment Cardiovascular: normal peripheral pulses, normal rate, regular rhythm Respiratory/Chest: chest wall non-tender, lungs clear, normal breath sounds Abdomen: normal bowel sounds, non tender, soft Extremities: normal inspection Edema: no edema noted Arm (L), no edema noted Arm (R), no edema noted Leg (L), no edema noted Leg (R), no edema noted Pedal (L), no edema noted Pedal (R), no edema noted Generalized Neurologic: responsive, motor weakness Skin: normal pigmentation, warm/dry Assessment/Plan Status: unchanged Assessment/Plan: Assessment/Plan Problem List: (1) CVA (cerebral vascular accident) ICD Codes: I63.9 - Cerebral infarction, unspecified SNOMED: 781935060 (2) COPD (chronic obstructive pulmonary disease) ICD Codes: J44.9 - Chronic obstructive pulmonary disease, unspecified SNOMED: 78810961 (3) Anemia ICD Codes: D64.9 - Anemia, unspecified SNOMED: 751213924 (4) Seizure disorder ICD Codes: G40.909 - Seizure disorder SNOMED: 854551372 (5) HTN (hypertension) ICD Codes: I10 - Hypertension SNOMED: 54171811 (6) DM (diabetes mellitus) ICD Codes: E11.9 - Diabetes mellitus SNOMED: 07050526 (7) Failure to thrive SNOMED: 59439091 Status: unchanged Assessment/Plan: pt diet gtube cbc bmp am dc to aru if clear Dani Manuel MD Sep 17, 2020 06:07
[2020-09-17 06:25] LABS: BASOPHILS % (AUTO) 0.4 % (0.0-2.0); EOSINOPHILS % (AUTO) 0.4 % (0.0-3.0); HEMATOCRIT 30.8 % (42.0-52.0); HEMOGLOBIN 9.8 G/DL (14.2-18.0); LYMPHOCYTES % (AUTO) 14.7 % (20.0-45.0); MEAN CORPUSCULAR VOLUME 92 FL (80-99); MONOCYTES % (AUTO) 7.3 % (1.0-10.0); NEUTROPHILS % (AUTO) 77.3 % (45.0-75.0); PLATELET COUNT 270 K/UL (150-450); RED BLOOD COUNT 3.34 M/UL (4.70-6.10); RED CELL DISTRIBUTION WIDTH 12.8 % (11.6-14.8); WHITE BLOOD COUNT 10.5 K/UL (4.8-10.8)
[2020-09-17 06:41] LABS: ANION GAP 8 mmol/L (5-15); BLOOD UREA NITROGEN 17 mg/dL (7-18); CALCIUM 8.8 MG/DL (8.5-10.1); CARBON DIOXIDE 28 MMOL/L (21-32); CHLORIDE 104 MMOL/L (98-107); POTASSIUM 3.9 MMOL/L (3.5-5.1); SODIUM 140 MMOL/L (136-145)
[2020-09-17] MEDS: NovoLOG Insulin Flexpen SUBQ SCH ×4 (06:48→20:08)
--- NOTE | 2020-09-17 07:10 | NUR ---
NURSE HAND-OFF: Important Events on Shift: Anxiety yelling noted Patient Status: Diet: Pending Orders: Pending Results/Labs: Pending MD notification: Latest Vital Signs: Temperature 98.8 , Pulse 71 , B/P 132 /65 , Respiratory Rate 18 , O2 SAT 99 , Room Air, O2 Flow Rate 6 . Vital Sign Comment: Latest Ledbetter Fall Score: 50 Fall Risk: High Risk Safety Measures: Call light Within Reach, Bed Alarm Zone 1, Side Rails Side Rails x2, Bed position Low and Locked. Fall Precautions: Yellow Socks Yellow Gown Door Sign Patient Fall Education Report given to .
--- NOTE | 2020-09-17 07:11 | NUR ---
NURSE NOTES: pt is asleep in bed. respiration is even and unlabored on room air. no facial grimacing for pain noted. HOB elevated. g-tube feeding on-hold at this time pending evaluation by Dr. Stephens. no acute distress noted. call light within reach.
[2020-09-17 08:00] VITALS: BP 119/64
[2020-09-17] MEDS ORDERED: OLANZapine 2.5mg tab ORAL SCH (09:00)
[2020-09-17] MEDS: Valproic Acid 250mg/5ml Liquid GT SCH ×2 (09:00→20:05)
[2020-09-17] MEDS: BusPIRone 5mg Tab ORAL SCH ×2 (09:00→17:19)
[2020-09-17] MEDS: Lisinopril 10mg tab ORAL SCH (09:00)
[2020-09-17] MEDS: levETIRAcetam 500mg/5ml Liquid GT SCH ×2 (09:00→20:05)
[2020-09-17] MEDS: metFORMIN 500mg tab ORAL SCH ×2 (09:00→17:19)
--- NOTE | 2020-09-17 09:09 | NUR ---
PT NOTE Per RN notes, G-tube anchor may be partially out. Rajiv BIRD requesting to defer PT evaluation until after patient is seen by Dr. Stephens and will clarify if OK to proceed with PT evaluation, will follow.
[2020-09-17] MEDS: Heparin 5000 units/ml inj SUBQ SCH ×2 (09:42→20:07)
--- NOTE | 2020-09-17 09:54 | NUR ---
RD ASSESSMENT & RECOMMENDATIONS SEE CARE ACTIVITY FOR COMPLETE ASSESSMENT DAILY ESTIMATED NEEDS: Needs based on underweight, DM 49kg 30-40 kcals/kg 3982-9042 total kcals 1-1.5 g protein/kg 49-74 g total protein 25-35ml/kcal mL/kg 8092-6598 total fluid mLs NUTRITION DIAGNOSIS: Increased kcal/prot needs R/T underweight status as evidenced by pt is 73% IBW, suspected 8.7% unfavorable wt loss x2 years, now s/p PEG placement. CURRENT TF:Glucerna 1.2 @60 when restarted PO DIET RECOMMENDATIONS: W/ BATH TESTER eval, liberalized regular diet + Glucerna TID w/ meals ENTERAL NUTRITION RECOMMENDATIONS: Glucerna 1.2 goal of 55ml/hr x24 hrs to provide 1320ml, 1584 kcal, 79g pro, 1063ml free H2O - If part of POC, rec Glucerna 1.2. Start @low rate 25ml/hr for 6 hrs, advance as tolerated 10ml/hr q4-6 hrs to goal rate. - Flush per MD/ HOB over 30 degrees. ADDITIONAL RECOMMENDATIONS: - CALIBRATED bedscale wt for accurate CBW, weekly wt monitoring - F/up w/ POC, oral PO vs GT - rec BATH TESTER eval prior to oral po intake - DC added D5 when TF resumes . . .
--- NOTE | 2020-09-17 10:00 | NUR ---
NURSE NOTES: All AM meds held, G-tube is dislodged, awaiting Dr. Stephens for evaluation.
--- NOTE | 2020-09-17 10:42 | Cardiac Electrophysiology PN ---
Assessment/Plan Assessment/Plan 1. Hypertension. On lisinopril 10 mg daily and p.r.n. clonidine as well. 2. Jwq-ovxkiot-ntcquvaqd diabetes, on insulin. 3. History of CVA and seizure disorder. 4. Dysphagia. S/P EGD and PEG placement Subjective Subjective Alert in NAD. S/P PEG yesterday but now has pain at the site Objective Last 24 Hour Vital Signs Date Time Temp Pulse Resp B/P (MAP) Pulse Ox O2 Delivery O2 Flow Rate FiO2 09/17/20 08:00 98.4 63 18 119/64 (82) 100 09/17/20 04:00 98.8 71 18 132/65 (87) 99 09/17/20 00:00 98.5 64 18 119/66 (83) 99 09/16/20 21:00 Room Air 09/16/20 20:00 98.9 70 20 110/71 (84) 99 09/16/20 17:34 130/75 (93) 09/16/20 16:20 130/75 (93) 09/16/20 16:00 97.9 73 19 176/96 (122) 100 09/16/20 14:50 140/85 (103) 09/16/20 14:34 168/99 (122) 09/16/20 12:00 98.2 64 20 157/105 (122) 97 09/16/20 10:51 192/96 09/16/20 10:50 192/96 09/16/20 10:40 97.1 60 20 192/96 (128) 96 Intake and Output 09/16/20 09/17/20 19:00 07:00 Intake Total 920 ml 780 ml Output Total 675 ml 300 ml Balance 245 ml 480 ml IV Total 920 ml 780 ml Output Urine Total 675 ml 300 ml Estimated Blood Loss 0 ml # Voids 1 Laboratory Tests Test 09/16/20 12:04 09/16/20 16:48 09/16/20 20:51 09/17/20 05:35 POC Whole Blood Glucose 203 MG/DL (74-106) H 168 MG/DL (74-106) H 141 MG/DL (74-106) H White Blood Count 10.5 K/UL (4.8-10.8) # Red Blood Count 3.34 M/UL (4.70-6.10) L Hemoglobin 9.8 G/DL (14.2-18.0) L Hematocrit 30.8 % (42.0-52.0) L Mean Corpuscular Volume 92 FL (80-99) Mean Corpuscular Hemoglobin 29.3 PG (27.0-31.0) Mean Corpuscular Hemoglobin Concent 31.8 G/DL (32.0-36.0) L Red Cell Distribution Width 12.8 % (11.6-14.8) Platelet Count 270 K/UL (150-450) Mean Platelet Volume 7.2 FL (6.5-10.1) Neutrophils (%) (Auto) 77.3 % (45.0-75.0) H Lymphocytes (%) (Auto) 14.7 % (20.0-45.0) L Monocytes (%) (Auto) 7.3 % (1.0-10.0) Eosinophils (%) (Auto) 0.4 % (0.0-3.0) Basophils (%) (Auto) 0.4 % (0.0-2.0) Sodium Level 140 MMOL/L (136-145) Potassium Level 3.9 MMOL/L (3.5-5.1) Chloride Level 104 MMOL/L (98-107) Carbon Dioxide Level 28 MMOL/L (21-32) Anion Gap 8 mmol/L (5-15) Blood Urea Nitrogen 17 mg/dL (7-18) Creatinine 1.0 MG/DL (0.55-1.30) Estimat Glomerular Filtration Rate > 60 mL/min (>60) Glucose Level 226 MG/DL (74-106) H Calcium Level 8.8 MG/DL (8.5-10.1) Test 09/17/20 06:32 POC Whole Blood Glucose 218 MG/DL (74-106) H Microbiology Date/Time Source Procedure Growth Status 09/14/20 17:04 Nasopharynx SARS-CoV-2 Antigen (Rapid)([facility]) - Final Complete Objective HEAD AND NECK: No JVD. LUNGS: Coarse rhonchi. CARDIOVASCULAR: Shows regular S1 and S2 with no gallop. ABDOMEN: Soft.PEG in place EXTREMITIES: Upper extremities are contracted. No pitting edema. Javier Becker MD Sep 17, 2020 10:41
[2020-09-17 12:00] VITALS: BP 129/61
--- NOTE | 2020-09-17 15:34 | General Progress Note ---
Subjective ROS Limited/Unobtainable: No Allergies: Coded Allergies: No Known Allergies (Unverified , 01/05/13) Objective Last 24 Hour Vital Signs Date Time Temp Pulse Resp B/P (MAP) Pulse Ox O2 Delivery O2 Flow Rate FiO2 09/17/20 12:00 98.0 60 19 129/61 (83) 100 09/17/20 09:00 Room Air 09/17/20 08:00 98.4 63 18 119/64 (82) 100 09/17/20 04:00 98.8 71 18 132/65 (87) 99 09/17/20 00:00 98.5 64 18 119/66 (83) 99 09/16/20 21:00 Room Air 09/16/20 20:00 98.9 70 20 110/71 (84) 99 09/16/20 17:34 130/75 (93) 09/16/20 16:20 130/75 (93) 09/16/20 16:00 97.9 73 19 176/96 (122) 100 Intake and Output 09/16/20 09/17/20 19:00 07:00 Intake Total 920 ml 780 ml Output Total 675 ml 300 ml Balance 245 ml 480 ml IV Total 920 ml 780 ml Output Urine Total 675 ml 300 ml Estimated Blood Loss 0 ml # Voids 1 Laboratory Tests 09/16/20 16:48: POC Whole Blood Glucose 168H 09/16/20 20:51: POC Whole Blood Glucose 141H 09/17/20 05:35: White Blood Count 10.5#, Red Blood Count 3.34L, Hemoglobin 9.8L, Hematocrit 30.8L, Mean Corpuscular Volume 92, Mean Corpuscular Hemoglobin 29.3, Mean Corpuscular Hemoglobin Concent 31.8L, Red Cell Distribution Width 12.8, Platelet Count 270, Mean Platelet Volume 7.2, Neutrophils (%) (Auto) 77.3H, Lymphocytes (%) (Auto) 14.7L, Monocytes (%) (Auto) 7.3, Eosinophils (%) (Auto) 0.4, Basophils (%) (Auto) 0.4, Sodium Level 140, Potassium Level 3.9, Chloride Level 104, Carbon Dioxide Level 28, Anion Gap 8, Blood Urea Nitrogen 17, Creatinine 1.0, Estimat Glomerular Filtration Rate > 60, Glucose Level 226H, Calcium Level 8.8 09/17/20 06:32: POC Whole Blood Glucose 218H 09/17/20 12:10: POC Whole Blood Glucose 238H Height (Feet): 5 Height (Inches): 0.00 Weight (Pounds): 160 General Appearance: alert EENT: normal ENT inspection Neck: supple Cardiovascular: normal rate Respiratory/Chest: decreased breath sounds Abdomen: normal bowel sounds, non tender, soft Extremities: non-tender Assessment/Plan Problem List: (1) Failure to thrive SNOMED: 00169256 (2) Acute CVA (cerebrovascular accident) ICD Codes: I63.9 - Acute CVA (cerebrovascular accident) SNOMED: 083005490 (3) COPD with acute exacerbation ICD Codes: J44.1 - Chronic obstructive pulmonary disease with (acute) ex acerbation SNOMED: 763339333 (4) DM (diabetes mellitus) ICD Codes: E11.9 - Diabetes mellitus SNOMED: 22966415 (5) HTN (hypertension) ICD Codes: I10 - Hypertension SNOMED: 19081542 (6) Seizure disorder ICD Codes: G40.909 - Seizure disorder SNOMED: 333757667 Status: unchanged Assessment/Plan: gt in place resume GTF ok for dc GI stand point James Stephens MD Sep 17, 2020 15:33
[2020-09-17 16:00] VITALS: BP 140/70
--- NOTE | 2020-09-17 19:16 | NUR ---
NURSE HAND-OFF: Important Events on Shift:N/A Patient Status: [] Diet: GTF Pending Orders: [] Pending Results/Labs:[] Pending MD notification:[] Latest Vital Signs: Temperature 97.4 , Pulse 66 , B/P 140 /70 , Respiratory Rate 20 , O2 SAT 100 , Room Air, O2 Flow Rate 6 . Vital Sign Comment: [] Latest Ledbetter Fall Score: 50 Fall Risk: High Risk Safety Measures: Call light Within Reach, Bed Alarm Zone 1, Side Rails Side Rails x2, Bed position Low and Locked. Fall Precautions: Yellow Socks Yellow Gown Door Sign Patient Fall Education Report given to GRACIELA.
--- NOTE | 2020-09-17 19:28 | NUR ---
NURSE NOTES: The Patient is alert and oriented x1 and doesn't appear to be in any distress. The patient is on Gtube feeding of Glucerna 1.2 @ 30ml hr with the goal of 60 ml/hr.Placement check is done and is intact with <10 ml of residual noted.The patient is also running fluids. The Resp is even and unlabored and he has a Right hand 20g that is patent and asymptomatic. Will continue to monitor as indicated.
[2020-09-17 20:00] VITALS: BP 125/73
[2020-09-18] VITALS: BP 133/78
[2020-09-18 04:00] VITALS: BP 122/70
[2020-09-18] MEDS: NovoLOG Insulin Flexpen SUBQ SCH ×2 (05:59→12:33)
--- NOTE | 2020-09-18 06:21 | Hematology/Onc Progress Note ---
Assessment/Plan Assessment/Plan Covering Dr. Carter Assessment/Plan Problem List: (1) CVA (cerebral vascular accident) ICD Codes: I63.9 - Cerebral infarction, unspecified SNOMED: 012599277 (2) COPD (chronic obstructive pulmonary disease) ICD Codes: J44.9 - Chronic obstructive pulmonary disease, unspecified SNOMED: 76174004 (3) Anemia ICD Codes: D64.9 - Anemia, unspecified SNOMED: 037007027 (4) Seizure disorder ICD Codes: G40.909 - Seizure disorder SNOMED: 140826869 (5) HTN (hypertension) ICD Codes: I10 - Hypertension SNOMED: 82952315 (6) DM (diabetes mellitus) ICD Codes: E11.9 - Diabetes mellitus SNOMED: 79154983 (7) Failure to thrive SNOMED: 23464129 Status: unchanged Assessment/Plan: pt diet gtube cbc bmp am dc to aru if clear Subjective Constitutional: Denies: no symptoms, chills, fever, malaise, weakness, other HEENT: Denies: no symptoms, eye pain, blurred vision, tearing, double vision, ear pain, ear discharge, nose pain, nose congestion, throat pain, throat swelling, mouth pain, mouth swelling, other Cardiovascular: Denies: no symptoms, chest pain, edema, irregular heart rate, lightheadedness, palpitations, syncope, other Gastrointestinal/Abdominal: Denies: no symptoms, abdomen distended, abdominal pain, black stools, tarry stools, blood in stool, constipated, diarrhea, difficulty swallowing, nausea, poor appetite, poor fluid intake, rectal bleeding, vomiting, other Neurologic/Psychiatric: Denies: no symptoms, anxiety, depressed, emotional problems, headache, numbness, paresthesia, pre-existing deficit, seizure, tingling, tremors, weakness, other Endocrine: Denies: no symptoms, excessive sweating, flushing, intolerance to cold, intolerance to heat, increased hunger, increased thirst, increased urine, unexplained weight gain, unexplained weight loss, other Hematologic/Lymphatic: Denies: no symptoms, anemia, easy bleeding, easy bruising, adenopathy, other Allergies: Coded Allergies: No Known Allergies (Unverified , 01/05/13) Subjective 09/17 is calm, cooperative, talked to John Rn, to restart home psych and antiseizure meds 09/18 a+o x 1, with gt in place, no bleeding, meds reviewed Objective Objective Current Medications Medications (Trade) Dose Ordered Sig/Kun Route PRN Reason Start Time Stop Time Status Last Admin Dose Admin Acetaminophen (Tylenol) 325 mg Q4H PRN ORAL MILD/TEMP 09/17/20 06:15 10/17/20 06:14 Bisacodyl (Dulcolax) 10 mg NEEDED RECTAL 09/17/20 06:15 12/16/20 06:14 Buspirone HCl (Buspar) 5 mg BID ORAL 09/17/20 09:00 12/16/20 08:59 09/17/20 17:19 Clonidine HCl (Catapres Tab) 0.1 mg Q4H PRN ORAL sbp>170 09/16/20 08:30 12/15/20 08:29 09/16/20 10:50 Dextrose (Dextrose 50%) 25 ml Q30M PRN IV Hypoglycemia 09/14/20 23:30 12/13/20 23:29 Dextrose (Dextrose 50%) 50 ml Q30M PRN IV Hypoglycemia 09/14/20 23:30 12/13/20 23:29 Dextrose/Sodium Chloride 1,000 ml @ 60 mls/hr [id number] IV 09/15/20 03:00 10/15/20 02:59 09/17/20 21:41 Ferrous Sulfate (Feosol) 325 mg DAILY ORAL 09/17/20 09:00 12/16/20 08:59 Folic Acid (Folate) 1 mg DAILY GT 09/17/20 09:00 10/17/20 08:59 Heparin Sodium (Porcine) (Heparin 5000 units/ml) 5,000 units EVERY 12 HOURS SUBQ 09/15/20 21:00 10/30/20 20:59 09/17/20 20:07 Insulin Aspart (NovoLOG) BEFORE MEALS AND HS SUBQ 09/15/20 06:30 12/14/20 06:29 09/18/20 05:59 Levetiracetam (Keppra) 500 mg Q12HR GT 09/17/20 09:00 10/17/20 08:59 09/17/20 20:05 Lisinopril (ZestriL) 10 mg DAILY ORAL 09/16/20 09:00 10/16/20 08:59 09/16/20 10:51 Metformin HCl (Glucophage) 500 mg TWICE A DAY ORAL 09/17/20 09:00 10/17/20 08:59 09/17/20 17:19 Olanzapine (ZyPREXA) 5 mg BID ORAL 09/17/20 09:00 11/01/20 08:59 09/17/20 17:19 Valproic Acid (Depakene) 500 mg EVERY 12 HOURS GT 09/17/20 09:00 10/17/20 08:59 09/17/20 20:05 Last 24 Hour Vital Signs Date Time Temp Pulse Resp B/P (MAP) Pulse Ox O2 Delivery O2 Flow Rate FiO2 09/18/20 04:00 98.5 60 18 122/70 (87) 96 09/18/20 00:00 98.4 69 18 133/78 (96) 97 09/17/20 21:00 Room Air 09/17/20 20:00 98.3 65 18 125/73 (90) 97 09/17/20 16:00 97.4 66 20 140/70 (93) 100 09/17/20 12:00 98.0 60 19 129/61 (83) 100 09/17/20 09:00 Room Air 09/17/20 08:00 98.4 63 18 119/64 (82) 100 09/17/20 04:00 98.8 71 18 132/65 (87) 99 09/17/20 00:00 98.5 64 18 119/66 (83) 99 09/16/20 21:00 Room Air 09/16/20 20:00 98.9 70 20 110/71 (84) 99 09/16/20 17:34 130/75 (93) 09/16/20 16:20 130/75 (93) 09/16/20 16:00 97.9 73 19 176/96 (122) 100 09/16/20 14:50 140/85 (103) 09/16/20 14:34 168/99 (122) 09/16/20 12:00 98.2 64 20 157/105 (122) 97 09/16/20 10:51 192/96 09/16/20 10:50 192/96 09/16/20 10:40 97.1 60 20 192/96 (128) 96 09/16/20 10:00 98.6 61 16 197/99 96 Room Air 09/16/20 09:55 54 14 184/93 97 Room Air 09/16/20 09:50 60 11 180/90 100 Simple Mask 6 09/16/20 09:45 97.7 66 12 184/94 100 Simple Mask 6 09/16/20 09:43 64 18 97 09/16/20 09:00 Room Air 09/16/20 08:00 97.5 66 19 153/90 (111) 95 Intake and Output 09/17/20 09/18/20 19:00 07:00 Intake Total 60 ml 660 ml Output Total 350 ml Balance -290 ml 660 ml IV Total 60 ml 660 ml Output Urine Total 350 ml Labs Test 09/15/20 11:44 09/15/20 16:19 09/16/20 04:45 09/16/20 08:47 POC Whole Blood Glucose 250 MG/DL (74-106) 159 MG/DL (74-106) 245 MG/DL (74-106) White Blood Count 6.3 K/UL (4.8-10.8) Red Blood Count 3.64 M/UL (4.70-6.10) Hemoglobin 10.7 G/DL (14.2-18.0) Hematocrit 33.4 % (42.0-52.0) Mean Corpuscular Volume 92 FL (80-99) Mean Corpuscular Hemoglobin 29.4 PG (27.0-31.0) Mean Corpuscular Hemoglobin Concent 32.1 G/DL (32.0-36.0) Red Cell Distribution Width 13.2 % (11.6-14.8) Platelet Count 305 K/UL (150-450) Mean Platelet Volume 7.4 FL (6.5-10.1) Neutrophils (%) (Auto) 60.6 % (45.0-75.0) Lymphocytes (%) (Auto) 28.2 % (20.0-45.0) Monocytes (%) (Auto) 8.8 % (1.0-10.0) Eosinophils (%) (Auto) 1.6 % (0.0-3.0) Basophils (%) (Auto) 0.8 % (0.0-2.0) Prothrombin Time 11.7 SEC (9.30-11.50) Prothromb Time International Ratio 1.1 (0.9-1.1) Activated Partial Thromboplast Time 25 SEC (23-33) Sodium Level 142 MMOL/L (136-145) Potassium Level 3.8 MMOL/L (3.5-5.1) Chloride Level 105 MMOL/L (98-107) Carbon Dioxide Level 29 MMOL/L (21-32) Anion Gap 8 mmol/L (5-15) Blood Urea Nitrogen 15 mg/dL (7-18) Creatinine 1.0 MG/DL (0.55-1.30) Estimat Glomerular Filtration Rate > 60 mL/min (>60) Glucose Level 181 MG/DL (74-106) Calcium Level 9.2 MG/DL (8.5-10.1) Iron Level 89 ug/dL (50-175) Total Iron Binding Capacity 354 ug/dL (250-450) Percent Iron Saturation 25 % (15-50) Unsaturated Iron Binding 265 ug/dL (112-346) Test 09/16/20 12:04 09/16/20 16:48 09/16/20 20:51 09/17/20 05:35 POC Whole Blood Glucose 203 MG/DL (74-106) 168 MG/DL (74-106) 141 MG/DL (74-106) White Blood Count 10.5 K/UL (4.8-10.8) Red Blood Count 3.34 M/UL (4.70-6.10) Hemoglobin 9.8 G/DL (14.2-18.0) Hematocrit 30.8 % (42.0-52.0) Mean Corpuscular Volume 92 FL (80-99) Mean Corpuscular Hemoglobin 29.3 PG (27.0-31.0) Mean Corpuscular Hemoglobin Concent 31.8 G/DL (32.0-36.0) Red Cell Distribution Width 12.8 % (11.6-14.8) Platelet Count 270 K/UL (150-450) Mean Platelet Volume 7.2 FL (6.5-10.1) Neutrophils (%) (Auto) 77.3 % (45.0-75.0) Lymphocytes (%) (Auto) 14.7 % (20.0-45.0) Monocytes (%) (Auto) 7.3 % (1.0-10.0) Eosinophils (%) (Auto) 0.4 % (0.0-3.0) Basophils (%) (Auto) 0.4 % (0.0-2.0) Sodium Level 140 MMOL/L (136-145) Potassium Level 3.9 MMOL/L (3.5-5.1) Chloride Level 104 MMOL/L (98-107) Carbon Dioxide Level 28 MMOL/L (21-32) Anion Gap 8 mmol/L (5-15) Blood Urea Nitrogen 17 mg/dL (7-18) Creatinine 1.0 MG/DL (0.55-1.30) Estimat Glomerular Filtration Rate > 60 mL/min (>60) Glucose Level 226 MG/DL (74-106) Calcium Level 8.8 MG/DL (8.5-10.1) Test 09/17/20 06:32 09/17/20 12:10 09/17/20 16:10 09/17/20 20:03 POC Whole Blood Glucose 218 MG/DL (74-106) 238 MG/DL (74-106) 150 MG/DL (74-106) 174 MG/DL (74-106) Test 09/18/20 05:56 POC Whole Blood Glucose 248 MG/DL (74-106) Height (Feet): 5 Height (Inches): 0.00 Weight (Pounds): 160 Objective General Appearance: lethargic EENT: normal ENT inspection Neck: normal alignment Cardiovascular: normal peripheral pulses, normal rate, regular rhythm Respiratory/Chest: chest wall non-tender, lungs clear, normal breath sounds Abdomen: normal bowel sounds, non tender, soft Extremities: normal inspection Edema: no edema noted Arm (L), no edema noted Arm (R), no edema noted Leg (L), no edema noted Leg (R), no edema noted Pedal (L), no edema noted Pedal (R), no edema noted Generalized Neurologic: responsive, motor weakness Skin: normal pigmentation, warm/dry Dani Manuel MD Sep 18, 2020 06:21
--- NOTE | 2020-09-18 07:00 | NUR ---
NURSE HAND-OFF: Important Events on Shift: Patient Status: Diet: Pending Orders: Pending Results/Labs: Pending MD notification: Latest Vital Signs: Temperature 98.5 , Pulse 60 , B/P 122 /70 , Respiratory Rate 18 , O2 SAT 96 , Room Air, O2 Flow Rate 6 . Vital Sign Comment: Latest Ledbetter Fall Score: 50 Fall Risk: High Risk Safety Measures: Call light Within Reach, Bed Alarm Zone 1, Side Rails Side Rails x2, Bed position Low and Locked. Fall Precautions: Yellow Socks Yellow Gown Door Sign Patient Fall Education Report given to .
--- NOTE | 2020-09-18 07:25 | NUR ---
NURSE NOTES: Patient is awake, alert and oriented x1, nonverbal. S/P PEG placement and tube feeding Glucerna 1.2 @ 50ml hr with the goal of 60 ml/hr. abdominal binder inplaced. No gastric residual and tolerated tube feeding well. HOB elevated for aspiration precaution. siderails are padded for seizure precaution. On RA. Right hand 20g that is patent, intact and asymptomatic. IVF infusing well. kept bed in the lowest position. siderails are up x3. bed alarm activated and brakes engaged. Will continue to monitor as indicated.
[2020-09-18 08:00] VITALS: BP 111/52
[2020-09-18] MEDS: Lisinopril 10mg tab ORAL SCH (08:25)
[2020-09-18] MEDS: metFORMIN 500mg tab ORAL SCH (08:25)
[2020-09-18] MEDS: BusPIRone 5mg Tab ORAL SCH (08:25)
[2020-09-18] MEDS: levETIRAcetam 500mg/5ml Liquid GT SCH (08:26)
[2020-09-18] MEDS: Valproic Acid 250mg/5ml Liquid GT SCH (08:26)
[2020-09-18] MEDS: Heparin 5000 units/ml inj SUBQ SCH (08:28)
--- NOTE | 2020-09-18 09:45 | NUR ---
PT NOTE Attempted to see patient for PT treatment. Patient sleeping, attempted to wake patient. Patient opens his eyes briefly, then closes them again. Patient unable to participate with PT evaluation at this time, will re-attempt later today, Eileen CHEMISTRY TECHNOLOGIST notified.
--- NOTE | 2020-09-18 10:00 | NUR ---
NURSE NOTES: advanced tube feeding to 60ml/hr to goal. no gastric residual noted. kept hob elevated. will cont to monitor.
[2020-09-18 12:00] VITALS: BP 133/82
--- NOTE | 2020-09-18 12:07 | NUR ---
*-*DISCHARGE PLANNED*-* PATIENT HAS BEEN ACCEPTED AND WILL BE DISCHARGE TO: [facility] P: [phone] FOR NURSE TO NURSE REPORT ROOM# 1.A [facility] SET FOR 2PM S/W [place] [id number]. S/W PATIENTS DAUGHTER AMBAR, WHO IS IN AGREEMENT WITH DISCHARGE PLAN.
--- NOTE | 2020-09-18 12:37 | Cardiology Report ---
APPROVED REPORT EXAM: Two-dimensional and M-mode echocardiogram with Doppler and color Doppler. INDICATION Hypertension <Conclusion> Limited study due to poor acoustic windows. Study quality precludes accurate assessment of regional wall motion. Normal left ventricular systolic function and wall motion to extent visualized. Left ventricular ejection fraction estimated to be grossly normal.
--- NOTE | 2020-09-18 13:30 | NUR ---
PT NOTE Second attempt to see patient for PT evaluation. Patient sleeping, attempted to wake patient. Patient says "no", turns his head from side to side, does not open his eyes. Patient non-compliant with attempt to perform PT evaluation. Eileen CIAIO LUMITE INJECTOR notified, will follow.
[2020-09-18] MEDS: D5 1/2NS 1,000 ML IV SCH (14:20)
--- NOTE | 2020-09-18 14:30 | NUR ---
NURSE NOTES: DISCHARGED TO [facility] TO ROOM 2A. REPORT GIVEN TO STELLA. REMOVED PIV. SKIN IS INTACT. TOLERATING TUBE FEEDING WELL. NO GASTRIC RESIDUAL NOTED. ABDOMINAL BINDER PLACED AND TUBE FEEDING DRSG CHANGED. KEPT HOB ELEVATED FOR ASPIRATION PRECAUTION. NO PERSONAL BELONGINGS NOTED.
--- NOTE | 2020-09-18 16:31 | General Progress Note ---
Subjective ROS Limited/Unobtainable: No Allergies: Coded Allergies: No Known Allergies (Unverified , 01/05/13) Objective Last 24 Hour Vital Signs Date Time Temp Pulse Resp B/P (MAP) Pulse Ox O2 Delivery O2 Flow Rate FiO2 09/18/20 12:00 97.2 83 20 133/82 (99) 98 09/18/20 09:00 Room Air 09/18/20 08:25 119/58 09/18/20 08:00 98.4 75 20 111/52 (71) 99 09/18/20 04:00 98.5 60 18 122/70 (87) 96 09/18/20 00:00 98.4 69 18 133/78 (96) 97 09/17/20 21:00 Room Air 09/17/20 20:00 98.3 65 18 125/73 (90) 97 Intake and Output 09/17/20 09/18/20 19:00 07:00 Intake Total 190 ml 1390 ml Output Total 370 ml 1100 ml Balance -180 ml 290 ml Intake Oral 120 ml Free Water 100 ml 100 ml IV Total 60 ml 720 ml Tube Feeding 30 ml 450 ml Output Urine Total 370 ml 1100 ml # Voids 2 Laboratory Tests 09/17/20 20:03: POC Whole Blood Glucose 174H 09/18/20 05:56: POC Whole Blood Glucose 248H 09/18/20 11:42: POC Whole Blood Glucose 189H Height (Feet): 5 Height (Inches): 0.00 Weight (Pounds): 160 General Appearance: no apparent distress EENT: normal ENT inspection Neck: supple Cardiovascular: normal rate Respiratory/Chest: decreased breath sounds Abdomen: hypoactive bowel sounds Extremities: non-tender Assessment/Plan Problem List: (1) Failure to thrive SNOMED: 24429808 (2) Acute CVA (cerebrovascular accident) ICD Codes: I63.9 - Acute CVA (cerebrovascular accident) SNOMED: 997808585 (3) COPD with acute exacerbation ICD Codes: J44.1 - Chronic obstructive pulmonary disease with (acute) exacerbation SNOMED: 684141668 (4) DM (diabetes mellitus) ICD Codes: E11.9 - Diabetes mellitus SNOMED: 51183568 (5) HTN (hypertension) ICD Codes: I10 - Hypertension SNOMED: 44349035 (6) Seizure disorder ICD Codes: G40.909 - Seizure disorder SNOMED: 069112240 Status: unchanged Assessment/Plan: gt in place GTF ok for dc GI stand point James Stephens MD Sep 18, 2020 16:30
--- NOTE | 2020-09-18 16:35 | Cardiac Electrophysiology PN ---
Assessment/Plan Assessment/Plan 1. Hypertension. On lisinopril 10 mg daily and p.r.n. clonidine as well. 2. Lfs-zlfkslh-upeumtacs diabetes, on insulin. 3. History of CVA and seizure disorder. 4. Dysphagia. S/P EGD and PEG placement DW RN DC to [facility] Subjective Subjective Alert in NAD. S/P PEG. DC to [facility] in progress Objective Last 24 Hour Vital Signs Date Time Temp Pulse Resp B/P (MAP) Pulse Ox O2 Delivery O2 Flow Rate FiO2 09/18/20 12:00 97.2 83 20 133/82 (99) 98 09/18/20 09:00 Room Air 09/18/20 08:25 119/58 09/18/20 08:00 98.4 75 20 111/52 (71) 99 09/18/20 04:00 98.5 60 18 122/70 (87) 96 09/18/20 00:00 98.4 69 18 133/78 (96) 97 09/17/20 21:00 Room Air 09/17/20 20:00 98.3 65 18 125/73 (90) 97 Intake and Output 09/17/20 09/18/20 19:00 07:00 Intake Total 190 ml 1390 ml Output Total 370 ml 1100 ml Balance -180 ml 290 ml Intake Oral 120 ml Free Water 100 ml 100 ml IV Total 60 ml 720 ml Tube Feeding 30 ml 450 ml Output Urine Total 370 ml 1100 ml # Voids 2 Laboratory Tests Test 09/17/20 20:03 09/18/20 05:56 09/18/20 11:42 POC Whole Blood Glucose 174 MG/DL (74-106) H 248 MG/DL (74-106) H 189 MG/DL (74-106) H Objective HEAD AND NECK: No JVD. LUNGS: Coarse rhonchi. CARDIOVASCULAR: Shows regular S1 and S2 with no gallop. ABDOMEN: Soft.PEG in place EXTREMITIES: Upper extremities are contracted. No pitting edema. Javier Becker MD Sep 18, 2020 16:35
--- NOTE | 2020-09-21 10:11 | Discharge Summary ---
Discharge Summary Discharge Summary _ Date of admission: 09/14/2020 Date of discharge: 09/18/[address] Carter History of Present Illness and Brief Hospital Course Mr. Moon is a 69-year-old male with past medical history of diabetes mellitus, and stroke with dysphagia, who was sent to ED from SNF for gastrotomy tube placement. Patient had high risk of aspiration due to dysphagia and lethargy secondary to his history of stroke. Patient was admitted to the hospital for G-tube placement Patient underwent endoscopy with PEG. The functionality of G-tube was confirmed. Patient was medically stable for discharge and was discharged back to SNF on 09/18/2020. Consultants: Cardiology Dr. Becker Psychotherapy Dr. Villavicencio Gastroenterology Dr. Stephens Discharge Condition Stable Discharge Activity As tolerated Discharge Diet Tube feeding Final diagnoses Hypertension Noninsulin-dependent diabetes History of CVA History of seizure disorder Dysphagia, status post PEG placement Schizoaffective disorder, bipolar type History of COPD I have been assigned to dictate discharge summary for this account. I was not involved in the patient's management Greg Miramontes Sep 21, 2020 10:11
== END 2020-09-18 14:30 | DRG 57 ==
LOC: EDBD 16:01 → EMR 16:39 → 4E 16:50 → EDBEDREQ 18:32
DX: I69.391 Dysphagia following cerebral infarction (principal); E46 Unspecified protein-calorie malnutrition; I69.354 Hemiplegia and hemiparesis following cerebral infarction affecting left non-dominant side; R13.10 Dysphagia, unspecified; I11.9 Hypertensive heart disease without heart failure; E11.9 Type 2 diabetes mellitus without complications; J44.9 Chronic obstructive pulmonary disease, unspecified; Z79.4 Long term (current) use of insulin; R62.7 Adult failure to thrive; R53.1 Weakness; F25.0 Schizoaffective disorder, bipolar type; G40.909 Epilepsy, unspecified, not intractable, without status epilepticus
CPT/HCPCS: 36415; 80048; 80053; 82962; 83540; 83550; 85025; 85610; 85730; 93005; 93306; 94003; 94150; 99285; J1815